=== PATIENT | male | born 1960 | race Caucasian/White ===

== ENCOUNTER → 2017-11-15 10:21 | Outpatient (CLI) | payer BC, SELFPAY ==
--- NOTE | 2017-11-15 10:23 | NM_ITS ---
CLINICAL: 57-year-old male with reported history of apparent pulmonary embolism and suspected pulmonary hypertension. VENTILATION-PERFUSION LUNG SCINTIGRAPHY COMPARISON: CTA of the chest report 09/11/2017, plain film chest radiograph report 11/15/2017 FINDINGS: The patient was administered 49.4 mCi 99m Tc DTPA aerosol. The aerosol ventilation study demonstrates normal ventilation defined in the bilateral lung marino. No segmental or subsegmental ventilatory defects are identified. There is no central clumping of the aerosol visualized. Following the intravenous administration of 5.1 mCi of 99m Tc MAA, the pulmonary perfusion study reveals uniform perfusion throughout both lung marino. There are no segmental or subsegmental perfusion defects consistently identified on review of sequential acquisitions-projections. NM/Lung Scan Vent/Perf IMPRESSION: 1. NORMAL 99m Tc DTPA aerosol ventilation/Tc 99m MAA pulmonary perfusion imaging examination, according to PIOPED II interpretive criteria. (Sojimman et al, Radiology 246: 941, 2008 Sobrit et al, J Nucl Med 49: 1741, 2008). 2. Patients with documented pulmonary hypertension and the presence of low probability, very low probability and normal ventilation-perfusion lung scintigraphy are associated with a low likelihood of thromboembolic pulmonary hypertension. (Mango et al, Chest 84: 679, 1983 Lisbona et al, AJR 144: 27, 1985). Electronically Signed: Tucker Arreguin DO at 8:21 EDT Tel , Service support ,
--- NOTE | 2017-11-15 11:05 | RAD_ITS ---
STUDY: X-RAY CHEST REASON FOR EXAM: Male, 57 years old. Cough and short of breath. TECHNIQUE: Frontal and lateral views of the chest. COMPARISON: 09/11/2017. FINDINGS: The lungs are clear and expanded. There is no demonstrated pleural abnormality. Normal size heart. Normal mediastinum and philomena. Normal visualized pulmonary arteries. Normal visualized aortic arch and descending thoracic aorta. There are diffuse degenerative changes of the visualized thoracic spine. Normal visualized ribs, clavicles, and shoulders. There is no demonstrated abnormality of the visualized soft tissue structures of the upper abdomen. RAD/Chest PA and Lateral IMPRESSION: No acute chest disease. Electronically Signed: Esvin Arnett MD at 16:52 EDT , Service support ,
== END ==
PROVIDERS: Family Provider Family Medicine; PCP Family Medicine; Visit Provider Nurse Practitioner Acute Care
DX: I26.99 Other pulmonary embolism without acute cor pulmonale (principal)
CPT/HCPCS: 71046; 78582; A9540; A9567

== ENCOUNTER → 2017-12-10 06:54 | Outpatient (CLI) | payer OTHER, SELFPAY ==
--- NOTE | 2017-12-11 08:34 | PFT ---
INTRODUCTION: The patient is a 57-year-old male currently under the care of Dr. Doyle that presents for pulmonary function testing secondary to a diagnosis of pulmonary embolism. Respiratory therapy reports good patient effort and reports no other concerns. Bronchodilators were used during testing. INTERPRETATION: Forced expiration spirometry demonstrates no evidence of a large airways obstructive ventilatory defect. There was no significant response to aerosolized bronchodilators, based upon strict ATS criteria. Spirograms are of good quality and plateau normally. The respiratory flow volume loop appears normal. Body plethysmography was performed and reveals lung volumes to be within normal limits. Diffusing capacity by single breath CO is within normal limits at 84% of predicted. IMPRESSION: These pulmonary function studies are essentially within normal limits. There has been little overall change in the patient's PFTs since 2016.
== END ==
PROVIDERS: Family Provider Family Medicine; PCP Family Medicine; Visit Provider Nurse Practitioner Acute Care
DX: I26.99 Other pulmonary embolism without acute cor pulmonale (principal)
CPT/HCPCS: 94060; 94726; 94729

== ENCOUNTER → 2018-01-29 08:58 | Outpatient (CLI) | payer OTHER, SELFPAY ==
[2018-02-01 12:07] LABS: Aspirgillus flavus Negative (Neg:<1:1); Aspirgillus fumigatus Negative (Neg:<1:1); Aspirgillus niger Negative (Neg:<1:1)
[2018-02-02 09:10] LABS: Immunoglobulin E 205 IU/mL (0-100)
[2018-02-13 10:00] LABS: Alternaria alternata <0.10 kU/L (Class 0); Bermuda Grass <0.10 kU/L (Class 0); Bluegrass, Kentucky <0.10 kU/L (Class 0); Cat Hair/Dander, Standard <0.10 kU/L (Class 0); D farinae Mite <0.10 kU/L (Class 0); D pteronyssinus <0.10 kU/L (Class 0); Dog Epithelia <0.10 kU/L (Class 0); Elm, American White <0.10 kU/L (Class 0); Oak, White <0.10 kU/L (Class 0); Plantain, English <0.10 kU/L (Class 0); Ragweed, Short/Common <0.10 kU/L (Class 0)
[2018-02-13 10:39] LABS: Mouse Urine <0.10 kU/L (Class 0)
== END ==
PROVIDERS: Family Provider Family Medicine; PCP Family Medicine; Visit Provider Nurse Practitioner Acute Care
DX: J45.50 Severe persistent asthma, uncomplicated (principal)
CPT/HCPCS: 82785; 86003; 86606

== ENCOUNTER 2018-07-31 14:36 | Emergency (ER) | payer OTHER, SELFPAY ==
[2018-07-21 10:15] VITALS: BMI 34.5
[2018-07-31 14:38] VITALS: BP 137/71; PULSE 72; RESP 18; TEMP 36.4; O2SAT 96; BMI 33.9
--- NOTE | 2018-07-31 14:54 | EKG12_ITS ---
Test Reason : DYSRHYTHMIA Blood Pressure : / mmHG Vent. Rate : 072 BPM Atrial Rate : 072 BPM P-R Int : 134 ms QRS Dur : 084 ms QT Int : 382 ms P-R-T Axes : 032 002 073 degrees QTc Int : 418 ms Normal sinus rhythm Confirmed by TORSTEN HOANG, ROSA MARIA ([id number]), editor managing newspaper SONAM SALAZAR ([id number]) on 08/05/2018 3:35:06 PM Referred By: ELISSA Confirmed By:ROSA MARIA SARMIENTO MD
--- NOTE | 2018-07-31 14:54 | RAD_ITS ---
STUDY: X-RAY CHEST REASON FOR EXAM: Male, 58 years old. Cough, chest pain TECHNIQUE: PA and lateral chest COMPARISON: 11/15/2017 x-ray chest, VQ scan 11/15/2017, CT chest 09/11/2017. FINDINGS: Acutely clear lungs. Hyperlucent features consistent with underlying COPD. Benign calcified granuloma of the right upper lobe. No effusion or pneumothorax. Normal cardiac mediastinal silhouette. No acute osseous process. Mildly prominent loops of small bowel in the upper abdomen, nonspecific. Gas-filled, great is diameter about 3.5 cm. Suspected air-fluid level. RAD/Chest PA and Lateral IMPRESSION: No acute cardiopulmonary process. Mildly conspicuous small bowel pattern in the upper abdomen, incomplete characterized. Follow-up supine and upright KUB is recommended. Electronically Signed: Tucker Hazel MD at 16:10 EST Tel , Service support ,
--- NOTE | 2018-07-31 14:58 | ED.VISSUMM ---
- ER Visit Summary Date of Service: 07/31/18 Chief Complaint: Cough, shortness of breath History of Present Illness: The patient is a 58 M with history of recurrent pneumonia and prior pulmonary embolus presents to the emergency department with cough and shortness of breath. Patient states that he had cough for the past 10 days. He actually saw Dr. Doyle in the office. He felt that was likely viral. He was placed on prednisone burst. He states that he did improve, but over the past 2 days, symptoms worsened. He has had cough, chest pain, productive sputum, nausea, and vomiting. He states this feels very similar to when he had pneumonia before. He states that his called Dr. Doyle's office and he was referred to the emergency department for further evaluation. He has had low-grade fever. He is also had chills. He denies any dysuria. He denies any change in bowel habits. He does have a prior pulmonary embolus in September, but is off anticoagulants. He states that he did have a surgery on his esophagus for reflux at [facility] 3 years ago so he does have pain when he vomits. Physical Examination: Vital signs reviewed General: Well-nourished, well-developed Head: Normocephalic, atraumatic Eyes: Pupils equal and reactive, extraocular muscles intact Neck, supple, no lymphadenopathy Heart: Regular rate and rhythm Respiratory: No distress, clear bilaterally Abdomen: Soft, mildly tender in the midepigastric area without rebound or guarding, softly distended, no peritoneal signs Back: Nontender Extremities: Nontender, no edema, no cords Skin: Normal color no rash Neuro: Alert and oriented, no focal or lateralizing deficits Test Results: [] Emergency Department Course and Treatment: The patient presents with cough, generalized malaise, but also has had nausea and vomiting. His abdomen was mildly distended and minimally tender in the midepigastric area. I initially started with a metabolic workup to rule out pneumonia given the patient's history. I also discussed the patient with Dr. Doyle. His labs are unremarkable except for mild leukocytosis. His chest x-ray shows no infiltrate, but he does had some air-fluid levels within his abdomen. Because of this, I obtained a noncontrast CT of his abdomen. This does demonstrate a small bowel obstruction with ileitis. The patient was covered with broad-spectrum antibiotics. It is not mechanical obstruction. After discussion with the patient and family, they are requesting transfer to [facility] where his surgeon is. The patient was discussed with the transfer line and was accepted by Dr. Culp. He will be transferred for surgical evaluation Treatment Plan: [] Disposition: Transfer Impression: 1. Nausea vomiting 2. Small bowel obstruction This note was generated with [employer] dictation software. It may contain incorrect words, spelling, and punctuation that were not noted in review of the chart prior to signing ED Disposition - Plan for ED Patient: Chief Complaint: General Illness Referrals: Arnulfo Garcia III, MD [Primary Care Provider] -
[2018-07-31 15:23] LABS: Absolute Lymphocyte Count 1.41 X10^3/ul (0.83-4.51); Absolute Neutrophil Count 9.9 X10^3/uL (2.0-7.7); Basophil# 0.06 X10^3/uL; Basophil% 0.5 % (0-1); Eosinophil# 0.13 X10^3/uL; Eosinophils% 1.1 % (0-5); Hematocrit 49.6 % (40-54); Hemoglobin 16.6 g/dl (13.0-16.5); Lymphocyte # 1.41 X10^3/ul (4.0); Lymphocyte % 11.6 % (19-41); Mean Corp Hgb Conc 33.5 g/gl (32-36); Mean Corpuscular Hgb 31.4 pg (27.0-32.0); Mean Corpuscular Volume 93.9 fL (80-94); Mean Platelet Vol. 8.9 fl (6.2-12.0); Monocyte% 5.7 % (0-10); Neutrophil # 9.87 X10^3/uL (2.7-7.7); Neutrophil % 80.9 % (47-70); Platelet Count 375 K/mm3 (150-450); RBC Distribution Width CV 12.4 % (11.6-14.6); RBC Distribution Width SD 42.5 fl (35.1-43.9); Red Blood Count 5.28 M/mm3 (4.6-6.2); White Blood Count 12.2 K/mm3 (4.4-11.0)
[2018-07-31] MEDS: 0.9% Normal Saline 1,000 ML 1000 ML IV (15:33)
[2018-07-31 15:34] VITALS: BP 133/84; PULSE 73; RESP 18; O2SAT 98
[2018-07-31 15:34] LABS: POSITIVE COUNT NO; POSITIVE DIFFERENTIAL NO; POSITIVE MORPHOLOGY NO
[2018-07-31 15:36] LABS: AST(SGOT) 20 U/L (15-37); Alanine Aminotransfer ALT/SGPT 30 U/L (16-61); Albumin, Serum 4.3 g/dL (3.2-5.0); Alkaline Phosphatase 157 U/L (45-117); Anion Gap 5 (5-15); BUN 9 mg/dL (7-18); Calcium,Total 9.2 mg/dL (8.5-10.1); Chloride 105 mmol/L (98-107); Creatinine, Serum 1.13 mg/dL (0.70-1.30); EST Glomerular Filtration Rate 71 mL/min (>60); Est Glom Filt Rate - Afr Amer 85 mL/min (>60); Estimated Creatinine Clearance 74.97 ml/min; Globulin 4.1 g/dL (2.2-4.2); Glucose 118 mg/dL (74-106); Lipase 97 U/L (73-393); Potassium 3.6 mmol/L (3.5-5.1); Protein, Total 8.4 g/dL (6.4-8.2); Sodium Level 140 mmol/L (136-145)
[2018-07-31 15:49] VITALS: O2SAT 95
[2018-07-31 15:50] LABS: Lactic Acid 0.8 mmol/L (0.4-2.0)
--- NOTE | 2018-07-31 16:00 | CT_ITS ---
STUDY: CT ABDOMEN AND PELVIS WITHOUT CONTRAST REASON FOR EXAM: Male, 58 years old. Abdominal pain, nausea, vomiting, diarrhea, body aches. History of appendectomy, cholecystectomy, hypertension. RADIATION DOSAGE (If Supplied By Facility): CTDIvol = ( 18.67 ) mGy, DLP = ( 1077.29 ) mGycm TECHNIQUE: Transaxial images were obtained from the dome of the diaphragm to the symphysis pubis without oral contrast, and without intravenous contrast. Sagittal and coronal images were reconstructed. Individualized dose optimization techniques were used for this CT. COMPARISON: CT abdomen and pelvis 06/17/2015. FINDINGS: Body wall soft tissues: No acute process. Osseous structures: Mild multilevel lumbar spondylosis without significant stenosis. Slight scoliosis. Ankylosis of the right SI joint. No significant degenerative features of the left. Mild hip joint degenerative changes. Inferior chest: Lung bases clear, normal cardiac base with no pericardial effusion. Minimal sliding hiatal hernia. There is mild thickening and fatty infiltration the wall of the distal most esophagus which may be associated with GERD and suggest chronic inflammation. Similar features seen on prior imaging of 2015. Hepatobiliary: Cholecystectomy. Borderline hepatomegaly, craniocaudal right liver 17.9 cm. Nondilated biliary tree. Pancreas: Mild atrophy. Spleen: Normal. Adrenal glands: Normal. Urogenital: There are small low-density cystlike foci of each kidney, the largest in the right renal superior pole, each stable compared to prior imaging of 2015, consistent with benignity. There is minimal chronic perinephric stranding. There is a solitary punctate nonobstructing calyceal calculus of the right renal superior pole measuring less than 2 mm. There are no retained calculi in the left kidney. Normal collecting systems, ureters, urinary bladder, prostate and seminal vesicles. Pelvic floor and sidewalls and retroperitoneum: No mass or adenopathy. Vasculature: No acute process. Stomach: Mild chronic fatty infiltration the wall the distal stomach, stable compared to imaging of 2015. Small bowel and mesentery: Mild chronic fatty infiltration the wall the duodenum without acute inflammatory features stable compared to prior imaging. Normal jejunum. Gradually increasing dilatation of fluid-filled ileum to the level of the distal ileum, where there is mild circumferential fatty infiltration and thickening of the wall of the distal and terminal ileum in a pattern consistent with sequela from prior ileitis, with evidence of very mild induration and hyperemia in the fat adjacent to a few segments, consistent with mild acute ileitis. The maximum caliber of the distal small bowel is 3.8 cm. There is no abrupt transition point. No evidence of mechanical obstruction. Large bowel: The appendix is surgically absent. There is mild fatty infiltration the wall of the ascending colon, hepatic flexure, transverse colon, splenic flexure descending colon and sigmoid, and rectum, suggesting sequela of prior inflammation without evidence of acute colitis at this time. Stable features compared to prior imaging. Free fluid or free air: None. CT/Abdomen/Pelvis without Cont IMPRESSION: Dilated ileum, fluid-filled, air-fluid levels, consistent with a low-grade partial obstruction secondary to acute distal ileitis. No evidence of focal mechanical obstruction. There is fatty infiltration in the wall of the distal stomach, proximal duodenum, distal ileum, terminal ileum and the entirety of the large bowel and rectum. These features have been present since prior imaging of 2014 and typically represents sequela of prior inflammation. The distribution suggests the possibility of underlying Crohn's disease. Electronically Signed: Tucker Hazel MD at 17:23 EST Tel , Service support ,
[2018-07-31] MEDS: Ondansetron 4 MG/2 ML Vial IV ×2 (16:08→17:23)
[2018-07-31 16:22] LABS: Bacteria 0 SEEN /hpf (None Seen); Mucous, Urine 0 SEEN /hpf (<or=2+); White Blood Cells 0 SEEN /hpf (0-5)
[2018-07-31 16:27] LABS: Color, Urine Yellow (Yellow); Glucose, Dipstick Normal (Normal); Ketone-Dipstick Negative (Negative); Leukocyte Esterase-Dipstick Negative /ul (Negative); Nitrite-Dipstick Negative (Negative); Occult Blood-Urine Negative /ul (Negative); Protein-Dipstick 15 mg/dl (Negative); Specific Gravity, Urine 1.005 (1.002-1.030); Urine Bilirubin Dipstick Negative (Negative); Urine Clarity Clear (Clear); Urine Urobilinogen Normal (Normal)
[2018-07-31 16:43] LABS: Red Blood Cells-Urine 0 SEEN /hpf (0-5); Squamous Epithelial Cells - UA 0 SEEN /hpf (0-5)
[2018-07-31] MEDS: Morphine 2 MG/ML Syringe IV ×2 (17:07→18:18)
--- NOTE | 2018-07-31 17:32 | RAD_ITS ---
STUDY: X-RAY - ABDOMEN/PELVIS REASON FOR EXAM: Male, 58 years old. NG placement TECHNIQUE: A single upright portable view of the lower chest and upper abdomen. COMPARISON: CT of the abdomen and pelvis, July 31, 2018. Chest, July 31, 2018. FINDINGS: Normal visualized lung bases. There is now an NG tube with its tip in the distal stomach. There is decompression of the stomach. Is continued distended gas-filled small bowel loops in the upper abdomen. There is no demonstrated free abdominal air. The visualized liver, spleen and kidneys are grossly normal in size and morphology. Cholecystectomy clips are again seen in the right upper quadrant. Normal soft tissue structures. Normal visualized osseous structures. RAD/Abdomen Single View (Portable) IMPRESSION: NG tube with its tip in the distal stomach. Electronically Signed: Marcelino Weeks DO at 19:03 EST Tel [phone], Service support ,
[2018-07-31 17:50] VITALS: PULSE 86; RESP 15
[2018-07-31 18:13] VITALS: BP 118/73; PULSE 85; RESP 14
--- NOTE | 2018-07-31 18:16 | NURSING ---
CALLED [facility] FOR TRANSPORT. ETA 45 MIN
[2018-07-31 18:55] VITALS: BP 127/62; PULSE 83; RESP 21; O2SAT 91
--- OUTSIDE RECORDS SUMMARY | 2018-09-25 21:36 | XMS RPT_ITS ---
:1960 Author Organization OHIP Support Name Relationship Address Phone Kimberly Cao Unavailable Unavailable + Martin Rodrigues Unavailable Unavailable + FAITH CAO Unavailable [address] + [place] [address] UE Unavailable Unavailable Unavailable FAITH CAO Unavailable [address] + [place] [address] UE Unavailable Unavailable Unavailable FAITH CAO Unavailable [address] + [place] [address] UE Unavailable Unavailable Unavailable FAITH CAO Unavailable [address] + [place] [address] UE Unavailable Unavailable Unavailable Kimberly Cao Unavailable Unavailable + Martin Rodrigues Unavailable Unavailable + FAITH CAO Unavailable [address] + [place] [address] UE Unavailable Unavailable Unavailable FAITH CAO Unavailable [address] + [place] [address] UE Unavailable Unavailable Unavailable Kimberly Cao Unavailable Unavailable + Martin Rodrigues Unavailable Unavailable + FAITH CAO Unavailable [address] + [place] [address] UE Unavailable Unavailable Unavailable FAITH CAO Unavailable [address] + [place] [address] SANOIL Unavailable [address] + [place] [address] JILL, FAITH Unavailable [address] + [place] [address] SANOIL Unavailable [address] + [place] [address] JILL FAITH Unavailable [address] + [place] [address] SANOIL Unavailable [address] + [place] [address] JILL FAITH Unavailable [address] + [place] [address] SANOIL Unavailable [address] + [place] [address] JILL FAITH Unavailable [address] + [place] [address] SANOIL Unavailable [address] + [place] [address] JILL FAITH Unavailable [address] + [place] [address] SANOIL Unavailable [address] + [place] [address] JILL FAITH Unavailable [address] + [place] [address] SANOIL Unavailable [address] + [place] [address] JILL FAITH Unavailable [address] + [place] [address] SANOIL Unavailable [address] + [place] [address] JILL FAITH Unavailable [address] + [place] [address] SANOIL Unavailable [address] + [place] [address] JILL FAITH Unavailable [address] [phone] [place] [address] SANOIL Unavailable [address] + [place] [address] JILL FAITH Unavailable [address] [phone] [place] [address] SANOIL Unavailable [address] + [place] [address] JILL FAITH Unavailable [address] [phone] [place] [address] SANOIL Unavailable [address] + [place] [address] JILL, FAITH Unavailable [address] [phone] [place] [address] SANOIL Unavailable [address] + [place] [address] JILL, FAITH Unavailable [address] + [place] [address] SANOIL Unavailable [address] + [place] [address] JILL FAITH Unavailable [address] + [place] [address] SANOIL Unavailable [address] + [place] [address] Care Team Providers Name Role Phone DIOGOBUL III JEANNETTE A Attending Unavailable CEBUL III, JEANNETTE A Referring Unavailable CEBUL III, JEANNETTE A Attending Unavailable CEBUL III, JEANNETTE A Referring Unavailable CEBUL III, JEANNETTE A Attending Unavailable CEBUL III, JEANNETTE A Referring Unavailable CEBUL III, JEANNETTE A Attending Unavailable TAYLORRIVERA MCBRIDE (BILINGUAL LOAN PROCESSOR) Attending Unavailable CHARIS PATRICIA (PA) Referring Unavailable TAYLORRIVERA (BILINGUAL LOAN PROCESSOR) Attending Unavailable CHARIS, PATRICIA (PA) Referring Unavailable TAYLORRIVERA (BILINGUAL LOAN PROCESSOR) Attending Unavailable TAYLORRIVERA (BILINGUAL LOAN PROCESSOR) Referring Unavailable TAYLORRIVERA (BILINGUAL LOAN PROCESSOR) Referring Unavailable CEBUL III, JEANNETTE A Attending Unavailable CEBUL III, JEANNETTE A Referring Unavailable TAYLOR RIVERA (BILINGUAL LOAN PROCESSOR) Attending Unavailable Naveen Lomax Attending Unavailable Cebul III, Jeannette Referring Unavailable Cebul III, Jeannette Primary Care Unavailable Naveen Lomax Attending Unavailable Cebul III, Jeannette Referring Unavailable Cebul III, Jeannette Primary Care Unavailable Cebul III, Jeannette Referring Unavailable Cebul III, Jeannette Primary Care Unavailable Guillermina Lester Attending Unavailable Cebul III, Jeannette Primary Care Unavailable Bubba Arroyo Admitting Unavailable Korey Dunn Attending Unavailable Bubba Arroyo Attending Unavailable Bernardino Armstrong Attending Unavailable Cebul III, Jeannette Referring Unavailable Nancy Morrison Attending Unavailable Bernardino Armstrong Attending Unavailable Cebul III, Jeannette Referring Unavailable Edy Redman Attending Unavailable Bubba Arroyo Referring Unavailable CebuJonnathan shah Attending Unavailable Korey Dunn Referring Unavailable Kyleigh Kelley Attending Unavailable Maribel, Karen Attending Unavailable Cebul III, Jeannette Referring Unavailable López, Karen Attending Unavailable Cebul III, Jeannette Primary Care Unavailable López, Karen Referring Unavailable López, Karen Attending Unavailable López, Karen Referring Unavailable Cebul III, Jeannette Primary Care Unavailable Dewayne Doyle Attending Unavailable Cebul III, Jeannette Referring Unavailable Nishant Combs D.O. Attending Unavailable Karen López Referring Unavailable Dewayne Doyle Attending Unavailable Cebul III, Jeannette Referring Unavailable Maribel, Karen Attending Unavailable Cebul III, Jeannette Referring Unavailable López, Karen Attending Unavailable López, Karen Referring Unavailable Cebul III, Jeannette Primary Care Unavailable Maribel, Karen Attending Unavailable Cebul III, Jeannette Referring Unavailable Cebul III, Jeannette Primary Care Unavailable Fletcher Lara Attending Unavailable Cebul III, Jeannette Referring Unavailable Fletcher Laar Attending Unavailable Cebul III, Jeannette Referring Unavailable Dewayne Doyle Attending Unavailable Cebul III, Jeannette Referring Unavailable Maribel, Karen Attending Unavailable Cebul III, Jeannette Referring Unavailable Cebul III, Jeannette Primary Care Unavailable Campbell Aguilar Attending Unavailable PROBLEMS PROBLEMS DATE TYPE CONDITION / CODE ATTENDING STATUS SOURCE 08/15/2018 Active [place] / NA Active [facility] K92.1(ICD-10) [facility] Main [place] Repository 07/21/2018 Unknown Z23 - Encounter for Maribel Active [place] immunization / Karen Replaced By [facility] Z23(ICD-10) Hospital Repository 05/29/2018 Active Personal history of NA Active [facility] pulmonary embolism / Clinic Main Z86.711(ICD-10) [place] Repository 05/29/2018 Active Severe persistent NA Active [facility] asthma with (acute) Clinic Main exacerbation / [place] J45.51(ICD-10) Repository 05/29/2018 Active Cough / R05(ICD-10) NA Active [facility] Main [place] Repository 05/29/2018 Active Shortness of breath NA Active [facility] / R06.02(ICD-10) Clinic Main [place] Repository 05/14/2018 Unknown J45.50 - Severe Vivek, Dewayne Active [place] persistent asthma, Community uncomplicated / Hospital J45.50(ICD-10) Repository 05/05/2018 Active Unknown / NA Active [facility] UNK(Unknown) Clinic Main [place] Repository 03/17/2018 Admitting Gastro-esophageal Lomax, Active [facility] Diagnosis reflux disease [facility] without esophagitis Repository / K21.9(ICD-10) 03/17/2018 Admitting Encntr for f/u exam Lomax, Active [facility] Diagnosis aft trtmt for cond [facility] oth than malig Repository neoplm / Z09(ICD-10) 03/17/2018 Admitting Disease of stomach Lomax, Active [facility] Diagnosis and duodenum, [facility] unspecified / Repository K31.9(ICD-10) 03/17/2018 Admitting Epigastric pain / [place], Active [facility] Diagnosis R10.13(ICD-10) [facility] Repository 03/17/2018 Admitting Essential (primary) Lomax, Active [facility] Diagnosis hypertension / [facility] I10(ICD-10) Repository 03/17/2018 Admitting Hyperlipidemia, [place], Active [facility] Diagnosis unspecified / [facility] E78.5(ICD-10) Repository 03/17/2018 Admitting Other specified Lomax, Active [facility] Diagnosis postprocedural [facility] states / Repository Z98.890(ICD-10) 03/17/2018 Admitting Acquired absence of Lomax, Active [facility] Diagnosis other specified [facility] parts of digestive Repository tract / Z90.49(ICD-10) 03/17/2018 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, Active [facility] Diagnosis use of [facility] anticoagulants / Repository Z79.01(ICD-10) 03/17/2018 Admitting Allergy status to Lomax, Active [facility] Diagnosis narcotic agent [facility] status / Repository Z88.5(ICD-10) 03/17/2018 Admitting Allergy status to Lomax, Active [facility] Diagnosis analgesic agent [facility] status / Repository Z88.6(ICD-10) 03/17/2018 Admitting Allergy status to Lomax, Active [facility] Diagnosis oth drug/meds/biol [facility] subst status / Repository Z88.8(ICD-10) 03/17/2018 Admitting Allergy status to Monie, Active [facility] Diagnosis other antibiotic [facility] agents status / Repository Z88.1(ICD-10) 03/17/2018 Admitting Latex allergy status Monie, Active [facility] Diagnosis / Z91.040(ICD-10) [facility] Repository 02/20/2018 Active 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 Active [facility] use of [facility] Main anticoagulants / [place] Z79.01(ICD-10) Repository 09/23/2017 Active Other fatigue / NA Active [facility] R53.83(ICD-10) [facility] Main [place] Repository 10/31/2017 Unknown M79.89 - Other Jonnathan Mosqueda Active [place] specified soft Community tissue disorders / Hospital M79.89(ICD-10) Repository 10/10/2017 Unknown R55 - Syncope and Feroz, Sawyer Active [place] collapse / Community R55(ICD-10) Hospital Repository PROCEDURES PROCEDURES No Procedure Records FoundRESULTS RESULTS CNOV Observed: 08/19/2018 Status: COMPLETED Source: [place] 11:00 AM [facility] REPOSITORY Office Visit (FAMPWS) DINESH CAO ([id number]) 1960 M Date Time Provider Department 08/19/18 11:00 AM RIVERA VAZQUEZ (BILINGUAL LOAN PROCESSOR) JAVAD During your visit today, we recorded the following information about you: Temperature Pulse Respiration Blood pressure 97.5 degrees 108/minute 20/minute 118/78 Weight 103.9 kg Rivera Vazquez APRN.CNP 08/19/2018 11:23 AM Signed Chief Complaint Patient presents with: Hospital F/U HPI Dinesh Cao is a 58 year old male who presents here today for Hospital Discharge Follow up. Patient presents to the office today for hospital follow-up. Patient was admitted to [facility] on 08/01/2018 and discharged on 08/12/2018. Reason for admission was small bowel obstruction. Originally presented to the emergency room for nausea, projectile vomiting, abdominal pain. General surgery and gastroenterology was consult. NG tube was placed for decompression and suction. CT scan was concerning for Crohn?s but gastroenterology did not agree as the patient had a colonoscopy 3 years prior without any evidence of Crohn?s disease. MRE showed mural thickening of the long segment of the terminal ileum, submucosal edema. On 08/06/2018 the NG tube was removed due to improvement. Nausea and vomiting returned. On 08/07 patient had an exploratory lap procedure. Diffusely dilated small bowel was found, adhesions were lysed. Patient improved and diet was advanced. Patient then started having nausea and vomiting again. KUB showed SBO. A scheduled colonoscopy was canceled. It was thought that a flexible sigmoidoscopy or colonoscopy would worsen the patient?s condition. There is discussion that this will be performed at a later date after the patient improved. Patient initially had 2 bowel movements and felt improved. Patient?s diet was eventually transitioned to a low fiber diet. TPN was also started throwing central line for nutrition support. Patient tolerated and was discharged in stable condition. C-diff. Patient was scheduled for follow-up with GI, Dr. Mills. He is going to follow up with Dr. Mills in October. He is also saw Dr. Del Valle for surgery follow up yesterday. TPN is completed. At this time, the patient states that the PICC team possibly hit a nerve while inserting the line. Tylenol has taken the edge off. Taking (2) every 8 hours. PICC line was removed prior to discharge. Has some left hand, 1st and 2nd digit numbness. He overall feel better. No abdominal. Nausea has improved. No blood in his stools. No vomiting. Does have increase flatus. Stools have progressed from a liquid to a semi-solid, brown. No fevers or chills. No chest pain or shortness of breath. Was able to tolerate liquids and a plain baked potato last night. Claiming that eating too many radishes on gi caused all these above symptoms. at this time, he is not agitated in any medications for his left finger numbness that would cause drowsiness, weight gain or fatigue. Past medical history, appointments, medications, allergies reviewed. Previous Medical History PAST MEDICAL HISTORY Diagnosis Date - Achilles tendinitis 02/10/2011 - Allergic rhinitis 02/27/2012 - ASHD (arteriosclerotic heart disease) 09/13/2011 - Asthma 11/03/2014 - Chronic cough - Cough syncope syndrome - Esophageal reflux Gastroesophageal reflux - Essential hypertension, benign - GERD (gastroesophageal reflux disease) - Hiatal hernia 06/17/2015 [facility] - see scanned documents - Hyperlipidemia LDL goal < 100 01/21/2013 - Peripheral vascular disease (HCC) - Pulmonary embolus (HCC) 09/23/2017 left - Severe persistent asthma with acute exacerbation - Syncope 11/06/2017 and collapse Previous Surgical History PAST SURGICAL HISTORY Procedure Laterality Date - APPENDECTOMY 1988 - COLONOSCOP W/ OR W/O [facility] SPEC 11/17/14 Colonoscopy - EGD W/O OR W/BRUSH/WASH 11/17/14 EGD - KNEE SCOPE,DIAGNOSTIC 08/31/2009 Arthroscopy, knee right [facility] - LAPAROSCOPIC CHOLEYCYSTECTOMY 1999 Cholecystectomy, lap - NASAL SEPTUM REPOS W STABILIZATION 06/2010 - PAST SURGICAL HISTORY OF ruptured valve on back of right knee - PAST SURGICAL HISTORY OF 08/31/09 repair of a torn mansicus - REVISE SECONDARY VARICOSITY 2003 Varicose Vein Surgery, BLE - VASECTOMY 1999 Family History FAMILY HISTORY Problem Relation Age of Onset - Hypertension Mother - other (renal stones [Other]) Father - Diabetes Son - other (GERD [Other]) Brother Patient Allergies ALLERGIES Allergen Reactions - Propofol (Pf) Other: See Comments Did'nt wake up - Vicodin [Hydrocodon* Other: See Comments Constipation, extreme sleepiness - Adhesive Tape (Georgina* - Claritin [Loratadin* Intolerance did not help with s/s - Latex Itching - Naprosyn [Naproxen] GI Upset - Simvastatin Other: See Comments leg muscle cramping - Tetracycline GI Upset - Vibramycin [Doxycyc* GI Upset Current Medications Current Outpatient Prescriptions on File Prior to Visit: albuterol (PROVENTIL) 2.5 mg /3 mL (0.083 %) nebulizer solution Use 3 mL via nebulizer every 4 hours as needed for Wheezing/Shortness of Breath. Use over 5-15minutes. amLODIPine (NORVASC) 5 mg tablet take 1 tablet by mouth once daily (Patient taking differently: take 2 tablet by mouth once daily) apixaban (ELIQUIS) 5 mg tab tab(s) Take 10 mg by mouth twice daily. atorvastatin (LIPITOR) 20 mg tablet Take 1 tablet by mouth once daily. chlorpheniramine maleate (CHLORPHEN SR) 12 mg TbER Take 12 mg by mouth every 12 hours. fluticasone-vilanterol (BREO ELLIPTA) 200-25 mcg/dose inhaler Inhale 1 Inhalation as instructed once daily. guaifenesin (MUCINEX ORAL) Take by mouth as needed. multivitamin ORAL tablet Take one(1) tablet daily. NYSTATIN ORAL Take 5 mL by mouth three times daily. Omeprazole 40 mg capsule Take 1 capsule by mouth once daily. PROAIR HFA 90 mcg/actuation inhaler triamcinolone acetonide (NASACORT) 55 mcg nasal inhaler Use 2 Sprays in the nose once daily. No current facility-administered medications on file prior to visit. 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 Reviewed relevant PMHx, PSHx, Social Hx, current medications and allergies. EXAM: BP 118/78 Pulse 108 Temp 36.4 ?C (97.5 ?F) (Tympanic) Resp 20 Wt 103.9 kg (229 lb) BMI 31.94 kg/m? General Appearance: Well appearing, alert, in no acute distress, well-hydrated, well nourished. and Overweight. Head: Normocephalic, no masses, lesions, tenderness or abnormalities. Eyes: Anicteric sclera. Pupils are equally round and reactive to light. Extraocular movements are intact. . Ears: External ears normal, canals clear. Nose/Sinuses: Nares normal, septum midline, mucosa normal, no drainage or sinus tenderness. Oropharynx: Lips, mucosa, and tongue normal, teeth and gums normal, oropharynx normal. Neck: Supple, no adenopathy; thyroid symmetric, normal size. Lungs: lungs clear to auscultation. No wheezing, rhonchi, rales. Heart: RRR without murmur, gallop, or rubs. No ectopy. Abdomen: Normal abdominal exam, Abdomen soft, non-tender. No masses, organomegaly. nBowel sounds are present but sluggish. Extremities: No deformities, edema.. Peripheral Pulses: Normal, Pulses: radial=4/4,dorsalis pedis=4/4, posterior tibial=4/4. Neurologic: Gait normal. Reflexes normal and symmetric. Equal chairman & co founder strength, does have a slightly decreased sensation to the 1st and 2nd digit of the left hand to light touch when compared to the right hand. Lymph Nodes: No cervical lymphadenopathy and No supraclavicular lymphadenopathy. Health Maintenance List HEPATITIS C SCREENING due on 2003 STATIN MED ADHERENCE due on 09/02/2018 STEROID INHALER PRESCRIBED due on 09/02/2018 STEROID INHALER ADHERENCE due on 09/02/2018 LDL CHOLESTEROL due on 02/20/2019 ANNUAL PCP TEAM CHRONIC DISEASE VISIT due on 07/01/2019 BP CONTROLLED (<130/80) due on 07/01/2019 DIABETES SCREEN due on 02/20/2021 PROSTATE CANCER SCREENING DISCUSSION due on 07/13/2021 LIPID SCREEN due on 02/20/2023 COLORECTAL CANCER SCREENING,SEE MODIFIER due on 11/17/2024 DTAP,TDAP,TD(3 - Tdap) due on 02/15/2025 INFLUENZA Completed Data reviewed [facility] discharge instructions, MRE results reviewed. ASSESSMENT/PLAN: 1. SBO (small bowel obstruction) (HCC) - ICD9: 560.9, ICD10: K56.609 (primary diagnosis) - resolved, continue follow with GI. 2. Paresthesia - ICD9: 782.0, ICD10: R20.2 - possible trauma from PICC line insertion to the left arm. Does have first and second digit paresthesia. States that Tylenol is taking away the pain. He deferred a prescription of gabapentin as I instructed him on the side effects of weight gain, fatigue, sedation. He would like to monitor this time. 3. Mural thickening of colon - ICD9: 569.89, ICD10: K63.9 - questionable for Crohn's. Did have a normal colonoscopy 3 years ago without evidence of Crohn's disease. Is being followed by a aeronautics commission director in [place] and states that they are thinking of re-performing a colonoscopy in October once he is back to normal bowel health. 4. Hospital discharge follow-up - ICD9: V67.59, ICD10: Z09 - See above. follow-up in 3 months with PCP for routine care. Rivera Vazquez APRN.BILINGUAL LOAN PROCESSOR Referring Provider: SELF [[id number]] Allergies As of Date: 08/19/2018 Noted Allergy Reaction PROPOFOL (PF) 11/17/2014 14 - Other: See Comments Comments: Did'nt wake up VICODIN (HYDROCODONE-ACETAMINOPHE*02/10/2011 14 - Other: See Comments Comments: Constipation, extreme sleepiness ADHESIVE TAPE (ROSINS) 10/28/2009 CLARITIN (LORATADINE) 12/15/2008 5 - Intolerance Comments: did not help with s/s LATEX 09/26/2012 9 - Itching NAPROSYN (NAPROXEN) 11/26/2005 8 - GI Upset SIMVASTATIN 01/13/2013 14 - Other: See Comments Comments: leg muscle cramping TETRACYCLINE 11/26/2005 8 - GI Upset VIBRAMYCIN (DOXYCYCLINE CALCIUM) 11/26/2005 8 - GI Upset Date Reviewed: 08/19/2018 Reviewed by: Ameena Alexander Care Administrative Tech - Fully Assessed Reason for Visit: Hospital F/U [57] Primary Visit Diagnosis:SBO (small bowel obstruction) ([facility]) [K56.609] Other Visit Diagnoses:Paresthesia [R20.2] Mural thickening of colon [K63.9] Hospital discharge follow-up [Z09] Prescriptions as of 08/19/2018 Sig: ALBUTEROL SULFATE 2.5 MG/3 ML* Use 3 mL via nebulizer every * AMLODIPINE 5 MG TABLET take 1 tablet by mouth once d* Patient taking differently: take 2 tablet by mouth once d* APIXABAN 5 MG TABLET Take 10 mg by mouth twice mukund* ATORVASTATIN 20 MG TABLET Take 1 tablet by mouth once d* CHLORPHENIRAMINE ER 12 MG TAB* Take 12 mg by mouth every 12 * FLUTICASONE 200 MCG-VILANTERO* Inhale 1 Inhalation as instru* MUCINEX ORAL Take by mouth as needed. * MULTIVITAMIN TABLET Take one(1) tablet daily. NYSTATIN ORAL Take 5 mL by mouth three time* OMEPRAZOLE 40 MG CAPSULE,RAVEN* Take 1 capsule by mouth once * PROAIR HFA 90 MCG/ACTUATION A* TRIAMCINOLONE ACETONIDE 55 MC* Use 2 Sprays in the nose once* Problem List As Of Date 08/19/2018 Noted Resolved ASTHMA UNSPECIFIED [J45.909] INVALID FOR*10/04/2014 ESOPHAGEAL REFLUX [K21.9] INVALID FOR* Essential Hypertension, Benign [I10] INVALID FOR* Achilles tendinitis [M76.60] INVALID FOR*10/04/2014 ASHD (arteriosclerotic heart disease) [I25.10] INVALID FOR* Allergic rhinitis [J30.9] INVALID FOR* Hyperlipidemia with target LDL less than 100 [E*INVALID FOR* 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 Follow-up and Disposition History Recorded Encounter Status:Closed by RIVERA VAZQUEZ CNP on 08/19/18 PROGRESS Observed: 08/19/2018 Status: COMPLETED Source: [place] 10:58 AM [facility] [place] REPOSITORY HNO ID: [id number] Author: Rivera Vazquez Service: (none) Author Type: Nurse Practitioner Type: Progress Notes Filed: 08/19/2018 11:23 AM Note Text: Chief Complaint Patient presents with: Hospital F/U HPI Dinesh Cao is a 58 year old male who presents here today for Hospital Discharge Follow up. Patient presents to the office today for hospital follow-up. Patient was admitted to [facility] on 08/01/2018 and discharged on 08/12/2018. Reason for admission was small bowel obstruction. Originally presented to the emergency room for nausea, projectile vomiting, abdominal pain. General surgery and gastroenterology was consult. NG tube was placed for decompression and suction. CT scan was concerning for Crohn?s but gastroenterology did not agree as the patient had a colonoscopy 3 years prior without any evidence of Crohn?s disease. MRE showed mural thickening of the long segment of the terminal ileum, submucosal edema. On 08/06/2018 the NG tube was removed due to improvement. Nausea and vomiting returned. On 08/07 patient had an exploratory lap procedure. Diffusely dilated small bowel was found, adhesions were lysed. Patient improved and diet was advanced. Patient then started having nausea and vomiting again. KUB showed SBO. A scheduled colonoscopy was canceled. It was thought that a flexible sigmoidoscopy or colonoscopy would worsen the patient?s condition. There is discussion that this will be performed at a later date after the patient improved. Patient initially had 2 bowel movements and felt improved. Patient?s diet was eventually transitioned to a low fiber diet. TPN was also started throwing central line for nutrition support. Patient tolerated and was discharged in stable condition. C-diff. Patient was scheduled for follow-up with GI, Dr. Mills. He is going to follow up with Dr. Mills in October. He is also saw Dr. Del Valle for surgery follow up yesterday. TPN is completed. At this time, the patient states that the PICC team possibly hit a nerve while inserting the line. Tylenol has taken the edge off. Taking (2) every 8 hours. PICC line was removed prior to discharge. Has some left hand, 1st and 2nd digit numbness. He overall feel better. No abdominal. Nausea has improved. No blood in his stools. No vomiting. Does have increase flatus. Stools have progressed from a liquid to a semi-solid, brown. No fevers or chills. No chest pain or shortness of breath. Was able to tolerate liquids and a plain baked potato last night. Claiming that eating too many radishes on caused all these above symptoms. at this time, he is not agitated in any medications for his left finger numbness that would cause drowsiness, weight gain or fatigue. Past medical history, appointments, medications, allergies reviewed. Previous Medical History PAST MEDICAL HISTORY Diagnosis Date - Achilles tendinitis 02/10/2011 - Allergic rhinitis 02/27/2012 - ASHD (arteriosclerotic heart disease) 09/13/2011 - Asthma 11/03/2014 - Chronic cough - Cough syncope syndrome - Esophageal reflux Gastroesophageal reflux - Essential hypertension, benign - GERD (gastroesophageal reflux disease) - Hiatal hernia 06/17/2015 [facility] - see scanned documents - Hyperlipidemia LDL goal < 100 01/21/2013 - Peripheral vascular disease (HCC) - Pulmonary embolus (HCC) 09/23/2017 left - Severe persistent asthma with acute exacerbation - Syncope 11/06/2017 and collapse Previous Surgical History PAST SURGICAL HISTORY Procedure Laterality Date - APPENDECTOMY 1988 [facility]14 Colonoscopy - EGD W/O OR W/BRUSH/WASH 11/17/14 EGD - KNEE SCOPE,DIAGNOSTIC 08/31/2009 Arthroscopy, knee right [facility] - LAPAROSCOPIC CHOLEYCYSTECTOMY 1999 Cholecystectomy, lap - NASAL SEPTUM REPOS W STABILIZATION 06/2010 - PAST SURGICAL HISTORY OF ruptured valve on back of right knee - PAST SURGICAL HISTORY OF 08/31/09 repair of a torn mansicus - REVISE SECONDARY VARICOSITY 2003 Varicose Vein Surgery, BLE - VASECTOMY 1999 Family History FAMILY HISTORY Problem Relation Age of Onset - Hypertension Mother - other (renal stones [Other]) Father - Diabetes Son - other (GERD [Other]) Brother Patient Allergies ALLERGIES Allergen Reactions - Propofol (Pf) Other: See Comments Did'nt wake up - Vicodin [Hydrocodon* Other: See Comments Constipation, extreme sleepiness - Adhesive Tape (Georgina* - Claritin [Loratadin* Intolerance did not help with s/s - Latex Itching - Naprosyn [Naproxen] GI Upset - Simvastatin Other: See Comments leg muscle cramping - Tetracycline GI Upset - Vibramycin [Doxycyc* GI Upset Current Medications Current Outpatient Prescriptions on File Prior to Visit: albuterol (PROVENTIL) 2.5 mg /3 mL (0.083 %) nebulizer solution Use 3 mL via nebulizer every 4 hours as needed for Wheezing/Shortness of Breath. Use over 5-15minutes. amLODIPine (NORVASC) 5 mg tablet take 1 tablet by mouth once daily (Patient taking differently: take 2 tablet by mouth once daily) apixaban (ELIQUIS) 5 mg tab tab(s) Take 10 mg by mouth twice daily. atorvastatin (LIPITOR) 20 mg tablet Take 1 tablet by mouth once daily. chlorpheniramine maleate (CHLORPHEN SR) 12 mg TbER Take 12 mg by mouth every 12 hours. fluticasone-vilanterol (BREO ELLIPTA) 200-25 mcg/dose inhaler Inhale 1 Inhalation as instructed once daily. guaifenesin (MUCINEX ORAL) Take by mouth as needed. multivitamin ORAL tablet Take one(1) tablet daily. NYSTATIN ORAL Take 5 mL by mouth three times daily. Omeprazole 40 mg capsule Take 1 capsule by mouth once daily. PROAIR HFA 90 mcg/actuation inhaler triamcinolone acetonide (NASACORT) 55 mcg nasal inhaler Use 2 Sprays in the nose once daily. No current facility-administered medications on file prior to visit. 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 Reviewed relevant PMHx, PSHx, Social Hx, current medications and allergies. EXAM: BP 118/78 Pulse 108 Temp 36.4 ?C (97.5 ?F) (Tympanic) Resp 20 Wt 103.9 kg (229 lb) BMI 31.94 kg/m? General Appearance: Well appearing, alert, in no acute distress, well-hydrated, well nourished. and Overweight. Head: Normocephalic, no masses, lesions, tenderness or abnormalities. Eyes: Anicteric sclera. Pupils are equally round and reactive to light. Extraocular movements are intact. . Ears: External ears normal, canals clear. Nose/Sinuses: Nares normal, septum midline, mucosa normal, no drainage or sinus tenderness. Oropharynx: Lips, mucosa, and tongue normal, teeth and gums normal, oropharynx normal. Neck: Supple, no adenopathy; thyroid symmetric, normal size. Lungs: lungs clear to auscultation. No wheezing, rhonchi, rales. Heart: RRR without murmur, gallop, or rubs. No ectopy. Abdomen: Normal abdominal exam, Abdomen soft, non-tender. No masses, organomegaly. nBowel sounds are present but sluggish. Extremities: No deformities, edema.. Peripheral Pulses: Normal, Pulses: radial=4/4,dorsalis pedis=4/4, posterior tibial=4/4. Neurologic: Gait normal. Reflexes normal and symmetric. Equal chairman & co founder strength, does have a slightly decreased sensation to the 1st and 2nd digit of the left hand to light touch when compared to the right hand. Lymph Nodes: No cervical lymphadenopathy and No supraclavicular lymphadenopathy. Health Maintenance List HEPATITIS C SCREENING due on 2003 STATIN MED ADHERENCE due on 09/02/2018 STEROID INHALER PRESCRIBED due on 09/02/2018 STEROID INHALER ADHERENCE due on 09/02/2018 LDL CHOLESTEROL due on 02/20/2019 ANNUAL PCP TEAM CHRONIC DISEASE VISIT due on 07/01/2019 BP CONTROLLED (<130/80) due on 07/01/2019 DIABETES SCREEN due on 02/20/2021 PROSTATE CANCER SCREENING DISCUSSION due on 07/13/2021 LIPID SCREEN due on 02/20/2023 COLORECTAL CANCER SCREENING,SEE MODIFIER due on 11/17/2024 DTAP,TDAP,TD(3 - Tdap) due on 02/15/2025 INFLUENZA Completed Data reviewed [facility] discharge instructions, MRE results reviewed. ASSESSMENT/PLAN: 1. SBO (small bowel obstruction) (HCC) - ICD9: 560.9, ICD10: K56.609 (primary diagnosis) - resolved, continue follow with GI. 2. Paresthesia - ICD9: 782.0, ICD10: R20.2 - possible trauma from PICC line insertion to the left arm. Does have first and second digit paresthesia. States that Tylenol is taking away the pain. He deferred a prescription of gabapentin as I instructed him on the side effects of weight gain, fatigue, sedation. He would like to monitor this time. 3. Mural thickening of colon - ICD9: 569.89, ICD10: K63.9 - questionable for Crohn's. Did have a normal colonoscopy 3 years ago without evidence of Crohn's disease. Is being followed by a aeronautics commission director in [place] and states that they are thinking of re-performing a colonoscopy in October once he is back to normal bowel health. 4. Hospital discharge follow-up - ICD9: V67.59, ICD10: Z09 - See above. follow-up in 3 months with PCP for routine care. Rivera Vazquez APRN.BILINGUAL LOAN PROCESSOR C DIFFICILE PCR Collected: 08/15/2018 Status: F Source: [facility] 4:15 PM [facility] [place] REPOSITORY TYPE CODE TESTS RESULT OUT OF REFERENCE UNITS RANGE LAB CDFRES C difficile PCR Negative for C. difficile toxin by PCR Performed By: #### CDPCR #### [facility] [address] [place], [place] [address] OP NOTE Observed: 08/12/2018 Status: F Source: [facility] 4:53 PM SYSTEM REPOSITORY RYAN DEL VALLE MD , FACS, [facility] ADVANCED LAPAROSCOPY, BARIATRIC AND ROBOTIC SURGERY [facility] OPERATIVE REPORT PATIENT: Dinesh Cao Date of : 1960 Service Date: 08/19/18 PROCEDURE: 1. LAPAROSCOPIC LYSIS OF ADHESIONS SURGEON: Ryan Del Valle MD LIQUIFIED NATURAL GAS TECHNICIAN: Hannah Salmon MD - Dr. Hannah Salmon was requested to assist on this complex laparoscopic procedure as not qualified assistants were available. Amber Sims DO PRE-OPERATIVE DIAGNOSES: 1. Small bowel obstruction POST-OPERATIVE DIAGNOSES: Same plus intestinal adhesions ANESTHESIA: General endotracheal Transverse abdominis plane block FLUIDS: Crystalloid ESTIMATED BLOOD LOSS: Minimal URINE OUTPUT: Not recorded PREOPERATIVE MEDICATIONS: Pre-operative IV antibiotics: 2 gm cefazolin INDICATIONS FOR PROCEDURE: The patient is a 58 y.o. male with several days history of abdominal distention and pain who has been worked up for ileus versus small bowel obstruction. He has undergone several imaging studies and there was concern for possible new presentation of Crohn's disease versus intestinal adhesions from previous surgical intervention. As the patient did not progress we conferred with the gastrointestinal service was also following the patient and a request was made for diagnostic laparoscopy. The patient was evaluated and surgical intervention was recommended. The risks, benefits and options of the procedure and additional possible interventions were reviewed and all questions were answered to the patient's satisfaction. DESCRIPTION OF PROCEDURE: The patient was transported to the operating room and identified by name and number. An operating room team time out was performed confirming the identity of the patient and the planned procedure. The patient was placed on the operating room table in the supine position and general endotracheal anesthesia was administered by members of the anesthesia team. Following placement of sequential compression devices, the patients extremities were positioned and protected. The abdomen was prepped and draped in standard surgical fashion. Access to the abdominal cavity was obtained in the left upper quadrant at Kate's point using an optical trocar. Pneumoperitoneum was established and a brief exploration of the abdominal cavity was performed. Findings included a somewhat injected and dilated small bowel without a clear transition point and evidence of extensive adhesions in the right lower quadrant related to the patient's open appendectomy. Additional 5-mm trocars were carefully placed under direct visualization, one at the umbilicus and one in the suprapubic region . We proceeded with carefully evaluating the bowel and running it towards the terminal ileum. There were extensive adhesions between the loops and to the anterior abdominal wall related to the patient's previous open appendectomy. Extensive adhesio lysis was undertaken taking down the scar tissue and carefully opening up the loops of small bowel. With identified the sail of Treves and subsequently ran the entire bowel back to the ligament of Treitz. We then ran the small bowel antegrade back to the terminal ileum. There were no transition points identified and there was no evidence of Crohn's disease. The bowel was diffusely injected and slightly dilated. The colon was then carefully run along its length and there was no evidence of external pathology. An evaluation of the upper abdomen revealed the stomach to liver and the spleen and there was no evidence of pathology. We also looked into the patient's pelvis and followed the sigmoid colon down to the rectum and no additional pathology was seen. At the end of the operation, the trocars were carefully removed under direct visualization and the pneumoperitoneum was evacuated. The skin incisions were closed using 4-0 Vycril suture in subcuticular fashion. This was followed by steri strips and sterile dressings. The needle, sponge and instrument counts were correct. The patient tolerated the procedure and the anesthesia well without any major complications. The patients was transported to the post-anesthesia care unit in stable condition. I was present for the entire duration of the procedure. HARGE SUMMARY Observed: 08/12/2018 Status: F Source: [facility] 4:52 PM SYSTEM REPOSITORY Discharge instructions given to pt and . Both expressed understanding. Soft diet recommended to pt. DISCHARGE SUMMARY Observed: 08/12/2018 Status: F Source: [facility] 3:10 PM SYSTEM REPOSITORY Discharge Summary Dinesh Cao : 1960 ADMIT DATE: 08/01/2018 DISCHARGE DATE: 08/12/2018 PRIMARY CARE PHYSICIAN: Jonnathan Mosqueda MD VISIT STATUS: Admission CODE STATUS: Full Code DISCHARGE DIAGNOSES: Principal Problem: Small bowel obstruction (HCC) Active Problems: Acute intestinal obstruction (HCC) Hyperlipidemia Hypertension GERD (gastroesophageal reflux disease) Asthma Moderate protein-calorie malnutrition (HCC) Hypokalemia Resolved Problems: * No resolved hospital problems. * HOSPITAL COURSE: Patient is a 58-year-old white male who presented to the emergency department because of severe nausea, vomiting, and abdominal pain beginning one day prior to arrival. Patient noted 2 days of frequent loose stools 3-4 days prior to arrival which since stopped. Patient also noted feeling out of sorts just prior to onset of nausea and vomiting. Emesis was described as projectile. No blood. Green/yellow color. No similar episodes in the past. Patient has no gastrointestinal disease other than GERD. Remote history of cholecystectomy and appendectomy. Imaging studies showed SBO. Please see below for results of study. General surgery was consulted. GI also consulted. NG tube placed. Surgery on board and concern for Crohn's disease based on CT scan, but GI felt this is an unusual presentation of Crohn's disease.?SBFT not diagnostic and ?MRE ordered and GI recommends waiting for results before initiating therapy. GI states If concerns for Crohn's, could consider steroids, but review MRE first. Colonoscopy 3 years ago with no evidence of Crohn's disease.- On 08/04, Patient states abdominal pain and nausea is improving - Patient overall clinically improving, tolerating some PO (popsicles) and passed gas yesterday - MRE showed: Long segment of terminal ileum which demonstrates mural thickening, submucosal edema, restricted diffusion and abnormal enhancement. Findings are concerning for ileitis, which could be infectious or inflammatory etiology, including Crohn's disease. Note however that there is no lymphadenopathy or mesenteric hypervascularity which could typically be seen in acute Crohn's disease - In the setting of patient clinical improvement and no documented hx of Chron's disease, GI recommended holding off on steroids -GI states Surgery following, may consider surgical intervention if patient does not improve. On 08/06, NGT removed due to improvement on KUB however patient got worst again with nausea and vomiting overnight. Less flatus. ?Surgery states that patient Failed trial without NGT. diagnostic laparoscopy today possible bowel resection was recommended. Patient underwent diagnostic lap on 08/07. they found diffusely dilated small bowel without clear transition point. Mild adhesions to omentum lysed. Clear free fluid in pelvis sent for culture. No fat wrapping. Patient kept npo post op and Dr. Kennedy consulted for TPN. Diet was slowly advanced and surgery spoke with GI for colonoscopy. Patient continued to do well post op and was drinking golytely fine however later in the evening started getting severe NV again. Colonoscopy was cancelled per GI as repeat kub showed partial SBO again. Dr. Salazar from GI felt that thescoping can make his symptoms worst and recommended To do this later on maybe 4 weeks out. Patient had 2 bm this am and feels a lot better again. Surgery saw him and states Ileus improving. After discussion with patient, GI and surgery no colonoscopy or flex sig at this time - Advance diet as tolerated from clears to low fiber - Ok for discharge when tolerating a diet. Patient is wanting to go home. This tolerated all his diet this am. Has NO NV. He is passing gas and again had 2 BM this am. Physical exam: Heart: S1S2 heard RRR Lungs: CTAB ABdom: soft mild tenderness from surgery but bs positive although weak/rare. ? SIGNIFICANT DIAGNOSTIC STUDIES: ? IMPRESSION: small bowel follow through ? Mild diffuse distention of small bowel with delayed transit time suggestive of small bowel obstruction. Study was terminated at 9.5 hours. Follow-up abdominal imaging is suggested. IMPRESSION: ?MRI abdomen 1. There is a long segment of terminal ileum which demonstrates mural thickening, submucosal edema, restricted diffusion and abnormal enhancement. Findings are concerning for ileitis, which could be infectious or inflammatory etiology, including Crohn's disease. Note however that there is no lymphadenopathy or mesenteric hypervascularity which could typically be seen in acute Crohn's disease. Consider endoscopy. 2. The above inflammatory changes results in stenosis with small bowel obstruction. 3. Nonloculated fluid in the mid lower abdomen, new from the prior study. Moderate amount of free pelvic fluid. CONSULTANTS: Surgery GI RECOMMENDED NEXT STEPS: DISCHARGE MEDICATIONS: Dinesh Cao Home Medication Instructions TORRI:[id number] Printed on:08/12/18 9039 Medication Information albuterol (PROVENTIL) (2.5 MG/3ML) 0.083% nebulizer solution Take 2.5 mg by nebulization every 6 hours as needed for Wheezing amLODIPine (NORVASC) 5 MG tablet Take 5 mg by mouth daily atorvastatin (LIPITOR) 20 MG tablet Take 20 mg by mouth daily esomeprazole Magnesium (NEXIUM) 40 MG PACK Take 40 mg by mouth daily guaiFENesin 400 MG tablet Take 400 mg by mouth 2 times daily as needed for Cough montelukast (SINGULAIR) 10 MG tablet Take 10 mg by mouth nightly Multiple Vitamins-Minerals (THERAPEUTIC MULTIVITAMIN-MINERALS) tablet Take 1 tablet by mouth daily DIET: PN-Adult 3 IN 1 Central Line (Custom) DIET LOW FIBER; ACTIVITY: No restriction. up with assist COMPLEXITY OF FOLLOW UP: [] Moderate Complexity: follow up within 7-14 calendar days (05361) [] Severe Complexity: follow up within 7 calendar days (66051) FOLLOW UP TESTING, PENDING RESULTS OR REFERRALS AT TRANSITIONAL CARE VISIT: [] Yes [] No PENDING STUDIES: No DISPOSITION: Home FACILITY/HOME CARE AGENCY NAME: Follow up with Jonnathan Mosqueda MD in 1 week Also follow up with Dr. Del Valle in 1 week on a Saturday (like you were already scheduled) Follow up with GI Dr. Mills in [place] INSTRUCTIONS TO MA/SW: Please call patient on day after discharge (must document patient contacted within 2 business days of discharge). FOLLOW UP QUESTIONS FOR MA/SW: 1. Did you get medications filled and taking them as instructed from discharge? 2. Are you following your discharge instructions from your hospital stay? 3. Please confirm patient is scheduled for a follow up appointment within the above time frame. DISCHARGE TIME: > 30 minutes SIGNED: ALEXANDRA GABRIEL MD 08/12/2018, 3:10 PM HEMOGRAM W/ AUTODIFF Collected: 08/12/2018 Status: F Source: [facility] 2:37 AM SYSTEM REPOSITORY TYPE CODE TESTS RESULT OUT OF REFERENCE UNITS RANGE LAB IWBC 3.6-10.7 10*3/uL WBC Normal 7.9 LAB RBC 4.40-5.90 10*6/uL Low RBC 4.18 LAB HGB 13.0-18.0 g/dL Hemoglobin Normal 13.0 LAB HCT 40.0-52.0 % Low Hematocrit 38.7 LAB MCV 80.0-98.0 fL MCV Normal 92.4 LAB MCH 26.0-34.0 pg MCH Normal 31.1 LAB MCHC 32.0-36.0 % MCHC Normal 33.6 LAB RDW 11.5-14.5 % RDW Normal 12.5 LAB PLT 140-440 10*3/uL Platelet Normal 386 LAB MPV 7.4-10.4 fL MPV Normal 7.8 LAB GRAN% 40.0-80.0 % Granulocytes Normal 65.7 LAB LYMP% 20.0-40.0 % Lymphocytes Normal 22.5 LAB MONO% 2.0-10.0 % Monocytes Normal 7.5 LAB EOS% 1.0-6.0 % Eosinophils Normal 3.6 LAB BAS% 0.0-2.0 % Basophils Normal 0.7 LAB ANC 1.8-7.0 10*3/uL Abs Normal Neutrophile Cnt 5.2 LAB ALC 1.0-4.3 10*3/uL Abs Lymph Cnt Normal 1.8 LAB AMC 0.0-0.8 10*3/uL Abs Monocyte Normal Cnt 0.6 LAB AEC 0.0-0.5 10*3/uL Abs Eosin Cnt Normal 0.3 LAB ABC 0.0-0.2 10*3/uL Abs Baso Cnt Normal 0.1 Performed By: #### HEMDF, PHOS3, BMP3, MG3 #### [facility] [address] [place] [id number] PHOSPHORUS Collected: 08/12/2018 Status: F Source: [facility] 2:37 AM SYSTEM REPOSITORY TYPE CODE TESTS RESULT OUT OF RANGE REFERENCE UNITS LAB PHOS3 2.5-4.5 mg/dL Normal Phosphorus 3.6 Performed By: #### HEMDF, PHOS3, BMP3, MG3 #### [facility] [address] [place] [id number] BASIC METABOLIC PANEL Collected: 08/12/2018 Status: F Source: [facility] 2:37 AM SYSTEM REPOSITORY TYPE CODE TESTS RESULT OUT OF RANGE REFERENCE UNITS LAB NA3 135-145 mmol/L Normal Sodium 140 Result Comment: NOTE: New Sodium Reference Range effective 2018 @ 10:00 LAB K3 3.5-5.1 mmol/L Normal Potassium 3.6 LAB CL3 98-107 mmol/L High Chloride 109 LAB CO23 22-30 mmol/L Normal Carbon Dioxide 25 LAB ANIN3 NA Anion Gap 6 LAB GLUC3 70-100 mg/dL Normal Glucose 93 LAB BUN3 7-20 mg/dL Normal Urea Nitrogen 17 LAB CRET3 0.52-1.25 mg/dL Normal Creatinine 0.62 LAB GF3BR >60 mL/min eGFR > 60.0 LAB GF3WR >60 mL/min eGFR OTHER > 60.0 Result Comment: Source- MDRD equation with creatinine calibration to IDMS(NKDEP) eGFR not recommended for drug dose adjustment LAB CA3 8.4-10.4 mg/dL Normal Calcium 8.4 Performed By: #### HEMDF, PHOS3, BMP3, MG3 #### [facility] [address] [id number] MAGNESIUM Collected: 08/12/2018 Status: F Source: [facility] 2:37 AM SYSTEM REPOSITORY TYPE CODE TESTS RESULT OUT OF RANGE REFERENCE UNITS LAB MG3 1.6-2.3 mg/dL Normal Magnesium 2.2 Performed By: #### HEMDF, PHOS3, BMP3, MG3 #### [facility] [address] [phone] CR ABDOMEN AP Observed: 08/11/2018 Status: F Source: [facility] 10:52 AM SYSTEM REPOSITORY Patient Name: DINESH CAO Diagnostic Radiology Exam Date/Time 08/11/2018 10:50:56 EST Exam CR Abdomen AP Ordering Physician [id number] DELACRUZ Accession Number [id number] CPT4 Codes 73664 () Reason For Exam distenion, SBO Report Clinical: 58-year-old male patient on 6 W. with small bowel obstruction, distention, abdominal pain and vomiting. Abdomen, AP, 10:45 AM, 08/11/2018. 2 AP abdominal radiographs are obtained, one centered high to include the upper abdomen, the second centered lower to include the pelvis. Features supporting the possible diagnosis of Crohn's disease have been demonstrated on MRI of the abdomen done on 08/03/2018. The barium administered for a small bowel follow-through on 07/15/2018 has progressed distally into the large bowel, showing that there is partial small bowel obstruction. There remains distended gas-filled small bowel loops in the mid and upper abdomen. The large bowel is not dilated. The small amount of contrast material and air in the ascending colon and sigmoid demonstrate what appear to be superficial ulcerations at the sigmoid, this would further favor the diagnosis of Crohn's disease. There is some residual contrast seen also in the ascending colon. There are surgical clips at the infra inguinal regions on both sides. IMPRESSION: 1. Distended small bowel loops in the mid and upper abdomen, showing persistence of an obstructive pattern. The oral contrast is seen in the colon, indicating this is partial small bowel obstruction. 2. Suggestion of superficial ulcerations the descending and sigmoid colon, this further supports the diagnosis of Crohn's disease. Report Dictated on Final Dictated: 08/11/2018 10:52 am Dictating Physician: MD ORDAZ SHARDUL Signed Date and Time: 08/11/2018 11:07 am Signed by: MD ORDAZ SHARDUL Transcribed Date and Time: 08/11/2018 10:52 ADD ON TEST FROM Collected: 08/11/2018 Status: F Source: [facility] 7:03 AM SYSTEM REPOSITORY TYPE CODE TESTS RESULT OUT OF REFERENCE UNITS RANGE LAB GUCCI NA Add Accepted on test from [facility] Result Comment: Specimen available & acceptable for analysis. Performed By: #### GUCCI #### [facility] [address] [place] [address] HEMOGRAM W/ AUTODIFF Collected: 08/11/2018 Status: F Source: [employer] 3:26 AM SYSTEM REPOSITORY TYPE CODE TESTS RESULT OUT OF REFERENCE UNITS RANGE LAB IWBC 3.6-10.7 10*3/uL WBC Normal 8.6 LAB RBC 4.40-5.90 10*6/uL Low RBC 4.22 LAB HGB 13.0-18.0 g/dL Hemoglobin Normal 13.2 LAB HCT 40.0-52.0 % Low Hematocrit 38.8 LAB MCV 80.0-98.0 fL MCV Normal 92.0 LAB MCH 26.0-34.0 pg MCH Normal 31.4 LAB MCHC 32.0-36.0 % MCHC Normal 34.1 LAB RDW 11.5-14.5 % RDW Normal 12.8 LAB PLT 140-440 10*3/uL Platelet Normal 389 LAB MPV 7.4-10.4 fL MPV Normal 7.8 LAB GRAN% 40.0-80.0 % Granulocytes Normal 69.6 LAB LYMP% 20.0-40.0 % Low Lymphocytes 19.6 LAB MONO% 2.0-10.0 % Monocytes Normal 7.3 LAB EOS% 1.0-6.0 % Eosinophils Normal 2.6 LAB BAS% 0.0-2.0 % Basophils Normal 0.9 LAB ANC 1.8-7.0 10*3/uL Abs Normal Neutrophile Cnt 6.0 LAB ALC 1.0-4.3 10*3/uL Abs Lymph Cnt Normal 1.7 LAB AMC 0.0-0.8 10*3/uL Abs Monocyte Normal Cnt 0.6 LAB AEC 0.0-0.5 10*3/uL Abs Eosin Cnt Normal 0.2 LAB ABC 0.0-0.2 10*3/uL Abs Baso Cnt Normal 0.1 Performed By: #### HEMDF, PHOS3, BMP3, TRIG3, LFT3, MG3 #### [employer] [address] [place] [address] PHOSPHORUS Collected: 08/11/2018 Status: F Source: [employer] 3:26 AM SYSTEM REPOSITORY TYPE CODE TESTS RESULT OUT OF RANGE REFERENCE UNITS LAB PHOS3 2.5-4.5 mg/dL Normal Phosphorus 4.2 Performed By: #### HEMDF, PHOS3, BMP3, TRIG3, LFT3, MG3 #### [employer] [address] [place] [address] BASIC METABOLIC PANEL Collected: 08/11/2018 Status: F Source: [employer] 3:26 AM SYSTEM REPOSITORY TYPE CODE TESTS RESULT OUT OF RANGE REFERENCE UNITS LAB NA3 137-145 mmol/L Sodium Normal 142 LAB K3 3.5-5.1 mmol/L Normal Potassium 3.7 LAB CL3 98-107 mmol/L Chloride Normal 107 LAB CO23 22-30 mmol/L Carbon Normal Dioxide 27 LAB ANIN3 NA Anion Gap 8 LAB GLUC3 70-100 mg/dL Glucose Normal 96 LAB BUN3 7-20 mg/dL Urea Normal Nitrogen 20 LAB CRET3 0.52-1.25 mg/dL Normal Creatinine 0.66 LAB GF3BR >60 mL/min eGFR > 60.0 LAB GF3WR >60 mL/min eGFR OTHER > 60.0 Result Comment: Source- MDRD equation with creatinine calibration to IDMS(NKDEP) eGFR not recommended for drug dose adjustment LAB CA3 8.4-10.4 mg/dL Normal Calcium 8.4 Performed By: #### HEMDF, PHOS3, BMP3, TRIG3, LFT3, MG3 #### [employer] [address] [place] [address] TRIGLYCERIDE Collected: 08/11/2018 Status: F Source: [employer] 3:26 AM SYSTEM REPOSITORY TYPE CODE TESTS RESULT OUT OF RANGE REFERENCE UNITS LAB 3TRIG <150 mg/dL Abnormal Triglyceride 173 Performed By: #### HEMDF, PHOS3, BMP3, TRIG3, LFT3, MG3 #### [employer] [address] [place] [address] HEPATIC FUNCTION Collected: 08/11/2018 Status: F Source: [employer] 3:26 AM SYSTEM REPOSITORY TYPE CODE TESTS RESULT OUT OF RANGE REFERENCE UNITS LAB ALB3 3.5-5.0 g/dL Albumin, Normal Serum 3.5 LAB TP3 6.3-8.2 g/dL Low Total Protein 5.8 LAB BILT3 0.2-1.3 mg/dL Normal Bilirubin,Total 0.4 LAB BILD3 0.0-0.3 mg/dL Normal Bilirubin,Direct 0.0 LAB ALKP3 38-126 U/L Alkaline Normal Phosphatase 89 LAB ALT3 13-69 U/L ALT (SGPT) Normal 68 LAB AST3 15-46 U/L AST (SGOT) Normal 36 Performed By: #### HEMDF, PHOS3, BMP3, TRIG3, LFT3, MG3 #### [employer] [address] [place] [phone] MAGNESIUM Collected: 08/11/2018 Status: F Source: [employer] 3:26 AM SYSTEM REPOSITORY TYPE CODE TESTS RESULT OUT OF RANGE REFERENCE UNITS LAB MG3 1.6-2.3 mg/dL Normal Magnesium 2.2 Performed By: #### HEMDF, PHOS3, BMP3, TRIG3, LFT3, MG3 #### [employer] [address] [place] [address] GLUCOSE,BEDSIDE Collected: 08/10/2018 Status: F Source: [employer] 12:39 PM SYSTEM REPOSITORY TYPE CODE TESTS RESULT OUT OF RANGE REFERENCE UNITS LAB BGLU 70-100 mg/dL Normal 91 Glucose,Beds saba Result Comment: Test performed by glucose meter. Results may be 10%-15% lower than serum/plasma values. (CLIA ID [id number]) Performed By: #### BGLU #### [employer] [address] [address] ADD ON TEST FROM Collected: 08/10/2018 Status: F Source: [employer] HIS 6:22 AM SYSTEM REPOSITORY TYPE CODE TESTS RESULT OUT OF REFERENCE UNITS RANGE LAB ADDON NA Add Accepted on test from HIS Result Comment: Specimen available & acceptable for analysis. Performed By: #### ADDON #### [employer] [address] [address] HEMOGRAM W/ AUTODIFF Collected: 08/10/2018 Status: F Source: [employer] 3:12 AM SYSTEM REPOSITORY TYPE CODE TESTS RESULT OUT OF REFERENCE UNITS RANGE LAB IWBC 3.6-10.7 10*3/uL WBC Normal 7.5 LAB RBC 4.40-5.90 10*6/uL Low RBC 4.23 LAB HGB 13.0-18.0 g/dL Hemoglobin Normal 13.3 LAB HCT 40.0-52.0 % Low Hematocrit 38.7 LAB MCV 80.0-98.0 fL MCV Normal 91.5 LAB MCH 26.0-34.0 pg MCH Normal 31.5 LAB MCHC 32.0-36.0 % MCHC Normal 34.4 LAB RDW 11.5-14.5 % RDW Normal 12.4 LAB PLT 140-440 10*3/uL Platelet Normal 383 LAB MPV 7.4-10.4 fL MPV Normal 7.9 LAB GRAN% 40.0-80.0 % Granulocytes Normal 60.7 LAB LYMP% 20.0-40.0 % Lymphocytes Normal 27.9 LAB MONO% 2.0-10.0 % Monocytes Normal 8.1 LAB EOS% 1.0-6.0 % Eosinophils Normal 2.5 LAB BAS% 0.0-2.0 % Basophils Normal 0.8 LAB ANC 1.8-7.0 10*3/uL Abs Normal Neutrophile Cnt 4.5 LAB ALC 1.0-4.3 10*3/uL Abs Lymph Cnt Normal 2.1 LAB AMC 0.0-0.8 10*3/uL Abs Monocyte Normal Cnt 0.6 LAB AEC 0.0-0.5 10*3/uL Abs Eosin Cnt Normal 0.2 LAB ABC 0.0-0.2 10*3/uL Abs Baso Cnt Normal 0.1 Performed By: #### HEMDF, PHOS3, BMP3, MG3 #### [employer] [address] [place] [phone] PHOSPHORUS Collected: 08/10/2018 Status: F Source: [employer] 3:11 AM SYSTEM REPOSITORY TYPE CODE TESTS RESULT OUT OF REFERENCE UNITS RANGE LAB PHOS3 2.5-4.5 mg/dL High Phosphorus 4.7 Performed By: #### HEMDF, PHOS3, BMP3, MG3 #### [employer] [address] [place] [phone] BASIC METABOLIC PANEL Collected: 08/10/2018 Status: F Source: [employer] 3:11 AM SYSTEM REPOSITORY TYPE CODE TESTS RESULT OUT OF RANGE REFERENCE UNITS LAB NA3 137-145 mmol/L Sodium Normal 142 LAB K3 3.5-5.1 mmol/L Low Potassium 3.2 LAB CL3 98-107 mmol/L Chloride Normal 107 LAB CO23 22-30 mmol/L Carbon Normal Dioxide 28 LAB ANIN3 NA Anion Gap 7 LAB GLUC3 70-100 mg/dL High Glucose 101 LAB BUN3 7-20 mg/dL Urea Normal Nitrogen 14 LAB CRET3 0.52-1.25 mg/dL Normal Creatinine 0.63 LAB GF3BR >60 mL/min eGFR > 60.0 LAB GF3WR >60 mL/min eGFR OTHER > 60.0 Result Comment: Source- MDRD equation with creatinine calibration to IDMS(NKDEP) eGFR not recommended for drug dose adjustment LAB CA3 8.4-10.4 mg/dL Normal Calcium 8.5 Performed By: #### HEMDF, PHOS3, BMP3, MG3 #### [employer] [address] [place] [phone] MAGNESIUM Collected: 08/10/2018 Status: F Source: [employer] 3:11 AM SYSTEM REPOSITORY TYPE CODE TESTS RESULT OUT OF RANGE REFERENCE UNITS LAB MG3 1.6-2.3 mg/dL Normal Magnesium 2.2 Performed By: #### HEMDF, PHOS3, BMP3, MG3 #### [employer] [address] [place] [phone] GLUCOSE,BEDSIDE Collected: 08/09/2018 Status: F Source: [employer] 12:09 PM SYSTEM REPOSITORY TYPE CODE TESTS RESULT OUT OF RANGE REFERENCE UNITS LAB BGLU 70-100 mg/dL Normal 97 Glucose,Beds saba Result Comment: Test performed by glucose meter. Results may be 10%-15% lower than serum/plasma values. (CLIA ID [id number]) Performed By: #### BGLU #### [employer] [address] [place] [phone] CR ABDOMEN AP Observed: 08/09/2018 Status: F Source: [employer] 10:00 AM SYSTEM REPOSITORY Patient Name: DINESH COA Diagnostic Radiology Exam Date/Time 08/09/2018 09:40:42 EST Exam CR Abdomen AP Ordering Physician Guanaco BHARDWAJ, ABHI BERNAL Accession Number [id number] CPT4 Codes 24953 () Reason For Exam ileus Report Examination: Supine abdomen Clinical Indication: Ileus, small bowel obstruction Comparison: 08/08/2018 Findings: Two supine views of the abdomen and pelvis. There is distention of small and large bowel loops slightly less pronounced within the small bowel which is up to 4.5 cm distended and more pronounced within the large bowel distended up to 7.2 cm. There is progression of contrast material from the small bowel to the large mitigating against complete obstruction. Finding likely represents ileus. Surgical clips right upper abdomen. No pathologic calcification is seen. Free air and air-fluid levels incompletely evaluated without upright or decubitus view. Degenerative changes within the spine and hips. 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 Surgical clips seen along the inguinal regions bilaterally. Impression: 1. Colonic ileus slightly improved with progression of contrast mitigating against complete obstruction. Report Dictated on Final Dictated: 08/09/2018 10:00 am Dictating Physician: MD RICARDO ANTHONY J Signed Date and Time: 08/09/2018 10:02 am Signed by: MD RICARDO ANTHONY J Transcribed Date and Time: 08/09/2018 10:00 HEMOGRAM W/ AUTODIFF Collected: 08/09/2018 Status: F [facility] REPOSITORY TYPE CODE TESTS RESULT OUT OF REFERENCE UNITS RANGE LAB IWBC 3.6-10.7 10*3/uL WBC High 11.1 LAB RBC 4.40-5.90 10*6/uL Low RBC 3.99 LAB HGB 13.0-18.0 g/dL Low Hemoglobin 12.4 LAB HCT 40.0-52.0 % Low Hematocrit 36.3 LAB MCV 80.0-98.0 fL MCV Normal 91.2 LAB MCH 26.0-34.0 pg MCH Normal 31.2 LAB MCHC 32.0-36.0 % MCHC Normal 34.2 LAB RDW 11.5-14.5 % RDW Normal 12.5 LAB PLT 140-440 10*3/uL Platelet Normal 363 LAB MPV 7.4-10.4 fL MPV Normal 7.9 LAB GRAN% 40.0-80.0 % Granulocytes Normal 79.1 LAB LYMP% 20.0-40.0 % Low Lymphocytes 14.6 LAB MONO% 2.0-10.0 % Monocytes Normal 5.2 LAB EOS% 1.0-6.0 % Low Eosinophils 0.3 LAB BAS% 0.0-2.0 % Basophils Normal 0.8 LAB ANC 1.8-7.0 10*3/uL Abs High Neutrophile Cnt 8.8 LAB ALC 1.0-4.3 10*3/uL Abs Lymph Cnt Normal 1.6 LAB AMC 0.0-0.8 10*3/uL Abs Monocyte Normal Cnt 0.6 LAB AEC 0.0-0.5 10*3/uL Abs Eosin Cnt Normal 0.0 LAB ABC 0.0-0.2 10*3/uL Abs Baso Cnt Normal 0.1 Performed By: #### HEMDF, PHOS3, BMP3, MG3, LFT3 #### [employer] [address] [place] [phone] PHOSPHORUS Collected: 08/09/2018 Status: F Source: [employer] 3:43 AM SYSTEM REPOSITORY TYPE CODE TESTS RESULT OUT OF RANGE REFERENCE UNITS LAB PHOS3 2.5-4.5 mg/dL Normal Phosphorus 4.0 Performed By: #### HEMDF, PHOS3, BMP3, MG3, LFT3 #### [employer] [address] [place] [phone] BASIC METABOLIC PANEL Collected: 08/09/2018 Status: F Source: [employer] 3:43 AM SYSTEM REPOSITORY TYPE CODE TESTS RESULT OUT OF RANGE REFERENCE UNITS LAB NA3 137-145 mmol/L Sodium Normal 143 LAB K3 3.5-5.1 mmol/L Low Potassium 3.1 LAB CL3 98-107 mmol/L High Chloride 108 LAB CO23 22-30 mmol/L Carbon Normal Dioxide 28 LAB ANIN3 NA Anion Gap 6 LAB GLUC3 70-100 mg/dL High Glucose 115 LAB BUN3 7-20 mg/dL Urea Normal Nitrogen 9 LAB CRET3 0.52-1.25 mg/dL Normal Creatinine 0.61 LAB GF3BR >60 mL/min eGFR > 60.0 LAB GF3WR >60 mL/min eGFR OTHER > 60.0 Result Comment: Source- MDRD equation with creatinine calibration to IDMS(NKDEP) eGFR not recommended for drug dose adjustment LAB CA3 8.4-10.4 mg/dL Normal Calcium 8.4 Performed By: #### HEMDF, PHOS3, BMP3, MG3, LFT3 #### [employer] [address] [place] [phone] MAGNESIUM Collected: 08/09/2018 Status: F Source: [employer] 3:43 AM SYSTEM REPOSITORY TYPE CODE TESTS RESULT OUT OF RANGE REFERENCE UNITS LAB MG3 1.6-2.3 mg/dL Normal Magnesium 2.0 Performed By: #### HEMDF, PHOS3, BMP3, MG3, LFT3 #### [employer] [address] [place] [phone] HEPATIC FUNCTION Collected: 08/09/2018 Status: F Source: [employer] 3:43 AM SYSTEM REPOSITORY TYPE CODE TESTS RESULT OUT OF RANGE REFERENCE UNITS LAB ALB3 3.5-5.0 g/dL Low Albumin, Serum 3.2 LAB TP3 6.3-8.2 g/dL Low Total Protein 5.5 LAB BILT3 0.2-1.3 mg/dL Normal Bilirubin,Total 0.4 LAB BILD3 0.0-0.3 mg/dL Normal Bilirubin,Direct 0.0 LAB ALKP3 38-126 U/L Alkaline Normal Phosphatase 78 LAB ALT3 13-69 U/L High ALT (SGPT) 71 LAB AST3 15-46 U/L High AST (SGOT) 58 Performed By: #### HEMDF, PHOS3, BMP3, MG3, LFT3 #### [employer] [facility] [address] [place] [address] GLUCOSE,BEDSIDE Collected: 08/09/2018 Status: F Source: [employer] 12:31 AM SYSTEM REPOSITORY TYPE CODE TESTS RESULT OUT OF RANGE REFERENCE UNITS LAB BGLU 70-100 mg/dL High 115 Glucose,Beds saba Result Comment: Test performed by glucose meter. Results may be 10%-15% lower than serum/plasma values. (CLIA ID [id number]) Performed By: #### BGLU #### [facility] [address] [address] CR CHEST PORTABLE Observed: 08/08/2018 Status: F Source: [employer] 6:16 PM SYSTEM REPOSITORY Patient Name: DINESH CAO Diagnostic Radiology Exam Date/Time 08/08/2018 17:18:23 EST Exam CR Chest Portable Ordering Physician AGUS KENNEDY Accession Number [id number] CPT4 Codes 43718 () Reason For Exam line placement Report Clinical Indications: Line placement Views: 1 Comparisons: none Heart: Size within normal limits. Mediastinum: Unremarkable. Left upper extremity PICC line is in position. The catheter tip is in the central right atrium. Lungs: No evidence of infiltrate, effusion or acute interstitial process. Osseous and soft tissue structures: Generally intact. Impression: No radiographic evidence of active cardiopulmonary process. Left upper extremity PICC line catheter tip is in the central right atrium. Report Dictated on Final Dictated: 08/08/2018 6:16 pm Dictating Physician: MD CRUZ RUSSELL Signed Date and Time: 08/08/2018 6:19 pm Signed by: MD CRUZ RUSSELL Transcribed Date and Time: 08/08/2018 6:16 GLUCOSE,BEDSIDE Collected: 08/08/2018 Status: F Source: [employer] 4:54 PM SYSTEM REPOSITORY TYPE CODE TESTS RESULT OUT OF RANGE REFERENCE UNITS LAB BGLU 70-100 mg/dL High 121 Glucose,Beds saba Result Comment: Test performed by glucose meter. Results may be 10%-15% lower than serum/plasma values. (CLIA ID [id number]) Performed By: #### BGLU #### [employer] [facility] [address] [place] [phone] CR ABDOMEN 2 VIEWS Observed: 08/08/2018 Status: F Source: [employer] 2:13 PM SYSTEM REPOSITORY Patient Name: DINESH CAO Diagnostic Radiology Exam Date/Time 08/08/2018 14:03:50 EST Exam CR Abdomen 2 Views Complete Ordering Physician AMBER HALE Accession Number [id number] CPT4 Codes 13561 () Reason For Exam pSBO Report HISTORY: Small bowel obstruction partial 4 views the abdomen compared to last exam yesterday FINDINGS: Continued moderate small bowel distention with air-fluid levels compatible with obstruction. There is residual contrast throughout the colon without distention. Prior cholecystectomy, prior surgery region GE junction Report Dictated on Final Dictated: 08/08/2018 2:13 pm Dictating Physician: MD SILVEIRA WILLIAM Signed Date and Time: 08/08/2018 2:16 pm Signed by: MD SILVEIRA WILLIAM Transcribed Date and Time: 08/08/2018 2:13 GLUCOSE,BEDSIDE Collected: 08/08/2018 Status: F Source: [employer] 12:19 PM SYSTEM REPOSITORY TYPE CODE TESTS RESULT OUT OF RANGE REFERENCE UNITS LAB BGLU 70-100 mg/dL High 118 Glucose,Beds saba Result Comment: Test performed by glucose meter. Results may be 10%-15% lower than serum/plasma values. (CLIA ID [id number]) Performed By: #### BGLU #### [employer] [address] [place] [phone] ADD ON TEST FROM Collected: 08/08/2018 Status: F Source: [employer] [facility] 7:16 AM SYSTEM REPOSITORY TYPE CODE TESTS RESULT OUT OF REFERENCE UNITS RANGE LAB ADDON NA Add Accepted on test from HIS Result Comment: Specimen available & acceptable for analysis. Performed By: #### ADDON #### [employer] [address] [place] [phone] HEMOGRAM W/ AUTODIFF Collected: 08/08/2018 Status: F Source: [employer] 4:27 AM SYSTEM REPOSITORY TYPE CODE TESTS RESULT OUT OF REFERENCE UNITS RANGE LAB IWBC 3.6-10.7 10*3/uL WBC Normal 9.0 LAB RBC 4.40-5.90 10*6/uL RBC Normal 4.45 LAB HGB 13.0-18.0 g/dL Hemoglobin Normal 14.1 LAB HCT 40.0-52.0 % Hematocrit Normal 40.6 LAB MCV 80.0-98.0 fL MCV Normal 91.2 LAB MCH 26.0-34.0 pg MCH Normal 31.7 LAB MCHC 32.0-36.0 % MCHC Normal 34.8 LAB RDW 11.5-14.5 % RDW Normal 12.1 LAB PLT 140-440 10*3/uL Platelet Normal 361 LAB MPV 7.4-10.4 fL MPV Normal 7.7 LAB GRAN% 40.0-80.0 % Granulocytes High 95.1 LAB LYMP% 20.0-40.0 % Low Lymphocytes 4.0 LAB MONO% 2.0-10.0 % Low Monocytes 0.6 LAB EOS% 1.0-6.0 % Low Eosinophils 0.0 LAB BAS% 0.0-2.0 % Basophils Normal 0.3 LAB ANC 1.8-7.0 10*3/uL Abs High Neutrophile Cnt 8.5 LAB ALC 1.0-4.3 10*3/uL Low Abs Lymph Cnt 0.4 LAB AMC 0.0-0.8 10*3/uL Abs Monocyte Normal Cnt 0.1 LAB AEC 0.0-0.5 10*3/uL Abs Eosin Cnt Normal 0.0 LAB ABC 0.0-0.2 10*3/uL Abs Baso Cnt Normal 0.0 Performed By: #### HEMDF, BMP3, MG3, PHOS3 #### [employer] [address] [place] [phone] BASIC METABOLIC PANEL Collected: 08/08/2018 Status: F Source: [employer] 4:27 AM SYSTEM REPOSITORY TYPE CODE TESTS RESULT OUT OF RANGE REFERENCE UNITS LAB NA3 137-145 mmol/L Sodium Normal 138 LAB K3 3.5-5.1 mmol/L Normal Potassium 4.1 LAB CL3 98-107 mmol/L Chloride Normal 107 LAB CO23 22-30 mmol/L Carbon Normal Dioxide 23 LAB ANIN3 NA Anion Gap 9 LAB GLUC3 70-100 mg/dL High Glucose 182 LAB BUN3 7-20 mg/dL Low Urea Nitrogen 5 LAB CRET3 0.52-1.25 mg/dL Normal Creatinine 0.60 LAB GF3BR >60 mL/min eGFR > 60.0 LAB GF3WR >60 mL/min eGFR OTHER > 60.0 Result Comment: Source- MDRD equation with creatinine calibration to IDMS(NKDEP) eGFR not recommended for drug dose adjustment LAB CA3 8.4-10.4 mg/dL Normal Calcium 8.7 Performed By: #### HEMDF, BMP3, MG3, PHOS3 #### [facility] [facility] [address] [place] [address] MAGNESIUM Collected: 08/08/2018 Status: F Source: [employer] 4:27 AM SYSTEM REPOSITORY TYPE CODE TESTS RESULT OUT OF RANGE REFERENCE UNITS LAB MG3 1.6-2.3 mg/dL Normal Magnesium 2.0 Performed By: #### HEMDF, BMP3, MG3, PHOS3 #### [employer] [facility] [address] [place] [address] PHOSPHORUS Collected: 08/08/2018 Status: F Source: [employer] 4:27 AM SYSTEM REPOSITORY TYPE CODE TESTS RESULT OUT OF RANGE REFERENCE UNITS LAB PHOS3 2.5-4.5 mg/dL Normal Phosphorus 3.4 Performed By: #### HEMDF, BMP3, MG3, PHOS3 #### [employer] [address] [place] [phone] Observed: 08/07/2018 Status: F Source: [employer] CULTURE AND STAIN - 5:51 PM SYSTEM REPOSITORY FLUID Order Comment: Specimen collected in [facility].R. CULTURE & STAIN - FLUID --> Status: F No growth at 3 days. STAIN GRAM --> Status: F Moderate polymorphonuclear cells/lpf. No organisms seen. No organisms seen. Performed By: #### CXFLD, C/BROOKE #### [employer] [facility] [address] [place] [address] Observed: 08/07/2018 Status: F Source: [employer] CULTURE ANAEROBE 5:51 PM SYSTEM REPOSITORY Order Comment: Specimen collected in O.R. CULTURE ANAEROBE --> Status: F No growth of anaerobes at 5 days. Performed By: #### CXFLD, C/BROOKE #### [facility] [place] [address] CR ABDOMEN 2 VIEWS Observed: 08/07/2018 Status: F Source: [employer] 8:07 AM SYSTEM REPOSITORY Patient Name: DINESH CAO Diagnostic Radiology Exam Date/Time 08/07/2018 07:52:36 EST Exam CR Abdomen 2 Views Complete Ordering Physician DO ALEXIS TAHIRAH A Accession Number [id number] CPT4 Codes 63985 () Reason For Exam pSBO Report Abdomen: 08/07/2018 . Clinical Information: Abdominal pain . Findings: Supine and decubitus views of the abdomen were compared to the prior day's study. There is residual contrast in the colon, slightly less pronounced than the prior day. There are dilated loops of small bowel centrally with some colonic gas. The findings are consistent with at least a partial small bowel obstruction. No free air is identified beneath the diaphragm. The nasogastric tube is not currently identified and may have been removed. Report Dictated on Final Dictated: 08/07/2018 8:07 am Dictating Physician: MD BENTLEY RISA Signed Date and Time: 08/07/2018 8:08 am Signed by: MD BENTLEY RISA Transcribed Date and Time: 08/07/2018 8:07 HEMOGRAM W/ AUTODIFF Collected: 08/07/2018 Status: F Source: [employer] 3:23 AM SYSTEM REPOSITORY TYPE CODE TESTS RESULT OUT OF REFERENCE UNITS RANGE LAB IWBC 3.6-10.7 10*3/uL WBC Normal 10.4 LAB RBC 4.40-5.90 10*6/uL Low RBC 4.03 LAB HGB 13.0-18.0 g/dL Hemoglobin Normal 13.0 LAB HCT 40.0-52.0 % Low Hematocrit 37.1 LAB MCV 80.0-98.0 fL MCV Normal 92.2 LAB MCH 26.0-34.0 pg MCH Normal 32.4 LAB MCHC 32.0-36.0 % MCHC Normal 35.1 LAB RDW 11.5-14.5 % RDW Normal 12.3 LAB PLT 140-440 10*3/uL Platelet Normal 340 LAB MPV 7.4-10.4 fL MPV Normal 7.4 LAB GRAN% 40.0-80.0 % Granulocytes High 83.7 LAB LYMP% 20.0-40.0 % Low Lymphocytes 8.7 LAB MONO% 2.0-10.0 % Monocytes Normal 5.6 LAB EOS% 1.0-6.0 % Eosinophils Normal 1.6 LAB BAS% 0.0-2.0 % Basophils Normal 0.4 LAB ANC 1.8-7.0 10*3/uL Abs High Neutrophile Cnt 8.7 LAB ALC 1.0-4.3 10*3/uL Low Abs Lymph Cnt 0.9 LAB AMC 0.0-0.8 10*3/uL Abs Monocyte Normal Cnt 0.6 LAB AEC 0.0-0.5 10*3/uL Abs Eosin Cnt Normal 0.2 LAB ABC 0.0-0.2 10*3/uL Abs Baso Cnt Normal 0.0 Performed By: #### HEMCORAL, BMP3 #### [facility] [facility] [address] [place] [phone] BASIC METABOLIC PANEL Collected: 08/07/2018 Status: F Source: [employer] 3:23 AM SYSTEM REPOSITORY TYPE CODE TESTS RESULT OUT OF RANGE REFERENCE UNITS LAB NA3 137-145 mmol/L Sodium Normal 139 LAB K3 3.5-5.1 mmol/L Low Potassium 3.3 LAB CL3 98-107 mmol/L High Chloride 110 LAB CO23 22-30 mmol/L Low Carbon Dioxide 20 LAB ANIN3 NA Anion Gap 10 LAB GLUC3 70-100 mg/dL Glucose Normal 73 LAB BUN3 7-20 mg/dL Low Urea Nitrogen 5 LAB CRET3 0.52-1.25 mg/dL Normal Creatinine 0.57 LAB GF3BR >60 mL/min eGFR > 60.0 LAB GF3WR >60 mL/min eGFR OTHER > 60.0 Result Comment: Source- MDRD equation with creatinine calibration to IDMS(NKDEP) eGFR not recommended for drug dose adjustment LAB CA3 8.4-10.4 mg/dL Low Calcium 8.3 Performed By: #### HEMCORAL, BMP3 #### [employer] [address] [address] CR ABDOMEN 2 VIEWS Observed: 08/06/2018 Status: F Source: [employer] 8:54 AM SYSTEM REPOSITORY Patient Name: DINESH CAO Diagnostic Radiology Exam Date/Time 08/06/2018 08:52:46 EST Exam CR Abdomen 2 Views Complete Ordering Physician DO ALEXIS TAHIRAH A Accession Number [id number] CPT4 Codes 03987 () Reason For Exam pSBO Report Abdomen: 08/06/2018 . Clinical Information: Abdominal pain . Findings: Supine and decubitus views of the abdomen were compared to the prior day's study. The nasogastric tube is unchanged. Air continues to be residual contrast throughout the colon. This has progressed distally from small bowel when compared to the prior day. There is however continued dilated loops of small bowel centrally and there may be at least a partial obstruction. No free air is identified beneath the diaphragm. Report Dictated on Final Dictated: 08/06/2018 8:54 am Dictating Physician: MD BENTLEY RISA Signed Date and Time: 08/06/2018 8:54 am Signed by: MD BENTLEY RISA Transcribed Date and Time: 08/06/2018 8:54 HEMOGRAM W/ AUTODIFF Collected: 08/06/2018 Status: F Source: [employer] 5:24 AM SYSTEM REPOSITORY TYPE CODE TESTS RESULT OUT OF REFERENCE UNITS RANGE LAB IWBC 3.6-10.7 10*3/uL WBC Normal 8.0 LAB RBC 4.40-5.90 10*6/uL Low RBC 4.29 LAB HGB 13.0-18.0 g/dL Hemoglobin Normal 13.4 LAB HCT 40.0-52.0 % Low Hematocrit 39.8 LAB MCV 80.0-98.0 fL MCV Normal 92.8 LAB MCH 26.0-34.0 pg MCH Normal 31.3 LAB MCHC 32.0-36.0 % MCHC Normal 33.8 LAB RDW 11.5-14.5 % RDW Normal 12.2 LAB PLT 140-440 10*3/uL Platelet Normal 362 LAB MPV 7.4-10.4 fL MPV Normal 7.7 LAB GRAN% 40.0-80.0 % Granulocytes Normal 77.2 LAB LYMP% 20.0-40.0 % Low Lymphocytes 14.6 LAB MONO% 2.0-10.0 % Monocytes Normal 5.7 LAB EOS% 1.0-6.0 % Eosinophils Normal 1.7 LAB BAS% 0.0-2.0 % Basophils Normal 0.8 LAB ANC 1.8-7.0 10*3/uL Abs Normal Neutrophile Cnt 6.2 LAB ALC 1.0-4.3 10*3/uL Abs Lymph Cnt Normal 1.2 LAB AMC 0.0-0.8 10*3/uL Abs Monocyte Normal Cnt 0.5 LAB AEC 0.0-0.5 10*3/uL Abs Eosin Cnt Normal 0.1 LAB ABC 0.0-0.2 10*3/uL Abs Baso Cnt Normal 0.1 Performed By: #### MEGAN [id number] #### [facility] [employer] [address] [id number] BASIC METABOLIC PANEL Collected: 08/06/2018 Status: F Source: [employer] 5:24 AM SYSTEM REPOSITORY TYPE CODE TESTS RESULT OUT OF RANGE REFERENCE UNITS LAB NA3 137-145 mmol/L Normal Sodium 141 LAB K3 3.5-5.1 mmol/L Normal Potassium 3.7 Result Comment: Slightly hemolysed, interpret with caution. LAB CL3 98-107 mmol/L High Chloride 110 LAB CO23 22-30 mmol/L Low Carbon Dioxide 20 LAB ANIN3 NA Anion Gap 11 LAB GLUC3 70-100 mg/dL Low Glucose 54 LAB BUN3 7-20 mg/dL Normal Urea Nitrogen 8 LAB CRET3 0.52-1.25 mg/dL Normal Creatinine 0.60 LAB GF3BR >60 mL/min eGFR > 60.0 LAB GF3WR >60 mL/min eGFR OTHER > 60.0 Result Comment: Source- MDRD equation with creatinine calibration to IDMS(NKDEP) eGFR not recommended for drug dose adjustment LAB CA3 8.4-10.4 mg/dL Normal Calcium 8.4 Performed By: #### SOTERO GUZMAN3 #### [facility] [employer] [address] [address] 12 LEAD ELECTROCARDIOGRAM Observed: 08/05/2018 Status: F Source: [place] 3:35 PM [facility] Cardi[facility] Services [address] [place] [address] 12 Lead EKG 07/31/18 1501 MR#: [id number] Acct: [id number] Name: DINESH CAO Rep #: [id number] : 1960 58 From: Bernardino Armstrong MD Attending Dr: Status: DEP ER Ordering Dr: Campbell Aguilar MD Date: 07/31/18 Location: ED Sex: M C Admitted: Test Reason : DYSRHYTHMIA Blood Pressure : / mmHG Vent. Rate : 072 BPM Atrial Rate : 072 BPM P-R Int : 134 ms QRS Dur : 084 ms QT Int : 382 ms P-R-T Axes : 032 002 073 degrees QTc Int : 418 ms Normal sinus rhythm Confirmed by TORSTEN HOANG, BERNARDINO ([id number]), marketing editor SONAM SALAZAR ([id number]) on 08/05/2018 3:35:06 PM Referred By: ELISSA Confirmed By:BERNARDINO ARMSTRONG MD 08/05/18 1535 Date Bernardino Armstrong MD CC: Jeannette Mosqueda III, MD; Campbell Aguilar MD Signed CR ABDOMEN 2 VIEWS Observed: 08/05/2018 Status: F Source: [employer] 10:06 AM SYSTEM REPOSITORY Patient Name: DINESH CAO Diagnostic Radiology Exam Date/Time 08/05/2018 08:32:50 EST Exam CR Abdomen 2 Views Complete Ordering Physician DO ALEXIS TAHIRAH A Accession Number [id number] CPT4 Codes 93456 () Reason For Exam pSBO Report Clinical Information: Abdominal distention. Partial small bowel obstruction. Abdomen, two views: AP supine and lateral decubitus views of the abdomen are compared to the examination of earlier the same day at approximately 0537 hours . The endogastric tube has progressed into the distal stomach. There are multiple mildly dilated gas containing loops of mid abdominal small bowel similar to prior examination. Residual barium is again identified in the left-sided and upper pelvic small bowel loops and the right and left colon also similar. No free gas or air-fluid levels are identified. No other changes. Impression: 1. Progression of the endotracheal tube in the distal stomach. 2. Findings consistent with partial small bowel obstruction similar to earlier examination. Report Dictated on Final Dictated: 08/05/2018 10:06 am Dictating Physician: MD WILSON HARLAN Signed Date and Time: 08/05/2018 10:12 am Signed by: MD WILSON HARLAN Transcribed Date and Time: 08/05/2018 10:06 CR ABDOMEN AP Observed: 08/05/2018 Status: F Source: [employer] 7:31 AM SYSTEM REPOSITORY Patient Name: DINESH CAO Diagnostic Radiology Exam Date/Time 08/05/2018 05:49:46 EST Exam CR Abdomen AP Ordering Physician DO ALEXIS TAHIRAH A Accession Number [id number] CPT4 Codes 03721 () Reason For Exam verify NG replacement Report EXAM TYPE: CR Abdomen AP EXAM DATE AND TIME: 08/05/2018 5:49 AM EST INDICATION: 58 years Male with obstruction, enteric tube placement COMPARISON: 08/04/2018 TECHNIQUE: AP supine radiograph of the abdomen and pelvis was obtained. FINDINGS: There has been placement of an enteric tube, which terminates overlying the gastric antrum/proximal duodenum. There is redemonstration of multiple dilated small bowel loops. Residual intraluminal contrast is seen throughout the small bowel as well as within the colon. Limited evaluation for free air or air-fluid levels on supine-only imaging. No abnormal soft tissue calcifications are seen. Degenerative changes are seen in the visualized spine. The visualized lung bases are unremarkable. IMPRESSION: 1. Enteric tube terminates overlying the gastric antrum/proximal duodenum. 2. Dilated small bowel related to known obstruction. 3. Residual intraluminal contrast in the small bowel and colon. Report Dictated on Final Dictated: 08/05/2018 7:31 am Dictating Physician: MD LLANES NICHOLAS Signed Date and Time: 08/05/2018 7:32 am Signed by: MD LLANES NICHOLAS Transcribed Date and Time: 08/05/2018 7:31 HEMOGRAM W/ AUTODIFF Collected: 08/05/2018 Status: F Source: [employer] 5:07 AM SYSTEM REPOSITORY TYPE CODE TESTS RESULT OUT OF REFERENCE UNITS RANGE LAB IWBC 3.6-10.7 10*3/uL WBC Normal 5.5 LAB RBC 4.40-5.90 10*6/uL RBC Normal 4.71 LAB HGB 13.0-18.0 g/dL Hemoglobin Normal 15.0 LAB HCT 40.0-52.0 % Hematocrit Normal 44.8 LAB MCV 80.0-98.0 fL MCV Normal 95.2 LAB MCH 26.0-34.0 pg MCH Normal 31.8 LAB MCHC 32.0-36.0 % MCHC Normal 33.4 LAB RDW 11.5-14.5 % RDW Normal 12.7 LAB PLT 140-440 10*3/uL Platelet Normal 298 LAB MPV 7.4-10.4 fL MPV Normal 7.7 LAB GRAN% 40.0-80.0 % Granulocytes Normal 68.3 LAB LYMP% 20.0-40.0 % Low Lymphocytes 18.9 LAB MONO% 2.0-10.0 % Monocytes Normal 9.2 LAB EOS% 1.0-6.0 % Eosinophils Normal 2.7 LAB BAS% 0.0-2.0 % Basophils Normal 0.9 LAB ANC 1.8-7.0 10*3/uL Abs Normal Neutrophile Cnt 3.7 LAB ALC 1.0-4.3 10*3/uL Abs Lymph Cnt Normal 1.0 LAB AMC 0.0-0.8 10*3/uL Abs Monocyte Normal Cnt 0.5 LAB AEC 0.0-0.5 10*3/uL Abs Eosin Cnt Normal 0.1 LAB ABC 0.0-0.2 10*3/uL Abs Baso Cnt Normal 0.0 Performed By: #### HEMDF, BMP3 #### [employer] [address] [place] [phone] BASIC METABOLIC PANEL Collected: 08/05/2018 Status: F Source: [employer] 5:07 AM SYSTEM REPOSITORY TYPE CODE TESTS RESULT OUT OF RANGE REFERENCE UNITS LAB NA3 137-145 mmol/L Sodium Normal 142 LAB K3 3.5-5.1 mmol/L Normal Potassium 3.6 LAB CL3 98-107 mmol/L Chloride Normal 107 LAB CO23 22-30 mmol/L Carbon Normal Dioxide 23 LAB ANIN3 NA Anion Gap 11 LAB GLUC3 70-100 mg/dL Low Glucose 60 LAB BUN3 7-20 mg/dL Urea Normal Nitrogen 12 LAB CRET3 0.52-1.25 mg/dL Normal Creatinine 0.61 LAB GF3BR >60 mL/min eGFR > 60.0 LAB GF3WR >60 mL/min eGFR OTHER > 60.0 Result Comment: Source- MDRD equation with creatinine calibration to IDMS(NKDEP) eGFR not recommended for drug dose adjustment LAB CA3 8.4-10.4 mg/dL Normal Calcium 8.8 Performed By: #### HEMDF, BMP3 #### [employer] [address] [place] [phone] CR ABDOMEN 2 VIEWS Observed: 08/04/2018 Status: F Source: [employer] 2:46 PM SYSTEM REPOSITORY Patient Name: DINESH CAO Diagnostic Radiology Exam Date/Time 08/04/2018 08:50:41 EST Exam CR Abdomen 2 Views Complete Ordering Physician DO ALEXIS TAHIRAH A Accession Number [id number] CPT4 Codes 92603 () Reason For Exam pSBO Report Abdomen, with lateral decubitus images(s): INDICATION: Partial small bowel obstruction, abdominal distention. COMPARISON: None. Left lateral decubitus and supine images of the abdomen were obtained. There is distention of multiple loops of small bowel with air-fluid levels on lateral decubitus view. This pattern of distention is likely secondary to ileus. There is no evidence of pneumoperitoneum. No abnormal calcifications are identified. There is no appreciable mass effect. Review of the osseous structures demonstrate no gross abnormality. No acute cardiopulmonary process is identified. IMPRESSION: Small bowel ileus versus partial small bowel obstruction. Report Dictated on Final Dictated: 08/04/2018 2:46 pm Dictating Physician: DO MADSEN ALFRED Signed Date and Time: 08/04/2018 2:47 pm Signed by: DO MADSEN ALFRED Transcribed Date and Time: 08/04/2018 2:46 HEMOGRAM W/ AUTODIFF Collected: 08/04/2018 Status: F Source: [employer] 5:40 AM SYSTEM REPOSITORY TYPE CODE TESTS RESULT OUT OF REFERENCE UNITS RANGE LAB IWBC 3.6-10.7 10*3/uL WBC Normal 5.8 LAB RBC 4.40-5.90 10*6/uL RBC Normal 4.79 LAB HGB 13.0-18.0 g/dL Hemoglobin Normal 15.2 LAB HCT 40.0-52.0 % Hematocrit Normal 45.0 LAB MCV 80.0-98.0 fL MCV Normal 93.9 LAB MCH 26.0-34.0 pg MCH Normal 31.8 LAB MCHC 32.0-36.0 % MCHC Normal 33.9 LAB RDW 11.5-14.5 % RDW Normal 12.4 LAB PLT 140-440 10*3/uL Platelet Normal 328 LAB MPV 7.4-10.4 fL Low MPV 7.2 LAB GRAN% 40.0-80.0 % Granulocytes Normal 67.5 LAB LYMP% 20.0-40.0 % Low Lymphocytes 16.9 LAB MONO% 2.0-10.0 % Monocytes High 12.6 LAB EOS% 1.0-6.0 % Eosinophils Normal 2.2 LAB BAS% 0.0-2.0 % Basophils Normal 0.8 LAB ANC 1.8-7.0 10*3/uL Abs Normal Neutrophile Cnt 3.9 LAB ALC 1.0-4.3 10*3/uL Abs Lymph Cnt Normal 1.0 LAB AMC 0.0-0.8 10*3/uL Abs Monocyte Normal Cnt 0.7 LAB AEC 0.0-0.5 10*3/uL Abs Eosin Cnt Normal 0.1 LAB ABC 0.0-0.2 10*3/uL Abs Baso Cnt Normal 0.0 Performed By: #### HEMDF, BMP3, CRP2 #### [employer] [address] [place] [phone] BASIC METABOLIC PANEL Collected: 08/04/2018 Status: F Source: [employer] 5:40 AM SYSTEM REPOSITORY TYPE CODE TESTS RESULT OUT OF RANGE REFERENCE UNITS LAB NA3 137-145 mmol/L Sodium Normal 141 LAB K3 3.5-5.1 mmol/L Normal Potassium 4.2 LAB CL3 98-107 mmol/L Chloride Normal 107 LAB CO23 22-30 mmol/L Carbon Normal Dioxide 25 LAB ANIN3 NA Anion Gap 10 LAB GLUC3 70-100 mg/dL Glucose Normal 78 LAB BUN3 7-20 mg/dL Urea Normal Nitrogen 15 LAB CRET3 0.52-1.25 mg/dL Normal Creatinine 0.67 LAB GF3BR >60 mL/min eGFR > 60.0 LAB GF3WR >60 mL/min eGFR OTHER > 60.0 Result Comment: Source- MDRD equation with creatinine calibration to IDMS(NKDEP) eGFR not recommended for drug dose adjustment LAB CA3 8.4-10.4 mg/dL Normal Calcium 9.2 Performed By: #### HEMDF, BMP3, CRP2 #### [employer] [address] [place] [address] C-REACTIVE PROTEIN Collected: 08/04/2018 Status: F Source: [employer] 5:40 AM SYSTEM REPOSITORY TYPE CODE TESTS RESULT OUT OF REFERENCE UNITS RANGE LAB 2CRP 0.0-6.0 mg/L High C-Reactive 54.9 Protein Result Comment: . Performed By: #### HEMDF, BMP3, CRP2 #### [employer] [address] [place] [address] MRI ABDOMEN W/ + W/O Observed: 08/03/2018 Status: F Source: [employer] CONTRAST 5:07 PM SYSTEM REPOSITORY Patient Name: DINESH CAO MRI Exam Date/Time 08/03/2018 10:24:49 EST Exam MRI Abdomen w/ + w/o Contrast Ordering Physician Guanaco BHARDWAJ JUSTUS VARGHESE Accession Number [id number] CPT4 Codes 40763 () Reason For Exam distal ileitis, possible crohn's, r/o fistula/stricture Report MRI ABDOMEN WITHOUT AND WITH CONTRAST INCLUDING SMALL BOWEL MR ENTEROGRAPHY: CLINICAL INDICATION: Distal ileitis, possible Crohn's disease TECHNIQUE: Following a fast of six hours, the patient ingested three 450 mL bottles of Volumen oral contrast. MRI sequences were performed including transaxial T2 fat suppression and coronal T2 fat suppression along with diffusion-weighted sequences through the abdomen and pelvis. Following administration of 20mL gadolinium contrast, coronal multiphase dynamic T1 and transaxial T1 fat suppression sequences were performed through the abdomen and pelvis as well COMPARISON: Small bowel series from 08/01/2018, CT from an outside hospital dated 07/31/2018 FINDINGS: Bowel findings: There is an approximately 20 to 25 cm long segment of the terminal ileum which demonstrates mural thickening and submucosal edema as well as restricted diffusion and abnormal enhancement. There is a small amount of adjacent free fluid which measures approximately 3.4 x 1.5 cm (series 10, image nine). However, this does not appear well loculated, and does not have an enhancing rim on the postcontrast images. No definite evidence of a fistula. No mesenteric hypervascularity. Proximal to the aforementioned terminal ileum, the small bowel is diffusely dilated up to 2 cm in diameter. The appendix cannot be well identified. Limited evaluation of the large bowel due to the presence of fecal material, however the large bowel is grossly unremarkable, without evidence of pericolonic stranding. Liver: Normal size and contour. No focal lesion. Biliary tree: Surgically absent gallbladder. No biliary dilatation. Spleen: Normal Adrenals:Normal Pancreas: Homogeneous enhancement without mass or peripancreatic fluid. Kidneys: Symmetric contrast enhancement without mass or hydronephrosis Lymphadenopathy: None Aorta: Normal caliber Pelvis:No mass identified. A moderate amount of free pelvic fluid is present. Visualized Osseous structures: Normal IMPRESSION: 1. There is a long segment of terminal ileum which demonstrates mural thickening, submucosal edema, restricted diffusion and abnormal enhancement. Findings are concerning for ileitis, which could be infectious or inflammatory etiology, including Crohn's disease. Note however that there is no lymphadenopathy or mesenteric hypervascularity which could typically be seen in acute Crohn's disease. Consider endoscopy. 2. The above inflammatory changes results in stenosis with small bowel obstruction. 3. Nonloculated fluid in the mid lower abdomen, new from the prior study. Moderate amount of free pelvic fluid. Report Dictated on Final Dictated: 08/03/2018 5:07 pm Dictating Physician: MD LLANES NICHOLAS Signed Date and Time: 08/03/2018 5:29 pm Signed by: MD LLANES NICHOLAS Transcribed Date and Time: 08/03/2018 5:07 HEMOGRAM W/ AUTODIFF Collected: 08/03/2018 Status: F Source: [employer] 5:08 AM SYSTEM REPOSITORY TYPE CODE TESTS RESULT OUT OF REFERENCE UNITS RANGE LAB IWBC 3.6-10.7 10*3/uL WBC Normal 8.1 LAB RBC 4.40-5.90 10*6/uL RBC Normal 5.14 LAB HGB 13.0-18.0 g/dL Hemoglobin Normal 16.4 LAB HCT 40.0-52.0 % Hematocrit Normal 48.5 LAB MCV 80.0-98.0 fL MCV Normal 94.3 LAB MCH 26.0-34.0 pg MCH Normal 32.0 LAB MCHC 32.0-36.0 % MCHC Normal 33.9 LAB RDW 11.5-14.5 % RDW Normal 12.6 LAB PLT 140-440 10*3/uL Platelet Normal 321 LAB MPV 7.4-10.4 fL Low MPV 7.2 LAB GRAN% 40.0-80.0 % Granulocytes Normal 74.7 LAB LYMP% 20.0-40.0 % Low Lymphocytes 11.6 LAB MONO% 2.0-10.0 % Monocytes High 11.7 LAB EOS% 1.0-6.0 % Eosinophils Normal 1.4 LAB BAS% 0.0-2.0 % Basophils Normal 0.6 LAB ANC 1.8-7.0 10*3/uL Abs Normal Neutrophile Cnt 6.0 LAB ALC 1.0-4.3 10*3/uL Low Abs Lymph Cnt 0.9 LAB AMC 0.0-0.8 10*3/uL Abs Monocyte High Cnt 0.9 LAB AEC 0.0-0.5 10*3/uL Abs Eosin Cnt Normal 0.1 LAB ABC 0.0-0.2 10*3/uL Abs Baso Cnt Normal 0.0 Performed By: #### HEMCORAL BMP3 #### [employer] [address] [place] [phone] BASIC METABOLIC PANEL Collected: 08/03/2018 Status: F Source: [employer] 5:08 AM SYSTEM REPOSITORY TYPE CODE TESTS RESULT OUT OF RANGE REFERENCE UNITS LAB NA3 137-145 mmol/L Sodium Normal 142 LAB K3 3.5-5.1 mmol/L Normal Potassium 4.1 LAB CL3 98-107 mmol/L Chloride Normal 107 LAB CO23 22-30 mmol/L Carbon Normal Dioxide 24 LAB ANIN3 NA Anion Gap 10 LAB GLUC3 70-100 mg/dL Glucose Normal 77 LAB BUN3 7-20 mg/dL Urea Normal Nitrogen 18 LAB CRET3 0.52-1.25 mg/dL Normal Creatinine 0.76 LAB GF3BR >60 mL/min eGFR > 60.0 LAB GF3WR >60 mL/min eGFR OTHER > 60.0 Result Comment: Source- MDRD equation with creatinine calibration to IDMS(NKDEP) eGFR not recommended for drug dose adjustment LAB CA3 8.4-10.4 mg/dL Normal Calcium 8.9 Performed By: #### HEMDF BMP3 #### [facility] [facility] [address] [place] [phone] CR CHEST PA/LAT Observed: 08/02/2018 Status: F Source: [employer] 8:44 PM SYSTEM REPOSITORY Patient Name: DINESH CAO Diagnostic Radiology Exam Date/Time 08/02/2018 20:28:20 EST Exam CR Chest PA/LAT Ordering Physician LARA LAKHANI DO, CHARLES R Accession Number [id number] CPT4 Codes 66340 () Reason For Exam right basilar rales Report CHEST: CLINICAL INDICATION: Abnormal breath sounds on the right TECHNIQUE: PA and Lateral COMPARISON: 10/06/2008 FINDINGS: Exam quality: The study is limited due to a poor inspiratory effort. The heart and mediastinum are normal. Atelectasis is noted on the lateral view at the base of the chest, probably in the right lower lobe. There is no other consolidation. Nasogastric tube is noted with its tip in the region of the stomach. There is no evidence for pleural effusion. Minor degenerative change of the thoracic spine is noted. IMPRESSION: Atelectasis probably at the right lung base as noted on the lateral view. Report Dictated on Final Dictated: 08/02/2018 8:44 pm Dictating Physician: MD BHATT JEFFREY Signed Date and Time: 08/02/2018 8:46 pm Signed by: MD BHATT JEFFREY Transcribed Date and Time: 08/02/2018 8:44 RF SMALL BOWEL W/ Observed: 08/02/2018 Status: F Source: [employer] 9:10 AM SYSTEM REPOSITORY Patient Name: DINESH CAO Fluoroscopy Exam Date/Time 08/01/2018 08:14:39 EST Exam RF Small Bowel w/ Serial Films Ordering Physician Guanaco BHARDWAJ JUSTUS VARGHESE Accession Number [id number] CTP4 Codes 37254 () Reason For Exam pSBO Report SMALL BOWEL SERIES: Indication: Small bowel obstruction. Status post esophageal repair. Examination: Small bowel series was performed following ingestion of barium. Fluoroscopy time: None. Comparison: None. Findings: Staff Therapist supine radiograph of the abdomen demonstrates mild distention of small bowel loops. NG tube tip overlies proximal duodenum. No abnormal soft tissue calcifications are noted. Thoracolumbar degenerative spondylosis. Right upper quadrant cholecystectomy clips. Exam was terminated at 9.5 hours. There is delayed transit time through the small bowel. There is mild symmetric distention of proximal small bowel loops. Distal small bowel loops did not opacify with oral contrast. No small bowel mucosal lesion is evident. The colon did not opacify with contrast. IMPRESSION: Mild diffuse distention of small bowel with delayed transit time suggestive of small bowel obstruction. Study was terminated at 9.5 hours. Follow-up abdominal imaging is suggested. Report Dictated on Final Dictated: 08/02/2018 9:10 am Dictating Physician: HAYLEE CORBIN DO, I Signed Date and Time: 08/02/2018 9:14 am Signed by: HAYLEE CORBIN DO, I Transcribed Date and Time: 08/02/2018 9:10 HEMOGRAM W/ AUTODIFF Collected: 08/02/2018 Status: F Source: [employer] 6:20 AM SYSTEM REPOSITORY TYPE CODE TESTS RESULT OUT OF REFERENCE UNITS RANGE LAB IWBC 3.6-10.7 10*3/uL WBC High 11.2 LAB RBC 4.40-5.90 10*6/uL RBC Normal 4.99 LAB HGB 13.0-18.0 g/dL Hemoglobin Normal 15.7 LAB HCT 40.0-52.0 % Hematocrit Normal 46.8 LAB MCV 80.0-98.0 fL MCV Normal 93.8 LAB MCH 26.0-34.0 pg MCH Normal 31.4 LAB MCHC 32.0-36.0 % MCHC Normal 33.5 LAB RDW 11.5-14.5 % RDW Normal 12.9 LAB PLT 140-440 10*3/uL Platelet Normal 352 LAB MPV 7.4-10.4 fL Low MPV 7.1 LAB GRAN% 40.0-80.0 % Granulocytes High 80.5 LAB LYMP% 20.0-40.0 % Low Lymphocytes 8.8 LAB MONO% 2.0-10.0 % Monocytes Normal 9.4 LAB EOS% 1.0-6.0 % Low Eosinophils 0.9 LAB BAS% 0.0-2.0 % Basophils Normal 0.4 LAB ANC 1.8-7.0 10*3/uL Abs High Neutrophile Cnt 9.0 LAB ALC 1.0-4.3 10*3/uL Abs Lymph Cnt Normal 1.0 LAB AMC 0.0-0.8 10*3/uL Abs Monocyte High Cnt 1.1 LAB AEC 0.0-0.5 10*3/uL Abs Eosin Cnt Normal 0.1 LAB ABC 0.0-0.2 10*3/uL Abs Baso Cnt Normal 0.0 Performed By: #### HEMCORAL BMP3 #### [facility] [facility] [address] [place] [phone] BASIC METABOLIC PANEL Collected: 08/02/2018 Status: F Source: [employer] 6:20 AM SYSTEM REPOSITORY TYPE CODE TESTS RESULT OUT OF RANGE REFERENCE UNITS LAB NA3 137-145 mmol/L Sodium Normal 140 LAB K3 3.5-5.1 mmol/L Normal Potassium 4.6 LAB CL3 98-107 mmol/L Chloride Normal 102 LAB CO23 22-30 mmol/L Carbon Normal Dioxide 30 LAB ANIN3 NA Anion Gap 8 LAB GLUC3 70-100 mg/dL Glucose Normal 100 LAB BUN3 7-20 mg/dL High Urea Nitrogen 23 LAB CRET3 0.52-1.25 mg/dL Normal Creatinine 1.00 LAB GF3BR >60 mL/min eGFR > 60.0 LAB GF3WR >60 mL/min eGFR OTHER > 60.0 Result Comment: Source- MDRD equation with creatinine calibration to IDMS(NKDEP) eGFR not recommended for drug dose adjustment LAB CA3 8.4-10.4 mg/dL Normal Calcium 9.3 Performed By: #### HEMCORAL BMP3 #### [facility] [facility] [address] [place] [phone] HEMOGRAM W/ AUTODIFF Collected: 08/01/2018 Status: F Source: [employer] 11:11 AM SYSTEM REPOSITORY TYPE CODE TESTS RESULT OUT OF REFERENCE UNITS RANGE LAB IWBC 3.6-10.7 10*3/uL WBC High 18.0 LAB RBC 4.40-5.90 10*6/uL RBC Normal 4.95 LAB HGB 13.0-18.0 g/dL Hemoglobin Normal 15.6 LAB HCT 40.0-52.0 % Hematocrit Normal 46.1 LAB MCV 80.0-98.0 fL MCV Normal 93.1 LAB MCH 26.0-34.0 pg MCH Normal 31.5 LAB MCHC 32.0-36.0 % MCHC Normal 33.8 LAB RDW 11.5-14.5 % RDW Normal 12.6 LAB PLT 140-440 10*3/uL Platelet Normal 361 LAB MPV 7.4-10.4 fL Low MPV 7.0 LAB GRAN% 40.0-80.0 % Granulocytes High 90.5 LAB LYMP% 20.0-40.0 % Low Lymphocytes 3.1 LAB MONO% 2.0-10.0 % Monocytes Normal 5.6 LAB EOS% 1.0-6.0 % Low Eosinophils 0.1 LAB BAS% 0.0-2.0 % Basophils Normal 0.7 LAB ANC 1.8-7.0 10*3/uL Abs High Neutrophile Cnt 16.3 LAB ALC 1.0-4.3 10*3/uL Low Abs Lymph Cnt 0.6 LAB AMC 0.0-0.8 10*3/uL Abs Monocyte High Cnt 1.0 LAB AEC 0.0-0.5 10*3/uL Abs Eosin Cnt Normal 0.0 LAB ABC 0.0-0.2 10*3/uL Abs Baso Cnt Normal 0.1 Performed By: #### HEMDF, LACT3, CMP3M, LIPA4, CRP2 #### [facility] [address] [place] [phone] LACTIC ACID Collected: 08/01/2018 Status: F Source: [employer] 11:04 AM SYSTEM REPOSITORY TYPE CODE TESTS RESULT OUT OF RANGE REFERENCE UNITS LAB LACT3 0.7-2.0 mmol/L Normal Lactic Acid 0.8 Performed By: #### HEMDF, LACT3, CMP3M, LIPA4, CRP2 #### [facility] [address] [place] [phone] COMP PANEL WITH MG Collected: 08/01/2018 Status: F Source: [employer] REFLEX 11:04 AM SYSTEM REPOSITORY TYPE CODE TESTS RESULT OUT OF RANGE REFERENCE UNITS LAB NA3 137-145 mmol/L Sodium Normal 140 LAB K3 3.5-5.1 mmol/L Normal Potassium 4.1 LAB CL3 98-107 mmol/L Chloride Normal 104 LAB CO23 22-30 mmol/L Carbon Normal Dioxide 26 LAB ANIN3 NA Anion Gap 10 LAB GLUC3 70-100 mg/dL High Glucose 115 LAB BUN3 7-20 mg/dL Urea Normal Nitrogen 16 LAB CRET3 0.52-1.25 mg/dL Normal Creatinine 1.15 LAB GF3BR >60 mL/min eGFR > 60.0 LAB GF3WR >60 mL/min eGFR OTHER > 60.0 Result Comment: Source- MDRD equation with creatinine calibration to IDMS(NKDEP) eGFR not recommended for drug dose adjustment LAB CA3 8.4-10.4 mg/dL Calcium Normal 9.3 LAB ALB3 3.5-5.0 g/dL Albumin, Serum Normal 4.6 LAB TP3 6.3-8.2 g/dL Total Protein Normal 7.4 LAB BILT3 0.2-1.3 mg/dL Normal Bilirubin,Total 0.9 LAB ALKP3 38-126 U/L High Alkaline Phosphatase 137 LAB ALT3 13-69 U/L ALT (SGPT) Normal 65 LAB AST3 15-46 U/L High AST (SGOT) 57 Performed By: #### HEMDF, LACT3, CMP3M, LIPA4, CRP2 #### [facility] [address] [place] [phone] LIPASE Collected: 08/01/2018 Status: F Source: [employer] 11:04 AM SYSTEM REPOSITORY TYPE CODE TESTS RESULT OUT OF RANGE REFERENCE UNITS LAB LIPA4 23-300 U/L Normal Lipase 38 Performed By: #### HEMDF, LACT3, CMP3M, LIPA4, CRP2 #### [facility] [address] [place] [phone] C-REACTIVE PROTEIN Collected: 08/01/2018 Status: F Source: [employer] 11:04 AM SYSTEM REPOSITORY TYPE CODE TESTS RESULT OUT OF REFERENCE UNITS RANGE LAB 2CRP 0.0-6.0 mg/L High C-Reactive 70.9 Protein Result Comment: . Performed By: #### HEMDF, LACT3, CMP3M, LIPA4, CRP2 #### [facility] [address] [place] [phone] ED PROVIDER NOTE Observed: 07/31/2018 Status: F Source: [employer] 8:53 PM SYSTEM REPOSITORY Triage Chief Complaint: Other (small bowel obstruction ) [place]: Dinesh Cao is a 58 y.o. male who presents to the emergency department as a transfer from [place] due to low grade partial small bowel obstruction. The patient has been experiencing abdominal pain, nausea and nonbloody emesis for the past day. The abdominal pain is located mostly over the right side of his abdomen and is intermittent. He describes it as a sharp sensation. He also has associated abdominal distension. He states that he was experiencing diarrhea until last evening and his last bowel movement was at around 10pm. Labs and CT abdomen/pelvis were done at [place] ED which showed possible small bowel obstruction. NG tube was placed as well which has to partially relieve his symptoms. The patient is known to Dr. Dumont and had a Tavo fundoplication performed in 2016, therefore he was transferred for further evaluation and management. ROS: At least 10 systems reviewed and otherwise acutely negative except as in the [place]. Past Medical History: Diagnosis Date ? Asthma ? GERD (gastroesophageal reflux disease) ? Hyperlipidemia ? Hypertension Past Surgical History: Procedure Laterality Date ? ANKLE SURGERY ? APPENDECTOMY ? CHOLECYSTECTOMY ? COLONOSCOPY 10/2014 ? HIATAL HERNIA REPAIR 01/05/[address] DEL VALLE ? SINUS SURGERY ? UPPER GASTROINTESTINAL ENDOSCOPY 10/2014 ? UPPER GASTROINTESTINAL ENDOSCOPY 03/17/2018 biopsies taken; Dr. Del Valle ? VARICOSE VEIN SURGERY ? VASECTOMY Family History Problem Relation Age of Onset ? High Blood Pressure Mother ? Kidney Disease Father ? High Blood Pressure Brother Social History Social History ? Marital status: Spouse name: N/A ? Number of children: N/A ? Years of education: N/A Occupational History ? Not on file. Social History Main Topics ? Smoking status: Never Smoker ? Smokeless tobacco: Never Used ? Alcohol use No ? Drug use: No ? Sexual activity: Not on file Other Topics Concern ? Not on file Social History Narrative ? No narrative on file Current Facility-Administered Medications Medication Dose Route Frequency Provider Last Rate Last Dose ? sodium chloride flush 0.9 % injection 10 mL 10 mL Intravenous 2 times per day Monse Abdur Alexis, DO ? sodium chloride flush 0.9 % injection 10 mL 10 mL Intravenous PRN Monse Abdur Alexis, DO ? ondansetron (ZOFRAN) injection 4 mg 4 mg Intravenous Q6H PRN Monse Rosenur Alexis, DO ? enoxaparin (LOVENOX) injection 40 mg 40 mg Subcutaneous Daily Monse Alexis, DO ? 0.9 % sodium chloride infusion Intravenous Continuous Abhi Bhardwaj MD 100 mL/hr at 08/01/18 0051 Allergies Allergen Reactions ? Latex Rash ? Iodine Hives ? Percocet [Oxycodone-Acetaminophen] CONSTIPATION ? Propofol DIFFICULT TO WAKE UP ? Tetracyclines & Related ? Vibramycin [Doxycycline Calcium] Nursing Notes Reviewed Physical Exam: ED Triage Vitals Enc Vitals Group BP 07/31/182112 132/67 Pulse 07/31/182112 104 Resp 07/31/182112 Temp 07/31/182112 99.4 ?F (37.4 ?C) Temp Source 08/01/18 0045 Oral SpO2 07/31/182112 99 % Weight 07/31/182112 243 lb (110.2 kg) Height 07/31/182112 5' 10 (1.778 m) Head Circumference -- Peak Flow -- Pain Score -- Pain Loc -- Pain Edu? -- Excl. in GC? -- GENERAL APPEARANCE: Awake and alert, resting comfortably in bed at the time of my exam. HEENT: Head is normocephalic and grossly atraumatic. There is no conjunctival pallor. Sclera are anicteric and noninjected. Mucous membranes of the mouth are moist. NECK: Trachea is midline. LUNGS: Clear to auscultation bilaterally without wheezing or rales. Good airflow. HEART: Regular rate and rhythm. S1-S2 noted. No murmurs auscultated. ABDOMEN: Abdomen was soft and mildly distended. There was diffuse tenderness to palpation. There is no guarding or rebound. There is no mass. There is no CVA tenderness to palpation. MSK/EXTREMITIES: No acute deformities. Normal strength bilaterally in upper and lower extremities. Peripheral pulses are present and symmetric bilaterally. There is no peripheral edema. SKIN: Warm and dry. NEUROLOGICAL: Patient is awake, alert and oriented with normal speech and normal hearing. Patient is responding and cooperating appropriately to exam. Face is symmetrical. PSYCHIATRIC: Normal mood and affect. Good judgement. I have reviewed and interpreted all of the currently available lab results from this visit (if applicable): No results found for this visit on 07/31/18. Radiographs: No results found. MDM: Based on the above history and physical exam, I am most concerned about acute small bowel obstruction especially due to the patient's symptoms. Review of the outside labs were within normal limits. CT abdomen/pelvis showed low grade partial obstruction secondary to acute distal ileitis which has been seen on previous exams and is concerning for possible underlying chron's disease. As the patient is known to Dr. Dumont, the surgery service was consulted and the resident telecommunication systems designer has agreed to see and evaluate the patient at bedside. On re-evaluation, the patient has remained stable and denies any new symptoms. Per the general surgery service recommendations, the patient will be admitted to the medical floor with GI consult and they will continue to follow the patient during his hospital admission. The patient was admitted to the hospital in stable condition. Clinical Impression: Abdominal pain, concern for small bowel obstruction Nausea and vomiting Comment: Please note this report has been produced using speech recognition software and may contain errors related to that system including errors in grammar, punctuation, and spelling, as well as words and phrases that may be inappropriate. If there are any questions or concerns please feel free to contact the dictating provider for clarification. Ana Maria Oliva MD 08/01/18 1525 EMERGENCY DEPARTMENT Observed: 07/31/2018 Status: F Source: [place] SUMMARY 7:03 PM [facility] Medical Records Department [address] [place] [address] Emergency Department Summary 07/31/18 1458 MR#: [id number] Acct: [id number] Name: DINESH CAO Rep #: [id number] : 1960 58 From: Campbell Aguilar MD PCP: Jeannette Mosqueda III, MD Status: REG ER - ER Visit Summary Date of Service: 07/31/18 Chief Complaint: Cough, shortness of breath History of Present Illness: The patient is a 58 M with history of recurrent pneumonia and prior pulmonary embolus presents to the emergency department with cough and shortness of breath. Patient states that he had cough for the past 10 days. He actually saw Dr. Doyle in the office. He felt that was likely viral. He was placed on prednisone burst. He states that he did improve, but over the past 2 days, symptoms worsened. He has had cough, chest pain, productive sputum, nausea, and vomiting. He states this feels very similar to when he had pneumonia before. He states that his called Dr. Doyle's office and he was referred to the emergency department for further evaluation. He has had low-grade fever. He is also had chills. He denies any dysuria. He denies any change in bowel habits. He does have a prior pulmonary embolus in September, but is off anticoagulants. He states that he did have a surgery on his esophagus for reflux at [facility] 3 years ago so he does have pain when he vomits. Physical Examination: Vital signs reviewed General: Well-nourished, well-developed Head: Normocephalic, atraumatic Eyes: Pupils equal and reactive, extraocular muscles intact Neck, supple, no lymphadenopathy Heart: Regular rate and rhythm Respiratory: No distress, clear bilaterally Abdomen: Soft, mildly tender in the midepigastric area without rebound or guarding, softly distended, no peritoneal signs Back: Nontender Extremities: Nontender, no edema, no cords Skin: Normal color no rash Neuro: Alert and oriented, no focal or lateralizing deficits Test Results: [] Emergency Department Course and Treatment: The patient presents with cough, generalized malaise, but also has had nausea and vomiting. His abdomen was mildly distended and minimally tender in the midepigastric area. I initially started with a metabolic workup to rule out pneumonia given the patient's history. I also discussed the patient with Dr. Doyle. His labs are unremarkable except for mild leukocytosis. His chest x-ray shows no infiltrate, but he does had some air-fluid levels within his abdomen. Because of this, I obtained a noncontrast CT of his abdomen. This does demonstrate a small bowel obstruction with ileitis. The patient was covered with broad-spectrum antibiotics. It is not mechanical obstruction. After discussion with the patient and family, they are requesting transfer to [facility] where his surgeon is. The patient was discussed with the transfer line and was accepted by Dr. Culp. He will be transferred for surgical evaluation Treatment Plan: [] Disposition: Transfer Impression: 1. Nausea vomiting 2. Small bowel obstruction This note was generated with Loglyation software. It may contain incorrect words, spelling, and punctuation that were not noted in review of the chart prior to signing ED Disposition - Plan for ED Patient: Chief Complaint: General Illness Referrals: Jeannette Mosqueda III, MD [Primary Care Provider] - What to do if you have Problems For any increased pain, shortness of breath, bleeding, nausea or vomiting, chest pain, or any unexpected problems, contact your Primary Care Provider. Call [facility] ([phone]) or report to the closest Emergency Room. Call 911 if necessary. 07/31/18 1903 <Electronically signed by Campbell Aguilar MD> Date Campbell Aguilar MD Cosigner Signature (If Indicated): Date CC: Jeannette Mosqueda III, MD ABDOMEN SINGLE VIEW Observed: 07/31/2018 Status: F Source: [place] (PORTABLE) 5:32 PM [facility] Imaging Services [address] [place] [id number] Abdomen Single View (Portable) MR#: [id number] Acct: [id number] Name: DINESH CAO Rep #: [id number] : 1960 M 58 From: Marcelino Weeks DO PCP: Jeannette Mosqueda III, MD Status: REG ER Study: Abdomen Single View (Portable) Date of Exam: 07/31/18 Exam# [id number] Ordering Dr: Campbell Aguilar MD STUDY: X-RAY - ABDOMEN/PELVIS REASON FOR EXAM: Male, 58 years old. NG placement TECHNIQUE: A single upright portable view of the lower chest and upper abdomen. COMPARISON: CT of the abdomen and pelvis, July 31, 2018. Chest, July 31, 2018. FINDINGS: Normal visualized lung bases. There is now an NG tube with its tip in the distal stomach. There is decompression of the stomach. Is continued distended gas-filled small bowel loops in the upper abdomen. There is no demonstrated free abdominal air. The visualized liver, spleen and kidneys are grossly normal in size and morphology. Cholecystectomy clips are again seen in the right upper quadrant. Normal soft tissue structures. Normal visualized osseous structures. RAD/Abdomen Single View (Portable) IMPRESSION: NG tube with its tip in the distal stomach. Electronically Signed: Marcelino Weeks DO at 19:03 EST Tel [phone], Service support , CC: Jeannette Mosqueda III, MD; Campbell Aguilar MD Digital Marketing Officer: Signed URINALYSIS, COMPLETE Collected: 07/31/2018 Status: F Source: [place] 4:15 PM [facility] Order Comment: Order Date: 07/31/18 How was Urine Obtained? CLEAN CATCH TYPE CODE TESTS RESULT OUT OF RANGE REFERENCE UNITS LAB L400.3000 Yellow COLOR Normal Yellow LAB L400.3050 Clear Normal CLARITY Clear LAB L400.3200 Normal mg/dl Normal GLUCOSE, UR Normal LAB L400.3300 Negative mg/dL Normal BILIRUBIN URINE Negative LAB L400.3400 Negative mg/dl Normal KETONE UR Negative LAB L400.3465 1.002-1.030 Normal SP.GR. DIPSTX 1.005 LAB L400.3550 5.0 - 8.0 pH UR Normal 6.0 LAB L400.3600 Negative mg/dl High PROT 15 DIPSTX LAB L400.3700 Normal mg/dl Normal UROBILI Normal LAB L400.3750 Negative Normal NITRITE UR Negative LAB L400.3780 Negative /ul Normal OCCULT BLOOD-UR Negative LAB L400.3800 Negative /ul LEUK Normal ESTERASE Negative LAB L400.4050 0-5 /hpf WBC 0 Normal SEEN LAB L400.4100 0-5 /hpf 0 Normal RBC-UA SEEN LAB L400.4150 0-5 /hpf SQUAM 0 Normal EPI SEEN LAB L400.4300 None Seen /hpf 0 Normal BACTERIA SEEN LAB L400.4350 <or=2+ /hpf 0 Normal MUCUS, URINE SEEN Performed By: #### L400.0001 #### [facility] [address] [place], [address] ABDOMEN/PELVIS WITHOUT Observed: 07/31/2018 Status: F Source: [place] CONT 4:00 PM [facility] Imaging Services [address] [place] [address] Abdomen/Pelvis without Cont MR#: [id number] Acct: [id number] Name: DINESH CAO Rep #: [id number] : 1960 M 58 From: Tucker Hazel MD PCP: Jeannette Mosqueda III, MD Status: REG ER Study: Abdomen/Pelvis without Cont Date of Exam: 07/31/18 Exam# [id number] Ordering Dr: Campbell Aguilar MD STUDY: CT ABDOMEN AND PELVIS WITHOUT CONTRAST REASON FOR EXAM: Male, 58 years old. Abdominal pain, nausea, vomiting, diarrhea, body aches. History of appendectomy, cholecystectomy, hypertension. RADIATION DOSAGE (If Supplied By Facility): CTDIvol = ( 18.67 ) mGy, DLP = ( 1077.29 ) mGycm TECHNIQUE: Transaxial images were obtained from the dome of the diaphragm to the symphysis pubis without oral contrast, and without intravenous contrast. Sagittal and coronal images were reconstructed. Individualized dose optimization techniques were used for this CT. COMPARISON: CT abdomen and pelvis 06/17/2015. FINDINGS: Body wall soft tissues: No acute process. Osseous structures: Mild multilevel lumbar spondylosis without significant stenosis. Slight scoliosis. Ankylosis of the right SI joint. No significant degenerative features of the left. Mild hip joint degenerative changes. Inferior chest: Lung bases clear, normal cardiac base with no pericardial effusion. Minimal sliding hiatal hernia. There is mild thickening and fatty infiltration the wall of the distal most esophagus which may be associated with GERD and suggest chronic inflammation. Similar features seen on prior imaging of 2014. Hepatobiliary: Cholecystectomy. Borderline hepatomegaly, craniocaudal right liver 17.9 cm. Nondilated biliary tree. Pancreas: Mild atrophy. Spleen: Normal. Adrenal glands: Normal. Urogenital: There are small low-density cystlike foci of each kidney, the largest in the right renal superior pole, each stable compared to prior imaging of 2015, consistent with benignity. There is minimal chronic perinephric stranding. There is a solitary punctate nonobstructing calyceal calculus of the right renal superior pole measuring less than 2 mm. There are no retained calculi in the left kidney. Normal collecting systems, ureters, urinary bladder, prostate and seminal vesicles. Pelvic floor and sidewalls and retroperitoneum: No mass or adenopathy. Vasculature: No acute process. Stomach: Mild chronic fatty infiltration the wall the distal stomach, stable compared to imaging of 2015. Small bowel and mesentery: Mild chronic fatty infiltration the wall the duodenum without acute inflammatory features stable compared to prior imaging. Normal jejunum. Gradually increasing dilatation of fluid-filled ileum to the level of the distal ileum, where there is mild circumferential fatty infiltration and thickening of the wall of the distal and terminal ileum in a pattern consistent with sequela from prior ileitis, with evidence of very mild induration and hyperemia in the fat adjacent to a few segments, consistent with mild acute ileitis. The maximum caliber of the distal small bowel is 3.8 cm. There is no abrupt transition point. No evidence of mechanical obstruction. Large bowel: The appendix is surgically absent. There is mild fatty infiltration the wall of the ascending colon, hepatic flexure, transverse colon, splenic flexure descending colon and sigmoid, and rectum, suggesting sequela of prior inflammation without evidence of acute colitis at this time. Stable features compared to prior imaging. Free fluid or free air: None. CT/Abdomen/Pelvis without Cont IMPRESSION: Dilated ileum, fluid-filled, air-fluid levels, consistent with a low-grade partial obstruction secondary to acute distal ileitis. No evidence of focal mechanical obstruction. There is fatty infiltration in the wall of the distal stomach, proximal duodenum, distal ileum, terminal ileum and the entirety of the large bowel and rectum. These features have been present since prior imaging of 2014 and typically represents sequela of prior inflammation. The distribution suggests the possibility of underlying Crohn's disease. Electronically Signed: Tucker Hazel MD at 17:23 EST Tel , Service support , CC: Jeannette Mosqueda III, MD; Campbell Aguilar MD Digital Marketing Officer: Signed Observed: 07/31/2018 Status: F Source: [place] CULTURE, BLOOD (WB) 3:29 PM [facility] BC No growth in 5 days. Performed By: #### M200.1000 #### [facility] [address] [place], [address] CBC W/DIFF, AUTOMATED Collected: 07/31/2018 Status: F Source: [place] 3:10 PM [facility] TYPE CODE TESTS RESULT OUT OF RANGE REFERENCE UNITS LAB L100.1000 4.4-11.0 K/mm3 High WBC 12.2 LAB L100.1200 4.6-6.2 M/mm3 Normal RBC 5.28 LAB L100.1300 13.0-16.5 g/dl High HGB 16.6 LAB L100.1400 40-54 % Normal HCT 49.6 LAB L100.1500 80-94 fL Normal MCV 93.9 LAB L100.1600 27.0-32.0 pg Normal MCH 31.4 LAB L100.1700 32-36 g/gl Normal MCHC 33.5 LAB L100.1810 11.6-14.6 % Normal RDW CV 12.4 LAB L100.1820 35.1-43.9 fl Normal RDW SD 42.5 LAB L100.1900 150-450 K/mm3 Normal PLT 375 LAB L100.2000 6.2-12.0 fl Normal MPV 8.9 LAB L100.2100 47-70 % High NEUT% 80.9 LAB L100.2200 19-41 % Low LY% 11.6 LAB L100.2300 0-10 % Normal MONO% 5.7 LAB L100.2400 0-5 % Normal EO% 1.1 LAB L100.2500 0-1 % Normal BASO% 0.5 LAB L100.2550 0.0-0.9 % Normal IM GRAN % 0.200 Result Comment: IG% - Immature Granulocytes (promyelocytes, myelocytes and metamyelocytes) > 1% indicates that a LEFT SHIFT is Present. LAB L100.2620 2.0-7.7 X10 3/uL High Absolute Neut 9.9 LAB L100.2720 0.83-4.51 X10 3/ul Normal Absolute Lymph 1.41 Performed By: #### L100.0100 #### [facility] [address] [place], [address] COMPREHENSIVE METABOLIC Collected: 07/31/2018 Status: F Source: [place] [facility] 3:10 PM [facility] TYPE CODE TESTS RESULT OUT OF RANGE REFERENCE UNITS LAB L501.0100 74-106 mg/dL High GLU 118 Result Comment: Fasting Glucose result from 100 to 125 mg/dL suggests IMPAIRED HOMEOSTASIS per A.D.A. criteria. Please note revised GLUCOSE reference range effective 2017. LAB L501.1000 7-18 mg/dL Normal BUN 9 LAB L501.1100 0.70-1.30 mg/dL Normal CREAT,SERUM 1.13 Result Comment: The validity of the calculated GFR AND GFRAA in patients over 70 years has not been determined. Clinical correlation is essential. LAB L501.1110 >60 mL/min Normal EST GFR 71 Result Comment: Non- GFR Calc LAB L501.1115 >60 mL/min Normal EST GFR - AA 85 Result Comment: GFR Calc LAB L501.1255 ml/min Normal Estimated CRCL 74.97 LAB L501.1300 10-20 RATIO Low BUN/CRE 8.0 LAB L501.1500 6.4-8. g/dL High 2 T PROT 8.4 LAB L501.1800 3.2-5. g/dL Normal 0 ALB 4.3 LAB L501.1950 2.2-4. g/dL Normal 2 GLOB 4.1 LAB L501.2000 0.9-2. RATIO Normal 4 A/G 1.0 LAB L501.2200 8.5-10 mg/dL Normal .1 CA 9.2 LAB L501.4100 15-37 U/L Normal AST 20 LAB L501.4305 45-117 U/L High ALK P 157 LAB L501.4405 16-61 U/L Normal ALT 30 LAB L501.4600 0.20-1 mg/dL Normal .00 T BILI 0.80 LAB L501.5300 136-14 mmol/L Normal 5 NA 140 LAB L501.5600 3.5-5. mmol/L Normal 1 K 3.6 LAB L501.5900 98-107 mmol/L Normal CL 105 LAB L501.6100 21.0-3 mmol/L Normal 2.0 CO2 30.0 LAB L501.6200 5-15 Normal GAP 5 Performed By: #### L500.4050, L501.2450, L501.4010 #### [facility] [address] [place], [place], [address] LIPASE Collected: 07/31/2018 Status: F Source: [place] 3:10 PM [facility] TYPE CODE TESTS RESULT OUT OF RANGE REFERENCE UNITS LAB L501.2450 73-393 U/L Normal LIPASE 97 Performed By: #### L500.4050, L501.2450, L501.4010 #### [facility] [address] [place], [place], [address] TROPONIN-I Collected: 07/31/2018 Status: F Source: [place] 3:10 PM [facility] TYPE CODE TESTS RESULT OUT OF RANGE REFERENCE UNITS LAB L501.4010 <0.045 ng/mL Normal < 0.015 TROPONIN-I Result Comment: TROPONIN-I EXPECTED VALUES <0.045 Negative 0.045 - 0.590 Consistent with Cardiac Damage > OR = 0.600 Critical Value Not every elevated troponin is indicative of MT. These values should be used with clinical judgement in examining the patient's clinical picture for diagnosis. To establish a diagnosis of MT versus myocardial injury, there must be a demonstrated rise and/or fall in the troponin values, in addition to ischemic symptoms, EKG changes, new regional wall motion abnormality, and/or angiographical evidence. PLEASE NOTE: REFERENCE RANGES EDITED 18 Performed By: #### L500.4050, L501.2450, L501.4010 #### [facility] [address] [place], [place], [address] LACTIC ACID Collected: 07/31/2018 Status: F Source: [place] 3:10 PM [facility] Order Comment: Yes/No query for Sepsis Lactate Rule Y TYPE CODE TESTS RESULT OUT OF RANGE REFERENCE UNITS LAB L503.6005 0.4-2.0 mmol/L Normal LACTIC ACID 0.8 Performed By: #### L503.6005 #### [facility] [address] [place], [address] Observed: 07/31/2018 Status: F Source: [place] CULTURE, BLOOD (WB) 3:10 PM [facility] BC No growth in 5 days. Performed By: #### M200.1000 #### [facility] [address] [place], [address] CHEST PA AND LATERAL Observed: 07/31/2018 Status: F Source: [place] 2:55 PM [facility] Imaging Services [address] [place] [address] Chest PA and Lateral MR#: [id number] Acct: [id number] Name: DINESH CAO Rep #: [id number] : 1960 M 58 From: Tucker Hazel MD PCP: Jeannette Mosqueda III, MD Status: REG ER Study: Chest PA and Lateral Date of Exam: 07/31/18 Exam# [id number] Ordering Dr: Campbell Aguilar MD STUDY: X-RAY CHEST REASON FOR EXAM: Male, 58 years old. Cough, chest pain TECHNIQUE: PA and lateral chest COMPARISON: 11/15/2017 x-ray chest, VQ scan 11/15/2017, CT chest 09/11/2017. FINDINGS: Acutely clear lungs. Hyperlucent features consistent with underlying COPD. Benign calcified granuloma of the right upper lobe. No effusion or pneumothorax. Normal cardiac mediastinal silhouette. No acute osseous process. Mildly prominent loops of small bowel in the upper abdomen, nonspecific. Gas-filled, great is diameter about 3.5 cm. Suspected air- fluid level. RAD/Chest PA and Lateral IMPRESSION: No acute cardiopulmonary process. Mildly conspicuous small bowel pattern in the upper abdomen, incomplete characterized. Follow-up supine and upright KUB is recommended. Electronically Signed: Tucker Hazel MD at 16:10 EST Tel , Service support , CC: Jeannette Mosqueda III, MD; Campbell Aguilar MD Digital Marketing Officer: Signed PULMONARY VISIT REPORT Observed: 07/21/2018 Status: F Source: [place] 10:48 AM [facility] [address] [place] [address] OFFICE VISIT Date of Service: 07/21/18 MR#: [id number] Acct: [id number] Name: DINESH CAO Rep #: [id number] : 1960 Provider: Karen López Age/Sex: 58/M Location: [facility] Status: Signed Assessment AND Plan 1. Chronic cough R05 Plan Possible viral etiology. Complete prednisone burst. Continue maintenance medications. Continue Mucinex and Delsym as needed to control symptoms. Keep previously scheduled routine follow-up. Influenza vaccination provided today. Discussed the possibility of testing with a respiratory viral panel, given the fact that the treatment would not change the patient has decided not to pursue testing at this time. Plan Detail Other Orders Orders: Other Medications New: Discontinued: prednisone 4 tablet daily for 5 days Discontinued R10 mg PO QDAY 20 tabs 0RF J45.50 kim: Order Completed HPI SOB, Painful sinuses: Chief Complaint: Dry cough HPI Comments Details: This patient presents the office today to follow-up after recently being treated for acute exacerbation of his asthma. He is currently on room air. The patient was placed on a prednisone burst 4 days ago. His symptoms that he called the office reporting was dry persistent cough. And a worsening in shortness of breath. Since starting the prednisone burst he reports that for couple days his symptoms were better but unfortunately they have returned. He is short of breath on exertion. He has a persistent dry cough, denies any sputum production or hemoptysis. His albuterol nebulizer can be helpful for the cough. He denies any wheezing, chest tightness, chest pain or palpitations. She does report a burning sensation in his lungs from the frequent coughing. He has been using Delsym and Mucinex for symptom management, with some good control. He does report chest congestion, somewhat controlled by the Mucinex. He states that the Delsym calms the cough down. He does not identify any new triggers or changes in his home. He reports that recently his is Lara Gaston and it caused him to go into a coughing spell, and being exposed to her for a few also caused a cough. He continues with Brio daily. He rinses his mouth out after each use. He denies any medication side effects such as sore throat or thrush. He continues with Singulair daily he has been using omeprazole 20 mg twice daily. Intake Vital Signs07/21/18 Height 5 ft 11 in 07/21/18 Weight: 248 lb Intake Visit Reasons: SOB, Painful sinuses Accompanied by: Self Allergies povidone-iodine [From Betadine] Adverse Reaction (Severe, Verified 05/14/18 07:42) Hives soap [From Betadine] Adverse Reaction (Severe, Verified 05/14/18 07:42) Hives adhesive tape Adverse Reaction (Verified 05/14/18 07:42) Rash benzoin Adverse Reaction (Verified 05/14/18 07:42) Rash doxycycline calcium [From Vibramycin] Adverse Reaction (Verified 05/14/18 07:42) constipation doxycycline hyclate [From Vibramycin] Adverse Reaction (Verified 05/14/18 07:42) constpation doxycycline monohydrate [From Vibramycin] Adverse Reaction (Verified 05/14/18 07:42) constipation hydrocodone bitartrate [From Vicodin] Adverse Reaction (Verified 05/14/18 07:42) constipation tetracycline [Tetracycline] Adverse Reaction (Verified 05/14/18 07:42) constipation Medications Atorvastatin Calcium [Lipitor] 20 mg PO QHS 06/17/15 [History Confirmed 07/21/18] Multivitamins,Therapeutic [Multivitamin] 1 tab PO DAILY 06/17/15 [History Confirmed 07/21/18] Acetaminophen [Tylenol Extra Strength] 1,000 mg PO BID 09/12/17 [History Confirmed 07/21/18] albuterol sulfate HFA 90 mcg/actuation aerosol inhaler 2 puff INHALATION Q6H PRN 09/25/17 [History Confirmed 07/21/18] omeprazole 20 mg tablet,delayed release 20 mg PO QDAY tab 09/25/17 [History Confirmed 07/21/18] amlodipine 10 mg tablet 10 mg PO QDAY #90 tab 09/27/17 [Rx Confirmed 07/21/18] apixaban 5 mg tablet 5 mg PO BID #180 tab 09/27/17 [Rx Confirmed 07/21/18] albuterol sulfate 2.5 mg/3 mL (0.083 %) solution for nebulization 2.5 mg INHALATION Q4H PRN ml 11/05/17 [History Confirmed 07/21/18] fluticasone 200 mcg-vilanterol 25 mcg/dose powder for inhalation 1 inh INHALATION Q24H #60 ea 11/29/17 [Rx Confirmed 07/21/18] chlorpheniramine 4 mg tablet 4 mg PO Q6H 03/14/18 [History Confirmed 07/21/18] montelukast 10 mg tablet 10 mg PO QPM #30 tab 06/02/18 [Rx Confirmed 07/21/18] prednisone 20 mg tablet 60 mg PO QDAY #15 tab 07/18/18 [Rx Confirmed 07/18/18] PFSH Medical History Pulmonary embolism on left (Chronic) Peripheral vascular disease (Chronic) Asthma, severe persistent (Chronic) GERD (gastroesophageal reflux disease) (Chronic) Aspiration pneumonia of right lower lobe (Acute) Chronic cough (Chronic) Hypersomnia (Acute) PND (paroxysmal nocturnal dyspnea) (Acute) Benign essential hypertension (Chronic) Syncope and collapse (Acute) Acute left lower lobe peripheral PE (Inactive) GERD (gastroesophageal reflux disease) (Inactive) Partially treated aspiration pneumonia (Inactive) 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) Surgical History History of sinus surgery (Resolved) History of vein stripping (Resolved) History of knee surgery (Resolved) History of vasectomy (Resolved) Hx of appendectomy (Resolved) History of cholecystectomy (Resolved) Family History Brother Hypertension Social History Smoking Status: Never smoker second hand exposure: No alcohol intake: never substance use type: does not use Review of Systems Const CONSTITUTIONAL: Positive fatigue; negative anorexia, body ache, chills, daytime sleepiness, fever(s), night sweats, oral thrush, stops breathing during sleep, weight loss, sleeping in chair, weight loss, weight gain, frequent colds, seasonal allergies, other, headache(s) or orthopnea EETM Ear Nose Throat Mouth: Positive hearing normal; negative hard of hearing, hoarseness, dry mouth in morning, change in vision, itchy eyes, eye pain, swallowing Difficulty, ear pain, nose bleed, headache(s), mouth pain, nasal congestion, nasal discharge, post nasal drip, sinus pain, sinus pressure, sore throat or other Cardio Cardiovascular: Negative chest pain, chest pain at rest, chest pain with activity, irregular heart rhythm, edema, shortness of breath when lying down, palpitations, murmur or other Resp Respiratory: Positive as per HPI, shortness of breath shortness of breath: Positive with activity and worsening, pain with cough, cough cough: Positive productive color: Positive thick and clear and chest tightness; negative wheezing, chest congestion, pain on inspiration, inhalers, increase use of rescue inhalers, snoring, apnea or other (chest burning) Gastro Gastrointestional: Negative bloody stools, change in appetite, difficulty swallowing, reflux, hematemesis, melena stool, loose stool, constipation or other Genitourinary: Negative blood in urine, nocturia, pain with urination or other Musc Musculoskeletal: Negative body pain, back pain, neck pain or other Skin/Breast Skin/Breast: Negative dry skin, itching, rash, unusual bruising, breast lump or other Neuro Neurological: Negative restless legs, confusion, weakness or other Psych Psychocological: Negative abnormal sleep pattern, anxiety, thoughts of hurting self/others, hopelessness or other Lymph Lymphatic: Negative easy bleeding, easy bruising, swollen lymph nodes or other Exam Const Constitutional: Positive conversant, cooperative, in no acute respiratory distress, healthy appearing, well developed, well nourished, good hygiene and obese Head Head: Positive normocephalic and atraumatic; negative cyanosis of lips/distal nose Eyes Eye: Positive clear conjunctiva and nystagmus; negative scleral abnormality Ears Ear: Positive hearing normal and external ears normal; negative hard of hearing Nose Nose: Positive external nose normal and no nasal discharge; negative epistaxis Mouth Mouth: Positive oral mucosae normal, no lesions, good dentition and posterior oropharynx is adequate; negative post nasal drip, malodorous breath or oral thrush present Mallampati Score: I: Mallampati Score Neck Neck: Positive normal visual inspection, full ROM and trachea midline; negative lymphadenopathy, JVD or tender Chest Wall Chest: Positive normal inspection of the chest and symmetric chest movement; negative increased A/P diameter Resp lung sounds: Positive clear to auscultation, good air exchange, normal expiratory time and normal respiratory effort; negative diminished, wheezes, rhonchi, rales or dullness to percussion Cardio Cardiac: Positive regular rate, regular rhythm, S1 normal and S2 normal; negative murmur GI GI: Positive normal to inspection and obese; negative distended Genitourinary: Positive deferred Musc Musculoskeletal: Positive steady gait and ROM normal; negative kyphosis or scoliosis Skin Pulmonary Skin Exam: Positive intact; negative rash Pulses Pulse: Yes pulses normal x4 extremities Extremities Extremities: Yes capillary refill normal, No clubbing, No cyanosis, No edema Neuro Neurologic: Yes conversant, Yes no focal neuro deficits, Yes normal concentration, Yes understands questions, Yes cooperative, Yes normal cognition, Yes normal coordination Lymph Lymphatic: No lymphadenopathy Psych Appearance: Positive grossly normal, eye contact and well kempt Mental Status: Positive mental status grossly normal Mood: Positive congruent mood Affect: Positive normal affect Office Meds Flucelvax Quad [id number] (PF) Performing Provider: VINAY Holland Administered by: Kyleigh Kelley on 07/21/18 10:40 Dose Route Admin Location Lot Number Expiration Date NDC Crayon Sawyer 60 mcg IM Lt deltoid [id number] 01/31/19 14657-358-75 SEQIRUS Coding Level of Care Code Off vis,est,level 3 Diagnoses Chronic cough R05 07/21/18 1048 <Electronically signed by Karen MCLEAN> Date Karen MCLEAN Cosigner Signature: Date (if applicable) CC: Jeannette Mosqueda III, MD PROGRESS Observed: 07/01/2018 Status: COMPLETED Source: [place] 2:43 PM [facility] [place] REPOSITORY O ID: [id number] Author: Jeannette Mosqueda III Service: (none) Author Type: Physician Type: Progress Notes Filed: 07/01/2018 6:31 PM Note Text: SUBJECTIVE: This is a 58 year old male that is here today for 2 wk hx of cough that started with head cold. Getting worse with OROZCO. Ear pain resolved. No fever, chills. History of asthma, now on Breo and doing better. States he uses his albuterol inhaler only 3 times per week since on Breo. PAST MEDICAL HISTORY Diagnosis Date - Achilles tendinitis 02/10/2011 - Allergic rhinitis 02/27/2012 - ASHD (arteriosclerotic heart disease) 09/13/2011 - Asthma 11/03/2014 - Chronic cough - Cough syncope syndrome - Esophageal reflux Gastroesophageal reflux - Essential hypertension, benign - GERD (gastroesophageal reflux disease) - Hiatal hernia 06/17/2015 [facility] - see scanned documents - Hyperlipidemia LDL goal < 100 01/21/2013 - Peripheral vascular disease (HCC) - Pulmonary embolus (HCC) 09/23/2017 left - Severe persistent asthma with acute exacerbation - Syncope 11/06/2017 and collapse Current Outpatient Prescriptions on File Prior to Visit: triamcinolone acetonide (NASACORT) 55 mcg nasal inhaler Use 2 Sprays in the nose once daily. atorvastatin (LIPITOR) 20 mg tablet Take 1 tablet by mouth once daily. fluticasone-vilanterol (BREO ELLIPTA) 200-25 mcg/dose inhaler Inhale 1 Inhalation as instructed once daily. Omeprazole 40 mg capsule Take 1 capsule by mouth once daily. albuterol (PROVENTIL) 2.5 mg /3 mL (0.083 %) nebulizer solution Use 3 mL via nebulizer every 4 hours as needed for Wheezing/Shortness of Breath. Use over 5-15minutes. PROAIR HFA 90 mcg/actuation inhaler amLODIPine (NORVASC) 5 mg tablet take 1 tablet by mouth once daily (Patient taking differently: take 2 tablet by mouth once daily) multivitamin ORAL tablet Take one(1) tablet daily. chlorpheniramine maleate (CHLORPHEN SR) 12 mg TbER Take 12 mg by mouth every 12 hours. NYSTATIN ORAL Take 5 mL by mouth three times daily. apixaban (ELIQUIS) 5 mg tab tab(s) Take 10 mg by mouth twice daily. No current facility-administered medications on file prior to visit. FAMILY HISTORY Problem Relation Age of Onset - Hypertension Mother - other (renal stones [Other]) Father - Diabetes Son - other (GERD [Other]) Brother Social History Substance Use Topics - Smoking status: Never Smoker - Smokeless tobacco: Never Used - Alcohol use No BP 119/69 Pulse 68 Resp 18 Wt 111.1 kg (245 lb) BMI 34.17 kg/m? . OBJECTIVE: APPEARANCE Well appearing, alert, in no acute distress, well-hydrated, well nourished. and Obese EYES conjunctivae and sclerae normal, lids and lashes normal and lacrimal apparatus normal EARS External ears normal, canals clear NOSE/SINUS Nares normal. Septum midline. Mucosa normal. No drainage or sinus tenderness. THROAT normal, no erythema NECK Supple, no adenopathy; thyroid symmetric, normal size, no bruits HEART RRR with normal S1 and S2, no murmurs, no gallops, no JVD appreciated LUNG clear to auscultation ASSESSMENT: URI with bronchitis asthma--good control allergic rhinitis PLAN: rest, fluids, advance activity as able same medications mucinex DM 1-2 tsp every 4 hrs as needed for cough allergy referral per pt request. Previous allergy shots worked well. He is now off of singulair which did not seem to have benefit TEO Manjarrez MD, III MD CNOV Observed: 07/01/2018 Status: COMPLETED Source: [place] 2:40 PM [facility] REPOSITORY Office Visit (FAMPWS) DINESH CAO ([id number]) 1960 M Date Time Provider Department 07/01/18 2:40 PM JEANNETTE MOSQUEDA IIIPJANE During your visit today, we recorded the following information about you: Pulse Respiration Blood pressure Weight 68/minute 18/minute 119/69 111.1 kg Jeannette Mosqueda III MD 07/01/2018 6:31 PM Signed SUBJECTIVE: This is a 58 year old male that is here today for 2 wk hx of cough that started with head cold. Getting worse with OROZCO. Ear pain resolved. No fever, chills. History of asthma, now on Breo and doing better. States he uses his albuterol inhaler only 3 times per week since on Breo. PAST MEDICAL HISTORY Diagnosis Date - Achilles tendinitis 02/10/2011 - Allergic rhinitis 02/27/2012 - ASHD (arteriosclerotic heart disease) 09/13/2011 - Asthma 11/03/2014 - Chronic cough - Cough syncope syndrome - Esophageal reflux Gastroesophageal reflux - Essential hypertension, benign - GERD (gastroesophageal reflux disease) - Hiatal hernia 06/17/2015 [facility] - see scanned documents - Hyperlipidemia LDL goal < 100 01/21/2013 - Peripheral vascular disease (HCC) - Pulmonary embolus (HCC) 09/23/2017 left - Severe persistent asthma with acute exacerbation - Syncope 11/06/2017 and collapse Current Outpatient Prescriptions on File Prior to Visit: triamcinolone acetonide (NASACORT) 55 mcg nasal inhaler Use 2 Sprays in the nose once daily. atorvastatin (LIPITOR) 20 mg tablet Take 1 tablet by mouth once daily. fluticasone-vilanterol (BREO ELLIPTA) 200-25 mcg/dose inhaler Inhale 1 Inhalation as instructed once daily. Omeprazole 40 mg capsule Take 1 capsule by mouth once daily. albuterol (PROVENTIL) 2.5 mg /3 mL (0.083 %) nebulizer solution Use 3 mL via nebulizer every 4 hours as needed for Wheezing/Shortness of Breath. Use over 5-15minutes. PROAIR HFA 90 mcg/actuation inhaler amLODIPine (NORVASC) 5 mg tablet take 1 tablet by mouth once daily (Patient taking differently: take 2 tablet by mouth once daily) multivitamin ORAL tablet Take one(1) tablet daily. chlorpheniramine maleate (CHLORPHEN SR) 12 mg TbER Take 12 mg by mouth every 12 hours. NYSTATIN ORAL Take 5 mL by mouth three times daily. apixaban (ELIQUIS) 5 mg tab tab(s) Take 10 mg by mouth twice daily. No current facility-administered medications on file prior to visit. FAMILY HISTORY Problem Relation Age of Onset - Hypertension Mother - other (renal stones [Other]) Father - Diabetes Son - other (GERD [Other]) Brother Social History Substance Use Topics - Smoking status: Never Smoker - Smokeless tobacco: Never Used - Alcohol use No BP 119/69 Pulse 68 Resp 18 Wt 111.1 kg (245 lb) BMI 34.17 kg/m? . OBJECTIVE: APPEARANCE Well appearing, alert, in no acute distress, well- hydrated, well nourished. and Obese EYES conjunctivae and sclerae normal, lids and lashes normal and lacrimal apparatus normal EARS External ears normal, canals clear NOSE/SINUS Nares normal. Septum midline. Mucosa normal. No drainage or sinus tenderness. THROAT normal, no erythema NECK Supple, no adenopathy; thyroid symmetric, normal size, no bruits HEART RRR with normal S1 and S2, no murmurs, no gallops, no JVD appreciated LUNG clear to auscultation ASSESSMENT: URI with bronchitis asthma--good control allergic rhinitis PLAN: rest, fluids, advance activity as able same medications mucinex DM 1-2 tsp every 4 hrs as needed for cough allergy referral per pt request. Previous allergy shots worked well. He is now off of singulair which did not seem to have benefit TEO Manjarrez MD, III MD Frank A Cebul, III MD 07/01/2018 2:59 PM Signed PLAN: rest, fluids, advance activity as able same medications mucinex DM 1-2 tsp every 4 hrs as needed for cough allergy referral Jeannette Mosqueda III MD Referring Provider: SELF [200] Allergies As of Date: 07/01/2018 Noted Allergy Reaction PROPOFOL (PF) 11/17/2014 14 - Other: See Comments Comments: Did'nt wake up VICODIN (HYDROCODONE-ACETAMINOPHE*02/10/2011 14 - Other: See Comments Comments: Constipation, extreme sleepiness ADHESIVE TAPE (ROSINS) 10/28/2009 CLARITIN (LORATADINE) 12/15/2008 5 - Intolerance Comments: did not help with s/s LATEX 09/26/2012 9 - Itching NAPROSYN (NAPROXEN) 11/26/2005 8 - GI Upset SIMVASTATIN 01/13/2013 14 - Other: See Comments Comments: leg muscle cramping TETRACYCLINE 11/26/2005 8 - GI Upset VIBRAMYCIN (DOXYCYCLINE CALCIUM) 11/26/2005 8 - GI Upset Date Reviewed: 07/01/2018 Reviewed by: Giana ([facility]) SARAH Orellana - Fully Assessed Reason for Visit: Chest Congestion [236] Cmt: x2 weeks, clear phlegm, severe headache Finger Pain [1583] Cmt: right pointer, continually getting worse Primary Visit Diagnosis:Viral upper respiratory tract infection [J06.9] Other Visit Diagnoses:Moderate persistent asthma, uncomplicated [J45.40] Seasonal allergic rhinitis due to pollen [J30.1] Order(s):CONSULT TO ALLERGY/IMMUNOLOGY [9426] Order #: [id number]: 1 Prescriptions as of 07/01/2018 Sig: MUCINEX ORAL Take by mouth as needed. TRIAMCINOLONE ACETONIDE 55 MC* Use 2 Sprays in the nose once* ATORVASTATIN 20 MG TABLET Take 1 tablet by mouth once d* FLUTICASONE 200 MCG-VILANTERO* Inhale 1 Inhalation as instru* OMEPRAZOLE 40 MG CAPSULE,RAVEN* Take 1 capsule by mouth once * ALBUTEROL SULFATE 2.5 MG/3 ML* Use 3 mL via nebulizer every * PROAIR HFA 90 MCG/ACTUATION A* AMLODIPINE 5 MG TABLET take 1 tablet by mouth once d* Patient taking differently: take 2 tablet by mouth once d* * MULTIVITAMIN TABLET Take one(1) tablet daily. 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] INVALID FOR*10/04/2014 Asthma [J45.909] INVALID FOR*08/16/2017 Cough syncope [R05] INVALID FOR* Severe persistent asthma without complication [*INVALID FOR*07/01/2018 Pulmonary embolus (HCC) [I26.99] INVALID FOR* 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 *INVALID FOR* Moderate persistent asthma, uncomplicated [J45.*INVALID FOR* Other instructions from your clinician: PLAN: rest, fluids, advance activity as able same medications mucinex DM 1-2 tsp every 4 hrs as needed for cough allergy referral Jeannette Mosqueda III MD Encounter Status:Closed by JEANNETTE MOSQUEDA III, MD on 07/01/18 D DIMER Collected: 05/29/2018 Status: F Source: [place] 2:26 PM [facility] REPOSITORY TYPE CODE TESTS RESULT OUT OF REFERENCE UNITS RANGE LAB DDMER <500 ng/mL FEU D dimer 410 Result Comment: The D-dimer assay can be used to exclude pulmonary embolism (PE) and deep vein thrombosis (DVT) in conjunction with a low pre-test probability. For patients with a suspected DVT, a D Dimer level below 500 ng/mL FEU has a negative predictive value of >=99.0%, a sensitivity of >=97.0%, and a specificity of >=35.8%. For patients with a tinsley spected PE, a D Dimer level below 500 ng/mL FEU has a negative predictive value of >=98.6%, a sensitivity of >=96.6%, and a specificity of >=38.9%. Performed By: #### DDMER #### [facility] [address] [place], [place] [address] XR CHEST 2V FRONTAL/LAT Observed: 05/29/2018 Status: F Source: [place] 9:35 AM [facility] REPOSITORY * * *Final Report* * * DATE OF EXAM: May 29 2018 9:35AM WOX [id number] - XR CHEST 2V FRONTAL/LAT / PROCEDURE REASON: multiple diagnoses * * * * Physician Interpretation * * * * EXAMINATION: CHEST RADIOGRAPH (2 VIEW FRONTAL and LATERAL) CLINICAL HISTORY: Severe persistent asthma with acute exacerbation Cough MQ: XC2_5 Comparison: None RESULT: Lines, tubes, and devices: None. Lungs and pleura: No consolidation. No lung mass. No pleural effusion. Cardiomediastinal silhouette: Normal cardiomediastinal silhouette. Other: None IMPRESSION: No acute radiographic abnormality. Digital Marketing Officer: LIANE Transcribe Date/Time: May 29 2018 9:42A Dictated by : MALGORZATA BUTLER MD This examination was interpreted and the report reviewed and electronically signed by: MALGORZATA BUTLER MD on May 29 2018 9:43AM EST [id number] Observed: 05/29/2018 Status: COMPLETED Source: [place] 9:29 AM [facility] REPOSITORY HNO ID: [id number] Author: Nisreen Tellez (Rt) Geovanny Cam Service: (none) Author Type: Pin Sorter And Bagger Type: Progress Notes Filed: 05/29/2018 9:35 AM Note Text: Radiology Service Progress Note PATIENT NAME: Dinesh Cao DATE OF SERVICE: May 29, 2018 TIME: 9:29 AM PATIENT IDENTITY VERIFICATION COMPLETED USING TWO (2) METHODS: Patient confirmed name verbally and Date of . PATIENT GENDER DATA: Male PATIENT RELEVANT IMPLANT DATA REVIEWED: Not Applicable RADIOLOGY DEPARTMENT: General X-ray: Exam(s) Completed: Chest X-Ray PERIPHERAL IV DATA: Not applicable SIGNED BY: RT Layo May 29, 2018 9:29 AM CNOV Observed: 05/29/2018 Status: COMPLETED Source: [place] 9:00 AM [facility] REPOSITORY Office Visit (FAMPWS) DINESH CAO ([id number]) 1960 M Date Time Provider Department 05/29/18 9:00 AM RIVERA VAZQUEZ ([facility]) FAMPWS During your visit today, we recorded the following information about you: Temperature Pulse Blood pressure Weight 96.1 degrees 68/minute 128/72 110.7 kg Rivera Vazquez APRN.CNP 05/29/2018 9:15 AM Addendum Chief Complaint Patient presents with: Cough: SOB - x 1 week HPI Dinesh Cao is a 58 year old male who presents here today for Above Complaints. Patient presents to the office today for evaluation of cough, shortness of breath. Duration has been 1 week. Patient has severe persistent asthma that is followed by pulmonology at [facility], Dr. Doyle. current asthma regimen includes Nasacort nasal inhaler, brachial lipped 200?25 micrograms/dose inhalation once daily, albuterol nebulizer as needed and pro- air inhaler for rescue. Of note, patient has had multiple urgent care and office visits for complaints of either bacterial sinusitis, severe persistent asthma with exacerbation, persistent cough within the last 2 months. He's been treated with prednisone bursts multiple times. Has had coughing fits that have caused him to be lightheaded. Cough has been productive, mainly last week but has been developed into a dry cough. Some chest tightness with breathing, some shortness of breath. No fevers or chills. Some sinus pressure, but no other eye, ear, nose or throat complaints. Did have a tooth removed last week and states that he got a blood clot last year after ankle surgery. States that symptoms that he is experiencing now is the same as before. Did call the venetian blind washer yesterday, and was instructed to go to the ER for concerns for a PE after the patient stated that he had similar symptoms. Past medical history, appointments, medications, allergies reviewed. Previous Medical History PAST MEDICAL HISTORY Diagnosis Date - Achilles tendinitis 02/10/2011 - Allergic rhinitis 02/27/2012 - ASHD (arteriosclerotic heart disease) 09/13/2011 - Asthma 11/03/2014 - Chronic cough - Cough syncope syndrome - Esophageal reflux Gastroesophageal reflux - Essential hypertension, benign - GERD (gastroesophageal reflux disease) - Hiatal hernia 06/17/2015 [facility] - see scanned documents - Hyperlipidemia LDL goal < 100 01/21/2013 - Peripheral vascular disease (HCC) - Pulmonary embolus (HCC) 09/23/2017 left - Severe persistent asthma with acute exacerbation - Syncope 11/06/2017 and collapse Previous Surgical History PAST SURGICAL HISTORY Procedure Laterality Date - APPENDECTOMY 1988 - COLONOSCOP W/ OR W/O [facility] SPEC 11/17/14 Colonoscopy - EGD W/O OR W/BRUSH/WASH 11/17/14 EGD - KNEE SCOPE,DIAGNOSTIC 08/31/2009 Arthroscopy, knee right [facility]. [facility] - LAPAROSCOPIC CHOLEYCYSTECTOMY 1999 Cholecystectomy, lap - NASAL SEPTUM REPOS W STABILIZATION 06/2010 - PAST SURGICAL HISTORY OF ruptured valve on back of right knee - PAST SURGICAL HISTORY OF 08/31/09 repair of a torn mansicus - REVISE SECONDARY VARICOSITY 2003 Varicose Vein Surgery, BLE - VASECTOMY 1999 Family History FAMILY HISTORY Problem Relation Age of Onset - Hypertension Mother - other (renal stones [Other]) Father - Diabetes Son - other (GERD [Other]) Brother Patient Allergies ALLERGIES Allergen Reactions - Propofol (Pf) Other: See Comments Did'nt wake up - Vicodin [Hydrocodon* Other: See Comments Constipation, extreme sleepiness - Adhesive Tape (Georgina* - Claritin [Loratadin* Intolerance did not help with s/s - Latex Itching - Naprosyn [Naproxen] GI Upset - Simvastatin Other: See Comments leg muscle cramping - Tetracycline GI Upset - Vibramycin [Doxycyc* GI Upset Current Medications Current Outpatient Prescriptions on File Prior to Visit: triamcinolone acetonide (NASACORT) 55 mcg nasal inhaler Use 2 Sprays in the nose once daily. chlorpheniramine maleate (CHLORPHEN SR) 12 mg TbER Take 12 mg by mouth every 12 hours. NYSTATIN ORAL Take 5 mL by mouth three times daily. atorvastatin (LIPITOR) 20 mg tablet Take 1 tablet by mouth once daily. fluticasone-vilanterol (BREO ELLIPTA) 200-25 mcg/dose inhaler Inhale 1 Inhalation as instructed once daily. Omeprazole 40 mg capsule Take 1 capsule by mouth once daily. apixaban (ELIQUIS) 5 mg tab tab(s) Take 10 mg by mouth twice daily. albuterol (PROVENTIL) 2.5 mg /3 mL (0.083 %) nebulizer solution Use 3 mL via nebulizer every 4 hours as needed for Wheezing/Shortness of Breath. Use over 5-15minutes. PROAIR HFA 90 mcg/actuation inhaler amLODIPine (NORVASC) 5 mg tablet take 1 tablet by mouth once daily (Patient taking differently: take 2 tablet by mouth once daily) multivitamin ORAL tablet Take one(1) tablet daily. No current facility-administered medications on file prior to visit. 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 Reviewed relevant PMHx, PSHx, Social Hx, current medications and allergies. EXAM: BP 128/72 Pulse 68 Temp (!) 35.6 ?C (96.1 ?F) (Tympanic) Wt 110.7 kg (244 lb) SpO2 98% BMI 34.03 kg/m? General Appearance: Well appearing, alert, in no acute distress, well-hydrated, well nourished.. Head: Normocephalic, no masses, lesions, tenderness or abnormalities. Eyes: Anicteric sclera. Pupils are equally round and reactive to light. Extraocular movements are intact. . Ears: External ears normal, canals clear. Nose/Sinuses: Nares normal, septum midline, mucosa normal, no drainage or sinus tenderness. Oropharynx: Lips, mucosa, and tongue normal, teeth and gums normal, oropharynx normal. Neck: Supple, no adenopathy; thyroid symmetric, normal size, no bruits. Lungs: Lungs clear to auscultation. No wheezing, rhonchi, rales, Cough is present. Heart: RRR without murmur, gallop, or rubs. No ectopy. Extremities: No deformities, edema. Health Maintenance List HEPATITIS C SCREENING due on 2003 INFLUENZA(1) due on 05/03/2018 STATIN MED ADHERENCE due on 06/02/2018 STEROID INHALER PRESCRIBED due on 06/02/2018 STEROID INHALER ADHERENCE due on 06/02/2018 LDL CHOLESTEROL due on 02/20/2019 ANNUAL PCP TEAM CHRONIC DISEASE VISIT due on 05/09/2019 BP CONTROLLED (<130/80) due on 05/09/2019 DIABETES SCREEN due on 02/20/2021 LIPID SCREEN due on 02/20/2023 COLORECTAL CANCER SCREENING,SEE MODIFIER due on 11/17/2024 DTAP,TDAP,TD(3 - Tdap) due on 02/15/2025 PROSTATE CANCER SCREENING DISCUSSION Completed Data reviewed External encounter with venetian blind washer from May 14, 2018 reviewed. Component Latest Ref Rng AND Units 02/20/2018 Glucose 74 - 99 mg/dL 89 BUN 9 - 24 mg/dL 9 Creatinine 0.73 - 1.22 mg/dL 0.98 Sodium 136 - 144 mmol/L 143 Potassium 3.7 - 5.1 mmol/L 3.9 Chloride 97 - 105 mmol/L 103 CO2 22 - 30 mmol/L 29 Anion Gap 9 - 18 mmol/L 11 Calcium 8.5 - 10.2 mg/dL 9.1 eGFR- >60 eGFR-All Other Races . >60 Cholesterol, Total <200 mg/dL 161 Triglyceride <150 mg/dL 77 HDL Cholesterol >39 mg/dL 52 LDL Cholesterol <100 mg/dL 94 Non HDL Cholesterol <130 mg/dL 109 Fasting Time hrs 10 VLDL Cholesterol <30 mg/dL 15 TC:HDL Ratio <5.10 3.10 LDL:HDL Ratio <2.54 1.81 ASSESSMENT/PLAN: 1. Severe persistent asthma with acute exacerbation - ICD9: 493.92, ICD10: J45.51 (primary diagnosis) Severe persistent Asthma acute excacerbation no respiratory distress - Continue current meds - Begin prednisone burst. - Avoidance of triggers recommended - XR CHEST 2V FRONTAL/LAT - PREDNISONE 20 MG TABLET 2. Cough - ICD9: 786.2, ICD10: R05 - likely related to #1. We will get an x-ray to further investigate. 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 - XR CHEST 2V FRONTAL/LAT 3. SOB (shortness of breath) - ICD9: 786.05, ICD10: R06.02 - likely related to #1. We will get an x-ray to further investigate. - XR CHEST 2V FRONTAL/LAT Patient is afebrile today, not tachycardic or does not have a low-grade temp. We discussed the likely does not have a PE. We'll get a chest x-ray to start with prednisone and I discussed the need for the patient to follow with pulmonary to discuss the knees and start daily prednisone as he has had multiple encounters for asthma exacerbation in this office. I also discussed the need easier to the emergency room if his symptoms get worse in the form of increased shortness of breath, chest tightness, syncope. Patient verbalized understanding. Rivera Vazquez APRN.B[employer]INGUAL LOAN PROCESSOR Referring Provider: SELF [[id number]] Allergies As of Date: 05/29/2018 Noted Allergy Reaction PROPOFOL (PF) 11/17/2014 14 - Other: See Comments Comments: Did'nt wake up VICODIN (HYDROCODONE-ACETAMINOPHE*02/10/2011 14 - Other: See Comments Comments: Constipation, extreme sleepiness ADHESIVE TAPE (ROSINS) 10/28/2009 CLARITIN (LORATADINE) 12/15/2008 5 - Intolerance Comments: did not help with s/s LATEX 09/26/2012 9 - Itching NAPROSYN (NAPROXEN) 11/26/2005 8 - GI Upset SIMVASTATIN 01/13/2013 14 - Other: See Comments Comments: leg muscle cramping TETRACYCLINE 11/26/2005 8 - GI Upset VIBRAMYCIN (DOXYCYCLINE CALCIUM) 11/26/2005 8 - GI Upset Date Reviewed: 05/29/2018 Reviewed by: Ameena Alexander Care Administrative Tech - Fully Assessed Reason for Visit: Cough [28] Cmt: SOB - x 1 week Reason For Visit History Recorded Primary Visit Diagnosis:Severe persistent asthma with acute exacerbation [J45.51] Other Visit Diagnoses:Cough [R05] SOB (shortness of breath) [R06.02] Order(s):XR CHEST 2V FRONTAL/LAT [[id number]] Order #: [id number] FUTURE predniSONE (DELTASONE) 20 mg tabletTake 2 tablets by mouth once daily for 5 days. Take daily with food.Disp: 10 tabletRfl: 0 Prescriptions as of 05/29/2018 Sig: TRIAMCINOLONE ACETONIDE 55 MC* Use 2 Sprays in the nose once* CHLORPHENIRAMINE ER 12 MG TAB* Take 12 mg by mouth every 12 * NYSTATIN ORAL Take 5 mL by mouth three time* ATORVASTATIN 20 MG TABLET Take 1 tablet by mouth once d* FLUTICASONE 200 MCG-VILANTERO* Inhale 1 Inhalation as instru* OMEPRAZOLE 40 MG CAPSULE,RAVEN* Take 1 capsule by mouth once * APIXABAN 5 MG TABLET Take 10 mg by mouth twice mukund* ALBUTEROL SULFATE 2.5 MG/3 ML* Use 3 mL via nebulizer every * PROAIR HFA 90 MCG/ACTUATION A* AMLODIPINE 5 MG TABLET take 1 tablet by mouth once d* Patient taking differently: take 2 tablet by mouth once d* * MULTIVITAMIN TABLET Take one(1) tablet daily. 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 Take daily with food. Disposition: Return if symptoms worsen or fail to improve. Follow-up and Disposition History Recorded Encounter Status:Closed by RIVERA VAZQUEZ CNP on 05/29/18 PROGRESS Observed: 05/29/2018 Status: COMPLETED Source: [place] 8:56 AM [facility] [place] [facility] ID: [id number] Author: Rivera Vazquez Service: (none) Author Type: Nurse Practitioner Type: Progress Notes Filed: 05/29/2018 9:15 AM Note Text: Chief Complaint Patient presents with: Cough: SOB - x 1 week HPI Dinesh Cao is a 58 year old male who presents here today for Above Complaints. Patient presents to the office today for evaluation of cough, shortness of breath. Duration has been 1 week. Patient has severe persistent asthma that is followed by pulmonology at [facility], Dr. Doyle. current asthma regimen includes Nasacort nasal inhaler, brachial lipped 200?25 micrograms/dose inhalation once daily, albuterol nebulizer as needed and pro-air inhaler for rescue. Of note, patient has had multiple urgent care and office visits for complaints of either bacterial sinusitis, severe persistent asthma with exacerbation, persistent cough within the last 2 months. He's been treated with prednisone bursts multiple times. Has had coughing fits that have caused him to be lightheaded. Cough has been productive, mainly last week but has been developed into a dry cough. Some chest tightness with breathing, some shortness of breath. No fevers or chills. Some sinus pressure, but no other eye, ear, nose or throat complaints. Did have a tooth removed last week and states that he got a blood clot last year after ankle surgery. States that symptoms that he is experiencing now is the same as before. Did call the venetian blind washer yesterday, and was instructed to go to the ER for concerns for a PE after the patient stated that he had similar symptoms. Past medical history, appointments, medications, allergies reviewed. Previous Medical History PAST MEDICAL HISTORY Diagnosis Date - Achilles tendinitis 02/10/2011 - Allergic rhinitis 02/27/2012 - ASHD (arteriosclerotic heart disease) 09/13/2011 - Asthma 11/03/2014 - Chronic cough - Cough syncope syndrome - Esophageal reflux Gastroesophageal reflux - Essential hypertension, benign - GERD (gastroesophageal reflux disease) - Hiatal hernia 06/17/2015 [facility] - see scanned documents - Hyperlipidemia LDL goal < 100 01/21/2013 - Peripheral vascular disease (HCC) - Pulmonary embolus (HCC) 09/23/2017 left - Severe persistent asthma with acute exacerbation - Syncope 11/06/2017 and collapse Previous Surgical History PAST SURGICAL HISTORY Procedure Laterality Date - APPENDECTOMY 1988 - COLONOSCOP W/ OR W/O [facility] SPEC 11/17/14 Colonoscopy - EGD W/O OR W/BRUSH/WASH 11/17/14 EGD - KNEE SCOPE,DIAGNOSTIC 08/31/2009 Arthroscopy, knee right [facility] - LAPAROSCOPIC CHOLEYCYSTECTOMY 1999 Cholecystectomy, lap - NASAL SEPTUM REPOS W STABILIZATION 06/2010 - PAST SURGICAL HISTORY OF ruptured valve on back of right knee - PAST SURGICAL HISTORY OF 08/31/09 repair of a torn mansicus - REVISE SECONDARY VARICOSITY 2003 Varicose Vein Surgery, BLE - VASECTOMY 1999 Family History FAMILY HISTORY Problem Relation Age of Onset - Hypertension Mother - other (renal stones [Other]) Father - Diabetes Son - other (GERD [Other]) Brother Patient Allergies ALLERGIES Allergen Reactions - Propofol (Pf) Other: See Comments Did'nt wake up - Vicodin [Hydrocodon* Other: See Comments Constipation, extreme sleepiness - Adhesive Tape (Georgina* - Claritin [Loratadin* Intolerance did not help with s/s - Latex Itching - Naprosyn [Naproxen] GI Upset - Simvastatin Other: See Comments leg muscle cramping - Tetracycline GI Upset - Vibramycin [Doxycyc* GI Upset Current Medications Current Outpatient Prescriptions on File Prior to Visit: triamcinolone acetonide (NASACORT) 55 mcg nasal inhaler Use 2 Sprays in the nose once daily. chlorpheniramine maleate (CHLORPHEN SR) 12 mg TbER Take 12 mg by mouth every 12 hours. NYSTATIN ORAL Take 5 mL by mouth three times daily. atorvastatin (LIPITOR) 20 mg tablet Take 1 tablet by mouth once daily. fluticasone-vilanterol (BREO ELLIPTA) 200-25 mcg/dose inhaler Inhale 1 Inhalation as instructed once daily. Omeprazole 40 mg capsule Take 1 capsule by mouth once daily. apixaban (ELIQUIS) 5 mg tab tab(s) Take 10 mg by mouth twice daily. albuterol (PROVENTIL) 2.5 mg /3 mL (0.083 %) nebulizer solution Use 3 mL via nebulizer every 4 hours as needed for Wheezing/Shortness of Breath. Use over 5-15minutes. PROAIR HFA 90 mcg/actuation inhaler amLODIPine (NORVASC) 5 mg tablet take 1 tablet by mouth once daily (Patient taking differently: take 2 tablet by mouth once daily) multivitamin ORAL tablet Take one(1) tablet daily. No current facility-administered medications on file prior to visit. 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 Reviewed relevant PMHx, PSHx, Social Hx, current medications and allergies. EXAM: BP 128/72 Pulse 68 Temp (!) 35.6 ?C (96.1 ?F) (Tympanic) Wt 110.7 kg (244 lb) SpO2 98% BMI 34.03 kg/m? General Appearance: Well appearing, alert, in no acute distress, well-hydrated, well nourished.. Head: Normocephalic, no masses, lesions, tenderness or abnormalities. Eyes: Anicteric sclera. Pupils are equally round and reactive to light. Extraocular movements are intact. . Ears: External ears normal, canals clear. Nose/Sinuses: Nares normal, septum midline, mucosa normal, no drainage or sinus tenderness. Oropharynx: Lips, mucosa, and tongue normal, teeth and gums normal, oropharynx normal. Neck: Supple, no adenopathy; thyroid symmetric, normal size, no bruits. Lungs: Lungs clear to auscultation. No wheezing, rhonchi, rales, Cough is present. Heart: RRR without murmur, gallop, or rubs. No ectopy. Extremities: No deformities, edema. Health Maintenance List HEPATITIS C SCREENING due on 2003 INFLUENZA(1) due on 05/03/2018 STATIN MED ADHERENCE due on 06/02/2018 STEROID INHALER PRESCRIBED due on 06/02/2018 STEROID INHALER ADHERENCE due on 06/02/2018 LDL CHOLESTEROL due on 02/20/2019 ANNUAL PCP TEAM CHRONIC DISEASE VISIT due on 05/09/2019 BP CONTROLLED (<130/80) due on 05/09/2019 DIABETES SCREEN due on 02/20/2021 LIPID SCREEN due on 02/20/2023 COLORECTAL CANCER SCREENING,SEE MODIFIER due on 11/17/2024 DTAP,TDAP,TD(3 - Tdap) due on 02/15/2025 PROSTATE CANCER SCREENING DISCUSSION Completed Data reviewed External encounter with venetian blind washer from May 14, 2018 reviewed. Component Latest Ref Rng AND Units 02/20/2018 Glucose 74 - 99 mg/dL 89 BUN 9 - 24 mg/dL 9 Creatinine 0.73 - 1.22 mg/dL 0.98 Sodium 136 - 144 mmol/L 143 Potassium 3.7 - 5.1 mmol/L 3.9 Chloride 97 - 105 mmol/L 103 CO2 22 - 30 mmol/L 29 Anion Gap 9 - 18 mmol/L 11 Calcium 8.5 - 10.2 mg/dL 9.1 eGFR- >60 eGFR-All Other Races . >60 Cholesterol, Total <200 mg/dL 161 Triglyceride <150 mg/dL 77 HDL Cholesterol >39 mg/dL 52 LDL Cholesterol <100 mg/dL 94 Non HDL Cholesterol <130 mg/dL 109 Fasting Time hrs 10 VLDL Cholesterol <30 mg/dL 15 TC:HDL Ratio <5.10 3.10 LDL:HDL Ratio <2.54 1.81 ASSESSMENT/PLAN: 1. Severe persistent asthma with acute exacerbation - ICD9: 493.92, ICD10: J45.51 (primary diagnosis) Severe persistent Asthma acute excacerbation no respiratory distress - Continue current meds - Begin prednisone burst. - Avoidance of triggers recommended - XR CHEST 2V FRONTAL/LAT - PREDNISONE 20 MG TABLET 2. Cough - ICD9: 786.2, ICD10: R05 - likely related to #1. We will get an x-ray to further investigate. 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 - XR CHEST 2V FRONTAL/LAT 3. SOB (shortness of breath) - ICD9: 786.05, ICD10: R06.02 - likely related to #1. We will get an x-ray to further investigate. - XR CHEST 2V FRONTAL/LAT Patient is afebrile today, not tachycardic or does not have a low-grade temp. We discussed the likely does not have a PE. We'll get a chest x-ray to start with prednisone and I discussed the need for the patient to follow with pulmonary to discuss the knees and start daily prednisone as he has had multiple encounters for asthma exacerbation in this office. I also discussed the need easier to the emergency room if his symptoms get worse in the form of increased shortness of breath, chest tightness, syncope. Patient verbalized understanding. Rivera Vazquez APRN.[facility] PULMONARY VISIT REPORT Observed: 05/14/2018 Status: F Source: [place] 8:13 AM [facility] of [address] [place] [address] OFFICE VISIT Date of Service: 05/14/18 MR#: [id number] Acct: [id number] Name: DINESH CAO Rep #: [id number] : 1960 Provider: Dewayne Doyle MD Age/Sex: 57/M Location: [facility].PMW Status: Signed Assessment AND Plan Problems 1. Severe persistent asthma with acute exacerbation J45.51 2. Pulmonary embolism on left I26.99 3. Chronic cough R05 Plan Patient appears to be an exacerbation at this time. This is likely secondary to failure to continue with maintenance inhaler. Patient is not to be any signs or symptoms of systemic infection. After review of the risks, benefits alternatives, patient has agreed to a 5 day burst of prednisone. Will hold off on antibiotics unless patient develops constitutional symptoms. Patient will continue with anticoagulation. Patient to call if condition deteriorates further. Prednisone burst. Continue baseline medications. Albuterol as needed. Medications New: Plan Detail Follow Up 3 Months ([facility]) HPI 3 M FU: Chief Complaint: Increased cough Details: There is okay soin and out of the car frquently he had any problems with Brio saw. still using breo. cough much worse off the breo. albuterol daily now. Patient is a 57-year-old male, currently under care of Dr. Mosqueda, who presents for evaluation secondary to increasing cough. Since last visit, patient denies any ER visits, hospitalizations or prednisone burst. Patient feels he is subjectively worse compared to previous. Patient did say that he called [facility] before weekend and was told that his Brio was out of stock. Patient estimates that he was off of medications for 3 days waiting for resupply. Since that time he has noted significant increase in his cough. This is nonproductive in nature, but has been occurring throughout the day. Patient estimates he has been using his albuterol on a daily basis, which is significantly higher than his baseline. Patient has noted some increase in clear to white sputum. Patient is denying any nasal congestion, fever, chills, nausea or vomiting. Patient has not noted any rash. No scleral injection is been reported. Patient denies any cyanosis or syncope. Intake Vital Signs05/14/18 Height 5 ft 11 in 05/14/18 Weight: 111.584 kg Intake Visit Reasons: 3 M FU Accompanied by: Self Allergies povidone-iodine [From Betadine] Adverse Reaction (Severe, Verified 05/14/18 07:42) Hives soap [From Betadine] Adverse Reaction (Severe, Verified 05/14/18 07:42) Hives adhesive tape Adverse Reaction (Verified 05/14/18 07:42) Rash benzoin Adverse Reaction (Verified 05/14/18 07:42) Rash doxycycline calcium [From Vibramycin] Adverse Reaction (Verified 05/14/18 07:42) constipation doxycycline hyclate [From Vibramycin] Adverse Reaction (Verified 05/14/18 07:42) constpation doxycycline monohydrate [From Vibramycin] Adverse Reaction (Verified 05/14/18 07:42) constipation hydrocodone bitartrate [From Vicodin] Adverse Reaction (Verified 05/14/18 07:42) constipation tetracycline [Tetracycline] Adverse Reaction (Verified 05/14/18 07:42) constipation Medications Atorvastatin Calcium [Lipitor] 20 mg PO QHS 06/17/15 [History Confirmed 05/14/18] Multivitamins,Therapeutic [Multivitamin] 1 tab PO DAILY 06/17/15 [History Confirmed 05/14/18] Acetaminophen [Tylenol Extra Strength] 1,000 mg PO BID 09/12/17 [History Confirmed 05/14/18] albuterol sulfate HFA 90 mcg/actuation aerosol inhaler 2 puff INHALATION Q6H PRN 09/25/17 [History Confirmed 05/14/18] omeprazole 20 mg tablet,delayed release 20 mg PO QDAY tab 09/25/17 [History Confirmed 05/14/18] amlodipine 10 mg tablet 10 mg PO QDAY #90 tab 09/27/17 [Rx Confirmed 05/14/18] apixaban 5 mg tablet 5 mg PO BID #180 tab 09/27/17 [Rx Confirmed 05/14/18] albuterol sulfate 2.5 mg/3 mL (0.083 %) solution for nebulization 2.5 mg INHALATION Q4H PRN ml 11/05/17 [History Confirmed 05/14/18] fluticasone 200 mcg-vilanterol 25 mcg/dose powder for inhalation 1 inh INHALATION Q24H #60 ea 11/29/17 [Rx Confirmed 05/14/18] montelukast 10 mg tablet 10 mg PO QPM #30 tab 01/29/18 [Rx Confirmed 05/14/18] chlorpheniramine 4 mg tablet 4 mg PO Q6H 03/14/18 [History Confirmed 05/14/18] prednisone 10 mg tablet 10 mg PO QDAY #20 tab 05/14/18 [Rx Confirmed 05/14/18] [facility] Medical History Pulmonary embolism on left (Chronic) Peripheral vascular disease (Chronic) Asthma, severe persistent (Chronic) GERD (gastroesophageal reflux disease) (Chronic) Aspiration pneumonia of right lower lobe (Acute) Chronic cough (Chronic) Hypersomnia (Acute) PND (paroxysmal nocturnal dyspnea) (Acute) Benign essential hypertension (Chronic) Syncope and collapse (Acute) Acute left lower lobe peripheral PE (Inactive) GERD (gastroesophageal reflux disease) (Inactive) Partially treated aspiration pneumonia (Inactive) 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) Surgical History History of sinus surgery (Resolved) History of vein stripping (Resolved) History of knee surgery (Resolved) History of vasectomy (Resolved) Hx of appendectomy (Resolved) History of cholecystectomy (Resolved) Family History Brother Hypertension Social History Smoking Status: Never smoker second hand exposure: No alcohol intake: never substance use type: does not use Review of Systems Const CONSTITUTIONAL: Negative anorexia, body ache, chills, daytime sleepiness, fever(s), night sweats, oral thrush, stops breathing during sleep, weight loss, sleeping in chair, fatigue, weight loss, weight gain, frequent colds, seasonal allergies, other, headache(s) or orthopnea EETM Ear Nose Throat Mouth: Positive hearing normal; negative hard of hearing, hoarseness, dry mouth in morning, change in vision, itchy eyes, eye pain, swallowing Difficulty, ear pain, nose bleed, headache(s), mouth pain, nasal congestion, nasal discharge, post nasal drip, sinus pain, sinus pressure, sore throat or other Cardio Cardiovascular: Negative chest pain, chest pain at rest, chest pain with activity, irregular heart rhythm, edema, shortness of breath when lying down, palpitations, murmur or other Resp Respiratory: Positive as per HPI, wheezing, cough cough: Positive productive color: Positive thick and clear and chest tightness; negative shortness of breath, pain with cough, chest congestion, pain on inspiration, inhalers, increase use of rescue inhalers, snoring, apnea or other Gastro Gastrointestional: Negative bloody stools, change in appetite, difficulty swallowing, reflux, hematemesis, melena stool, loose stool, constipation or other Genitourinary: Negative blood in urine, nocturia, pain with urination or other Musc Musculoskeletal: Negative body pain, back pain, neck pain or other Skin/Breast Skin/Breast: Negative dry skin, itching, rash, unusual bruising, breast lump or other Neuro Neurological: Negative restless legs, confusion, weakness or other Psych Psychocological: Negative abnormal sleep pattern, anxiety, thoughts of hurting self/others, hopelessness or other Lymph Lymphatic: Negative easy bleeding, easy bruising, swollen lymph nodes or other Exam Const Constitutional: Positive conversant, cooperative, in no acute respiratory distress, healthy appearing, well developed, well nourished, good hygiene and obese; negative wearing supplemental oxygen Head Head: Positive normocephalic and atraumatic; negative cyanosis of lips/distal nose, frontal sinus tenderness or maxillary sinus tenderness Eyes Eye: Positive clear conjunctiva; negative nystagmus, scleral abnormality or cataract present Ears Ear: Positive hearing normal and external ears normal; negative hard of hearing Nose Nose: Positive external nose normal, septum normal and no nasal discharge; negative epistaxis or nasal polyp Mouth Mouth: Positive oral mucosae normal, no lesions and posterior oropharynx is adequate; negative post nasal drip, malodorous breath or oral thrush present Mallampati Score: II: Mallampati Score Neck Neck: Positive normal visual inspection, full ROM and trachea midline; negative lymphadenopathy or JVD Chest Wall Chest: Positive normal inspection of the chest and symmetric chest movement; negative crepitus or tenderness Resp lung sounds: Positive clear to auscultation, good air exchange, wheeze present on forced exhalation and prolonged expiratory time; negative wheezes, rhonchi, rales, use of accessory muscles or dullness to percussion Cardio Cardiac: Positive regular rate, regular rhythm, S1 normal and S2 normal; negative murmur, rub or gallop GI GI: Positive normal to inspection, normal bowel sounds and obese; negative distended, ascites or epigastric tenderness Genitourinary: Positive deferred Musc Musculoskeletal: Positive steady gait; negative using an assistive device for ambulation, kyphosis or scoliosis Skin Pulmonary Skin Exam: Positive intact; negative rash, lesion, ulcers, erythema or dermal atrophy Pulses Pulse: Yes radial pulses present Extremities Extremities: Yes capillary refill normal, No clubbing, No cyanosis, No edema, No stasis dermatitis Neuro Neurologic: Yes conversant, Yes no focal neuro deficits, Yes normal concentration, Yes understands questions, Yes cooperative, Yes normal cognition, Yes normal coordination Lymph Lymphatic: No lymphadenopathy Psych Appearance: Positive grossly normal Mental Status: Positive mental status grossly normal Mood: Positive congruent mood Affect: Positive normal affect Coding Level of Care Code Off vis,est,level 4 Diagnoses Severe persistent asthma with acute exacerbation J45.51 Asthma complication type: with acute exacerbation Pulmonary embolism on left I26.99 Chronic cough R05 05/14/18 0813 <Electronically signed by Dewayne Doyle MD> Date Dewayne Doyle MD Cosigner Signature: Date (if applicable) CC: Jeannette Mosqueda III, MD CNOV Observed: 05/09/2018 Status: COMPLETED Source: [place] 8:00 AM [facility] REPOSITORY Office Visit (FAMPWS) DINESH CAO ([id number]) 1960 M Date Time Provider Department 05/09/18 8:00 AM RIVERA VAZQUEZ ([facility]) FAMWS During your visit today, we recorded the following information about you: Temperature Pulse Blood pressure Weight 96.3 degrees 64/minute 128/68 113.9 kg Rivera Vazquez APRN.CNP 05/09/2018 8:09 AM Addendum Chief Complaint Patient presents with: Cough HPI Dinesh Cao is a 57 year old male who presents here today for Above Complaints. Patient presents to the office for one week follow up from [facility]. Had a persistent cough after being without Breo elliptal inhaler for a few weeks. He was given prednisone burst after he had a normal chest x-ray on 05/05/2018. At this time, he did get his breo elliptal back on Saturday. No fevers or chills. No shortness of breath. No chest pain. At this time, he does not have a cough. States that humidity is his trigger. No eye, ear or throat complaints. Today, he does finish the prednisone taper. Does have some sinus congestion, sinus pressure, headache. Has not taken any mucinex this week. Has been using tylenol as needed. Past medical history, appointments, medications, allergies reviewed. Previous Medical History PAST MEDICAL HISTORY Diagnosis Date - Achilles tendinitis 02/10/2011 - Allergic rhinitis 02/27/2012 - Allergic rhinitis, cause unspecified - ASHD (arteriosclerotic heart disease) 09/13/2011 - Asthma 11/03/2014 - Cough syncope syndrome - Esophageal reflux Gastroesophageal reflux - Essential hypertension, benign - GERD (gastroesophageal reflux disease) - Hiatal hernia 06/17/2015 [facility] - see scanned documents - Hyperlipidemia LDL goal < 100 01/21/2013 - Peripheral vascular disease (HCC) - Pulmonary embolism on left (HCC) - Pulmonary embolus (HCC) 09/23/2017 left - Severe persistent asthma without complication - Severe persistent asthma, uncomplicated - Syncope 11/06/2017 and collapse Previous Surgical History PAST SURGICAL HISTORY Procedure Laterality Date - APPENDECTOMY 1988 - COLONOSCOP W/ OR W/O [facility] SPEC 11/17/14 Colonoscopy - EGD W/O OR W/BRUSH/WASH 11/17/14 EGD - KNEE SCOPE,DIAGNOSTIC 08/31/2009 Arthroscopy, knee right [facility] - LAPAROSCOPIC CHOLEYCYSTECTOMY 1999 Cholecystectomy, lap - NASAL SEPTUM REPOS W STABILIZATION 06/2010 - PAST SURGICAL HISTORY OF ruptured valve on back of right knee - PAST SURGICAL HISTORY OF 08/31/09 repair of a torn mansicus - REVISE SECONDARY VARICOSITY 2003 Varicose Vein Surgery, BLE - VASECTOMY 1999 Family History FAMILY HISTORY Problem Relation Age of Onset - Hypertension Mother - other (renal stones [Other]) Father - Diabetes Son - other (GERD [Other]) Brother Patient Allergies ALLERGIES Allergen Reactions - Propofol (Pf) Other: See Comments Did'nt wake up - Vicodin [Hydrocodon* Other: See Comments Constipation, extreme sleepiness - Adhesive Tape (Georgina* - Claritin [Loratadin* Intolerance did not help with s/s - Latex Itching - Naprosyn [Naproxen] GI Upset - Simvastatin Other: See Comments leg muscle cramping - Tetracycline GI Upset - Vibramycin [Doxycyc* GI Upset Current Medications Current Outpatient Prescriptions on File Prior to Visit: predniSONE (DELTASONE) 20 mg tablet Take 2 tablets by mouth once daily for 5 days. triamcinolone acetonide (NASACORT) 55 mcg nasal inhaler Use 2 Sprays in the nose once daily. chlorpheniramine maleate (CHLORPHEN SR) 12 mg TbER Take 12 mg by mouth every 12 hours. NYSTATIN ORAL Take 5 mL by mouth three times daily. atorvastatin (LIPITOR) 20 mg tablet Take 1 tablet by mouth once daily. fluticasone-vilanterol (BREO ELLIPTA) 200-25 mcg/dose inhaler Inhale 1 Inhalation as instructed once daily. Omeprazole 40 mg capsule Take 1 capsule by mouth once daily. apixaban (ELIQUIS) 5 mg tab tab(s) Take 10 mg by mouth twice daily. albuterol (PROVENTIL) 2.5 mg /3 mL (0.083 %) nebulizer solution Use 3 mL via nebulizer every 4 hours as needed for Wheezing/Shortness of Breath. Use over 5-15minutes. PROAIR HFA 90 mcg/actuation inhaler amLODIPine (NORVASC) 5 mg tablet take 1 tablet by mouth once daily (Patient taking differently: take 2 tablet by mouth once daily) multivitamin ORAL tablet Take one(1) tablet daily. No current facility-administered medications on file prior to visit. 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 Reviewed relevant PMHx, PSHx, Social Hx, current medications and allergies. EXAM: BP 128/68 Pulse 64 Temp (!) 35.7 ?C (96.3 ?F) (Tympanic) Wt 113.9 kg (251 lb) SpO2 98% BMI 35.01 kg/m? General Appearance: Well appearing, alert, in no acute distress, well-hydrated, well nourished.. Head: Normocephalic, no masses, lesions, tenderness or abnormalities. Eyes: Anicteric sclera. Pupils are equally round and reactive to light. Extraocular movements are intact. . Ears: External ears normal, canals clear. Nose/Sinuses: Nares normal, septum midline, mucosa normal, no drainage. Minimal frontal sinus tenderness. Oropharynx: Lips, mucosa, and tongue normal, teeth and gums normal, oropharynx normal. Neck: Supple, no adenopathy; thyroid symmetric, normal size, no bruits. Lungs: Lungs clear to auscultation. No wheezing, rhonchi, rales. Positive for cough. Heart: RRR without murmur, gallop, or rubs. No ectopy. Extremities: No deformities, edema. Health Maintenance List BP CONTROLLED (<130/80) due on 1977 HEPATITIS C SCREENING due on 2003 INFLUENZA(1) due on 05/03/2018 STATIN MED ADHERENCE due on 06/02/2018 STEROID INHALER PRESCRIBED due on 06/02/2018 STEROID INHALER ADHERENCE due on 06/02/2018 LDL CHOLESTEROL due on 02/20/2019 ANNUAL PCP TEAM CHRONIC DISEASE VISIT due on 04/04/2019 DIABETES SCREEN due on 02/20/2021 LIPID SCREEN due on 02/20/2023 COLORECTAL CANCER SCREENING,SEE MODIFIER due on 11/17/2024 DTAP,TDAP,TD(3 - Tdap) due on 02/15/2025 PROSTATE CANCER SCREENING DISCUSSION Completed Data reviewed Impression IMPRESSION: No acute cytopathology technologist: LIANE ? Transcribe Date/Time: May 10:11A Dictated by : ROYAL GARCIA, DO This examination was interpreted and the report reviewed and electronically signed by: ROYAL GARCIA DO on May 10:12AM ?EST Results-Findings Final Report DATE OF EXAM: May 10:05AM ? WOX ? 5291 ?- ?XR CHEST 2V FRONTAL/LAT ?/ PROCEDURE REASON: Cough ?? ? Physician Interpretation ?EXAMINATION: ?CHEST RADIOGRAPH (2 VIEW FRONTAL AND LATERAL) CLINICAL HISTORY: Cough MQ: ?XC2_5 Comparison: ?06/24/2015 RESULTS: 1. Lines, Tubes, and Devices: ?None 2. Lungs and Pleura: ?The lungs are clear. ?No infiltrates, noncalcified ? nodules or pleural effusions are seen. Pulmonary vascularity is unremarkable. 3. Cardiomediastinal silhouette: ?Heart size within normal limits. 4. Other: ?There are extensive degenerative changes in the spine. ASSESSMENT/PLAN: 1. Severe persistent asthma without complication - ICD9: 493.90, ICD10: J45.50 (primary diagnosis) Severe persistent Asthma stable and improved - Continue current meds, He is now back on his Breo, is having improved symptoms. - Avoidance of triggers recommended 2. Sinus congestion - ICD9: 478.19, ICD10: R09.81 - Advised rest, increase fluids and starting regular mucinex otc every 12 hours for the next 7 days. Discussed need to follow up if having fevers, chills, or increase sinus tenderness in the next 3-5 days. Follow up as needed. MAX Sullivan APRN.CNP 05/09/2018 8:03 AM Signed Please start mucinex (regular) today with plenty of water to get sinus cavities draining. Please take every 12 hours for the next few days. If you become feverish, we would want to see you back in the office. Rivera Vazquez APRN.CNP Referring Provider: PATRICIA CHAVIS ([facility]) [[id number]] Allergies As of Date: 05/09/2018 Noted Allergy Reaction PROPOFOL (PF) 11/17/2014 14 - Other: See Comments Comments: Did'nt wake up VICODIN (HYDROCODONE-ACETAMINOPHE*02/10/2011 14 - Other: See Comments Comments: Constipation, extreme sleepiness ADHESIVE TAPE (ROSINS) 10/28/2009 CLARITIN (LORATADINE) 12/15/2008 5 - Intolerance Comments: did not help with s/s LATEX 09/26/2012 9 - Itching NAPROSYN (NAPROXEN) 11/26/2005 8 - GI Upset SIMVASTATIN 01/13/2013 14 - Other: See Comments Comments: leg muscle cramping TETRACYCLINE 11/26/2005 8 - GI Upset VIBRAMYCIN (DOXYCYCLINE CALCIUM) 11/26/2005 8 - GI Upset Date Reviewed: 05/09/2018 Reviewed by: Ameena Alexander Care Administrative Tech - Fully Assessed Reason for Visit: Cough [28] Cmt: possible blood clot Primary Visit Diagnosis:Severe persistent asthma without complication [J45.50] Other Visit Diagnosis:Sinus congestion [R09.81] Prescriptions as of 05/09/2018 Sig: PREDNISONE 20 MG TABLET Take 2 tablets by mouth once * TRIAMCINOLONE ACETONIDE 55 MC* Use 2 Sprays in the nose once* CHLORPHENIRAMINE ER 12 MG TAB* Take 12 mg by mouth every 12 * NYSTATIN ORAL Take 5 mL by mouth three time* ATORVASTATIN 20 MG TABLET Take 1 tablet by mouth once d* FLUTICASONE 200 MCG-VILANTERO* Inhale 1 Inhalation as instru* OMEPRAZOLE 40 MG CAPSULE,RAVEN* Take 1 capsule by mouth once * APIXABAN 5 MG TABLET Take 10 mg by mouth twice mukund* ALBUTEROL SULFATE 2.5 MG/3 ML* Use 3 mL via nebulizer every * PROAIR HFA 90 MCG/ACTUATION A* AMLODIPINE 5 MG TABLET take 1 tablet by mouth once d* Patient taking differently: take 2 tablet by mouth once d* * MULTIVITAMIN TABLET Take one(1) tablet daily. 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 Please take every 12 hours for the next few days. If you become feverish, we would want to see you back in the office. Rivera Vazquez APRN.YEYO Disposition: Return if symptoms worsen or fail to improve. Follow-up and Disposition History Recorded Encounter Status:Closed by RIVERA VAZQUEZ CNP on 05/09/18 PROGRESS Observed: 05/09/2018 Status: COMPLETED Source: [place] 7:55 AM [facility] [place] REPOSITORY HNO ID: [id number] Author: Rivera Vazquez Service: (none) Author Type: Nurse Practitioner Type: Progress Notes Filed: 05/09/2018 8:09 AM Note Text: Chief Complaint Patient presents with: Cough HPI Dinesh Cao is a 57 year old male who presents here today for Above Complaints. Patient presents to the office for one week follow up from [facility]. Had a persistent cough after being without Breo elliptal inhaler for a few weeks. He was given prednisone burst after he had a normal chest x-ray on 05/05/2018. At this time, he did get his breo elliptal back on Saturday. No fevers or chills. No shortness of breath. No chest pain. At this time, he does not have a cough. States that humidity is his trigger. No eye, ear or throat complaints. Today, he does finish the prednisone taper. Does have some sinus congestion, sinus pressure, headache. Has not taken any mucinex this week. Has been using tylenol as needed. Past medical history, appointments, medications, allergies reviewed. Previous Medical History PAST MEDICAL HISTORY Diagnosis Date - Achilles tendinitis 02/10/2011 - Allergic rhinitis 02/27/2012 - Allergic rhinitis, cause unspecified - ASHD (arteriosclerotic heart disease) 09/13/2011 - Asthma 11/03/2014 - Cough syncope syndrome - Esophageal reflux Gastroesophageal reflux - Essential hypertension, benign - GERD (gastroesophageal reflux disease) - Hiatal hernia 06/17/2015 [facility] - see scanned documents - Hyperlipidemia LDL goal < 100 01/21/2013 - Peripheral vascular disease (HCC) - Pulmonary embolism on left (HCC) - Pulmonary embolus (HCC) 09/23/2017 left - Severe persistent asthma without complication - Severe persistent asthma, uncomplicated - Syncope 11/06/2017 and collapse Previous Surgical History PAST SURGICAL HISTORY Procedure Laterality Date - APPENDECTOMY 1988 - COLONOSCOP W/ OR W/O [facility] SPEC 11/17/14 Colonoscopy - EGD W/O OR W/BRUSH/WASH 11/17/14 EGD - KNEE SCOPE,DIAGNOSTIC 08/31/2009 Arthroscopy, knee right [facility] - LAPAROSCOPIC CHOLEYCYSTECTOMY 1999 Cholecystectomy, lap - NASAL SEPTUM REPOS W STABILIZATION 06/2010 - PAST SURGICAL HISTORY OF ruptured valve on back of right knee - PAST SURGICAL HISTORY OF 08/31/09 repair of a torn mansicus - REVISE SECONDARY VARICOSITY 2003 Varicose Vein Surgery, BLE - VASECTOMY 1999 Family History FAMILY HISTORY Problem Relation Age of Onset - Hypertension Mother - other (renal stones [Other]) Father - Diabetes Son - other (GERD [Other]) Brother Patient Allergies ALLERGIES Allergen Reactions - Propofol (Pf) Other: See Comments Did'nt wake up - Vicodin [Hydrocodon* Other: See Comments Constipation, extreme sleepiness - Adhesive Tape (Georgina* - Claritin [Loratadin* Intolerance did not help with s/s - Latex Itching - Naprosyn [Naproxen] GI Upset - Simvastatin Other: See Comments leg muscle cramping - Tetracycline GI Upset - Vibramycin [Doxycyc* GI Upset Current Medications Current Outpatient Prescriptions on File Prior to Visit: predniSONE (DELTASONE) 20 mg tablet Take 2 tablets by mouth once daily for 5 days. triamcinolone acetonide (NASACORT) 55 mcg nasal inhaler Use 2 Sprays in the nose once daily. chlorpheniramine maleate (CHLORPHEN SR) 12 mg TbER Take 12 mg by mouth every 12 hours. NYSTATIN ORAL Take 5 mL by mouth three times daily. atorvastatin (LIPITOR) 20 mg tablet Take 1 tablet by mouth once daily. fluticasone-vilanterol (BREO ELLIPTA) 200-25 mcg/dose inhaler Inhale 1 Inhalation as instructed once daily. Omeprazole 40 mg capsule Take 1 capsule by mouth once daily. apixaban (ELIQUIS) 5 mg tab tab(s) Take 10 mg by mouth twice daily. albuterol (PROVENTIL) 2.5 mg /3 mL (0.083 %) nebulizer solution Use 3 mL via nebulizer every 4 hours as needed for Wheezing/Shortness of Breath. Use over 5-15minutes. PROAIR HFA 90 mcg/actuation inhaler amLODIPine (NORVASC) 5 mg tablet take 1 tablet by mouth once daily (Patient taking differently: take 2 tablet by mouth once daily) multivitamin ORAL tablet Take one(1) tablet daily. No current facility-administered medications on file prior to visit. 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 Reviewed relevant PMHx, PSHx, Social Hx, current medications and allergies. EXAM: BP 128/68 Pulse 64 Temp (!) 35.7 ?C (96.3 ?F) (Tympanic) Wt 113.9 kg (251 lb) SpO2 98% BMI 35.01 kg/m? General Appearance: Well appearing, alert, in no acute distress, well-hydrated, well nourished.. Head: Normocephalic, no masses, lesions, tenderness or abnormalities. Eyes: Anicteric sclera. Pupils are equally round and reactive to light. Extraocular movements are intact. . Ears: External ears normal, canals clear. Nose/Sinuses: Nares normal, septum midline, mucosa normal, no drainage. Minimal frontal sinus tenderness. Oropharynx: Lips, mucosa, and tongue normal, teeth and gums normal, oropharynx normal. Neck: Supple, no adenopathy; thyroid symmetric, normal size, no bruits. Lungs: Lungs clear to auscultation. No wheezing, rhonchi, rales. Positive for cough. Heart: RRR without murmur, gallop, or rubs. No ectopy. Extremities: No deformities, edema. Health Maintenance List BP CONTROLLED (<130/80) due on 1977 HEPATITIS C SCREENING due on 2003 INFLUENZA(1) due on 05/03/2018 STATIN MED ADHERENCE due on 06/02/2018 STEROID INHALER PRESCRIBED due on 06/02/2018 STEROID INHALER ADHERENCE due on 06/02/2018 LDL CHOLESTEROL due on 02/20/2019 ANNUAL PCP TEAM CHRONIC DISEASE VISIT due on 04/04/2019 DIABETES SCREEN due on 02/20/2021 LIPID SCREEN due on 02/20/2023 COLORECTAL CANCER SCREENING,SEE MODIFIER due on 11/17/2024 DTAP,TDAP,TD(3 - Tdap) due on 02/15/2025 PROSTATE CANCER SCREENING DISCUSSION Completed Data reviewed Impression IMPRESSION: No acute cytopathology technologist: LIANE ? Transcribe Date/Time: May 10:11A Dictated by : ROYAL GARCIA, DO This examination was interpreted and the report reviewed and electronically signed by: ROYAL GARCIA, DO on May 10:12AM ?EST Results-Findings Final Report DATE OF EXAM: May 10:05AM ? WOX ? [id number] ?- ?XR CHEST 2V FRONTAL/LAT ?/ PROCEDURE REASON: Cough ?? ? Physician Interpretation ?EXAMINATION: ?CHEST RADIOGRAPH (2 VIEW FRONTAL AND LATERAL) CLINICAL HISTORY: Cough MQ: ?XC2_5 Comparison: ?06/24/2015 RESULTS: 1. Lines, Tubes, and Devices: ?None 2. Lungs and Pleura: ?The lungs are clear. ?No infiltrates, noncalcified ? nodules or pleural effusions are seen. Pulmonary vascularity is unremarkable. 3. Cardiomediastinal silhouette: ?Heart size within normal limits. 4. Other: ?There are extensive degenerative changes in the spine. ASSESSMENT/PLAN: 1. Severe persistent asthma without complication - ICD9: 493.90, ICD10: J45.50 (primary diagnosis) Severe persistent Asthma stable and improved - Continue current meds, He is now back on his Breo, is having improved symptoms. - Avoidance of triggers recommended 2. Sinus congestion - ICD9: 478.19, ICD10: R09.81 - Advised rest, increase fluids and starting regular mucinex otc every 12 hours for the next 7 days. Discussed need to follow up if having fevers, chills, or increase sinus tenderness in the next 3-5 days. Follow up as needed. Rivera Vazquez APRN.BILINGUAL LOAN PROCESSOR XR CHEST 2V FRONTAL/LAT Observed: 05/05/2018 Status: F Source: [place] 10:05 AM [facility] REPOSITORY * * *Final Report* * * DATE OF EXAM: May 05 2018 10:05AM WOX [id number] - XR CHEST 2V FRONTAL/LAT / PROCEDURE REASON: Cough * * * * Physician Interpretation * * * * EXAMINATION: CHEST RADIOGRAPH (2 VIEW FRONTAL and LATERAL) CLINICAL HISTORY: Cough MQ: XC2_5 Comparison: 06/24/2015 RESULTS: 1. Lines, Tubes, and Devices: None 2. Lungs and Pleura: The lungs are clear. No infiltrates, noncalcified nodules or pleural effusions are seen. Pulmonary vascularity is unremarkable. 3. Cardiomediastinal silhouette: Heart size within normal limits. 4. Other: There are extensive degenerative changes in the spine. IMPRESSION: No acute cytopathology technologist: LIANE Transcribe Date/Time: May 05 2018 10:11A Dictated by : ROYAL GARCIA DO This examination was interpreted and the report reviewed and electronically signed by: ROYAL GARCIA DO on May 05 2018 10:12AM EST [id number] PROGRESS Observed: 05/05/2018 Status: COMPLETED Source: [place] 10:00 AM [facility] REPOSITORY HNO ID: [id number] Author: Sue Alston Service: (none) Author Type: (none) Type: Progress Notes Filed: 05/05/2018 10:05 AM Note Text: Radiology Service Progress Note PATIENT NAME: Dinesh Cao DATE OF SERVICE: May 05, 2018 TIME: 10:00 AM PATIENT IDENTITY VERIFICATION COMPLETED USING TWO (2) METHODS: Patient confirmed name verbally and Date of . PATIENT GENDER DATA: Male PATIENT RELEVANT IMPLANT DATA REVIEWED: Not Applicable RADIOLOGY DEPARTMENT: General X-ray: Exam(s) Completed: Chest X-Ray PERIPHERAL IV DATA: Not applicable SIGNED BY: Sue Alston May 05, 2018 10:00 AM PROGRESS Observed: 05/05/2018 Status: COMPLETED Source: [place] 9:43 AM [facility] REPOSITORY HNO ID: [id number] Author: Patricia Chavis Service: (none) Author Type: Nurse Practitioner Type: Progress Notes Filed: 05/05/2018 1:10 PM Note Text: Subjective HPI Dinesh Cao is a 57 year old male who presents today for CC of cough. This started 3 weeks ago. Has tried asthma medicine without relief. Symptoms are worsened by nothing. Risk factors hx of asthma, hx of PE/no longer on anticoag. Has been off breo for few weeks, has been out of stock at pharmacy. .Patient presents with: Cough: productive x 3 weeks PAST MEDICAL HISTORY Diagnosis Date - Achilles tendinitis 02/10/2011 - Allergic rhinitis 02/27/2012 - Allergic rhinitis, cause unspecified - ASHD (arteriosclerotic heart disease) 09/13/2011 - Asthma 11/03/2014 - Cough syncope syndrome - Esophageal reflux Gastroesophageal reflux - Essential hypertension, benign - GERD (gastroesophageal reflux disease) - Hiatal hernia 06/17/2015 [facility] - see scanned documents - Hyperlipidemia LDL goal < 100 01/21/2013 - Peripheral vascular disease (HCC) - Pulmonary embolism on left (HCC) - Pulmonary embolus (HCC) 09/23/2017 left - Severe persistent asthma without complication - Severe persistent asthma, uncomplicated - Syncope 11/06/2017 and collapse PAST SURGICAL HISTORY Procedure Laterality Date - APPENDECTOMY 1988 - COLONOSCOP W/ OR W/O BRSH SPEC 11/17/14 Colonoscopy - EGD W/O OR W/BRUSH/WASH 11/17/14 EGD - KNEE SCOPE,DIAGNOSTIC 08/31/2009 Arthroscopy, knee right [facility] - LAPAROSCOPIC CHOLEYCYSTECTOMY 1999 Cholecystectomy, lap - NASAL SEPTUM REPOS W STABILIZATION 06/2010 - PAST SURGICAL HISTORY OF ruptured valve on back of right knee - PAST SURGICAL HISTORY OF 08/31/09 repair of a torn mansicus - REVISE SECONDARY VARICOSITY 2003 Varicose Vein Surgery, BLE - VASECTOMY 1999 ALLERGIES Propofol (Pf); Vicodin [Hydrocodone-Acetaminophen]; Adhesive Tape (Rosins); Claritin [Loratadine]; Latex; Naprosyn [Naproxen]; Simvastatin; Tetracycline; Vibramycin [Doxycycline Calcium] MEDICATIONS NYSTATIN ORAL Take 5 mL by mouth three times daily. atorvastatin (LIPITOR) 20 mg tablet Take 1 tablet by mouth once daily. fluticasone-vilanterol (BREO ELLIPTA) 200-25 mcg/dose inhaler Inhale 1 Inhalation as instructed once daily. Omeprazole 40 mg capsule Take 1 capsule by mouth once daily. albuterol (PROVENTIL) 2.5 mg /3 mL (0.083 %) nebulizer solution Use 3 mL via nebulizer every 4 hours as needed for Wheezing/Shortness of Breath. Use over 5-15minutes. PROAIR HFA 90 mcg/actuation inhaler amLODIPine (NORVASC) 5 mg tablet take 1 tablet by mouth once daily multivitamin ORAL tablet Take one(1) tablet daily. triamcinolone acetonide (NASACORT) 55 mcg nasal inhaler Use 2 Sprays in the nose once daily. chlorpheniramine maleate (CHLORPHEN SR) 12 mg TbER Take 12 mg by mouth every 12 hours. apixaban (ELIQUIS) 5 mg tab tab(s) Take 10 mg by mouth twice daily. FAMILY HISTORY Problem Relation Age of Onset - Hypertension Mother - other (renal stones [Other]) Father - Diabetes Son - other (GERD [Other]) Brother Social History Substance Use Topics - Smoking status: Never Smoker - Smokeless tobacco: Never Used - Alcohol use No Review of Systems Constitutional: Negative for chills, fever and weight loss. HENT: Negative for congestion, ear pain, nosebleeds and sore throat. Respiratory: Positive for cough. Negative for shortness of breath and wheezing. Cardiovascular: Negative for chest pain. Musculoskeletal: Negative for neck pain. Objective Blood pressure 130/76, pulse 64, temperature 36.1 ?C (96.9 ?F), temperature source Tympanic, resp. rate 16, weight 111.1 kg (245 lb), SpO2 96 %. Physical Exam Constitutional: He is oriented to person, place, and time and well-developed, well-nourished, and in no distress. Non-toxic appearance. He does not have a sickly appearance. No distress. HENT: Head: Normocephalic and atraumatic. Right Ear: Hearing, tympanic membrane, external ear and ear canal normal. Left Ear: Hearing, tympanic membrane, external ear and ear canal normal. Nose: Nose normal. Mouth/Throat: Uvula is midline, oropharynx is clear and moist and mucous membranes are normal. Eyes: Pupils are equal, round, and reactive to light. Conjunctivae and lids are normal. Right eye exhibits no discharge. Left eye exhibits no discharge. No scleral icterus. Neck: Trachea normal and normal range of motion. Neck supple. Cardiovascular: Normal rate, regular rhythm and normal heart sounds. Pulmonary/Chest: Effort normal and breath sounds normal. Lymphadenopathy: He has no cervical adenopathy. Neurological: He is alert and oriented to person, place, and time. Skin: No rash noted. He is not diaphoretic. ASSESSMENT/PLAN: 1. Persistent cough - ICD9: 786.2, ICD10: R05 Xray negative, will order prednisone -has been off breo for few weeks, getting refill tomorrow -will schedule f/u with pcp - XR CHEST 2V FRONTAL/LAT - Dictated by : ROYAL GARCIA DO Impression IMPRESSION: No acute pathology - PREDNISONE 20 MG TABLET Prescription instructions reviewed with patient as applicable. Patient advised if symptoms do not improve or if symptoms worsen sooner, to contact the office for further evaluation by their primary care physician. Potential red flag symptoms discussed with the patient. Reviewed appropriate action plan to take if red flag symptoms occur. Patient agreeable to treatment plan. Patricia Chavis APRN.CNP CNOV Observed: 05/05/2018 Status: COMPLETED Source: [place] 9:30 AM [facility] REPOSITORY Office Visit (WSTR) DINESH CAO ([id number]) 1960 M Date Time Provider Department 05/05/18 9:30 AM PATRICIA CHAVIS (YEYO) [facility] During your visit today, we recorded the following information about you: Temperature Pulse Respiration Blood pressure 96.9 degrees 64/minute 16/minute 130/76 Weight 111.1 kg Patricia Chavis APRN.CNP 05/05/2018 1:10 PM Signed Subjective HPI Dinesh Cao is a 57 year old male who presents today for CC of cough. This started 3 weeks ago. Has tried asthma medicine without relief. Symptoms are worsened by nothing. Risk factors hx of asthma, hx of PE/no longer on anticoag. Has been off breo for few weeks, has been out of stock at pharmacy. .Patient presents with: Cough: productive x 3 weeks PAST MEDICAL HISTORY Diagnosis Date - Achilles tendinitis 02/10/2011 - Allergic rhinitis 02/27/2012 - Allergic rhinitis, cause unspecified - ASHD (arteriosclerotic heart disease) 09/13/2011 - Asthma 11/03/2014 - Cough syncope syndrome - Esophageal reflux Gastroesophageal reflux - Essential hypertension, benign - GERD (gastroesophageal reflux disease) - Hiatal hernia 06/17/2015 [facility] - see scanned documents - Hyperlipidemia LDL goal < 100 01/21/2013 - Peripheral vascular disease (HCC) - Pulmonary embolism on left (HCC) - Pulmonary embolus (HCC) 09/23/2017 left - Severe persistent asthma without complication - Severe persistent asthma, uncomplicated - Syncope 11/06/2017 and collapse PAST SURGICAL HISTORY Procedure Laterality Date - APPENDECTOMY 1988 - COLONOSCOP W/ OR W/O BRSH SPEC 11/17/14 Colonoscopy - EGD W/O OR W/BRUSH/WASH 11/17/14 EGD - KNEE SCOPE,DIAGNOSTIC 08/31/2009 Arthroscopy, knee right [facility] - LAPAROSCOPIC CHOLEYCYSTECTOMY 1999 Cholecystectomy, lap - NASAL SEPTUM REPOS W STABILIZATION 06/2010 - PAST SURGICAL HISTORY OF ruptured valve on back of right knee - PAST SURGICAL HISTORY OF 08/31/09 repair of a torn mansicus - REVISE SECONDARY VARICOSITY 2003 Varicose Vein Surgery, BLE - VASECTOMY 1999 ALLERGIES Propofol (Pf); Vicodin [Hydrocodone-Acetaminophen]; Adhesive Tape (Rosins); Claritin [Loratadine]; Latex; Naprosyn [Naproxen]; Simvastatin; Tetracycline; Vibramycin [Doxycycline Calcium] MEDICATIONS NYSTATIN ORAL Take 5 mL by mouth three times daily. atorvastatin (LIPITOR) 20 mg tablet Take 1 tablet by mouth once daily. fluticasone-vilanterol (BREO ELLIPTA) 200-25 mcg/dose inhaler Inhale 1 Inhalation as instructed once daily. Omeprazole 40 mg capsule Take 1 capsule by mouth once daily. albuterol (PROVENTIL) 2.5 mg /3 mL (0.083 %) nebulizer solution Use 3 mL via nebulizer every 4 hours as needed for Wheezing/Shortness of Breath. Use over 5-15minutes. PROAIR HFA 90 mcg/actuation inhaler amLODIPine (NORVASC) 5 mg tablet take 1 tablet by mouth once daily multivitamin ORAL tablet Take one(1) tablet daily. triamcinolone acetonide (NASACORT) 55 mcg nasal inhaler Use 2 Sprays in the nose once daily. chlorpheniramine maleate (CHLORPHEN SR) 12 mg TbER Take 12 mg by mouth every 12 hours. apixaban (ELIQUIS) 5 mg tab tab(s) Take 10 mg by mouth twice daily. FAMILY HISTORY Problem Relation Age of Onset - Hypertension Mother - other (renal stones [Other]) Father - Diabetes Son - other (GERD [Other]) Brother Social History Substance Use Topics - Smoking status: Never Smoker - Smokeless tobacco: Never Used - Alcohol use No Review of Systems Constitutional: Negative for chills, fever and weight loss. HENT: Negative for congestion, ear pain, nosebleeds and sore throat. Respiratory: Positive for cough. Negative for shortness of breath and wheezing. Cardiovascular: Negative for chest pain. Musculoskeletal: Negative for neck pain. Objective Blood pressure 130/76, pulse 64, temperature 36.1 ?C (96.9 ?F), temperature source Tympanic, resp. rate 16, weight 111.1 kg (245 lb), SpO2 96 %. Physical Exam Constitutional: He is oriented to person, place, and time and well-developed, well-nourished, and in no distress. Non-toxic appearance. He does not have a sickly appearance. No distress. HENT: Head: Normocephalic and atraumatic. Right Ear: Hearing, tympanic membrane, external ear and ear canal normal. Left Ear: Hearing, tympanic membrane, external ear and ear canal normal. Nose: Nose normal. Mouth/Throat: Uvula is midline, oropharynx is clear and moist and mucous membranes are normal. Eyes: Pupils are equal, round, and reactive to light. Conjunctivae and lids are normal. Right eye exhibits no discharge. Left eye exhibits no discharge. No scleral icterus. Neck: Trachea normal and normal range of motion. Neck supple. Cardiovascular: Normal rate, regular rhythm and normal heart sounds. Pulmonary/Chest: Effort normal and breath sounds normal. Lymphadenopathy: He has no cervical adenopathy. Neurological: He is alert and oriented to person, place, and time. Skin: No rash noted. He is not diaphoretic. ASSESSMENT/PLAN: 1. Persistent cough - ICD9: 786.2, ICD10: R05 Xray negative, will order prednisone -has been off breo for few weeks, getting refill tomorrow -will schedule f/u with pcp - XR CHEST 2V FRONTAL/LAT - Dictated by : ROYAL GARCIA DO Impression IMPRESSION: No acute pathology - PREDNISONE 20 MG TABLET Prescription instructions reviewed with patient as applicable. Patient advised if symptoms do not improve or if symptoms worsen sooner, to contact the office for further evaluation by their primary care physician. Potential red flag symptoms discussed with the patient. Reviewed appropriate action plan to take if red flag symptoms occur. Patient agreeable to treatment plan. Patricia Chavis APRN.BILINGUAL LOAN PROCESSOR Referring Provider: SELF [[id number]] Allergies As of Date: 05/05/2018 Noted Allergy Reaction PROPOFOL (PF) 11/17/2014 14 - Other: See Comments Comments: Did'nt wake up VICODIN (HYDROCODONE-ACETAMINOPHE*02/10/2011 14 - Other: See Comments Comments: Constipation, extreme sleepiness ADHESIVE TAPE (ROSINS) 10/28/2009 CLARITIN (LORATADINE) 12/15/2008 5 - Intolerance Comments: did not help with s/s LATEX 09/26/2012 9 - Itching NAPROSYN (NAPROXEN) 11/26/2005 8 - GI Upset SIMVASTATIN 01/13/2013 14 - Other: See Comments Comments: leg muscle cramping TETRACYCLINE 11/26/2005 8 - GI Upset VIBRAMYCIN (DOXYCYCLINE CALCIUM) 11/26/2005 8 - GI Upset Date Reviewed: 05/05/2018 Reviewed by: Patricia ([facility]) - Fully Assessed Reason for Visit: Cough [28] Cmt: productive x 3 weeks Primary Visit Diagnosis:Persistent cough [R05] Order(s):XR CHEST 2V FRONTAL/LAT [[id number]] Order #: [id number] #:[id number] predniSONE (DELTASONE) 20 mg tabletTake 2 tablets by mouth once daily for 5 days.Disp: 10 tabletRfl: 0 Prescriptions as of 05/05/2018 Sig: NYSTATIN ORAL Take 5 mL by mouth three time* ATORVASTATIN 20 MG TABLET Take 1 tablet by mouth once d* FLUTICASONE 200 MCG-VILANTERO* Inhale 1 Inhalation as instru* OMEPRAZOLE 40 MG CAPSULE,RAVEN* Take 1 capsule by mouth once * ALBUTEROL SULFATE 2.5 MG/3 ML* Use 3 mL via nebulizer every * PROAIR HFA 90 MCG/ACTUATION A* AMLODIPINE 5 MG TABLET take 1 tablet by mouth once d* Patient taking differently: take 2 tablet by mouth once d* * MULTIVITAMIN TABLET Take one(1) tablet daily. PREDNISONE 20 MG TABLET Take 2 tablets by mouth once * TRIAMCINOLONE ACETONIDE 55 MC* Use 2 Sprays in the nose once* CHLORPHENIRAMINE ER 12 MG TAB* Take 12 mg by mouth every 12 * APIXABAN 5 MG TABLET Take 10 mg by mouth twice mukund* Problem List As Of Date 05/05/2018 Noted Resolved ASTHMA UNSPECIFIED [J45.909] INVALID FOR*10/04/2014 ESOPHAGEAL REFLUX [K21.9] INVALID FOR* Essential Hypertension, Benign [I10] INVALID FOR* Achilles tendinitis [M76.60] INVALID FOR*10/04/2014 ASHD (arteriosclerotic heart disease) [I25.10] INVALID FOR* Allergic rhinitis [J30.9] INVALID FOR* Hyperlipidemia with target LDL less than 100 [E*INVALID FOR* 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 Encounter Status:Closed by PATRICIA CHAVIS CNP on 05/05/18 RACHELOV Observed: 04/04/2018 Status: COMPLETED Source: [place] 7:40 AM [facility] REPOSITORY Office Visit (FAMPWS) DINESH CAO ([id number]) 1960 M Date Time Provider Department 04/04/18 7:40 AM RIVERA VAZQUEZ) [facility] During your visit today, we recorded the following information about you: Temperature Pulse Blood pressure Weight 97.6 degrees 66/minute 125/69 112 kg Rivera Vazquez APRN.CNP 04/04/2018 8:00 AM Signed Chief Complaint Patient presents with: Sinus Infection,frequent/recurring HPI Dinesh Cao is a 57 year old male who presents here today for Above Complaints. Patient presents to the office for express care follow up. Was there on 03/25/2018 with complaints of cough, congestion, sinus pressure. Was given Augmentin with a post-date written for 4 days later to be filled, but pharmacy allowed him to fill it on 03/26/2018. Also given some prednisone for cough related to asthma. Has been on Augmentin for almost a week. At this time, patient presents due to continued symptoms. Has complaints of sinus pressure. Post-nasal drip is present. No fevers or chills. Cough is present. Some wheezing is present. Has been using his inhaler, approximately 5 times per day. Patient states that he feels about the same as when he went to urgent care, almost worst. Has not been using any mucinex, has been using tylenol. Questions a lesion on his scalp, has been present for a few months. Patient is bald, wears a hat, does not apply sun screen. No drainage. Past medical history, appointments, medications, allergies reviewed. Previous Medical History PAST MEDICAL HISTORY Diagnosis Date - Achilles tendinitis 02/10/2011 - Allergic rhinitis 02/27/2012 - Allergic rhinitis, cause unspecified - ASHD (arteriosclerotic heart disease) 09/13/2011 - Asthma 11/03/2014 - Cough syncope syndrome - Esophageal reflux Gastroesophageal reflux - Essential hypertension, benign - GERD (gastroesophageal reflux disease) - Hiatal hernia 06/17/2015 [facility] - see scanned documents - Hyperlipidemia LDL goal < 100 01/21/2013 - Peripheral vascular disease (HCC) - Pulmonary embolism on left (HCC) - Pulmonary embolus (HCC) 09/23/2017 left - Severe persistent asthma without complication - Severe persistent asthma, uncomplicated - Syncope 11/06/2017 and collapse Previous Surgical History PAST SURGICAL HISTORY Procedure Laterality Date - APPENDECTOMY 1988 - COLONOSCOP W/ OR W/O [facility] SPEC 11/17/14 Colonoscopy - EGD W/O OR W/BRUSH/WASH 11/17/14 EGD - KNEE SCOPE,DIAGNOSTIC 08/31/2009 Arthroscopy, knee right [facility] - LAPAROSCOPIC CHOLEYCYSTECTOMY 1999 Cholecystectomy, lap - NASAL SEPTUM REPOS W STABILIZATION 06/2010 - PAST SURGICAL HISTORY OF ruptured valve on back of right knee - PAST SURGICAL HISTORY OF 08/31/09 repair of a torn mansicus - REVISE SECONDARY VARICOSITY 2003 Varicose Vein Surgery, BLE - VASECTOMY 1999 Family History FAMILY HISTORY Problem Relation Age of Onset - Hypertension Mother - renal stones [Other] [OTHER] Father - Diabetes Son - GERD [Other] [OTHER] Brother Patient Allergies ALLERGIES Allergen Reactions - Propofol (Pf) Other: See Comments Did'nt wake up - Vicodin [Hydrocodon* Other: See Comments Constipation, extreme sleepiness - Adhesive Tape (Georgina* - Claritin [Loratadin* Intolerance did not help with s/s - Latex Itching - Naprosyn [Naproxen] GI Upset - Simvastatin Other: See Comments leg muscle cramping - Tetracycline GI Upset - Vibramycin [Doxycyc* GI Upset Current Medications Current Outpatient Prescriptions on File Prior to Visit: triamcinolone acetonide (NASACORT) 55 mcg nasal inhaler Use 2 Sprays in the nose once daily. chlorpheniramine maleate (CHLORPHEN SR) 12 mg TbER Take 12 mg by mouth every 12 hours. NYSTATIN ORAL Take 5 mL by mouth three times daily. atorvastatin (LIPITOR) 20 mg tablet Take 1 tablet by mouth once daily. fluticasone-vilanterol (BREO ELLIPTA) 200-25 mcg/dose inhaler Inhale 1 Inhalation as instructed once daily. Omeprazole 40 mg capsule Take 1 capsule by mouth once daily. apixaban (ELIQUIS) 5 mg tab tab(s) Take 10 mg by mouth twice daily. albuterol (PROVENTIL) 2.5 mg /3 mL (0.083 %) nebulizer solution Use 3 mL via nebulizer every 4 hours as needed for Wheezing/Shortness of Breath. Use over 5-15minutes. PROAIR HFA 90 mcg/actuation inhaler amLODIPine (NORVASC) 5 mg tablet take 1 tablet by mouth once daily (Patient taking differently: take 2 tablet by mouth once daily) multivitamin ORAL tablet Take one(1) tablet daily. No current facility-administered medications on file prior to visit. 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 Reviewed relevant PMHx, PSHx, Social Hx, current medications and allergies. EXAM: BP 125/69 Pulse 66 Temp 36.4 ?C (97.6 ?F) (Tympanic) Wt 112 kg (247 lb) SpO2 99% BMI 34.45 kg/m? General Appearance: Well appearing, alert, in no acute distress, well-hydrated, well nourished.. Skin: AK present on the left side of the scalp, scaly and red in appearance. Head: Normocephalic, no masses, lesions, tenderness or abnormalities. Eyes: Anicteric sclera. Pupils are equally round and reactive to light. Extraocular movements are intact. . Ears: External ears normal, canals clear. Nose/Sinuses: Positive findings: mucosa erythematous and swollen. Oropharynx: Lips, mucosa, and tongue normal, teeth and gums normal, oropharynx normal and Positive findings: mild oropharyngeal erythema. Lungs: Lungs clear to auscultation. No wheezing, rhonchi, rales. Heart: RRR without murmur, gallop, or rubs. No ectopy. Health Maintenance List BLOOD PRESSURE CONTROLLED due on 1977 HEPATITIS C SCREENING due on 2003 INFLUENZA(1) due on 05/03/2018 STATIN MED ADHERENCE due on 05/03/2018 STEROID INHALER PRESCRIBED due on 05/03/2018 STEROID INHALER ADHERENCE due on 05/03/2018 LDL CHOLESTEROL due on 02/20/2019 ANNUAL PCP TEAM CHRONIC DISEASE VISIT due on 02/26/2019 DIABETES SCREEN due on 02/20/2021 LIPID SCREEN due on 02/20/2023 COLORECTAL CANCER SCREENING,SEE MODIFIER due on 11/17/2024 DTAP,TDAP,TD(3 - Tdap) due on 02/15/2025 PROSTATE CANCER SCREENING DISCUSSION Completed Data reviewed Component Latest Ref Rng AND Units 02/20/2018 Glucose 74 - 99 mg/dL 89 BUN 9 - 24 mg/dL 9 Creatinine 0.73 - 1.22 mg/dL 0.98 Sodium 136 - 144 mmol/L 143 Potassium 3.7 - 5.1 mmol/L 3.9 Chloride 97 - 105 mmol/L 103 CO2 22 - 30 mmol/L 29 Anion Gap 9 - 18 mmol/L 11 Calcium 8.5 - 10.2 mg/dL 9.1 eGFR- >60 eGFR-All Other Races . >60 Cholesterol, Total <200 mg/dL 161 Triglyceride <150 mg/dL 77 HDL Cholesterol >39 mg/dL 52 LDL Cholesterol <100 mg/dL 94 Non HDL Cholesterol <130 mg/dL 109 Fasting Time hrs 10 VLDL Cholesterol <30 mg/dL 15 TC:HDL Ratio <5.10 3.10 LDL:HDL Ratio <2.54 1.81 ASSESSMENT/PLAN: 1. Bacterial sinusitis - ICD9: 473.9, 041.9, ICD10: J32.9, B96.89 (primary diagnosis) - Will begin treatment with Levaquin - The patient should also be given Mucinex with plenty of water for the first 5-7 days of treatment. - Supportive care with plenty of fluids, rest, and analgesia prn. - LEVOFLOXACIN 500 MG TABLET 2. Severe persistent asthma without complication - ICD9: 493.90, ICD10: J45.50 - No exacerbation at this time. 3. AK (actinic keratosis) - ICD9: 702.0, ICD10: L57.0 UNIVERSAL PROTOCOL / SAFETY CHECKLIST Procedure to be performed: Cryotherapy Sign in Communication: Completed Time Out: Team Confirms the Correct Patient, Correct Procedure, Correct Site and Site Marking, Correct Position (if applicable), Prep and Dry Time (if applicable). Time: 0756 Affirmation of Time Out: YES Sign Out Discussion: Completed Liquid nitrogen use was indicated and chosen by the patient. Explained expected blistering and scabbing reaction that is expected. Two rounds of an approximate 5-10 second burst of liquid nitrogen was applied to the one lesion identified as actinic keratosis of the left side of scalp with a 45 second thaw in between applications. Patient tolerated application without any problems. Only minimal discomfort. I do not anticipate needing additional treatments. No questions were verbalized. Advised 4 week follow up if not resolving. Rivera Vazquez APRN.YEYO F/u as needed. Rivera Vazquez APRN.YEYO Vazquez APRN.YEYO 04/04/2018 7:51 AM Signed Please use Mucinex as direct by package twice a day, with lots of water, approximately 2-3 L is essential. Continue use of inhaler as prescribed. Your lungs were normal today, I would not recommend any further prednisone. Rivera Vazquez APRN.YEYO Referring Provider: SELF [200] Allergies As of Date: 04/04/2018 Noted Allergy Reaction PROPOFOL (PF) 11/17/2014 14 - Other: See Comments Comments: Did'nt wake up VICODIN (HYDROCODONE-ACETAMINOPHE*02/10/2011 14 - Other: See Comments Comments: Constipation, extreme sleepiness ADHESIVE TAPE (ROSINS) 10/28/2009 CLARITIN (LORATADINE) 12/15/2008 5 - Intolerance Comments: did not help with s/s LATEX 09/26/2012 9 - Itching NAPROSYN (NAPROXEN) 11/26/2005 8 - GI Upset SIMVASTATIN 01/13/2013 14 - Other: See Comments Comments: leg muscle cramping TETRACYCLINE 11/26/2005 8 - GI Upset VIBRAMYCIN (DOXYCYCLINE CALCIUM) 11/26/2005 8 - GI Upset Date Reviewed: 04/04/2018 Reviewed by: Rivera ([facility]) Taylor - Fully Assessed Reason for Visit: Pain, Sinus [857] Cmt: pressure Reason For Visit History Recorded Primary Visit Diagnosis:Bacterial sinusitis [J32.9, B96.89] Other Visit Diagnoses:Severe persistent asthma without complication [J45.50] AK (actinic keratosis) [L57.0] Order(s):levoFLOXacin (LEVAQUIN) 500 mg tabletTake 1 tablet by mouth once daily for 5 days.Disp: 5 tabletRfl: 0 Prescriptions as of 04/04/2018 Sig: TRIAMCINOLONE ACETONIDE 55 MC* Use 2 Sprays in the nose once* CHLORPHENIRAMINE ER 12 MG TAB* Take 12 mg by mouth every 12 * NYSTATIN ORAL Take 5 mL by mouth three time* ATORVASTATIN 20 MG TABLET Take 1 tablet by mouth once d* FLUTICASONE 200 MCG-VILANTERO* Inhale 1 Inhalation as instru* OMEPRAZOLE 40 MG CAPSULE,RAVEN* Take 1 capsule by mouth once * APIXABAN 5 MG TABLET Take 10 mg by mouth twice mukund* ALBUTEROL SULFATE 2.5 MG/3 ML* Use 3 mL via nebulizer every * PROAIR HFA 90 MCG/ACTUATION A* AMLODIPINE 5 MG TABLET take 1 tablet by mouth once d* Patient taking differently: take 2 tablet by mouth once d* * MULTIVITAMIN TABLET Take one(1) tablet daily. LEVOFLOXACIN 500 MG TABLET Take 1 tablet by mouth once d* Medication notes this encounter AMOXICILLIN 875 MG-POTASSIUM CLAVULANATE 125 MG TABLET >> Ameena Alexander Care Administrative Tech 04/04/2018 7:38 AM caused upset stomach, made symptoms worse Problem List As Of Date 04/04/2018 Noted Resolved ASTHMA UNSPECIFIED [J45.909] INVALID FOR*10/04/2014 ESOPHAGEAL REFLUX [K21.9] INVALID FOR* Essential Hypertension, Benign [I10] INVALID FOR* Achilles tendinitis [M76.60] INVALID FOR*10/04/2014 ASHD (arteriosclerotic heart disease) [I25.10] INVALID FOR* Allergic rhinitis [J30.9] INVALID FOR* Hyperlipidemia with target LDL less than 100 [E*INVALID FOR* 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 Continue use of inhaler as prescribed. Your lungs were normal today, I would not recommend any further prednisone. Rivera Vazquez APRN.YEY[facility] Prescriptions ordered this encounter Disp Refills Start End LEVOFLOXACIN 500 MG TABLET 5 ta* 0 04/04/2018 04/09/2018 Route: ORAL Sig: Take 1 tablet by mouth once daily for 5 days. Medications Discontinued During This Encounter amoxicillin-clavulanic acid (AUGMENT* 20 t* 0 03/29/2018 04/04/2018 Class: Print RX Route: ORAL Sig: Take 1 tablet by mouth twice daily for 10 days. Disc: Discontinued by Patient Encounter Status:Closed by RIVERA VAZQUEZ CNP on 04/04/18 PROGRESS Observed: 04/04/2018 Status: COMPLETED Source: [place] 7:39 AM [facility] REPOSITORY [facility] ID: [id number] Author: Rivera Vazquez Service: (none) Author Type: Nurse Practitioner Type: Progress Notes Filed: 04/04/2018 8:00 AM Note Text: Chief Complaint Patient presents with: Sinus Infection,frequent/recurring HPI Dinesh Cao is a 57 year old male who presents here today for Above Complaints. Patient presents to the office for express care follow up. Was there on 03/25/2018 with complaints of cough, congestion, sinus pressure. Was given Augmentin with a post-date written for 4 days later to be filled, but pharmacy allowed him to fill it on 03/26/2018. Also given some prednisone for cough related to asthma. Has been on Augmentin for almost a week. At this time, patient presents due to continued symptoms. Has complaints of sinus pressure. Post-nasal drip is present. No fevers or chills. Cough is present. Some wheezing is present. Has been using his inhaler, approximately 5 times per day. Patient states that he feels about the same as when he went to urgent care, almost worst. Has not been using any mucinex, has been using tylenol. Questions a lesion on his scalp, has been present for a few months. Patient is bald, wears a hat, does not apply sun screen. No drainage. Past medical history, appointments, medications, allergies reviewed. Previous Medical History PAST MEDICAL HISTORY Diagnosis Date - Achilles tendinitis 02/10/2011 - Allergic rhinitis 02/27/2012 - Allergic rhinitis, cause unspecified - ASHD (arteriosclerotic heart disease) 09/13/2011 - Asthma 11/03/2014 - Cough syncope syndrome - Esophageal reflux Gastroesophageal reflux - Essential hypertension, benign - GERD (gastroesophageal reflux disease) - Hiatal hernia 06/17/2015 [facility] - see scanned documents - Hyperlipidemia LDL goal < 100 01/21/2013 - Peripheral vascular disease (HCC) - Pulmonary embolism on left (HCC) - Pulmonary embolus (HCC) 09/23/2017 left - Severe persistent asthma without complication - Severe persistent asthma, uncomplicated - Syncope 11/06/2017 and collapse Previous Surgical History PAST SURGICAL HISTORY Procedure Laterality Date - APPENDECTOMY 1988 - COLONOSCOP W/ OR W/O [facility] SPEC 11/17/14 Colonoscopy - EGD W/O OR W/BRUSH/WASH 11/17/14 EGD - KNEE SCOPE,DIAGNOSTIC 08/31/2009 Arthroscopy, knee right [facility] - LAPAROSCOPIC CHOLEYCYSTECTOMY 1999 Cholecystectomy, lap - NASAL SEPTUM REPOS W STABILIZATION 06/2010 - PAST SURGICAL HISTORY OF ruptured valve on back of right knee - PAST SURGICAL HISTORY OF 08/31/09 repair of a torn mansicus - REVISE SECONDARY VARICOSITY 2003 Varicose Vein Surgery, BLE - VASECTOMY 1999 Family History FAMILY HISTORY Problem Relation Age of Onset - Hypertension Mother - renal stones [Other] [OTHER] Father - Diabetes Son - GERD [Other] [OTHER] Brother Patient Allergies ALLERGIES Allergen Reactions - Propofol (Pf) Other: See Comments Did'nt wake up - Vicodin [Hydrocodon* Other: See Comments Constipation, extreme sleepiness - Adhesive Tape (Georgina* - Claritin [Loratadin* Intolerance did not help with s/s - Latex Itching - Naprosyn [Naproxen] GI Upset - Simvastatin Other: See Comments leg muscle cramping - Tetracycline GI Upset - Vibramycin [Doxycyc* GI Upset Current Medications Current Outpatient Prescriptions on File Prior to Visit: triamcinolone acetonide (NASACORT) 55 mcg nasal inhaler Use 2 Sprays in the nose once daily. chlorpheniramine maleate (CHLORPHEN SR) 12 mg TbER Take 12 mg by mouth every 12 hours. NYSTATIN ORAL Take 5 mL by mouth three times daily. atorvastatin (LIPITOR) 20 mg tablet Take 1 tablet by mouth once daily. fluticasone-vilanterol (BREO ELLIPTA) 200-25 mcg/dose inhaler Inhale 1 Inhalation as instructed once daily. Omeprazole 40 mg capsule Take 1 capsule by mouth once daily. apixaban (ELIQUIS) 5 mg tab tab(s) Take 10 mg by mouth twice daily. albuterol (PROVENTIL) 2.5 mg /3 mL (0.083 %) nebulizer solution Use 3 mL via nebulizer every 4 hours as needed for Wheezing/Shortness of Breath. Use over 5-15minutes. PROAIR HFA 90 mcg/actuation inhaler amLODIPine (NORVASC) 5 mg tablet take 1 tablet by mouth once daily (Patient taking differently: take 2 tablet by mouth once daily) multivitamin ORAL tablet Take one(1) tablet daily. No current facility-administered medications on file prior to visit. 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 Reviewed relevant PMHx, PSHx, Social Hx, current medications and allergies. EXAM: BP 125/69 Pulse 66 Temp 36.4 ?C (97.6 ?F) (Tympanic) Wt 112 kg (247 lb) SpO2 99% BMI 34.45 kg/m? General Appearance: Well appearing, alert, in no acute distress, well-hydrated, well nourished.. Skin: AK present on the left side of the scalp, scaly and red in appearance. Head: Normocephalic, no masses, lesions, tenderness or abnormalities. Eyes: Anicteric sclera. Pupils are equally round and reactive to light. Extraocular movements are intact. . Ears: External ears normal, canals clear. Nose/Sinuses: Positive findings: mucosa erythematous and swollen. Oropharynx: Lips, mucosa, and tongue normal, teeth and gums normal, oropharynx normal and Positive findings: mild oropharyngeal erythema. Lungs: Lungs clear to auscultation. No wheezing, rhonchi, rales. Heart: RRR without murmur, gallop, or rubs. No ectopy. Health Maintenance List BLOOD PRESSURE CONTROLLED due on 1977 HEPATITIS C SCREENING due on 2003 INFLUENZA(1) due on 05/03/2018 STATIN MED ADHERENCE due on 05/03/2018 STEROID INHALER PRESCRIBED due on 05/03/2018 STEROID INHALER ADHERENCE due on 05/03/2018 LDL CHOLESTEROL due on 02/20/2019 ANNUAL PCP TEAM CHRONIC DISEASE VISIT due on 02/26/2019 DIABETES SCREEN due on 02/20/2021 LIPID SCREEN due on 02/20/2023 COLORECTAL CANCER SCREENING,SEE MODIFIER due on 11/17/2024 DTAP,TDAP,TD(3 - Tdap) due on 02/15/2025 PROSTATE CANCER SCREENING DISCUSSION Completed Data reviewed Component Latest Ref Rng AND Units 02/20/2018 Glucose 74 - 99 mg/dL 89 BUN 9 - 24 mg/dL 9 Creatinine 0.73 - 1.22 mg/dL 0.98 Sodium 136 - 144 mmol/L 143 Potassium 3.7 - 5.1 mmol/L 3.9 Chloride 97 - 105 mmol/L 103 CO2 22 - 30 mmol/L 29 Anion Gap 9 - 18 mmol/L 11 Calcium 8.5 - 10.2 mg/dL 9.1 eGFR- >60 eGFR-All Other Races . >60 Cholesterol, Total <200 mg/dL 161 Triglyceride <150 mg/dL 77 HDL Cholesterol >39 mg/dL 52 LDL Cholesterol <100 mg/dL 94 Non HDL Cholesterol <130 mg/dL 109 Fasting Time hrs 10 VLDL Cholesterol <30 mg/dL 15 TC:HDL Ratio <5.10 3.10 LDL:HDL Ratio <2.54 1.81 ASSESSMENT/PLAN: 1. Bacterial sinusitis - ICD9: 473.9, 041.9, ICD10: J32.9, B96.89 (primary diagnosis) - Will begin treatment with Levaquin - The patient should also be given Mucinex with plenty of water for the first 5-7 days of treatment. - Supportive care with plenty of fluids, rest, and analgesia prn. - LEVOFLOXACIN 500 MG TABLET 2. Severe persistent asthma without complication - ICD9: 493.90, ICD10: J45.50 - No exacerbation at this time. 3. AK (actinic keratosis) - ICD9: 702.0, ICD10: L57.0 UNIVERSAL PROTOCOL / SAFETY CHECKLIST Procedure to be performed: Cryotherapy Sign in Communication: Completed Time Out: Team Confirms the Correct Patient, Correct Procedure, Correct Site and Site Marking, Correct Position (if applicable), Prep and Dry Time (if applicable). Time: 0756 Affirmation of Time Out: YES Sign Out Discussion: Completed Liquid nitrogen use was indicated and chosen by the patient. Explained expected blistering and scabbing reaction that is expected. Two rounds of an approximate 5-10 second burst of liquid nitrogen was applied to the one lesion identified as actinic keratosis of the left side of scalp with a 45 second thaw in between applications. Patient tolerated application without any problems. Only minimal discomfort. I do not anticipate needing additional treatments. No questions were verbalized. Advised 4 week follow up if not resolving. Rivera Vazquez APRN.YEYO F/u as needed. Rivera Vazquez APRN.YEYO PROGRESS Observed: 03/25/2018 Status: COMPLETED Source: [place] 9:13 AM [facility] [place] REPOSITORY [facility] ID: [id number] Author: Myranda Bustos) Mona Service: (none) Author Type: Nurse Practitioner Type: Progress Notes Filed: 03/25/2018 9:50 AM Note Text: Subjective HPI HPI Dinesh Cao is a 57 year old male who presents today for CC of sinus congestion and pressure, he has a history of asthma. This started 5-6 days ago. He is also having post nasal drainage cough, and sore throat. Symptoms are worsened by lying down. He has tried abreo, nasal spray chlorathin Risk factors recent hospital procedure. BP 122/82 Pulse 68 Temp 36.2 ?C (97.2 ?F) Resp 16 Wt 111.1 kg (245 lb) BMI 34.17 kg/m? ALLERGIES Allergen Reactions - Propofol (Pf) Other: See Comments Did'nt wake up - Vicodin [Hydrocodon* Other: See Comments Constipation, extreme sleepiness - Adhesive Tape (Georgina* - Claritin [Loratadin* Intolerance did not help with s/s - Latex Itching - Naprosyn [Naproxen] GI Upset - Simvastatin Other: See Comments leg muscle cramping - Tetracycline GI Upset - Vibramycin [Doxycyc* GI Upset ACTIVE PROBLEM LIST Esophageal Reflux Essential Hypertension, Benign Ashd (Arteriosclerotic Heart Disease) Allergic Rhinitis Hyperlipidemia With Target Ldl Less Than 100 Cough Syncope Severe Persistent Asthma Without Complication Pulmonary Embolus (Hcc) Residential Current Use of Anticoagulant Therapy Family History Problem Relation Age of Onset - Hypertension Mother - renal stones [Other] [OTHER] Father - Diabetes Son - GERD [Other] [OTHER] Brother Social History Marital status: Spouse name: Kimberly Years of education: Number of children: 1 Occupational History Occupation Employer Comment [employer] Social History Main Topics Smoking status: Never Smoker Smokeless tobacco: Never Used Alcohol use: No Drug use: No Sexual activity: Yes Partners with: Female PAST MEDICAL HISTORY Diagnosis Date - Achilles tendinitis 02/10/2011 - Allergic rhinitis 02/27/2012 - Allergic rhinitis, cause unspecified - ASHD (arteriosclerotic heart disease) 09/13/2011 - Asthma 11/03/2014 - Cough syncope syndrome - Esophageal reflux Gastroesophageal reflux - Essential hypertension, benign - GERD (gastroesophageal reflux disease) - Hiatal hernia 06/17/2015 [facility] - see scanned documents - Hyperlipidemia LDL goal < 100 01/21/2013 - Peripheral vascular disease (HCC) - Pulmonary embolism on left (HCC) - Pulmonary embolus (HCC) 09/23/2017 left - Severe persistent asthma without complication - Severe persistent asthma, uncomplicated - Syncope 11/06/2017 and collapse Review of Systems Constitutional: Negative. Negative for chills, fever and malaise/fatigue. HENT: Positive for congestion, ear pain (right), sinus pain and sore throat. Respiratory: Positive for cough. Negative for sputum production, shortness of breath and wheezing. Cardiovascular: Negative for chest pain. Musculoskeletal: Negative for myalgias. Skin: Negative for rash. Neurological: Negative for headaches. Objective Physical Exam Constitutional: He is well-developed, well-nourished, and in no distress. HENT: Head: Normocephalic and atraumatic. Right Ear: Tympanic membrane, external ear and ear canal normal. Tympanic membrane is not injected, not erythematous, not retracted and not bulging. No middle ear effusion. Left Ear: Tympanic membrane, external ear and ear canal normal. Tympanic membrane is not injected, not erythematous, not retracted and not bulging. No middle ear effusion. Nose: Mucosal edema and rhinorrhea present. Right sinus exhibits maxillary sinus tenderness and frontal sinus tenderness. Left sinus exhibits maxillary sinus tenderness and frontal sinus tenderness. Mouth/Throat: Uvula is midline and mucous membranes are normal. Posterior oropharyngeal erythema present. No oropharyngeal exudate, posterior oropharyngeal edema or tonsillar abscesses. Eyes: Conjunctivae and EOM are normal. Pupils are equal, round, and reactive to light. Neck: Normal range of motion. Cardiovascular: Normal rate, regular rhythm and normal heart sounds. Pulmonary/Chest: Effort normal. No respiratory distress. He has no decreased breath sounds. He has wheezes (scattered). He has no rhonchi. He has no rales. A dry hacking cough was noted during this encounter. Talking in full sentences. Handling secretions without drooling. Lips and nailbeds are pink without cyanosis. Lymphadenopathy: Head (right side): No submental, no submandibular, no tonsillar, no preauricular and no posterior auricular adenopathy present. Head (left side): No submental, no submandibular, no tonsillar, no preauricular and no posterior auricular adenopathy present. He has no cervical adenopathy. Right cervical: No posterior cervical adenopathy present. Left cervical: No posterior cervical adenopathy present. Right: No supraclavicular adenopathy present. Left: No supraclavicular adenopathy present. Skin: Skin is warm and dry. Psychiatric: Affect normal. Nursing note and vitals reviewed. ASSESSMENT/PLAN: 1. URI with cough and congestion - ICD9: 465.9, ICD10: J06.9 (primary diagnosis) - Discussed viral etiology and rationale for treatment. You have a viral upper respiratory infection (i.e. Common cold) You need to rest as much as possible. Motrin or Tylenol as needed for fever or pain. Salt water gargles, chloraseptic spray or lozenges as needed for sore throat. Nasal saline irrigation at least 2 x day. Drink at least 8 glasses of fluids per day that aren't caffeinated. Eat a nutritious diet. Use a humidifier in your room at night. Tylenol (generic acetaminophen) 500 mg-2 tabs every 8 hrs. as needed for fever and aches Ibuprofen 600 mg (3-200mg tablets) every 6 hours -Mucinex (generic is fine) 1200 mg twice daily to help with cough and to thin out mucus 2. Moderate persistent asthma with (acute) exacerbation - ICD9: 493.92, ICD10: J45.41 Moderate persistent Asthma acute exacerbation - Avoidance of triggers recommended 3. Wheezing - ICD9: 786.07, ICD10: R06.2 Increase albuterol use to twice a day with nebulizer and inhaler as needed. Patient requesting antibiotic, advise not needed at this time, printed rx given post dated to start on Saturday if not improved Diagnosis and treatment plan were discussed and questions were answered to the patient's satisfaction. Pt acknowledged understanding of concepts and follow up plan. Specific signs and symptoms that would indicate the need for higher level of care were discussed in detail warranting prompt ER evaluation. Myranda Dunn APRN.CNP CNOV Observed: 03/25/2018 Status: COMPLETED Source: [place] 9:00 AM [facility] REPOSITORY Office Visit (WSTR) DINESH CAO ([id number]) 1960 M Date Time Provider Department 03/25/18 9:00 AM MYRANDA DUNN (YEYO) [facility] During your visit today, we recorded the following information about you: Temperature Pulse Respiration Blood pressure 97.2 degrees 68/minute 16/minute 122/82 Weight 111.1 kg Myranda Dunn APRN.CNP 03/25/2018 9:50 AM Signed Subjective HPI HPI Dinesh Cao is a 57 year old male who presents today for CC of sinus congestion and pressure, he has a history of asthma. This started 5-6 days ago. He is also having post nasal drainage cough, and sore throat. Symptoms are worsened by lying down. He has tried abreo, nasal spray chlorathin Risk factors recent hospital procedure. BP 122/82 Pulse 68 Temp 36.2 ?C (97.2 ?F) Resp 16 Wt 111.1 kg (245 lb) BMI 34.17 kg/m? ALLERGIES Allergen Reactions - Propofol (Pf) Other: See Comments Did'nt wake up - Vicodin [Hydrocodon* Other: See Comments Constipation, extreme sleepiness - Adhesive Tape (Georgina* - Claritin [Loratadin* Intolerance did not help with s/s - Latex Itching - Naprosyn [Naproxen] GI Upset - Simvastatin Other: See Comments leg muscle cramping - Tetracycline GI Upset - Vibramycin [Doxycyc* GI Upset ACTIVE PROBLEM LIST Esophageal Reflux Essential Hypertension, Benign Ashd (Arteriosclerotic Heart Disease) Allergic Rhinitis Hyperlipidemia With Target Ldl Less Than 100 Cough Syncope Severe Persistent Asthma Without Complication Pulmonary Embolus (Hcc) [employer] Current Use of Anticoagulant Therapy Family History Problem Relation Age of Onset - Hypertension Mother - renal stones [Other] [OTHER] Father - Diabetes Son - GERD [Other] [OTHER] Brother Social History Marital status: Spouse name: Kimberly Years of education: Number of children: 1 Occupational History Occupation Employer Comment [employer] Social History Main Topics Smoking status: Never Smoker Smokeless tobacco: Never Used Alcohol use: No Drug use: No Sexual activity: Yes Partners with: Female PAST MEDICAL HISTORY Diagnosis Date - Achilles tendinitis 02/10/2011 - Allergic rhinitis 02/27/2012 - Allergic rhinitis, cause unspecified - ASHD (arteriosclerotic heart disease) 09/13/2011 - Asthma 11/03/2014 - Cough syncope syndrome - Esophageal reflux Gastroesophageal reflux - Essential hypertension, benign - GERD (gastroesophageal reflux disease) - Hiatal hernia 06/17/2015 [facility] - see scanned documents - Hyperlipidemia LDL goal < 100 01/21/2013 - Peripheral vascular disease (HCC) - Pulmonary embolism on left (HCC) - Pulmonary embolus (HCC) 09/23/2017 left - Severe persistent asthma without complication - Severe persistent asthma, uncomplicated - Syncope 11/06/2017 and collapse Review of Systems Constitutional: Negative. Negative for chills, fever and malaise/fatigue. HENT: Positive for congestion, ear pain (right), sinus pain and sore throat. Respiratory: Positive for cough. Negative for sputum production, shortness of breath and wheezing. Cardiovascular: Negative for chest pain. Musculoskeletal: Negative for myalgias. Skin: Negative for rash. Neurological: Negative for headaches. Objective Physical Exam Constitutional: He is well-developed, well-nourished, and in no distress. HENT: Head: Normocephalic and atraumatic. Right Ear: Tympanic membrane, external ear and ear canal normal. Tympanic membrane is not injected, not erythematous, not retracted and not bulging. No middle ear effusion. Left Ear: Tympanic membrane, external ear and ear canal normal. Tympanic membrane is not injected, not erythematous, not retracted and not bulging. No middle ear effusion. Nose: Mucosal edema and rhinorrhea present. Right sinus exhibits maxillary sinus tenderness and frontal sinus tenderness. Left sinus exhibits maxillary sinus tenderness and frontal sinus tenderness. Mouth/Throat: Uvula is midline and mucous membranes are normal. Posterior oropharyngeal erythema present. No oropharyngeal exudate, posterior oropharyngeal edema or tonsillar abscesses. Eyes: Conjunctivae and EOM are normal. Pupils are equal, round, and reactive to light. Neck: Normal range of motion. Cardiovascular: Normal rate, regular rhythm and normal heart sounds. Pulmonary/Chest: Effort normal. No respiratory distress. He has no decreased breath sounds. He has wheezes (scattered). He has no rhonchi. He has no rales. A dry hacking cough was noted during this encounter. Talking in full sentences. Handling secretions without drooling. Lips and nailbeds are pink without cyanosis. Lymphadenopathy: Head (right side): No submental, no submandibular, no tonsillar, no preauricular and no posterior auricular adenopathy present. Head (left side): No submental, no submandibular, no tonsillar, no preauricular and no posterior auricular adenopathy present. He has no cervical adenopathy. Right cervical: No posterior cervical adenopathy present. Left cervical: No posterior cervical adenopathy present. Right: No supraclavicular adenopathy present. Left: No supraclavicular adenopathy present. Skin: Skin is warm and dry. Psychiatric: Affect normal. Nursing note and vitals reviewed. ASSESSMENT/PLAN: 1. URI with cough and congestion - ICD9: 465.9, ICD10: J06.9 (primary diagnosis) - Discussed viral etiology and rationale for treatment. You have a viral upper respiratory infection (i.e. Common cold) You need to rest as much as possible. Motrin or Tylenol as needed for fever or pain. Salt water gargles, chloraseptic spray or lozenges as needed for sore throat. Nasal saline irrigation at least 2 x day. Drink at least 8 glasses of fluids per day that aren't caffeinated. Eat a nutritious diet. Use a humidifier in your room at night. Tylenol (generic acetaminophen) 500 mg-2 tabs every 8 hrs. as needed for fever and aches Ibuprofen 600 mg (3-200mg tablets) every 6 hours -Mucinex (generic is fine) 1200 mg twice daily to help with cough and to thin out mucus 2. Moderate persistent asthma with (acute) exacerbation - ICD9: 493.92, ICD10: J45.41 Moderate persistent Asthma acute exacerbation - Avoidance of triggers recommended 3. Wheezing - ICD9: 786.07, ICD10: R06.2 Increase albuterol use to twice a day with nebulizer and inhaler as needed. Patient requesting antibiotic, advise not needed at this time, printed rx given post dated to start on Saturday if not improved Diagnosis and treatment plan were discussed and questions were answered to the patient's satisfaction. Pt acknowledged understanding of concepts and follow up plan. Specific signs and symptoms that would indicate the need for higher level of care were discussed in detail warranting prompt ER evaluation. MAX Franco APRN.CNP 03/25/2018 9:49 AM Addendum ASSESSMENT/PLAN: 1. URI with cough and congestion - ICD9: 465.9, ICD10: J06.9 (primary diagnosis) - Discussed viral etiology and rationale for treatment. You have a viral upper respiratory infection (i.e. Common cold) You need to rest as much as possible. Motrin or Tylenol as needed for fever or pain. Salt water gargles, chloraseptic spray or lozenges as needed for sore throat. Nasal saline irrigation at least 2 x day. Drink at least 8 glasses of fluids per day that aren't caffeinated. Eat a nutritious diet. Use a humidifier in your room at night. Tylenol (generic acetaminophen) 500 mg-2 tabs every 8 hrs. as needed for fever and aches Ibuprofen 600 mg (3-200mg tablets) every 6 hours -Mucinex (generic is fine) 1200 mg twice daily to help with cough and to thin out mucus 2. Moderate persistent asthma with (acute) exacerbation - ICD9: 493.92, ICD10: J45.41 Moderate persistent Asthma acute exacerbation - Avoidance of triggers recommended 3. Wheezing - ICD9: 786.07, ICD10: R06.2 Increase albuterol use to twice a day with nebulizer and inhaler as needed. Referring Provider: SELF [[id number]] Allergies As of Date: 03/25/2018 Noted Allergy Reaction PROPOFOL (PF) 11/17/2014 14 - Other: See Comments Comments: Did'nt wake up VICODIN (HYDROCODONE-ACETAMINOPHE*02/10/2011 14 - Other: See Comments Comments: Constipation, extreme sleepiness ADHESIVE TAPE (ROSINS) 10/28/2009 CLARITIN (LORATADINE) 12/15/2008 5 - Intolerance Comments: did not help with s/s LATEX 09/26/2012 9 - Itching NAPROSYN (NAPROXEN) 11/26/2005 8 - GI Upset SIMVASTATIN 01/13/2013 14 - Other: See Comments Comments: leg muscle cramping TETRACYCLINE 11/26/2005 8 - GI Upset VIBRAMYCIN (DOXYCYCLINE CALCIUM) 11/26/2005 8 - GI Upset Date Reviewed: 03/25/2018 Reviewed by: Sindhu Pereira LPN - Fully Assessed Reason for Visit: Pain, Sinus [857] Cmt: x 5-6 days Primary Visit Diagnosis:URI with cough and congestion [J06.9] Other Visit Diagnoses:Moderate persistent asthma with (acute) exacerbation [J45.41] Wheezing [R06.2] Order(s):predniSONE (DELTASONE) 20 mg tabletTake 2 tablets by mouth once daily for 5 days.Disp: 10 tabletRfl: 0 [START ON 03/29/2018] amoxicillin-clavulanic acid (AUGMENTIN) 875-125 mg per tabletTake 1 tablet by mouth twice daily for 10 days.Disp: 20 tabletRfl: 0 Prescriptions as of 03/25/2018 Sig: TRIAMCINOLONE ACETONIDE 55 MC* Use 2 Sprays in the nose once* CHLORPHENIRAMINE ER 12 MG TAB* Take 12 mg by mouth every 12 * NYSTATIN ORAL Take 5 mL by mouth three time* ATORVASTATIN 20 MG TABLET Take 1 tablet by mouth once d* FLUTICASONE 200 MCG-VILANTERO* Inhale 1 Inhalation as instru* OMEPRAZOLE 40 MG CAPSULE,RAVEN* Take 1 capsule by mouth once * ALBUTEROL SULFATE 2.5 MG/3 ML* Use 3 mL via nebulizer every * PROAIR HFA 90 MCG/ACTUATION A* AMLODIPINE 5 MG TABLET take 1 tablet by mouth once d* Patient taking differently: take 2 tablet by mouth once d* * MULTIVITAMIN TABLET Take one(1) tablet daily. 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 URI with cough and congestion - ICD9: 465.9, ICD10: J06.9 (primary diagnosis) - Discussed viral etiology and rationale for treatment. You have a viral upper respiratory infection (i.e. Common cold) You need to rest as much as possible. Motrin or Tylenol as needed for fever or pain. Salt water gargles, chloraseptic spray or lozenges as needed for sore throat. Nasal saline irrigation at least 2 x day. Drink at least 8 glasses of fluids per day that aren't caffeinated. Eat a nutritious diet. Use a humidifier in your room at night. Tylenol (generic acetaminophen) 500 mg-2 tabs every 8 hrs. as needed for fever and aches Ibuprofen 600 mg (3-200mg tablets) every 6 hours -Mucinex (generic is fine) 1200 mg twice daily to help with cough and to thin out mucus 2. Moderate persistent asthma with (acute) exacerbation - ICD9: 493.92, ICD10: J45.41 Moderate persistent Asthma acute exacerbation - Avoidance of triggers recommended 3. Wheezing - ICD9: 786.07, ICD10: R06.2 Increase albuterol use to twice a day with nebulizer and inhaler as needed. Prescriptions ordered this encounter Disp Refills Start End PREDNISONE 20 MG TABLET 10 t* 0 03/25/2018 03/30/2018 Route: ORAL Sig: Take 2 tablets by mouth once daily for 5 days. AMOXICILLIN 875 MG-POTASSIUM CLAVULA* 20 t* 0 03/29/2018 04/08/2018 Class: Print RX Route: ORAL Sig: Take 1 tablet by mouth twice daily for 10 days. Encounter Status:Closed by MYRANDA DUNN CNP on 03/25/18 Observed: 03/17/2018 Status: F Source: [facility] SURGICAL PATHOLOGY 9:08 AM SYSTEM REPOSITORY [id number] [facility] PATHOLOGY AND LABORATORY MEDICINE [address] [place], [place] [id number] FINAL SURGICAL PATHOLOGY REPORT NAME: DINESH CAO : 1960 57 Y M BILLING NO.: [id number] LOCATION: 1XEO PROCEDURE 03/17/2018 DATE: SURGEON: RYAN DEL VALLE M.D. RECEIVED 03/17/2018 DATE: ATTENDING: RYAN DEL VALLE M.D. REPORT DATE: 03/18/2018 COPIES TO: DIAGNOSIS: STOMACH, ANTRUM, BIOPSY - REACTIVE GASTROPATHY Comment: Evaluation of the H&E-stained sections shows no evidence of Helicobacter pylori or any morphologic features to suggest infection with the organism; as such, further studies for Helicobacter are not indicated. There is no evidence of intestinal metaplasia, dysplasia or malignancy. Reference: Payton KAMARA et al. Appropriate use of special stains for identifying Helicobacter pylori: Recommendations from the [employer] G[employer]. Am J Surg Pathol. 2013 Nov;37(11):e12-22. ASJ/0RW <Sign Out Dr. Morgan> CLEM CRANE M.D. CLINICAL INFORMATION: Gastroesophageal reflux disease SPECIMEN: GASTRIC BIOPSY GROSS DESCRIPTION: Stomach - antrum Received in formalin is one small piece of gonzalez-white soft tissue measuring 2 x 1 x 1 mm. (1 ns, 1) JAW/0RW Disclaimer: The following statement applies to all immunohistochemistry, in situ hybridization, molecular studies, and immunofluorescence testing. The use of one or more reagents in the above tests is regulated as an analyte specific reagent (ASR). These tests were developed and their performance characteristics determined by the clinical laboratories of [facility] [employer] [facility]. They have not been cleared by the US Food and Drug Administration (FDA). The FDA has determined that such clearance or approval is not necessary. All the above immunostains were performed on paraffin embedded tissue. Appropriate positive and negative controls (where applicable) were run in parallel with the patient's specimen; these controls showed expected staining pattern, with acceptable intensity of staining. Immunohistochemical assays have not been validated on decalcified tissues. Results should be interpreted with caution given the raised possibility of false negativity on decalcified specimens. Professional Performing Location: [address] [address]. DEPARTMENT OF PATHOLOGY AND LABORATORY MEDICINE [place], [place] [address] CARDIOLOGY VISIT Observed: 03/14/2018 Status: F Source: [facility] REPORT 4:07 PM [facility] REPOSITORY [facility] [address] [place] [address] OFFICE VISIT Date of Service: 03/14/18 MR#: [id number] Acct: [id number] Name: DINESH CAO Rep #: [id number] : 1960 Provider: GEORGINA Lara Age/Sex: 57/M Location: [facility] Status: Signed HPI HPI Details: DINESH CAO, is a 57 M who presents to the office today for a cardiovascular outpatient follow-up. 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 Since stopping his Eliquis 4 days ago, he states his coughing has been worse since and passed 3 times. These were similar episodes to the past. Pt denies chest, arm, jaw or neck discomfort. His exercise tolerance is stable. Pt denies symptoms of CHF or palpitations. Pt denies claudication issues. Pt. denies orthopnea, PND, blood in urine, blood in stool, fever, or chills, or myalgia. He states intermittent lower extremity edema. Pt. states some lightheadedness/dizziness with coughing episodes. 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 Is patient in pain?: No Allergies povidone-iodine [From Betadine] Adverse Reaction (Severe, Verified 03/14/18 15:19) Hives soap [From Betadine] Adverse Reaction (Severe, Verified 03/14/18 15:19) Hives adhesive tape Adverse Reaction (Verified 03/14/18 15:19) Rash benzoin Adverse Reaction (Verified 03/14/18 15:19) Rash doxycycline calcium [From Vibramycin] Adverse Reaction (Verified 03/14/18 15:19) constipation doxycycline hyclate [From Vibramycin] Adverse Reaction (Verified 03/14/18 15:19) constpation doxycycline monohydrate [From Vibramycin] Adverse Reaction (Verified 03/14/18 15:19) constipation hydrocodone bitartrate [From Vicodin] Adverse Reaction (Verified 03/14/18 15:19) constipation tetracycline [Tetracycline] Adverse Reaction (Verified 03/14/18 15:19) constipation Medications Atorvastatin Calcium [Lipitor] 20 mg PO QHS 06/17/15 [History Confirmed 03/14/18] Multivitamins,Therapeutic [Multivitamin] 1 tab PO DAILY 06/17/15 [History Confirmed 03/14/18] Acetaminophen [Tylenol Extra Strength] 1,000 mg PO BID 09/12/17 [History Confirmed 03/14/18] albuterol sulfate HFA 90 mcg/actuation aerosol inhaler 2 puff INHALATION Q6H PRN 09/25/17 [History Confirmed 03/14/18] omeprazole 20 mg tablet,delayed release 20 mg PO QDAY tab 09/25/17 [History Confirmed 03/14/18] amlodipine 10 mg tablet 10 mg PO QDAY #90 tab 09/27/17 [Rx Confirmed 03/14/18] apixaban 5 mg tablet 5 mg PO BID #180 tab 09/27/17 [Rx Confirmed 03/14/18] albuterol sulfate 2.5 mg/3 mL (0.083 %) solution for nebulization 2.5 mg INHALATION Q4H PRN ml 11/05/17 [History Confirmed 03/14/18] fluticasone 200 mcg-vilanterol 25 mcg/dose powder for inhalation 1 inh INHALATION Q24H #60 ea 11/29/17 [Rx Confirmed 03/14/18] montelukast 10 mg tablet 10 mg PO QPM #30 tab 01/29/18 [Rx Confirmed 03/14/18] chlorpheniramine 4 mg tablet 4 mg PO Q6H 03/14/18 [History Confirmed 03/14/18] PFSH Medical History Pulmonary embolism on left (Chronic) Peripheral vascular disease (Chronic) Asthma, severe persistent (Chronic) GERD (gastroesophageal reflux disease) (Chronic) Aspiration pneumonia of right lower lobe (Acute) Chronic cough (Chronic) Hypersomnia (Acute) PND (paroxysmal nocturnal dyspnea) (Acute) Benign essential hypertension (Chronic) Syncope and collapse (Acute) Acute left lower lobe peripheral PE (Inactive) GERD (gastroesophageal reflux disease) (Inactive) Partially treated aspiration pneumonia (Inactive) 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) Surgical History History of sinus surgery (Resolved) History of vein stripping (Resolved) History of knee surgery (Resolved) History of vasectomy (Resolved) Hx of appendectomy (Resolved) History of cholecystectomy (Resolved) Family History Brother Hypertension Social History Smoking Status: Never smoker second hand exposure: No alcohol intake: never substance use type: does not use ROS Const Const: Negative for weakness, body ache, fever(s), chills or fatigue ENT ENT: Positive for dizziness Cardio Chest Pain: No Palpitations: No Edema: Bilateral Muscle aches with walking: None Resp Respiratory: Positive for Cough; negative for SOB with activity, SOB at rest, SOB orthopnea\SOB lying down or paroxysmal nocturnal dyspnea GI GI: Negative nausea, black,tarry stools, bright, red blood in stools or vomiting blood/hematemesis : Negative for hematuria or frequent nighttime urination/ nocturia Musc Musc: Negative for muscle aches/ myalgia Skin Skin: Negative non-healing lesions or rash Neuro Neuro: Positive for lightheadedness, syncope and dizziness; negative for near syncope, orthostatic symptoms or weakness Endo Endo: Negative for fatigue Allergy Allergy/Immunology: Negative for rash Cardiology Exam Const Appearance: cooperative, healthy appearing, comfortable, no acute distress, well developed and well groomed Nutritional Appearance: average body habitus Orientation: alert, awake and oriented x3 Head Head: normal to inspection, normocephalic and atraumatic Ears: hearing grossly normal bilaterally Nose: external nose normal Face and Sinus: face symmetric Mouth: oral mucosae normal Teeth and gingiva: dentition normal Eyes General: appearance normal, both eyes and all related structures Eyelids: eyelids normal Pupils: PERRL EOM: EOM intact bilaterally Neck Neck: normal visual inspection and full ROM Carotids: normal carotid upstroke Chest Chest inspection: normal inspection of the chest and symmetric chest movement Auscultation: Bilateral: Clear to Auscultation Cardio Palpation: normal PMI Rate: regular rate Heart sounds: S1 normal and S2 normal GI GI: normal to inspection, soft, no hepatosplenomegaly and bowel sounds present Neuro General: alert, awake and oriented x3 Skin Skin: no rashes or lesions noted Extremities Pulses: Normal: Right Femoral Pulse, Left Femoral Pulse, Right Radial Pulse, Left Radial Pulse Lower Extremity Edema: +1: Left Musculoskel Musculoskeletal: joint tenderness (Left Ankle) Psych Psychological: normal affect Supplemental Info Echocardiogram from September 2017 showed normal LV size, estimated ejection fraction of 65%, and pulmonary artery systolic pressure of 43 mmHg, mild pulmonary hypertension. Stress test from October 2009 was negative for myocardial induced ischemia and showed a preserved ejection fraction. Pulmonary function test from December 2017 was essentially within normal limits. Assessment AND Plan 1. Syncope and collapse R55 Plan Patient does acknowledge 3 episodes of syncope. These appear compatible to episodes that he has had in the past that are centered around episodes of coughing. He does have further evaluation of his esophagus to discern if his a surgery in the past needs to be re-done/reevaluated. His blood pressure is well-controlled today in office. He will continue current medications and we will continue to monitor. 2. Benign essential hypertension I10 Plan Patient's blood pressure is well-controlled today in the office. We will continue to monitor this. We will not make any medication regimen changes. 3. Pulmonary embolism on left I26.99 Left Lower Lobe Plan Patient has completed his 6 month course of Eliquis. His VQ lung scan in October 2017 showeda low likelihood of thromboembolic pulmonary hypertension. He will continue to follow-up with pulmonology for this. We will continue to monitor. Plan Detail Other Medications New: Discontinued: triamcinolone acetonide administer into each nostril; wait 302 sprays Intranasal QDAY seconds between sprays Discontinued Reason: Pt no longer silvina chavis Additional Comments Thank you for allowing us to participate in the patients plan of care, if you have any questions please do not hesitate to call. This note was generated using a voice recognition system and there may be incorrect words, spelling or punctuation that were not noted when reviewing the office note prior to saving. Follow Up 12 Months (PFM) 6 Months ([facility]MINISTRATOR/PA) Coding Level of Care Code Off vis,est,level 3 Diagnoses Syncope and collapse R55 Benign essential hypertension I10 Pulmonary embolism on left I26.99 Coding Level of Care Code Off vis,est,level 3 Diagnoses Syncope and collapse R55 Benign essential hypertension I10 Pulmonary embolism on left I26.99 03/14/18 1607 <Electronically signed by Fletcher MCLEAN> Date Fletcher MCLEAN Cosigner Signature: Date (if applicable) CC: Jeannette Mosqueda III, MD PROGRESS Observed: 02/26/2018 Status: COMPLETED Source: [place] 8:35 AM [facility] REPOSITORY [facility] ID: [id number] Author: Jeannette Mosqueda III Service: (none) Author Type: Physician Type: Progress Notes Filed: 02/26/2018 9:58 AM Note Text: SUBJECTIVE: This is a 57 year old male that is here today for Chronic Medical Conditions. 1. Some hypoglycemia episodes, as low as 57 after walking. . Becomes symptomatic <70 2. hypertension 3. hyperlipidemia--lipitor causing cramps 4. GERD s/p fundoplication, but has a dehiscence and may require additional surgery. Must limit carbonated beverages. 5. asthma: breo helping but he has thrush for which he takes nystatin PAST MEDICAL HISTORY Diagnosis Date - Achilles tendinitis 02/10/2011 - Allergic rhinitis 02/27/2012 - Allergic rhinitis, cause unspecified - ASHD (arteriosclerotic heart disease) 09/13/2011 - Asthma 11/03/2014 - Cough syncope syndrome - Esophageal reflux Gastroesophageal reflux - Essential hypertension, benign - GERD (gastroesophageal reflux disease) - Hiatal hernia 06/17/2015 [facility] - see scanned documents - Hyperlipidemia LDL goal < 100 01/21/2013 - Peripheral vascular disease (HCC) - Pulmonary embolism on left (HCC) - Pulmonary embolus (HCC) 09/23/2017 left - Severe persistent asthma without complication - Severe persistent asthma, uncomplicated - Syncope 11/06/2017 and collapse PAST SURGICAL HISTORY Procedure Laterality Date - APPENDECTOMY 1988 - COLONOSCOP W/ OR W/O [facility] SPEC 11/17/14 Colonoscopy - EGD W/O OR W/BRUSH/WASH 11/17/14 EGD - KNEE SCOPE,DIAGNOSTIC 08/31/2009 Arthroscopy, knee right [facility] - LAPAROSCOPIC CHOLEYCYSTECTOMY 1999 Cholecystectomy, lap - NASAL SEPTUM REPOS W STABILIZATION 06/2010 - PAST SURGICAL HISTORY OF ruptured valve on back of right knee - PAST SURGICAL HISTORY OF 08/31/09 repair of a torn mansicus - REVISE SECONDARY VARICOSITY 2003 Varicose Vein Surgery, BLE - VASECTOMY 1999 Current Outpatient Prescriptions on File Prior to Visit: fluticasone-vilanterol (BREO ELLIPTA) 200-25 mcg/dose inhaler Inhale 1 Inhalation as instructed once daily. Omeprazole 40 mg capsule Take 1 capsule by mouth once daily. apixaban (ELIQUIS) 5 mg tab tab(s) Take 10 mg by mouth twice daily. albuterol (PROVENTIL) 2.5 mg /3 mL (0.083 %) nebulizer solution Use 3 mL via nebulizer every 4 hours as needed for Wheezing/Shortness of Breath. Use over 5-15minutes. PROAIR HFA 90 mcg/actuation inhaler amLODIPine (NORVASC) 5 mg tablet take 1 tablet by mouth once daily (Patient taking differently: take 2 tablet by mouth once daily) multivitamin ORAL tablet Take one(1) tablet daily. atorvastatin (LIPITOR) 20 mg tablet take 1 tablet by mouth once daily (Patient not taking: Reported on 02/26/2018 ) No current facility-administered medications on file prior to visit. FAMILY HISTORY Problem Relation Age of Onset - Hypertension Mother - renal stones [Other] [OTHER] Father - Diabetes Son - GERD [Other] [OTHER] Brother Social History Substance Use Topics - Smoking status: Never Smoker - Smokeless tobacco: Never Used - Alcohol use No BP 124/74 Pulse 62 Resp 18 Wt 108.9 kg (240 lb) BMI 33.47 kg/m? . OBJECTIVE: APPEARANCE Well appearing, alert, in no acute distress, well-hydrated, well nourished., Obese Lab Results for DINESH CAO ( ) as of 02/26/2018 08:36 Ref. Range 02/20/2018 08:31 Sodium Latest Ref Range: 136 - 144 mmol/L 143 Potassium Latest Ref Range: 3.7 - 5.1 mmol/L 3.9 Chloride Latest Ref Range: 97 - 105 mmol/L 103 CO2 Latest Ref Range: 22 - 30 mmol/L 29 BUN Latest Ref Range: 9 - 24 mg/dL 9 Creatinine Latest Ref Range: 0.73 - 1.22 mg/dL 0.98 Glucose Latest Ref Range: 74 - 99 mg/dL 89 Calcium Latest Ref Range: 8.5 - 10.2 mg/dL 9.1 Anion Gap Latest Ref Range: 9 - 18 mmol/L 11 eGFR- Unknown >60 eGFR-All Other Races Latest Units: . >60 Cholesterol, Total Latest Ref Range: <200 mg/dL 161 Triglyceride Latest Ref Range: <150 mg/dL 77 Fasting Time Latest Units: hrs 10 HDL Cholesterol Latest Ref Range: >39 mg/dL 52 LDL Cholesterol Latest Ref Range: <100 mg/dL 94 VLDL Cholesterol Latest Ref Range: <30 mg/dL 15 TC:HDL Ratio Latest Ref Range: <5.10 3.10 LDL:HDL Ratio Latest Ref Range: <2.54 1.81 Non HDL Cholesterol Latest Ref Range: <130 mg/dL 109 ASSESSMENT: hypertension--at goal hyperlipidemia--at goal asthma-well controlled thrush due to breo obesity hypoglycemia due to high sugar diet--no evidence of diabetes mellitus hx of PE --on eliquis since end of Sep 2017 PLAN: healthy weight losing diet and regular exercise eat less sugar, bread, potato, pasta, rice, corn, corn syrup, saturated fats same medications follow up with Dr Doyle regarding replacement for breo hold eliquis 24-48 hrs prior to surgeries/procedures plan to stop eliquis end of March TEO Manjarrez MD Observed: 02/26/2018 Status: COMPLETED Source: [place] 8:20 AM [facility] REPOSITORY Office Visit (FAMPWS) JILLJOEN Vivek ([id number]) 1960 M Date Time Provider Department 02/26/18 8:20 AM JEANNETTE MOSQUEDA III During your visit today, we recorded the following information about you: Pulse Respiration Blood pressure Weight 62/minute 18/minute 124/74 108.9 kg Jeannette Mosqueda III MD 02/26/2018 9:58 AM Signed SUBJECTIVE: This is a 57 year old male that is here today for Chronic Medical Conditions. 1. Some hypoglycemia episodes, as low as 57 after walking. . Becomes symptomatic <70 2. hypertension 3. hyperlipidemia--lipitor causing cramps 4. GERD s/p fundoplication, but has a dehiscence and may require additional surgery. Must limit carbonated beverages. 5. asthma: breo helping but he has thrush for which he takes nystatin PAST MEDICAL HISTORY Diagnosis Date - Achilles tendinitis 02/10/2011 - Allergic rhinitis 02/27/2012 - Allergic rhinitis, cause unspecified - ASHD (arteriosclerotic heart disease) 09/13/2011 - Asthma 11/03/2014 - Cough syncope syndrome - Esophageal reflux Gastroesophageal reflux - Essential hypertension, benign - GERD (gastroesophageal reflux disease) - Hiatal hernia 06/17/2015 [facility] - see scanned documents - Hyperlipidemia LDL goal < 100 01/21/2013 - Peripheral vascular disease (HCC) - Pulmonary embolism on left (HCC) - Pulmonary embolus (HCC) 09/23/2017 left - Severe persistent asthma without complication - Severe persistent asthma, uncomplicated - Syncope 11/06/2017 and collapse PAST SURGICAL HISTORY Procedure Laterality Date - APPENDECTOMY 1988 [facility] Colonoscopy - EGD W/O OR W/BRUSH/WASH 11/17/14 EGD - KNEE SCOPE,DIAGNOSTIC 08/31/2009 Arthroscopy, knee right [facility] - LAPAROSCOPIC CHOLEYCYSTECTOMY 1999 Cholecystectomy, lap - NASAL SEPTUM REPOS W STABILIZATION 06/2010 - PAST SURGICAL HISTORY OF ruptured valve on back of right knee - PAST SURGICAL HISTORY OF 08/31/09 repair of a torn mansicus - REVISE SECONDARY VARICOSITY 2003 Varicose Vein Surgery, BLE - VASECTOMY 1999 Current Outpatient Prescriptions on File Prior to Visit: fluticasone-vilanterol (BREO ELLIPTA) 200-25 mcg/dose inhaler Inhale 1 Inhalation as instructed once daily. Omeprazole 40 mg capsule Take 1 capsule by mouth once daily. apixaban (ELIQUIS) 5 mg tab tab(s) Take 10 mg by mouth twice daily. albuterol (PROVENTIL) 2.5 mg /3 mL (0.083 %) nebulizer solution Use 3 mL via nebulizer every 4 hours as needed for Wheezing/Shortness of Breath. Use over 5-15minutes. PROAIR HFA 90 mcg/actuation inhaler amLODIPine (NORVASC) 5 mg tablet take 1 tablet by mouth once daily (Patient taking differently: take 2 tablet by mouth once daily) multivitamin ORAL tablet Take one(1) tablet daily. atorvastatin (LIPITOR) 20 mg tablet take 1 tablet by mouth once daily (Patient not taking: Reported on 02/26/2018 ) No current facility-administered medications on file prior to visit. FAMILY HISTORY Problem Relation Age of Onset - Hypertension Mother - renal stones [Other] [OTHER] Father - Diabetes Son - GERD [Other] [OTHER] Brother Social History Substance Use Topics - Smoking status: Never Smoker - Smokeless tobacco: Never Used - Alcohol use No BP 124/74 Pulse 62 Resp 18 Wt 108.9 kg (240 lb) BMI 33.47 kg/m? . OBJECTIVE: APPEARANCE Well appearing, alert, in no acute distress, well- hydrated, well nourished., Obese Lab Results for DINESH CAO ( ) as of 02/26/2018 08:36 Ref. Range 02/20/2018 08:31 Sodium Latest Ref Range: 136 - 144 mmol/L 143 Potassium Latest Ref Range: 3.7 - 5.1 mmol/L 3.9 Chloride Latest Ref Range: 97 - 105 mmol/L 103 CO2 Latest Ref Range: 22 - 30 mmol/L 29 BUN Latest Ref Range: 9 - 24 mg/dL 9 Creatinine Latest Ref Range: 0.73 - 1.22 mg/dL 0.98 Glucose Latest Ref Range: 74 - 99 mg/dL 89 Calcium Latest Ref Range: 8.5 - 10.2 mg/dL 9.1 Anion Gap Latest Ref Range: 9 - 18 mmol/L 11 eGFR- Unknown >60 eGFR-All Other Races Latest Units: . >60 Cholesterol, Total Latest Ref Range: <200 mg/dL 161 Triglyceride Latest Ref Range: <150 mg/dL 77 Fasting Time Latest Units: hrs 10 HDL Cholesterol Latest Ref Range: >39 mg/dL 52 LDL Cholesterol Latest Ref Range: <100 mg/dL 94 VLDL Cholesterol Latest Ref Range: <30 mg/dL 15 TC:HDL Ratio Latest Ref Range: <5.10 3.10 LDL:HDL Ratio Latest Ref Range: <2.54 1.81 Non HDL Cholesterol Latest Ref Range: <130 mg/dL 109 ASSESSMENT: hypertension--at goal hyperlipidemia--at goal asthma-well controlled thrush due to breo obesity hypoglycemia due to high sugar diet--no evidence of diabetes mellitus hx of PE --on eliquis since end Sep 2017 PLAN: healthy weight losing diet and regular exercise eat less sugar, bread, potato, pasta, rice, corn, corn syrup, saturated fats same medications follow up with Dr Doyle regarding replacement for breo hold eliquis 24-48 hrs prior to surgeries/procedures plan to stop eliquis end march TEO Manjarrez MD, III MD 02/26/2018 8:52 AM Signed PLAN: healthy weight losing diet and regular exercise eat less sugar, bread, potato, pasta, rice, corn, corn syrup, saturated fats same medications follow up with Dr Doyle regarding replacement for breo hold eliquis 24-48 hrs prior to surgeries/procedures plan to stop eliquis end of March Jeannette Mosqueda III MD Referring Provider: SELF [[id number]] Allergies As of Date: 02/26/2018 Noted Allergy Reaction PROPOFOL (PF) 11/17/2014 14 - Other: See Comments Comments: Did'nt wake up VICODIN (HYDROCODONE-ACETAMINOPHE*02/10/2011 14 - Other: See Comments Comments: Constipation, extreme sleepiness ADHESIVE TAPE (ROSINS) 10/28/2009 CLARITIN (LORATADINE) 12/15/2008 5 - Intolerance Comments: did not help with s/s LATEX 09/26/2012 9 - Itching NAPROSYN (NAPROXEN) 11/26/2005 8 - GI Upset SIMVASTATIN 01/13/2013 14 - Other: See Comments Comments: leg muscle cramping TETRACYCLINE 11/26/2005 8 - GI Upset VIBRAMYCIN (DOXYCYCLINE CALCIUM) 11/26/2005 8 - GI Upset Date Reviewed: 02/26/2018 Reviewed by: Giana (Lia) SARAH Orellana - Fully Assessed Reason for Visit: Low blood sugars [Other] Cmt: x3 weeks, lowest was 57, once it gets around 70-starts feeling lethargic Primary Visit Diagnosis:Essential hypertension, benign [I10] Other Visit Diagnoses:Hyperlipidemia with target LDL less than 100 [E78.5] Severe persistent asthma without complication [J45.50] 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 [Z79.01] Hypoglycemia [E16.2] Order(s):atorvastatin (LIPITOR) 20 mg tabletTake 1 tablet by mouth once daily.Disp: 90 tabletRfl: 1 Prescriptions as of 02/26/2018 Sig: TRIAMCINOLONE ACETONIDE 55 MC* Use 2 Sprays in the nose once* CHLORPHENIRAMINE ER 12 MG TAB* Take 12 mg by mouth every 12 * NYSTATIN ORAL Take 5 mL by mouth three time* FLUTICASONE 200 MCG-VILANTERO* Inhale 1 Inhalation as instru* OMEPRAZOLE 40 MG CAPSULE,RAVEN* Take 1 capsule by mouth once * APIXABAN 5 MG TABLET Take 10 mg by mouth twice mukund* ALBUTEROL SULFATE 2.5 MG/3 ML* Use 3 mL via nebulizer every * PROAIR HFA 90 MCG/ACTUATION A* AMLODIPINE 5 MG TABLET take 1 tablet by mouth once d* Patient taking differently: take 2 tablet by mouth once d* * MULTIVITAMIN TABLET Take one(1) tablet daily. 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] INVALID FOR*10/04/2014 Asthma [J45.909] INVALID FOR*08/16/2017 Cough syncope [R05] INVALID FOR* Severe persistent asthma without complication [*INVALID FOR* Pulmonary embolus (HCC) [I26.99] 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 Medications Discontinued During This Encounter meloxicam (MOBIC) 7.5 mg tablet 90 t* 3 09/10/2017 02/26/2018 Route: ORAL Sig: Take 1 tablet by mouth once daily. Take with food. Patient not taking: Reported on 02/26/2018 Disc: Other ipratropium bromide (ATROVENT) 0.06 * 06/12/2017 02/26/2018 Class: Historical Med Sig: Disc: Course of therapy completed Azelastine 0.15 % (205.5 mcg) spry 05/21/2017 02/26/2018 Class: Historical Med Sig: Disc: Course of therapy completed atorvastatin (LIPITOR) 20 mg tablet 90 t* 1 01/23/2018 02/26/2018 Route: ORAL Sig: take 1 tablet by mouth once daily Patient not taking: Reported on 02/26/2018 Disc: Reason for discontinue is not on file. Encounter Status:Closed by JEANNETTE MOSQUEDA III, MD on 02/26/18 PULMONARY VISIT REPORT Observed: 02/24/2018 Status: F Source: [place] 9:05 AM [facility] [place] REPOSITORY [facility] [address] [place] [address] OFFICE VISIT Date of Service: 02/24/18 MR#: [id number] Acct: [id number] Name: DINESH CAO Rep #: [id number] : 1960 Provider: Karen López Age/Sex: 57/M Location: [facility] Status: Signed Assessment AND Plan 1. Severe persistent asthma without complication J45.50 Status Chronic Plan He has responded well to the addition of the Singulair, we will continue the hcay-zyx-umtbley allergy pill in addition to the Nasacort and Breo he was on previously. We will give him 3 months to evaluate his symptom management on the next therapy. He will follow-up with Dr. Doyle in 3 months. No additional testing at this time. We did discuss that his IgE level and previous eosinophil level were both noted to be elevated and Xolair versus Nucala may be appropriate if he has frequent exacerbations or if his symptoms are not managed on maximal therapy. Patient conveys understanding and he is agreeable. He has been encouraged to contact the office with any signs or symptoms of exacerbation in the meantime. Symptoms were reviewed, patient conveys understanding. She does 2. Postnasal drip R09.82 Status Acute Plan Continue Nasacort and Singulair, as well as xlel-wwo-kfwayso allergy pill. No additional testing at this time. 3. Thrush, oral B37.0 Plan New. Will treat with nystatin 5 ml swish and swallow TID x 10 days. Patient has been encouraged to evaluate the thrush that was identified on exam today when he returns home, he is also encouraged to monitor his response to the nystatin over the next 10-14 days. Plan Detail Other Medications New: nystatin swish and swallow 5 cc three times per day for 10 da5 mL Mucous Membrane TID ys Follow Up 3 Months (BWA) HPI HPI Comments Details: Labs prior. Patient reports coughing is better but when he coughs he coughs hard. Stated he can now sleep through the night since the start of montelukast. Has only used his rescue inhaler once since the last visit. Pt reports he has to have surgery again in March on his esophagus it came loose. His dr stated it was probably from the forceful coughing. In turn having difficulty swallowing. Dinesh a 57 year old male presented to office for f/u on Rast test results, cough and reassessment of clear nasal drainage. He has not been seen in the ED/Urgent care since his last office visit. He has not been treated for an exacerbation with antibiotics or prednisone. Patient stated he has been coughing at least 2-4 x/day during eating, drinking and out of the blue. He describes the cough as dry and forceful. He stated montelukast has improved his cough and helped his clear nasal drainage. He only used his ProAIR HFA inhaler x1 from last visit to this office and continues to use his Breo Ellipta daily. He denies any medication side effects such as sore throat or thrush. He does report rinsing his mouth out after each use of Breo. He has not added any bqrm-erf-jmromuo medications. He is compliant with Nasacort, whoo-ail-nvnkmll Claritin (as previously), in addition to the Breo and the Singulair. He recently had a swallowing evaluation completed last week d/t cough that was ordered by Dr. Del Valle from [facility]. He has had a cough for the past 4-5 years. He had a history of esophagus surgery two years prior by Dr. Del Valle and is having a endoscopy on March 17, 2018. He denies fever, chills, n/v, productive cough, chest pain or tightness, wheezing or SOB. He denies any hemoptysis. See complete review of systems. Test results reviewed with the patient: Laboratory Tests Eos % (Auto) 5.3 H Alternar. alternata IgE <0.10 Intake Vital Signs02/24/18 Height 5 ft 11 in 02/24/18 Weight: 246 lb Intake Visit Reasons: 1 M FU Chief Complaint: Cough Accompanied by: Self Allergies povidone-iodine [From Betadine] Adverse Reaction (Severe, Verified 02/24/18 08:07) Hives soap [From Betadine] Adverse Reaction (Severe, Verified 02/24/18 08:07) Hives adhesive tape Adverse Reaction (Verified 02/24/18 08:07) Rash benzoin Adverse Reaction (Verified 02/24/18 08:07) Rash doxycycline calcium [From Vibramycin] Adverse Reaction (Verified 02/24/18 08:07) constipation doxycycline hyclate [From Vibramycin] Adverse Reaction (Verified 02/24/18 08:07) constpation doxycycline monohydrate [From Vibramycin] Adverse Reaction (Verified 02/24/18 08:07) constipation hydrocodone bitartrate [From Vicodin] Adverse Reaction (Verified 02/24/18 08:07) constipation tetracycline [Tetracycline] Adverse Reaction (Verified 02/24/18 08:07) constipation Medications Atorvastatin Calcium [Lipitor] 20 mg PO QHS 06/17/15 [History Confirmed 02/24/18] Multivitamins,Therapeutic [Multivitamin] 1 tab PO DAILY 06/17/15 [History Confirmed 02/24/18] Acetaminophen [Tylenol Extra Strength] 1,000 mg PO BID 09/12/17 [History Confirmed 02/24/18] albuterol sulfate HFA 90 mcg/actuation aerosol inhaler 2 puff INHALATION Q6H PRN 09/25/17 [History Confirmed 02/24/18] omeprazole 20 mg tablet,delayed release 20 mg PO QDAY tab 09/25/17 [History Confirmed 02/24/18] amlodipine 10 mg tablet 10 mg PO QDAY #90 tab 09/27/17 [Rx Confirmed 02/24/18] apixaban 5 mg tablet 5 mg PO BID #180 tab 09/27/17 [Rx Confirmed 02/24/18] albuterol sulfate 2.5 mg/3 mL (0.083 %) solution for nebulization 2.5 mg INHALATION Q4H PRN ml 11/05/17 [History Confirmed 02/24/18] fluticasone 200 mcg-vilanterol 25 mcg/dose powder for inhalation 1 inh INHALATION Q24H #60 ea 11/29/17 [Rx Confirmed 02/24/18] montelukast 10 mg tablet 10 mg PO QPM #30 tab 01/29/18 [Rx Confirmed 02/24/18] triamcinolone acetonide 55 mcg nasal spray aerosol 2 spray INTRANASAL QDAY #16.9 ml 01/29/18 [Rx Confirmed 02/24/18] nystatin 100,000 unit/mL oral suspension 5 ml MUCOUS MEMBRANE TID #250 ml 02/24/18 [Rx Confirmed 02/24/18] PFSH Medical History Pulmonary embolism on left (Chronic) Peripheral vascular disease (Chronic) Asthma, severe persistent (Chronic) GERD (gastroesophageal reflux disease) (Chronic) Aspiration pneumonia of right lower lobe (Acute) Chronic cough (Chronic) Hypersomnia (Acute) PND (paroxysmal nocturnal dyspnea) (Acute) Benign essential hypertension (Chronic) Syncope and collapse (Acute) Acute left lower lobe peripheral PE (Inactive) GERD (gastroesophageal reflux disease) (Inactive) Partially treated aspiration pneumonia (Inactive) 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) Surgical History History of sinus surgery (Resolved) History of vein stripping (Resolved) History of knee surgery (Resolved) History of vasectomy (Resolved) Hx of appendectomy (Resolved) History of cholecystectomy (Resolved) Family History Brother Hypertension Social History Smoking Status: Never smoker second hand exposure: No alcohol intake: never substance use type: does not use Review of Systems Const CONSTITUTIONAL: Negative anorexia, body ache, chills, daytime sleepiness, fever(s), night sweats, oral thrush, stops breathing during sleep, weight loss, sleeping in chair, fatigue, weight loss, weight gain, frequent colds, seasonal allergies, other, headache(s) or orthopnea EETM Ear Nose Throat Mouth: Positive hearing normal and swallowing Difficulty; negative hard of hearing, hoarseness, dry mouth in morning, change in vision, itchy eyes, eye pain, ear pain, nose bleed, headache(s), mouth pain, nasal congestion, nasal discharge, post nasal drip, sinus pain, sinus pressure, sore throat or other Cardio Cardiovascular: Negative chest pain, chest pain at rest, chest pain with activity, irregular heart rhythm, edema, shortness of breath when lying down, palpitations, murmur or other Resp Respiratory: Positive as per HPI, shortness of breath shortness of breath: Positive with activity and cough; negative pain with cough, wheezing, chest congestion, chest tightness, pain on inspiration, inhalers, increase use of rescue inhalers, snoring, apnea or other Gastro Gastrointestional: Positive difficulty swallowing; negative bloody stools, change in appetite, reflux, hematemesis, melena stool, loose stool, constipation or other Genitourinary: Negative blood in urine, nocturia, pain with urination or other Musc Musculoskeletal: Negative body pain, back pain, neck pain or other Skin/Breast Skin/Breast: Negative dry skin, itching, rash, unusual bruising, breast lump or other Neuro Neurological: Negative restless legs, confusion, weakness or other Psych Psychocological: Negative abnormal sleep pattern, anxiety, thoughts of hurting self/others, hopelessness or other Lymph Lymphatic: Negative easy bleeding, easy bruising, swollen lymph nodes or other Exam Const Constitutional: Positive conversant, cooperative, in no acute respiratory distress, healthy appearing, well developed, well nourished, good hygiene and obese Head Head: Positive normocephalic and atraumatic; negative cyanosis of lips/distal nose Eyes Eye: Positive clear conjunctiva; negative nystagmus Ears Ear: Positive hearing normal and external ears normal; negative hard of hearing Nose Nose: Positive external nose normal and no nasal discharge; negative epistaxis Mouth Mouth: Positive oral thrush present, good dentition and posterior oropharynx is adequate; negative post nasal drip or malodorous breath Mallampati Score: II: Mallampati Score post nasal drip; thrush noted to tongue and roof of mouth Neck Neck: Positive normal visual inspection, thick neck, full ROM and trachea midline Chest Wall Chest: Positive normal inspection of the chest and symmetric chest movement Resp lung sounds: Positive clear to auscultation, good air exchange and normal respiratory effort; negative diminished, wheezes, wheeze present on forced exhalation, rhonchi or rales Cardio Cardiac: Positive regular rate, regular rhythm, S1 normal and S2 normal; negative murmur GI GI: Positive obese Genitourinary: Positive deferred Musc Musculoskeletal: Positive steady gait and ROM normal; negative kyphosis or scoliosis Skin Pulmonary Skin Exam: Positive intact; negative rash, lesion, ulcers, erythema, scaly or dermal atrophy Pulses Pulse: Yes pulses normal x4 extremities Extremities Extremities: Yes capillary refill normal, No clubbing, No cyanosis, No edema Neuro Neurologic: Yes conversant, Yes no focal neuro deficits, Yes cooperative, Yes normal cognition, Yes normal coordination, Yes normal concentration, Yes understands questions Lymph Lymphatic: No lymphadenopathy, No tenderness, No cervical adenopathy, No axillary adenopathy Psych Appearance: Positive grossly normal, eye contact and well kempt Mental Status: Positive mental status grossly normal Mood: Positive congruent mood Affect: Positive normal affect Coding Level of Care Code Off vis,est,level 4 Diagnoses Severe persistent asthma without complication J45.50 Asthma complication type: uncomplicated Postnasal drip R09.82 Thrush, oral B37.0 02/24/18 0905 <Electronically signed by Karen MCLEAN> Date Karen MCLEAN Cosigner Signature: Date (if applicable) CC: Jeannette Mosqueda III, MD PROGRESS Observed: 02/20/2018 Status: COMPLETED Source: [place] 6:31 PM [facility] REPOSITORY HNO ID: [id number] Author: Jeannette Mosqueda III Service: (none) Author Type: Physician Type: Progress Notes Filed: 02/20/2018 6:31 PM Note Text: Dinesh, Lab results look fine. We'll discuss in more detail at the upcoming appointment. Jeannette Mosqueda III, MD, [facility] BAS[facility] METABOLIC PANL Collected: 02/20/2018 Status: F Source: [place] 8:31 AM [facility] REPOSITORY TYPE CODE TESTS RESULT OUT OF REFERENCE UNITS RANGE LAB GLU 74-99 mg/dL Glucose 89 Result Comment: The [place] Diabetes Association (ADA) provides guidance for cutoff values for fasting glucose and random glucose. The ADA defines fasting as no caloric intake for at least 8 hours. Fas ting plasma glucose results between 100 to 125 mg/dL indicate increased risk for diabetes (prediabetes). Fasting plasma glucose results greater than or equal to 126 mg/dL meet the criteria for diagnosis of diabetes. In the absence of unequivocal hyperglycemia, results should be confirmed by repeat testing. In a patient with classic symptoms of hyperglycemia or hyperglycemic crisis, random plasma glucose results greater than or equal to 200 mg/dL meet the criteria for diagnosis of diabetes. Reference: Standards of Medical Care in Diabetes 2016, [place] [employer] Association. Diabetes Care. 2016.39(Suppl 1). LAB BUN 9-24 mg/dL BUN 9 LAB CRET 0.73-1.22 mg/dL Creatinine 0.98 LAB NA 136-144 mmol/L Sodium 143 LAB K 3.7-5.1 mmol/L Potassium 3.9 LAB CL 97-105 mmol/L Chloride 103 LAB CO2 22-30 mmol/L CO2 29 LAB AGAP 9-18 mmol/L Anion Gap 11 LAB CA 8.5-10.2 mg/dL Calcium, Total 9.1 LAB GFRAA eGFR- Amer. >60 LAB GFRNAA . eGFR-All Other Races >60 Result Comment: eGFR (Estimated GFR) Units of measure: mL/min/1.73 meters squared eGFR is derived from the reexpressed MDRD Study equation using the following parameters: serum creatinine, age, gender and race. The creatinine assay has been calibrated to be traceable to IDMS. An eGFR <60 mL/min/1.73m2 for >3 months is consistent with chronic kidney disease. Refer to KDOQI guidelines for clinical interpretation. In patients with unstable renal function, e.g. those with acute kidney injury, the eGFR may not accurately reflect actual GFR. Performed By: #### BMP, LIPB #### [facility] [address] [place], [place] [address] LIPID PANEL, BASIC Collected: 02/20/2018 Status: F Source: [place] 8:31 AM [facility] [place] REPOSITORY TYPE CODE TESTS RESULT OUT OF REFERENCE UNITS RANGE LAB CHOL <200 mg/dL Cholesterol 161 Result Comment: <200 mg/dL, Desirable 200-239 mg/dL, Borderline high >239 mg/dL, High LAB TRIGLY <150 mg/dL Triglyceride 77 Result Comment: <150 mg/dL, Normal 150-199 mg/dL, Borderline high 200-499 mg/dL, High >499 mg/dL, Very high LAB HDL >39 mg/dL HDL-Cholesterol 52 Result Comment: 40-59 mg/dL, Acceptable >59 mg/dL, High: Negative risk factor for coronary heart disease <40 mg/dL, Low: Positive risk factor for coronary heart disease LAB LDL <100 mg/dL LDL-Cholesterol 94 Result Comment: <100 mg/dL, Optimal 100-129 mg/dL, Near optimal/above optimal 130-159 mg/dL, Borderline high 160-189 mg/dL, High >189 mg/dL, Very high Secondary prevention optimal LDL Cholesterol levels are recommended to be < 70 mg/dL LAB NONHDL <130 mg/dL Non HDL Cholesterol 109 Result Comment: <130 mg/dL, Optimal 130-159 mg/dL, Near optimal/above optimal 160-189 mg/dL, Borderline high 190-219 mg/dL, High >219 mg/dL, Very high Secondary prevention optimal non HDL Cholesterol levels are recommended to be < 100 mg/dL LAB FT hrs Fasting Time 10 LAB VLDL <30 mg/dL VLDL Cholesterol 15 LAB TCHDL <5.10 TC:HDL Ratio 3.10 LAB LDLHDL <2.54 LDL:HDL Ratio 1.81 Result Comment: Reference: 1. National Cholesterol Education Program ATP III Guideline At-A-Glance Quick Desk Reference: National Heart, Lung, and Blood [place]. National Institutes of Health. 2001: NIH Publication No. 01-3305. 2. An International Atherosclerosis Society position paper: global recommendations for the management of dyslipidemia: executive summary, Atherosclerosis. 2014: 232(2):410-413. Performed By: #### BMP, LIPB #### [facility] [address] [place] [address] RF UGI W/O KUB W/ Observed: 02/19/2018 Status: F Source: [employer] OR W/O DELAY FLM 2:12 PM SYSTEM REPOSITORY Patient Name: DINESH CAO Fluoroscopy Exam Date/Time 02/19/2018 14:06:59 EDT Exam RF UGI w/o KUB and w/ or w/o Delay Flm Ordering Physician ANDREINA GIL HEATHER L Accession Number [id number] [facility] Codes 00202 () Reason For Exam Heartburn Report Upper GI: 02/19/2018. CLINICAL INFORMATION: Heartburn. FINDINGS: Fluoroscopic and image studies of the upper gastrointestinal system were performed. 2.7 minutes of fluoroscopic time was used for the examination. 20 fluoroscopic spot images were obtained. The esophagus is normal in course and caliber. No mucosal ulcerations or mass lesions identified. No areas of stricturing or narrowing were seen. There is some tertiary contractions of the esophagus consistent with dysmotility. There is a small sliding hiatal hernia and a moderate amount of gastroesophageal reflux. The patient swallowed the barium tablet easily without holdup. The stomach is normal in position. There is a smooth impression at the gastroesophageal junction from the prior Tavo fundoplication. No mucosal ulcerations or mass lesions were identified. The duodenal bulb and duodenal C-loop are normal in position without evidence of ulceration or displacement. 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 Mild esophageal dysmotility. No other abnormalities identified. Report Dictated on Final Dictated: 02/19/2018 2:12 pm Dictating Physician: MD BENTLEY RISA Signed Date and Time: 02/19/2018 2:15 pm Signed by: MD BENTLEY RISA Transcribed Date and Time: 02/19/2018 2:12 CNPTOUTREACH Observed: 02/11/2018 Status: COMPLETED Source: [place] 12:00 AM [facility] REPOSITORY Patient Outreach (FAMPST) DINESH CAO ([id number]) 1960 Date Time Provider Department 02/11/18 JE[facility]QU[facility] your visit today, we recorded the following information about you: Allergies As of Date: 02/11/2018 Noted Allergy Reaction PROPOFOL (PF) 11/17/2014 14 - Other: See Comments Comments: Did'nt wake up VICODIN (HYDROCODONE-ACETAMINOPHE*02/10/2011 14 - Other: See Comments Comments: Constipation, extreme sleepiness ADHESIVE TAPE (ROSINS) 10/28/2009 CLARITIN (LORATADINE) 12/15/2008 5 - Intolerance Comments: did not help with s/s LATEX 09/26/2012 9 - Itching NAPROSYN (NAPROXEN) 11/26/2005 8 - GI Upset SIMVASTATIN 01/13/2013 14 - Other: See Comments Comments: leg muscle cramping TETRACYCLINE 11/26/2005 8 - GI Upset VIBRAMYCIN (DOXYCYCLINE CALCIUM) 11/26/2005 8 - GI Upset Date Reviewed: 01/16/2018 Reviewed by: Giana ([facility]) SARAH Orellana - Fully Assessed Visit Diagnosis:Medication management [Z79.899] Order(s):BASIC METABOLIC PNL [SQBMP] Order #: [id number] FUTURE LIPID PANEL BASIC [SQLIPB] Order #: [id number] FUTURE Prescriptions as of 02/11/2018 Sig: X ATORVASTATIN 20 MG TABLET take 1 tablet by mouth once d* Patient not taking: Reported on 02/26/2018 FLUTICASONE 200 MCG-VILANTERO* Inhale 1 Inhalation as instru* OMEPRAZOLE 40 MG CAPSULE,RAVEN* Take 1 capsule by mouth once * APIXABAN 5 MG TABLET Take 10 mg by mouth twice mukund* ALBUTEROL SULFATE 2.5 MG/3 ML* Use 3 mL via nebulizer every * X MELOXICAM 7.5 MG TABLET Take 1 tablet by mouth once d* Patient not taking: Reported on 02/26/2018 PROAIR HFA 90 MCG/ACTUATION A* X IPRATROPIUM BROMIDE 42 MCG (0* X AZELASTINE 0.15 % (205.5 MCG)* AMLODIPINE 5 MG TABLET take 1 tablet by mouth once d* Patient taking differently: take 2 tablet by mouth once d* * MULTIVITAMIN TABLET Take one(1) tablet daily. 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 [place] [address] OFFICE VISIT Date of Service: 01/29/18 MR#: [id number] Acct: [id number] Name: DINESH CAO Rep #: [id number] : 1960 Provider: Karen López Age/Sex: 57/M [facility] Status: Signed Assessment AND Plan 1. Severe persistent asthma without complication J45.50 Status Chronic Plan Deteriorated. Recently had 2 exacerbations and has yet to return to baseline. Adding Singulair with hopes of better control. Continue Breo. Continue mlki-bqn-rtfwmay allergy medication. Obtaining blood work to help direct allergy asthma care. Blood work to be obtained includes mini Rast test, Aspergillus antibodies, as well as an IgE. Sending sputum for a culture to help direct any further antibiotic use. No antibiotics or prednisone ordered today. Follow-up with myself in 1 month to evaluate his response to the newly added medications and to discuss blood work results. Orders Orders: 2. Pulmonary embolism on left I26.99 Status Chronic Plan Continue anticoagulation. Stable. No indication for any further testing. 3. PND (post-nasal drip) R09.82 Status Acute Plan deteriorated. Patient reports that he has Nasacort but only uses occasionally. He has been encouraged to use it daily until his follow-up visit in 1 month. He has been encouraged to contact the office if he develops any new or worsening symptoms in the meantime. Plan Detail Other Medications New: triamcinolone acetonide administer into each nostril; wait 302 sprays Intranasal QDAY seconds between sprays Follow Up 1 Month ([facility]) HPI 2 M FU: Chief Complaint: cough HPI Comments Details: This patient presents to the office today to follow- up after recently having pulmonary function testing completed. He is ambulatory and currently on room air. He reports that he has been treated with Ceftin for an exacerbation of his asthma twice over the past 3 weeks. He also admits that he has not returned to his baseline respiratory functioning. He currently is complaining of a dry cough, wheezing and chest tightness. Occasionally his cough is productive of white sputum. He reports that sometimes his cough is so severe that it causes him to become dizzy. He is now using his pro-air rescue inhaler once every few days, previously was only using it once every other week. He is also complaining of sinus pressure and headaches. He has been using Tylenol [id number]-sktamzu for headaches, which he reports gives him some relief and makes the headache tolerable. His biggest complaint is this deep cough. He denies any chest pain or palpitations. He denies any fever, body aches or chills. He is compliant with an vnbh-aet-oldfnao allergy medication called chlorpheniramine daily. He reports that over the past few weeks he feels that the seasonal allergies have been a trigger, and the hot humid air has caused him more shortness of breath. He continues compliance with Breo daily. Does rinse his mouth out after each use. He denies any medication side effects such as sore throat or thrush. Complete pulmonary function test performed on December 10, 2017 interpreted as showing essentially within normal limits. FVC 93% of predicted, FEV1 105% of predicted, FEV1/FVC 86% predicted, TLC 96% of predicted, RV 85% of predicted and DLCO 84% of predicted. 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 Accompanied by: Self Is patient in pain?: No Allergies povidone-iodine [From Betadine] Adverse Reaction (Severe, Verified 01/29/18 08:22) Hives soap [From Betadine] Adverse Reaction (Severe, Verified 01/29/18 08:22) Hives adhesive tape Adverse Reaction (Verified 01/29/18 08:22) Rash benzoin Adverse Reaction (Verified 01/29/18 08:22) Rash doxycycline calcium [From Vibramycin] Adverse Reaction (Verified 01/29/18 08:22) constipation doxycycline hyclate [From Vibramycin] Adverse Reaction (Verified 01/29/18 08:22) constpation doxycycline monohydrate [From Vibramycin] Adverse Reaction (Verified 01/29/18 08:22) constipation hydrocodone bitartrate [From Vicodin] Adverse Reaction (Verified 01/29/18 08:22) constipation tetracycline [Tetracycline] Adverse Reaction (Verified 01/29/18 08:22) constipation Medications Atorvastatin Calcium [Lipitor] 20 mg PO QHS 06/17/15 [History Confirmed 01/29/18] Multivitamins,Therapeutic [Multivitamin] 1 tab PO DAILY 06/17/15 [History Confirmed 01/29/18] Acetaminophen [Tylenol Extra Strength] 1,000 mg PO BID 09/12/17 [History Confirmed 01/29/18] albuterol sulfate HFA 90 mcg/actuation aerosol inhaler 2 puff INHALATION Q6H PRN 09/25/17 [History Confirmed 01/29/18] omeprazole 20 mg tablet,delayed release 20 mg PO QDAY tab 09/25/17 [History Confirmed 01/29/18] amlodipine 10 mg tablet 10 mg PO QDAY #90 tab 09/27/17 [Rx Confirmed 01/29/18] apixaban 5 mg tablet 5 mg PO BID #180 tab 09/27/17 [Rx Confirmed 01/29/18] albuterol sulfate 2.5 mg/3 mL (0.083 %) solution for nebulization 2.5 mg INHALATION Q4H PRN ml 11/05/17 [History Confirmed 01/29/18] fluticasone 200 mcg-vilanterol 25 mcg/dose powder for inhalation 1 inh INHALATION Q24H #60 ea 11/29/17 [Rx Confirmed 01/29/18] montelukast 10 mg tablet 10 mg PO QPM #30 tab 01/29/18 [Rx Confirmed 01/29/18] triamcinolone acetonide 55 mcg nasal spray aerosol 2 spray INTRANASAL QDAY #16.9 ml 01/29/18 [Rx Confirmed 01/29/18] [facility] Medical History Pulmonary embolism on left (Acute) Peripheral vascular disease (Chronic) Asthma, severe persistent (Chronic) GERD (gastroesophageal reflux disease) (Chronic) Aspiration pneumonia of right lower lobe (Acute) Chronic cough (Chronic) Hypersomnia (Acute) PND (paroxysmal nocturnal dyspnea) (Acute) Benign essential hypertension (Chronic) Syncope and collapse (Acute) Acute left lower lobe peripheral PE (Inactive) GERD (gastroesophageal reflux disease) (Inactive) Partially treated aspiration pneumonia (Inactive) 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) Surgical History History of sinus surgery (Resolved) History of vein stripping (Resolved) History of knee surgery (Resolved) History of vasectomy (Resolved) Hx of appendectomy (Resolved) History of cholecystectomy (Resolved) Family History Brother Hypertension Social History Smoking Status: Never smoker second hand exposure: No alcohol intake: never substance use type: does not use Review of Systems Const CONSTITUTIONAL: Positive fatigue; negative anorexia, body ache, chills, daytime sleepiness, fever(s), night sweats, oral thrush, stops breathing during sleep, weight loss, sleeping in chair, weight loss, weight gain, frequent colds, seasonal allergies, other, headache(s) or orthopnea EETM Ear Nose Throat Mouth: Positive hearing normal and post nasal drip; negative hard of hearing, hoarseness, dry mouth in morning, change in vision, itchy eyes, eye pain, swallowing Difficulty, ear pain, nose bleed, headache(s), mouth pain, nasal congestion, nasal discharge, sinus pain, sinus pressure, sore throat or other Cardio Cardiovascular: Negative chest pain, chest pain at rest, chest pain with activity, irregular heart rhythm, edema, shortness of breath when lying down, palpitations, murmur or other Resp Respiratory: Positive as per HPI, wheezing, cough cough: Positive productive color: Positive white and non-productive, chest tightness and inhalers; negative shortness of breath, pain with cough, chest congestion, pain on inspiration, increase use of rescue inhalers, snoring, apnea or other Gastro Gastrointestional: Negative bloody stools, change in appetite, difficulty swallowing, reflux, hematemesis, melena stool, loose stool, constipation or other Genitourinary: Negative blood in urine, nocturia, pain with urination or other Musc Musculoskeletal: Negative body pain, back pain, neck pain or other Skin/Breast Skin/Breast: Negative dry skin, itching, rash, unusual bruising, breast lump or other Neuro Neurological: Negative restless legs, confusion, weakness or other Psych Psychocological: Negative abnormal sleep pattern, anxiety, thoughts of hurting self/others, hopelessness or other Lymph Lymphatic: Negative easy bleeding, easy bruising, swollen lymph nodes or other Exam Const Constitutional: Positive conversant, cooperative, in no acute respiratory distress, healthy appearing, well developed, well nourished, good hygiene and obese Head Head: Positive normocephalic and atraumatic; negative cyanosis of lips/distal nose Eyes Eye: Positive clear conjunctiva and nystagmus; negative scleral abnormality Ears Ear: Positive hearing normal and external ears normal; negative hard of hearing Nose Nose: Positive external nose normal and no nasal discharge; negative epistaxis Mouth Mouth: Positive post nasal drip, oral mucosae normal, no lesions and crowded posterior oropharynx; negative malodorous breath or oral thrush present Mallampati Score: III: Mallampati Score Neck Neck: Positive normal visual inspection, full ROM, trachea midline and thick neck; negative lymphadenopathy, JVD or tender Chest Wall Chest: Positive normal inspection of the chest and symmetric chest movement; negative increased A/P diameter Resp lung sounds: Positive clear to auscultation, good air exchange, normal expiratory time and normal respiratory effort; negative diminished, wheezes, rhonchi, rales, dullness to percussion or wheeze present on forced exhalation Cardio Cardiac: Positive regular rate, regular rhythm, S1 normal and S2 normal; negative murmur GI GI: Positive normal to inspection, normal bowel sounds and obese; negative distended Genitourinary: Positive deferred Musc Musculoskeletal: Positive steady gait and ROM normal; negative kyphosis or scoliosis Skin Pulmonary Skin Exam: Positive intact; negative rash, lesion, ulcers, erythema, scaly or dermal atrophy Pulses Pulse: Yes pulses normal x4 extremities Extremities Extremities: Yes capillary refill normal, No clubbing, No cyanosis, No edema Neuro Neurologic: Yes conversant, Yes no focal neuro deficits, Yes understands questions, Yes cooperative, Yes normal cognition, Yes normal coordination, Yes normal concentration, No tremor Lymph Lymphatic: No lymphadenopathy, No tenderness, No cervical adenopathy, No axillary adenopathy Psych Appearance: Positive grossly normal, eye contact and well kempt Mental Status: Positive mental status grossly normal Mood: Positive congruent mood Affect: Positive normal affect Coding Level of Care Code Off vis,est,level 4 Diagnoses Severe persistent asthma without complication J45.50 Asthma complication type: uncomplicated Pulmonary embolism on left I26.99 PND (post-nasal drip) R09.82 01/29/18 1632 <Electronically signed by Karen López [facility]ILDCARE CENTER ADMINISTRATORCristianC> Date Karen López [facility] C[facility] ADMINISTRATOR-C Cosigner Signature: Date (if applicable) CC: Jeannette Mosqueda III, MD IMMUNOGLOBULIN E Collected: 01/29/2018 Status: F Source: LIZETTE 9:00 AM [facility] REPOSITORY TYPE CODE TESTS RESULT OUT OF REFERENCE UNITS RANGE LAB L3200.1600 0-100 IU/mL High IMMUNO E 205 Result Comment: Performed at: [address] [id number] Floor Covering Printer: Joshua Carrillo MD, Phone: [phone] Performed By: #### L3200.1600, L3500.3600, L5500.0300 #### [facility] (refer to report for specific site) refer to report for address and phone number ASPERGILLUS ANTIBODIES Collected: 01/29/2018 Status: F Source: LIZETTE 9:00 AM [facility] REPOSITORY TYPE CODE TESTS RESULT OUT OF RANGE REFERENCE UNITS LAB L3500.3700 Neg:<1:1 Asp. Normal fumigatus Negative LAB L3500.3800 Neg:<1:1 Asp. Normal flavus Negative LAB L3500.3900 Neg:<1:1 Asp. Normal niger Negative Performed By: #### L3200.1600, L3500.3600, L5500.0300 #### [facility] (refer to report for specific site) refer to report for address and phone number ALLERGEN, MINI-RAST Collected: 01/29/2018 Status: F Source: LIZETTE 9:00 AM [facility] REPOSITORY TYPE CODE TESTS RESULT OUT OF REFERENCE UNITS RANGE LAB L5500.1001 Class 0 kU/L D PTERONYSSINUS Normal <0.10 LAB L5500.1002 Class 0 kU/L D FARINAE MITE Normal <0.10 LAB L5500.2001 Class 0 kU/L CAT HAIR/DANDER Normal <0.10 LAB L5500.2002 Class 0 kU/L DOG EPITHELIA Normal <0.10 LAB L5500.4002 Class 0 kU/L B[place]MUDA GRASS Normal <0.10 LAB L5500.4008 Class 0 kU/L [place], [place] Normal <0.10 LAB L5500.5006 Class 0 kU/L A. ALTERNATA Normal <0.10 LAB L5500.6007 Class 0 kU/L [place], WHITE Normal <0.10 LAB L5500.6008 Class 0 kU/L [place],AMER WHITE Normal <0.10 LAB L5500.7001 Class 0 kU/L RAG[place] SH/COM Normal <0.10 LAB L5500.7009 Class 0 kU/L PL[place],ENGLSH Normal <0.10 LAB L5500.7150 Class 0 kU/L Mouse Urine Normal <0.10 Result Comment: Performed at: [facility] [id number] Floor Covering Printer: Joshua Carrillo MD, Phone: [phone] LAB L5478.9883 . Normal RAST COMMENT Comment Result Comment: Levels of Specific IgE Class Description of Class ----- < 0.10 0 Negative 0.10 - 0.31 0/I Equivocal/Low 0.32 - 0.55 I Low 0.56 - 1.40 II Moderate 1.41 - 3.90 III High 3.91 - 19.00 IV Very High 19.01 - 100.00 V Very High >100.00 Very High Performed By: #### L3200.1600, L3500.3600, L5500.0300 #### [facility] (refer to report for specific site) refer to report for address and phone number PROGRESS Observed: 01/16/2018 Status: COMPLETED Source: MAUMELLE 9:58 AM [facility] [place] REPOSITORY HNO ID: [id number] Author: Jeannette Mosqueda III Service: (none) Author Type: Physician Type: Progress Notes Filed: 01/16/2018 12:24 PM Note Text: SUBJECTIVE: This is a 57 year old male that is here today for productive cough for past 5 days. PND. Near syncope due to persistent cough. Using albuterol nebulizer at night with benefit. 2. hx of asthma. No wheezing PAST MEDICAL HISTORY Diagnosis Date - Achilles tendinitis 02/10/2011 - Allergic rhinitis 02/27/2012 - Allergic rhinitis, cause unspecified - ASHD (arteriosclerotic heart disease) 09/13/2011 - Asthma 11/03/2014 - Cough syncope syndrome - Esophageal reflux Gastroesophageal reflux - Essential hypertension, benign - GERD (gastroesophageal reflux disease) - Hiatal hernia 06/17/2015 [facility] - see scanned documents - Hyperlipidemia LDL goal < 100 01/21/2013 - Peripheral vascular disease (HCC) - Pulmonary embolus (HCC) 09/23/2017 left - Severe persistent asthma without complication - Syncope 11/06/2017 and collapse Current Outpatient Prescriptions on File Prior to Visit: Omeprazole 40 mg capsule Take 1 capsule by mouth once daily. apixaban (ELIQUIS) 5 mg tab tab(s) Take 10 mg by mouth twice daily. albuterol (PROVENTIL) 2.5 mg /3 mL (0.083 %) nebulizer solution Use 3 mL via nebulizer every 4 hours as needed for Wheezing/Shortness of Breath. Use over 5-15minutes. meloxicam (MOBIC) 7.5 mg tablet Take 1 tablet by mouth once daily. Take with food. (Patient taking differently: Take 15 mg by mouth once daily. Take with food. ) PROAIR HFA 90 mcg/actuation inhaler ipratropium bromide (ATROVENT) 0.06 % nasal spray Azelastine 0.15 % (205.5 mcg) spry amLODIPine (NORVASC) 5 mg tablet take 1 tablet by mouth once daily (Patient taking differently: take 2 tablet by mouth once daily) atorvastatin (LIPITOR) 20 mg tablet Take 1 tablet by mouth once daily. multivitamin ORAL tablet Take one(1) tablet daily. No current facility-administered medications on file prior to visit. FAMILY HISTORY Problem Relation Age of Onset - Hypertension Mother - renal stones [Other] [OTHER] Father - Diabetes Son - GERD [Other] [OTHER] Brother Social History Substance Use Topics - Smoking status: Never Smoker - Smokeless tobacco: Never Used - Alcohol use No BP 121/71 Pulse 72 Resp 18 Wt 112.5 kg (248 lb) BMI 34.59 kg/m? . OBJECTIVE: APPEARANCE Well appearing, alert, in no acute distress, well-hydrated, well nourished. EYES conjunctivae and sclerae normal, lids and lashes normal and lacrimal apparatus normal EARS External ears normal, canals clear NOSE/SINUS Nares normal. Septum midline. Mucosa normal. No drainage or sinus tenderness., mild tenderness L maxillary and L frontal sinus THROAT normal, no erythema NECK Negative findings: no adenopathy, trachea midline and normal to palpitation, thyroid normal to palpation LUNG clear to auscultation ASSESSMENT: hx of asthma sinusitis PLAN: cefdinir 300 twice/day x 10 days same other medications TEO Manjarrez MD, III MD CNOV Observed: 01/16/2018 Status: COMPLETED Source: MAUMELLE 9:40 AM [facility] REPOSIT[facility] DINESH [facility] ([id number]) 1960 M Date Time Provider Department 01/16/18 9:40 AM JEANNETTE MOSQUEDA IIIWS During your visit today, we recorded the following information about you: Pulse Respiration Blood pressure Weight 72/minute 18/minute 121/71 112.5 kg Jeannette Mosqueda III MD 01/16/2018 12:24 PM Signed SUBJECTIVE: This is a 57 year old male that is here today for productive cough for past 5 days. PND. Near syncope due to persistent cough. Using albuterol nebulizer at night with benefit. 2. hx of asthma. No wheezing PAST MEDICAL HISTORY Diagnosis Date - Achilles tendinitis 02/10/2011 - Allergic rhinitis 02/27/2012 - Allergic rhinitis, cause unspecified - ASHD (arteriosclerotic heart disease) 09/13/2011 - Asthma 11/03/2014 - Cough syncope syndrome - Esophageal reflux Gastroesophageal reflux - Essential hypertension, benign - GERD (gastroesophageal reflux disease) - Hiatal hernia 06/17/2015 [facility] - see scanned documents - Hyperlipidemia LDL goal < 100 01/21/2013 - Peripheral vascular disease (HCC) - Pulmonary embolus (HCC) 09/23/2017 left - Severe persistent asthma without complication - Syncope 11/06/2017 and collapse Current Outpatient Prescriptions on File Prior to Visit: Omeprazole 40 mg capsule Take 1 capsule by mouth once daily. apixaban (ELIQUIS) 5 mg tab tab(s) Take 10 mg by mouth twice daily. albuterol (PROVENTIL) 2.5 mg /3 mL (0.083 %) nebulizer solution Use 3 mL via nebulizer every 4 hours as needed for Wheezing/Shortness of Breath. Use over 5-15minutes. meloxicam (MOBIC) 7.5 mg tablet Take 1 tablet by mouth once daily. Take with food. (Patient taking differently: Take 15 mg by mouth once daily. Take with food. ) PROAIR HFA 90 mcg/actuation inhaler ipratropium bromide (ATROVENT) 0.06 % nasal spray Azelastine 0.15 % (205.5 mcg) spry amLODIPine (NORVASC) 5 mg tablet take 1 tablet by mouth once daily (Patient taking differently: take 2 tablet by mouth once daily) atorvastatin (LIPITOR) 20 mg tablet Take 1 tablet by mouth once daily. multivitamin ORAL tablet Take one(1) tablet daily. No current facility-administered medications on file prior to visit. FAMILY HISTORY Problem Relation Age of Onset - Hypertension Mother - renal stones [Other] [OTHER] Father - Diabetes Son - GERD [Other] [OTHER] Brother Social History Substance Use Topics - Smoking status: Never Smoker - Smokeless tobacco: Never Used - Alcohol use No BP 121/71 Pulse 72 Resp 18 Wt 112.5 kg (248 lb) BMI 34.59 kg/m? . OBJECTIVE: APPEARANCE Well appearing, alert, in no acute distress, well- hydrated, well nourished. EYES conjunctivae and sclerae normal, lids and lashes normal and lacrimal apparatus normal EARS External ears normal, canals clear NOSE/SINUS Nares normal. Septum midline. Mucosa normal. No drainage or sinus tenderness., mild tenderness L maxillary and L frontal sinus THROAT normal, no erythema NECK Negative findings: no adenopathy, trachea midline and normal to palpitation, thyroid normal to palpation LUNG clear to auscultation ASSESSMENT: hx of asthma sinusitis PLAN: cefdinir 300 twice/day x 10 days same other medications TEO Manjarrez MD, III MD Frank A Cebul, III MD 01/16/2018 10:11 AM Signed PLAN: cefdinir 300 twice/day x 10 days same other medications Jeannette Mosqueda III MD Referring Provider: SELF [[id number]] Allergies As of Date: 01/16/2018 Noted Allergy Reaction PROPOFOL (PF) 11/17/2014 14 - Other: See Comments Comments: Did'nt wake up VICODIN (HYDROCODONE-ACETAMINOPHE*02/10/2011 14 - Other: See Comments Comments: Constipation, extreme sleepiness ADHESIVE TAPE (ROSINS) 10/28/2009 CLARITIN (LORATADINE) 12/15/2008 5 - Intolerance Comments: did not help with s/s LATEX 09/26/2012 9 - Itching NAPROSYN (NAPROXEN) 11/26/2005 8 - GI Upset SIMVASTATIN 01/13/2013 14 - Other: See Comments Comments: leg muscle cramping TETRACYCLINE 11/26/2005 8 - GI Upset VIBRAMYCIN (DOXYCYCLINE CALCIUM) 11/26/2005 8 - GI Upset Date Reviewed: 01/16/2018 Reviewed by: Giana ([facility]) SARAH Orellana - Fully Assessed Reason for Visit: Productive cough [Other] Cmt: x2 weeks, sometimes yellow, sometimes clear, can't sleep Primary Visit Diagnosis:Bacterial sinusitis [J32.9, B96.89] Order(s):cefdinir (OMNICEF) 300 mg capsuleTake 1 capsule by mouth twice daily for 10 days.Disp: 20 capsuleRfl: 0 Prescriptions as of 01/16/2018 Sig: FLUTICASONE 200 MCG-VILANTERO* Inhale 1 Inhalation as instru* OMEPRAZOLE 40 MG CAPSULE,RAVEN* Take 1 capsule by mouth once * APIXABAN 5 MG TABLET Take 10 mg by mouth twice mukund* ALBUTEROL SULFATE 2.5 MG/3 ML* Use 3 mL via nebulizer every * MELOXICAM 7.5 MG TABLET Take 1 tablet by mouth once d* Patient taking differently: Take 15 mg by mouth once raúl* PROAIR HFA 90 MCG/ACTUATION A* IPRATROPIUM BROMIDE 42 MCG (0* AZELASTINE 0.15 % (205.5 MCG)* AMLODIPINE 5 MG TABLET take 1 tablet by mouth once d* Patient taking differently: take 2 tablet by mouth once d* ATORVASTATIN 20 MG TABLET Take 1 tablet by mouth once d* * MULTIVITAMIN TABLET Take one(1) tablet daily. 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 Encounter Status:Closed by JEANNETTE MOSQUEDA III, MD on 01/16/18 PULMONARY FUNCTION Observed: 12/11/2017 Status: F Source: [place]AS TEST 8:37 AM [facility] REPOSITORY [facility] Pulmonary Services/Neurology [address] [place] [address] MR#: [id number] Acct: [id number] Name: DINESH CAO Rep #: [id number] : 1960 57 From: Nishant Combs DO Referring Dr: Karen López [facility] C[facility] ADMINISTRATOR Status: REG CLI Ordering Dr: Date: Location: PSN Sex: M C INTRODUCTION: The patient is a 57-year-old male currently under the care of Dr. Doyle that presents for pulmonary function testing secondary to a diagnosis of pulmonary embolism. Respiratory therapy reports good patient effort and reports no other concerns. Bronchodilators were used during testing. INTERPRETATION: Forced expiration spirometry demonstrates no evidence of a large airways obstructive ventilatory defect. There was no significant response to aerosolized bronchodilators, based upon strict ATS criteria. Spirograms are of good quality and plateau normally. The respiratory flow volume loop appears normal. Body plethysmography was performed and reveals lung volumes to be within normal limits. Diffusing capacity by single breath CO is within normal limits at 84% of predicted. IMPRESSION: These pulmonary function studies are essentially within normal limits. There has been little overall change in the patient's PFTs since 2015. 12/11/17 0837 <Electronically signed by Nishant Combs DO> Date Nishant Combs DO CC: Karen López; Jeannette Mosqueda III, MD Date Dictated: 12/11/17833 Date Transcribed: 12/11/17833 Digital Marketing Officer: TYRESE Signed PULMONARY VISIT REPORT Observed: 11/29/2017 Status: F Source: [place] 3:53 PM [facility] [place] REPOSITORY Pulmonary Medicine of [address] [place] [address] OFFICE VISIT Date of Service: 11/29/17 MR#: [id number] Acct: [id number] Name: DINESH CAO Rep #: [id number] : 1960 Provider: Dewayne Doyle MD Age/Sex: 57/M Location: [facility] [place].W Status: Signed Assessment AND Plan 1. Severe persistent asthma without complication J45.50 Plan Patient already has a repeat pulmonary function test scheduled from her previous office visit. Patient should be on controller medications. Patient was placed on Breo personally instructed on its use. First dose was administered during the office visit. Patient tolerated it well. Signs and symptoms of exacerbation were reviewed. Patient typically has a sinusitis trigger for his asthma exacerbation. Initiate combination inhaler. Await repeat PFT. Medications New: fluticasone-vilanterol 200-25 mcg/dose (Breo Ellipta) after inha1 inh Inhalation Q24H lation, rinse mouth with water and spit out; do not swallow 2. Syncope and collapse R55 Plan High clinical suspicion for vasovagal response to paroxysmal type coughing leading to a vasovagal response and syncopal episodes. Patient does follow with cardiology. Patient is on no beta-blockers at this time. Would defer to cardiology on whether a Holter monitor would be indicated. Patient's blood pressure is adequate at this time. Patient is on no alpha blockers. No report of seizure activity associated with the events. Initiation of inhaled corticosteroid to avoid paroxysmal type coughing. 3. Pulmonary embolism on left I26.99 Plan Patient currently on anticoagulation and tolerating this well. Patient did have a VQ scan recently that showed low probability before CTEPH. Will continue with anticoagulation for now. Likely repeat echocardiogram per cardiology recommendations. Await cardiology need for echocardiogram. Plan Detail Follow Up 2 Months ([facility]) HPI 6 M FU: Details: back to normal. still with cough intermittently. still light headed. proair only. Patient is a 57-year-old male, currently in the care of Dr. Mosqueda, who presents for evaluation secondary to posttussive syncope and recent exacerbation. Patient reports he is much improved following steroid and Levaquin therapy secondary to reported sinusitis. Patient still has a cough intermittently, but states he has had no syncopal episodes since being placed on prednisone therapy. Patient states he does become lightheaded with coughing episodes. Patient denies any spontaneous syncopal episodes associated with change in position, exertion or without provocation. Patient denies any aura or seizure activity. Patient reports he is currently using no controller medications. Patient does have an albuterol that he uses intermittently. Patient estimates that he uses this 2-3 times per month. Patient does report good response to therapy. Patient states the cough is typically the stimulus leading to his albuterol use. Cough is typically productive of a clear to pale yellow sputum. This is similar to nasal secretions. Testing personally reviewed with the patient VQ scan (11/15/2017): Normal (low likelihood of thromboembolic pulmonary hypertension) Chest x-ray (11/15/2017): No acute infiltrates Intake Vital Signs11/29/17 Height 5 ft 11 in 11/29/17 Weight: 112.491 kg Intake Visit Reasons: 6 M FU Accompanied by: Self Is patient in pain?: No Allergies povidone-iodine [From Betadine] Adverse Reaction (Severe, Verified 11/29/17 09:46) Hives soap [From Betadine] Adverse Reaction (Severe, Verified 11/29/17 09:46) Hives adhesive tape Adverse Reaction (Verified 11/29/17 09:46) Rash benzoin Adverse Reaction (Verified 11/29/17 09:46) Rash doxycycline calcium [From Vibramycin] Adverse Reaction (Verified 11/29/17 09:46) constipation doxycycline hyclate [From Vibramycin] Adverse Reaction (Verified 11/29/17 09:46) constpation doxycycline monohydrate [From Vibramycin] Adverse Reaction (Verified 11/29/17 09:46) constipation hydrocodone bitartrate [From Vicodin] Adverse Reaction (Verified 11/29/17 09:46) constipation tetracycline [Tetracycline] Adverse Reaction (Verified 11/29/17 09:46) constipation Medications Atorvastatin Calcium [Lipitor] 20 mg PO QHS 06/17/15 [History Confirmed 11/29/17] Multivitamins,Therapeutic [Multivitamin] 1 tab PO DAILY 06/17/15 [History Confirmed 11/29/17] Acetaminophen [Tylenol Extra Strength] 1,000 mg PO BID 09/12/17 [History Confirmed 11/29/17] albuterol sulfate HFA 90 mcg/actuation aerosol inhaler 2 puff INHALATION Q6H PRN 09/25/17 [History Confirmed 11/29/17] omeprazole 20 mg tablet,delayed release 20 mg PO QDAY tab 09/25/17 [History Confirmed 11/29/17] amlodipine 10 mg tablet 10 mg PO QDAY #90 tab 09/27/17 [Rx Confirmed 11/29/17] apixaban 5 mg tablet 5 mg PO BID #180 tab 09/27/17 [Rx Confirmed 11/29/17] albuterol sulfate 2.5 mg/3 mL (0.083 %) solution for nebulization 2.5 mg INHALATION Q4H PRN ml 11/05/17 [History Confirmed 11/29/17] fluticasone 200 mcg-vilanterol 25 mcg/dose powder for inhalation 1 inh INHALATION Q24H #60 ea 11/29/17 [Rx Confirmed 11/29/17] PFSH Medical History Pulmonary embolism on left (Acute) Peripheral vascular disease (Chronic) Asthma, severe persistent (Chronic) GERD (gastroesophageal reflux disease) (Chronic) Aspiration pneumonia of right lower lobe (Acute) Chronic cough (Chronic) Hypersomnia (Acute) PND (paroxysmal nocturnal dyspnea) (Acute) Benign essential hypertension (Chronic) Syncope and collapse (Acute) Acute left lower lobe peripheral PE (Inactive) GERD (gastroesophageal reflux disease) (Inactive) Partially treated aspiration pneumonia (Inactive) 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) Surgical History History of sinus surgery (Resolved) History of vein stripping (Resolved) History of knee surgery (Resolved) History of vasectomy (Resolved) Hx of appendectomy (Resolved) History of cholecystectomy (Resolved) Family History Brother Hypertension Social History Smoking Status: Never smoker second hand exposure: No alcohol intake: never substance use type: does not use Review of Systems Const CONSTITUTIONAL: Negative anorexia, body ache, chills, daytime sleepiness, fever(s), night sweats, oral thrush, stops breathing during sleep, weight loss, sleeping in chair, fatigue, weight loss, weight gain, frequent colds, seasonal allergies, other, headache(s) or orthopnea EETM Ear Nose Throat Mouth: Positive hearing normal; negative hard of hearing, hoarseness, dry mouth in morning, change in vision, itchy eyes, eye pain, swallowing Difficulty, ear pain, nose bleed, headache(s), mouth pain, nasal congestion, nasal discharge, post nasal drip, sinus pain, sinus pressure, sore throat or other Cardio Cardiovascular: Negative chest pain, chest pain at rest, chest pain with activity, irregular heart rhythm, edema, shortness of breath when lying down, palpitations, murmur or other Resp Respiratory: Positive as per HPI, shortness of breath shortness of breath: Positive with activity, pain with cough, cough cough: Positive productive color: Positive yellow and clear and chest tightness; negative wheezing, chest congestion, pain on inspiration, inhalers, increase use of rescue inhalers, snoring, apnea or other Gastro Gastrointestional: Negative bloody stools, change in appetite, difficulty swallowing, reflux, hematemesis, melena stool, loose stool, constipation or other Genitourinary: Negative blood in urine, nocturia, pain with urination or other Musc Musculoskeletal: Negative body pain, back pain, neck pain or other Skin/Breast Skin/Breast: Negative dry skin, itching, rash, unusual bruising, breast lump or other Neuro Neurological: Negative restless legs, confusion, weakness or other Psych Psychocological: Negative abnormal sleep pattern, anxiety, thoughts of hurting self/others, hopelessness or other Lymph Lymphatic: Negative easy bleeding, easy bruising, swollen lymph nodes or other Exam Const Constitutional: Positive conversant, cooperative, in no acute respiratory distress, healthy appearing, well developed, well nourished, good hygiene and obese Head Head: Positive normocephalic and atraumatic; negative cyanosis of lips/distal nose, frontal sinus tenderness or maxillary sinus tenderness Eyes Eye: Positive clear conjunctiva; negative scleral abnormality or nystagmus Ears Ear: Positive hearing normal and external ears normal; negative hard of hearing Nose Nose: Positive external nose normal, septum normal and no nasal discharge; negative epistaxis or nasal polyp Mouth Mouth: Positive oral mucosae normal, no lesions, good dentition and posterior oropharynx is adequate; negative post nasal drip or oral thrush present Mallampati Score: II: Mallampati Score Neck Neck: Positive normal visual inspection, full ROM and trachea midline; negative lymphadenopathy or JVD Chest Wall Chest: Positive normal inspection of the chest and symmetric chest movement; negative crepitus or increased A/P diameter Resp lung sounds: Positive clear to auscultation, good air exchange, normal expiratory time and normal respiratory effort; negative wheezes, wheeze present on forced exhalation, rhonchi, rales or dullness to percussion Cardio Cardiac: Positive regular rate, regular rhythm, S1 normal and S2 normal; negative murmur, rub or gallop GI GI: Positive obese, normal to inspection and normal bowel sounds; negative distended, epigastric tenderness, hepatomegaly or splenomegaly Genitourinary: Positive deferred Musc Musculoskeletal: Positive steady gait and ROM normal; negative using an assistive device for ambulation, kyphosis, scoliosis or rheumatoid nodules Skin Pulmonary Skin Exam: Positive intact; negative rash, lesion, ulcers, scaly or dermal atrophy Pulses Pulse: Yes radial pulses present Extremities Extremities: Yes capillary refill normal, No clubbing, No cyanosis, No edema, No stasis dermatitis Neuro Neurologic: Yes conversant, Yes no focal neuro deficits, Yes cooperative, Yes normal cognition, Yes understands questions, Yes normal concentration, Yes normal coordination Lymph Lymphatic: No lymphadenopathy Psych Appearance: Positive grossly normal Mental Status: Positive mental status grossly normal Mood: Positive congruent mood Affect: Positive normal affect Office Procedures Inhaler Training Inhaler Training Procedure performed by: Dewayne Doyle Inhaler Training: Yes personally trained on inhaler use, sample provided, first dose given in the office, expresses understanding and continue to monitor Coding Level of Care Code Off vis,est,level 3 Diagnoses Severe persistent asthma without complication J45.50 Asthma complication type: uncomplicated Syncope and collapse R55 Pulmonary embolism on left I26.99 11/29/17 1553 <Electronically signed by Dewayne Doyle MD> Date Dewayne Doyle MD Cosigner Signature: Date (if applicable) CC: Jeannette Mosqueda III, MD PROGRESS Observed: 11/20/2017 Status: COMPLETED Source: [place] 4:09 PM [facility] [place] REPOSITORY O ID: [id number] Author: Patricia (Data Control Assistant) BROOKE Chavis.[facility] Service: (none) Author Type: Nurse Practitioner Type: Progress Notes Filed: 11/20/2017 4:41 PM Note Text: Subjective HPI HPI Dinesh Cao is a 57 year old male who presents today for CC of cough, sinus pressure. This started 5 weeks ago. Has tried multiple otc medications without relief. Symptoms are worsened by nothing. Risk factors hx of recurrent sinus infections. Just completed a round of augmentin. Asking for levaquin. .Patient presents with: sinus pain and pressure, cough: has had symptoms for over one month and not getting any better PAST MEDICAL HISTORY Diagnosis Date - Achilles tendinitis 02/10/2011 - Allergic rhinitis 02/27/2012 - Allergic rhinitis, cause unspecified - ASHD (arteriosclerotic heart disease) 09/13/2011 - Asthma 11/03/2014 - Cough syncope syndrome - Esophageal reflux Gastroesophageal reflux - Essential hypertension, benign - GERD (gastroesophageal reflux disease) - Hiatal hernia 06/17/2015 [facility] - see scanned documents - Hyperlipidemia LDL goal < 100 01/21/2013 - Peripheral vascular disease (HCC) - Pulmonary embolus (HCC) 09/23/2017 left - Syncope 11/06/2017 and collapse - Unspecified asthma(493.90) 2006 PAST SURGICAL HISTORY Procedure Laterality Date - APPENDECTOMY 1988 - COLONOSCOP W/ OR W/O BRSH SPEC 11/17/14 Colonoscopy - EGD W/O OR W/BRUSH/WASH 11/17/14 EGD - KNEE SCOPE,DIAGNOSTIC 08/31/2009 Arthroscopy, knee right [facility] - LAPAROSCOPIC CHOLEYCYSTECTOMY 1999 Cholecystectomy, lap - NASAL SEPTUM REPOS W STABILIZATION 06/2010 - PAST SURGICAL HISTORY OF ruptured valve on back of right knee - PAST SURGICAL HISTORY OF 08/31/09 repair of a torn mansicus - REVISE SECONDARY VARICOSITY 2003 Varicose Vein Surgery, BLE - VASECTOMY 1999 ALLERGIES Propofol (Pf); Vicodin [Hydrocodone-Acetaminophen]; Adhesive Tape (Rosins); Claritin [Loratadine]; Latex; Naprosyn [Naproxen]; Simvastatin; Tetracycline; Vibramycin [Doxycycline Calcium] MEDICATIONS Omeprazole 40 mg capsule Take 1 capsule by mouth once daily. apixaban (ELIQUIS) 5 mg tab tab(s) Take 10 mg by mouth twice daily. albuterol (PROVENTIL) 2.5 mg /3 mL (0.083 %) nebulizer solution Use 3 mL via nebulizer every 4 hours as needed for Wheezing/Shortness of Breath. Use over 5-15minutes. meloxicam (MOBIC) 7.5 mg tablet Take 1 tablet by mouth once daily. Take with food. PROAIR HFA 90 mcg/actuation inhaler ipratropium bromide (ATROVENT) 0.06 % nasal spray Azelastine 0.15 % (205.5 mcg) spry amLODIPine (NORVASC) 5 mg tablet take 1 tablet by mouth once daily atorvastatin (LIPITOR) 20 mg tablet Take 1 tablet by mouth once daily. multivitamin ORAL tablet Take one(1) tablet daily. FAMILY HISTORY Problem Relation Age of Onset - Hypertension Mother - renal stones [Other] [OTHER] Father - Diabetes Son - GERD [Other] [OTHER] Brother Social History Substance Use Topics - Smoking status: Never Smoker - Smokeless tobacco: Never Used - Alcohol use No Review of Systems Constitutional: Negative for chills, fever and weight loss. HENT: Positive for congestion. Negative for ear pain, nosebleeds and sore throat. Respiratory: Positive for cough. Negative for shortness of breath and wheezing. Musculoskeletal: Negative for neck pain. Skin: Negative for rash. Objective Blood pressure 138/82, pulse 75, temperature 36.4 ?C (97.5 ?F), temperature source Tympanic, resp. rate 16, weight 115.2 kg (254 lb), SpO2 96 %. Physical Exam Constitutional: He is oriented to person, place, and time and well-developed, well-nourished, and in no distress. Non-toxic appearance. He does not have a sickly appearance. No distress. HENT: Head: Normocephalic and atraumatic. Right Ear: Hearing, tympanic membrane, external ear and ear canal normal. Left Ear: Hearing, tympanic membrane, external ear and ear canal normal. Nose: Right sinus exhibits maxillary sinus tenderness. Left sinus exhibits maxillary sinus tenderness. Mouth/Throat: Uvula is midline, oropharynx is clear and moist and mucous membranes are normal. Eyes: Conjunctivae and lids are normal. Pupils are equal, round, and reactive to light. Right eye exhibits no discharge. Left eye exhibits no discharge. No scleral icterus. Neck: Trachea normal and normal range of motion. Neck supple. Cardiovascular: Normal rate, regular rhythm and normal heart sounds. Pulmonary/Chest: Effort normal and breath sounds normal. Lymphadenopathy: He has no cervical adenopathy. Neurological: He is alert and oriented to person, place, and time. Skin: No rash noted. He is not diaphoretic. ASSESSMENT/PLAN: 1. Recurrent sinus infections - ICD9: 473.9, ICD10: J32.9 - Will begin treatment with Levaquin - Supportive care with plenty of fluids, rest, and analgesia prn. - Follow up in 3-5 days if symptoms persist or worsen. - LEVOFLOXACIN 500 MG TABLET Prescription instructions reviewed with patient as applicable. Patient advised if symptoms do not improve or if symptoms worsen sooner, to contact the office for further evaluation by their primary care physician. Potential red flag symptoms discussed with the patient. Reviewed appropriate action plan to take if red flag symptoms occur. Patient agreeable to treatment plan. Patricia Chavis APRN.BILINGUAL LOAN PROCESSOR CNOV Observed: 11/20/2017 Status: COMPLETED Source: [place] 3:45 PM [facility] REPOSITORY Office Visit (WSTR) DINESH CAO ([id number]) 1960 M Date Time Provider Department 11/20/17 3:45 PM PATRICIA CHAVIS (YEYO) [facility] During your visit today, we recorded the following information about you: Temperature Pulse Respiration Blood pressure 97.5 degrees 75/minute 16/minute 138/82 Weight 115.2 kg Patricia Chavis APRN.[facility] 11/20/2017 4:41 PM Signed Subjective HPI HPI Dinesh Cao is a 57 year old male who presents today for CC of cough, sinus pressure. This started 5 weeks ago. Has tried multiple otc medications without relief. Symptoms are worsened by nothing. Risk factors hx of recurrent sinus infections. Just completed a round of augmentin. Asking for levaquin. .Patient presents with: sinus pain and pressure, cough: has had symptoms for over one month and not getting any better PAST MEDICAL HISTORY Diagnosis Date - Achilles tendinitis 02/10/2011 - Allergic rhinitis 02/27/2012 - Allergic rhinitis, cause unspecified - ASHD (arteriosclerotic heart disease) 09/13/2011 - Asthma 11/03/2014 - Cough syncope syndrome - Esophageal reflux Gastroesophageal reflux - Essential hypertension, benign - GERD (gastroesophageal reflux disease) - Hiatal hernia 06/17/2015 [facility] - see scanned documents - Hyperlipidemia LDL goal ANDlt; 100 01/21/2013 - Peripheral vascular disease (HCC) - Pulmonary embolus (HCC) 09/23/2017 left - Syncope 11/06/2017 and collapse - Unspecified asthma(493.90) 2006 PAST SURGICAL HISTORY Procedure Laterality Date - APPENDECTOMY 1988 - COLONOSCOP W/ OR W/O BRSH SPEC 11/17/14 Colonoscopy - EGD W/O OR W/BRUSH/WASH 11/17/14 EGD - KNEE SCOPE,DIAGNOSTIC 08/31/2009 Arthroscopy, knee right [facility] - LAPAROSCOPIC CHOLEYCYSTECTOMY 1999 Cholecystectomy, lap - NASAL SEPTUM REPOS W STABILIZATION 06/2010 - PAST SURGICAL HISTORY OF ruptured valve on back of right knee - PAST SURGICAL HISTORY OF 08/31/09 repair of a torn mansicus - REVISE SECONDARY VARICOSITY 2003 Varicose Vein Surgery, BLE - VASECTOMY 1999 ALLERGIES Propofol (Pf); Vicodin [Hydrocodone-Acetaminophen]; Adhesive Tape (Rosins); Claritin [Loratadine]; Latex; Naprosyn [Naproxen]; Simvastatin; Tetracycline; Vibramycin [Doxycycline Calcium] MEDICATIONS Omeprazole 40 mg capsule Take 1 capsule by mouth once daily. apixaban (ELIQUIS) 5 mg tab tab(s) Take 10 mg by mouth twice daily. albuterol (PROVENTIL) 2.5 mg /3 mL (0.083 %) nebulizer solution Use 3 mL via nebulizer every 4 hours as needed for Wheezing/Shortness of Breath. Use over 5-15minutes. meloxicam (MOBIC) 7.5 mg tablet Take 1 tablet by mouth once daily. Take with food. PROAIR HFA 90 mcg/actuation inhaler ipratropium bromide (ATROVENT) 0.06 % nasal spray Azelastine 0.15 % (205.5 mcg) spry amLODIPine (NORVASC) 5 mg tablet take 1 tablet by mouth once daily atorvastatin (LIPITOR) 20 mg tablet Take 1 tablet by mouth once daily. multivitamin ORAL tablet Take one(1) tablet daily. FAMILY HISTORY Problem Relation Age of Onset - Hypertension Mother - renal stones [Other] [OTHER] Father - Diabetes Son - GERD [Other] [OTHER] Brother Social History Substance Use Topics - Smoking status: Never Smoker - Smokeless tobacco: Never Used - Alcohol use No Review of Systems Constitutional: Negative for chills, fever and weight loss. HENT: Positive for congestion. Negative for ear pain, nosebleeds and sore throat. Respiratory: Positive for cough. Negative for shortness of breath and wheezing. Musculoskeletal: Negative for neck pain. Skin: Negative for rash. Objective Blood pressure 138/82, pulse 75, temperature 36.4 ?C (97.5 ?F), temperature source Tympanic, resp. rate 16, weight 115.2 kg (254 lb), SpO2 96 %. Physical Exam Constitutional: He is oriented to person, place, and time and well-developed, well-nourished, and in no distress. Non-toxic appearance. He does not have a sickly appearance. No distress. HENT: Head: Normocephalic and atraumatic. Right Ear: Hearing, tympanic membrane, external ear and ear canal normal. Left Ear: Hearing, tympanic membrane, external ear and ear canal normal. Nose: Right sinus exhibits maxillary sinus tenderness. Left sinus exhibits maxillary sinus tenderness. Mouth/Throat: Uvula is midline, oropharynx is clear and moist and mucous membranes are normal. Eyes: Conjunctivae and lids are normal. Pupils are equal, round, and reactive to light. Right eye exhibits no discharge. Left eye exhibits no discharge. No scleral icterus. Neck: Trachea normal and normal range of motion. Neck supple. Cardiovascular: Normal rate, regular rhythm and normal heart sounds. Pulmonary/Chest: Effort normal and breath sounds normal. Lymphadenopathy: He has no cervical adenopathy. Neurological: He is alert and oriented to person, place, and time. Skin: No rash noted. He is not diaphoretic. ASSESSMENT/PLAN: 1. Recurrent sinus infections - ICD9: 473.9, ICD10: J32.9 - Will begin treatment with Levaquin - Supportive care with plenty of fluids, rest, and analgesia prn. - Follow up in 3-5 days if symptoms persist or worsen. - LEVOFLOXACIN 500 MG TABLET Prescription instructions reviewed with patient as applicable. Patient advised if symptoms do not improve or if symptoms worsen sooner, to contact the office for further evaluation by their primary care physician. Potential red flag symptoms discussed with the patient. Reviewed appropriate action plan to take if red flag symptoms occur. Patient agreeable to treatment plan. Patricia Chavis APRN.[facility] Chavis APRN.[facility] 11/20/2017 4:25 PM Signed SINUSITIS: You have sinusitis, an infection of the sinus cavities around the nose. This infection usually follows a respiratory illness; it can also be related to allergies, changes in atmospheric pressure (flying, diving), or anything that blocks nasal drainage. Symptoms include: headache, facial pain, a thick nasal discharge, congestion, and cough. The treatment includes antibiotic therapy, increasing oral fluids, and pain medication if needed. Nose spray decongestants (Afrin, Arnaud- Synephrine) and oral decongestants may be needed to reduce congestion and drainage. Rarely the sinus must be irrigated to remove the infected material. Sinusitis can lead to serious complications by spreading to other areas such as the eye or brain. Please call your doctor or return here right away if you have any of the following more serious symptoms: - Unusual swelling around the eye or trouble seeing. - Increasing pain, severe headache, or toothache. - Nausea, vomiting, or unusual drowsiness. Referring Provider: SELF [[id number]] Allergies As of Date: 11/20/2017 Noted Allergy Reaction PROPOFOL (PF) 11/17/2014 14 - Other: See Comments Comments: Did'nt wake up VICODIN (HYDROCODONE-ACETAMINOPHE*02/10/2011 14 - Other: See Comments Comments: Constipation, extreme sleepiness ADHESIVE TAPE (ROSINS) 10/28/2009 CLARITIN (LORATADINE) 12/15/2008 5 - Intolerance Comments: did not help with s/s LATEX 09/26/2012 9 - Itching NAPROSYN (NAPROXEN) 11/26/2005 8 - GI Upset SIMVASTATIN 01/13/2013 14 - Other: See Comments Comments: leg muscle cramping TETRACYCLINE 11/26/2005 8 - GI Upset VIBRAMYCIN (DOXYCYCLINE CALCIUM) 11/26/2005 8 - GI Upset Date Reviewed: 11/20/2017 Reviewed by: Patricia ([facility]) BROOKE Chavis.BILINGUAL LOAN PROCESSOR - Fully Assessed Reason for Visit: sinus pain and pressure, cough [Other] Cmt: has had symptoms for over one month and not getting any better Primary Visit Diagnosis:Recurrent sinus infections [J32.9] Order(s):levoFLOXacin (LEVAQUIN) 500 mg tabletTake 1 tablet by mouth once daily for 7 days.Disp: 7 tabletRfl: 0 Prescriptions as of 11/20/2017 Sig: OMEPRAZOLE 40 MG CAPSULE,RAVEN* Take 1 capsule by mouth once * APIXABAN 5 MG TABLET Take 10 mg by mouth twice mukund* ALBUTEROL SULFATE 2.5 MG/3 ML* Use 3 mL via nebulizer every * MELOXICAM 7.5 MG TABLET Take 1 tablet by mouth once d* Patient taking differently: Take 15 mg by mouth once raúl* PROAIR HFA 90 MCG/ACTUATION A* IPRATROPIUM BROMIDE 42 MCG (0* AZELASTINE 0.15 % (205.5 MCG)* AMLODIPINE 5 MG TABLET take 1 tablet by mouth once d* Patient taking differently: take 2 tablet by mouth once d* ATORVASTATIN 20 MG TABLET Take 1 tablet by mouth once d* * MULTIVITAMIN TABLET Take one(1) tablet daily. 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 This infection usually follows a respiratory illness; it can also be related to allergies, changes in atmospheric pressure (flying, diving), or anything that blocks nasal drainage. Symptoms include: headache, facial pain, a thick nasal discharge, congestion, and cough. The treatment includes antibiotic therapy, increasing oral fluids, and pain medication if needed. Nose spray decongestants (Afrin, Arnaud-Synephrine) and oral decongestants may be needed to reduce congestion and drainage. Rarely the sinus must be irrigated to remove the infected material. Sinusitis can lead to serious complications by spreading to other areas such as the eye or brain. Please call your doctor or return here right away if you have any of the following more serious symptoms: - Unusual swelling around the eye or trouble seeing. - Increasing pain, severe headache, or toothache. - Nausea, vomiting, or unusual drowsiness. Prescriptions ordered this encounter Disp Refills Start End LEVOFLOXACIN 500 MG TABLET 7 ta* 0 11/20/2017 11/27/2017 Route: ORAL Sig: Take 1 tablet by mouth once daily for 7 days. Encounter Status:Closed by PATRICIA CHAVIS YEYO on 11/20/17 CHEST PA AND LATERAL Observed: 11/15/2017 Status: F Source: [place] 11:03 AM [facility] Imaging Services [address] [place] [address] Chest PA and Lateral MR#: [id number] Acct: [id number] Name: DINESH CAO Rep #: [id number] : 1960 M 57 From: Esvin Arnett MD PCP: Jeannette Mosqueda III, MD Status: REG CLI Study: Chest PA and Lateral Date of Exam: 11/15/17 Exam# [id number] Ordering Dr: Karen López STUDY: X-RAY CHEST REASON FOR EXAM: Male, 57 years old. Cough and short of breath. TECHNIQUE: Frontal and lateral views of the chest. COMPARISON: 09/11/2017. FINDINGS: The lungs are clear and expanded. There is no demonstrated pleural abnormality. Normal size heart. Normal mediastinum and philomena. Normal visualized pulmonary arteries. Normal visualized aortic arch and descending thoracic aorta. There are diffuse degenerative changes of the visualized thoracic spine. Normal visualized ribs, clavicles, and shoulders. There is no demonstrated abnormality of the visualized soft tissue structures of the upper abdomen. RAD/Chest PA and Lateral IMPRESSION: No acute chest disease. Electronically Signed: Esvin Arnett MD at 16:52 EDT , Service support , CC: Karen López; Jeannette Mosqueda III, MD Digital Marketing Officer: Signed LUNG SCAN VENT/PERF Observed: 11/15/2017 Status: F Source: [place] 10:23 AM [facility] Imaging Services [address] [place] [address] Lung Scan Vent/Perf MR#: [id number] Acct: [id number] Name: DINESH CAO Rep #: [id number] : 1960 M 57 From: Tucker Arreguin DO PCP: Jeannette Mosqueda III, MD Status: REG CLI Study: Lung Scan Vent/Perf Date of Exam: 11/15/17 Exam# [id number] Ordering Dr: Karen López CLINICAL: 57-year-old male with reported history of apparent pulmonary embolism and suspected pulmonary hypertension. VENTILATION-PERFUSION LUNG SCINTIGRAPHY COMPARISON: CTA of the chest report 09/11/2017, plain film chest radiograph report 11/15/2017 FINDINGS: The patient was administered 49.4 mCi 99m Tc DTPA aerosol. The aerosol ventilation study demonstrates normal ventilation defined in the bilateral lung marino. No segmental or subsegmental ventilatory defects are identified. There is no central clumping of the aerosol visualized. Following the intravenous administration of 5.1 mCi of 99m Tc MAA, the pulmonary perfusion study reveals uniform perfusion throughout both lung marino. There are no segmental or subsegmental perfusion defects consistently identified on review of sequential acquisitions-projections. NM/Lung Scan Vent/Perf IMPRESSION: 1. NORMAL 99m Tc DTPA aerosol ventilation/Tc 99m MAA pulmonary perfusion imaging examination, according to PIOPED II interpretive criteria. (Sotsman et al, Radiology 246: 941, 2008 Sotsman et al, J Nucl Med 49: 1741, 2008). 2. Patients with documented pulmonary hypertension and the presence of low probability, very low probability and normal ventilation-perfusion lung scintigraphy are associated with a low likelihood of thromboembolic pulmonary hypertension. (Mango et al, Chest 84: 679, 1983 Lisbona et al, AJR 144: 27, 1985). Electronically Signed: Tucker Arreguin DO at 8:21 EDT Tel , Service support , CC: Karen López; Jeannette Mosqueda III, MD Digital Marketing Officer: Signed PULMONARY VISIT REPORT Observed: 11/06/2017 Status: F Source: [place] 6:20 PM [facility] [address] [place] [address] OFFICE VISIT Date of Service: 11/06/17 MR#: [id number] Acct: [id number] Name: DINESH CAO Rep #: [id number] : 1960 Provider: Karen López Age/Sex: 57/M Location: [facility] Status: Signed Assessment AND Plan 1. Syncope and collapse R55 Status Acute Plan It is possible that the syncopal episodes occurring with the cough are a vasovagal response. Plan to further workup underlying pulmonary disorders with a VQ scan of the lung to possibly identify chronic thromboembolic pulmonary hypertension. Also plan to repeat complete pulmonary function test to identify any possible changes, which may lead to additional etiologies. 2. Pulmonary embolism on left I26.99 Status Acute Plan Discussed this case with Dr. Doyle. And for VQ scan of the month to evaluate for possible CTEPH. Obtain complete pulmonary function test. Follow-up with Dr. Doyle in 2 months. If test results indicate that further testing is required, patient will be contacted for an earlier appointment or to set up additional testing. Continue current oral anticoagulation. Orders Orders: 3. Chronic cough R05 Status Chronic Plan Deteriorated. Likely a result of an asthma exacerbation secondary to sinusitis. Plan to treat sinusitis with Augmentin for 10 days and a prednisone burst. Patient has been encouraged to contact the office if his symptoms do not show some type of improvement with regard to the cough and wheezing after 48 hours on the medications. Plan Detail Other Medications New: Follow Up 2 Months (BWA) HPI cough syncope: Chief Complaint: Cough HPI Comments Details: Patient presents to the office today for an acute visit regarding cough that is causing a syncopal episodes. The patient reports that his cough has worsened over the past several weeks. He also reports that over the past few days he has coughed so hard he has had multiple syncopal episodes. He reports that Saturday he had 3 episodes, Saturday he did not have any episodes and yesterday he had one episode. He denies any palpitations or chest pain. He is having chest tightness and wheezing. His cough is productive of clear to light yellow sputum. He denies any fever, chills or body aches. He denies any increase in shortness of breath. He currently is using his pro-air rescue inhaler approximately once daily. He is not currently on any maintenance medications. He is on Eliquis twice daily for a pulmonary embolism. With his multiple falls he does note a bruise to the right arm and the left shoulder blade. He has not had any signs of bleeding such as hemoptysis, hematemesis, hematochezia or melena stools. He has not utilized any [id number] medications for this cough. Intake Vital Signs11/06/17 Height 5 ft 11 in 11/06/17 Weight: 252 lb Intake Visit Reasons: cough syncope Accompanied by: Self Is patient in pain?: No Allergies povidone-iodine [From Betadine] Adverse Reaction (Severe, Verified 11/06/17 14:49) Hives soap [From Betadine] Adverse Reaction (Severe, Verified 11/06/17 14:49) Hives adhesive tape Adverse Reaction (Verified 11/06/17 14:49) Rash benzoin Adverse Reaction (Verified 11/06/17 14:49) Rash doxycycline calcium [From Vibramycin] Adverse Reaction (Verified 11/06/17 14:49) constipation doxycycline hyclate [From Vibramycin] Adverse Reaction (Verified 11/06/17 14:49) constpation doxycycline monohydrate [From Vibramycin] Adverse Reaction (Verified 11/06/17 14:49) constipation hydrocodone bitartrate [From Vicodin] Adverse Reaction (Verified 11/06/17 14:49) constipation tetracycline [Tetracycline] Adverse Reaction (Verified 11/06/17 14:49) constipation Medications Atorvastatin Calcium [Lipitor] 20 mg PO QHS 06/17/15 [History Confirmed 11/06/17] Multivitamins,Therapeutic [Multivitamin] 1 tab PO DAILY 06/17/15 [History Confirmed 11/06/17] Acetaminophen [Tylenol Extra Strength] 1,000 mg PO BID 09/12/17 [History Confirmed 11/06/17] albuterol sulfate HFA 90 mcg/actuation aerosol inhaler 2 puff INHALATION Q6H PRN 09/25/17 [History Confirmed 11/06/17] omeprazole 20 mg tablet,delayed release 20 mg PO QDAY tab 09/25/17 [History Confirmed 11/06/17] amlodipine 10 mg tablet 10 mg PO QDAY #90 tab 09/27/17 [Rx Confirmed 11/06/17] apixaban 5 mg tablet 5 mg PO BID #180 tab 09/27/17 [Rx Confirmed 11/06/17] cetirizine 10 mg tablet 10 mg PO QDAY 09/27/17 [History Confirmed 11/06/17] albuterol sulfate 2.5 mg/3 mL (0.083 %) solution for nebulization 2.5 mg INHALATION Q4H PRN ml 11/05/17 [History Confirmed 11/06/17] amoxicillin 875 mg-potassium clavulanate 125 mg tablet 1 tab PO BID #20 tab 11/06/17 [Rx Confirmed 11/06/17] prednisone 20 mg tablet 60 mg PO QDAY #15 tab 11/06/17 [Rx Confirmed 11/06/17] PFSH Medical History Pulmonary embolism on left (Acute) Peripheral vascular disease (Chronic) Asthma, severe persistent (Chronic) GERD (gastroesophageal reflux disease) (Chronic) Aspiration pneumonia of right lower lobe (Acute) Chronic cough (Chronic) Hypersomnia (Acute) PND (paroxysmal nocturnal dyspnea) (Acute) Benign essential hypertension (Chronic) Syncope and collapse (Acute) Acute left lower lobe peripheral PE (Inactive) GERD (gastroesophageal reflux disease) (Inactive) Partially treated aspiration pneumonia (Inactive) 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) Surgical History History of sinus surgery (Resolved) History of vein stripping (Resolved) History of knee surgery (Resolved) History of vasectomy (Resolved) Hx of appendectomy (Resolved) History of cholecystectomy (Resolved) Family History Brother Hypertension Social History Smoking Status: Never smoker second hand exposure: No alcohol intake: never substance use type: does not use Review of Systems Const CONSTITUTIONAL: Positive body ache, sleeping in chair and headache(s); negative anorexia, chills, daytime sleepiness, fever(s), night sweats, oral thrush, stops breathing during sleep, weight loss, fatigue, weight loss, weight gain, frequent colds, seasonal allergies, other or orthopnea EETM Ear Nose Throat Mouth: Positive hearing normal, hoarseness, swallowing Difficulty, headache(s), nasal discharge, sinus pain and sinus pressure; negative hard of hearing, dry mouth in morning, change in vision, itchy eyes, eye pain, ear pain, nose bleed, mouth pain, nasal congestion, post nasal drip, sore throat or other Cardio Cardiovascular: Negative chest pain, chest pain at rest, chest pain with activity, irregular heart rhythm, edema, shortness of breath when lying down, palpitations, murmur or other Resp Respiratory: Positive as per HPI, wheezing, cough cough: Positive productive color: Positive yellow and clear and chest tightness; negative shortness of breath, pain with cough, chest congestion, pain on inspiration, inhalers, increase use of rescue inhalers, snoring, apnea or other Gastro Gastrointestional: Negative bloody stools, change in appetite, difficulty swallowing, reflux, hematemesis, melena stool, loose stool, constipation or other Genitourinary: Positive nocturia; negative blood in urine, pain with urination or other Musc Musculoskeletal: Positive back pain and neck pain; negative body pain or other Skin/Breast Skin/Breast: Positive itching; negative dry skin, rash, unusual bruising, breast lump or other Neuro Neurological: Positive restless legs; negative confusion, weakness or other Psych Psychocological: Negative abnormal sleep pattern, anxiety, thoughts of hurting self/others, hopelessness or other Lymph Lymphatic: Positive easy bruising; negative easy bleeding, swollen lymph nodes or other Exam Const Constitutional: Positive conversant, cooperative, in no acute respiratory distress, healthy appearing, well developed, well nourished, good hygiene and obese Head Head: Positive normocephalic, atraumatic and maxillary sinus tenderness; negative cyanosis of lips/distal nose or frontal sinus tenderness Eyes Eye: Positive clear conjunctiva and nystagmus; negative scleral abnormality Ears Ear: Positive hearing normal and external ears normal; negative hard of hearing Nose Nose: Positive external nose normal and no nasal discharge; negative epistaxis Mouth Mouth: Positive oral mucosae normal, no lesions, good dentition and posterior oropharynx is adequate; negative post nasal drip, malodorous breath or oral thrush present Mallampati Score: II: Mallampati Score Neck Neck: Positive normal visual inspection, full ROM and trachea midline; negative lymphadenopathy, JVD or tender Chest Wall Chest: Positive normal inspection of the chest and symmetric chest movement; negative increased A/P diameter Resp lung sounds: Positive diminished; negative wheezes, wheeze present on forced exhalation, rhonchi, rales or dullness to percussion Cardio Cardiac: Positive S2 normal, S1 normal, regular rhythm and regular rate; negative murmur GI GI: Positive normal to inspection, normal bowel sounds and obese; negative distended Genitourinary: Positive deferred Musc Musculoskeletal: Positive steady gait and ROM normal; negative kyphosis or scoliosis Skin Pulmonary Skin Exam: Positive intact; negative rash, lesion, ulcers, erythema, scaly or dermal atrophy Pulses Pulse: Yes pulses normal x4 extremities Extremities Extremities: No edema, Yes capillary refill normal, No clubbing, No cyanosis, No stasis dermatitis Neuro Neurologic: Yes conversant, Yes no focal neuro deficits, Yes cooperative, Yes normal cognition, Yes normal coordination, Yes normal concentration, Yes understands questions Lymph Lymphatic: No lymphadenopathy, No tenderness, No cervical adenopathy, No axillary adenopathy Psych Appearance: Positive grossly normal, eye contact and well kempt Mental Status: Positive mental status grossly normal Mood: Positive congruent mood Affect: Positive normal affect Coding Level of Care Code Off vis,est,level 4 Diagnoses Syncope and collapse R55 Pulmonary embolism on left I26.99 Chronic cough R05 11/06/17 1820 <Electronically signed by Karen MCLEAN> Date Karen MCLEAN Cosigner Signature: Date (if applicable) CC: Jeannette Mosqueda III, MD PROGRESS Observed: 10/21/2017 Status: COMPLETED Source: [place] 4:12 PM [facility] REPOSITORY HNO ID: [id number] Author: Jeannette Mosqueda III Service: (none) Author Type: Physician Type: Progress Notes Filed: 10/21/2017 4:28 PM Note Text: SUBJECTIVE: This is a 57 year old male that is here today for sinus OROZCO with PND x 10 days. Cough with near syncope. Pressure in R ear. Pro-air inhaler of no benefit (and may worsen). Hx of septoplasty and frontal sinus surgery. PAST MEDICAL HISTORY Diagnosis Date - Achilles tendinitis 02/10/2011 - Allergic rhinitis 02/27/2012 - Allergic rhinitis, cause unspecified - ASHD (arteriosclerotic heart disease) 09/13/2011 - Asthma 11/03/2014 - Cough syncope syndrome - Esophageal reflux Gastroesophageal reflux - Hiatal hernia 06/17/2015 [facility] - see scanned documents - Hyperlipidemia LDL goal < 100 01/21/2013 - Pulmonary embolus (HCC) 09/23/2017 - Unspecified asthma(493.90) 2006 Current Outpatient Prescriptions on File Prior to Visit: Omeprazole 40 mg capsule Take 1 capsule by mouth once daily. apixaban (ELIQUIS) 5 mg tab tab(s) Take 10 mg by mouth twice daily. albuterol (PROVENTIL) 2.5 mg /3 mL (0.083 %) nebulizer solution Use 3 mL via nebulizer every 4 hours as needed for Wheezing/Shortness of Breath. Use over 5-15minutes. meloxicam (MOBIC) 7.5 mg tablet Take 1 tablet by mouth once daily. Take with food. (Patient taking differently: Take 15 mg by mouth once daily. Take with food. ) PROAIR HFA 90 mcg/actuation inhaler ipratropium bromide (ATROVENT) 0.06 % nasal spray Azelastine 0.15 % (205.5 mcg) spry amLODIPine (NORVASC) 5 mg tablet take 1 tablet by mouth once daily (Patient taking differently: take 2 tablet by mouth once daily) atorvastatin (LIPITOR) 20 mg tablet Take 1 tablet by mouth once daily. multivitamin ORAL tablet Take one(1) tablet daily. No current facility-administered medications on file prior to visit. FAMILY HISTORY Problem Relation Age of Onset - Hypertension Mother - renal stones [Other] [OTHER] Father - Diabetes Son - GERD [Other] [OTHER] Brother Social History Substance Use Topics - Smoking status: Never Smoker - Smokeless tobacco: Never Used - Alcohol use No BP 136/77 Pulse 71 Resp 16 Wt 114.3 kg (252 lb) BMI 35.15 kg/m2 . OBJECTIVE: APPEARANCE Well appearing, alert, in no acute distress, well-hydrated, well nourished., Obese EYES conjunctivae and sclerae normal EARS External ears normal, canals clear NOSE/SINUS Nares normal. Septum midline. Mucosa normal. No drainage, positive findings: sinus tenderness frontal bilateral THROAT normal, no erythema NECK Negative findings: no adenopathy, trachea midline and normal to palpitation LUNG clear to auscultation ASSESSMENT: sinusitis, acute PLAN: cefdinir 300mg twice/day same medications TEO Manjarrez MD, III MD PROGRESS Observed: 09/27/2017 Status: COMPLETED Source: [place] 7:19 PM [facility] REPOSITORY O ID: [id number] Author: Jeannette Mosqueda III Service: (none) Author Type: Physician Type: Progress Notes Filed: 09/27/2017 7:19 PM Note Text: Dinesh, The lab results look fine. Jeannette Mosqueda III, MD, FAAFP CARDIOLOGY VISIT Observed: 09/27/2017 Status: F Source: [place] REPORT 10:56 AM [facility] REPOSITORY [facility] [address] [place] [address] OFFICE VISIT Date of Service: 09/27/17 MR#: [id number] Acct: [id number] Name: DINESH CAO Rep #: [id number] : 1960 Provider: Bernardino Armstrong MD Age/Sex: 57/M Location: [facility] Status: Signed HPI High BP: Details: DINESH CAO, is a 57 M who presents to the office today for for outpatient cardiovascular follow-up. He has had intermittent events of near syncope or syncope which again has been attributed to his underlying pulmonary disease process and his cough mediated situational vasovagal mediated syncope. He was recently hospitalized. He was found to have evidence of a left lower lobe pulmonary emboli. He was placed on anticoagulant therapy and released home. He did have a transthoracic echocardiogram performed during his hospitalization. His LV was thought to be normal. His estimated LVEF was 65%. He had mild TR. His estimated RV systolic pressure was 43 mmHg. Since that time he has been concerned of his blood pressures being elevated. He has contacted the office. He was advised on adjustment of his antihypertensive therapy. He does bring with him his blood pressure recordings. His systolic blood pressures have been running between 140 and 1 60 mmHg for the most part with diastolic blood pressures running between 70 and 90 mmHg for the most part. He denies any other acute symptoms of ongoing chest discomfort, orthopnea or PND, worsening peripheral pitting edema, or palpitations. Intake Vital Signs09/27/17 Height 5 ft 11 in 09/27/17 Weight: 250 lb 1 oz 09/27/17 Body Mass Index (BMI) 34.9 09/27/17 Blood Pressure 130/70 Intake Visit Reasons: High BP Allergies povidone-iodine [From Betadine] Adverse Reaction (Severe, Verified 09/27/17 10:08) Hives soap [From Betadine] Adverse Reaction (Severe, Verified 09/27/17 10:08) Hives adhesive tape Adverse Reaction (Verified 09/27/17 10:08) Rash benzoin Adverse Reaction (Verified 09/27/17 10:08) Rash doxycycline calcium [From Vibramycin] Adverse Reaction (Verified 09/27/17 10:08) constipation doxycycline hyclate [From Vibramycin] Adverse Reaction (Verified 09/27/17 10:08) constpation doxycycline monohydrate [From Vibramycin] Adverse Reaction (Verified 09/27/17 10:08) constipation hydrocodone bitartrate [From Vicodin] Adverse Reaction (Verified 09/27/17 10:08) constipation tetracycline [Tetracycline] Adverse Reaction (Verified 09/27/17 10:08) constipation Medications Atorvastatin Calcium [Lipitor] 20 mg PO QHS 06/17/15 [History Confirmed 09/27/17] Multivitamins,Therapeutic [Multivitamin] 1 tab PO DAILY 06/17/15 [History Confirmed 09/27/17] Acetaminophen [Tylenol Extra Strength] 1,000 mg PO BID 09/12/17 [History Confirmed 09/27/17] aclidinium bromide 400 mcg/actuation breath activated powder inhaler 1 inh INHALATION QDAY ea 09/25/17 [History Confirmed 09/27/17] albuterol sulfate HFA 90 mcg/actuation aerosol inhaler 2 puff INHALATION Q6H PRN 09/25/17 [History Confirmed 09/27/17] omeprazole 20 mg tablet,delayed release 20 mg PO QDAY tab 09/25/17 [History Confirmed 09/27/17] amlodipine 10 mg tablet 10 mg PO QDAY #90 tab 09/27/17 [Rx Confirmed 09/27/17] apixaban 5 mg tablet 5 mg PO BID #180 tab 09/27/17 [Rx Confirmed 09/27/17] cetirizine 10 mg tablet 10 mg PO QDAY 09/27/17 [History Confirmed 09/27/17] Nurse's Note: Patient had recent syncopal episode while at Basketball game 09/12/17. Patient states that he doesnt remember what happened. Patient reports that people described him as appearing burks and lost consciousness for about 5 minutes. Patient reports that BP was elevated and continues to be elevated. Patient reports that he had another syncopal episode on Saturday while at the office. Patient stated that he was out for a couple of seconds. 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) Surgical History History of cholecystectomy (Resolved) History of knee surgery (Resolved) History of sinus surgery (Resolved) History of vasectomy (Resolved) History of vein stripping (Resolved) Hx of appendectomy (Resolved) Family History Brother Hypertension Social History Smoking Status: Never smoker alcohol intake: never ROS Const Const: Positive for fatigue (increased since 09/12/17); negative for weakness, weight gain, weight loss, frequent falls or excessive sweating Eyes Eyes: Negative for change in vision, blurry vision or transient loss of vision ENT ENT: Positive for dizziness, Negative for balance problems Cardio Chest Pain: No Palpitations: Positive for No Edema: None Muscle aches with walking: None Resp Respiratory: Negative for SOB with activity or SOB at rest Additional Details: Patient reports lingering dry cough GI GI: Negative vomiting or vomiting blood/hematemesis : Negative for hematuria Musc Musc: Positive for muscle aches/ myalgia (generalized aches and pain) and joint pain (HX arthritis); negative for balance problems or muscle weakness Skin Skin: Negative non-healing lesions or rash Neuro Neuro: Negative for weakness, Negative for blurry vision, Positive for dizziness, Positive for lightheadedness, Negative for frequent falls, Negative for orthostatic symptoms, Positive for syncope (x2 episodes since 09/12/17) Melvin Hematologic/Lymphatic: Negative for easy bleeding Endo Endo: Positive for fatigue (increased since 09/12/17); negative for excessive sweating Psych Psych: Negative for anxiety or depression Allergy Allergy/Immunology: Negative for hives, Negative for rash Cardiology Exam Const Appearance: cooperative, healthy appearing, comfortable, no acute distress, well developed and well groomed Nutritional Appearance: average body habitus Orientation: alert, awake and oriented x3 Head Head: normal to inspection, normocephalic and atraumatic Ears: hearing grossly normal bilaterally Nose: external nose normal Face and Sinus: face symmetric Mouth: oral mucosae normal Teeth and gingiva: dentition normal Eyes General: appearance normal, both eyes and all related structures Eyelids: eyelids normal Pupils: PERRL EOM: EOM intact bilaterally Neck Neck: normal visual inspection and full ROM Carotids: normal carotid upstroke Chest Chest inspection: normal inspection of the chest and symmetric chest movement Auscultation: Bilateral: Clear to Auscultation Cardio Palpation: normal PMI Rate: regular rate Heart sounds: S1 normal and S2 normal GI GI: normal to inspection, soft, no hepatosplenomegaly and bowel sounds present Neuro General: alert, awake and oriented x3 Skin Skin: no rashes or lesions noted Extremities Pulses: Normal: Right Femoral Pulse, Left Femoral Pulse, Right Radial Pulse, Left Radial Pulse Lower Extremity Edema: +1: Left Musculoskel Musculoskeletal: joint tenderness (Left Ankle) Psych Psychological: normal affect Assessment AND Plan 1. Benign essential HTN I10 Plan At the present time his blood pressures have been reviewed. He will increase his amlodipine to 10 mg a day. He will continue to monitor his blood pressure response and keep the office updated. 2. Syncope and collapse R55 Plan He has had a history of syncope. This is thought related to cough mediated vasovagal mediated situational syncope. He will continue as best he can to take care of his underlying pulmonary disease process to minimize the opportunity for these events to occur. 3. Pulmonary embolism I26.99 Plan He was recently diagnosed with left lower lobe pulmonary emboli. He will continue medical management with anticoagulant therapy. He does have a follow- up appointment with Dr. Doyle in the near future. This may be beneficial with respect to the need for further evaluation and care as well as the length of anticoagulant therapy. Plan Detail Other Medications New: Refilled: Discontinued: Additional Comments Otherwise she will continue routine outpatient cardiovascular follow-up. Thank you for allowing me to participate in the care of your patient. Please don't hesitate to call if any issues arise. This note was generated using a voice recognition system and there may be incorrect words, spelling or punctuation that were not noted when reviewing the office note prior to saving. Follow Up 6 Months (PF) Coding Level of Care Code Off vis,est,level 3 Diagnoses Benign essential HTN I10 Syncope and collapse R55 Pulmonary embolism I26.99 Chronicity: acute Pulmonary embolism type: other 09/27/17 1056 <Electronically signed by Bernardino Armstrong MD> Date Bernardino Armstrong MD Cosigner Signature: Date (if applicable) CC: Dewayne Doyle MD; Jeannette Mosqueda III, MD CBC Collected: 09/23/2017 Status: F Source: [place] 3:42 PM [facility] REPOSITORY TYPE CODE TESTS RESULT OUT OF REFERENCE UNITS RANGE LAB WBC 3.70-11.00 k/uL WBC 6.83 LAB RBC 4.20-6.00 m/uL RBC 4.39 LAB HGB 13.0-17.0 g/dL Hemoglobin 13.4 LAB HCT 39.0-51.0 % Hematocrit 41.9 LAB MCV 80.0-100.0 fL MCV 95.4 LAB MCH 26.0-34.0 pG MCH 30.5 LAB MCHC 30.5-36.0 g/dL MCHC 32.0 LAB RDWCV 11.5-15.0 % RDW-CV 12.0 LAB PLTCT 150-400 k/uL Platelet High Count 427 LAB MPV 9.0-12.7 fL MPV 9.1 LAB ABSNUC <0.01 k/uL Absolute nRBC <0.01 Performed By: #### CBC #### [facility] [address] [place], [place] [address] PROGRESS Observed: 09/23/2017 Status: COMPLETED Source: [place] 3:07 PM [facility] [place] REPOSITORY HNO ID: [id number] Author: Jeannette Mosqueda III Service: (none) Author Type: Physician Type: Progress Notes Filed: 09/23/2017 6:49 PM Note Text: Visit for Transitional Care Management CC: Dinesh is a 57 year old male following 11, days after the Hospital/Penitentiary Discharge for evaluation of syncope. Reports reviewed. (14 pages) CTA chest = PE in L lung. MT ruled out. Echocardiogram and chest x-ray negative. He had severe pain lat aspect LLE the week before, and he had venous doppler studies in ER (negative). Pt had ortho surgery in Jun 2017 for repair of L ankle tendon. He had been walking and back to work since Jul. Discharged on eliquis 10mg BID since 09/12. Bruise dorsum R hand--resolved. No gross bleeding. 2. poor night time sleep, but sleepy during the day 3. recurrence of annoying daytime/nighttime constant cough. Known asthma under care of Dr Doyle. HPI: He has been on mobic 7.5 mg daily for awhile even since placed on eliquis. Notes some weakness and some black stool today. No chest pain, angina, pleuritic pain, cough. PAST MEDICAL HISTORY: PAST MEDICAL HISTORY Diagnosis Date - Achilles tendinitis 02/10/2011 - Allergic rhinitis 02/27/2012 - Allergic rhinitis, cause unspecified - ASHD (arteriosclerotic heart disease) 09/13/2011 - Asthma 11/03/2014 - Cough syncope syndrome - Esophageal reflux Gastroesophageal reflux - Hiatal hernia 06/17/2015 [facility] - see scanned documents - Hyperlipidemia LDL goal < 100 01/21/2013 - Unspecified asthma(493.90) 2006 ALLERGIES: ALLERGIES Allergen Reactions - Propofol (Pf) Other: See Comments Did'nt wake up - Vicodin [Hydrocodon* Other: See Comments Constipation, extreme sleepiness - Adhesive Tape (Georgina* - Claritin [Loratadin* Intolerance did not help with s/s - Latex Itching - Naprosyn [Naproxen] GI Upset - Simvastatin Other: See Comments leg muscle cramping - Tetracycline GI Upset - Vibramycin [Doxycyc* GI Upset MEDICATIONS: Current Outpatient Prescriptions: apixaban (ELIQUIS) 5 mg tab tab(s) Take 10 mg by mouth twice daily. meloxicam (MOBIC) 7.5 mg tablet Take 1 tablet by mouth once daily. Take with food. Cfzeeedkypzlneu-Jpvzdjzoe-MB (BROMFED DM) 2-30-10 mg/5 mL syrup Take 5 mL by mouth four times daily as needed. aclidinium bromide (TUDORZA PRESSAIR) 400 mcg/actuation aepb inhaler Inhale 1 Puff as instructed once daily. Indications: CHRONIC OBSTRUCTIVE PULMONARY DISEASE WITH BRONCHOSPASMS PROAIR HFA 90 mcg/actuation inhaler ipratropium bromide (ATROVENT) 0.06 % nasal spray Azelastine 0.15 % (205.5 mcg) spry amLODIPine (NORVASC) 5 mg tablet take 1 tablet by mouth once daily atorvastatin (LIPITOR) 20 mg tablet Take 1 tablet by mouth once daily. albuterol sulfate (PROAIR RESPICLICK) 90 mcg/actuation aepb Inhale 2 Puffs as instructed every 4 hours as needed (wheezing). albuterol 2.5 mg /3 mL (0.083 %) nebulizer solution Use 3 mL via nebulizer every 4 hours as needed for Wheezing/Shortness of Breath. Use over 5-15minutes. multivitamin ORAL tablet Take one(1) tablet daily. No current facility-administered medications for this visit. SOCIAL HISTORY: Social History Substance Use Topics - Smoking status: Never Smoker - Smokeless tobacco: Never Used - Alcohol use No FAMILY HISTORY: FAMILY HISTORY Problem Relation Age of Onset - Hypertension Mother - renal stones [Other] [OTHER] Father - Diabetes Son - GERD [Other] [OTHER] Brother REVIEW OF SYSTEMS: PHYSICAL EXAMINATION BP 138/73 Pulse 66 Resp 16 Wt 245 lb (111.1kg) General appearance: well appearing, alert, in no acute distress, well-hydrated, well nourished Skin: Skin color, texture, turgor normal, no suspicious rashes or lesions, no ecchymoses Head: normal Eyes: Adequate injection of the conjunctival capillaries in no ecchymoses. Ears: Nose/Sinuses: Oropharynx: Neck: Supple, no adenopathy; thyroid symmetric, normal size, no bruits Back: Lungs: clear to auscultation, no wheezing or rhonchi Heart: RRR without murmur, gallop, or rubs. No ectopy Abdomen: Extremities: No lower leg edema. No tenderness of calves or thighs Musculoskeletal: Peripheral pulses: Neuro: IMP: PE.--on eliquis weakness--?nsaid induced GI bleeding/anemia? hypertension-at goal Plan: discontinue meloxicam and all other nsaids(advil,aleve, etc) watch for continued black stool CBC, stool for blood reduce eliquis 5 mg twice/day same other medications Jeannette Mosqueda III MD September 23, 2017 3:07 PM CNOV Observed: 09/23/2017 Status: COMPLETED Source: [place] 3:00 PM [facility] REPOSITORY Office Visit (FAMPWS) DINESH CAO ([id number]) 1960 M Date Time Provider Department 09/23/17 3:00 PM JEANNETTE MOSQUEDA III During your visit today, we recorded the following information about you: Pulse Respiration Blood pressure Weight 66/minute 16/minute 138/73 111.1 kg Jeannette Mosqueda III MD 09/23/2017 6:49 PM Signed Visit for Transitional Care Management CC: Dinesh is a 57 year old male following 11, days after the Hospital/Penitentiary Discharge for evaluation of syncope. Reports reviewed. (14 pages) CTA chest = PE in L lung. MT ruled out. Echocardiogram and chest x-ray negative. He had severe pain lat aspect LLE the week before, and he had venous doppler studies in ER (negative). Pt had ortho surgery in Jun 2017 for repair of L ankle tendon. He had been walking and back to work since Nov. Discharged on eliquis 10mg BID since 09/12. Bruise dorsum R hand--resolved. No gross bleeding. 2. poor night time sleep, but sleepy during the day 3. recurrence of annoying daytime/nighttime constant cough. Known asthma under care of Dr Doyle. HPI: He has been on mobic 7.5 mg daily for awhile even since placed on eliquis. Notes some weakness and some black stool today. No chest pain, angina, pleuritic pain, cough. PAST MEDICAL HISTORY: PAST MEDICAL HISTORY Diagnosis Date - Achilles tendinitis 02/10/2011 - Allergic rhinitis 02/27/2012 - Allergic rhinitis, cause unspecified - ASHD (arteriosclerotic heart disease) 09/13/2011 - Asthma 11/03/2014 - Cough syncope syndrome - Esophageal reflux Gastroesophageal reflux - Hiatal hernia 06/17/2015 [facility] - see scanned documents - Hyperlipidemia LDL goal ANDlt; 100 01/21/2013 - Unspecified asthma(493.90) 2006 ALLERGIES: ALLERGIES Allergen Reactions - Propofol (Pf) Other: See Comments Did'nt wake up - Vicodin [Hydrocodon* Other: See Comments Constipation, extreme sleepiness - Adhesive Tape (Georgina* - Claritin [Loratadin* Intolerance did not help with s/s - Latex Itching - Naprosyn [Naproxen] GI Upset - Simvastatin Other: See Comments leg muscle cramping - Tetracycline GI Upset - Vibramycin [Doxycyc* GI Upset MEDICATIONS: Current Outpatient Prescriptions: apixaban (ELIQUIS) 5 mg tab tab(s) Take 10 mg by mouth twice daily. meloxicam (MOBIC) 7.5 mg tablet Take 1 tablet by mouth once daily. Take with food. Frcqgikmcrtgvdy-Azldpyvcd-FQ (BROMFED DM) 2-30-10 mg/5 mL syrup Take 5 mL by mouth four times daily as needed. aclidinium bromide (TUDORZA PRESSAIR) 400 mcg/actuation aepb inhaler Inhale 1 Puff as instructed once daily. Indications: CHRONIC OBSTRUCTIVE PULMONARY DISEASE WITH BRONCHOSPASMS PROAIR HFA 90 mcg/actuation inhaler ipratropium bromide (ATROVENT) 0.06 % nasal spray Azelastine 0.15 % (205.5 mcg) spry amLODIPine (NORVASC) 5 mg tablet take 1 tablet by mouth once daily atorvastatin (LIPITOR) 20 mg tablet Take 1 tablet by mouth once daily. albuterol sulfate (PROAIR RESPICLICK) 90 mcg/actuation aepb Inhale 2 Puffs as instructed every 4 hours as needed (wheezing). albuterol 2.5 mg /3 mL (0.083 %) nebulizer solution Use 3 mL via nebulizer every 4 hours as needed for Wheezing/Shortness of Breath. Use over 5-15minutes. multivitamin ORAL tablet Take one(1) tablet daily. No current facility-administered medications for this visit. SOCIAL HISTORY: Social History Substance Use Topics - Smoking status: Never Smoker - Smokeless tobacco: Never Used - Alcohol use No FAMILY HISTORY: FAMILY HISTORY Problem Relation Age of Onset - Hypertension Mother - renal stones [Other] [OTHER] Father - Diabetes Son - GERD [Other] [OTHER] Brother REVIEW OF SYSTEMS: PHYSICAL EXAMINATION BP 138/73 Pulse 66 Resp 16 Wt 245 lb (111.1kg) General appearance: well appearing, alert, in no acute distress, well-hydrated, well nourished Skin: Skin color, texture, turgor normal, no suspicious rashes or lesions, no ecchymoses Head: normal Eyes: Adequate injection of the conjunctival capillaries in no ecchymoses. Ears: Nose/Sinuses: Oropharynx: Neck: Supple, no adenopathy; thyroid symmetric, normal size, no bruits Back: Lungs: clear to auscultation, no wheezing or rhonchi Heart: RRR without murmur, gallop, or rubs. No ectopy Abdomen: Extremities: No lower leg edema. No tenderness of calves or thighs Musculoskeletal: Peripheral pulses: Neuro: IMP: PE.--on eliquis weakness--?nsaid induced GI bleeding/anemia? hypertension-at goal Plan: discontinue meloxicam and all other nsaids(advil,aleve, etc) watch for continued black stool CBC, stool for blood reduce eliquis 5 mg twice/day same other medications Jeannette Mosqueda III MD September 23, 2017 3:07 PM Jeannette Mosqueda III MD 09/23/2017 3:33 PM Signed Plan: discontinue meloxicam and all other nsaids(advil,aleve, etc) watch for continued black stool CBC, stool for blood reduce eliquis 5 mg twice/day same other medications Jeannette Mosqueda III MD Referring Provider: SELF [200] Allergies As of Date: 09/23/2017 Noted Allergy Reaction PROPOFOL (PF) 11/17/2014 14 - Other: See Comments Comments: Did'nt wake up VICODIN (HYDROCODONE-ACETAMINOPHE*02/10/2011 14 - Other: See Comments Comments: Constipation, extreme sleepiness ADHESIVE TAPE (ROSINS) 10/28/2009 CLARITIN (LORATADINE) 12/15/2008 5 - Intolerance Comments: did not help with s/s LATEX 09/26/2012 9 - Itching NAPROSYN (NAPROXEN) 11/26/2005 8 - GI Upset SIMVASTATIN 01/13/2013 14 - Other: See Comments Comments: leg muscle cramping TETRACYCLINE 11/26/2005 8 - GI Upset VIBRAMYCIN (DOXYCYCLINE CALCIUM) 11/26/2005 8 - GI Upset Date Reviewed: 09/23/2017 Reviewed by: Giana ([facility]) SARAH Orellana - Fully Assessed Reason for Visit: Hospital Follow Up [177] Primary Visit Diagnosis:Hospital discharge follow-up [Z09] Other Visit Diagnoses:Essential hypertension, benign [I10] Other acute pulmonary embolism without acute cor pulmonale (HCC) [I26.99] Fatigue, unspecified type [R53.83] Black stool [K92.1] correction current use of anticoagulant therapy [Z79.01] Order(s):albuterol (PROVENTIL) 2.5 mg /3 mL (0.083 %) nebulizer solutionUse 3 mL via nebulizer every 4 hours as needed for Wheezing/Shortness of Breath. Use over 5-15minutes.Disp: 60 VialRfl: 3 FECAL OCCULT BLOOD TEST [SQIFOBT] Order #: [id number] FUTURE CBC [SQCBC] Order #: [id number] FUTURE Prescriptions as of 09/23/2017 Sig: APIXABAN 5 MG TABLET Take 10 mg by mouth twice mukund* ALBUTEROL SULFATE 2.5 MG/3 ML* Use 3 mL via nebulizer every * MELOXICAM 7.5 MG TABLET Take 1 tablet by mouth once d* BROMPHENIRAMINE-PSEUDOEPHEDRI* Take 5 mL by mouth four times* ACLIDINIUM BROMIDE 400 MCG/AC* Inhale 1 Puff as instructed o* PROAIR HFA 90 MCG/ACTUATION A* IPRATROPIUM BROMIDE 42 MCG (0* AZELASTINE 0.15 % (205.5 MCG)* AMLODIPINE 5 MG TABLET take 1 tablet by mouth once d* ATORVASTATIN 20 MG TABLET Take 1 tablet by mouth once d* ALBUTEROL SULFATE 90 MCG/ACTU* Inhale 2 Puffs as instructed * * MULTIVITAMIN TABLET Take one(1) tablet daily. 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] INVALID FOR*10/04/2014 Asthma [J45.909] INVALID FOR*08/16/2017 Cough syncope [R05] INVALID FOR* Severe persistent asthma without complication [*INVALID FOR* Pulmonary embolus (HCC) [I26.99] 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 Use over 5-15minutes. Medications Discontinued During This Encounter codeine-guaiFENesin (GUAIFENESIN AC)* 240 * 0 04/13/2017 09/23/2017 Class: Print RX Route: ORAL Sig: Take 10 mL by mouth four times daily as needed. Disc: Course of therapy completed esomeprazole (NEXIUM) 40 mg capsule 0 04/21/2015 09/23/2017 Class: Historical Med Route: ORAL Sig: Take 1 capsule by mouth daily before breakfast. 1/2 hr before meal. Disc: Discontinued by Patient guaiFENesin (MUCINEX) 600 mg 12 hr t* 30 t* 0 08/11/2017 09/23/2017 Route: ORAL Sig: Take 2 tablets by mouth twice daily. Disc: Course of therapy completed albuterol 2.5 mg /3 mL (0.083 %) neb* 60 V* 3 04/15/2014 09/23/2017 Route: NEBULIZATION -UNSPEC Sig: Use 3 mL via nebulizer every 4 hours as needed for Wheezing/Shortness of Breath. Use over 5-15minutes. Disc: Reason for discontinue is not on file. Encounter Status:Closed by JEANNETTE MOSQUEDA III, MD on 09/23/17 DISCHARGE SUMMARY Observed: 09/13/2017 Status: F Source: [place] 2:52 PM [facility] Medical Records Department [address] [place] [address] Discharge Summary 09/12/17 1421 MR#: [id number] Acct: [id number] Name: DINESH CAO Rep #: [id number] : 1960 57 From: [facility] PCP: Jeannette Mosqueda III, MD Status: DIS GUNNAR Y [id number] <Ozzie Driscoll - Last Filed: 09/12/17 14:21> Discharge Date and Diagnosis Date of Admission: 09/12/17 Date of Discharge: 09/12/17 - Primary Discharge Diagnosis Active and Suspected Problems Acute left lower lobe peripheral PE (Acute) Syncope and collapse (Acute) - Secondary Discharge Diagnosis Chronic Problems Benign essential hypertension (Chronic) 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 CT/CTA Chest W/WO Contrast IMPRESSION: Single small filling defect consistent with small pulmonary embolism in a proximal peripheral branch of left lower lobe pulmonary artery. No other pulmonary emboli are seen. No infiltrate is seen. Small hiatal hernia. 09/12/17 05:55 Echo Complete [ECHO] AM (NON MEDS) Interpretation Summary Normal LV size. Left ventricular systolic function is normal. The estimated ejection fraction is 65 %. Pulmonary artery systolic pressure is 43 mmHg. Mild pulmonary hypertension. Operations: None Procedures: 2-D Echocardiogram Summary of Care Provided: Physical exam on day of discharge: General: Resting comfortably NAD Psych: A/Ox3 normal affect HEENT: [place] AT NC Neck: Supple NT CV: RRR no m/t/r/g/h Resp: CTA Abd: [id number] Soft NT no guarding or rigidity Ext: DP2+= no edema Skin: W/D normal turgor Lymph/Heme: No active bleeding or adenopathy Neuro: CN2-12 intact Hospital course: The patient is a 57 year old M who became dizzy lightheaded and collapsed, losing consciousness at a basketball game prior to admission. He was brought to the emergency room by squad. He had a CTA of the chest which demonstrated pulmonary embolism. He was admitted to telemetry unit and placed on Eliquis. He underwent an echocardiogram which was unremarkable. We check orthostatic vitals on him which were negative. He had no change in his EKG or telemetry and had a negative troponin 4. LDL was normal at 65. Orthostatic vitals were checked and were negative. It was felt that his syncopal episode was secondary to the pulmonary embolism. He had no prior history of blood clots. We also checked an ultrasound of his lower extremities to assess for source of the emboli as he had surgery on his left lower extremity last June, tendon repair, however this was negative. He remained in stable condition and was discharged home on Eliquis. This patient was seen by Ozzie Driscoll PA-C under the supervision of Doctor Dunn. [] Discharge Diet: Low fat/ Low Cholesterol, 4000 mg Sodium Diet Discharge Activity: Return to Normal Activity Home Medications: Medications to take at Discharge Albuterol Inhaler [Ventolin Hfa] 1 puff INHALATION Q6H PRN PRN 08/26/13 Amlodipine [Norvasc] 5 mg PO DAILY 06/17/15 Atorvastatin Calcium [Lipitor] 20 mg PO QHS 06/17/15 Esomeprazole Mag Trihydrate [Nexium] 40 mg PO DAILY 06/17/15 Meloxicam [Mobic] 15 mg PO DAILY 06/17/15 Multivitamins,Therapeutic [Multivitamin] 1 tablet PO DAILY 06/17/15 Acetaminophen [Tylenol Extra Strength] 1,000 mg PO BID 09/12/17 Apixaban [Eliquis] 5 mg PO BID #68 tab 09/12/17 Following Prescrptions Were Given to Patient: Apixaban [Eliquis] 5 mg PO BID #68 tab Primary Care Physician: Jeannette Mosqueda III, MD [Primary Care Provider] - Please follow up with your Primary Care Physician in: 1-2 weeks Disposition: Home Minutes spent on discharge:: 40 Patient Condition:: Stable Meaningful Use Info Meaningful Use Diagnoses (Choose all that apply): VTE - VTE Anticoag overlap given w/in hospital stay or rx'd at dc?: No Pt receive overlap for 5 days?: No Reason overlap not ordered, prescribed, or given for 5 days: Procedure Not Indicated <Korey Dunn - Last Filed: 09/13/17 14:51> Discharge Date and Diagnosis - Secondary Discharge Diagnosis Chronic Problems Benign essential hypertension (Chronic) 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 He had a history of left ankle surgery couple of months ago and according to his , he remained an active most of his time during the first month. He was treated with Eliquis for anticoagulation. 2D echocardiogram revealed ejection fraction of 65%, mild pulmonary hypertension. His other routine blood work was unremarkable. His EKG showed no evidence of acute ischemic changes. Troponin was negative 4. Respiratory status remained stable. Venous Doppler of the left lower extremity showed no evidence of acute DVT. This pulmonary embolism considered provoked due to recent surgery of left ankle with prolonged inactivity although patient has been active for the last month. Eliquis patient discharged home in a stable medical condition, discharged on Eliquis loading dose followed by maintenance dose for 3 months, discharged on his other chronic pain medication without any changes, recommended follow-up with PCP in 1-2 weeks. . Minutes spent on discharge:: 26 Meaningful Use Info Meaningful Use Diagnoses (Choose all that apply): None applicable Code Visit OBSV Augusto HERNANDEZ M: [id number] Observation care discharge 09/12/17 1427 <Electronically signed by Ozzie HDZ> Date Ozzie HDZ 09/13/17 1452<Electronically signed by Korey Dunn MD> Cosigner Signature (if applicable): Date Korey Dunn MD CC: ANDREINA Driscoll; Jeannette Mosqueda III, MD; Korey Dunn Signed 12 LEAD ELECTROCARDIOGRAM Observed: 09/13/2017 Status: F Source: [place] 1:20 PM [facility] Cardiovascular Services [address] [place] [address] [place] [address] 12 Lead EKG 09/11/171941 MR#: [id number] Acct: [id number] Name: DINESH CAO Rep #: [id number] : 1960 57 From: Edy Redman MD Attending Dr: Korey Dunn Status: DIS GUNNAR Ordering Dr: Clem Solomon MD Date: 09/11/17 Location: [facility] Sex: M C Admitted: 09/12/17 Test Reason : SYNCOPE Blood Pressure : / mmHG Vent. Rate : 071 BPM Atrial Rate : 071 BPM P-R Int : 136 ms QRS Dur : 094 ms QT Int : 408 ms P-R-T Axes : 021 020 032 degrees QTc Int : 443 ms Poor data quality, interpretation may be adversely affected Normal sinus rhythm Normal ECG Confirmed by EDY REDMAN MD ([id number]), marketing editor SONAM SALAZAR ([id number]) on 09/13/2017 1:20:20 PM Referred By: Confirmed By:EDY REDMAN MD 09/13/17 1320 Date Edy Redman MD CC: Jeannette Mosqueda III, MD Signed VENOUS DUPLEX LOWER Observed: 09/12/2017 Status: F Source: [place] EXTREMITY 2:36 PM [facility] Cardiovascular Services [address] [place] [address] Venous Duplex US - Jaciel Extrem 09/12/17 1216 MR#: [id number] Acct: [id number] Name: DINESH CAO Rep #: [id number] : 1960 57 From: Jonnathan Mosqueda MD Attending Dr: Korey Dunn Status: ADM GUNNAR Ordering Dr: Ozzie Driscoll Date: 09/12/17 Location: [facility] Sex: M C Admitted: 09/12/17 Reason For Study: PE RIGHT LEFT CFV is compressible, spontaneous, phasic, CFV is compressible, spontaneous, phasic, competent and demonstrates normal competent, and demonstrates normal augmentation. augmentation. FV is compressible, spontaneous, phasic, FV is compressible, spontaneous, phasic, competent and demonstrates normal competent and demonstrates normal augmentation. augmentation. POP V is compressible, spontaneous, phasic, POP V is compressible, spontaneous, phasic, competent and demonstrates normal competent and demonstrates normal augmentation. augmentation. T/P Trunk is compressible. T/P Trunk is compressible. PTV is compressible. PTV is compressible. RT PerV is compressible. LT PerV is compressible. GSV is harvested. GSV is harvested. Procedure Exam performed portable in patient room. The exam was diagnostic. A preliminary report was called and/or faxed to Dr. Dunn and Arlette MORALES. Interpretation Summary No evidence for acute deep venous thrombosis bilateral lower extremities with surgically harvested bilateral great saphenous veins. Ordering Physician: Ozzie Driscoll Performed By: Thien Morrison, RVT 09/12/17 1435 Date Jonnathan Mosqueda MD CC: ANDREINA Driscoll; Jeannette Mosqueda III, MD Date Dictated: 09/12/17 1216 Date Transcribed: 09/12/17 1435 Digital Marketing Officer: Signed DISCHARGE INSTRUCTION Observed: 09/12/2017 Status: F Source: [place] 2:21 PM [facility] Medical Records Department [address] [place] [address] [place] [address] Instructions for Home/Discharge Instructions 09/12/17 1420 MR#: [id number] Acct: [id number] Name: DINESH CAO Rep #: [id number] : 1960 57 From: Ozzie HDZ PCP: Jeannette Mosqueda III, MD Status: ADM GUNNAR - Discharge Diagnoses Current Active Problems: Current Active and Chronic Problems Acute left lower lobe peripheral PE (Acute) Syncope and collapse (Acute) You will use the following diet at home:: Cardiac Your food should be the consistency of: Regular Your liquids should be the consistency of: Regular/Thin Discharge Activity: Return to Normal Activity Allergies/Adverse Reactions: Allergies adhesive tape Adverse Reaction (Verified 09/11/17 19:46) Rash benzoin Adverse Reaction (Verified 09/11/17 19:46) Rash doxycycline calcium [From Vibramycin] Adverse Reaction (Verified 09/11/17 19:46) constipation doxycycline hyclate [From Vibramycin] Adverse Reaction (Verified 09/11/17 19:46) constpation doxycycline monohydrate [From Vibramycin] Adverse Reaction (Verified 09/11/17 19:46) constipation hydrocodone bitartrate [From Vicodin] Adverse Reaction (Verified 09/11/17 19:46) constipation tetracycline [Tetracycline] Adverse Reaction (Verified 09/11/17 19:46) constipation Medications to take at Discharge Albuterol Inhaler [Ventolin Hfa] 1 puff INHALATION Q6H PRN PRN 08/26/13 Amlodipine [Norvasc] 5 mg PO DAILY 06/17/15 Atorvastatin Calcium [Lipitor] 20 mg PO QHS 06/17/15 Esomeprazole Mag Trihydrate [Nexium] 40 mg PO DAILY 06/17/15 Meloxicam [Mobic] 15 mg PO DAILY 06/17/15 Multivitamins,Therapeutic [Multivitamin] 1 tablet PO DAILY 06/17/15 Acetaminophen [Tylenol Extra Strength] 1,000 mg PO BID 09/12/17 Apixaban [Eliquis] 5 mg PO BID #68 tab 09/12/17 The following prescriptions were given: Apixaban [Eliquis] 5 mg PO BID #68 tab Primary Care Physician: Jeannette Mosqueda III, MD [Primary Care Provider] - Please follow up with your Primary Care Physician in: 1-2 weeks Proposed Discharge Date: 09/12/17 09/12/17 1421 <Electronically signed by Ozzie HDZ> Date Ozzie HDZ CC: Jeannette Mosqueda III, MD ECHOCARDIOGRAM COMPLETE Observed: 09/12/2017 Status: F Source: [place] 2:11 PM [facility] Cardiovascular Services [address] [place] [id number] Echo Complete 09/12/17 1020 MR#: [id number] Acct: [id number] Name: DINESH CAO Rep #: [id number] : 1960 57 From: Edy Redman MD Attending Dr: Korey Dunn Status: ADM GUNNAR Ordering Dr: Bubba Arroyo MD Date: 09/12/17 Location: [facility] Sex: M C Admitted: 09/12/17 Reason For Study: SYNCOPE Procedure This was a 2D Doppler, Color Flow transthoracic echocardiogram. Exam performed portable in patient room. Left Ventricle Normal LV size. Left ventricular systolic function is normal. The estimated ejection fraction is 65 %. No regional wall motion abnormalities noted. Right Ventricle Normal RV size. Normal systolic function. Atria Normal left atrium. Normal right atrium. Mitral Valve Normal mitral valve. Tricuspid Valve Normal tricuspid valve. Mild (1+) tricuspid valve insufficiency. Pulmonary artery systolic pressure is 43 mmHg. Mild pulmonary hypertension. Aortic Valve Normal aortic valve. Trisinus/trileaflet aortic valve. Pulmonic Valve Normal pulmonic valve. Great Vessels Normal aortic root. The pulmonary artery is normal size. Normal inferior vena cava. Pericardium/Pleural No pericardial effusion. MMode/2D Measurements AND Calculations LVIDd: 4.8 cm IVSd: 0.95 cm Ao root diam: 3.5 cm LVIDs: 3.3 cm LVPWd: 0.96 cm LA dimension: 3.7 cm RVDd: 4.6 cm FS: 31.0 % LAV(MOD-bp): 42.6 ml LA A4 area: 14.0 cm2 RA A4 area: 12.8 cm2 LAV(MOD-bp) Indexed: 18.6 ml/m2 LAV(MOD-sp2): 39.4 ml LAV(MOD-sp4): 36.1 ml Doppler Measurements AND Calculations MV E max zaida: 86.1 cm/sec Lat Peak E' Zaida: 9.6 cm/sec Med Peak E' Zaida: 10.3 cm/sec MV A max zaida: 74.7 cm/sec E/E' lat: 9.0 E/E' med: 8.3 MV E/A: 1.2 Ao V2 max: 156.0 cm/sec LV V1 max: 101.7 cm/sec PA V2 max: 125.8 cm/sec Ao max P.7 mmHg LV V1 max P.1 mmHg TR max zaida: 307.4 cm/sec TR max P.0 mmHg Interpretation Summary Normal LV size. Left ventricular systolic function is normal. The estimated ejection fraction is 65 %. Pulmonary artery systolic pressure is 43 mmHg. Mild pulmonary hypertension. Ordering Physician: Bubba Arroyo Referring Physician: JEANNETTE MOSQUEDA Performed By: Sanna Rojo, KALPESH, RVT 09/12/17 1410 Date Edy Redman MD CC: Jeannette Mosqueda III, MD; Bubba Arroyo MD Date Dictated: 09/12/17 1020 Date Transcribed: 09/12/17 1410 Digital Marketing Officer: Signed TROPONIN-I Collected: 09/12/2017 Status: F Source: [place] 10:20 AM [facility] REPOSITORY Order Comment: 'TROP' Serial specimen #1, #2, #3, or #4: 3 TYPE CODE TESTS RESULT OUT OF RANGE REFERENCE UNITS LAB L501.4010 <0.045 ng/mL Normal < 0.015 TROPONIN-I Result Comment: TROPONIN-I EXPECTED VALUES <0.045 NEGATIVE 0.045 - 0.590 AT RISK OF MT > OR = 0.600 SUGGEST MT PLEASE NOTE: REFERENCE RANGES EDITED 17 Performed By: #### L501.4010 #### [place] [facility] [address] [place], [address] BASIC METABOLIC Collected: 09/12/2017 Status: F Source: [place] PROFILE (BMP) 6:40 AM [facility] REPOSITORY Order Comment: 'TROP' Serial specimen #1, #2, #3, or #4: 2 TYPE CODE TESTS RESULT OUT OF RANGE REFERENCE UNITS LAB L501.0100 70-110 mg/dL Normal GLU 96 LAB L501.1000 7-18 mg/dL Low BUN 4 LAB L501.1100 0.70-1.30 mg/dL Normal 0.83 CREAT,SERUM Result Comment: The validity of the calculated GFR AND GFRAA in patients over 70 years has not been determined. Clinical correlation is essential. LAB L501.1110 >60 mL/min Normal EST GFR 101 Result Comment: Non- GFR Calc LAB L501.1115 >60 mL/min Normal EST GFR - AA 122 Result Comment: GFR Calc LAB L501.1255 ml/min Normal Estimated CRCL 103.32 LAB L501.1300 10-20 RATIO Low BUN/CRE 4.8 LAB L501.2200 8.5-10 mg/dL .1 CA Normal 8.5 LAB L501.5300 136-14 mmol/L 5 NA Normal 144 LAB L501.5600 3.5-5. mmol/L 1 K Normal 3.7 LAB L501.5900 98-107 mmol/L High CL 110 LAB L501.6100 21.0-3 mmol/L 2.0 CO2 Normal 29.0 LAB L501.6200 5-15 GAP Normal 5 Performed By: #### L500.2500, L500.4100, L501.4010 #### [facility] [address] [place], [place], [address] LIPID PROFILE Collected: 09/12/2017 Status: F Source: [place] 6:40 AM [facility] REPOS[facility]ORY Order Comment: 'TROP' Serial specimen #1, #2, #3, or #4: 2 TYPE CODE TESTS RESULT OUT OF RANGE REFERENCE UNITS LAB L501.4900 200 mg/dL Normal CHOL 127 Result Comment: <200 mg/dL Desirable 200-240 mg/dL Borderline >240 mg/dL High Risk LAB L501.5000 mg/dL Normal TRIG 98 Result Comment: The drugs N-Acetylcysteine and Metamizole may falsely depress this assay. Serum Triglycerides Reference Interval Normal <150 mg/dL Borderline high 150 - 199 mg/dL High 200 - 499 mg/dL Very High > or = 500 mg/dL LAB L501.6400 mg/dL Normal HDL 42 Result Comment: The drugs N-Acetylcysteine and Metamizole may falsely depress this assay. Reference Range HDL <40 mg/dL Low HDL Cholesterol HDL >or= 60 mg/dL High HDL Cholesterol LAB L501.6500 0-130 mg/dL Normal LDL 65 LAB L501.6600 5-40 mg/dL Normal VLDL 20 Performed By: #### L500.2500, L500.4100, L501.4010 #### [facility] [address] [place], [address] TROPONIN-I Collected: 09/12/2017 Status: F Source: [place] 6:40 AM [facility] Order Comment: 'TROP' Serial specimen #1, #2, #3, or #4: 2 TYPE CODE TESTS RESULT OUT OF RANGE REFERENCE UNITS LAB L501.4010 <0.045 ng/mL Normal < 0.015 TROPONIN-I Result Comment: TROPONIN-I EXPECTED VALUES <0.045 NEGATIVE 0.045 - 0.590 AT RISK OF MT > OR = 0.600 SUGGEST MT PLEASE NOTE: REFERENCE RANGES EDITED 17 Performed By: #### L500.2500, L500.4100, L501.4010 #### [facility] [address] [place], [address] TROPONIN-I Collected: 09/12/2017 Status: F Source: [place] 3:05 AM [facility] Order Comment: 'TROP' Serial specimen #1, #2, #3, or #4: 1 TYPE CODE TESTS RESULT OUT OF RANGE REFERENCE UNITS LAB L501.4010 <0.045 ng/mL Normal < 0.015 TROPONIN-I Result Comment: TROPONIN-I EXPECTED VALUES <0.045 NEGATIVE 0.045 - 0.590 AT RISK OF MT > OR = 0.600 SUGGEST MT PLEASE NOTE: REFERENCE RANGES EDITED 17 Performed By: #### L501.4010 #### [facility] [address] [place], [address] HISTORY AND PHYSICAL Observed: 09/12/2017 Status: F Source: [place] EXAM 1:44 AM [facility] Medical Records Department [address] [place] [address] History and Physical 09/12/17 0026 MR#: [id number] Acct: [id number] Name: DINESH CAO Rep #: [id number] : 1960 57 From: Bubba Arroyo MD PCP: Jeannette Mosqueda III, MD Status: REG ER Y Location: ED Problem List (1) Acute left lower lobe peripheral PE Status: Acute (2) Syncope and collapse Status: Acute (3) Partially treated aspiration pneumonia Status: Resolved (4) Benign essential hypertension Status: Chronic (5) GERD (gastroesophageal reflux disease) Status: Chronic (6) 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 This happened while the patient was watching basketball in [employer]. Nearby sports physician Dr. Longo assessed him and found bradycardia, heart rate 44/min, diaphoretic but he woke up with no postictal symptoms. In ER, he had EKG which shows normal sinus rhythm at 71 bpm orthostatic vital signs are negative. Prior to that he had ankle fracture in June 2017 for which he wears brace. He also has bronchitis for which he took 10 days of Augmentin PCP and just completed it but he still has cough. On further workup, chest CTA was done which showed single small pulmonary embolism and proximal peripheral branch of left lower lobe pulmonary artery. No infiltrate seen. No other pulmonary emboli. 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 (Chronic) GERD (gastroesophageal reflux disease) (Chronic) Allergies adhesive tape Adverse Reaction (Verified 09/11/17 19:46) Rash benzoin Adverse Reaction (Verified 09/11/17 19:46) Rash doxycycline calcium [From Vibramycin] Adverse Reaction (Verified 09/11/17 19:46) constipation doxycycline hyclate [From Vibramycin] Adverse Reaction (Verified 09/11/17 19:46) constpation doxycycline monohydrate [From Vibramycin] Adverse Reaction (Verified 09/11/17 19:46) constipation hydrocodone bitartrate [From Vicodin] Adverse Reaction (Verified 09/11/17 19:46) constipation tetracycline [Tetracycline] Adverse Reaction (Verified 09/11/17 19:46) constipation Home Medications: Ambulatory Orders Medication Instructions Recorded Albuterol Inhaler [Ventolin Hfa] 1 puff INHALATION Q6H PRN PRN 08/26/13 Amlodipine [Norvasc] 5 mg PO DAILY 06/17/15 Atorvastatin Calcium [Lipitor] 20 mg PO QHS 06/17/15 Surgical History: appendectomy, cholecystectomy, - - artificial veins in legs, sinus surgery Psychiatric History: No pertinent psych hx Smoking Status: Never smoker - *Family History Maternal History Items: - - htn Paternal History Items: - - poor veins, bad circulation Review of Systems Constitutional: Denies: Chills, Fever, Weight Change HEENT: Denies: Head Aches, Sinus Congestion, Sinus Drainage Cardiovascular: Reports: Syncope. Denies: Chest Pain, Palpitations Respiratory: Reports: Cough - Cough for more than 10 days's acute bronchitis. Denies: Shortness of Breath, Shortness of breath at rest, Sputum production Gastrointestinal: Denies: Abdominal Pain, Nausea, Vomiting Genitourinary: Denies: Dysuria Musculoskeletal: Denies: Joint Pain, Joint Tenderness Skin: Denies: Rash, Wounds Neurological: Denies: Numbness, Tingling, Focal weakness Psychiatric: Denies: Anxiety, Depression, Homicidal Ideations, Suicidal Ideations Hematologic/ Lymphatic: Denies: Easy Bruising, Easy Bleeding VTE Information - Inpt Only VTE Present on Admission: Yes VTE Mechan Device Prophylaxis: SCD's, None VTE Pharm Prophylaxis ordered?: Yes Patient Problems: Active and Suspected Problems Acute left lower lobe peripheral PE (Acute) Syncope and collapse (Acute) - Physical Exam General: Alert, Oriented x3, Cooperative HEENT: Atraumatic, PERRLA, EOMI, Normocephalic Neck: Supple, No JVD, Negative Carotid Bruits Lungs: Clear to auscultation, Normal air movement, No rhonchi, No wheeze, No rales Cardiovascular: Regular rate, Regular Rhythm, Normal S1, Normal S2, No murmurs Abdomen: Bowel Sounds Present, Soft, Non Tender, Non-Distended Extremities: No edema, Capillary Refill Less than 3 Seconds Skin: No rashes, No breakdown Musculoskeletal: No Tenderness to Palpation of Joints or Extremities Neurological: Cranial nerves II-XII grossly intact Psych/Mental Status: Normal Affect, Appropriate Vital Signs Temp Pulse Resp BP Pulse Ox 98.9 F 74 17 148/76 H 94 09/11/17 19:41 09/11/17 23:04 09/11/17 23:04 09/11/17 23:04 09/11/17 23:04 Oxygen Delivery Method Room Air Weight: 240 lb Body Mass Index (BMI) 33.5 Laboratory Tests Past 24 Hrs WBC 6.6 RBC 4.25 L Hgb 13.1 Hct 39.7 L MCV 93.4 MCH 30.8 MCHC 33.0 RDW 12.3 POC Glucose POC Glucose 89 Assessment/Plan Active and Suspected Problems Acute left lower lobe peripheral PE (Acute) Syncope and collapse (Acute) The patient is a 57 year old M with history of cough syncope in the past, hypertension, GERD, bilateral venous incompetence status post bilateral GS V removal was brought in by EMS after he passed out for about 4-5 minutes. This happened while the patient was watching basketball in [employer]. Nearby sports physician Dr. Longo assessed him and found bradycardia, heart rate 44/min, diaphoretic but he woke up with no postictal symptoms. In ER, he had EKG which shows normal sinus rhythm at 71 bpm orthostatic vital signs are negative. Prior to that he had ankle fracture in June 2017 for which he wears brace. He also has bronchitis for which he took 10 days of Augmentin PCP and just completed it but he still has cough. On further workup, chest CTA was done which showed single small pulmonary embolism and proximal peripheral branch of left lower lobe pulmonary artery. No infiltrate seen. No other pulmonary emboli. 1. Syncope most probably vasovagal: Patient is being admitted on the PCU. Cardiac monitoring. Serial cardiac enzymes. BNP ordered. 2D echo tomorrow morning. Last echo in November 2015 reported EF 60% with no regional wall motion abnormality. Patient has good exercise capacity. Patient follows Dr. Armstrong for history of syncope in the past and was told that she has cough syncope. 2. Acute left lower lobe pulmonary artery peripheral pulmonary embolism: I think this is a reversible cause as the patient had left ankle fracture and was in cast and was not moving in for 2-3 months. The patient received 1 dose of Lovenox 1 mg/kg body weight in ER. Switch to Eliquis 10 mg p.o. twice daily. 3. Other chronic comorbidities include hypertension, GERD and bilateral venous incompetence: Stable. Medication reconciliation done. DVT prophylaxis: Patient already on Lovenox. Code Visit Inpatient E AND M: 18070 Init Hosp L2 09/12/17 0144 <Electronically signed by Bubba Arroyo MD> Date Bubba Arroyo MD Cosigner Signature: Date (if applicable) CC: Jeannette Mosqueda III, MD; Bubba Arroyo MD Signed EMERGENCY DEPARTMENT Observed: 09/12/2017 Status: F Source: [place] SUMMARY 12:33 AM [facility] Medical Records Department [address] [place] [address] Emergency Department Summary 09/12/17 0031 MR#: [id number] Acct: [id number] Name: DINESH CAO Rep #: [id number] : 1960 57 From: Clem Solomon MD PCP: Jeannette Mosqueda III, MD Status: REG ER - ER Visit Summary Date of Service: 09/12/17 Chief Complaint: Syncope History of Present Illness: The patient is a 57 M who presents with syncope. He states he has had syncopal episodes previously but was associated with coughing. He was not coughing today. He was sitting in the stands at a basketball game when he began to feel lightheaded and then lost consciousness. A physician bystander had stated that he was unconscious for 3-4 minutes. He does note that he did not eat or drink much today. He also had a recent bronchitis about 10 days ago and recently completed antibiotics. He denies any chest pain or shortness of breath. Did have ankle surgery in late June. Physical Examination: Afebrile hypertensive on initial presentation which improved with observation. Moist mucous membranes Heart regular rate and rhythm Lungs clear Abdomen soft Extremities nontender Test Results: EKG shows normal sinus rhythm at a rate of 71. CBC BMP troponin unremarkable. With static vital signs negative. Chest x-ray shows no acute process. CTA of the chest does show a small left lower pulmonary embolism. Emergency Department Course and Treatment: I am concerned given the duration of the patient's syncope and the fact that it occurred while sitting. His pulmonary embolism is small but I do feel he needs cardiac monitoring and initiation of anticoagulation and repeat enzymes. He was given Lovenox here. He was discussed with hospitalist and admitted. Treatment Plan: [] Disposition: Admit Impression: Pulmonary embolism This note was generated with Watchfinder dictation software. It may contain incorrect words, spelling, and punctuation that were not noted in review of the chart prior to signing ED Disposition - Plan for ED Patient: Chief Complaint: Syncope Referrals: Jeannette Mosqueda III, MD [Primary Care Provider] - What to do if you have Problems For any increased pain, shortness of breath, bleeding, nausea or vomiting, chest pain, or any unexpected problems, contact your Primary Care Provider. Call [facility] ([phone]) or report to the closest Emergency Room. Call 911 if necessary. 09/12/17 0033 <Electronically signed by Clem Solomon MD> Date Clem Solomon MD Cosigner Signature (If Indicated): Date CC: Jeannette Mosqueda III, MD CTA CHEST W/WO Observed: 09/11/2017 Status: F Source: [place] CONTRAST 10:59 PM [facility] Imaging Services [address] [place] [address] CTA Chest W/WO Contrast MR#: [id number] Acct: [id number] Name: DINESH CAO Rep #: [id number] : 1960 M 57 From: Stephan Roca MD PCP: Jeannette Mosqueda III, MD Status: REG ER Study: CTA Chest W/WO Contrast Date of Exam: 09/11/17 Exam# [id number] Ordering Dr: Clem Solomon MD STUDY: CTA CHEST REASON FOR EXAM: Male, 57 years old. Syncope. Possible pulmonary embolism. RADIATION DOSAGE (If Supplied By Facility): CTDIvol = ( 18.11 ) mGy, DLP = ( 723.08 ) mGycm TECHNIQUE: The examination was performed with the intravenous administration of 100ML ml of Isovue 370 contrast material. Post-processing of the angiographic images was performed, with multiplanar reformation. Individualized dose optimization techniques were used for this CT. COMPARISON: 06/24/2015. FINDINGS: Normal enhancement of the main pulmonary artery and right and left pulmonary arteries. There is a small filling defects in the proximal branch of left lower lobe pulmonary artery best seen on axial image 120 series 2 and coronal image 181 series 601. There is otherwise no demonstrated pulmonary embolism. Normal thoracic aorta and visualized great vessels. There is no demonstrated aortic dissection. Normal heart and pericardium. Normal mediastinum. Normal hilar regions. Normal visualized trachea and bronchi. The lungs are well expanded. There are no pulmonary infiltrates. The previously noted patchy bilateral infiltrates have cleared. There is a small calcified granuloma in the right upper lobe. There is minimal stranding/scarring in the left lower lobe. There are no pleural effusions. Normal chest wall structures. There are degenerative changes of thoracic spine. The visualized portions of the upper abdomen demonstrate small hiatal hernia. The patient is status post cholecystectomy. CT/CTA Chest W/WO Contrast IMPRESSION: Single small filling defect consistent with small pulmonary embolism in a proximal peripheral branch of left lower lobe pulmonary artery. No other pulmonary emboli are seen. No infiltrate is seen. Small hiatal hernia. N.B. : The above information has been verbally conveyed by Stephan Roca MD to Clem Solomon MD, Covering Physician, on 09/12/2017 00:19:58 (ET). Electronically Signed: Stephan Roca MD at 0:01 EST Tel , Service support , N.B. : The above information has been verbally conveyed by Stephan Roca MD to Clem Solomon MD, Covering Physician, on 09/12/2017 00:19:58 (ET). CC: Jeannette Mosqueda III, MD; Clem Solomon MD Digital Marketing Officer: Signed CBC W/DIFF, AUTOMATED Collected: 09/11/2017 Status: F Source: [place] 8:22 PM [facility] [place] REPOSITORY TYPE CODE TESTS RESULT OUT OF RANGE REFERENCE UNITS LAB L100.1000 4.4-11.0 K/mm3 Normal WBC 6.6 LAB L100.1200 4.6-6.2 M/mm3 Low RBC 4.25 LAB L100.1300 13.0-16.5 g/dl Normal HGB 13.1 LAB L100.1400 40-54 % Low HCT 39.7 LAB L100.1500 80-94 fL Normal MCV 93.4 LAB L100.1600 27.0-32.0 pg Normal MCH 30.8 LAB L100.1700 32-36 g/gl Normal MCHC 33.0 LAB L100.1810 11.6-14.6 % Normal RDW CV 12.3 LAB L100.1820 35.1-43.9 fl Normal RDW SD 41.6 LAB L100.1900 150-450 K/mm3 Normal PLT 342 LAB L100.2000 6.2-12.0 fl Normal MPV 8.8 LAB L100.2100 47-70 % Normal NEUT% 60.3 LAB L100.2200 19-41 % Normal LY% 23.8 LAB L100.2300 0-10 % Normal MONO% 9.8 LAB L100.2400 0-5 % High EO% 5.3 LAB L100.2500 0-1 % Normal BASO% 0.6 LAB L100.2550 0.0-0.9 % Normal IM GRAN % 0.200 Result Comment: IG% - Immature Granulocytes (promyelocytes, myelocytes and metamyelocytes) > 1% indicates that a LEFT SHIFT is Present. LAB L100.2620 2.0-7.7 X10 3/uL Normal Absolute Neut 4.0 LAB L100.2720 0.83-4.51 X10 3/ul Normal Absolute Lymph 1.57 Performed By: #### L100.0100 #### [facility] [address]. [place], [place], [address] BASIC METABOLIC Collected: 09/11/2017 Status: F Source: [place] PROFILE (BMP) 8:22 PM [facility] REPOSITORY Order Comment: 'TROP' Serial specimen #1, #2, #3, or #4: 1 TYPE CODE TESTS RESULT OUT OF RANGE REFERENCE UNITS LAB L501.0100 70-110 mg/dL Normal GLU 109 LAB L501.1000 7-18 mg/dL Low BUN 4 LAB L501.1100 0.70-1.30 mg/dL Normal 0.92 CREAT,SERUM Result Comment: The validity of the calculated GFR AND GFRAA in patients over 70 years has not been determined. Clinical correlation is essential. LAB L501.1110 >60 mL/min Normal EST GFR 89 Result Comment: Non- GFR Calc LAB L501.1115 >60 mL/min Normal EST GFR - AA 108 Result Comment: GFR Calc LAB L501.1255 ml/min Normal Estimated CRCL 93.22 LAB L501.1300 10-20 RATIO Low BUN/CRE 4.3 LAB L501.2200 8.5-10 mg/dL Normal .1 CA 8.8 LAB L501.5300 136-14 mmol/L Normal 5 NA 143 LAB L501.5600 3.5-5. mmol/L Normal 1 K 3.6 LAB L501.5900 98-107 mmol/L Normal CL 106 LAB L501.6100 21.0-3 mmol/L Normal 2.0 CO2 30.0 LAB L501.6200 5-15 Normal GAP 7 Performed By: #### L500.2500, L501.4010 #### [facility] [address] [place], [place], [address] TROPONIN-I Collected: 09/11/2017 Status: F Source: [place] 8:22 PM [facility] REPOSITORY Order Comment: 'TROP' Serial specimen #1, #2, #3, or #4: 1 TYPE CODE TESTS RESULT OUT OF RANGE REFERENCE UNITS LAB L501.4010 <0.045 ng/mL Normal < 0.015 TROPONIN-I Result Comment: TROPONIN-I EXPECTED VALUES <0.045 NEGATIVE 0.045 - 0.590 AT RISK OF MT > OR = 0.600 SUGGEST MT PLEASE NOTE: REFERENCE RANGES EDITED 17 Performed By: #### L500.2500, L501.4010 #### [facility] [address] [place], [address] BNP,B-TYPE NATRIURETIC Collected: 09/11/2017 Status: F Source: [place] PEPTIDE 8:22 PM [facility] REPOSITORY TYPE CODE TESTS RESULT OUT OF RANGE REFERENCE UNITS LAB L503.6620 0-100 pg/mL Normal B-TYPE 4.8 ALEJANDRA PEP Performed By: #### L503.6620 #### [facility] [address] [place], [address] CHEST PA AND LATERAL Observed: 09/11/2017 Status: F Source: LIZETTE 8:13 PM [facility] REPOSITORY [facility] Imaging Services [address] [place] [address] Chest PA and Lateral MR#: [id number] Acct: [id number] Name: DINESH CAO Rep #: [id number] : 1960 M 57 From: Don Jose MD PCP: Jeannette Mosqueda III, MD Status: REG ER Study: Chest PA and Lateral Date of Exam: 09/11/17 Exam# [id number] Ordering Dr: Clem Solomon MD STUDY: X-RAY CHEST REASON FOR EXAM: Male, 57 years old. Syncopal episode TECHNIQUE: PA and lateral views of the chest. COMPARISON: June 12, 2016 FINDINGS: EKG leads project over the chest. The lungs are clear and expanded. There is no demonstrated pleural abnormality. Normal size heart. Normal mediastinum and philomena. Normal visualized pulmonary arteries. Normal visualized aortic arch and descending thoracic aorta. There are diffuse degenerative changes of the visualized thoracic spine. Normal visualized ribs, clavicles, and shoulders. Cholecystectomy surgical clips are present. RAD/Chest PA and Lateral IMPRESSION: Stable, nonacute x-ray examination of the chest. Electronically Signed: Don Jose MD at 21:15 EST , Service support , CC: Jeannette Mosqueda III, MD; Clem Solomon MD Digital Marketing Officer: Signed BEDSIDE GLUCOSE Collected: 09/11/2017 Status: F Source: DOU[place]AS 7:46 PM [facility] REPOSITORY TYPE CODE TESTS RESULT OUT OF RANGE REFERENCE UNITS LAB L501.080 70-110 mg/dL Normal BEDSIDE GLU 89 Result Comment: MANAGEMENT OF PATIENT CARE PER NURSING PROTOCOL Performed By: #### L501.080 #### [facility] Point of Care [address] [facility]. [place], [place] [address] PROGRESS Observed: 09/01/2017 Status: COMPLETED Source: [place] 12:55 PM [facility] REPOSITORY HNO ID: [id number] Author: Patricia Chavis Service: (none) Author Type: Nurse Practitioner Type: Progress Notes Filed: 09/01/2017 1:26 PM Note Text: HPI HPI Dinesh Cao is a 57 year old male who presents today for CC of cough, chest congestion This started 20 days. Has tried prednisone, inhalers. Symptoms are made relieved by nothing. Symptoms are worsened by nothing. Risk factors has asthma. Cough keeping awake at night. Review of Systems Constitutional: Positive for malaise/fatigue. Negative for chills, fever and weight loss. HENT: Positive for congestion. Negative for ear pain, nosebleeds and sore throat. Respiratory: Positive for cough. Negative for shortness of breath and wheezing. Musculoskeletal: Negative for neck pain. PAST MEDICAL HISTORY Diagnosis Date - Achilles tendinitis 02/10/2011 - Allergic rhinitis 02/27/2012 - Allergic rhinitis, cause unspecified - ASHD (arteriosclerotic heart disease) 09/13/2011 - Asthma 11/03/2014 - Cough syncope syndrome - Esophageal reflux Gastroesophageal reflux - Hiatal hernia 06/17/2015 [facility] - see scanned documents - Hyperlipidemia LDL goal < 100 01/21/2013 - Unspecified asthma(493.90) 2006 PAST SURGICAL HISTORY Procedure Laterality Date - APPENDECTOMY 1988 [facility] Colonoscopy - EGD W/O OR W/BRUSH/WASH 11/17/14 EGD - KNEE SCOPE,DIAGNOSTIC 08/31/2009 Arthroscopy, knee right [facility] - LAPAROSCOPIC CHOLEYCYSTECTOMY 1999 Cholecystectomy, lap - NASAL SEPTUM REPOS W STABILIZATION 06/2010 - PAST SURGICAL HISTORY OF ruptured valve on back of right knee - PAST SURGICAL HISTORY OF 08/31/09 repair of a torn mansicus - REVISE SECONDARY VARICOSITY 2003 Varicose Vein Surgery, BLE - VASECTOMY 1999 ALLERGIES Propofol (Pf); Vicodin [Hydrocodone-Acetaminophen]; Adhesive Tape (Rosins); Claritin [Loratadine]; Latex; Naprosyn [Naproxen]; Simvastatin; Tetracycline; Vibramycin [Doxycycline Calcium] MEDICATIONS aclidinium bromide (TUDORZA PRESSAIR) 400 mcg/actuation aepb inhaler Inhale 1 Puff as instructed once daily. Indications: CHRONIC OBSTRUCTIVE PULMONARY DISEASE WITH BRONCHOSPASMS guaiFENesin (MUCINEX) 600 mg 12 hr tablet Take 2 tablets by mouth twice daily. PROAIR HFA 90 mcg/actuation inhaler ipratropium bromide (ATROVENT) 0.06 % nasal spray Azelastine 0.15 % (205.5 mcg) spry amLODIPine (NORVASC) 5 mg tablet take 1 tablet by mouth once daily codeine-guaiFENesin (GUAIFENESIN AC) 10-100 mg/5 mL syrup Take 10 mL by mouth four times daily as needed. atorvastatin (LIPITOR) 20 mg tablet Take 1 tablet by mouth once daily. meloxicam (MOBIC) 7.5 mg tablet Take 1 tablet by mouth once daily. Take with food. albuterol sulfate (PROAIR RESPICLICK) 90 mcg/actuation aepb Inhale 2 Puffs as instructed every 4 hours as needed (wheezing). esomeprazole (NEXIUM) 40 mg capsule Take 1 capsule by mouth daily before breakfast. 1/2 hr before meal. albuterol 2.5 mg /3 mL (0.083 %) nebulizer solution Use 3 mL via nebulizer every 4 hours as needed for Wheezing/Shortness of Breath. Use over 5-15minutes. multivitamin ORAL tablet Take one(1) tablet daily. FAMILY HISTORY Problem Relation Age of Onset - Hypertension Mother - renal stones [Other] [OTHER] Father - Diabetes Son - GERD [Other] [OTHER] Brother Social History Substance Use Topics - Smoking status: Never Smoker - Smokeless tobacco: Never Used - Alcohol use No Blood pressure 122/60, pulse 61, temperature 36.1 ?C (96.9 ?F), temperature source Tympanic, resp. rate 18, weight 115.7 kg (255 lb), SpO2 100 %. Physical Exam Constitutional: He is oriented to person, place, and time and well-developed, well-nourished, and in no distress. Non-toxic appearance. He does not have a sickly appearance. No distress. HENT: Head: Normocephalic and atraumatic. Right Ear: Hearing, tympanic membrane, external ear and ear canal normal. Left Ear: Hearing, tympanic membrane, external ear and ear canal normal. Nose: Nose normal. Mouth/Throat: Uvula is midline, oropharynx is clear and moist and mucous membranes are normal. Eyes: Conjunctivae and lids are normal. Pupils are equal, round, and reactive to light. Right eye exhibits no discharge. Left eye exhibits no discharge. No scleral icterus. Neck: Trachea normal and normal range of motion. Neck supple. Cardiovascular: Normal rate, regular rhythm and normal heart sounds. Pulmonary/Chest: Effort normal and breath sounds normal. Loose cough during exam Lymphadenopathy: He has no cervical adenopathy. Neurological: He is alert and oriented to person, place, and time. Skin: No rash noted. He is not diaphoretic. ASSESSMENT/PLAN: 1. Sinobronchitis - ICD9: 473.9, 490, ICD10: J32.9, J40 - Will begin treatment with Augmentin 875 mg PO BID for 10 days - Supportive care with plenty of fluids, rest, and analgesia prn. - Follow up in 3-5 days if symptoms persist or worsen. -if chest pain/shortness of breath, go to ER - AMOXICILLIN 875 MG-POTASSIUM CLAVULANATE 125 MG TABLET - [id number]-[id number] 2 MG-30 MG-10 MG/5 ML SYRUP Prescription instructions reviewed with patient as applicable. Patient advised if symptoms do not improve or if symptoms worsen sooner, to contact the office for further evaluation by their primary care physician. Potential red flag symptoms discussed with the patient. Reviewed appropriate action plan to take if red flag symptoms occur. Patient agreeable to treatment plan. Patricia Chavis CNP CNOV Observed: 09/01/2017 Status: COMPLETED Source: [place]UMELLE 11:45 AM [facility] REPOSITORY Office Visit (WSTR) DINESH CAO ([id number]) 1960 M Date Time Provider Department 09/01/17 11:45 AM PATRICIA CHAVIS (YEYO) [facility] During your visit today, we recorded the following information about you: Temperature Pulse Respiration Blood pressure 96.9 degrees 61/minute 18/minute 122/60 Weight 115.7 kg Patricia Chavis CNP 09/01/2017 1:26 PM Signed HPI HPI Dinesh Cao is a 57 year old male who presents today for CC of cough, chest congestion This started 20 days. Has tried prednisone, inhalers. Symptoms are made relieved by nothing. Symptoms are worsened by nothing. Risk factors has asthma. Cough keeping awake at night. Review of Systems Constitutional: Positive for malaise/fatigue. Negative for chills, fever and weight loss. HENT: Positive for congestion. Negative for ear pain, nosebleeds and sore throat. Respiratory: Positive for cough. Negative for shortness of breath and wheezing. Musculoskeletal: Negative for neck pain. PAST MEDICAL HISTORY Diagnosis Date - Achilles tendinitis 02/10/2011 - Allergic rhinitis 02/27/2012 - Allergic rhinitis, cause unspecified - ASHD (arteriosclerotic heart disease) 09/13/2011 - Asthma 11/03/2014 - Cough syncope syndrome - Esophageal reflux Gastroesophageal reflux - Hiatal hernia 06/17/2015 [facility] - see scanned documents - Hyperlipidemia LDL goal ANDlt; 100 01/21/2013 - Unspecified asthma(493.90) 2006 PAST SURGICAL HISTORY Procedure Laterality Date - APPENDECTOMY 1988 - COLONOSCOP W/ OR W/O [facility] SPEC 11/17/14 Colonoscopy - EGD W/O OR W/BRUSH/WASH 11/17/14 EGD - KNEE SCOPE,DIAGNOSTIC 08/31/2009 Arthroscopy, knee right [facility] - LAPAROSCOPIC CHOLEYCYSTECTOMY 1999 Cholecystectomy, lap - NASAL SEPTUM REPOS W STABILIZATION 06/2010 - PAST SURGICAL HISTORY OF ruptured valve on back of right knee - PAST SURGICAL HISTORY OF 08/31/09 repair of a torn mansicus - REVISE SECONDARY VARICOSITY 2003 Varicose Vein Surgery, BLE - VASECTOMY 1999 ALLERGIES Propofol (Pf); Vicodin [Hydrocodone-Acetaminophen]; Adhesive Tape (Rosins); Claritin [Loratadine]; Latex; Naprosyn [Naproxen]; Simvastatin; Tetracycline; Vibramycin [Doxycycline Calcium] MEDICATIONS aclidinium bromide (TUDORZA PRESSAIR) 400 mcg/actuation aepb inhaler Inhale 1 Puff as instructed once daily. Indications: CHRONIC OBSTRUCTIVE PULMONARY DISEASE WITH BRONCHOSPASMS guaiFENesin (MUCINEX) 600 mg 12 hr tablet Take 2 tablets by mouth twice daily. PROAIR HFA 90 mcg/actuation inhaler ipratropium bromide (ATROVENT) 0.06 % nasal spray Azelastine 0.15 % (205.5 mcg) spry amLODIPine (NORVASC) 5 mg tablet take 1 tablet by mouth once daily codeine-guaiFENesin (GUAIFENESIN AC) 10-100 mg/5 mL syrup Take 10 mL by mouth four times daily as needed. atorvastatin (LIPITOR) 20 mg tablet Take 1 tablet by mouth once daily. meloxicam (MOBIC) 7.5 mg tablet Take 1 tablet by mouth once daily. Take with food. albuterol sulfate (PROAIR RESPICLICK) 90 mcg/actuation aepb Inhale 2 Puffs as instructed every 4 hours as needed (wheezing). esomeprazole (NEXIUM) 40 mg capsule Take 1 capsule by mouth daily before breakfast. 1/2 hr before meal. albuterol 2.5 mg /3 mL (0.083 %) nebulizer solution Use 3 mL via nebulizer every 4 hours as needed for Wheezing/Shortness of Breath. Use over 5-15minutes. multivitamin ORAL tablet Take one(1) tablet daily. FAMILY HISTORY Problem Relation Age of Onset - Hypertension Mother - renal stones [Other] [OTHER] Father - Diabetes Son - GERD [Other] [OTHER] Brother Social History Substance Use Topics - Smoking status: Never Smoker - Smokeless tobacco: Never Used - Alcohol use No Blood pressure 122/60, pulse 61, temperature 36.1 ?C (96.9 ?F), temperature source Tympanic, resp. rate 18, weight 115.7 kg (255 lb), SpO2 100 %. Physical Exam Constitutional: He is oriented to person, place, and time and well-developed, well-nourished, and in no distress. Non-toxic appearance. He does not have a sickly appearance. No distress. HENT: Head: Normocephalic and atraumatic. Right Ear: Hearing, tympanic membrane, external ear and ear canal normal. Left Ear: Hearing, tympanic membrane, external ear and ear canal normal. Nose: Nose normal. Mouth/Throat: Uvula is midline, oropharynx is clear and moist and mucous membranes are normal. Eyes: Conjunctivae and lids are normal. Pupils are equal, round, and reactive to light. Right eye exhibits no discharge. Left eye exhibits no discharge. No scleral icterus. Neck: Trachea normal and normal range of motion. Neck supple. Cardiovascular: Normal rate, regular rhythm and normal heart sounds. Pulmonary/Chest: Effort normal and breath sounds normal. Loose cough during exam Lymphadenopathy: He has no cervical adenopathy. Neurological: He is alert and oriented to person, place, and time. Skin: No rash noted. He is not diaphoretic. ASSESSMENT/PLAN: 1. Sinobronchitis - ICD9: 473.9, 490, ICD10: J32.9, J40 - Will begin treatment with Augmentin 875 mg PO BID for 10 days - Supportive care with plenty of fluids, rest, and analgesia prn. - Follow up in 3-5 days if symptoms persist or worsen. -if chest pain/shortness of breath, go to ER - AMOXICILLIN 875 MG-POTASSIUM CLAVULANATE 125 MG TABLET - [id number] 2 MG-30 MG-10 MG/5 ML SYRUP Prescription instructions reviewed with patient as applicable. Patient advised if symptoms do not improve or if symptoms worsen sooner, to contact the office for further evaluation by their primary care physician. Potential red flag symptoms discussed with the patient. Reviewed appropriate action plan to take if red flag symptoms occur. Patient agreeable to treatment plan. YEYO Dennis CNP 09/01/2017 1:06 PM Signed ASSESSMENT/PLAN: 1. Sinobronchitis - ICD9: 473.9, 490, ICD10: J32.9, J40 - Will begin treatment with Augmentin 875 mg PO BID for 10 days - Supportive care with plenty of fluids, rest, and analgesia prn. - Follow up in 3-5 days if symptoms persist or worsen. - AMOXICILLIN 875 MG-POTASSIUM CLAVULANATE 125 MG TABLET - [id number] 2 MG-30 MG-10 MG/5 ML SYRUP Referring Provider: SELF [200] Allergies As of Date: 09/01/2017 Noted Allergy Reaction PROPOFOL (PF) 11/17/2014 14 - Other: See Comments Comments: Did'nt wake up VICODIN (HYDROCODONE-ACETAMINOPHE*02/10/2011 14 - Other: See Comments Comments: Constipation, extreme sleepiness ADHESIVE TAPE (ROSINS) 10/28/2009 CLARITIN (LORATADINE) 12/15/2008 5 - Intolerance Comments: did not help with s/s LATEX 09/26/2012 9 - Itching NAPROSYN (NAPROXEN) 11/26/2005 8 - GI Upset SIMVASTATIN 01/13/2013 14 - Other: See Comments Comments: leg muscle cramping TETRACYCLINE 11/26/2005 8 - GI Upset VIBRAMYCIN (DOXYCYCLINE CALCIUM) 11/26/2005 8 - GI Upset Date Reviewed: 09/01/2017 Reviewed by: Patricia Chavis - Fully Assessed Reason for Visit: Cough [28] Cmt: with congestion x 2 weeks Primary Visit Diagnosis:Sinobronchitis [J32.9, J40] Order(s):amoxicillin-clavulanic acid (AUGMENTIN) 875-125 mg per tabletTake 1 tablet by mouth twice daily for 10 days.Disp: 20 tabletRfl: 0 Pkmqhmwypwnmjgg-Yyrxnpisz-VG (BROMFED DM) 2-30-10 mg/5 mL syrupTake 5 mL by mouth four times daily as needed.Disp: 120 mLRfl: 0 Prescriptions as of 09/01/2017 Sig: ACLIDINIUM BROMIDE 400 MCG/AC* Inhale 1 Puff as instructed o* GUAIFENESIN ER 600 MG TABLET,* Take 2 tablets by mouth twice* PROAIR HFA 90 MCG/ACTUATION A* IPRATROPIUM BROMIDE 42 MCG (0* AZELASTINE 0.15 % (205.5 MCG)* AMLODIPINE 5 MG TABLET take 1 tablet by mouth once d* CODEINE 10 MG-GUAIFENESIN 100* Take 10 mL by mouth four time* ATORVASTATIN 20 MG TABLET Take 1 tablet by mouth once d* MELOXICAM 7.5 MG TABLET Take 1 tablet by mouth once d* ALBUTEROL SULFATE 90 MCG/ACTU* Inhale 2 Puffs as instructed * ESOMEPRAZOLE MAGNESIUM 40 MG * Take 1 capsule by mouth daily* ALBUTEROL SULFATE 2.5 MG/3 ML* Use 3 mL via nebulizer every * * MULTIVITAMIN TABLET Take one(1) tablet daily. AMOXICILLIN 875 MG-POTASSIUM * Take 1 tablet by mouth twice * BROMPHENIRAMINE-PSEUDOEPHEDRI* Take 5 mL by mouth four times* Medication notes this encounter GUAIFENESIN ER 600 MG TABLET, EXTENDED RELEASE 12 HR >> Bita Bartlett LPN 09/01/2017 12:46 PM >> BITA BARTLETT LPN SatSep 01, 2017 12:46 PM Not taking Problem List As Of Date 09/01/2017 Noted Resolved ASTHMA UNSPECIFIED [J45.909] INVALID FOR*10/04/2014 ESOPHAGEAL REFLUX [K21.9] INVALID FOR* Essential Hypertension, Benign [I10] INVALID FOR* Achilles tendinitis [M76.60] INVALID FOR*10/04/2014 ASHD (arteriosclerotic heart disease) [I25.10] INVALID FOR* Allergic rhinitis [J30.9] INVALID FOR* Hyperlipidemia with target LDL less than 100 [E*INVALID FOR* 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 Sinobronchitis - ICD9: 473.9, 490, ICD10: J32.9, J40 - Will begin treatment with Augmentin 875 mg PO BID for 10 days - Supportive care with plenty of fluids, rest, and analgesia prn. - Follow up in 3-5 days if symptoms persist or worsen. - AMOXICILLIN 875 MG-POTASSIUM CLAVULANATE 125 MG TABLET - [id number]-[id number] 2 MG-30 MG-10 MG/5 ML SYRUP Prescriptions ordered this encounter Disp Refills Start End AMOXICILLIN 875 MG-POTASSIUM CLAVULA* 20 t* 0 09/01/2017 09/11/2017 Route: ORAL Sig: Take 1 tablet by mouth twice daily for 10 days. HOLBFECHXFVGDPT-EMBDFRCYUFLQNQL-SK 2* 120 * 0 09/01/2017 Route: ORAL Sig: Take 5 mL by mouth four times daily as needed. Encounter Status:Closed by PATRICIA CHAVIS CNP on 09/01/17 ALLERGIES ALLERGIES DATE TYPE / NAME / CODE REACTION SEVERITY SOURCE CODE 07/31/2018 Drug hydrocodone CONSTIPATION Unknown [place] Allergy/41 bitartrate/[id number] Replaced By [facility] [id number]( [facility]) Repository 07/31/2018 Drug doxycycline CONSTIPATION Unknown [place] Allergy/41 calcium/[id number] Replaced By [facility] [id number]([facility]) Repository 07/31/2018 Drug doxycycline constpation Unknown [place] Allergy/41 hyclate/[id number] Replaced By [facility] [phone]([facility]) Repository 07/31/2018 Drug doxycycline CONSTIPATION Unknown [place] Allergy/41 monohydrate/[id number] Replaced By [facility] [phone]( [facility]) Repository 07/31/2018 Drug benzoin/[id number] Rash Unknown [place] Allergy/41 (RXNORM) Replaced By [facility] [phone]([facility]) Repository 07/31/2018 Drug tetracycline/F0060 CONSTIPATION Unknown [place] Allergy/41 76071(RXNORM) Replaced By [facility] [id number]([facility]) Repository 07/31/2018 Drug adhesive Rash Unknown [place] Allergy/41 tape/[id number](RX [facility] [id number](SN NORM) [facility] OMED [facility]) Repository 07/31/2018 Drug soap/[id number](RX Hives [place] Allergy/41 NORM) Community [id number]([facility] OME CT) Repository 07/31/2018 Drug povidone-iodine/F0 Hives SV [place] Allergy/41 [id number](RXNORM) Community [id number]([facility] OME [facility]) Repository 11/17/2014 DRUG/71366 PROPOFOL (PF) OTHER: SEE C [facility] 1003([facility] Main D [facility]) [place] Repository 01/13/2013 DRUG SIMVASTATIN OTHER: SEE C [address] Main [id number]([facility] OMED CT) Repository 09/26/2012 DRUG LATEX ITCHING [address] Main [id number]([facility] OMED CT) Repository 02/10/2011 DRUG/67613 HYDROCODONE-ACETAM OTHER: SEE C [facility] 1003([facility] INOPHEN [facility] Main D CT) [place] Repository 10/28/2009 Chemical/4 ADHESIVE TAPE [place] [phone](S (ROSINS) [facility] Main NOMED CT) [place] Repository 12/15/2008 [facility] [address] [facility] [id number]([facility] O[address] [facility]) Repository 11/26/2005 DRUG NAPROXEN GI UPSET [facility] Main [id number]([facility] OMED CT) Repository 11/26/2005 DRUG [facility]CLINE [facility] [id number]([facility] OMED CT) Repository 11/26/2005 DRUG DOXYCYCLINE GI UPSET [place] [address] CALCIUM Clinic Main [id number]([facility] OMED CT) Repository ENCOUNTERS ENCOUNTERS ADMIT/DISCHARGE ACCOUNT NUMBER ADMITTING ENCOUNTER LOCATION SOURCE CLASS 08/19/2018/08/19/20 [id number] Ambulatory [address] Main [place] Repository 08/15/2018/08/16/20 [id number] Ambulatory [address] Main [place] Repository 08/01/2018 [id number] Inpatient [address]in[address] [place] [address] Encounter 6WRoom: System [id number]: Repository [id number] 07/31/2018/07/31/20 [id number] Emergency Lizette Lizette 18 [facility] ding:ED Repository 07/21/2018/07/21/20 [id number] Ambulatory BMSBuilding: Lizette 18 BMS.[facility] Repository 07/01/2018/07/02/20 [id number] Ambulatory [address] Repository 05/29/2018/05/29/20 [id number] Ambulatory [address] Repository 05/29/2018/05/29/20 [id number] Ambulatory [address] Repository 05/29/2018/05/30/20 [id number] Ambulatory [address] Repository 05/14/2018/05/14/20 [id number] Ambulatory BMSBuilding: Lizette 18 BMS.[facility] Repository 05/09/2018/05/12/20 [id number] Ambulatory [address] Repository 05/05/2018/05/05/20 [id number] Ambulatory [address] Repository 05/05/2018/05/07/20 [id number] Ambulatory [address] Repository 04/07/2018 [id number] Ambulatory BMSBuilding: Lizette BMS.[facility] Repository 04/04/2018/04/07/20 [id number] Ambulatory [address] Repository 03/25/2018/03/26/20 [id number] Ambulatory [address] Repository 03/17/2018 [id number] Ambulatory [facility] Repository 03/14/2018/03/14/20 [id number] Ambulatory BMSBuilding: Lizette 18 BMS.[facility] Repository 02/26/2018/02/28/20 [id number] Ambulatory [address] Repository 02/24/2018/02/25/20 [id number] Ambulatory BMSBuilding: Lizette 18 BMS.[facility] Repository 02/20/2018/02/21/20 [id number] Ambulatory [address] Repository 02/19/2018 [id number] Ambulatory [facility] Repository 01/29/2018 [id number] Ambulatory [place] [facility] ding:PAVLAB Repository 01/29/2018/01/30/20 [id number] Ambulatory BMSBuilding: Lizette 18 BMS.[facility] Repository 01/22/2018 [id number] Ambulatory BMSBuilding: Lizette BMS.[facility] Repository 01/16/2018/01/18/20 [id number] Ambulatory [address] Repository 12/11/2017 [id number] Ambulatory BMSBuilding: [place] [facility] Repository 12/10/2017 [id number] Ambulatory [facility] ding:PSN Repository 11/29/2017/11/30/19 [id number] Ambulatory BMSBuilding: Lizette 18 BMS.[facility] Repository 11/20/2017/11/22/19 [id number] Ambulatory [address] Repository 11/15/2017 [id number] Ambulatory [facility] ding:[place] Repository 11/06/2017/11/07/19 [id number] Ambulatory BMSBuilding: [place] 18 BMS.[facility] Repository 11/05/[id number] [facility] Repository 10/21/2017/10/21/19 [id number] Ambulatory [address] Repository 09/27/2017/09/27/19 [id number] Ambulatory BMSBuilding: Lizette 18 BMS.[facility] Repository 09/26/2017 [id number] Ambulatory BMSBuilding: Lizette BMS.[facility] Repository 09/25/2017 [id number] Ambulatory BMSBuilding: Lizette BMS.[facility] Repository 09/23/2017/09/23/19 [id number] Ambulatory [address] Repository 09/23/2017/09/25/19 [id number] Ambulatory [address] Repository 09/12/2017 [id number] Ambulatory BMSBuilding: Lizette BMS.[facility] Repository 09/12/2017/09/12/19 [id number] [place], Ambulatory Lizette Lizette 18 [facility] ding:PCURoom Repository : JIV534Xbs: 1 09/12/2017/09/12/19 [id number] Ambulatory BMSBuilding: Lizette 18 BMS.CF.[facility] Repository 09/12/2017/09/12/19 [id number] Ambulatory BMSBuilding: [place] 18 [facility] Repository 09/01/2017/09/01/20 [id number] Ambulatory [address] Repository PAYERS PAYERS ENCOUNTER GUARANTOR PAYER SUBSCRIBER SOURCE 08/01/2018 Dinesh Rojo [facility]: Insurance:AetnaPolkiahy GiacomotDOB: System Number: Effective [id number] Repository Doris Young, Date: [place] [address]Jlx: () 07/31/2018 DINESH Rojo FAITH Shah Lizette [id number] Insurance:AETNAPolicy MARYTDOB: Replaced By [facility] DORIS YOUNG, Number: [id number] Hospital of [facility] [place] [address]Rsq: [id number] Repository Date:3165-20-04XP [address] () [address], [place] [address]RT: 07/31/2018 Secondary NOT GIVENUNK Lizette Insurance:SELF PAY [facility] Number: Effective Repository Date:2018-07-31 07/21/2018 DINESH Vivek Shah Lizette [id number] Insurance:AETNAPolicy EngbarryhardtDOB: Replaced By [facility] DORIS YOUNG, Number: [id number] Hospital of [facility] [place] [address]Akx: [id number] Repository Date:6544-28-80BA [address] () [address], [place] [address]MQ: 07/21/2018 Secondary NOT GIVENUNK [place] Insurance:SELF PAY [facility] Number: Effective Repository Date:2018-07-18 05/14/2018 DINESH Shah Lizette [id number] Insurance:AETNAPolicy EngelhardtDOB: Replaced By [facility] DORIS YOUNG, Number: [id number] Hospital of [facility] [place] [address]Kyp: [id number] Repository Date:5878-69-02AC [address] () [id number] KIANANRAMO [place] [address]XQ: 05/14/2018 Secondary NOT GIVENUNK [place] Insurance:SELF PAY [facility] Number: Effective Repository Date:2018-05-06 04/07/2018 DINESH J Primary Faith L [place] [id number] Insurance:AETNAPolicy EngelhardtDOB: Replaced By [facility] DORIS YOUNG, Number: [id number] Hospital of [facility] [place] [address]Xpv: [id number] Repository Date:2330-74-48RN [address] () [address] [address]OW: 04/07/2018 Secondary NOT GIVENUNK [place] Insurance:SELF PAY [facility] Number: Effective Repository Date:2018-03-03 03/17/[address] [facility] EngelhardtDOB: Insurance:AetnaPolicy EngelhardtDOB: System Number: Effective [id number] Repository Doris Young, Date: [place] [address]Sqq: () 03/14/2018 DINESH J Primary Faith L Lizette [id number] Insurance:AETNAPolicy EngelhardtDOB: Replaced By [facility] DORIS YOUNG, Number: [id number] Hospital of [facility] [place] [address]Rdr: [id number] Repository Date:6664-67-37VO [address] () [id number] [address]NM: 03/14/2018 Secondary NOT GIVENUNK Lizette Insurance:SELF PAY [facility] Number: Effective Repository Date:2018-03-14 02/24/2018 DINESH J Primary Faith L [place] [id number] Insurance:AETNAPolicy EngelhardtDOB: [facility] Health[facility], Number: [id number] Hospital of [facility] [place] [address]Xlr: [id number] Repository Date:6696-56-76VA BOX (HP) [address]67[address]LF RAMO BALLESTEROS [address]CF: 02/24/2018 Secondary NOT GIVENUNK Liz[place] Insurance:SELF PAY [facility] Number: Effective Repository Date:2018-02-18 02/19/2018 [facility]h [facility] EngelhardtDOB: Insurance:AetnaPolicy EngelhardtDOB: System Number: Effective [id number] Repository Doris Young, Date: [place] [address]Tkp: (AF) 02/19/2018 Secondary [facility] Insurance:AetnaPolicy EngelhardtDOB: System Number: Effective [id number] Repository Date: 01/29/2018 DINESH J Primary Faith L Lizette [id number] Insurance:AETNAPolicy EngelhardtDOB: Community DORIS YOUNG, Number: [id number] Hospital of [facility] [place] [address]Tdu: [id number] Repository [phone] Date:7982-33-10LV [address] (HP) 081378FJ RAMO BALLESTEROS [address]TL: 01/29/2018 Secondary NOT GIVENUNK [place] Insurance:SELF PAY [facility] Number: Effective Repository Date:2018-01-29 01/29/2018 DINESH J Primary Faith L [place] [id number] Insurance:AETNAPolicy EngelhardtDOB: Community DORIS YOUNG, Number: [id number] Hospital of [facility] [place] [address]Sfz: [id number] Repository [phone] Date:1868-47-49TZ [address] -[address] (HP) 624818LY RAMO BALLESTEROS [address]ZC: 01/29/2018 Secondary NOT GIVENUNK Lizette Insurance:SELF PAY [facility] Number: Effective Repository Date:2018-01-28 01/22/2018 DINESH J Primary DINESH Vivek Lziette [id number] Insurance:ANTHEMPolic ENGELHARDTDOB: Replaced By [facility] DORIS YOUNG, y Number: [id number] Hospital of Southern [place] [address]Jtn: [id number] Repository [phone] Date:2667-70-42BZ [address] () [place], [place] [address]MB: 01/22/2018 Secondary NOT GIVENUNK [place] Insurance:SELF PAY [facility] Number: Effective Repository Date:2018-01-20 12/11/2017 DINESH Doyle Primary Faith Shah Lizette [id number] Insurance:AETNAPolicy EngelhardtDOB: Replaced By [facility] DORIS YOUNG, Number: [id number] Hospital of [facility] [place] [address]Lbh: [id number] Repository [phone] Date:9114-71-96IO [address] -[address] () 467157QX RAMO BALLESTEROS [address]BT: 12/11/2017 Secondary NOT GIVENUNK Lizette Insurance:SELF PAY [facility] Number: Effective Repository Date:2017-12-11 12/10/2017 DINESH Doyle Primary Faith L Lizette [id number] Insurance:AETNAPolicy EngelhardtDOB: Replaced By [facility] DORIS YOUNG, Number: [id number] Hospital of [facility] [place] [address]Dqe: [id number] Repository [phone] Date:9707-69-86QK [address] -[address] () [id number] RAMO BALLESTEROS [address]GM: 12/10/2017 Secondary NOT GIVENUNK [place] Insurance:SELF PAY [facility] Number: Effective Repository Date:2017-11-06 11/29/2017 DINESH J Primary DINESH Vivek JamesLizette [id number] Insurance:ANTHEMPolic ENGELHARDTDOB: Community DORIS YOUNG, y Number: [id number] Hospital of [facility] [place] [address]Ukb: [id number] Repository [phone] Date:9751-29-41XH [address] () [id number] [place] [address]XH: 11/29/2017 Secondary NOT GIVENUNK Lizette Insurance:SELF PAY [facility] Number: Effective Repository Date:2017-08-12 11/15/2017 DINESH J Primary DINESH J Liz[place] [id number] Insurance:ANTHEMPolic ENGELHARDTDOB: Replaced By [facility] DORIS YOUNG, y Number: [id number] Hospital of [facility] [place] [address]Gwb: [id number] Repository [phone] Date:5930-15-60HW [address] () [id number] [place] [address]ML: 11/15/2017 Secondary NOT GIVENUNK [place] Insurance:SELF PAY [facility] Number: Effective Repository Date:2017-11-06 11/06/2017 DINESH J Primary DINESH J [place] [id number] Insurance:ANTHEMPolic ENGELHARDTDOB: Community DORIS YOUNG, y Number: [id number] Hospital of [facility] [place] [address]Mcv: [id number] Repository [phone] Date:9873-08-87CI [address] () [id number] [place] [address]UR: 11/06/2017 Secondary NOT GIVENUNK [place] Insurance:SELF PAY [facility] Number: Effective Repository Date:2017-11-05 11/05/2017 DINESH J Primary DINESH J Lizette [id number] Insurance:ANTHEMPolic ENGELHARDTDOB: Community DORIS YOUNG, y Number: [id number] Hospital of Southern [place] [address]Zar: [id number] Repository [phone] Date:5040-17-36LA [address] -[address] () [id number] [place] [address]TI: 11/05/2017 Secondary NOT GIVENUNK [place] Insurance:SELF PAY [facility] Number: Effective Repository Date:2017-11-05 09/27/2017 DINESH J Primary DINESH J [place] [id number] Insurance:ANTHEMPolic ENGELHARDTDOB: Replaced By [facility] DORIS YOUNG, y Number: [id number] Hospital of [facility] [place] [address]Qvt: [id number] Repository [phone] Date:7852-51-65TU [address] -[address] () [place], [place] [address]JL: 09/27/2017 Secondary NOT GIVENUNK [place] Insurance:SELF PAY [facility] Number: Effective Repository Date:2017-09-25 09/26/2017 DINESH J Primary DINESH J [place] [id number] Insurance:ANTHEMPolic ENGELHARDTDOB: Replaced By [facility] DORIS YOUNG, y Number: [id number] Hospital of [facility] [place] [address]Bbo: [id number] Repository [phone] Date:0053-00-22BJ [address] -[address] () [id number], [place] [address]KJ: 09/26/2017 Secondary NOT GIVENUNK [place] Insurance:SELF PAY [facility] Number: Effective Repository Date:2017-09-25 09/25/2017 DINESH J Primary DINESH J Lizette [id number] Insurance:ANTHEMPolic ENGELHARDTDOB: Replaced By [facility] DORIS YOUNG, y Number: [id number] Hospital of Southern [place] [address]Dyy: [id number] Repository [phone] Date:1682-72-13KM [address] -[address] ) [place]CC[place], [place] [address]OW: 09/25/2017 Secondary NOT GIVENUNK Liz[place] Insurance:SELF PAY [facility] Number: Effective Repository Date:2017-09-25 09/12/2017 DINESH J Primary DINESH J Liz[place] [id number] Insurance:ANTHEMPolic ENGELHARDTDOB: Community DORIS YOUNG, y Number: [id number] [place] [address]Wjn: [id number] Repository [phone] Date:5813-84-47DJ [address] -[address] () [id number] [place] [address]LX: 09/12/2017 Secondary NOT GIVENUNK Liz[place] Insurance:SELF PAY [facility] Number: Effective Repository Date:2017-09-12 09/12/2017 DINESH J Primary DINESH J Liz[place] [id number] Insurance:ANTHEMPolic ENGELHARDTDOB: Replaced By [facility] DORIS YOUNG, y Number: [id number] Hospital of [facility] [place] [address]Www: [id number] Repository [phone] Date:0972-34-47IV [address] -[address] () [id number] [place] [address]PZ: 09/12/2017 Secondary NOT GIVENUNK [place] Insurance:SELF PAY [facility] Number: Effective Repository Date:2017-09-11 09/12/2017 DINESH J Primary DINESH J [place] [id number] Insurance:ANTHEMPolic ENGELHARDTDOB: Community DORIS YOUNG, y Number: [id number] Hospital of [facility] [place] [address]Ozq: [id number] Repository [phone] Date:4781-33-51BT [address] -[address] () [id number] [place] [address]KL: 09/12/2017 Secondary NOT GIVENUNK Liz[place] Insurance:SELF PAY [facility] Number: Effective Repository Date:2017-09-12 09/12/2017 DINESH J Primary DINESH J [place] [id number] Insurance:ANTHEMPolic ENGELHARDTDOB: Community DORIS YOUNG, y Number: [id number] Hospital [place] [address]Icl: [id number] Repository [phone] Date:1274-32-41XF [address] -[address] () [id number] [place] [address]EM: 09/12/2017 Secondary NOT GIVENUNK Lizette Insurance:SELF PAY Replaced By [facility]ANCEChan [facility] Number: Effective Repository Date:2017-09-12
== END 2018-07-31 19:32 | disposition home or self-care (01) ==
PROVIDERS: Emergency Provider Emergency Medicine; Family Provider Family Medicine; PCP Family Medicine
DX: K56.609 Unspecified intestinal obstruction, unspecified as to partial versus complete obstruction (principal); R11.2 Nausea with vomiting, unspecified; I10 Essential (primary) hypertension; K21.9 Gastro-esophageal reflux disease without esophagitis; I73.9 Peripheral vascular disease, unspecified; Z86.711 Personal history of pulmonary embolism; Z79.51 Long term (current) use of inhaled steroids; Z79.899 Other long term (current) drug therapy
CPT/HCPCS: 71046; 74018; 74176; 80053; 81001; 83605; 83690; 84484; 85025; 87040; 93005; 94640; 96365; 96375; 96376; 99285; J7030; A4216; J2405

== ENCOUNTER 2018-09-01 10:55 | Inpatient (IN) | payer OTHER, BC, SELFPAY ==
[2018-08-20 09:42] VITALS: BMI 31.9
[2018-09-01 10:57] VITALS: BP 137/62; PULSE 77; RESP 16; TEMP 36.4; O2SAT 97; BMI 30.5
--- NOTE | 2018-09-01 11:09 | VDUE_ITS ---
Reason For Study: LUE swelling/pain Left Proximal Left jugular vein is spontaneous, widely patent, phasic, with no intraluminal echogenicity noted. Subclavian V and Axillary V are dilated and non-compressible with intraluminal echoes and absent color flow and doppler signal. Left Arm Left brachial vein is compressible. Cephalic V is dilated and non-compressible from origin to antecubital space. Basilic V is non-compressible. Left Lower Arm Left radial vein is compressible. Left ulnar vein is compressible. Interpretation Summary Acute deep venous thrombosis left subclavian and axillary veins. Superficial thrombophlebitis left cephalic and basilic veins. Ordering Physician: Mark Spears Referring Physician: TEO Garcia M.D. Performed By: Mary Nance RVT ?
--- NOTE | 2018-09-01 11:13 | ED.DCSUM_ITS ---
- ER Visit Summary Date of Service: 09/01/18 Chief Complaint: Left arm swelling and pain History of Present Illness: The patient is a 58 M who presents with left arm swelling and pain. He woke up today and his arm was swollen. It tender in the upper part. It radiates to his shoulder. He had a PICC in that upper arm that was removed on August 12. He was admitted to [facility] for a small bowel obstruction. He states his arm feels warm. He denies a fever. He does have a history of pulmonary embolism in September 2017. He was on Eliquis but is currently off of them. Physical Examination: Vital signs are reviewed. HEENT exam unremarkable. Heart is regular rate and rhythm. Lungs are clear to auscultation. Abdomen soft nontender. Left upper arm reveals tenderness on the medial side from the elbow up to the axilla. There is erythema on the medial side. He does have swelling of the upper arm. He does have 2+ radial pulses Test Results: Laboratory studies reveal hemoglobin of 12. Sodium 146. Ultrasound reveals blood clots in the subclavian, axillary and cephalic veins Emergency Department Course and Treatment: Patient does have cellulitic changes over top of these new DVTs. I will give him a dose of Lovenox here. I will give him Ancef. I feel he requires admission for this. I spoke with Dr. Oscar and patient will be admitted Treatment Plan: [] Disposition: Admit Impression: Left upper extremity DVT Left arm cellulitis This note was generated with [employer] dictation software. It may contain incorrect words, spelling, and punctuation that were not noted in review of the chart prior to signing ED Disposition - Plan for ED Patient: Chief Complaint: Upper Extremity Injury Referrals: Arnulfo Garcia III, MD [Primary Care Provider] -
[2018-09-01 12:08] LABS: Absolute Lymphocyte Count 1.62 X10^3/ul (0.83-4.51); Absolute Neutrophil Count 6.1 X10^3/uL (2.0-7.7); Basophil# 0.04 X10^3/uL; Basophil% 0.5 % (0-1); Eosinophil# 0.21 X10^3/uL; Eosinophils% 2.4 % (0-5); Hematocrit 36.8 % (40-54); Lymphocyte # 1.62 X10^3/ul (4.0); Lymphocyte % 18.5 % (19-41); Mean Corp Hgb Conc 32.6 g/gl (32-36); Mean Corpuscular Hgb 30.3 pg (27.0-32.0); Mean Corpuscular Volume 92.9 fL (80-94); Mean Platelet Vol. 8.9 fl (6.2-12.0); Monocyte# 0.82 X10^3/uL; Monocyte% 9.3 % (0-10); Neutrophil # 6.08 X10^3/uL (2.7-7.7); Neutrophil % 69.2 % (47-70); POSITIVE COUNT NO; POSITIVE DIFFERENTIAL NO; POSITIVE MORPHOLOGY NO; Platelet Count 541 K/mm3 (150-450); RBC Distribution Width CV 12.3 % (11.6-14.6); RBC Distribution Width SD 41.6 fl (35.1-43.9); Red Blood Count 3.96 M/mm3 (4.6-6.2); White Blood Count 8.8 K/mm3 (4.4-11.0)
[2018-09-01 12:09] LABS: Anion Gap 9 (5-15); BUN 5 mg/dL (7-18); Chloride 106 mmol/L (98-107); Creatinine, Serum 0.83 mg/dL (0.70-1.30); EST Glomerular Filtration Rate 101 mL/min (>60); Est Glom Filt Rate - Afr Amer 122 mL/min (>60); Estimated Creatinine Clearance 102.06 ml/min; Glucose 92 mg/dL (74-106); Potassium 3.2 mmol/L (3.5-5.1); Sodium Level 146 mmol/L (136-145)
--- NOTE | 2018-09-01 13:07 | PCM.HP.STD ---
Problem List (1) Deep vein thrombosis (DVT) of left upper extremity Status: Acute Qualifiers: Affected thrombotic vein of extremity: unspecified vein of extremity Chronicity: acute Qualified Code(s): I82.622 - Acute embolism and thrombosis of deep veins of left upper extremity (2) Cellulitis of left upper extremity Status: Acute (3) Obesity Status: Chronic Qualifiers: Obesity type: due to excess calories Obesity classification: adult class 1 (BMI 30 - 34.9) Serious obesity comorbidity presence: without serious comorbidity (4) HLD (hyperlipidemia) Status: Chronic Qualifiers: Hyperlipidemia type: unspecified Qualified Code(s): E78.5 - Hyperlipidemia, unspecified (5) Allergic rhinitis Status: Chronic Qualifiers: Allergic rhinitis trigger: unspecified Allergic rhinitis seasonality: unspecified Qualified Code(s): J30.9 - Allergic rhinitis, unspecified (6) Peripheral vascular disease Status: Chronic (7) Asthma, severe persistent Status: Chronic Qualifiers: Asthma complication type: with acute exacerbation Qualified Code(s): J45.51 - Severe persistent asthma with (acute) exacerbation (8) GERD (gastroesophageal reflux disease) Status: Chronic (9) Chronic cough Status: Chronic (10) Benign essential hypertension Status: Chronic History of Present Illness Date of Admission: 09/01/18 Chief Complaint: LUE pain, redness, edema. The patient is a 58 y/o M w/ PMHx: GERD, Obesity, Asthma/COPD, PVD w/ history of artificial veins, History of LLL PE 09/2017 treated x 6 months w/ Eliquis, HTN, HLD, Allergic rhinitis, recent history of recent [facility] admission x 11 days discharged on 08/12/18 w/ SBO requiring ex lap w/ TAURUS on 08/08/18 with usage of PICC line x 3 days for TPN w/ removal on day of discharge who now presents to the [facility] ED on 09/01/18 with history of onset LUE pain, severe, 10/10 radiating from his mid bicep region to his shoulder x 6 days with onset on day of ED presentation LUE edema, redness primarily in the mid bicep region near PICC line insertion region without fever or chills. Workup in the ED included T 97.5, heart rate 77, BP 137/62, respiratory rate 16, 97% on room air, CBC with W BC 8.8, hemoglobin 12, platelet 541 without market shift, BMP with sodium 146, potassium 3.2, DVT LUE present, cephalic, subclavian and axillary veins, cellulitis medial biceps.. In the ED patient administered Rocephin and therapeutic lovenox. Past Medical History Past Medical History (Chronic Problems): Chronic Problems (Last Reviewed 08/20/18 @ 06:15 by Kyleigh Kelley) Obesity (Chronic) HLD (hyperlipidemia) (Chronic) Allergic rhinitis (Chronic) Pulmonary embolism on left (Chronic) Left Lower Lobe Peripheral vascular disease (Chronic) Asthma, severe persistent (Chronic) GERD (gastroesophageal reflux disease) (Chronic) Chronic cough (Chronic) Benign essential hypertension (Chronic) Medical History: Medical History (Last Reviewed 08/20/18 @ 06:15 by Kyleigh Kelley) Pulmonary embolism on left (Chronic) I26.99 Left Lower Lobe Peripheral vascular disease (Chronic) I73.9 Asthma, severe persistent (Chronic) J45.50 GERD (gastroesophageal reflux disease) (Chronic) K21.9 Aspiration pneumonia of right lower lobe (Acute) J69.0 Chronic cough (Chronic) R05 Hypersomnia (Acute) G47.10 PND (paroxysmal nocturnal dyspnea) (Acute) R06.00 Benign essential hypertension (Chronic) I10 Syncope and collapse (Acute) R55 Acute left lower lobe peripheral PE (Inactive) GERD (gastroesophageal reflux disease) (Inactive) K21.9 Partially treated aspiration pneumonia (Inactive) 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) Allergies povidone-iodine [From Betadine] Adverse Reaction (Severe, Verified 08/20/18 06:14) Hives soap [From Betadine] Adverse Reaction (Severe, Verified 08/20/18 06:14) Hives adhesive tape Adverse Reaction (Verified 08/20/18 06:14) Rash benzoin Adverse Reaction (Verified 08/20/18 06:14) Rash doxycycline calcium [From Vibramycin] Adverse Reaction (Verified 08/20/18 06:14) constipation doxycycline hyclate [From Vibramycin] Adverse Reaction (Verified 08/20/18 06:14) constpation doxycycline monohydrate [From Vibramycin] Adverse Reaction (Verified 08/20/18 06:14) constipation hydrocodone bitartrate [From Vicodin] Adverse Reaction (Verified 08/20/18 06:14) constipation tetracycline [Tetracycline] Adverse Reaction (Verified 12/19/18 06:14) constipation Home Medications: Ambulatory Orders Medication Instructions Recorded Atorvastatin Calcium [Lipitor] 20 mg PO QHS 06/17/15 Multivitamins,Therapeutic 1 tab PO DAILY 06/17/15 [Multivitamin] montelukast 10 mg tablet 10 mg PO QPM #30 tab 06/02/18 Guaifenesin [Mucinex] 600 mg PO BID 07/31/18 fluticasone 50 mcg/actuation nasal 2 spray INTRANASAL DAILY #16 g 08/20/18 spray,suspension mometasone-formoterol HFA 200 2 puff INHALATION BID #13 g 08/20/18 mcg-5 mcg/actuation aerosol inhaler Albuterol Sulfate [Proair Hfa] 1 puff INHALATION Q6H PRN PRN 09/01/18 Amlodipine Besylate [Norvasc] 10 mg PO DAILY 09/01/18 Naproxen 500 mg PO PRN PRN 09/01/18 Omeprazole 40 mg PO DAILY 09/01/18 Surgical History: Surgical History (Last Reviewed 08/20/18 @ 06:15 by Kyleigh Kelley) History of sinus surgery (Resolved) Z98.890 History of vein stripping (Resolved) Z98.890 bilateral History of knee surgery (Resolved) Z98.890 History of vasectomy (Resolved) Z98.52 Hx of appendectomy (Resolved) Z98.890, Z90.49 History of cholecystectomy (Resolved) Z98.890, Z90.49 Surgical History: appendectomy, cholecystectomy, - - artificial veins in legs, sinus surgery, BL ankle surgery. Psychiatric History: No pertinent psych hx Lives: Spouse/ Significant Other Smoking Status: Never smoker Tobacco Use: Non-smoker Alcohol: None Drugs: None - *Family History Maternal Family History: Family History (Last Reviewed 08/20/18 @ 06:15 by Kyleigh Kelley) Brother Hypertension History Items: - - Patient notes a maternal family history of hypertension. Paternal Family History: Family History (Last Reviewed 08/20/18 @ 06:15 by Kyleigh Kelley) Brother Hypertension History Items: - - Patient notes a paternal family history of peripheral vascular disease. Review of Systems Constitutional: Reports: Malaise, Weakness, Fatigue. Denies: Chills, Fever, Weight Change HEENT: Denies: Head Aches, Sinus Congestion, Sinus Drainage Cardiovascular: Reports: Edema. Denies: Chest Pain, Palpitations Respiratory: Denies: Cough, Shortness of breath at rest, Sputum production Gastrointestinal: Denies: Abdominal Pain, Constipation, Diarrhea, Nausea, Vomiting Genitourinary: Denies: Dysuria Musculoskeletal: Reports: Arm Pain. Denies: Joint Pain, Joint Tenderness Skin: Reports: Skin Changes. Denies: Rash, Wounds Neurological: Denies: Numbness, Tingling, Focal weakness Psychiatric: Denies: Anxiety, Depression, Homicidal Ideations, Suicidal Ideations Hematologic/ Lymphatic: Reports: Easy Bruising, Easy Bleeding VTE Information - Inpt Only VTE Present on Admission: Yes VTE Mechan Device Prophylaxis: None VTE Pharm Prophylaxis ordered?: Yes Patient Problems: Active and Suspected Problems (Last Reviewed 08/20/18 @ 06:15 by Kyleigh Kelley) Deep vein thrombosis (DVT) of left upper extremity (Acute) Cellulitis of left upper extremity (Acute) Subjective: Seated upright in ED bed, notes ongoing discomfort of left upper extremity. Objective: Physical Examination: General: awake, alert, oriented x 3 and cooperative, seated upright in bed in the ED no apparent distress, is ongoing discomfort to the left upper extremity. Skin: normal color, turgor, no icterus, cyanosis except noted left upper extremity with erythema primarily to the mid bicep region near the prior insertion site of the PICC line, edema, TTP, increased warmth, recent ex lap w/ incisions C/D/I. HEENT: AT/NC, EOMI, PERRLA, MMM, no carotid bruits or JVD noted. Lungs: CTA bilaterally, moderate effort, mild decrease BL bases, no rales, ronchi or wheezing. Heart: Regular rate and rhythm; no gallop, rub audible. Abdomen: soft, obese, NTTP, ND, normal BS, no HSM. Extremities: no cyanosis, clubbing, see skin, peripheral pulses including LUE intact. Neurological: patient awake, alert, oriented x 3; cognitive function intact; pupils equally reactive to light and accomodation; cranial nerves II-XII grossly normal, moving all 4 extremities despite LUE findings, no focal deficits, strength moderately globally decreased secondary to acute presentation. Psychiatric: affect appears normal, no acute evidence of depressive or anxiety feelings. - Physical Exam Vital Signs Temp Pulse Resp BP Pulse Ox 97.5 F L 77 16 137/62 H 97 09/01/18 10:57 09/01/18 10:57 09/01/18 10:57 09/01/18 10:57 09/01/18 10:57 Oxygen Delivery Method Room Air Weight: 219 lb Body Mass Index (BMI) 30.5 Laboratory Tests Past 24 Hrs 09/01/18 09/01/18 11:40 11:40 WBC 8.8 RBC 3.96 L Hgb 12.0 L Hct 36.8 L MCV 92.9 MCH 30.3 MCHC 32.6 RDW 12.3 RDW Differential 41.6 Plt Count 541 H MPV 8.9 Immature Gran % (Auto) 0.100 Neut % (Auto) 69.2 Lymph % (Auto) 18.5 L [place] % (Auto) 9.3 Eos % (Auto) 2.4 Baso % (Auto) 0.5 Absolute Neuts (auto) 6.1 Absolute Lymphs (auto) 1.62 Total Counted Not Reportable Sodium 146 H Potassium 3.2 L Chloride 106 Carbon Dioxide 31.0 Anion Gap 9 BUN 5 L Creatinine 0.83 Estim Creat Clear Calc 102.06 Est GFR (MDRD) Af Amer 122 Est GFR (MDRD) Non-Af 101 BUN/Creatinine Ratio 6.0 L Glucose 92 Calcium 9.0 Assessment/Plan All Active Problems (Last Reviewed 08/20/18 @ 06:15 by Kyleigh Kelley) Deep vein thrombosis (DVT) of left upper extremity (Acute) Cellulitis of left upper extremity (Acute) PND (post-nasal drip) (Acute) History of sinus surgery (Resolved) History of vein stripping (Resolved) History of knee surgery (Resolved) History of vasectomy (Resolved) Hx of appendectomy (Resolved) History of cholecystectomy (Resolved) Aspiration pneumonia of right lower lobe (Acute) Hypersomnia (Acute) PND (paroxysmal nocturnal dyspnea) (Acute) Syncope and collapse (Acute) History of asthma (Ruled-out) The patient is a 58 y/o M w/ PMHx: GERD, Obesity, Asthma/COPD, PVD w/ history of artificial veins, History of LLL PE 09/2017 treated x 6 months w/ Eliquis, HTN, HLD, Allergic rhinitis, recent history of recent [facility] admission x 11 days discharged on 08/12/18 w/ SBO requiring ex lap w/ TAURUS on 08/08/18 with usage of PICC line x 3 days for TPN w/ removal on day of discharge who now presents to the [facility] ED on 09/01/18 with history of onset LUE pain, severe, 10/10 radiating from his mid bicep region to his shoulder x 6 days with onset on day of ED presentation LUE edema, redness primarily in the mid bicep region near PICC line insertion region without fever or chills. (1) LUE Extremity Cellulitis complicated by #2, Acute LUE DVT as noted: Admission CBC w/ WBC 8.8 without marked shift, afebrile. Will admit to [facility], maintain on IV ancef with pending MRSA screen given recent admission, continue affected extremity elevation above heart when seated and in bed, monitor erythema outline with VS checks, continue therapeutic lovenox regimen as noted #2. (2) LUE DVT w/ history of recent PE w/ ? Artificial Veins BL LE History: Treated x 6 months, history of PICC line LUE removed 08/12/18, likely provoked given this history and prior intervention with initial, continue therapeutic lovenox pending AM case management/social work oral therapy assessment. (3) Chronic Asthma/COPD w/ Allergic Rhinitis: Continue home dulera and breo regimen, PRN albuterol, HOB, IS parameters, continue home fluticasone and montelukast. (4) Obesity: Weight loss and lifestyle changes encouraged. (5) Hypertension: Continue home regimen including Norvasc, PRN hydralazine. (6) Hyperlipidemia: Continue home statin therapy. (7) Hypokalemia: Admission K+ 3.2, supplementation given, repeat level in AM. (8) Recent SBO s/p Ex Lap: 08/12/18 discharge, noted 08/08/18 TAURUS w/ ex lap, notes completely resolved, incisions C/D/I. (9) GERD: PPI. (10) DVT Prophylaxis: AVOID SCDs/TEDs secondary to history of ? artificial veins, therapeutic lovenox. Code Visit Inpatient E&M: 22828 Init Hosp L3
[2018-09-01] MEDS: Enoxaparin 100 MG/ML Syringe SC ×2 (13:43→21:56)
[2018-09-01] MEDS: Cefazolin 1 GM/50 ML BAG IV ×2 (13:56→21:55)
[2018-09-01 15:15] VITALS: BMI 31.6
[2018-09-01 15:17] VITALS: BMI 31.7
[2018-09-01 15:36] VITALS: BP 122/65; PULSE 66; RESP 16; TEMP 36.6; O2SAT 93
[2018-09-01 15:47] LABS: Magnesium 1.6 mg/dL (1.6-2.6)
[2018-09-01 16:04] VITALS: PULSE 66; RESP 18; O2SAT 93
[2018-09-01] MEDS: Albuterol 2.5 MG/3 ML VIAL.NEB. INHALATION (16:04)
[2018-09-01] MEDS: HYDROcodone Bitartrate/Apap 5/325 Tablet PO ×2 (16:04→22:50)
[2018-09-01] MEDS: 0.9% Normal Saline 1,000 ML 100 ML IV (16:04)
[2018-09-01] MEDS: Budesonide Respules 0.5 MG/2 ML AMPUL.NEB. INHALATION (16:09)
[2018-09-01 20:36] LABS: M R Staph aureus DNA By PCR Negative (Negative); Probe Check PASS; Specimen Processing Control PASS
[2018-09-01] MEDS: Montelukast 10 MG Tablet PO (21:55)
[2018-09-01] MEDS: Atorvastatin Calcium 20 MG Tablet PO (21:55)
[2018-09-01] MEDS: guaiFENesin 600 MG Tablet PO (21:56)
[2018-09-01 22:34] VITALS: BP 128/62; PULSE 68; RESP 16; TEMP 36.8; O2SAT 94
[2018-09-02] VITALS (8 sets, daily range): BP systolic 106–124; BP diastolic 50–64; PULSE 60–68; RESP 16–18; TEMP 36.4–36.9; O2SAT 93–98
[2018-09-02] MEDS: HYDROcodone Bitartrate/Apap 5/325 Tablet PO ×3 (05:15→22:21)
[2018-09-02] MEDS: Cefazolin 1 GM/50 ML BAG IV (05:15)
[2018-09-02] MEDS: 0.9% NaCl Peripheral Flush Adult/Peds IV (05:16)
[2018-09-02] MEDS: Budesonide Respules 0.5 MG/2 ML AMPUL.NEB. INHALATION ×2 (06:38→19:20)
[2018-09-02] MEDS: Albuterol 2.5 MG/3 ML VIAL.NEB. INHALATION ×3 (06:38→19:20)
[2018-09-02 07:07] LABS: Absolute Lymphocyte Count 2.11 X10^3/ul (0.83-4.51); Absolute Neutrophil Count 3.7 X10^3/uL (2.0-7.7); Basophil# 0.05 X10^3/uL; Basophil% 0.7 % (0-1); Eosinophil# 0.26 X10^3/uL; Eosinophils% 3.8 % (0-5); Hematocrit 35.2 % (40-54); Hemoglobin 11.4 g/dl (13.0-16.5); Lymphocyte # 2.11 X10^3/ul (4.0); Mean Corp Hgb Conc 32.4 g/gl (32-36); Mean Corpuscular Hgb 30.7 pg (27.0-32.0); Mean Corpuscular Volume 94.9 fL (80-94); Mean Platelet Vol. 9.3 fl (6.2-12.0); Monocyte# 0.71 X10^3/uL; Monocyte% 10.4 % (0-10); Neutrophil # 3.67 X10^3/uL (2.7-7.7); Platelet Count 533 K/mm3 (150-450); RBC Distribution Width CV 12.2 % (11.6-14.6); RBC Distribution Width SD 40.9 fl (35.1-43.9); Red Blood Count 3.71 M/mm3 (4.6-6.2); White Blood Count 6.8 K/mm3 (4.4-11.0)
[2018-09-02 07:16] LABS: POSITIVE COUNT NO; POSITIVE DIFFERENTIAL NO; POSITIVE MORPHOLOGY NO
[2018-09-02 07:38] LABS: Anion Gap 8 (5-15); BUN 4 mg/dL (7-18); BUN/Creat Ratio 5.5 RATIO (10-20); Calcium,Total 8.1 mg/dL (8.5-10.1); Chloride 109 mmol/L (98-107); Creatinine, Serum 0.72 mg/dL (0.70-1.30); EST Glomerular Filtration Rate 118 mL/min (>60); Est Glom Filt Rate - Afr Amer 142 mL/min (>60); Estimated Creatinine Clearance 117.66 ml/min; Glucose 87 mg/dL (74-106); Potassium 3.2 mmol/L (3.5-5.1); Sodium Level 143 mmol/L (136-145)
[2018-09-02] MEDS: Fluticasone 0.05% 1 SPRAY NASAL.SRY 2 SPRAY NASAL (08:18)
[2018-09-02] MEDS: Pantoprazole Sodium 40 MG Tablet PO (08:19)
[2018-09-02] MEDS: guaiFENesin 600 MG Tablet PO ×2 (08:19→22:16)
[2018-09-02] MEDS: amLODIPine 10 MG Tablet PO (08:19)
[2018-09-02] MEDS: Enoxaparin 100 MG/ML Syringe SC ×2 (08:19→22:16)
[2018-09-02] MEDS: Senna/Docusate Sodium 1 Tablet 2 TABLET PO (11:53)
--- NOTE | 2018-09-02 13:08 | PCM.PROGNOTE ---
Patient Problems: Active and Suspected Problems (Last Reviewed 08/20/18 @ 06:15 by Kyleigh Kelley) Deep vein thrombosis (DVT) of left upper extremity (Acute) Cellulitis of left upper extremity (Acute) Subjective: The patient is a 58-year-old male with a past medical history of GERD, obesity, asthma/COPD, peripheral vascular disease with history of artificial veins, history of left lower extremity DVT with pulmonary emboli in September 2017 3 months after surgery on his L ankle, hypertension, hyperlipidemia, allergic rhinitis, recent admission to [facility] for 11 days due to small bowel obstruction requiring exploratory laparotomy with lysis of adhesions on 08/08/2018. He had a PICC line for TPN during that admission. He presented to the emergency department at [facility] on 09/01/2018 complaining of swelling and pain in his left upper extremity. He denied fever or chills. White blood cell count was 8.8 with a normal differential at admission. Potassium was low at 3.2 and is still low at 3.2. Hemoglobin is low at 12 with normochromic normocytic indices. Platelets are increased at 541,000. Creatinine is 0.83. Magnesium was borderline low at 1.6. Ultrasound of the left upper extremity showed subclavian vein and axillary vein on the left to be dilated and noncompressible with intraluminal echoes and absent color flow and Doppler signal. The left cephalic vein was also dilated and noncompressible and so was the basilic vein. He was admitted to the hospital and placed on therapeutic Lovenox and Ancef for suspected cellulitis. Afebrile since admission Repeat CBC today again showed a normal white blood cell count at 6.8 with an unremarkable differential. Potassium is still low at 3.2 He denies any personal or family history of hypercoagulable disorders. Denies any recent unexplained weight loss. No history of CA. Denies CP and also denies SOB and hemoptysis. No hypercoagulable workup has ever been done at [facility]. Objective: PHYSICAL EXAM: GENERAL: alert, oriented X 3, Cooperative, NAD ORAL: moist mucosa, no mucosal lesions NECK: No JVD, supple, trachea midline LUNGS: CTA, symmetric chest expansion HEART: RRR, Normal S1 and S2, no rub, no gallop ABDOMEN: soft, NT, ND, BS present, no guarding with palpation EXTREMITIES: The left upper extremity is edematous and there is an area of erythema over the biceps area in the proximal arm. It is warm to touch. There are no openings in the skin. No calf tenderness. SKIN: No rashes, no breakdown NEUROLOGIC: no focal neurologic deficits PSYCH: appropriate, normal affect, pleasant - Physical Exam Vital Signs Temp Pulse Resp BP Pulse Ox 98.5 F 68 18 119/57 L 96 09/02/18 08:03 09/02/18 08:14 09/02/18 08:03 09/02/18 08:03 09/02/18 08:03 Oxygen Delivery Method Room Air Weight: 227 lb 4.745 oz Body Mass Index (BMI) 31.6 Intake and Output for Last 24 Hours 08/31/18 09/01/18 09/02/18 23:59 23:59 23:59 Intake Total 1623 / 1623 Balance 1623 / 1623 Laboratory Tests Past 24 Hrs 09/01/18 09/01/18 09/02/18 11:40 17:55 06:24 WBC RBC Hgb Hct MCV MCH MCHC RDW RDW Differential Plt Count MPV Immature Gran % (Auto) Neut % (Auto) Lymph % (Auto) [place] % (Auto) Eos % (Auto) Baso % (Auto) Absolute Neuts (auto) Absolute Lymphs (auto) Total Counted Sodium 143 Potassium 3.2 L Chloride 109 H Carbon Dioxide 26.0 Anion Gap 8 BUN 4 L Creatinine 0.72 Estim Creat Clear Calc 117.66 Est GFR (MDRD) Af Amer 142 Est GFR (MDRD) Non-Af 118 BUN/Creatinine Ratio 5.5 L Glucose 87 Calcium 8.1 L Magnesium 1.6 MRSA (PCR) Negative 09/02/18 06:24 WBC 6.8 RBC 3.71 L Hgb 11.4 L Hct 35.2 L MCV 94.9 H MCH 30.7 MCHC 32.4 RDW 12.2 RDW Differential 40.9 Plt Count 533 H MPV 9.3 Immature Gran % (Auto) 0.100 Neut % (Auto) 54.0 Lymph % (Auto) 31.0 [place] % (Auto) 10.4 H Eos % (Auto) 3.8 Baso % (Auto) 0.7 Absolute Neuts (auto) 3.7 Absolute Lymphs (auto) 2.11 Total Counted Not Reportable Sodium Potassium Chloride Carbon Dioxide Anion Gap BUN Creatinine Estim Creat Clear Calc Est GFR (MDRD) Af Amer Est GFR (MDRD) Non-Af BUN/Creatinine Ratio Glucose Calcium Magnesium MRSA (PCR) Medical Necessity - Tobacco Use Smoking Status: Never smoker Tobacco Use: Non-smoker Assessment/Plan All Active Problems (Last Reviewed 08/20/18 @ 06:15 by Kyleigh Kelley) Deep vein thrombosis (DVT) of left upper extremity (Acute) Cellulitis of left upper extremity (Acute) PND (post-nasal drip) (Acute) History of sinus surgery (Resolved) History of vein stripping (Resolved) History of knee surgery (Resolved) History of vasectomy (Resolved) Hx of appendectomy (Resolved) History of cholecystectomy (Resolved) Aspiration pneumonia of right lower lobe (Acute) Hypersomnia (Acute) PND (paroxysmal nocturnal dyspnea) (Acute) Syncope and collapse (Acute) History of asthma (Ruled-out) Impressions 1. Deep vein thrombosis left upper extremity likely related to a recent PICC line. Previous history of DVT left lower extremity that occurred 3 months after a surgery on the left ankle. I am concerned he may have a hypercoagulable disorder but he is already on Lovenox and the tests are invalidated if ordered while on anticoagulation. 2. Previous history of DVT left lower extremity and pulmonary emboli 3. GERD 4. Obesity 5. Asthma/COPD 6. Hypertension 7. Hyperlipidemia 8. Recent exploratory laparotomy for lysis of adhesions 9. Normochromic normocytic anemia of unexplained etiology in association with thrombocytosis - may be related to recent surgery CTA scan of the chest - to help determine the length of anticoagulation Hemoccult stool Check iron studies I advised him to follow-up with a geology professor 2 weeks after he concludes anticoagulation therapy for a hypercoagulable workup He has Eliquis at home from the last time he had VTE Continue the Lovenox for now and check to see if his insurance will cover Eliquis DC the Anc - I feel that the redness in the LUE is due to the DVT and not due to cellulitis....he is AF with a normal WBC and normal diff. Code Visit Inpatient E&M: 43847 Subs Hosp L2
--- NOTE | 2018-09-02 13:19 | CT_ITS ---
STUDY: CTA CHEST REASON FOR EXAM: Male, 58 years old. History of pulmonary embolus and deep vein thrombosis in the upper extremity. RADIATION DOSAGE (If Supplied By Facility): CTDIvol = ( 14.77 ) mGy, DLP = ( 745.49 ) mGycm TECHNIQUE: The examination was performed with the intravenous administration of 100 ml of Isovue 370 contrast material. Post-processing of the angiographic images was performed, with multiplanar reformation and 3D reconstruction. Individualized dose optimization techniques were used for this CT. COMPARISON: CTA chest 09/11/2017, 06/24/2015. FINDINGS: Supraclavicular: No acute process. Upper extremities: There is induration in the fat of the left axilla, induration in the left upper arm overlying the deltoid. Induration in the deep subcutaneous fat lateral to the margin of the left pectoralis. Uncertain etiology. Possibly associated with acute left upper extremity deep vein thrombosis, based on the clinical history provided. Thoracic body wall soft tissues: Otherwise unremarkable. Upper abdomen: Cholecystectomy, mild pancreatic atrophy. No acute process. Osseous structures: No acute process. Mediastinum: Normal esophagus. No mass or lymphadenopathy. Minimal sliding hiatal hernia. Lungs: There is a pattern of minimal tree-in-bud nodular opacities left infrahilar, associated with very slight focus of groundglass opacity. No other defined infiltrate Probably chronic. Difficult to exclude the possibility of an acute inflammatory/infectious process. Cardiovascular: Normal cardiac size without pericardial effusion. No visible coronary calcifications. Normal aorta. Normal central pulmonary arteries. No evidence of large central embolus. No evidence of peripheral pulmonary embolus. CT/CTA Chest W/WO Contrast IMPRESSION: No evidence of peripheral pulmonary embolus. Abnormal views of the left thoracic wall, axilla and proximal left upper extremities may be associated with left upper extremity DVT. Subtle ground glass opacity and tree-in-bud nodular opacities left infrahilar, lower lobe medial basilar segment. Differential considerations include both chronic and acute pneumonitis. Electronically Signed: Tucker Hazel MD at 15:50 EST Tel , Service support ,
[2018-09-02] MEDS: Magnesium Sulfate 4gm/100mL 4 GM/100 ML IV.SOLN. IV (14:29)
[2018-09-02 14:40] LABS: Ferritin 205 ng/mL (26-388); Iron 24 ug/dL (65-175); Iron Binding Capacity,Total 191 ug/dL (250-450); PERCENT IRON SATURATION 12.6 % (15.0-55.0)
[2018-09-02] MEDS: Atorvastatin Calcium 20 MG Tablet PO (22:16)
[2018-09-02] MEDS: Montelukast 10 MG Tablet PO (22:16)
[2018-09-03 04:02] VITALS: BP 120/57; PULSE 68; RESP 18; TEMP 36.7; O2SAT 97
[2018-09-03 06:14] LABS: Hematocrit 35.9 % (40-54); Hemoglobin 11.6 g/dl (13.0-16.5); Mean Corp Hgb Conc 32.3 g/gl (32-36); Mean Corpuscular Hgb 30.9 pg (27.0-32.0); Mean Corpuscular Volume 95.5 fL (80-94); Mean Platelet Vol. 9.3 fl (6.2-12.0); Platelet Count 504 K/mm3 (150-450); RBC Distribution Width CV 12.1 % (11.6-14.6); Red Blood Count 3.76 M/mm3 (4.6-6.2); White Blood Count 6.1 K/mm3 (4.4-11.0)
[2018-09-03 06:15] LABS: Scan Indicated on CBC? Y/N NO
[2018-09-03 06:32] LABS: ALB/GLOB Ratio 0.8 RATIO (0.9-2.4); AST(SGOT) 16 U/L (15-37); Alanine Aminotransfer ALT/SGPT 20 U/L (16-61); Albumin, Serum 2.7 g/dL (3.2-5.0); Alkaline Phosphatase 137 U/L (45-117); Anion Gap 9 (5-15); BUN 5 mg/dL (7-18); BUN/Creat Ratio 7.3 RATIO (10-20); Calcium,Total 8.4 mg/dL (8.5-10.1); Chloride 108 mmol/L (98-107); Creatinine, Serum 0.69 mg/dL (0.70-1.30); EST Glomerular Filtration Rate 125 mL/min (>60); Est Glom Filt Rate - Afr Amer 151 mL/min (>60); Estimated Creatinine Clearance 122.77 ml/min; Globulin 3.5 g/dL (2.2-4.2); Glucose 84 mg/dL (74-106); Magnesium 2.3 mg/dL (1.6-2.6); Potassium 4.1 mmol/L (3.5-5.1); Protein, Total 6.2 g/dL (6.4-8.2); Sodium Level 144 mmol/L (136-145)
[2018-09-03] MEDS: Albuterol 2.5 MG/3 ML VIAL.NEB. INHALATION ×2 (07:55→13:39)
[2018-09-03] MEDS: Budesonide Respules 0.5 MG/2 ML AMPUL.NEB. INHALATION (07:55)
[2018-09-03 07:56] VITALS: PULSE 64; RESP 18; O2SAT 96
[2018-09-03] MEDS: guaiFENesin 600 MG Tablet PO (08:38)
[2018-09-03] MEDS: Enoxaparin 100 MG/ML Syringe SC (08:38)
[2018-09-03] MEDS: Fluticasone 0.05% 1 SPRAY NASAL.SRY 2 SPRAY NASAL (08:38)
[2018-09-03] MEDS: amLODIPine 10 MG Tablet PO (08:38)
[2018-09-03] MEDS: Pantoprazole Sodium 40 MG Tablet PO (08:38)
[2018-09-03 08:40] VITALS: BP 117/59; PULSE 70; RESP 16; TEMP 36.7; O2SAT 95
--- NOTE | 2018-09-03 10:05 | CASEMGMT ---
CARMEN MONTIEL ASSESSMENT To room to talk with patient for initial transition planning/care coordination assessment. CARMEN MONTIEL introduced self and role at [facility]. Pt voices understanding and consents to assessment at this time. Pt sitting up in recliner chair, in no distress at this time. Pt is A/O at this time and answers all questions appropriately. Care providers, pharmacy, and demographics verified/updated at this time. PCP: Nimco Alegria Pharmacy: [facility] Insurance: 2018: [employer] 2019: [place]. Pt states will contact his to bring in new Insurance Card. Pt had questions about ER visit and discount. Pt provided with [employer] Customer Service phone number and instructed him to contact them. Prescription Benefit: Yes. States if he would discharge home on Eliquis, that he has 2 months supply of Eliquis @ home. Pt made aware that if he does get discharged on Eliquis, to notify PCP if [id number] expense for refills is too high to discuss this with PCP about alternatives or financial assistance. Unable to determine pt's co-pay for Eliquis until new Insurance Card available. Pt voiced understanding. Living Will/HPOA: Does not have LW or HCPOA and is not interested in any further information. Living Arrangements: Lives with . Is independent @ home and requires no assistance. Transportation: Pt states drives self and states no transportation concerns at this time. DME/HHC: Denies using any DME and denies needs. States has the following DME: Pt states no need for further DME at this time. Pt wishes to return home and states has no concerns with going home at time of discharge. Pt states does not smoke or drink ETOH. CM to follow for home oxygen needs and any further discharge planning/needs. Pt voices no further concerns/needs at this time. Advised pt to ask for CM if any further questions/concerns/needs arise. Voices understanding. Plan: Home Qing KNAPP RN, CM
[2018-09-03 13:39] VITALS: PULSE 70; RESP 18
[2018-09-03 15:35] VITALS: BP 113/55; PULSE 77; RESP 18; TEMP 36.8; O2SAT 96
--- NOTE | 2018-09-03 16:10 | DCINST_ITS ---
- Discharge Diagnoses Current Active Problems: Current Active and Chronic Problems (Last Reviewed 08/20/18 @ 06:15 by Kyleigh Kelley) Deep vein thrombosis (DVT) of left upper extremity (Acute) Cellulitis of left upper extremity (Acute) Obesity (Chronic) HLD (hyperlipidemia) (Chronic) Allergic rhinitis (Chronic) You will use the following diet at home:: No restrictions Your food should be the consistency of: Regular Your liquids should be the consistency of: Regular/Thin Discharge Activity: - - no contact sports Keep extremity elevated above heart level: Left Arm Call your doctor if you observe: Fever of 101 or Higher, Shortness of breath, Chest pain, Uncontrolled pain Additional Instructions: 1. The chest CT was negative for pulmonary emboli. The stool was negative for blood. 2. You have to load Eliquis to get it therapeutic. Take 10 mg every 12 hours for 1 week and then decrease to 5 mg every 12 hours. You will need to take at least 3 months of Eliquis. 3. You seem to form clots easily and this is your second episode of venous thromboembolism. I am concerned you may have a hypercoagulable disorder that makes your blood clot easier than normal. You can not be tested for these disorders until you have been off the anticoagulants for 2 weeks. You can follow up with either Dr. Mcmanus or Dr. Whaley in 3 months and 2 weeks. There office [facility] [place] [facility] [place]. Allergies/Adverse Reactions: Allergies povidone-iodine [From Betadine] Adverse Reaction (Severe, Verified 08/20/18 06:14) Hives soap [From Betadine] Adverse Reaction (Severe, Verified 08/20/18 06:14) Hives adhesive tape Adverse Reaction (Verified 08/20/18 06:14) Rash benzoin Adverse Reaction (Verified 08/20/18 06:14) Rash doxycycline calcium [From Vibramycin] Adverse Reaction (Verified 08/20/18 06:14) constipation doxycycline hyclate [From Vibramycin] Adverse Reaction (Verified 08/20/18 06:14) constpation doxycycline monohydrate [From Vibramycin] Adverse Reaction (Verified 08/20/18 06:14) constipation hydrocodone bitartrate [From Vicodin] Adverse Reaction (Verified 08/20/18 06:14) constipation tetracycline [Tetracycline] Adverse Reaction (Verified 08/20/18 06:14) constipation Medications to take at Discharge Atorvastatin Calcium [Lipitor] 20 mg PO QHS 06/17/15 Multivitamins,Therapeutic [Multivitamin] 1 tab PO DAILY 06/17/15 montelukast 10 mg tablet 10 mg PO QPM #30 tab 06/02/18 Guaifenesin [Mucinex] 600 mg PO BID 07/31/18 fluticasone 50 mcg/actuation nasal spray,suspension 2 spray INTRANASAL DAILY #16 g 08/20/18 mometasone-formoterol HFA 200 mcg-5 mcg/actuation aerosol inhaler 2 puff INHALATION BID #13 g 08/20/18 Albuterol Sulfate [Proair Hfa] 1 puff INHALATION Q6H PRN PRN 09/01/18 Amlodipine Besylate [Norvasc] 10 mg PO DAILY 09/01/18 Naproxen 500 mg PO PRN PRN 09/01/18 Omeprazole 40 mg PO DAILY 09/01/18 Amlodipine [Norvasc] 10 mg PO DAILY tablet 09/03/18 Apixaban [Eliquis] 5 mg PO Q12H #60 tab 09/03/18 The following prescriptions were given: Apixaban [Eliquis] 5 mg PO Q12H #60 tab Primary Care Physician: Arnulfo Garcia III, MD [Primary Care Provider] - Please follow up with your Primary Care Physician in: 5-7 days Test Results: Test results from this visit will be discussed in further detail at your follow- up appointment, if applicable. Please Follow Up With: Kiran Whaley MD When: 3 months.....2 weeks after the Eliquis has been stopped Proposed Discharge Date: 09/03/18
--- NOTE | 2018-09-03 16:36 | DS.PCM_ITS ---
Discharge Date and Diagnosis - Problem List Patient Problems: Active and Suspected Problems (Last Reviewed 08/20/18 @ 06:15 by Kyleigh Kelley) Normochromic normocytic anemia (Acute) Asthma (Acute) Deep vein thrombosis (DVT) of left upper extremity (Acute) Date of Admission: 09/01/18 Date of Discharge: 09/03/18 - Primary Discharge Diagnosis Active and Suspected Problems (Last Reviewed 08/20/18 @ 06:15 by Kyleigh Kelley) Deep vein thrombosis (DVT) of left upper extremity (Acute) Cellulitis - ruled out Normochromic normocytic anemia (Acute) - Secondary Discharge Diagnosis Chronic Problems (Last Reviewed 08/20/18 @ 06:15 by Kyleigh Kelley) Obesity (Chronic) HLD (hyperlipidemia) (Chronic) Allergic rhinitis (Chronic) Pulmonary embolism on left (Chronic)- past, resolved Peripheral vascular disease (Chronic) Asthma, severe persistent (Chronic) GERD (gastroesophageal reflux disease) (Chronic) Chronic cough (Chronic) Benign essential hypertension (Chronic) Hospital Course and Treatment Imaging Results: Clinical Impression(s) from Imaging Studies Chest CTA 09/02/18 13:19 IMPRESSION: No evidence of peripheral pulmonary embolus. Abnormal views of the left thoracic wall, axilla and proximal left upper extremities may be associated with left upper extremity DVT. Subtle ground glass opacity and tree-in-bud nodular opacities left infrahilar, lower lobe medial basilar segment. Differential considerations include both chronic and acute pneumonitis. Electronically Signed: Tucker Hazel MD at 15:50 EST Tel , Service support , Laboratory Results - last 24 hr 09/03/18 09/03/18 05:54 05:54 WBC 6.1 RBC 3.76 L Hgb 11.6 L Hct 35.9 L MCV 95.5 H MCH 30.9 MCHC 32.3 RDW 12.1 RDW Differential 41.0 Plt Count 504 H MPV 9.3 Sodium 144 Potassium 4.1 Chloride 108 H Carbon Dioxide 27.0 Anion Gap 9 BUN 5 L Creatinine 0.69 L Estim Creat Clear Calc 122.77 Est GFR (MDRD) Af Amer 151 Est GFR (MDRD) Non-Af 125 BUN/Creatinine Ratio 7.3 L Glucose 84 Calcium 8.4 L Magnesium 2.3 Total Bilirubin 0.40 AST 16 ALT 20 Alkaline Phosphatase 137 H Total Protein 6.2 L Albumin 2.7 L Globulin 3.5 Albumin/Globulin Ratio 0.8 L none Operations: None Procedures: None Summary of Care Provided: The patient is a 58-year-old male with a past medical history of GERD, obesity, asthma/COPD, peripheral vascular disease with history of artificial veins, history of left lower extremity DVT with pulmonary emboli in September 2017 3 months after surgery on his L ankle, hypertension, hyperlipidemia, allergic rhinitis, recent admission to [facility] for 11 days due to small bowel obstruction requiring exploratory laparotomy with lysis of adhesions on 08/08/2018. He had a PICC line for TPN during that admission. He presented to the emergency department at [facility] on 09/01/2018 complaining of swelling and pain in his left upper extremity. He denied fever or chills. White blood cell count was 8.8 with a normal differential at admission. Potassium was low at 3.2 and on the day of DC it was 4.1 following supplementation. Hemoglobin was low at 12 with normochromic normocytic indices(possibly related to recent ex-lap). Platelets were increased at 541,000. Creatinine was 0.83. Magnesium was borderline low at 1.6. Ultrasound of the left upper extremity showed subclavian vein and axillary vein on the left to be dilated and noncompressible with intraluminal echoes and absent color flow and Doppler signal. The left cephalic vein was also dilated and noncompressible and so was the basilic vein. He was admitted to the hospital and placed on therapeutic Lovenox and Ancef for suspected cellulitis. Cellulitis was ruled out as he was afebrile with normal WBC and diff. Ancef was discontinued. The erythema and warmth were felt to be due to DVT. A CTA of the chest was done and was negative for PE's. A hemoccult stool was negative. He was discharged home on Elquis 10 mg Q 12H for 1 week and then he will decrease to 5 mg q 12H. He should be anticoagulated for 3 months. I am concerned since he has now had 2 episodes of venous thromboembolism that he may have a hypercoagulable disorder. I recommended to him that he follow up with hematology 2 weeks after he concludes treatment with Eliquis for W/U for hypercoagulable disorders. PHYSICAL EXAM: GENERAL: alert, oriented X 3, Cooperative, NAD ORAL: moist mucosa, no mucosal lesions NECK: No JVD, supple, trachea midline LUNGS: CTA, symmetric chest expansion HEART: RRR, Normal S1 and S2, no rub, no gallop ABDOMEN: soft, NT, ND, BS present, no guarding with palpation EXTREMITIES: The left upper extremity is edematous and there is an area of erythema over the biceps area in the proximal arm. It is warm to touch. There are no openings in the skin. No calf tenderness. The erythema of the LUE has decreased since admission and the pain is better SKIN: No rashes, no breakdown NEUROLOGIC: no focal neurologic deficits PSYCH: appropriate, normal affect, pleasant This note was generated with [employer] dictation software. It may contain incorrect words, spelling, and punctuation that were not noted in checking the note before signing. Patient Problems: Active and Suspected Problems (Last Reviewed 08/20/18 @ 06:15 by Kyleigh Kelley) Normochromic normocytic anemia (Acute) Asthma (Acute) Deep vein thrombosis (DVT) of left upper extremity (Acute) - Physical Exam Vital Signs Temp Pulse Resp BP Pulse Ox 98.2 F 77 18 113/55 L 96 09/03/18 15:35 09/03/18 15:35 09/03/18 15:35 09/03/18 15:35 09/03/18 15:35 Oxygen Delivery Method Room Air Weight: 227 lb 4.745 oz Body Mass Index (BMI) 31.6 Intake and Output for Last 24 Hours 09/01/18 09/02/18 09/03/18 23:59 23:59 23:59 Intake Total 2122 / 2122 760 / 760 Balance 2122 / 2122 760 / 760 Microbiology Past 72 Hours 09/03/18 11:50 Stool Occult Blood (LAURA) - Final Stool Laboratory Tests Past 24 Hrs 09/03/18 09/03/18 05:54 05:54 WBC 6.1 RBC 3.76 L Hgb 11.6 L Hct 35.9 L MCV 95.5 H MCH 30.9 MCHC 32.3 RDW 12.1 RDW Differential 41.0 Plt Count 504 H MPV 9.3 Sodium 144 Potassium 4.1 Chloride 108 H Carbon Dioxide 27.0 Anion Gap 9 BUN 5 L Creatinine 0.69 L Estim Creat Clear Calc 122.77 Est GFR (MDRD) Af Amer 151 Est GFR (MDRD) Non-Af 125 BUN/Creatinine Ratio 7.3 L Glucose 84 Calcium 8.4 L Magnesium 2.3 Total Bilirubin 0.40 AST 16 ALT 20 Alkaline Phosphatase 137 H Total Protein 6.2 L Albumin 2.7 L Globulin 3.5 Albumin/Globulin Ratio 0.8 L Discharge Activity: - - no contact sports Keep extremity elevated above heart level: Left Arm Call your doctor if you observe: Fever of 101 or Higher, Shortness of breath, Chest pain, Uncontrolled pain Home Medications: Medications to take at Discharge Atorvastatin Calcium [Lipitor] 20 mg PO QHS 06/17/15 Multivitamins,Therapeutic [Multivitamin] 1 tab PO DAILY 06/17/15 montelukast 10 mg tablet 10 mg PO QPM #30 tab 06/02/18 Guaifenesin [Mucinex] 600 mg PO BID 07/31/18 fluticasone 50 mcg/actuation nasal spray,suspension 2 spray INTRANASAL DAILY #16 g 08/20/18 mometasone-formoterol HFA 200 mcg-5 mcg/actuation aerosol inhaler 2 puff INHALATION BID #13 g 08/20/18 Albuterol Sulfate [Proair Hfa] 1 puff INHALATION Q6H PRN PRN 09/01/18 Amlodipine Besylate [Norvasc] 10 mg PO DAILY 09/01/18 Naproxen 500 mg PO PRN PRN 09/01/18 Omeprazole 40 mg PO DAILY 09/01/18 Amlodipine [Norvasc] 10 mg PO DAILY tablet 09/03/18 Apixaban [Eliquis] 5 mg PO Q12H #60 tab 09/03/18 Following Prescrptions Were Given to Patient: Apixaban [Eliquis] 5 mg PO Q12H #60 tab Primary Care Physician: Arnulfo Garcia III, MD [Primary Care Provider] - Please follow up with your Primary Care Physician in: 5-7 days Please Follow Up With: Kiran Whaley MD When: 3 months.....2 weeks after the Eliquis has been stopped Disposition: Home Minutes spent on discharge:: 30 Patient Condition:: Good Medical Necessity - Tobacco Use Smoking Status: Never smoker Tobacco Use: Non-smoker Meaningful Use Info Meaningful Use Diagnoses (Choose all that apply): VTE - VTE Anticoag overlap given w/in hospital stay or rx'd at dc?: No Pt receive overlap for 5 days?: No Reason overlap not ordered, prescribed, or given for 5 days: Treatment Not Indicated - discharged on Eliquis Code Visit Inpatient E&M: 65660 Disch Hosp
[2018-09-03] MEDS: APIXABAN 5 MG TABLET 10 MG PO (16:54)
--- NOTE | 2018-09-04 13:07 | CASEMGMT ---
CARMEN MONTIEL Discharge Follow-Up Phone Call. ALISA: 11 Strata: 3 Discharge Date: 09/03/18 Adm Dx: Cellulitis LUE, LUE DVT Call placed to Mr Cao to inquire how he has been doing since he was discharged from the hospital. He states he is doing much better. He states Things are going pretty good. I slept well last night and I haven't needed any pain medicine since I've been home. States he has an appt with his PCP Dr Miramontes for 09/11/18 [address] an appt with Dr Whaley December 15. He states the Elliquis he has at home is 5 mg tablets and that he has been taking 2 tabs twice a day to equal 10 mg twice a day for the 1st week and he is aware he is to take just 5 mg twice a day thereafter for a total of 3 months. Mr Cao states that he had 2 bottles of Eliquis 5 mg at home with 60 tablets in each bottle. Prescription sent home for Eliquis was a total of 60 tablets. Pt would need a total of 70 tablets for the 1st month d/t taking 10 mg BID x 1 week, so would not have enough tablets to complete the 3 months total. Advised pt to discuss this with Dr Garcia when he goes in for his appt next week about his supply and total amt needed and pt stated he would do this. Pt states he has no further questions or concerns about discharge instructions. Thanked Mr Cao for choosing [facility]. Qing KNAPP RN, CM
== END 2018-09-03 17:22 | disposition home or self-care (01) | DRG 301 ==
LOC: ED 11:52 → MS3 14:27
PROVIDERS: Admitting Provider Family Medicine; Emergency Provider Emergency Medicine; Family Provider Family Medicine; PCP Family Medicine; Visit Provider Internal Medicine
DX: I82.622 Acute embolism and thrombosis of deep veins of left upper extremity (principal); J44.9 Chronic obstructive pulmonary disease, unspecified; E66.9 Obesity, unspecified; E78.5 Hyperlipidemia, unspecified; E87.6 Hypokalemia; I10 Essential (primary) hypertension; K21.9 Gastro-esophageal reflux disease without esophagitis; D64.9 Anemia, unspecified; Z68.31 Body mass index [BMI] 31.0-31.9, adult; Z86.711 Personal history of pulmonary embolism; Z86.718 Personal history of other venous thrombosis and embolism; I73.9 Peripheral vascular disease, unspecified
CPT/HCPCS: 36415; 71275; 80048; 80053; 82274; 82728; 83540; 83550; 83735; 85025; 85027; 87641; 93971; 94640; 99283; J7030; J7050; Q9967; A4216

== ENCOUNTER → 2018-09-29 08:09 | Outpatient (CLI) | payer BC, SELFPAY ==
[2018-09-15 15:53] VITALS: BMI 31.6
[2018-09-29 10:01] LABS: AST(SGOT) 16 U/L (15-37); Alanine Aminotransfer ALT/SGPT 20 U/L (16-61); Albumin, Serum 3.6 g/dL (3.2-5.0); Alkaline Phosphatase 124 U/L (45-117); Bilirubin, Direct 0.12 mg/dL (0.00-0.30); Cholesterol 139 mg/dL (200); Globulin 3.4 g/dL (2.2-4.2); High Density Lipoprotein 48 mg/dL; Triglycerides 109 mg/dL; Very Low Density Lipoprotein 22 mg/dL (5-40)
== END ==
PROVIDERS: Family Provider Family Medicine; PCP Family Medicine; Referring Provider Nurse Practitioner Family; Visit Provider Nurse Practitioner Family
DX: E78.5 Hyperlipidemia, unspecified (principal)
CPT/HCPCS: 36415; 80061; 80076

== ENCOUNTER 2018-10-18 20:18 | Emergency (ER) | payer BC, SELFPAY ==
[2018-09-15 15:53] VITALS: BMI 31.6
[2018-10-18 20:19] VITALS: BP 142/72; PULSE 83; RESP 16; TEMP 36.9; O2SAT 100; BMI 32.5
[2018-10-18 20:57] VITALS: O2SAT 97
--- NOTE | 2018-10-18 21:12 | RAD_ITS ---
STUDY: X-RAY CHEST REASON FOR EXAM: Male, 58 years old. Cough TECHNIQUE: PA and lateral views of the chest. COMPARISON: None. FINDINGS: The lungs are clear and expanded. There is no demonstrated pleural abnormality. Normal size heart. Normal mediastinum and phiolmena. Normal visualized pulmonary arteries. Normal visualized aortic arch and descending thoracic aorta. There are diffuse degenerative changes of the visualized thoracic spine. Normal visualized ribs, clavicles, and shoulders. There is no demonstrated abnormality of the visualized soft tissue structures of the upper abdomen. RAD/Chest PA and Lateral IMPRESSION: No airspace consolidation or pleural effusion. Electronically Signed: Don Jose MD at 22:06 EST , Service support ,
[2018-10-18] MEDS: Ipratropium/Albuterol Sulfate 3 ML AMPUL.NEB INHALATION (21:18)
[2018-10-18 21:22] VITALS: BP 125/64; PULSE 76; RESP 23; TEMP 37.1; O2SAT 94
[2018-10-18 21:31] VITALS: PULSE 83; RESP 18
[2018-10-18 22:00] VITALS: BP 128/73; PULSE 68; RESP 24; TEMP 37; O2SAT 95
--- NOTE | 2018-10-18 22:50 | ED.DCSUM_ITS ---
- ER Visit Summary Date of Service: 10/18/18 Chief Complaint: [] History of Present Illness: The patient is a 58 M [] Physical Examination: [] Test Results: [] Emergency Department Course and Treatment: [] Treatment Plan: [] Disposition: [] Impression: [] This note was generated with [employer]marks dictation software. It may contain incorrect words, spelling, and punctuation that were not noted in review of the chart prior to signing ED Disposition - Plan for ED Patient: Disposition: Home or Assisted Living Instructions: ED Upper Resp Infec Abx Tx Prescriptions: Azithromycin [Zithromax] 250 mg PO DAILY #4 tablet Referrals: Arnulfo Garcia III, MD [Primary Care Provider] - 1 Week
[2018-10-18] MEDS: Azithromycin 250 MG Tablet 500 MG PO (22:56)
[2018-10-18 22:57] VITALS: BP 126/94; PULSE 66; RESP 18; O2SAT 95
--- NOTE | 2018-10-19 00:41 | ED.VISSUMM ---
- ER Visit Summary Date of Service: 10/19/18 Chief Complaint: Short of breath, cough History of Present Illness: The patient is a 58 M who is on Levaquin for sinusitis. Patient is states he has had increased shortness of breath and cough over the past 2 days. He states his been using his rescue inhaler every 2-3 hours. Patient has 1 day of Levaquin remaining and 3 days of prednisone. Past history is significant for asthma, high cholesterol, hypertension, reflux disease, DVT/PE, aspiration pneumonia. Patient is currently on Xarelto. Physical Examination: Vital signs are unremarkable. Patient sitting upright in bed no acute distress. He is nontoxic appearing. Head neck examination is unremarkable. Heart is regular rate and rhythm. Lungs sounds are slightly diminished throughout, but overall good air movement and no wheezing noted. Abdomen is soft nontender. Test Results: Two-view chest x-ray shows no focal airspace consolidation or pleural effusion. Emergency Department Course and Treatment: Patient is given a DuoNeb treatment here. On repeat evaluation he does feel improved. We discussed the possibility of this all being viral in nature. With him worsening the past 2 days in spite of Levaquin we also discussed the possibility of an atypical bacteria causing his recent worsening. He will be treated with a course of Zithromax, first dose given here. Treatment Plan: [] Disposition: Discharge Impression: Bronchitis This note was generated with [employer] dictation software. It may contain incorrect words, spelling, and punctuation that were not noted in review of the chart prior to signing ED Disposition - Plan for ED Patient: Disposition: Home or Assisted Living Instructions: ED Upper Resp Infec Abx Tx Prescriptions: Azithromycin [Zithromax] 250 mg PO DAILY #4 tablet Referrals: Arnulfo Garcia III, MD [Primary Care Provider] - 1 Week
== END 2018-10-18 22:57 | disposition home or self-care (01) ==
PROVIDERS: Emergency Provider Emergency Medicine; Family Provider Family Medicine; PCP Family Medicine
DX: J40 Bronchitis, not specified as acute or chronic (principal); J32.9 Chronic sinusitis, unspecified; Z86.718 Personal history of other venous thrombosis and embolism; Z86.711 Personal history of pulmonary embolism; Z79.2 Long term (current) use of antibiotics; Z79.52 Long term (current) use of systemic steroids; Z79.02 Long term (current) use of antithrombotics/antiplatelets
CPT/HCPCS: 71046; 94640; 99283

== ENCOUNTER → 2018-12-22 | Outpatient (CLI) | payer BC, SELFPAY ==
[2018-12-22 12:02] VITALS: BMI 32.5
--- NOTE | 2018-12-22 14:09 | VDLE_ITS ---
Reason For Study: LEG PAIN RIGHT LEFT GSV is normal. CFV is compressible, spontaneous, phasic, CFV is compressible, spontaneous, phasic, competent, and demonstrates normal competent and demonstrates normal augmentation. augmentation. FV is compressible, spontaneous, phasic, competent and demonstrates normal augmentation. POP V is compressible, spontaneous, phasic, competent and demonstrates normal augmentation. T/P Trunk is compressible. PTV is compressible. RT PerV is compressible. Procedure Exam performed in department. A preliminary report was called and/or faxed to Simran Finch. Interpretation Summary There is no evidence of right lower extremity deep vein thrombosis. Right greater saphenous vein appears patent and compressible segmentally. Normal flow patterns left common femoral vein. Ordering Physician: Marisa Finch Referring Physician: Marisa Finch Performed By: Mary Nance RVT
== END | disposition home or self-care (01) ==
PROVIDERS: Family Provider Family Medicine; PCP Family Medicine; Referring Provider Nurse Practitioner Family; Visit Provider Nurse Practitioner Family
DX: M79.604 Pain in right leg (principal); Z86.718 Personal history of other venous thrombosis and embolism
CPT/HCPCS: 93971

== ENCOUNTER → 2019-03-24 | Outpatient (CLI) | payer BC, SELFPAY ==
[2019-03-10 07:37] VITALS: BMI 32.8
[2019-03-24 09:20] LABS: Absolute Lymphocyte Count 1.59 X10^3/uL (0.83-4.51); Absolute Neutrophil Count 3.7 X10^3/uL (2.0-7.7); Basophil# 0.06 X10^3/uL; Eosinophil# 0.23 X10^3/uL; Eosinophils% 3.8 % (0-5); Hematocrit 42.7 % (40-54); Hemoglobin 14.2 g/dL (13.0-16.5); Lymphocyte # 1.59 X10^3/ul (4.0); Lymphocyte % 26.3 % (19-41); Mean Corp Hgb Conc 33.3 g/dL (32-36); Mean Corpuscular Hgb 31.1 pg (27.0-32.0); Mean Corpuscular Volume 93.4 fL (80-94); Mean Platelet Vol. 8.6 fl (6.2-12.0); Monocyte# 0.44 X10^3/uL; Monocyte% 7.3 % (0-10); NRBC Flagged by Analyzer 0 % (0-5); Neutrophil # 3.71 X10^3/uL (2.7-7.7); Neutrophil % 61.4 % (47-70); Platelet Count 324 K/mm3 (150-450); RBC Distribution Width CV 11.9 % (11.6-14.6); Red Blood Count 4.57 M/mm3 (4.6-6.2)
[2019-03-24 09:27] LABS: AST(SGOT) 19 U/L (15-37); Alanine Aminotransfer ALT/SGPT 27 U/L (16-61); Albumin, Serum 3.9 g/dL (3.2-5.0); Alkaline Phosphatase 141 U/L (45-117); Bilirubin, Direct 0.22 mg/dL (0.00-0.30); Cholesterol 166 mg/dL (200); Globulin 3.2 g/dL (2.2-4.2); High Density Lipoprotein 46 mg/dL; Protein, Total 7.1 g/dL (6.4-8.2); Triglycerides 93 mg/dL; Very Low Density Lipoprotein 19 mg/dL (5-40)
== END | disposition home or self-care (01) ==
LOC: PAVLAB 08:49
PROVIDERS: Nurse Practitioner Acute Care; Nurse Practitioner Family; Family Provider Family Medicine; PCP Family Medicine; Referring Provider Internal Medicine Critical Care Medicine; Visit Provider Internal Medicine Critical Care Medicine
DX: J45.50 Severe persistent asthma, uncomplicated (principal); E78.5 Hyperlipidemia, unspecified
CPT/HCPCS: 36415; 80061; 80076; 85025

== ENCOUNTER 2019-04-03 18:35 | Emergency (ER) | payer BC, SELFPAY ==
[2019-04-03 18:35] VITALS: BMI 33.2
[2019-04-03 18:36] VITALS: BP 141/69; PULSE 73; RESP 18; TEMP 36.6; O2SAT 99; BMI 31.2
--- NOTE | 2019-04-03 20:02 | EKG12_ITS ---
Test Reason : Blood Pressure : / mmHG Vent. Rate : 069 BPM Atrial Rate : 069 BPM P-R Int : 140 ms QRS Dur : 086 ms QT Int : 418 ms P-R-T Axes : 028 013 042 degrees QTc Int : 447 ms Normal sinus rhythm Normal ECG Confirmed by TORSTEN HOANG, ROSA MARIA ([id number]), editor school photograph SONAM SALAZAR ([id number]) on 04/06/2019 11:47:45 AM Referred By: DC Confirmed By:ROSA MARIA SARMIENTO MD
--- NOTE | 2019-04-03 20:02 | CT_ITS ---
STUDY: CTA CHEST REASON FOR EXAM: Male, 58 years old. History of pulmonary embolus, positive Leiden factor RADIATION DOSAGE (If Supplied By Facility): CTDIvol = ( 13.67 ) mGy, DLP = ( 541.88 ) mGycm TECHNIQUE: The examination was performed with the intravenous administration of 100ML IV Isovue 370. Post-processing of the angiographic images was performed, with multiplanar reformation and 3D reconstruction. Individualized dose optimization techniques were used for this CT. COMPARISON: September 02, 2018 FINDINGS: Normal enhancement of the main pulmonary artery and right and left pulmonary arteries. Normal enhancement of the bilateral peripheral pulmonary arteries. There is no demonstrated pulmonary embolism. Normal thoracic aorta and visualized great vessels. There is no demonstrated aortic dissection. Normal heart and pericardium. Normal mediastinum. Normal hilar regions. Normal visualized trachea and bronchi. The lungs are well expanded. No evidence for acute infiltration. Tiny calcified granuloma in right lower lobe. Normal pleura. Postop change status post left mastectomy and axillary resection Dorsal spine demonstrates spondylosis Postop changes at the gastroesophageal junction. Small hiatal hernia is present Gallbladder has been removed surgically. CT/CTA Chest W/WO Contrast IMPRESSION: No acute abnormalities. Specifically no evidence for pulmonary embolus aortic aneurysm, periaortic leak or dissection Other findings as above Electronically Signed: Naldo Arroyo MD at 21:32 EDT , Service support ,
--- NOTE | 2019-04-03 20:02 | CT_ITS ---
STUDY: CT BRAIN WITHOUT CONTRAST REASON FOR EXAM: Male, 58 years old. Posttraumatic syncope RADIATION DOSAGE (If Supplied By Facility): CTDIvol = ( 44.99 ) mGy, DLP = ( 812.98 ) mGycm TECHNIQUE: Transaxial CT imaging of the brain was performed without administration of intravenous contrast material. Individualized dose optimization techniques were used for this CT. COMPARISON: September 04, 2010 FINDINGS: Normal soft tissue structures. Normal calvarium. Normal size ventricles and extra-axial spaces for the patient's age. Normal white matter tracts of the cerebral hemispheres. Normal basal ganglia and thalami. Normal brainstem. Normal cerebellum. There is no intracranial hemorrhage. There are no findings of an acute ischemic infarction. Normal visualized paranasal sinuses. No significant change since prior exam CT/Brain/Head without Contrast IMPRESSION: Normal unenhanced CT scan of the brain. Electronically Signed: Naldo Arroyo MD at 21:27 EDT , Service support ,
[2019-04-03 20:11] VITALS: O2SAT 96
[2019-04-03 20:17] LABS: Absolute Lymphocyte Count 1.29 X10^3/uL (0.83-4.51); Absolute Neutrophil Count 6.7 X10^3/uL (2.0-7.7); Basophil# 0.03 X10^3/uL; Basophil% 0.3 % (0-1); Eosinophil# 0.01 X10^3/uL; Eosinophils% 0.1 % (0-5); Hematocrit 42.7 % (40-54); Hemoglobin 14.5 g/dL (13.0-16.5); Lymphocyte # 1.29 X10^3/ul (4.0); Lymphocyte % 14.8 % (19-41); Mean Corpuscular Hgb 31.3 pg (27.0-32.0); Mean Corpuscular Volume 92.2 fL (80-94); Mean Platelet Vol. 8.3 fl (6.2-12.0); Monocyte# 0.65 X10^3/uL; Monocyte% 7.5 % (0-10); NRBC Flagged by Analyzer 0 % (0-5); Neutrophil # 6.71 X10^3/uL (2.7-7.7); Neutrophil % 77.1 % (47-70); Platelet Count 364 K/mm3 (150-450); RBC Distribution Width CV 11.7 % (11.6-14.6); RBC Distribution Width SD 39.6 fl (35.1-43.9); Red Blood Count 4.63 M/mm3 (4.6-6.2); White Blood Count 8.7 K/mm3 (4.4-11.0)
[2019-04-03 20:24] VITALS: BP 134/82; PULSE 70; RESP 18; O2SAT 97
[2019-04-03 20:25] LABS: Prothrombin Time (Protime)PT. 13.2 SECONDS (11.7-14.9)
[2019-04-03 20:26] LABS: Partial Thromboplast Time 29.7 Seconds (24.1-36.2)
[2019-04-03 20:34] LABS: Anion Gap 3 (5-15); BUN 8 mg/dL (7-18); BUN/Creat Ratio 7.8 RATIO (10-20); Calcium,Total 9.1 mg/dL (8.5-10.1); Chloride 106 mmol/L (98-107); Creatinine, Serum 1.02 mg/dL (0.70-1.30); EST Glomerular Filtration Rate 79 mL/min (>60); Est Glom Filt Rate - Afr Amer 96 mL/min (>60); Estimated Creatinine Clearance 83.05 ml/min; Glucose 102 mg/dL (74-106); Potassium 3.9 mmol/L (3.5-5.1); Sodium Level 140 mmol/L (136-145)
--- NOTE | 2019-04-03 21:10 | RAD_ITS ---
STUDY: X-RAY - RIGHT SHOULDER REASON FOR EXAM: Male, 58 years old. Posttraumatic pain TECHNIQUE: 3 view(s) of the shoulder. COMPARISON: None. FINDINGS: Narrowed glenohumeral articulation and subacromial space. Arthrosis of the acromioclavicular joint. Normal acromion. Normal humeral head and visualized proximal humerus. The soft tissue structures are unremarkable. Normal visualized pulmonary apex. RAD/Shoulder min 2 Views IMPRESSION: Degenerative changes. No evidence for acute fracture Electronically Signed: Naldo Arroyo MD at 21:33 EDT , Service support ,
[2019-04-03 21:24] VITALS: BP 144/77; PULSE 67; RESP 15; O2SAT 99
[2019-04-03 22:04] VITALS: BP 125/78; PULSE 69; RESP 21; O2SAT 95
--- NOTE | 2019-04-03 22:15 | ED.DCSUM_ITS ---
- ER Visit Summary Date of Service: 04/03/19 Chief Complaint: Syncope History of Present Illness: The patient is a 58 M who was at work. He had a syncopal episode. He had been coughing. He has a history of cough syncope. He was not having chest pain or shortness of breath. Patient is having upcoming va scular surgery and has not been on his normal blood thinners. He does have a history of venous thromboembolism. He hit his head and has an abrasion to his occipital scalp. He also hit his right shoulder and sustained an abrasion to his right lower leg. Physical Examination: Afebrile and vital signs unremarkable. He has a occipital abrasion and small hematoma. Otherwise head and neck atraumatic. Heart regular. Lungs clear. Skin appears unremarkable except for a right aguayo abrasion. He has right shoulder tenderness. Neurovascular intact distally. Moves all extremities. Test Results: EKG showed sinus rhythm at a rate of 69. CBC, BMP, troponin unremarkable. Shoulder x-ray unremarkable. Brain CT showed no acute findings. CTA chest showed no evidence of PE or other acute findings. Emergency Department Course and Treatment: Patient's syncopal episode was likely a result of coughing. He has a history of this. His work-up here was unremarkable. I did not find any explanation otherwise for his syncope. He did not sustain any significant trauma from the fall. He was treated with bacitrac in for his abrasions. He will follow-up with his vascular surgeon on Saturday to see if he can continue with surgery as planned. Treatment Plan: As above Disposition: Discharge Impression: 1. Syncope 2. Right shoulder pain 3. Abrasions This note was generated with [employer] dictation software. It may contain incorrect words, spelling, and punctuation that were not noted in review of the chart prior to signing ED Disposition - Plan for ED Patient: Referrals: Arnulfo Garcia III, MD [Primary Care Provider] -
--- NOTE | 2019-04-03 22:18 | ED.DEP ---
ED Disposition - Plan for ED Patient: Instructions: SYNCOPE, Unk Cause Referrals: Arnulfo Garcia III, MD [Primary Care Provider] -
[2019-04-03] MEDS: BACITRACIN 15 GM Tube 1 APPLIC TOPICAL (22:36)
[2019-04-03 22:47] VITALS: BP 144/81; PULSE 73; RESP 18; O2SAT 94
== END 2019-04-03 22:48 | disposition home or self-care (01) ==
LOC: ED 20:03
PROVIDERS: Emergency Provider Emergency Medicine; Family Provider Family Medicine; PCP Family Medicine
DX: R55 Syncope and collapse (principal); M25.511 Pain in right shoulder; S00.01XA Abrasion of scalp, initial encounter; S80.811A Abrasion, right lower leg, initial encounter; K21.9 Gastro-esophageal reflux disease without esophagitis; I10 Essential (primary) hypertension; E78.00 Pure hypercholesterolemia, unspecified; Z86.711 Personal history of pulmonary embolism; Z79.899 Other long term (current) drug therapy; Z86.718 Personal history of other venous thrombosis and embolism; W18.30XA Fall on same level, unspecified, initial encounter; Y93.89 Activity, other specified; Y92.89 Other specified places as the place of occurrence of the external cause; Y99.8 Other external cause status
CPT/HCPCS: 70450; 71275; 73030; 80048; 84484; 85025; 85610; 85730; 93005; 99285; Q9967; A4216

== ENCOUNTER → 2019-08-03 08:59 | Outpatient (CLI) | payer BC, SELFPAY ==
[2019-08-03 08:04] VITALS: BMI 33.9
== END ==
PROVIDERS: Family Provider Family Medicine; PCP Family Medicine; Referring Provider Nurse Practitioner Acute Care; Visit Provider Nurse Practitioner Acute Care
DX: R05 Cough (principal)
CPT/HCPCS: 87070; 87205; 87449; 87633

== ENCOUNTER → 2019-11-12 | Outpatient (CLI) | payer BC, SELFPAY ==
[2019-06-29 08:18] VITALS: BMI 34.0
[2019-10-22 16:04] VITALS: BMI 32.9
[2019-11-12 10:12] LABS: Absolute Lymphocyte Count 1.51 X10^3/uL (0.83-4.51); Absolute Neutrophil Count 7.6 X10^3/uL (2.0-7.7); Basophil# 0.02 X10^3/uL; Basophil% 0.2 % (0-1); Hemoglobin 12.4 g/dL (13.0-16.5); Lymphocyte # 1.51 X10^3/ul (4.0); Lymphocyte % 15.2 % (19-41); Mean Corp Hgb Conc 32.6 g/dL (32-36); Mean Corpuscular Hgb 29.6 pg (27.0-32.0); Mean Corpuscular Volume 90.7 fL (80-94); Mean Platelet Vol. 8.9 fl (6.2-12.0); Monocyte# 0.76 X10^3/uL; Monocyte% 7.6 % (0-10); NRBC Flagged by Analyzer 0 % (0-5); Neutrophil # 7.61 X10^3/uL (2.7-7.7); Neutrophil % 76.6 % (47-70); Platelet Count 409 K/mm3 (150-450); RBC Distribution Width CV 13.2 % (11.6-14.6); RBC Distribution Width SD 43.1 fl (35.1-43.9); Red Blood Count 4.19 M/mm3 (4.6-6.2); White Blood Count 9.9 K/mm3 (4.4-11.0)
[2019-11-12 10:22] LABS: AST(SGOT) 13 U/L (15-37); Alanine Aminotransfer ALT/SGPT 21 U/L (16-61); Albumin, Serum 3.6 g/dL (3.2-5.0); Alkaline Phosphatase 118 U/L (45-117); Bilirubin, Direct 0.26 mg/dL (0.00-0.30); Cholesterol 139 mg/dL (200); Globulin 3.3 g/dL (2.2-4.2); High Density Lipoprotein 44 mg/dL; Protein, Total 6.9 g/dL (6.4-8.2); Triglycerides 94 mg/dL; Very Low Density Lipoprotein 19 mg/dL (5-40)
== END | disposition home or self-care (01) ==
PROVIDERS: Internal Medicine Cardiovascular Disease; Family Provider Family Medicine; PCP Family Medicine; Referring Provider Internal Medicine Critical Care Medicine; Visit Provider Internal Medicine Critical Care Medicine
DX: J45.50 Severe persistent asthma, uncomplicated (principal); E78.00 Pure hypercholesterolemia, unspecified
CPT/HCPCS: 36415; 80061; 80076; 85025

== ENCOUNTER → 2019-12-25 | Outpatient (CLI) | payer BC, SELFPAY ==
[2019-10-22 16:04] VITALS: BMI 32.9
--- NOTE | 2019-12-25 07:47 | VDLE_ITS ---
Reason For Study: swelling RIGHT LEFT CFV is compressible, spontaneous, phasic, CFV is compressible, spontaneous, phasic, competent and demonstrates normal competent, and demonstrates normal augmentation. augmentation. FV is compressible, spontaneous, phasic, FV is compressible, spontaneous, phasic, competent and demonstrates normal competent and demonstrates normal augmentation. augmentation. POP V is compressible, spontaneous, phasic, POP V is compressible, spontaneous, phasic, competent and demonstrates normal competent and demonstrates normal augmentation. augmentation. T/P Trunk is compressible. T/P Trunk is compressible. PTV is compressible. PTV is compressible. RT PerV is compressible. LT PerV is compressible. GSV is harvested. GSV is harvested. Procedure Exam performed in department. The exam was diagnostic. A preliminary report was called and/or faxed to Nancy Reinoso. Interpretation Summary No evidence for acute deep venous thrombosis bilateral lower extremities. Surgically removed bilateral great saphenous veins. Ordering Physician: Nancy Reinoso Performed By: Thien Morrison RVT
== END | disposition home or self-care (01) ==
PROVIDERS: PCP Family Medicine; Referring Provider Physician Assistant Medical; Visit Provider Physician Assistant Medical
DX: R60.0 Localized edema (principal); D68.51 Activated protein C resistance; Z86.711 Personal history of pulmonary embolism; Z86.718 Personal history of other venous thrombosis and embolism
CPT/HCPCS: 93970

== ENCOUNTER → 2020-03-15 | Outpatient (CLI) | payer BC, SELFPAY ==
[2020-03-15 13:03] VITALS: BMI 32.9
== END | disposition home or self-care (01) ==
LOC: PSN 14:02
PROVIDERS: PCP Family Medicine; Referring Provider Internal Medicine Critical Care Medicine; Visit Provider Internal Medicine Critical Care Medicine
DX: J47.9 Bronchiectasis, uncomplicated (principal)
CPT/HCPCS: 94667

== ENCOUNTER → 2020-04-12 18:17 | Outpatient (CLI) | payer BC, SELFPAY ==
[2020-03-24 13:56] VITALS: BMI 32.8
== END ==
PROVIDERS: PCP Family Medicine; Referring Provider Internal Medicine Critical Care Medicine; Visit Provider Internal Medicine Critical Care Medicine
DX: J45.50 Severe persistent asthma, uncomplicated (principal)
CPT/HCPCS: 87635; U0003

== ENCOUNTER → 2021-03-22 09:31 | Outpatient (CLI) | payer BC, SELFPAY ==
[2021-03-17 14:32] VITALS: BMI 32.2
[2021-03-22 11:02] LABS: AST(SGOT) 18 U/L (15-37); Alanine Aminotransfer ALT/SGPT 30 U/L (16-61); Albumin, Serum 3.9 g/dL (3.2-5.0); Alkaline Phosphatase 117 U/L (45-117); Bilirubin, Direct 0.17 mg/dL (0.00-0.30); Cholesterol 143 mg/dL (200); Globulin 3.2 g/dL (2.2-4.2); High Density Lipoprotein 54 mg/dL; Protein, Total 7.1 g/dL (6.4-8.2); Triglycerides 82 mg/dL; Very Low Density Lipoprotein 16 mg/dL (5-40)
== END ==
PROVIDERS: PCP Nurse Practitioner Family; Referring Provider Internal Medicine Cardiovascular Disease; Visit Provider Internal Medicine Cardiovascular Disease
DX: E78.00 Pure hypercholesterolemia, unspecified (principal)
CPT/HCPCS: 36415; 80061; 80076

== ENCOUNTER 2021-05-02 14:19 | Emergency (ER) | payer OTHER, SELFPAY ==
[2021-05-02 14:20] VITALS: BP 156/78; PULSE 77; RESP 16; TEMP 36.3; O2SAT 100; BMI 32.5
--- NOTE | 2021-05-02 14:46 | VDUE_ITS ---
Reason For Study: Pain Right Proximal Right jugular vein is spontaneous, widely patent, phasic, with no intraluminal echogenicity noted. Right subclavian vein is spontaneous, widely patent, phasic, with no intraluminal echogenicity noted. Right Lower Arm Right radial vein is compressible. Right ulnar vein is compressible. Right Arm Right axillary vein is spontaneous, patent, phasic, competent, compressible and demonstrates augmentation. Right brachial vein is compressible. Right cephalic vein is compressible. Acute superficial vein thrombosis is noted in the right Basilic vein from mid forearm to antecube. Patient Safety Prelim to Steven. VL/Venous Duplex US, Unilateral Interpretation Summary No evidence for acute deep venous thrombosis right upper extremity Superficial thrombophlebitis right basilic vein from the mid forearm to the ant ecubital space Patent and compressible right cephalic vein Ordering Physician: Karthik Harris Referring Physician: Boone Heaton Performed By: Ana Maria Ba RVT ?
--- NOTE | 2021-05-02 14:51 | EDS_ITS ---
HPI History of Present Illness Chief Complaint: Upper Extremity Injury Narrative Narrative: Patient presenting with right forearm pain is current for DVT. Patient states he has a history of DVT and PE in the past. He was acutely treated with Eliquis. He followed up with Dr. Whaley who did blood testing and states there is no autogenic component to this. He is unsure why he had a DVT/PE. He states that DVT was in his left upper extremity and his right long. Patient states that last week he got his shingles vaccine and thought maybe he was having an allergic reaction. He went to [facility] where they did blood work and this was normal. He states he was not treated for any allergic reaction. Patient states he has been fine except for what they put an IV in the right forearm and now he has pain and swelling in the right forearm. He is concerned he is developed a DVT. [facility] Medical History Acute left lower lobe peripheral PE Aspiration pneumonia of right lower lobe Asthma Asthma, severe persistent Benign essential hypertension Cellulitis of left upper extremity Chronic cough Deep vein thrombosis (DVT) of left upper extremity Factor 5 Leiden mutation, heterozygous GERD (gastroesophageal reflux disease) GERD (gastroesophageal reflux disease) History of pulmonary embolus (PE) History of venous thromboembolism Hypersomnia Normochromic normocytic anemia Partially treated aspiration pneumonia Peripheral vascular disease PND (paroxysmal nocturnal dyspnea) 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 Pulmonary embolism on left Right thigh pain Syncope and collapse Home Medications atorvastatin 20 mg PO QHS 06/17/15 [History Last Taken 08/31/18] multivitamin with folic acid 1 tab PO DAILY 06/17/15 [History Last Taken 09/01/18] omeprazole 40 mg PO DAILY 09/01/18 [History Last Taken 09/01/18] acetaminophen 325 mg capsule 325 mg PO ONCE PRN 02/23/20 [History Last Taken Unknown] benralizumab 30 mg/mL subcutaneous syringe 30 mg SC Q8W ml 04/27/20 [History Last Taken Unknown] albuterol sulfate 90 mcg/actuation breath activated powder inhaler 2 inh INHALATION Q6H PRN #1 ea 08/31/20 [Rx Last Taken Unknown] montelukast 10 mg tablet 10 mg PO QPM #30 tab 10/25/20 [Rx Last Taken Unknown] fluticasone 500 mcg-salmeterol 50 mcg/dose blistr powdr for inhalation 1 inh INHALATION BID #60 each 11/29/20 [Rx Last Taken Unknown] amlodipine 5 mg tablet 5 mg PO DAILY #90 tab 03/17/21 [Rx Last Taken Unknown] chlorpheniramine maleate 12 mg tablet,extended release 12 mg PO Q12H 03/17/21 [History Last Taken Unknown] Allergy/AdvReac Type Severity Reaction Status Date / Time amoxicillin [From Augmentin] Allergy Intermediate Rash/hives Verified 05/02/21 14:19 clavulanic acid Allergy Intermediate Rash/hives Verified 05/02/21 14:19 [From Augmentin] povidone-iodine AdvReac Severe Hives Verified 05/02/21 14:19 [From Betadine] soap [From Betadine] AdvReac Severe Hives Verified 05/02/21 14:19 budesonide [From Symbicort] AdvReac Intermediate Severe Verified 05/02/21 14:19 stomach cramps, diarrhea and upset stomach. formoterol [From Symbicort] AdvReac Intermediate Severe Verified 05/02/21 14:19 stomach cramps, diarrhea and upset stomach. adhesive tape AdvReac Rash Verified 05/02/21 14:19 benzoin AdvReac Rash Verified 05/02/21 14:19 doxycycline calcium AdvReac constipatio Verified 05/02/21 14:19 [From Vibramycin] n doxycycline hyclate AdvReac constpation Verified 05/02/21 14:19 [From Vibramycin] doxycycline monohydrate AdvReac constipatio Verified 05/02/21 14:19 [From Vibramycin] n hydrocodone bitartrate AdvReac constipatio Verified 05/02/21 14:19 [From Vicodin] n tetracycline [Tetracycline] AdvReac constipatio Verified 05/02/21 14:19 n Family History Brother Hypertension Surgical History History of cholecystectomy History of knee surgery History of sinus surgery History of vasectomy History of vein stripping Hx of appendectomy Social History Smoking Status: Never smoker second hand exposure: No alcohol intake: never substance use type: does not use caffeine: Yes Type: carbonated beverages Number of servings: 4 ROS ROS ED Constitutional Constitutional ED: Denies chills or sweats Eyes Eyes: Denies blurry vision or diplopia ENT ENT ED: Denies rhinorrhea or sore throat Cardiovascular Cardiovascular: Denies chest pain, palpitations or racing heartbeat Respiratory/Chest Respiratory/Chest: Denies cough or dyspnea Gastrointestinal Gastrointestinal: Denies abdominal pain, nausea or vomiting Genitourinary Genitourinary ED: Denies dysuria or hematuria Musculoskeletal Musculoskeletal: Reports other Details: Right forearm pain Integumentary Denies Abrasions or rash Neurologic Neurologic: Denies headache(s) or paresthesias EXAM Physical Exam Const Vital Signs: 05/02/21 14:20 Temperature 97.3 F L Temperature Source Temporal Pulse Rate 77 Respiratory Rate 16 Blood Pressure 156/78 H Blood Pressure Mean 104 Pulse Ox 100 Oxygen Delivery Method Room Air General Appearance ED: Negative for pallor HEENT Reports normocephalic, head/scalp atraumatic and moist mucous membranes Eyes PERRL and EOMs intact bilaterally Neck no lymphadenopathy Resp normal respiratory effort and clear to auscultation bilaterally Auscultation: Negative for rales, rhonchi or wheezes Cardio regular rate and regular rhythm GI normal to inspection, nondistended, normoactive bowel sounds Narrative: Deferred Extremity Extremity Narrative: Tenderness to palpation over the volar right forearm on the medial aspect. There are no signs of cellulitis, infection. Compartments are soft. Right hand neurovascular intact brisk refill to all 5 fingers. General Extremety ED: Yes tenderness Neuro oriented x3, CN's II-XII intact bilaterally and no sensory deficits noted Sensorium / Orientation: alert Motor Exam: strength 5/5 throughout Psych mental status grossly normal Attitude: No agitated Skin no rashes or lesions noted and no wounds General Skin Exam: Negative for jaundice or pallor Lesions: no lesions Rashes: no rashes MDM MDM MDM Narrative Medical decision making narrative: Patient presenting with right forearm pain is concerned for DVT. Duplex of the right upper extremity shows a superficial thrombophlebitis in the right basilic vein from mid forearm to the antecubital fossa. Patient counseled on findings. He is counseled to use aspirin and ibuprofen. I did review the medical record it does appear that he has factor V Leiden which would be a risk factor for blood clots. He is to follow-up to ensure resolution with his primary care doctor. If it is worsening symptoms or develops chest pain or shortness of breath he should return to the ED. Impression: 1. Superficial thrombophlebitis Discharge Plan Triage Chief Complaint: Upper Extremity Injury ED Provider: Karthik Harris Dx/Rx/DC Orders Instructions: ED Thrombophlebitis, Superficial Prescriptions: No Action acetaminophen [Tylenol] 325 mg capsule 325 mg PO ONCE PRN (Reason: Pain Or Fever) RF: 0 chlorpheniramine maleate 12 mg tablet extended release 12 mg PO Q12H RF: 0 amlodipine 5 mg tablet 5 mg PO DAILY Qty: 90 RF: 3 atorvastatin 20 MG tablet 20 mg PO QHS RF: 0 multivitamin with folic acid 1 TABLET tablet 1 tab PO DAILY RF: 0 omeprazole 40 MG capsule,delayed release(DR/EC) 40 mg PO DAILY RF: 0 benralizumab 30 mg/mL syringe 30 mg SC Q8W RF: 0 albuterol sulfate 90 mcg/actuation aerosol powdr breath activated 2 inh INHALATION Q6H PRN (Reason: shortness of breath or wheezing) Qty: 1 RF: 6 montelukast 10 mg tablet 10 mg PO QPM Qty: 30 RF: 3 fluticasone propion-salmeterol [Wixela Inhub] 500-50 mcg/dose blister with device 1 inh INHALATION BID Qty: 60 RF: 3 Primary Care Provider: Boone Heaton NP Referrals: Boone Heaton NP, [employer] [Primary Care Provider] - Disposition Disposition: Home, Self Care
== END 2021-05-02 15:54 | disposition home or self-care (01) ==
LOC: ED 15:42
PROVIDERS: Emergency Provider Student in an Organized Health Care Education/Training Program; PCP Nurse Practitioner Family
DX: I80.8 Phlebitis and thrombophlebitis of other sites (principal); J45.50 Severe persistent asthma, uncomplicated; I10 Essential (primary) hypertension; K21.9 Gastro-esophageal reflux disease without esophagitis; D68.51 Activated protein C resistance; Z86.718 Personal history of other venous thrombosis and embolism; Z86.711 Personal history of pulmonary embolism; Z79.51 Long term (current) use of inhaled steroids; Z79.899 Other long term (current) drug therapy
CPT/HCPCS: 93971; 99282

== ENCOUNTER 2021-05-08 14:39 | Emergency (ER) | payer OTHER, SELFPAY ==
[2021-05-08 14:40] VITALS: BP 126/70; PULSE 82; RESP 20; TEMP 37.4; O2SAT 97; BMI 32.8
[2021-05-08 15:56] VITALS: BP 140/74; PULSE 76; RESP 20; TEMP 36.7; O2SAT 93; O2SAT 94
--- NOTE | 2021-05-08 15:56 | RAD_ITS ---
STUDY: X-RAY CHEST REASON FOR EXAM: Male, 60 years old. cough TECHNIQUE: Single AP portable view of the chest. COMPARISON: October 18, 2018 FINDINGS: The lungs are clear and expanded. There is no demonstrated pleural abnormality. Normal size heart. Normal mediastinum and philomena. Normal visualized pulmonary arteries. Normal visualized aortic arch and descending thoracic aorta. There are diffuse degenerative changes of the visualized thoracic spine. Normal visualized ribs, clavicles, and shoulders. There is no demonstrated abnormality of the visualized soft tissue structures of the upper abdomen. RAD/Chest 1 View (Portable) IMPRESSION: No acute process Electronically Signed: Tr Snow MD at 17:23 EDT , Service support ,
--- NOTE | 2021-05-08 16:09 | ED.VIS.DYS ---
HPI History of Present Illness Chief Complaint: Cough Informant: patient and spouse/S.O. Onset/Context/Timing Onset: Days Context: gradual Timing: Continuous Current Severity: Mild Maximum Severity: Mild Worsened by: Not Worsened By Nothing Relieved by: Not Relieved By Nothing Associated Symptoms sore throat Chest Pain: Positive for None Narrative Narrative: 60-year-old male history of cough syncope and hypertension high cholesterol. Patient's has been coughing for the last 5 to 6 days. He was seen at another hospital earlier in the week developed superficial thrombophlebitis in his right arm from the IV. Splenic cough with clear white phlegm. No fever. No hemoptysis. He was Covid vaccinated in December and December. PE Risk Factors: Negative for Cancer, OCP + Smoking + > 35, Prior DVT or PE, Recent immobilization, Recent surgery and Recent travel Prior similar symptoms: Yes Recent Illness/Hospitalization: No [facility] Medical History (Updated 05/08/21 @ 17:[address] Shaq James MD) Acute left lower lobe peripheral PE Aspiration pneumonia of right lower lobe Asthma Asthma, severe persistent Benign essential hypertension Cellulitis of left upper extremity Chronic cough Deep vein thrombosis (DVT) of left upper extremity Factor 5 Leiden mutation, heterozygous GERD (gastroesophageal reflux disease) GERD (gastroesophageal reflux disease) History of pulmonary embolus (PE) History of venous thromboembolism Hypersomnia Normochromic normocytic anemia Partially treated aspiration pneumonia Peripheral vascular disease PND (paroxysmal nocturnal dyspnea) 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 Pulmonary embolism on left Right thigh pain Syncope and collapse Home Medications atorvastatin 20 mg PO QHS 06/17/15 [History Last Taken 08/31/18] multivitamin with folic acid 1 tab PO DAILY 06/17/15 [History Last Taken 09/01/18] omeprazole 40 mg PO DAILY 09/01/18 [History Last Taken 09/01/18] acetaminophen 325 mg capsule 325 mg PO ONCE PRN 02/23/20 [History Last Taken Unknown] benralizumab 30 mg/mL subcutaneous syringe 30 mg SC Q8W ml 04/27/20 [History Last Taken Unknown] albuterol sulfate 90 mcg/actuation breath activated powder inhaler 2 inh INHALATION Q6H PRN #1 ea 08/31/20 [Rx Last Taken Unknown] montelukast 10 mg tablet 10 mg PO QPM #30 tab 10/25/20 [Rx Last Taken Unknown] fluticasone 500 mcg-salmeterol 50 mcg/dose blistr powdr for inhalation 1 inh INHALATION BID #60 each 11/29/20 [Rx Last Taken Unknown] amlodipine 5 mg tablet 5 mg PO DAILY #90 tab 03/17/21 [Rx Last Taken Unknown] chlorpheniramine maleate 12 mg tablet,extended release 12 mg PO Q12H 03/17/21 [History Last Taken Unknown] Allergy/AdvReac Type Severity Reaction Status Date / Time amoxicillin [From Augmentin] Allergy Intermediate Rash/hives Verified 05/08/21 15:56 clavulanic acid Allergy Intermediate Rash/hives Verified 05/08/21 15:56 [From Augmentin] povidone-iodine AdvReac Severe Hives Verified 05/08/21 15:56 [From Betadine] soap [From Betadine] AdvReac Severe Hives Verified 05/08/21 15:56 budesonide [From Symbicort] AdvReac Intermediate Severe Verified 05/08/21 15:56 stomach cramps, diarrhea and upset stomach. formoterol [From Symbicort] AdvReac Intermediate Severe Verified 05/08/21 15:56 stomach cramps, diarrhea and upset stomach. adhesive tape AdvReac Rash Verified 05/08/21 15:56 benzoin AdvReac Rash Verified 05/08/21 15:56 doxycycline calcium AdvReac constipatio Verified 05/08/21 15:56 [From Vibramycin] n doxycycline hyclate AdvReac constpation Verified 05/08/21 15:56 [From Vibramycin] doxycycline monohydrate AdvReac constipatio Verified 05/08/21 15:56 [From Vibramycin] n hydrocodone bitartrate AdvReac constipatio Verified 05/08/21 15:56 [From Vicodin] n tetracycline [Tetracycline] AdvReac constipatio Verified 05/08/21 15:56 n Family History Brother Hypertension Surgical History History of cholecystectomy History of knee surgery History of sinus surgery History of vasectomy History of vein stripping Hx of appendectomy Social History Smoking Status: Never smoker second hand exposure: No alcohol intake: never substance use type: does not use caffeine: Yes Type: carbonated beverages Number of servings: 4 ROS ROS ED ROS Narrative Denies recent illness. Other than the cough. Constitutional Constitutional ED: Denies chills or fever(s) Eyes Eyes: Denies change in vision ENT ENT ED: Reports sore throat; Denies ear pain Cardiovascular Cardiovascular: Denies chest pain or palpitations Respiratory/Chest Respiratory/Chest: Reports cough, dyspnea and sputum Gastrointestinal Gastrointestinal: Denies abdominal pain, constipation, diarrhea, melena, nausea or vomiting Genitourinary Genitourinary ED: Denies dysuria or hematuria Musculoskeletal Musculoskeletal: Denies myalgias Integumentary Denies rash Neurologic Neurologic: Denies headache(s) Psychiatric Psychiatric: Denies depression Endocrine Endocrinology: Denies polyuria Hematologic/Lymphatic Hematologic/Lymphatic: Denies easy bruising Allergic/Immunologic Allergic/Immunologic ED: Denies urticaria EXAM Physical Exam Narrative Exam Narrative: 1-year-old male no acute distress. Vital signs stable afebrile does not look septic toxic. H EENT exam unremarkable. Neck nontender no lymphadenopathy. No JVD. Lungs dry cough no rales, rhonchi or wheezing. Equal symmetrical. Heart regular rhythm rate about 80 no murmur. Abdomen soft nontender. Patient moving all 4 extremities. Calves nontender without edema or cords. Back nontender. Neurologically awake and alert. No focal motor deficits. Const Vital Signs: 05/08/21 14:40 05/08/21 15:56 Temperature 99.3 F H 98.1 F Temperature Source Temporal Oral Pulse Rate 82 76 Respiratory Rate 20 H 20 H Respiratory Effort Short of Breath Labored Respiratory Depth Normal Respiratory Pattern Tachypnea Blood Pressure 126/70 H 140/74 H Blood Pressure Mean 88 96 Pulse Ox 97 94 Oxygen Delivery Method Room Air Room Air Positive well nourished and well developed; Negative for obese, cachectic, contractures or unkempt General Appearance ED: well developed and NAD; Negative for unkempt, cachectic, contractures or pallor Nutritional Appearance: Negative for cachectic or obese HEENT Reports moist mucous membranes atraumatic; Negative for trauma or tenderness Eyes PERRL and EOMs intact bilaterally Neck no lymphadenopathy, supple, no meningeal signs and no JVD General: Negative for tenderness Resp normal respiratory effort and clear to auscultation bilaterally Auscultation: Negative for rales, rhonchi or wheezes Cardio regular rate, regular rhythm, S1 normal heart sound, S2 normal heart sound and no murmurs GI non-tender, non-distended and no masses Auscultation: normoactive bowel sounds Palpation: soft; Negative for tender, guarding or rebound tenderness present Back/Spine no CVA tenderness and normal to inspection General Back: Negative for CVA tenderness Extremity normal to inspection General Extremety ED: Negative for edema or tenderness General Extremity: Negative for edema Neuro oriented x3 Sensorium / Orientation: alert, oriented to person, oriented to place and oriented to time; Negative for confused, lethargic or stuporous Motor Exam: strength 5/5 throughout Psych mental status grossly normal Appearance: Negative for unkempt Thought Process: normal thought process Skin no wounds General Skin Exam: Negative for jaundice or pallor Lesions: no lesions Rashes: no rashes MDM MDM MDM Narrative Medical decision making narrative: 60-year-old male with a cough. Was Covid vaccination in December and December. Covid test and chest x-ray. Repeat exam patient doing well at 5:03 PM will be discharged home. I did go over test results with him family. Lab Data Attestation: I reviewed the patient's lab results. Lab results narrative: COVID-19 rapid test negative. Chest x-ray negative. Radiography Chest X-Ray - ED: 1 View, Read by ED Physician, Normal, Heart, Lungs, Mediastinum, Bony Structures, No Acute Disease and Chronic Changes Diagnostic Testing: Single view chest x-ray no acute abnormality interpreted by myself. Discharge Plan Triage Chief Complaint: Cough ED Provider: Shaq James Dx/Rx/DC Orders Clinical Impression: URI, acute Instructions: ED URI, Viral, No Abx (Adult) Prescriptions: No Action acetaminophen [Tylenol] 325 mg capsule 325 mg PO ONCE PRN (Reason: Pain Or Fever) RF: 0 chlorpheniramine maleate 12 mg tablet extended release 12 mg PO Q12H RF: 0 amlodipine 5 mg tablet 5 mg PO DAILY Qty: 90 RF: 3 atorvastatin 20 MG tablet 20 mg PO QHS RF: 0 multivitamin with folic acid 1 TABLET tablet 1 tab PO DAILY RF: 0 omeprazole 40 MG capsule,delayed release(DR/EC) 40 mg PO DAILY RF: 0 benralizumab 30 mg/mL syringe 30 mg SC Q8W RF: 0 albuterol sulfate 90 mcg/actuation aerosol powdr breath activated 2 inh INHALATION Q6H PRN (Reason: shortness of breath or wheezing) Qty: 1 RF: 6 montelukast 10 mg tablet 10 mg PO QPM Qty: 30 RF: 3 fluticasone propion-salmeterol [Wixela Inhub] 500-50 mcg/dose blister with device 1 inh INHALATION BID Qty: 60 RF: 3 Primary Care Provider: Boone Heaton NP Referrals: Boone Heaton NP, [employer] W[employer]-[facility] [Primary Care Provider] - 1 Week if not improving Activity Restrictions/Additional Instructions: Plenty of fluids and rest. Follow-up if not improving. Disposition Disposition: Home, Self Care
[2021-05-08 17:15] VITALS: BP 135/70; PULSE 74; PULSE 78; RESP 16; RESP 19; TEMP 36.9; O2SAT 98
== END 2021-05-08 17:17 | disposition home or self-care (01) ==
PROVIDERS: Emergency Provider Emergency Medicine; PCP Nurse Practitioner Family
DX: J06.9 Acute upper respiratory infection, unspecified (principal); J45.50 Severe persistent asthma, uncomplicated; I10 Essential (primary) hypertension; K21.9 Gastro-esophageal reflux disease without esophagitis; I73.9 Peripheral vascular disease, unspecified; Z86.718 Personal history of other venous thrombosis and embolism; Z79.51 Long term (current) use of inhaled steroids; Z79.899 Other long term (current) drug therapy
CPT/HCPCS: 71045; 87426; 99282

== ENCOUNTER → 2021-08-07 | Outpatient (CLI) | payer OTHER, SELFPAY | END | disposition home or self-care (01) | LOC: LABSPEC 16:25 | PROVIDERS: PCP Nurse Practitioner Family; Visit Provider Otolaryngology | DX: J32.9 Chronic sinusitis, unspecified (principal) | CPT/HCPCS: 87070; 87205 ==

== ENCOUNTER 2021-10-12 14:44 | Outpatient (CLI) | payer OTHER, SELFPAY ==
[2021-10-12 15:18] LABS: Anion Gap 4 (5-15); BUN 5 mg/dL (7-18); BUN/Creat Ratio 6.4 RATIO (10-20); Calcium,Total 8.8 mg/dL (8.5-10.1); Chloride 110 mmol/L (98-107); Creatinine, Serum 0.78 mg/dL (0.70-1.30); EST Glomerular Filtration Rate 106 mL/min (>60); Est Glom Filt Rate - Afr Amer 129 mL/min (>60); Glucose 98 mg/dL (74-106); Potassium 3.4 mmol/L (3.5-5.1); Sodium Level 142 mmol/L (136-145)
== END 2021-10-12 23:59 | disposition home or self-care (01) ==
LOC: PAVLAB 14:46
PROVIDERS: Physician Assistant Medical; PCP Nurse Practitioner Family; Referring Provider Internal Medicine Cardiovascular Disease; Visit Provider Internal Medicine Cardiovascular Disease
DX: I10 Essential (primary) hypertension (principal)
CPT/HCPCS: 36415; 80048

== ENCOUNTER 2021-11-23 07:31 | Outpatient (CLI) | payer BC, SELFPAY ==
[2021-11-23 08:05] LABS: AST(SGOT) 17 U/L (15-37); Alanine Aminotransfer ALT/SGPT 22 U/L (16-61); Albumin, Serum 3.7 g/dL (3.2-5.0); Alkaline Phosphatase 105 U/L (45-117); Anion Gap 3 (5-15); BUN 8 mg/dL (7-18); BUN/Creat Ratio 8.7 RATIO (10-20); Calcium,Total 8.8 mg/dL (8.5-10.1); Chloride 110 mmol/L (98-107); Cholesterol 153 mg/dL (200); Creatinine, Serum 0.92 mg/dL (0.70-1.30); EST Glomerular Filtration Rate 89 mL/min (>60); Est Glom Filt Rate - Afr Amer 108 mL/min (>60); Glucose 98 mg/dL (74-106); High Density Lipoprotein 47 mg/dL; Potassium 3.8 mmol/L (3.5-5.1); Protein, Total 6.7 g/dL (6.4-8.2); Sodium Level 143 mmol/L (136-145); Triglycerides 101 mg/dL; Very Low Density Lipoprotein 20 mg/dL (5-40)
== END 2021-11-23 23:59 | disposition home or self-care (01) ==
LOC: PAVLAB 07:32
PROVIDERS: PCP Nurse Practitioner Family; Referring Provider Internal Medicine Cardiovascular Disease; Visit Provider Internal Medicine Cardiovascular Disease
DX: I10 Essential (primary) hypertension (principal); E78.00 Pure hypercholesterolemia, unspecified; E78.5 Hyperlipidemia, unspecified
CPT/HCPCS: 36415; 80048; 80061; 80076

== ENCOUNTER → 2022-03-29 | Outpatient (CLI) | payer OTHER, SELFPAY | END | disposition home or self-care (01) | LOC: LABSPEC 15:09 | PROVIDERS: PCP Nurse Practitioner Family; Visit Provider Otolaryngology | DX: J32.9 Chronic sinusitis, unspecified (principal) | CPT/HCPCS: 87070; 87205 ==

== ENCOUNTER 2023-06-26 19:51 | Emergency (ER) | payer OTHER, SELFPAY ==
[2023-06-26 19:51] VITALS: BP 120/59; PULSE 60; RESP 18; TEMP 36.4; O2SAT 98; BMI 34.8
[2023-06-26 20:51] VITALS: O2SAT 98
[2023-06-26 20:59] LABS: Absolute Lymphocyte Count 1.59 X10^3/uL (0.83-4.51); Absolute Neutrophil Count 12.3 X10^3/uL (2.0-7.7); Basophil# 0.09 X10^3/uL; Basophil% 0.6 % (0-1); Hematocrit 37.6 % (40-54); Hemoglobin 12.7 g/dL (13.0-16.5); Lymphocyte # 1.59 X10^3/ul (0.83-4.51); Lymphocyte % 10.5 % (19-41); Mean Corp Hgb Conc 33.8 g/dL (32-36); Mean Corpuscular Hgb 30.8 pg (27.0-32.0); Mean Platelet Vol. 8.5 fl (6.2-12.0); Monocyte# 1.07 X10^3/uL; Monocyte% 7.1 % (0-10); NRBC Flagged by Analyzer 0 % (0-5); Neutrophil # 12.26 X10^3/uL (2.7-7.7); Neutrophil % 81.3 % (47-70); Platelet Count 374 K/mm3 (150-450); RBC Distribution Width CV 11.8 % (11.6-14.6); RBC Distribution Width SD 39.3 fl (35.1-43.9); Red Blood Count 4.13 M/mm3 (4.6-6.2); White Blood Count 15.1 K/mm3 (4.4-11.0)
--- NOTE | 2023-06-26 21:02 | EDS_ITS ---
HPI History of Present Illness Chief Complaint: Syncope Narrative Narrative: 63-year-old male presenting with syncope. He states he has cough syncope and coughed tonight and fainted. He states he was try to get to a chair before he did. He states he fainted and hit his head on the cabinet has mild headache. No visual complaints. No nausea or vomiting. No neck pain. His states he was unconscious for a few seconds. No loss of bladder or bowel control. He woke up and he was awake alert. No postictal state. No seizure PFSH PFSH Medical History Acute left lower lobe peripheral PE Aspiration pneumonia of right lower lobe Asthma Asthma, severe persistent Benign essential hypertension Cellulitis of left upper extremity Chronic cough Deep vein thrombosis (DVT) of left upper extremity Factor 5 Leiden mutation, heterozygous GERD (gastroesophageal reflux disease) GERD (gastroesophageal reflux disease) History of pulmonary embolus (PE) History of venous thromboembolism Hypersomnia Normochromic normocytic anemia Partially treated aspiration pneumonia Peripheral vascular disease PND (paroxysmal nocturnal dyspnea) 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 Pulmonary embolism on left Right thigh pain Syncope and collapse Home Medications atorvastatin 20 mg tablet 20 mg PO QHS Cholesterol 06/17/15 [History Last Taken 08/31/18] multivitamin with folic acid 400 mcg tablet 1 tab PO DAILY Supplement 06/17/15 [History Last Taken 09/01/18] omeprazole 40 mg capsule,delayed release 40 mg PO DAILY 09/01/18 [History Last Taken 09/01/18] acetaminophen 325 mg capsule (Tylenol) 325 mg PO ONCE PRN Pain Or Fever 02/23/20 [History Last Taken Unknown] albuterol sulfate 90 mcg/actuation breath activated powder inhaler 2 inh inhalation Q6H PRN shortness of breath or wheezing #1 ea 08/31/20 [Rx Last Taken Unknown] montelukast 10 mg tablet 10 mg PO QPM #30 tabs 10/25/20 [Rx Last Taken Unknown] dextromethorphan-guaifenesin 30 mg-600 mg tablet extended [id number] hr (Mucinex DM) 1 tab PO Q12H 10/31/22 [History Last Taken Unknown] benralizumab 30 mg/mL subcutaneous auto-injector (Fasenra Pen) 30 mg subcut Q8W #1 mL 01/23/23 [Rx Last Taken Unknown] fluticasone fur. 200 mcg-umeclid 62.5 mcg-vilant 25 mcg inhalat.powder (Trelegy Ellipta) 1 inh inhalation DAILY #60 ea 01/23/23 [Rx Last Taken Unknown] naproxen sodium 220 mg tablet (Aleve) 220 mg PO BID 01/23/23 [History Last Taken Unknown] amlodipine 10 mg tablet 10 mg PO BID #90 tabs 05/08/23 [Rx Last Taken Unknown] lisinopril 5 mg tablet 10 mg PO DAILY 05/08/23 [History Last Taken Unknown] Allergy/AdvReac Type Severity Reaction Status Date / Time amoxicillin [From Augmentin] Allergy Intermediate Rash/hives Verified 05/08/23 14:33 clavulanic acid Allergy Intermediate Rash/hives Verified 05/08/23 14:33 [From Augmentin] spironolactone Allergy Intermediate Rash and Verified 05/08/23 14:33 itching povidone-iodine AdvReac Severe Hives Verified 05/08/23 14:33 [From Betadine] soap [From Betadine] AdvReac Severe Hives Verified 05/08/23 14:33 budesonide [From Symbicort] AdvReac Intermediate Severe Verified 05/08/23 14:33 stomach cramps, diarrhea and upset stomach. formoterol [From Symbicort] AdvReac Intermediate Severe Verified 05/08/23 14:33 stomach cramps, diarrhea and upset stomach. losartan AdvReac Intermediate Persistent Verified 05/08/23 14:33 dry cough adhesive tape AdvReac Rash Verified 05/08/23 14:33 benzoin AdvReac Rash Verified 05/08/23 14:33 doxycycline calcium AdvReac constipatio Verified 05/08/23 14:33 [From Vibramycin] n doxycycline hyclate AdvReac constpation Verified 05/08/23 14:33 [From Vibramycin] doxycycline monohydrate AdvReac constipatio Verified 05/08/23 14:33 [From Vibramycin] n hydrocodone bitartrate AdvReac constipatio Verified 05/08/23 14:33 [From Vicodin] n tetracycline [Tetracycline] AdvReac constipatio Verified 05/08/23 14:33 n Family History Brother Hypertension Surgical History History of cholecystectomy History of knee surgery History of sinus surgery History of vasectomy History of vein stripping Hx of appendectomy Social History Smoking Status: Never smoker second hand exposure: No alcohol intake: never substance use type: does not use caffeine: Yes Type: carbonated beverages Number of servings: 4 ROS ROS ED Constitutional Constitutional ED: Denies chills, fever(s) or sweats Eyes Eyes: Denies blurry vision or change in vision ENT ENT ED: Denies ear pain or sore throat Cardiovascular Cardiovascular: Denies chest pain, palpitations or racing heartbeat Respiratory/Chest Respiratory/Chest: Denies cough, dyspnea or sputum Gastrointestinal Gastrointestinal: Denies abdominal pain, constipation, diarrhea, nausea or vomiting Genitourinary Genitourinary ED: Denies dysuria, hematuria or urinary frequency Musculoskeletal Musculoskeletal: Denies arthralgias, myalgias or neck pain Integumentary Denies abscess, Abrasions or rash Neurologic Neurologic: Denies headache(s), paresthesias or weakness Psychiatric Psychiatric: Denies anxiety, depression, suicidal ideation or suicidal thoughts Endocrine Endocrinology: Denies polydipsia or polyuria EXAM Physical Exam Const Vital Signs: 06/26/23 19:51 06/26/23 20:51 Temperature 97.5 F L Temperature Source Temporal Pulse Rate 60 Respiratory Rate 18 Blood Pressure 120/59 L Blood Pressure Mean 79 Pulse Ox 98 98 Oxygen Delivery Method Room Air Room Air Positive well nourished General Appearance ED: NAD; Negative for pallor HEENT Reports moist mucous membranes trauma Eyes PERRL and EOMs intact bilaterally Chest Wall inspection of chest normal Resp normal respiratory effort and clear to auscultation bilaterally Auscultation: Negative for rales, rhonchi or wheezes Cardio regular rate and regular rhythm GI normal to inspection, nondistended, normoactive bowel sounds Neuro oriented x3 and CN's II-XII intact bilaterally Sensorium / Orientation: alert Motor Exam: strength 5/5 throughout Psych mental status grossly normal Skin no rashes or lesions noted General Skin Exam: Negative for jaundice or pallor MDM MDM MDM Narrative Medical decision making narrative: Patient had a cough today and had an episode of syncope. He has a history of cough related syncope. He states he was trying to get to a chair but could not make it. He does have on the cabinet and then lost consciousness. Denies any chest pain or shortness of breath. He felt otherwise well prior to this. Differential includes intracranial hemorrhage, skull fracture, C-spine fracture, syncope, dysrhythmia, electrode normalities, dehydration, acute coronary syndrome. CBC will be obtained to assess white blood cell count, hemoglobin, platelets. BMP to assess renal function electrolytes. High-sensitivity troponin and EKG to assess for ischemia. Brain and cervical spine will be obtained due to hitting his head and falling to the ground. CBC shows white blood cell count of 15.1. I suspect this is reactive. Hemoglobin stable at 12.7. Platelets are normal at 374. Renal function and electrolytes within normal limits. High-sensitivity troponin is 6. EKG shows a sinus rhythm with ventricular rate of 60 bpm without sign of ischemic change or ectopy on my interpretation. Chest x-ray shows no acute process on my interpretation the radiologist services and agrees. BNP is 11.6. Brain, cervical spine interpreted as negative by the radiologist. Patient counseled negative work-up. I suspect he likely had an episode of syncope and he admits to having history of cough induced syncope. Feel he stable for discharge and he was able to ambulate in the emergency room with stable gait. Return precautions were discussed. Impression: 1. Syncope 2. leukocytosis Lab Data Attestation: I reviewed the patient's lab results. Labs: Laboratory Results - last 24 hr 06/26/23 20:50 WBC 15.1 H RBC 4.13 L Hgb 12.7 L Hct 37.6 L MCV 91.0 MCH 30.8 MCHC 33.8 RDW Std Deviation 39.3 RDW Coeff of Joanie 11.8 Plt Count 374 MPV 8.5 Immature Gran % (Auto) 0.500 Neut % (Auto) 81.3 H Lymph % (Auto) 10.5 L [place] % (Auto) 7.1 Eos % (Auto) 0.0 Baso % (Auto) 0.6 Absolute Neuts (auto) 12.3 H Absolute Lymphs (auto) 1.59 Nucleated RBC % 0 Sodium 138 Potassium 3.5 Chloride 103 Carbon Dioxide 31.0 Anion Gap 4 L BUN 14 Creatinine 1.26 Estim Creat Clear Calc 63.08 Est GFR (MDRD) Af Amer 74 Est GFR (MDRD) Non-Af 61 BUN/Creatinine Ratio 11.1 Glucose 135 H Calcium 8.9 Troponin I High Sens 6 B-Natriuretic Peptide 11.6 Radiography Diagnostic Testing: Clinical Impression(s) from Imaging Studies Brain CT 06/26/23 21:15 IMPRESSION: undefined Cervical Spine CT 06/26/23 21:15 IMPRESSION: undefined Chest X-Ray 06/26/23 21:24 IMPRESSION: No acute pulmonary disease. Electronically Signed: Chi Andrews MD at 22:04 EDT , Discharge Plan Triage Chief Complaint: Syncope ED Provider: Karthik Harris Dx/Rx/DC Orders Instructions: ED Fainting, Vagal Reaction Prescriptions: No Action acetaminophen [Tylenol] 325 mg capsule 325 mg PO ONCE PRN (Reason: Pain Or Fever) naproxen sodium [Aleve] 220 mg tablet 220 mg PO BID Trelegy Ellipta 200-62.5-25 mcg blister with device 1 inh inhalation DAILY Qty: 60 12RF Fasenra Pen 30 mg/mL auto-injector 30 mg subcut Q8W Qty: 1 6RF Mucinex DM 30-600 mg tablet extended release 12 hr 1 tab PO Q12H lisinopril 5 mg tablet 10 mg PO DAILY amlodipine 10 mg tablet 10 mg PO BID Qty: 90 3RF atorvastatin 20 MG tablet 20 mg PO QHS Patient Comments: cholesterol multivitamin with folic acid 1 TABLET tablet 1 tab PO DAILY Patient Comments: supplement omeprazole 40 MG capsule,delayed release(DR/EC) 40 mg PO DAILY albuterol sulfate 90 mcg/actuation aerosol powdr breath activated 2 inh INHALATION Q6H PRN (Reason: shortness of breath or wheezing) Qty: 1 6RF montelukast 10 mg tablet 10 mg PO QPM Qty: 30 3RF Primary Care Provider: Shad Llamas Referrals: Shad Llamas MD [Primary Care Provider] - Disposition Disposition: Home, Self Care
--- NOTE | 2023-06-26 21:15 | CT_ITS ---
EXAM: CT brain without contrast HISTORY: headache TECHNIQUE: No intravenous contrast. A radiation dose optimization technique was used for this scan. COMPARISON: Head CT April 03, 2019. LIMITATIONS: None. BRAIN: Normal burks/white matter differentiation. VENTRICLES: No hydrocephalus. EXTRA-AXIAL SPACES: No acute hemorrhage. CALVARIUM/SKULL BASE: No acute fracture. FACE/SINUSES: No significant abnormality. SOFT TISSUES: Normal. OTHER: None. CONCLUSION: No acute intracranial abnormality. Electronically Signed: Chi Andrews MD at 21:41 EDT , CT/Brain/Head without Contrast IMPRESSION: undefined
--- NOTE | 2023-06-26 21:15 | CT_ITS ---
EXAM: CT cervical spine. HISTORY: trauma TECHNIQUE: No intravenous contrast. A radiation dose optimization technique was used for this scan. COMPARISON: None. LIMITATIONS: None. FRACTURES: None. SPINAL CANAL: Mild central canal stenosis at C4-5 and C5-6. DEGENERATIVE CHANGE: Moderate degenerative change including large anterior osteophytes at C4-5, C5-6 and C6-7. ALIGNMENT: Loss of the cervical lordosis is likely secondary to patient positioning or muscle spasm. SOFT TISSUE: Normal. OTHER: None. CONCLUSION: No acute fracture. Electronically Signed: Chi Andrews MD at 21:48 EDT , CT/Spine Cervical without Contras IMPRESSION: undefined
--- NOTE | 2023-06-26 21:24 | RAD_ITS ---
INDICATION: chest pain EXAMINATION: Frontal view of the chest COMPARISON: Chest x-ray May 08, 2021. FINDINGS: Frontal view of the chest was obtained. The cardiac silhouette is not enlarged. No confluent airspace disease. No pneumothorax. No acute fracture identified. RAD/Chest 1 View (Portable) IMPRESSION: No acute pulmonary disease. Electronically Signed: Chi Andrews MD at 22:04 EDT ,
[2023-06-26 21:28] LABS: BNP,B-Type NATRIURETIC PEPTIDE 11.6 pg/mL (0-100)
[2023-06-26 21:35] LABS: Anion Gap 4 (5-15); BUN 14 mg/dL (7-18); BUN/Creat Ratio 11.1 RATIO (10-20); Calcium,Total 8.9 mg/dL (8.5-10.1); Chloride 103 mmol/L (98-107); Creatinine, Serum 1.26 mg/dL (0.70-1.30); EST Glomerular Filtration Rate 61 mL/min (>60); Est Glom Filt Rate - Afr Amer 74 mL/min (>60); Estimated Creatinine Clearance 63.08 ml/min; Glucose 135 mg/dL (74-106); Potassium 3.5 mmol/L (3.5-5.1); Sodium Level 138 mmol/L (136-145); Troponin-I HS (w/2H Reflex) 6 pg/mL (3.0-78.0)
[2023-06-26 22:56] LABS: Reflex Troponin-HS? (from REC) Y
[2023-06-26 23:39] VITALS: RESP 16
== END 2023-06-26 23:40 | disposition home or self-care (01) ==
PROVIDERS: Emergency Provider Student in an Organized Health Care Education/Training Program; PCP Family Medicine; Visit Provider Student in an Organized Health Care Education/Training Program
DX: R55 Syncope and collapse (principal); I10 Essential (primary) hypertension; D72.829 Elevated white blood cell count, unspecified; J45.909 Unspecified asthma, uncomplicated; R05.9 Cough, unspecified; W22.09XA Striking against other stationary object, initial encounter; W19.XXXA Unspecified fall, initial encounter
CPT/HCPCS: 70450; 71045; 72125; 80048; 83880; 84484; 85025; 93005; 99285

== ENCOUNTER → 2023-09-06 | Outpatient (CLI) | payer OTHER, SELFPAY ==
--- OUTSIDE RECORDS SUMMARY | 2023-09-06 12:48 | XMS RPT_ITS | CCD ---
Author Name Unknown Address [id number] [place] [address] Organization [facility] Care Team Providers Care 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 Converter Helper Name Role Phone Arnulfo Garcia Primary Care Provider [phone] CARROL NUNEZ Attending Unavailab BOONE Cr Primary Care Unavailable Malgorzata Sanchez Primary Care Provider Florina PAVING INSPECTOR.CARLENE ORONA Daniel Primary Care Provider Florina PAVING INSPECTOR.YEYO, [place] CONCEPCION Primary Care Provider Paula Liu MD Primary Care Provider Paula Liu MD Primary Care Provider Paula Liu MD Primary Care Provider Paula Liu MD Primary Care Provider PAULA LIU Referring Unavailab PAULA Jernigan Primary Care Unavailab JOSE Ochoa Attending Unavailable PAULA LIU Attending Unavailab PAULA Jernigan Primary Care Unavailab PAULA Jernigan Primary Care Unavailab PAULA Jernigan Primary Care Unavailab PAULA Jernigan Primary Care Unavailab PAULA Jernigan Referring Unavailab PAULA Jernigan Attending Unavailab PAULA Jernigan Primary Care Unavailab PAULA Jernigan Attending Unavailab PAULA Jernigan Primary Care Unavailab PAULA Jernigan Referring Unavailab PAULA Jernigan Primary Care Unavailab PAULA Jernigan Primary Care Unavailab jes BOYER, JOSE Attending Unavailable PAULA LIU Referring Unavailab PAULA Jernigan Primary Care Unavailab PAULA Jernigan Attending Unavailab PAULA Jernigan Primary Care Unavailab PAULA Jernigan Referring Unavailab PAULA Jernigan Primary Care Unavailab jes HoweMalgorzata pendleton Primary Care Provider GALE VIOLET Referring Unavailable SARITAMALGORZATA PENDLETON Primary Care Unavailable GALE, VIOLET Attending Unavailable MALGORZATA SANCHEZ Primary Care Unavailable Allergies Allergy Classification Reported Allergen(s) Allergy Type Date of Onset Reaction(s) Facility (5 sources) Acetaminophen / oxyCODONE Drug Allergy 6 [place], [place] (20 sources) Doxycycline; Translations: [DOXYCYCLINE CALCIUM] Drug Allergy 6 Other (See Comments), GI Upset [place] (5 sources) Iodine Drug Allergy 6 Hives [place] (20 sources) Latex; Translations: [LATEX] Propensity to adverse reactions to drug 3 Rash, Itching [place] (20 sources) Propofol Drug Allergy 5 Other: See Comments [place] (5 sources) Tetracyclines & Related Propensity to adverse reactions to drug 6 Other (See Comments) [place] (3 sources) oxyCODONE Drug Allergy 6 [place] (2 sources) Adhesive Tape Propensity to adverse reactions to drug 6 [facility] (2 sources) benzoin resin Drug Allergy 0 [facility] (2 sources) Clavulanate Drug Allergy 0 [facility] (20 sources) Acetaminophen / HYDROcodone; Translations: [HYDROCODONE-ACET AMINOPHEN] Drug Allergy 1 Other: See Comments [facility] (20 sources) Adhesive Tape; Translations: [ADHESIVE TAPE (ROSINS)] Propensity to adverse reactions 0 [facility] Work Phone: (20 sources) Loratadine; Translations: [LORATADINE] Drug Allergy 9 Intolerance [facility] Work Phone: (20 sources) Naproxen; Translations: [NAPROXEN] Drug Allergy 6 GI Upset [facility] Work Phone: (20 sources) Simvastatin; Translations: [SIMVASTATIN] Drug Allergy 3 Other: See Comments [facility] (20 sources) Tetracycline; Translations: [TETRACYCLINE] Drug Allergy 6 GI Upset [facility] Work Phone: (8 sources) Spironolactone; Translations: [SPIRONOLACTONE] Drug Allergy 2 Rash [facility] Work Phone: (1 source) Propofol; Translations: [PROPOFOL (PF)] Drug Allergy 5 [facility] Repository Medications Current Medications Medication Drug Class(es) Dates Sig (Normalized) Sig (Original) acetaminophen 325 mg / HYDROcodone bitartrate 5 mg oral tablet (1 source) Opioid Agonist Start: 2019 End: 05-22-2019 take 1 tablet by mouth every six hours as needed for pain, then take 1 tablet by mouth as needed for pain HYDROcodone-acetami nophen (NORCO) 5-325 MG per tablet Indications: Varicose veins of left lower extremity with pain Take 1 tablet by mouth every 6 hours as needed for Pain for up to 3 days. Intended supply: 3 days. Take lowest dose possible to manage pain 10 tablet 0 2019 05/22/2019 Active ALPRAZolam 0.25 mg disintegrating oral tablet (1 source) Benzodiazepine Start: 2019 ALPRAZolam (NIRAVAM) dissolvable tablet 0.25 mg amoxicillin 500 mg oral capsule (2 sources) Penicillin-class Antibacterial Start: 06-24-2021 take 2 capsules by mouth three times daily amoxicillin (AMOXIL) 500 MG capsule take 2 capsules by mouth three times a day for 5 days 0 06/24/2021 Active amoxicillin 875 mg / clavulanate 125 mg oral tablet (1 source) Penicillin-class Antibacterial Start: 04-29-2022 End: 05-06-2022 take 1 tablet by mouth twice daily amoxicillin-clavula lali acid (AUGMENTIN) 875-125 mg per tablet Indications: Sinobronchitis Take 1 tablet by mouth twice daily for 7 days. 14 tablet 0 04/29/2022 05/06/2022 Active Completed/Discontinued Medications Medication Drug Class(es) Dates Sig (Normalized) Sig (Original) acetaminophen 500 mg oral tablet (1 source) Start: 2019 End: 2019 acetaminophen (TYLENOL) tablet 1,000 mg [id number] 200 actuat albuterol 0.09 mg/actuat metered dose inhaler (20 sources) beta2-Adrenergic Agonist Start: 10-28-2018 take 2 puff(s) by inhalation every four hours as needed for wheezing PROAIR HFA 90 mcg/actuation inhaler Inhale 2 Puffs as instructed every 4 hours as needed for Wheezing/Shortness of Breath. 1 Inhaler 11 10/28/2018 Active Problems Active Problems Problem Classification Problem Date Documented Da te Episodic/Chronic Abdominal pain (2 sources) Right upper quadrant pain; Translations: [Right upper quadrant pain] Episodic Asthma (20 sources) Asthma; Translations: [Uncomplicated moderate persistent asthma] Onset: 8 08-01-2018 Chronic Coronary atherosclerosis and other heart disease (20 sources) Coronary arteriosclerosis; Translations: [Atherosclerotic heart disease of [place] coronary artery without angina pectoris] Onset: 2 02-23-2019 Chronic Disorders of lipid metabolism (20 sources) Hyperlipidemia; Translations: [Hyperlipidemia, unspecified] Onset: 3 Resolved: 0 02-23-2019 Chronic Esophageal disorders (20 sources) Gastroesophageal reflux disease; Translations: [Gastro-esophageal reflux disease without esophagitis] Onset: 6 Resolved: 0 08-01-2018 Chronic Essential hypertension (20 sources) Hypertensive disorder; Translations: [Benign essential hypertension] Onset: 0 Resolved: 0 08-01-2018 Chronic Immunizations and screening for infectious disease (2 sources) Suspected disease caused by 2019-nCoV; Translations: [Suspected COVID-19 virus infection] Episodic Nutritional deficiencies (9 sources) Moderate protein energy malnutrition; Translations: [Moderate protein-calorie malnutrition] Onset: 8 08-09-2018 Chronic Other connective tissue disease (1 source) Pain in right lower limb; Translations: [Leg pain, posterior, right] Episodic Other nutritional; endocrine; and metabolic disorders (20 sources) Obese class I; Translations: [Obesity, unspecified] Onset: 1 04-26-2021 Chronic Other nutritional; endocrine; and metabolic disorders (1 source) Obesity, unspecified; Translations: [Obesity, Class I, BMI 30-34.9] Onset: 1 Chronic Other upper respiratory disease (20 sources) Allergic rhinitis; Translations: [Allergic rhinitis, unspecified] Onset: 2 02-23-2019 Chronic Other upper respiratory infections (1 source) Chronic sinusitis; Translations: [Chronic sinusitis, unspecified] Chronic Peripheral and visceral atherosclerosis (20 sources) Peripheral vascular disease; Translations: [Peripheral vascular disease, unspecified] 04-26-2021 Chronic Phlebitis; thrombophlebitis and thromboembolism (3 sources) Acute deep venous thrombosis of left axillary vein; Translations: [DVT of axillary vein, acute left] Onset: 9 02-23-2019 Residual codes; unclassified (3 sources) Edema of left lower limb; Translations: [Localized edema] Episodic Residual codes; unclassified (2 sources) Localized edema; Translations: [Localized edema] Onset: 3 Episodic Skin and subcutaneous tissue infections (1 source) Paronychia of toe of left foot; Translations: [Cellulitis of left toe] Episodic Spondylosis; intervertebral disc disorders; other back problems (20 sources) Degeneration of lumbar intervertebral disc; Translations: [Other intervertebral disc degeneration, lumbar region] Onset: 0 08-05-2020 Chronic Varicose veins of lower extremity (5 sources) Pain co-occurrent and due to varicose veins of left leg; Translations: [Pain co-occurrent and due to varicose veins of right leg] Onset: 6 08-07-2016 Past or Other Problems Problem Classification Problem Date Documented Da te Episodic/Chronic Fluid and electrolyte disorders (9 sources) Hypokalemia; Translations: [Hypokalemia] Onset: 08-09-2018 08-09-2018 Episodic Intestinal obstruction without hernia (18 sources) Acute intestinal obstruction; Translations: [Small bowel obstruction] Onset: 07-31-2018 08-01-2018 Episodic Other aftercare (20 sources) Long-term current use of anticoagulant; 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] Onset: 09-23-2017 02-23-2019 Episodic Other connective tissue disease (9 sources) Pain in left lower limb; Translations: [Pain in left leg] Onset: 08-20-2016 08-20-2016 Episodic Other gastrointestinal disorders (9 sources) Adhesion of intestine; Translations: [Peritoneal adhesions (postprocedural) (postinfection)] Onset: 08-19-2018 08-19-2018 Episodic Other lower respiratory disease (20 sources) Tussive syncope; Translations: [Cough syncope] Onset: 12-19-2015 08-20-2016 Episodic Other non-traumatic joint disorders (2 sources) Pain in right knee; Translations: [Pain in joint, lower leg] Onset: 03-15-2022 Episodic Other skin disorders (20 sources) Actinic keratosis; Translations: [Actinic keratosis] Onset: 09-11-2018 02-23-2019 Episodic Other upper respiratory infections (2 sources) Viral upper respiratory tract infection; Translations: [Acute upper respiratory infection, unspecified] Onset: 06-04-2022 Episodic Phlebitis; thrombophlebitis and thromboembolism (20 sources) Acute deep venous thrombosis of left axillary vein; Translations: [Acute embolism and thrombosis of left axillary vein] Onset: 09-11-2018 02-23-2019 Episodic Pulmonary heart disease (20 sources) Pulmonary embolism; Translations: [Other pulmonary embolism without acute cor pulmonale] Onset: 09-23-2017 02-23-2019 Episodic Residual codes; unclassified (9 sources) History of fundoplication; Translations: [Other specified postprocedural states] Onset: 03-17-2018 03-17-2018 Episodic Spondylosis; intervertebral disc disorders; other back problems (20 sources) Lumbar radiculopathy; Translations: [Radiculopathy, lumbar region] Onset: 08-05-2020 08-05-2020 Episodic Varicose veins of lower extremity (14 sources) Pain co-occurrent and due to varicose veins of left leg; Translations: [Varicose veins of left lower extremity with pain] Onset: 08-07-2016 Episodic Results Test Name Value Interpretation Reference Range Facil ity Vital Signs Date Time Vital Sign Value Performing Clinician Faci lity 01-09-2023 16:49-0400 Body weight 115.67 kg Jose Podlogar PAVING INSPECTOR.GOSPEL SINGER Work Phone: [facility] 01-09-2023 16:49-0400 Diastolic blood pressure 64 mm[Hg] Jose Podlogar PAVING INSPECTOR.GOSPEL SINGER Work Phone: [facility] 01-09-2023 16:49-0400 Heart rate 61 /min Jose Podlogar PAVING INSPECTOR.GOSPEL SINGER Work Phone: [facility] 01-09-2023 16:49-0400 Respiratory rate 16 /min Jose Podlogar PAVING INSPECTOR.GOSPEL SINGER Work Phone: [facility] 01-09-2023 16:49-0400 SaO2% (BldA) [Mass fraction] 98 % Jose Podlogar PAVING INSPECTOR.GOSPEL SINGER Work Phone: [facility] 01-09-2023 16:49-0400 Systolic blood pressure 132 mm[Hg] Jose Podlogar PAVING INSPECTOR.GOSPEL SINGER Work Phone: [facility] 06-27-2022 15:35-0400 Body weight 110.95 kg Paula Liu MD Work Phone: [facility] 06-27-2022 15:35-0400 Diastolic blood pressure 74 mm[Hg] Paula Liu MD Work Phone: [facility] 06-27-2022 15:35-0400 Heart rate 68 /min Paula Liu MD Work Phone: [facility] 06-27-2022 15:35-0400 Respiratory rate 16 /min Paula Liu MD Work Phone: [facility] 06-27-2022 15:35-0400 Systolic blood pressure 136 mm[Hg] Paula Liu MD Work Phone: [facility] 06-04-2022 16:18-0400 Body temperature 97.39 [degF] Paula Liu MD Work Phone: [facility] 06-04-2022 16:18-0400 Body weight 112.04 kg Paula Liu MD Work Phone: [facility] 06-04-2022 16:18-0400 Diastolic blood pressure 82 mm[Hg] Paula Liu MD Work Phone: [facility] 06-04-2022 16:18-0400 Heart rate 82 /min Paula Liu MD Work Phone: [facility] 06-04-2022 16:18-0400 Respiratory rate 16 /min Paula Liu MD Work Phone: [facility] 06-04-2022 16:18-0400 SaO2% (BldA) [Mass fraction] 97 % Paula Liu MD Work Phone: [facility] 06-04-2022 16:18-0400 Systolic blood pressure 140 mm[Hg] Paula Liu MD Work Phone: [facility] 04-29-2022 10:41-0400 Body temperature 97.39 [degF] Wesly Partha PAVING INSPECTOR.GOSPEL SINGER Work Phone: [facility] 04-29-2022 10:41-0400 Body weight 111.4 kg Wesly Partha PAVING INSPECTOR.GOSPEL SINGER Work Phone: [facility] 04-29-2022 10:41-0400 Diastolic blood pressure 82 mm[Hg] Wesly Partha PAVING INSPECTOR.GOSPEL SINGER Work Phone: [facility] 04-29-2022 10:41-0400 Heart rate 61 /min Wesly Partha PAVING INSPECTOR.GOSPEL SINGER Work Phone: [facility] 04-29-2022 10:41-0400 Respiratory rate 16 /min Wesly Partha PAVING INSPECTOR.GOSPEL SINGER Work Phone: [facility] 04-29-2022 10:41-0400 SaO2% (BldA) [Mass fraction] 99 % Wesly Partha PAVING INSPECTOR.GOSPEL SINGER Work Phone: [facility] 04-29-2022 10:41-0400 Systolic blood pressure 136 mm[Hg] Wesly Partha PAVING INSPECTOR.GOSPEL SINGER Work Phone: [facility] 03-15-2022 16:23-0400 Body weight 111.68 kg Paula Liu MD Work Phone: [facility] 03-15-2022 16:23-0400 Diastolic blood pressure 76 mm[Hg] Paula Liu MD Work Phone: [facility] 03-15-2022 16:23-0400 Heart rate 65 /min Paula Liu MD Work Phone: [facility] 03-15-2022 16:23-0400 Respiratory rate 16 /min Paula Liu MD Work Phone: [facility] 03-15-2022 16:23-0400 SaO2% (BldA) [Mass fraction] 97 % Paula Liu MD Work Phone: [facility] 03-15-2022 16:23-0400 Systolic blood pressure 132 mm[Hg] Paula Liu MD Work Phone: [facility] 01-17-2022 13:24-0400 Diastolic blood pressure 74 mm[Hg] Mi Nurse Work Phone: [facility] 01-17-2022 13:24-0400 Heart rate 76 /min Mi Nurse Work Phone: [facility] 01-17-2022 13:24-0400 Systolic blood pressure 130 mm[Hg] Mi Nurse Work Phone: [facility] 01-11-2022 19:05-0400 Body temperature 97.81 [degF] Myranda Dunn PAVING INSPECTOR.GOSPEL SINGER Work Phone: [facility] 01-11-2022 19:05-0400 Body weight 108.41 kg Myranda Dunn PAVING INSPECTOR.GOSPEL SINGER Work Phone: [facility] 01-11-2022 19:05-0400 Diastolic blood pressure 82 mm[Hg] Myranda Mona PAVING INSPECTOR.GOSPEL SINGER Work Phone: [facility] 01-11-2022 19:05-0400 Heart rate 86 /min Myranda Mona PAVING INSPECTOR.GOSPEL SINGER Work Phone: [facility] 01-11-2022 19:05-0400 Respiratory rate 16 /min Myranda Mona PAVING INSPECTOR.GOSPEL SINGER Work Phone: [facility] 01-11-2022 19:05-0400 SaO2% (BldA) [Mass fraction] 98 % Myranda Mona PAVING INSPECTOR.GOSPEL SINGER Work Phone: [facility] 01-11-2022 19:05-0400 Systolic blood pressure 132 mm[Hg] Myranda Mona PAVING INSPECTOR.GOSPEL SINGER Work Phone: [facility] 2019 16:15-0400 BP Diastolic 73 mm[Hg] Emily [facility] , [place] 2019 16:15-0400 BP Systolic 114 mm[Hg] Emily [facility] [place] 2019 16:15-0400 Pulse (Heart Rate) 75 /min [facility], [place] 2019 16:15-0400 Respiratory Rate 16 /min [facility], [place] 2019 16:01-0400 Pulse Oximetry 100 % rolan [facility] [place] 2019 15:15-0400 Body Temperature 98.91 [degF] Emily [facility], [place] 2019 10:02-0400 BMI (Body Mass Index) 33.75 kg/m2 Emily [facility] [place] 2019 10:02-0400 Body weight 109.77 kg Emily [facility] [place] 2019 10:02-0400 Height 180.3 cm Emily [facility] [place] 05-11-2019 11:12-0400 BMI (Body Mass Index) 33.75 kg/m2 Emily [facility] 05-11-2019 11:12-0400 Body Temperature 97.81 [degF] Emily [facility], [place] 05-11-2019 11:12-0400 Body weight 109.77 kg [facility] [place] 05-11-2019 11:12-0400 BP Diastolic 70 mm[Hg] [facility] [place] 05-11-2019 11:12-0400 BP Systolic 121 mm[Hg] [facility] [place] 05-11-2019 11:12-0400 Height 180.3 cm [facility] [place] 05-11-2019 11:12-0400 Pulse (Heart Rate) 64 /min [facility] [place] 05-11-2019 11:12-0400 Pulse Oximetry 96 % [facility] [place] 05-11-2019 11:12-0400 Respiratory Rate 16 /min [facility] [place] Encounters Encounter Date Encounter Type Care Provider Facility Start: 02-11-2023 End: 02-11-2023 ambulatory [facility] Start: 01-30-2023 End: 01-31-2023 ambulatory [facility] Start: 01-30-2023 End: 01-30-2023 Subsequent hospital visit by physician [facility] Us Exam Room 2 [facility] US Procedures Date Procedure Procedure Detail Performing Clinician Start: 02-11-2023 Follow-up visit Follow-up VIOLET ACEVEDO Start: 01-30-2023 Dup-scan xtr veins unilateral/limited study Violet Lacy PA-C Work Phone: Start: 06-27-2022 INFLUENZA VACCINE QUADRIVALENT 6 MO - 64 YRS IM Paula Liu MD Work Phone: Start: 01-01-2022 Us abdominal real ti me w/image limited Paula Liu MD Work Phone: Start: 08-30-2021 Dup-scan xtr veins unilateral/limited study Violet HDZ Work Phone: Start: 07-06-2021 Dup-scan xtr veins complete bilateral study Roxann Ramirez PAVING INSPECTOR - GOSPEL SINGER Work Phone: Start: 10-27-2019 Adult depression scr eening assessment Jeronimo Longo V, DO Work Phone: Start: 06-08-2019 Dup-scan xtr veins unilateral/limited study Cony James Work Phone: Start: 11-17-2014 Colonoscopy Jeronimo Adonay fraire V, DO Work Phone: Plan of Treatment Date Care Activity Detail Author Start: 12-13-2027 LIPID SCREEN LIPID SCREEN [facility] Start: 01-01-2027 LIPID SCREEN LIPID SCREEN [facility] Start: 12-12-2025 DIABETES SCREEN DIABETES SCREEN [facility] Start: 02-15-2025 DTaP/Tdap/Td vaccine (3 - Tdap) DTaP/Tdap/Td vaccine (3 - Tdap) [facility] Start: 02-15-2025 DTaP/Tdap/Td Vaccine s (3 - Tdap) DTaP/Tdap/Td Vaccines (3 - Tdap) [facility] Start: 02-15-2025 Urine microalbumin profile DTAP,TDAP,TD (3 - Tdap) [facility] Start: 01-01-2025 DIABETES SCREEN DIABETES SCREEN [facility] Start: 11-17-2024 Colonoscopy COLONOSCOPY [facility] Start: 11-17-2024 COLORECTAL CANCER SCREENING COLORECTAL CANCER SCREENING [facility] Start: 11-17-2024 Screening for malign ant neoplasm of colon Colon cancer screen colonoscopy [facility] Start: 2024 Pneumococcal 0-64 ye ars Vaccine (2 of 2 - PPSV23) Pneumococcal 0-64 years Vaccine (2 of 2 - PPSV23) [facility] Start: 03-24-2024 LIPID SCREEN LIPID SCREEN [facility] Start: 01-10-2024 ANNUAL PCP TEAM CHEMICAL CELL CHANGER LALI DISEASE VISIT ANNUAL PCP TEAM CHRONIC DISEASE VISIT [facility] Start: 01-10-2024 BP CONTROLLED (<130/80) BP CONTROLLE D (<130/80) [facility] Start: 12-27-2023 ANNUAL PCP TEAM CHEMICAL CELL CHANGER LALI DISEASE VISIT ANNUAL PCP TEAM CHRONIC DISEASE VISIT [facility] Start: 12-13-2023 Hepatitis B surface antibody level LDL CHOLESTEROL [facility] Start: 08-05-2023 DIABETES SCREEN DIABETES SCREEN [facility] Start: 07-11-2023 ANNUAL PCP TEAM CHEMICAL CELL CHANGER LALI DISEASE VISIT ANNUAL PCP TEAM CHRONIC DISEASE VISIT [facility] Start: 06-27-2023 ANNUAL PCP TEAM CHEMICAL CELL CHANGER LALI DISEASE VISIT ANNUAL PCP TEAM CHRONIC DISEASE VISIT [facility] Start: 06-27-2023 COVID-19 VACCINE (4 - Booster for Moderna series) COVID-19 VACCINE (4 - Booster for Moderna series) [facility] Immunizations Immunization Date Immunization Notes Care Provider Anuj wyman 06-27-2022 influenza, injectabl e, quadrivalent, contains preservative Paula Liu MD Work Phone: [facility] 06-24-2021 influenza, injectabl e, quadrivalent, contains preservative Jeronimo Donta V, DO Work Phone: [facility] Work Phone: 04-26-2021 zoster vaccine recombinant Jeronimo Donta V, DO Work Phone: [facility] 06-11-2020 influenza, injectabl e, quadrivalent, contains preservative Jeronimo Donta V, DO Work Phone: [facility] 06-19-2019 influenza, injectabl e, quadrivalent, contains preservative Jeronimo Donta V, DO Work Phone: [facility] 07-21-2018 influenza virus vaccine, unspecified formulation [facility], [place] 07-21-2018 influenza, injectabl e, quadrivalent, contains preservative [facility] 06-03-2017 Influenza, injectabl e, Madin Roxanne Canine Kidney, preservative free, quadrivalent [facility], [place] 06-03-2017 influenza, injectabl e, quadrivalent, contains preservative Jeronimo Donta V, DO Work Phone: [facility] 02-15-2015 Td, unspecified formulation [facility] 02-15-2015 tetanus and diphther ia toxoids, adsorbed, preservative free, for adult use (5 Lf of tetanus toxoid and 2 Lf of diphtheria toxoid) [facility] 08-24-2014 Influenza Vaccine, unspecified formulation [facility] , [place] 08-24-2014 influenza virus vaccine, unspecified formulation [facility] 08-24-2014 influenza, seasonal, injectable Jeronimo Longo V, Work Phone: [facility] Work Phone: 09-14-2013 influenza virus vaccine, unspecified formulation [facility] 08-20-2012 influenza virus vaccine, unspecified formulation [facility] 09-20-2011 influenza virus vaccine, unspecified formulation [facility] 09-20-2011 pneumococcal polysaccharide vaccine, 23 valent [facility] 08-09-2009 novel [id number], preservative-free, injectable [facility] 06-16-2009 influenza virus vaccine, unspecified formulation [facility] 11-27-2005 hepatitis B vaccine, adult dosage [facility] 11-26-2005 pneumococcal polysaccharide vaccine, 23 valent [facility], [place] 07-13-2005 influenza virus vaccine, whole virus [facility] 02-17-2005 hepatitis B vaccine, adult dosage [facility] 01-20-2005 hepatitis B vaccine, adult dosage [facility] 12-31-2004 diphtheria and tetan us toxoids, adsorbed for pediatric use [place], [place] Payers Date Payer Category Payer Unknown [id number] 2021 Unknown [id number] 2021 Unknown [id number] 2021 Unknown [id number] 2021 Unknown [id number] 2018 Unknown BCBS [place] P PO xxxxxxxxxxxx 2018-Present [address] [place] [address] xxxxxxxxxxxx [id number] 1960 Unknown [id number] Social History Date Type Detail Facility Start: 05-11-2019 End: 04-29-2022 Tobacco smoking status WIIS Never smoker [facility] Start: 05-11-2019 End: [facility] 1960 Sex Assigned At Not on file M [facility] Start: 06-26-2021 End: 04-29-2022 Tobacco use and exposure Never used [facility] Start: 06-26-2021 End: 08-30-2021 Alcohol intake Current non-drinker of alcohol (finding) [facility] Work Phone: Start: 06-26-2021 End: 08-30-2021 Alcohol intake [facility] Work Phone: Start: 12-17-2021 End: 01-30-2023 Exposure to SARS-CoV-2 (event) Not sure [facility] Start: 09-30-2021 End: 01-09-2023 History SDOH Alcohol Frequency 1 [facility] Start: 09-30-2021 End: 01-09-2023 History SDOH Alcohol Std Drinks 98 [facility] Start: 09-30-2021 End: 01-09-2023 History SDOH Social Connections Living 3 [facility] Start: 09-30-2021 End: 01-09-2023 History SDOH Financial 5 [facility] Start: 09-30-2021 End: 01-09-2023 History SDOH Transport Med 2 [facility] Start: 08-04-2020 Education 17 [facility] Start: 1960 Sex Assigned At Male C [facility] Work Phone: Start: 01-09-2023 History SDOH Alcohol Std Drinks 0 [facility] Clinical Notes 08-16-2017 to 01-29-2023 Telephone Encounter - [place] - 01/29/2023 8:11 AM EDTTelephone Encounter - [place] - 01/29/2023 8:11 AM EDTJose Boyer APRN.CNP - 01/09/2023 4:48 PM EDTPatient Instructions Note Date & Type Note Facility 01-29-2023 Telephone encounter Note Pt calls in stating he is concerned about L leg swelling from his foot up to the knee. This has been going on for 2-3 weeks. He is NOT wearing his compression stockings Last seen by Violet DÍAZ 08/30/21. He states he has had multiple VV surgeries with Dr. Dave. First one bilaterally and stab phlebectomies of R leg in 2019. Chronic SVT in R on duplex 08/2021. Never had anything on left. [facility] 01-29-2023 Miscellaneous Notes Pt calls in stating he is concerned about L leg swelling from his foot up to the knee. This has been going on for 2-3 weeks. He is NOT wearing his compression stockings Last seen by Violet HOUGH. 08/30/21. He states he has had multiple VV surgeries with Dr. Dave. First one bilaterally and stab phlebectomies of R leg in 2019. Chronic SVT in R on duplex 08/2021. Never had anything on left. documented in this encounter [facility] 01-09-2023 Note HNO ID: [id number] Author: Jose Boyer APRN.YEYO Service: ? Author Type: Nurse Practitioner Type: Progress Notes Filed: 01/09/2023 5:24 PM Note Text: 01/09/2023 Patient presents with: Results SUBJECTIVE: This is a 62 year old that is here today for Above Complaints. Since last office HTN: Patient is compliant with meds Yes Monitors bp at home: No. Denies side effects: No. Chest pain: No. Dyspnea: No. Edema: Yes. Palpitations: No. Syncope: No. Headache: No. Dizziness: No. HYPERLIPIDEMIA: Patient is taking medications: Yes. Patient is watching diet: No. Patient denies myalgias: Yes. Patient denies gi upset: Yes ASTHMA: follows with Dr. Doyle. Has upcoming appointment in 2 weeks. Notes persistent cough. No recent hospitalizations. Denies SOB, dyspnea,or wheezing. No currently using any inhalers ASHD: follows with [facility]. Last office visit on 10/31/2022. Patient reports was taken off losartan. PAST MEDICAL HISTORY Diagnosis Date Achilles tendinitis 02/10/2011 Actinic keratosis Allergic rhinitis 02/27/2012 Dr. Lew-ENT ASHD (arteriosclerotic heart disease) 09/13/2011 Dr. Armstrong Asthma 11/03/2014 Dr. Doyle Chronic cough Class 1 obesity due to excess calories with body mass index (BMI) of 33.0 to 33.9 in adult Cough syncope syndrome DVT of axillary vein, acute left (HCC) 09/11/2018 Essential hypertension, benign GERD (gastroesophageal reflux disease) Hiatal hernia 06/17/2015 [facility] - see scanned documents Hyperlipidemia LDL goal < 100 01/21/2013 Lumbar radiculopathy Peripheral vascular disease (HCC) Primary osteoarthritis of both knees Pulmonary embolus (HCC) 09/23/2017 left Severe persistent asthma with acute exacerbation Syncope 11/06/2017 and collapse Tear of left rotator cuff [facility] Varicose veins of both lower extremities with pain Dr. Robles ALLERGIES Propofol (Pf), Vicodin [Hydrocodone-Acetaminophen], Adhesive Tape (Rosins), Aldactone [Spironolactone], Claritin [Loratadine], Latex, Naprosyn [Naproxen], Simvastatin, Tetracycline, and Vibramycin [Doxycycline Calcium] MEDICATIONS Current Outpatient Medications Medication Sig omeprazole (PRILOSEC) 40 mg capsule Take 1 capsule by mouth once daily. atorvastatin (LIPITOR) 20 mg tablet take 1 tablet by mouth once daily amLODIPine (NORVASC) 5 mg tablet Take 1 tablet by mouth once daily. losartan (COZAAR) 100 mg tablet Take 1 tablet by mouth once daily. BENRALIZUMAB SUBCUTANEOUS Every 2 months fluticasone (FLONASE) 50 mcg/actuation nasal spray Use 2 Sprays in each nostril once daily. Rinse mouth after use. montelukast (SINGULAIR) 10 mg tablet Take 1 tablet by mouth daily at bedtime. chlorpheniramine maleate (CHLORPHEN SR) 12 mg TbER Take 12 mg by mouth every 12 hours. multivitamin ORAL tablet Take one(1) tablet daily. No current facility-administered medications for this visit. Medications and allergies reviewed by this provider. SOCIAL HISTORY Social History Tobacco Use Smoking status: Never Smokeless tobacco: Never Vaping Use Vaping Use: Never used Substance Use Topics Alcohol use: No Drug use: No REVIEW OF SYSTEMS All other reviewed and negative other than HPI. OBJECTIVE: BP 132/64 Pulse 61 Resp 16 Wt 115.7 kg (255 lb) SpO2 98% BMI 35.57 kg/m? . Vital signs reviewed by this provider. APPEARANCE Well appearing, alert, in no acute distress, well-hydrated, well nourished. EYES conjunctiva and sclera normal. HEART RRR with normal S1 and S2, no murmurs, no gallops, no JVD appreciated LUNG clear to auscultation. No wheezes, rhonchi or rales EXTREMITIES Extremities normal, No deformities, No skin discoloration, and No edema SKIN Skin color, texture, turgor normal, no suspicious rashes or lesions to exposed skin Component Latest Ref Rng AND Units 12/12/2022 WBC 3.70 - 11.00 k/uL 4.97 RBC 4.20 - 6.00 m/uL 4.46 Hemoglobin 13.0 - 17.0 g/dL 13.9 Hematocrit 39.0 - 51.0 % 41.6 MCV 80.0 - 100.0 fL 93.3 MCH 26.0 - 34.0 pg 31.2 MCHC 30.5 - 36.0 g/dL 33.4 RDW-CV 11.5 - 15.0 % 11.9 Platelet Count 150 - 400 k/uL 410 (H) MPV 9.0 - 12.7 fL 8.9 (L) Neut% % 52.7 Abs Neut (ANC) 1.45 - 7.50 k/uL 2.62 Lymph% % 36.2 Abs Lymph 1.00 - 4.00 k/uL 1.80 Richmond% % 9.9 Abs Richmond <0.87 k/uL 0.49 Eosin% % 0.0 Abs Eosin <0.46 k/uL <0.03 Baso% % 1.0 Abs Baso <0.11 k/uL 0.05 Immature Gran % % 0.2 IMMATURE GRANS (ABS) <0.10 k/uL <0.03 NRBC /100 WBC 0.0 Absolute nRBC <0.01 k/uL <0.01 DTYPE Auto Protein, Total 6.3 - 8.0 g/dL 7.4 Albumin 3.9 - 4.9 g/dL 4.5 Calcium 8.5 - 10.2 mg/dL 9.7 Bilirubin, Total 0.2 - 1.3 mg/dL 0.4 Alkaline Phosphatase 38 - 113 U/L 105 AST 14 - 40 U/L 25 ALT 10 - 54 U/L 19 Glucose 74 - 99 mg/dL 96 BUN 9 - 24 mg/dL 7 (L) Creatinine 0.73 - 1.22 mg/dL 0.87 Sodium 136 - 144 mmol/L 143 Potassium 3.7 - 5.1 mmol/L 4.1 Chloride 97 - 105 mmol/L 106 (H) CO2 2 (more content not included)... [facility] 01-09-2023 History of Presen t illness Narrative 01/09/2023 Patient presents with: Results SUBJECTIVE: This is a 62 year old that is here today for Above Complaints. Since last office HTN: Patient is compliant with meds Yes Monitors bp at home: No. Denies side effects: No. Chest pain: No. Dyspnea: No. Edema: Yes. Palpitations: No. Syncope: No. Headache: No. Dizziness: No. HYPERLIPIDEMIA: Patient is taking medications: Yes. Patient is watching diet: No. Patient denies myalgias: Yes. Patient denies gi upset: Yes ASTHMA: follows with Dr. Doyle. Has upcoming appointment in 2 weeks. Notes persistent cough. No recent hospitalizations. Denies SOB, dyspnea,or wheezing. No currently using any inhalers ASHD: follows with [facility]. Last office visit on 10/31/2022. Patient reports was taken off losartan. PAST MEDICAL HISTORY Diagnosis Date Achilles tendinitis 02/10/2011 Actinic keratosis Allergic rhinitis 02/27/2012 Dr. Lew-ENT ASHD (arteriosclerotic heart disease) 09/13/2011 Dr. Armstrong Asthma 11/03/2014 Dr. Doyle Chronic cough Class 1 obesity due to excess calories with body mass index (BMI) of 33.0 to 33.9 in adult Cough syncope syndrome DVT of axillary vein, acute left (HCC) 09/11/2018 Essential hypertension, benign GERD (gastroesophageal reflux disease) Hiatal hernia 06/17/2015 [facility] - see scanned documents Hyperlipidemia LDL goal < 100 01/21/2013 Lumbar radiculopathy Peripheral vascular disease (HCC) Primary osteoarthritis of both knees Pulmonary embolus (HCC) 09/23/2017 left Severe persistent asthma with acute exacerbation Syncope 11/06/2017 and collapse Tear of left rotator cuff [facility] Varicose veins of both lower extremities with pain Dr. Robles ALLERGIES Propofol (Pf), Vicodin [Hydrocodone-Acetaminophen], Adhesive Tape (Rosins), Aldactone [Spironolactone], Claritin [Loratadine], Latex, Naprosyn [Naproxen], Simvastatin, Tetracycline, and Vibramycin [Doxycycline Calcium] MEDICATIONS Current Outpatient Medications Medication Sig omeprazole (PRILOSEC) 40 mg capsule Take 1 capsule by mouth once daily. atorvastatin (LIPITOR) 20 mg tablet take 1 tablet by mouth once daily amLODIPine (NORVASC) 5 mg tablet Take 1 tablet by mouth once daily. losartan (COZAAR) 100 mg tablet Take 1 tablet by mouth once daily. BENRALIZUMAB SUBCUTANEOUS Every 2 months fluticasone (FLONASE) 50 mcg/actuation nasal spray Use 2 Sprays in each nostril once daily. Rinse mouth after use. montelukast (SINGULAIR) 10 mg tablet Take 1 tablet by mouth daily at bedtime. chlorpheniramine maleate (CHLORPHEN SR) 12 mg TbER Take 12 mg by mouth every 12 hours. multivitamin ORAL tablet Take one(1) tablet daily. No current facility-administered medications for this visit. Medications and allergies reviewed by this provider. SOCIAL HISTORY Social History Tobacco Use Smoking status: Never Smokeless tobacco: Never Vaping Use Vaping Use: Never used Substance Use Topics Alcohol use: No Drug use: No REVIEW OF SYSTEMS All other reviewed and negative other than HPI. OBJECTIVE: BP 132/64 Pulse 61 Resp 16 Wt 115.7 kg (255 lb) SpO2 98% BMI 35.57 kg/m . Vital signs reviewed by this provider. APPEARANCE Well appearing, alert, in no acute distress, well-hydrated, well nourished. EYES conjunctiva and sclera normal. HEART RRR with normal S1 and S2, no murmurs, no gallops, no JVD appreciated LUNG clear to auscultation. No wheezes, rhonchi or rales EXTREMITIES Extremities normal, No deformities, No skin discoloration, and No edema SKIN Skin color, texture, turgor normal, no suspicious rashes or lesions to exposed skin Component Latest Ref Rng & Units 12/12/2022 WBC 3.70 - 11.00 k/uL 4.97 RBC 4.20 - 6.00 m/uL 4.46 Hemoglobin 13.0 - 17.0 g/dL 13.9 Hematocrit 39.0 - 51.0 % 41.6 MCV 80.0 - 100.0 fL 93.3 MCH 26.0 - 34.0 pg 31.2 MCHC 30.5 - 36.0 g/dL 33.4 RDW-CV 11.5 - 15.0 % 11.9 Platelet Count 150 - 400 k/uL 410 (H) MPV 9.0 - 12.7 fL 8.9 (L) Neut% % 52.7 Abs Neut (ANC) 1.45 - 7.50 k/uL 2.62 Lymph% % 36.2 Abs Lymph 1.00 - 4.00 k/uL 1.80 Richmond% % 9.9 Abs Richmond <0.87 k/uL 0.49 Eosin% % 0.0 Abs Eosin <0.46 k/uL <0.03 Baso% % 1.0 Abs Baso <0.11 k/uL 0.05 Immature Gran % % 0.2 IMMATURE GRANS (ABS) <0.10 k/uL <0.03 NRBC /100 WBC 0.0 Absolute nRBC <0.01 k/uL <0.01 DTYPE Auto Protein, Total 6.3 - 8.0 g/dL 7.4 Albumin 3.9 - 4.9 g/dL 4.5 Calcium 8.5 - 10.2 mg/dL 9.7 Bilirubin, Total 0.2 - 1.3 mg/dL 0.4 Alkaline Phosphatase 38 - 113 U/L 105 AST 14 - 40 U/L 25 ALT 10 - 54 U/L 19 Glucose 74 - 99 mg/dL 96 BUN 9 - 24 mg/dL 7 (L) Creatinine 0.73 - 1.22 mg/dL 0.87 Sodium 136 - 144 mmol/L 143 Potassium 3.7 - 5.1 mmol/L 4.1 Chloride 97 - 105 mmol/L 106 (H) CO2 22 - 30 mmol/L 28 Anion Gap 9 - 18 mmol/L 9 eGFR >=60 mL/min/1.73m 97 Cholesterol, Total <200 mg/dL 172 Triglyceride <150 mg/dL 108 HDL Cholesterol >39 mg/dL 44 Non HDL Cholesterol <130 mg/dL 128 Fasting Time hrs 12 VLDL Cholesterol <30 mg/dL 22 TC:HDL Ratio <5.10 3.91 LDL Cholesterol <100 mg/dL 106 (H) LDL:HDL Ratio <2.54 2.41 Hemoglobin A1C 4.3 - 5.6 % 5.5 Estimated Average Glucose mg/dL 111 SPIROMETRY Never done SHINGRIX VACCINE(2 of 2) due on 06/21/2021 DEPRESSION ASSESSMENT due on 09/02/2022 PROSTATE CANCER SCREENING DISCUSSION due on 06/27/2023 HEPATITIS C SCREENING due on 06/27/2023 COVID-19 VACCINE(4 - Booster for Moderna series) due on 06/27/2023 PNEUMOCOCCAL(2 - PCV) due on 06/27/2023 LDL CHOLESTEROL due on 12/13/2023 ANNUAL PCP TEAM CHRONIC DISEASE VISIT due on 12/27/2023 BP CONTROLLED (<130/80) due on 01/10/2024 COLORECTAL CANCER SCREENING due on 11/17/2024 DTAP,TDAP,TD(3 - Tdap) due on 02/15/2025 DIABETES SCREEN due on 12/12/2025 LIPID SCREEN due on 12/13/2027 INFLUENZA Completed HIV SCREENING Discontinued ASSESSMENT/PLAN: 1. Essential hypertension, benign - ICD9: 401.1, ICD10: I10 (primary diagnosis) - good control - Continue current medication(s) - Encouraged dietary sodium restriction/DASH diet - Recommended regular aerobic exercise. - Recommend home blood pressure monitoring, to bring results in on next visit - Discussed need and benefit for weight loss. - Recheck in 6 months, sooner should new symptoms or problems arise. - Goal of BP <130/80 - Recommended no refined sugar, low refined starch, healthy oil intake (olive oil), healthy protein (fish) along the lines of the Mediterranean diet. 2. ASHD (arteriosclerotic heart disease) - ICD9: 414.00, ICD10: I25.10 - stable - follow-up with cardiology as recommended 3. Hyperlipidemia with target LDL less than 100 - ICD9: 272.4, ICD10: E78.5 - good control - Continue current medication. - Encouraged following a low fat, low cholesterol diet. - Discussed the benefits of regular aerobic exercise and weight loss. - Follow up in 6 months. - Encouraged following a low carbohydrate, healthy oil intake diet. 4. Moderate persistent asthma, uncomplicated - ICD9: 493.90, ICD10: J45.40 - follow-up with pulmonology as scheduled Jose Boyer APRN.GOSPEL SINGER Prescription instructions reviewed with patient as applicable. Patient advised if symptoms do not improve or if symptoms worsen sooner, to contact their primary care physician. Potential red flag symptoms discussed with the patient. Reviewed appropriate action plan to take if red flag symptoms occur. Patient agreeable to treatment plan. I spent a total of 25 minutes on the date of the service which included preparing to see the patient, [id number] patient care, completing clinical documentation, obtaining and/or reviewing separately obtained history, performing a medically appropriate examination, and counseling and educating the patient/family/caregiver. documented in this encounter [facility] 12-27-2022 Miscellaneous Notes Detailed message left on secure VM for patient. Advised for him to return call if any questions or concerns. ----- Message from Paula Liu MD sent at 12/27/2022 8:41 AM EDT ----- Normal chest xray. Continue supportive care as discussed. documented in this encounter [facility] 12-26-2022 Note HNO ID: [id number] Author: RT Trey(R) Service: ? Author Type: Airplane Pilot Crop Dusting Type: Progress Notes Filed: 12/26/2022 4:05 PM Note Text: Radiology Service Progress Note PATIENT NAME: Dinesh Melchor DATE OF SERVICE: December 26, 2022 TIME: 3:57 PM PATIENT IDENTITY VERIFICATION COMPLETED USING TWO (2) IDENTIFIERS: Name and Date of confirmed by patient verbally. FALL SCREENING: Has the patient had 2 falls in the last year or 1 fall with injury or currently using an Ambulatory Assistive Device (Walker, Cane, Wheelchair, Crutches, etc.)? No PATIENT GENDER DATA: Male PATIENT RELEVANT IMPLANT DATA REVIEWED: Yes RADIOLOGY DEPARTMENT: General X-ray: Exam(s) Completed: Chest X-Ray PERIPHERAL IV DATA: Not applicable SIGNED BY: RT Trey(R) December 26, 2022 3:57 PM [facility] 12-26-2022 Note HNO ID: [id number] Author: Paula Liu MD Service: ? Author Type: Physician Type: Progress Notes Filed: 12/27/2022 9:07 AM Note Text: Chief Complaint Patient presents with: F/U 6 Month: Has had head and chest congestion that's been going on for 2 months. Patient states he is coughing up yellow/green phlegm. Moist cough. No noted fevers recently. HPI Dinesh Melchor is a 62 year old male who presents here today for Evaluation of cough and cold symptoms. Patient states that he developed productive cough about 7-8 days ago with yellow green sputum. Admits to wheezing, headache, ear pain, sore throat, hoarse voice, fatigue. Treating with Delsym and Mucinex OTC along with albuterol 3-4 times per day which works short term for wheezing. Denies fever/chills, SOB, myalgias, new loss of taste/smell, nasal congestion, rhinorrhea, nausea, vomiting, diarrhea. Feels like symptoms are gradually worsening. No sick contacts with COVID or similar symptoms. Has history of asthma and has been hospitalized for asthma exacerbation in the past. Past medical history, appointments, medications, allergies reviewed. Previous Medical History PAST MEDICAL HISTORY Diagnosis Date Achilles tendinitis 02/10/2011 Actinic keratosis Allergic rhinitis 02/27/2012 Dr. Lew-ENT ASHD (arteriosclerotic heart disease) 09/13/2011 Dr. Armstrong Asthma 11/03/2014 Dr. Doyle Chronic cough Class 1 obesity due to excess calories with body mass index (BMI) of 33.0 to 33.9 in adult Cough syncope syndrome DVT of axillary vein, acute left (HCC) 09/11/2018 Essential hypertension, benign GERD (gastroesophageal reflux disease) Hiatal hernia 06/17/2015 [facility] - see scanned documents Hyperlipidemia LDL goal < 100 01/21/2013 Lumbar radiculopathy Peripheral vascular disease (HCC) Primary osteoarthritis of both knees Pulmonary embolus (HCC) 09/23/2017 left Severe persistent asthma with acute exacerbation Syncope 11/06/2017 and collapse Tear of left rotator cuff [facility] Varicose veins of both lower extremities with pain Dr. Robles Previous Surgical History PAST SURGICAL HISTORY Procedure Laterality Date APPENDECTOMY 09/02/1988 ARTHROSCOPY KNEE DIAGNOSTIC W/WO SYNOVIAL BX SPX 08/31/2009 Arthroscopy, knee right Dr. [facility] COLONOSCOPY FLX DX W/COLLJ SPEC WHEN PFRMD 11/17/2014 Colonoscopy ESOPHAGOGASTRODUODENOSCOPY TRANSORAL DIAGNOSTIC 11/17/2014 EGD LAPAROSCOPY SURG CHOLECYSTECTOMY 09/02/1999 Cholecystectomy, lap LIGJ DIVJ AND/EXCJ VARICOSE VEIN CLUSTER 1 LEG 09/02/2003 Varicose Vein Surgery, BLE NASAL SEPTUM REPOS W STABILIZATION 06/02/2010 PAST SURGICAL HISTORY OF 05/22/2009 ruptured valve on back of right knee PAST SURGICAL HISTORY OF 08/31/2009 repair of a torn mansicus PAST SURGICAL HISTORY OF 2014 esophageal surgery VASECTOMY UNI/BI SPX W/POSTOP SEMEN EXAMS 09/02/1999 Family History FAMILY HISTORY Problem Relation Age of Onset Hypertension Mother other (renal stones [Other]) Father GERD Brother Hypertension Brother Diabetes Son Patient Allergies ALLERGIES Allergen Reactions Propofol (Pf) Other: See Comments Did'nt wake up Vicodin [Hydrocodon* Other: See Comments Constipation, extreme sleepiness Adhesive Tape (Georgina* Aldactone [Spironol* Rash Claritin [Loratadin* Intolerance did not help with s/s Latex Itching Naprosyn [Naproxen] GI Upset Simvastatin Other: See Comments leg muscle cramping Tetracycline GI Upset Vibramycin [Doxycyc* GI Upset Current Medications Current Outpatient Medications on File Prior to Visit Medication Sig atorvastatin (LIPITOR) 20 mg tablet take 1 tablet by mouth once daily amLODIPine (NORVASC) 5 mg tablet Take 1 tablet by mouth once daily. predniSONE (DELTASONE) 10 mg tablet take FOUR tabs for three days, then 3 (THREE) tabs for three days, then 2 (TWO) tabs for three days, then 1 (ONE) tab for 3 (THREE) days losartan (COZAAR) 100 mg tablet Take 1 tablet by mouth once daily. omeprazole (PRILOSEC) 40 mg capsule Take 1 capsule by mouth once daily. BENRALIZUMAB SUBCUTANEOUS Every 2 months fluticasone (FLONASE) 50 mcg/actuation nasal spray Use 2 Sprays in each nostril once daily. Rinse mouth after use. montelukast (SINGULAIR) 10 mg tablet Take 1 tablet by mouth daily at bedtime. chlorpheniramine maleate (CHLORPHEN SR) 12 mg TbER Take 12 mg by mouth every 12 hours. multivitamin ORAL tablet Take one(1) tablet daily. No current facility-administered medications on file prior to visit. Social History Social History Tobacco Use Smoking status: Never Smokeless tobacco: Never Vaping Use Vaping Use: Never used Substance Use Topics Alcohol use: No Drug use: No Review of Symptoms REVIEW OF SYSTEMS See HPI EXAM: BP 126/80 Pulse 70 Temp 36.3 ?C (97.4 ?F) Resp 16 Wt 111.3 kg (245 lb 6.4 oz) SpO2 94% BMI 34.23 kg/m? General Ap (more content not included)... [facility] 12-26-2022 Miscellaneous Notes TC to patient who verbalized understanding of providers message and has no questions at this time. GERMAIN Aly ----- Message from Paula Liu MD sent at 12/26/2022 4:53 PM EDT ----- Overall his labs look good. His platelet count was slightly high which may be related to inflammation from recent illness. Will discuss further at repeat OV in 2 weeks. documented in this encounter [place] [id number] Note Patient Outreach ([place] [facility]) JILLDINESH ([id number]) 1960 M Date Time Provider Department 12/25/22 MARICHUY BENITEZRITG During your visit today, we recorded the following information about you: Marichuy Benitez MD 12/25/2022 9:57 AM Signed Virtualist Progress Note Triage Call Triage source: Triage Call (Nurse Software Sales Manager, [facility] Triage, [facility] Phone Triage) History/Physical Exam: 62 yo man called in for earlier appointment for evaluation of symptoms and refused to speak with me. Nurse Triage Disposition (If call is from Home Care, Home Care nurse triage, or an [facility] Care, the disposition is Go to ED Now ): Go to ED Now Signed in as Primary Virtualist, Secondary Virtualist, or [facility] Telehealth provider: Secondary SIGNATURE: Marichuy Benitez MD PATIENT NAME: Dinesh Melchor DATE: December 25, 2022 Allergies As of Date: 12/25/2022 Noted Allergy Reaction PROPOFOL (PF) 11/17/2014 14 - Other: See Comments Comments: Did'nt wake up VICODIN (HYDROCODONE-ACETAMINOPHE*2010 14 - Other: See Comments Comments: Constipation, extreme sleepiness ADHESIVE TAPE (ROSINS) 10/28/2009 ALDACTONE (SPIRONOLACTONE) 07/20/2022 2 - Rash CLARITIN (LORATADINE) 12/15/2008 5 - Intolerance Comments: did not help with s/s LATEX 09/26/2012 9 - Itching NAPROSYN (NAPROXEN) 11/26/2005 8 - GI Upset SIMVASTATIN 01/13/2013 14 - Other: See Comments Comments: leg muscle cramping TETRACYCLINE 11/26/2005 8 - GI Upset VIBRAMYCIN (DOXYCYCLINE CALCIUM) 11/26/2005 8 - GI Upset Date Reviewed: 07/11/2022 Reviewed by: Nancy Goyal LPN - Fully Assessed Prescriptions as of 12/25/2022 - atorvastatin (LIPITOR) 20 mg tablet take 1 tablet by mouth once daily - amLODIPine (NORVASC) 5 mg tablet Take 1 tablet by mouth once daily. - predniSONE (DELTASONE) 10 mg tablet take FOUR tabs for three days, then 3 (THREE) tabs for three days, then 2 (TWO) tabs for three days, then 1 (ONE) tab for 3 (THREE) days - losartan (COZAAR) 100 mg tablet Take 1 tablet by mouth once daily. - omeprazole (PRILOSEC) 40 mg capsule Take 1 capsule by mouth once daily. - BENRALIZUMAB SUBCUTANEOUS Every 2 months - fluticasone (FLONASE) 50 mcg/actuation nasal spray Use 2 Sprays in each nostril once daily. Rinse mouth after use. - montelukast (SINGULAIR) 10 mg tablet Take 1 tablet by mouth daily at bedtime. - chlorpheniramine maleate (CHLORPHEN SR) 12 mg TbER Take 12 mg by mouth every 12 hours. - multivitamin ORAL tablet Take one(1) tablet daily. 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 10/04/2014 Asthma [J45.909] 11/03/2014 08/16/2017 Cough syncope [R55, R05.4] 12/19/2015 Severe persistent asthma without complication [*08/16/2017 07/01/2018 Pulmonary embolus (HCC) [I26.99] 09/23/2017 senior care current use of anticoagulant therapy *09/23/2017 Moderate persistent asthma, uncomplicated [J45.*07/01/2018 DVT of axillary vein, acute left (HCC) [I82.A12]09/11/2018 Actinic keratosis [L57.0] 09/11/2018 Lumbar radiculopathy [M54.16] 08/05/2020 DDD (degenerative disc disease), lumbar [M51.36]08/05/2020 Peripheral vascular disease (HCC) [I73.9] Obesity, Class I, BMI 30-34.9 [E66.9] 04/26/2021 Encounter Status:Closed by MARICHUY BENITEZ on 12/25/22 [facility] 12-25-2022 Note HNO ID: [id number] Author: Marichuy Benitez MD Service: ? Author Type: Physician Type: Progress Notes Filed: 12/25/2022 9:57 AM Note Text: Virtualist Progress Note Triage Call Triage source: Triage Call (Nurse Software Sales Manager, [facility] Triage, [facility] Phone Triage) History/Physical Exam: 62 yo man called in for earlier appointment for evaluation of symptoms and refused to speak with me. Nurse Triage Disposition (If call is from [facility], [facility] nurse triage, or an Express Care, the disposition is Go to ED Now ): Go to ED Now Signed in as Primary Virtualist, Secondary Virtualist, or [facility] Telehealth provider: Secondary SIGNATURE: Marichuy Benitez MD PATIENT NAME: Dinesh Nobleselhardt DATE: December 25, 2022 [facility] 12-25-2022 History of Presen t illness Narrative Virtualist Progress Note Triage Call Triage source: Triage Call (Nurse Software Sales Manager, [facility] Triage, [facility] Phone Triage) History/Physical Exam: 62 yo man called in for earlier appointment for evaluation of symptoms and refused to speak with me. Nurse Triage Disposition (If call is from [facility], [facility] nurse triage, or an Express Care, the disposition is Go to ED Now ): Go to ED Now Signed in as Primary Virtualist, Secondary Virtualist, or [facility] Telehealth provider: Secondary SIGNATURE: Marichuy Benitez MD PATIENT NAME: Dinesh Melchor DATE: December 25, 2022 documented in this encounter [facility] 12-06-2022 Miscellaneous Notes Fasting labs ordered. To be completed at least 3 days prior to OV. documented in this encounter [facility] 07-20-2022 Miscellaneous Notes TE opened. 07/20/22. Nancy Goyal LPN documented in this encounter [facility] 07-20-2022 Miscellaneous Notes TC to patient, made aware. Voices understanding. Nancy Goyal LPN I sent over prescription for amlodipine. Have him update me next week with blood pressures. Jose Boyer APRN.YEYO TC to patient. Has taken amlodipine in the past. Doesn't remember why it was stopped. Would be ok with going back on the amlodipine again. Nancy Goyal LPN I would find it odd when he has been on this medication that an increase would give him a rash. We can change to something else. He has taken amlodipine in the past- is there a reason this medication was stopped? Jose Boyer APRN.YEYO Images from the original note were not included. Patient calling to ensure provider receives his condition update as documented in [facility]. Pt's [facility] message from today copied below. Patient denies chest pain, chest tightness, trouble breathing, dizziness, throat tightness or swallowing difficulties. Reports he has had a headache related to cold symptoms. Red flag symptoms reviewed as to when to seek ER. Please advise patient. Thank you. COPIED FROM : July 20, 2022 Dinesh Melchor P [facility] My Chart Rx Pool (supporting Pod[employer], BROOKE Rivera.GOSPEL SINGER) AE 10:33 AM Jose, My pressure readings are still high, can t get below 161/72 and the medicine is making me break out in a rash on my chest, back and head. Maybe we need to try a different medication all together. The rash is getting uncomfortable and is starting to get heads on it like pimples. I am open to trying something else. Please let me know how you want to proceed. Thank you Dinesh Melchor documented in this encounter [facility] 07-11-2022 Note HNO ID: [id number] Author: Jose Boyer APRN.CNP Service: ? Author Type: Nurse Practitioner Type: Progress Notes Filed: 07/11/2022 4:13 PM Note Text: 07/11/2022 Patient presents with: Recheck: Blood pressure SUBJECTIVE: This is a 62 year old that is here today for Above Complaints. BP elevated above goal at last office appointment. Had not been taking his aldactone. Restarted aldactone and tolerating without side effects. Has not checked his blood pressure at home. Denies visual changes, slurred speech, headaches, dizziness, lightheadedness, extremity numbness, tingling or weakness PAST MEDICAL HISTORY Diagnosis Date Achilles tendinitis 02/10/2011 Actinic keratosis Allergic rhinitis 02/27/2012 Dr. Lew-ENT ASHD (arteriosclerotic heart disease) 09/13/2011 Dr. Armstrong Asthma 11/03/2014 Dr. Doyle Chronic cough Class 1 obesity due to excess calories with body mass index (BMI) of 33.0 to 33.9 in adult Cough syncope syndrome DVT of axillary vein, acute left (HCC) 09/11/2018 Essential hypertension, benign GERD (gastroesophageal reflux disease) Hiatal hernia 06/17/2015 [facility] - see scanned documents Hyperlipidemia LDL goal < 100 01/21/2013 Lumbar radiculopathy Peripheral vascular disease (HCC) Primary osteoarthritis of both knees Pulmonary embolus (HCC) 09/23/2017 left Severe persistent asthma with acute exacerbation Syncope 11/06/2017 and collapse Tear of left rotator cuff [facility] Varicose veins of both lower extremities with pain Dr. Robles ALLERGIES Propofol (Pf), Vicodin [Hydrocodone-Acetaminophen], Adhesive Tape (Rosins), Claritin [Loratadine], Latex, Naprosyn [Naproxen], Simvastatin, Tetracycline, and Vibramycin [Doxycycline Calcium] MEDICATIONS Current Outpatient Medications Medication Sig predniSONE (DELTASONE) 10 mg tablet take FOUR tabs for three days, then 3 (THREE) tabs for three days, then 2 (TWO) tabs for three days, then 1 (ONE) tab for 3 (THREE) days spironolactone (ALDACTONE) 25 mg tablet Take 1 tablet by mouth once daily. losartan (COZAAR) 100 mg tablet Take 1 tablet by mouth once daily. omeprazole (PRILOSEC) 40 mg capsule Take 1 capsule by mouth once daily. atorvastatin (LIPITOR) 20 mg tablet take 1 tablet by mouth once daily BENRALIZUMAB SUBCUTANEOUS Every 2 months PROAIR HFA 90 mcg/actuation inhaler Inhale 2 Puffs as instructed every 4 hours as needed for Wheezing/Shortness of Breath. fluticasone (FLONASE) 50 mcg/actuation nasal spray Use 2 Sprays in each nostril once daily. Rinse mouth after use. montelukast (SINGULAIR) 10 mg tablet Take 1 tablet by mouth daily at bedtime. chlorpheniramine maleate (CHLORPHEN SR) 12 mg TbER Take 12 mg by mouth every 12 hours. multivitamin ORAL tablet Take one(1) tablet daily. No current facility-administered medications for this visit. Medications and allergies reviewed by this provider. SOCIAL HISTORY Social History Tobacco Use Smoking status: Never Smokeless tobacco: Never Vaping Use Vaping Use: Never used Substance Use Topics Alcohol use: No Drug use: No REVIEW OF SYSTEMS All other reviewed and negative other than HPI. OBJECTIVE: BP 142/76 Pulse 62 Resp 16 Wt 109.9 kg (242 lb 3.2 oz) SpO2 98% BMI 33.78 kg/m? . Vital signs reviewed by this provider. APPEARANCE Well appearing, alert, in no acute distress, well-hydrated, well nourished. EYES conjunctiva and sclera normal. HEART RRR with normal S1 and S2, no murmurs, no gallops, no JVD appreciated LUNG clear to auscultation. No wheezes, rhonchi, or rales SKIN Skin color, texture, turgor normal, no suspicious rashes or lesions SPIROMETRY Never done SHINGRIX VACCINE(2 of 2) due on 06/21/2021 BP CONTROLLED (<130/80) due on 04/26/2022 PROSTATE CANCER SCREENING DISCUSSION due on 06/27/2023 HEPATITIS C SCREENING due on 06/27/2023 COVID-19 VACCINE(4 - Booster for Moderna series) due on 06/27/2023 PNEUMOCOCCAL(2 - PCV) due on 06/27/2023 LDL CHOLESTEROL due on 01/01/2023 ANNUAL PCP TEAM CHRONIC DISEASE VISIT due on 07/11/2023 COLORECTAL CANCER SCREENING due on 11/17/2024 DIABETES SCREEN due on 01/01/2025 DTAP,TDAP,TD(3 - Tdap) due on 02/15/2025 LIPID SCREEN due on 01/01/2027 INFLUENZA Completed DEPRESSION ASSESSMENT Completed HIV SCREENING Discontinued ASSESSMENT/PLAN: 1. Essential hypertension, benign - ICD9: 401.1, ICD10: I10 - just barely above goal at <140/90 - will have him continue current medications - he will check BP at home daily for two weeks then update me with readings - if above goal will increase aldactone - Encouraged dietary sodium restriction/DASH diet - Recommended regular aerobic exercise. - Recommend home blood pressure monitoring, to bring results in on next visit - Goal of BP <140/90 - Recommended no refined sugar, low refined starch, healthy oil intake (olive oil), healthy protein (fish) along the lines of the Mediter (more content not included)... [facility] 06-27-2022 Note HNO ID: [id number] Author: Paula Liu MD Service: ? Author Type: Physician Type: Progress Notes Filed: 06/28/2022 12:10 PM Note Text: Chief Complaint Patient presents with: F/U 6 Month HPI Dinesh Melchor is a 62 year old male who presents here today for 6 month follow up. Denies any bowel, Gi, or urinary issues. HTN: taking Losartan 100 mg daily but not his Aldactone. Checks BP occasionally, BP ranging from 137-138/72. Denies any chest pains, dizziness, or SOB. Has not been adhering to low sodium diet or exercising regularly. Lipid: Taking Lipitor 20 mg daily. Tolerates well, no myalgia or gi upset. Admits that his diet could improve. Exercise could as well. GERD: Sx controlled with use of Prilosec 40 mg daily. Asthma: Taking Singulair 10 mg daily at bedtime and using inhaler and nebulizer prn. Needing his albuterol about 1-2 times per week for cough/SOB/wheezing. Receives allergy shot weekly and Benralizumab every 56 days, will receive in 1 week. Has follow up appointment with Dr. Doyle next week. ASHD: managed by Dr. Armstrong. Asymptomatic on medical management. Recommended f/u in 1 year. - Declines Hep C screening. Declines depression symptoms. Agrees to flu shot. Will not receive another Shingrix vaccine due to syncopal episode. Will receive Pneumonia at another time. Prefers to have one vaccine at at time, receives allergy shots Saturday. Will receive Moderna Bivalent through [facility]. Past medical history, appointments, medications, allergies reviewed. Previous Medical History PAST MEDICAL HISTORY Diagnosis Date Achilles tendinitis 02/10/2011 Actinic keratosis Allergic rhinitis 02/27/2012 Dr. Lew-ENT ASHD (arteriosclerotic heart disease) 09/13/2011 Dr. Armstrong Asthma 11/03/2014 Dr. Doyle Chronic cough Class 1 obesity due to excess calories with body mass index (BMI) of 33.0 to 33.9 in adult Cough syncope syndrome DVT of axillary vein, acute left (HCC) 09/11/2018 Essential hypertension, benign GERD (gastroesophageal reflux disease) Hiatal hernia 06/17/2015 [facility] - see scanned documents Hyperlipidemia LDL goal < 100 01/21/2013 Lumbar radiculopathy Peripheral vascular disease (HCC) Primary osteoarthritis of both knees Pulmonary embolus (HCC) 09/23/2017 left Severe persistent asthma with acute exacerbation Syncope 11/06/2017 and collapse Tear of left rotator cuff [facility] Varicose veins of both lower extremities with pain Dr. Petranic-Summa Previous Surgical History PAST SURGICAL HISTORY Procedure Laterality Date APPENDECTOMY 09/02/1988 ARTHROSCOPY KNEE DIAGNOSTIC W/WO SYNOVIAL BX SPX 08/31/2009 Arthroscopy, knee right Dr. [facility] COLONOSCOPY FLX DX W/COLLJ SPEC WHEN PFRMD 11/17/2014 Colonoscopy ESOPHAGOGASTRODUODENOSCOPY TRANSORAL DIAGNOSTIC 11/17/2014 EGD LAPAROSCOPY SURG CHOLECYSTECTOMY 09/02/1999 Cholecystectomy, lap LIGJ DIVJ AND/EXCJ VARICOSE VEIN CLUSTER 1 LEG 09/02/2003 Varicose Vein Surgery, BLE NASAL SEPTUM REPOS W STABILIZATION 06/02/2010 PAST SURGICAL HISTORY OF 05/22/2009 ruptured valve on back of right knee PAST SURGICAL HISTORY OF 08/31/2009 repair of a torn mansicus PAST SURGICAL HISTORY OF 2014 esophageal surgery VASECTOMY UNI/BI SPX W/POSTOP SEMEN EXAMS 09/02/1999 Family History FAMILY HISTORY Problem Relation Age of Onset Hypertension Mother other (renal stones [Other]) Father GERD Brother Hypertension Brother Diabetes Son Patient Allergies ALLERGIES Allergen Reactions Propofol (Pf) Other: See Comments Did'nt wake up Vicodin [Hydrocodon* Other: See Comments Constipation, extreme sleepiness Adhesive Tape (Georgina* Claritin [Loratadin* Intolerance did not help with s/s Latex Itching Naprosyn [Naproxen] GI Upset Simvastatin Other: See Comments leg muscle cramping Tetracycline GI Upset Vibramycin [Doxycyc* GI Upset Current Medications Current Outpatient Medications on File Prior to Visit Medication Sig losartan (COZAAR) 100 mg tablet Take 1 tablet by mouth once daily. spironolactone (ALDACTONE) 25 mg tablet Take 1 tablet by mouth once daily. omeprazole (PRILOSEC) 40 mg capsule Take 1 capsule by mouth once daily. atorvastatin (LIPITOR) 20 mg tablet take 1 tablet by mouth once daily BENRALIZUMAB SUBCUTANEOUS Every 2 months PROAIR HFA 90 mcg/actuation inhaler Inhale 2 Puffs as instructed every 4 hours as needed for Wheezing/Shortness of Breath. fluticasone (FLONASE) 50 mcg/actuation nasal spray Use 2 Sprays in each nostril once daily. Rinse mouth after use. (Patient not taking: Reported on 03/15/2022 ) montelukast (SINGULAIR) 10 mg tablet Take 1 tablet by mouth daily at bedtime. chlorpheniramine maleate (CHLORPHEN SR) 12 mg TbER Take 12 mg by mouth every 12 hours. albuterol (PROVENTIL) 2.5 mg /3 mL (0.083 %) nebulizer solution Use 3 mL via nebulizer every 4 hours as needed for Wheezing/Sh (more content not included)... [facility] 06-27-2022 History of Presen t illness Narrative Chief Complaint Patient presents with: F/U 6 Month HPI Dinesh Melchor is a 62 year old male who presents here today for 6 month follow up. Denies any bowel, Gi, or urinary issues. HTN: taking Losartan 100 mg daily but not his Aldactone. Checks BP occasionally, BP ranging from 137-138/72. Denies any chest pains, dizziness, or SOB. Has not been adhering to low sodium diet or exercising regularly. Lipid: Taking Lipitor 20 mg daily. Tolerates well, no myalgia or gi upset. Admits that his diet could improve. Exercise could as well. GERD: Sx controlled with use of Prilosec 40 mg daily. Asthma: Taking Singulair 10 mg daily at bedtime and using inhaler and nebulizer prn. Needing his albuterol about 1-2 times per week for cough/SOB/wheezing. Receives allergy shot weekly and Benralizumab every 56 days, will receive in 1 week. Has follow up appointment with Dr. Doyle next week. ASHD: managed by Dr. Armstrong. Asymptomatic on medical management. Recommended f/u in 1 year. HM - Declines Hep C screening. Declines depression symptoms. Agrees to flu shot. Will not receive another Shingrix vaccine due to syncopal episode. Will receive Pneumonia at another time. Prefers to have one vaccine at at time, receives allergy shots Saturday. Will receive Moderna Bivalent through [facility]. Past medical history, appointments, medications, allergies reviewed. Previous Medical History PAST MEDICAL HISTORY Diagnosis Date Achilles tendinitis 02/10/2011 Actinic keratosis Allergic rhinitis 02/27/2012 Dr. Lew-ENT ASHD (arteriosclerotic heart disease) 09/13/2011 Dr. Armstrong Asthma 11/03/2014 Dr. Doyle Chronic cough Class 1 obesity due to excess calories with body mass index (BMI) of 33.0 to 33.9 in adult Cough syncope syndrome DVT of axillary vein, acute left (HCC) 09/11/2018 Essential hypertension, benign GERD (gastroesophageal reflux disease) Hiatal hernia 06/17/2015 [facility] - see scanned documents Hyperlipidemia LDL goal < 100 01/21/2013 Lumbar radiculopathy Peripheral vascular disease (HCC) Primary osteoarthritis of both knees Pulmonary embolus (HCC) 09/23/2017 left Severe persistent asthma with acute exacerbation Syncope 11/06/2017 and collapse Tear of left rotator cuff [facility] Varicose veins of both lower extremities with pain Dr. Robles Previous Surgical History PAST SURGICAL HISTORY Procedure Laterality Date APPENDECTOMY 09/02/1988 ARTHROSCOPY KNEE DIAGNOSTIC W/WO SYNOVIAL BX SPX 08/31/2009 Arthroscopy, knee right Dr[facility] COLONOSCOPY FLX DX W/COLLJ SPEC WHEN PFRMD 11/17/2014 Colonoscopy ESOPHAGOGASTRODUODENOSCOPY TRANSORAL DIAGNOSTIC 11/17/2014 EGD LAPAROSCOPY SURG CHOLECYSTECTOMY 09/02/1999 Cholecystectomy, lap LIGJ DIVJ &/EXCJ VARICOSE VEIN CLUSTER 1 LEG 09/02/2003 Varicose Vein Surgery, BLE NASAL SEPTUM REPOS W STABILIZATION 06/02/2010 PAST SURGICAL HISTORY OF 05/22/2009 ruptured valve on back of right knee PAST SURGICAL HISTORY OF 08/31/2009 repair of a torn mansicus PAST SURGICAL HISTORY OF 2014 esophageal surgery VASECTOMY UNI/BI SPX W/POSTOP SEMEN EXAMS 09/02/1999 Family History FAMILY HISTORY Problem Relation Age of Onset Hypertension Mother other (renal stones [Other]) Father GERD Brother Hypertension Brother Diabetes Son Patient Allergies ALLERGIES Allergen Reactions Propofol (Pf) Other: See Comments Did'nt wake up Vicodin [Hydrocodon* Other: See Comments Constipation, extreme sleepiness Adhesive Tape (Georgina* Claritin [Loratadin* Intolerance did not help with s/s Latex Itching Naprosyn [Naproxen] GI Upset Simvastatin Other: See Comments leg muscle cramping Tetracycline GI Upset Vibramycin [Doxycyc* GI Upset Current Medications Current Outpatient Medications on File Prior to Visit Medication Sig losartan (COZAAR) 100 mg tablet Take 1 tablet by mouth once daily. spironolactone (ALDACTONE) 25 mg tablet Take 1 tablet by mouth once daily. omeprazole (PRILOSEC) 40 mg capsule Take 1 capsule by mouth once daily. atorvastatin (LIPITOR) 20 mg tablet take 1 tablet by mouth once daily BENRALIZUMAB SUBCUTANEOUS Every 2 months PROAIR HFA 90 mcg/actuation inhaler Inhale 2 Puffs as instructed every 4 hours as needed for Wheezing/Shortness of Breath. fluticasone (FLONASE) 50 mcg/actuation nasal spray Use 2 Sprays in each nostril once daily. Rinse mouth after use. (Patient not taking: Reported on 03/15/2022 ) montelukast (SINGULAIR) 10 mg tablet Take 1 tablet by mouth daily at bedtime. chlorpheniramine maleate (CHLORPHEN SR) 12 mg TbER Take 12 mg by mouth every 12 hours. albuterol (PROVENTIL) 2.5 mg /3 mL (0.083 %) nebulizer solution Use 3 mL via nebulizer every 4 hours as needed for Wheezing/Shortness of Breath. Use over 5-15minutes. (Patient not taking: Reported on 01/11/2022 ) multivitamin ORAL tablet Take one(1) tablet daily. No current facility-administered medications on file prior to visit. Social History Social History Tobacco Use Smoking status: Never Smokeless tobacco: Never Vaping Use Vaping Use: Never used Substance Use Topics Alcohol use: No Drug use: No Review of Symptoms REVIEW OF SYSTEMS GENERAL: No weight loss, malaise or fevers RESPIRATORY: See HPI CARDIOVASCULAR: Negative for chest pain, leg swelling, hypertension, CHF or palpitations GI: No nausea, vomiting, or diarrhea : No history of dysuria, frequency or incontinence, No difficulty urinating, nocturia > 1 time per night or hematuria SKIN: Negative for lesions, rash, and itching EXAM: BP 136/74 (BP Site: Right Arm, BP Position: Sitting, BP Cuff Size: Large Adult) Pulse 68 Resp 16 Wt 110.9 kg (244 lb 9.6 oz) BMI 34.11 kg/m General Appearance: Well appearing, alert, in no acute distress, well-hydrated, well nourished.. Skin: Skin color, texture, turgor normal, no suspicious rashes or lesions. Lungs: Lungs clear to auscultation. No wheezing, rhonchi, rales.. Heart: RRR without murmur, gallop, or rubs. No ectopy. Abdomen: Normal abdominal exam, Abdomen soft, non-tender. Bowel sounds normal. No masses, organomegaly. Extremities: No deformities, edema, skin discoloration, clubbing or cyanosis. Good capillary refill. . Health Maintenance List SPIROMETRY Never done HEPATITIS C SCREENING Never done PNEUMOCOCCAL(2 - PCV) due on 09/20/2012 SHINGRIX VACCINE(2 of 2) due on 06/21/2021 PROSTATE CANCER SCREENING DISCUSSION due on 07/13/2021 DEPRESSION ASSESSMENT Never done COVID-19 VACCINE(4 - Booster for Moderna series) due on 10/05/2021 BP CONTROLLED (<130/80) due on 04/26/2022 INFLUENZA(1) due on 05/03/2022 LDL CHOLESTEROL due on 01/01/2023 ANNUAL PCP TEAM CHRONIC DISEASE VISIT due on 06/04/2023 COLORECTAL CANCER SCREENING due on 11/17/2024 DIABETES SCREEN due on 01/01/2025 DTAP,TDAP,TD(3 - Tdap) due on 02/15/2025 LIPID SCREEN due on 01/01/2027 HIV SCREENING Discontinued Data reviewed Component Latest Ref Rng & Units 01/01/2022 WBC 3.70 - 11.00 k/uL 5.12 RBC 4.20 - 6.00 m/uL 4.26 Hemoglobin 13.0 - 17.0 g/dL 13.3 Hematocrit 39.0 - 51.0 % 39.2 MCV 80.0 - 100.0 fL 92.0 MCH 26.0 - 34.0 pg 31.2 MCHC 30.5 - 36.0 g/dL 33.9 RDW-CV 11.5 - 15.0 % 11.6 Platelet Count 150 - 400 k/uL 333 MPV 9.0 - 12.7 fL 8.6 (L) Neut% % 60.9 Abs Neut (ANC) 1.45 - 7.50 k/uL 3.12 Lymph% % 30.3 Abs Lymph 1.00 - 4.00 k/uL 1.55 Richmond% % 8.2 Abs [place] <0.87 k/uL 0.42 Eosin% % 0.0 Abs Eosin <0.46 k/uL <0.03 Baso% % 0.4 Abs Baso <0.11 k/uL <0.03 Immature Gran % % 0.2 IMMATURE GRANS (ABS) <0.10 k/uL <0.03 NRBC /100 WBC 0.0 Absolute nRBC <0.01 k/uL <0.01 DTYPE Auto Protein, Total 6.3 - 8.0 g/dL 6.8 Albumin 3.9 - 4.9 g/dL 4.4 Calcium 8.5 - 10.2 mg/dL 8.9 Bilirubin, Total 0.2 - 1.3 mg/dL 0.3 Alkaline Phosphatase 38 - 113 U/L 99 AST 14 - 40 U/L 18 ALT 10 - 54 U/L 14 Glucose 74 - 99 mg/dL 95 BUN 9 - 24 mg/dL 10 Creatinine 0.73 - 1.22 mg/dL 0.99 Sodium 136 - 144 mmol/L 140 Potassium 3.7 - 5.1 mmol/L 4.0 Chloride 97 - 105 mmol/L 103 CO2 22 - 30 mmol/L 29 Anion Gap 9 - 18 mmol/L 8 (L) eGFR >=60 mL/min/1.73m 86 Total Cholesterol, Nonfasting <200 mg/dL 151 Triglycerides, Nonfasting <150 mg/dL 101 HDL Cholesterol, Nonfasting >39 mg/dL 41 LDL Cholesterol, Nonfasting <100 mg/dL 90 Non HDL Cholesterol, Nonfasting <130 mg/dL 110 VLDL Cholesterol, Nonfasting <30 mg/dL 20 Total Chol/HDL Ratio, Nonfasting <5.10 mg/dL 3.68 LDL/HDL Ratio, Nonfasting <2.54 mg/dL 2.20 ASSESSMENT/PLAN: 1. Essential hypertension, benign - ICD9: 401.1, ICD10: I10 (primary diagnosis) - good control - Continue current medication(s) - Encouraged dietary sodium restriction/DASH diet - Recommended regular aerobic exercise. - Reviewed risks of HTN and principles of treatment - Goal of BP <140/90 - SPIRONOLACTONE 25 MG TABLET 2. ASHD (arteriosclerotic heart disease) - ICD9: 414.00, ICD10: I25.10 Controlled on current regimen. F/u with cardiology. 3. Hyperlipidemia with target LDL less than 100 - ICD9: 272.4, ICD10: E78.5 - good control - Continue current medication. 4. Obesity, Class I, BMI 30-34.9 - ICD9: 278.00, ICD10: E66.9 Weight increasing - Behavioral intervention 5. Gastroesophageal reflux disease without esophagitis - ICD9: 530.81, ICD10: K21.9 - Discussed lifestyle modifications including losing weight, limiting caffeine, no meals three hours before sleep, and head of bed elevation - Continue treatment with Prilosec 40 mg QD 6. Moderate persistent asthma, uncomplicated - ICD9: 493.90, ICD10: J45.40 Moderate persistent Asthma stable - Continue current meds - Avoidance of triggers recommended 7. Need for influenza vaccination - ICD9: V04.81, ICD10: Z23 - INFLUENZA VACCINE QUADRIVALENT 6 MO - 64 YRS IM Paula Liu MD documented in this encounter [facility] 06-04-2022 Note HNO ID: [id number] Author: RT Layo(R) Service: Nuclear Medicine Author Type: Technologist Type: Progress Notes Filed: 06/04/2022 4:50 PM Note Text: Radiology Service Progress Note PATIENT NAME: Dinesh Melchor DATE OF SERVICE: June 04, 2022 TIME: 4:44 PM PATIENT IDENTITY VERIFICATION COMPLETED USING TWO (2) IDENTIFIERS: Name and Date of confirmed by patient verbally. FALL SCREENING: Has the patient had 2 falls in the last year or 1 fall with injury or currently using an Ambulatory Assistive Device (Walker, Cane, Wheelchair, Crutches, etc.)? No PATIENT GENDER DATA: Male PATIENT RELEVANT IMPLANT DATA REVIEWED: Not Applicable RADIOLOGY DEPARTMENT: General X-ray: Exam(s) Completed: Chest X-Ray PERIPHERAL IV DATA: Not applicable SIGNED BY: RT Layo(R) June 04, 2022 4:44 PM [facility] 06-04-2022 Influenza virus A and B RNA and SARS-CoV-2 (COVID-19) N gene panel VERONIQUE+probe (Resp) COVID 19 RESULT: SARS-CoV-2 (Agent of COVID-19) Not Detected by RT-PCR or equivalent method. lisette [id number] (ERICH)_EUA This test was developed and its performance characteristics determined by [facility]'s [facility]. This test has been authorized by FDA under an Emergency Use Authorization (EUA). This test has been validated in accordance with the FDA's Guidance Document Policy for Diagnostics Testing in Laboratories Certified to Perform High Complexity Testing under CLIA prior to Emergency use Authorization for Coronavirus Disease 2019 during the Public Health Emergency issued on October 31, 2019. Test performed by [facility], Jonnathan Bills [facility], [address], [place] [address]. 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 Achilles tendinitis 02/10/2011 10/04/2014 ASTHMA UNSPECIFIED 11/26/2005 10/04/2014 documented as of this encounter (statuses as of 12/29/2021) [facility] History of Past illness Narrative* Problem Noted Date Resolved Date Severe persistent asthma without complication 07/01/2018 Asthma 11/03/2014 08/16/2017 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 Achilles tendinitis 02/10/2011 10/04/2014 ASTHMA UNSPECIFIED 11/26/2005 10/04/2014 documented as of this encounter (statuses as of 01/02/2022) [facility] History of Past illness Narrative* Problem Noted Date Resolved Date Severe persistent asthma without complication 07/01/2018 Asthma 11/03/2014 08/16/2017 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 Achilles tendinitis 02/10/2011 10/04/2014 ASTHMA UNSPECIFIED 11/26/2005 10/04/2014 documented as of this encounter (statuses as of 01/12/2022) [facility] History of Past illness Narrative* Problem Noted Date Resolved Date Severe persistent asthma without complication 07/01/2018 Asthma 11/03/2014 08/16/2017 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 Achilles tendinitis 02/10/2011 10/04/2014 ASTHMA UNSPECIFIED 11/26/2005 10/04/2014 documented as of this encounter (statuses as of 01/17/2022) [facility] History of Past illness Narrative* Problem Noted Date Resolved Date Severe persistent asthma without complication 07/01/2018 Asthma 11/03/2014 08/16/2017 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 Achilles tendinitis 02/10/2011 10/04/2014 ASTHMA UNSPECIFIED 11/26/2005 10/04/2014 documented as of this encounter (statuses as of 01/20/2022) [facility] History of Past illness Narrative* Problem Noted Date Resolved Date Severe persistent asthma without complication 07/01/2018 Asthma 11/03/2014 08/16/2017 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 Achilles tendinitis 02/10/2011 10/04/2014 ASTHMA UNSPECIFIED 11/26/2005 10/04/2014 documented as of this encounter (statuses as of 03/15/2022) [facility] History of Past illness Narrative* Problem Noted Date Resolved Date Severe persistent asthma without complication 07/01/2018 Asthma 11/03/2014 08/16/2017 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 Achilles tendinitis 02/10/2011 10/04/2014 ASTHMA UNSPECIFIED 11/26/2005 10/04/2014 documented as of this encounter (statuses as of 03/22/2022) [facility] History of Past illness Narrative* Problem Noted Date Resolved Date Severe persistent asthma without complication 07/01/2018 Asthma 11/03/2014 08/16/2017 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 Achilles tendinitis 02/10/2011 10/04/2014 ASTHMA UNSPECIFIED 11/26/2005 10/04/2014 documented as of this encounter (statuses as of 04/29/2022) [facility] History of Past illness Narrative* Problem Noted Date Resolved Date Severe persistent asthma without complication 07/01/2018 Asthma 11/03/2014 08/16/2017 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 Achilles tendinitis 02/10/2011 10/04/2014 ASTHMA UNSPECIFIED 11/26/2005 10/04/2014 documented as of this encounter (statuses as of 06/04/2022) [facility] History of Past illness Narrative* Problem Noted Date Resolved Date Severe persistent asthma without complication 07/01/2018 Asthma 11/03/2014 08/16/2017 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 Achilles tendinitis 02/10/2011 10/04/2014 ASTHMA UNSPECIFIED 11/26/2005 10/04/2014 documented as of this encounter (statuses as of 06/05/2022) [facility] History of Past illness Narrative* Problem Noted Date Resolved Date Severe persistent asthma without complication 07/01/2018 Asthma 11/03/2014 08/16/2017 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 Achilles tendinitis 02/10/2011 10/04/2014 ASTHMA UNSPECIFIED 11/26/2005 10/04/2014 documented as of this encounter (statuses as of 06/28/2022) [facility] History of Past illness Narrative* Problem Noted Date Resolved Date Severe persistent asthma without complication 07/01/2018 Asthma 11/03/2014 08/16/2017 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 Achilles tendinitis 02/10/2011 10/04/2014 ASTHMA UNSPECIFIED 11/26/2005 10/04/2014 documented as of this encounter (statuses as of 07/17/2022) [facility] History of Past illness Narrative* Problem Noted Date Resolved Date Severe persistent asthma without complication 07/01/2018 Asthma 11/03/2014 08/16/2017 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 Achilles tendinitis 02/10/2011 10/04/2014 ASTHMA UNSPECIFIED 11/26/2005 10/04/2014 documented as of this encounter (statuses as of 07/20/2022) [facility] History of Past illness Narrative* Problem Noted Date Resolved Date Severe persistent asthma without complication 07/01/2018 Asthma 11/03/2014 08/16/2017 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 Achilles tendinitis 02/10/2011 10/04/2014 ASTHMA UNSPECIFIED 11/26/2005 10/04/2014 documented as of this encounter (statuses as of 07/20/2022) [facility] History of Past illness Narrative* Problem Noted Date Resolved Date Severe persistent asthma without complication 07/01/2018 Asthma 11/03/2014 08/16/2017 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 Achilles tendinitis 02/10/2011 10/04/2014 ASTHMA UNSPECIFIED 11/26/2005 10/04/2014 documented as of this encounter (statuses as of 12/06/2022) [facility] History of Past illness Narrative* Problem Noted Date Resolved Date Severe persistent asthma without complication 07/01/2018 Asthma 11/03/2014 08/16/2017 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 Achilles tendinitis 02/10/2011 10/04/2014 ASTHMA UNSPECIFIED 11/26/2005 10/04/2014 documented as of this encounter (statuses as of 12/25/2022) [facility] of Past illness Narrative* Problem Noted Date Resolved Date Severe persistent asthma without complication 07/01/2018 Asthma 11/03/2014 08/16/2017 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 Achilles tendinitis 02/10/2011 10/04/2014 ASTHMA UNSPECIFIED 11/26/2005 10/04/2014 documented as of this encounter (statuses as of 12/27/2022) [facility] History of Past illness Narrative* Problem Noted Date Resolved Date Severe persistent asthma without complication 07/01/2018 Asthma 11/03/2014 08/16/2017 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 Achilles tendinitis 02/10/2011 10/04/2014 ASTHMA UNSPECIFIED 11/26/2005 10/04/2014 documented as of this encounter (statuses as of 01/10/2023) [facility] Varicose veins of left lower extremity with pain Varicose veins of lower extremities with other complications documented in this encounter [facility] Work Phone: Evaluation note* Diagnosis Varicose veins of leg with edema, right documented in this encounter [facility] Work Phone: Evaluation note* Diagnosis RUQ abdominal pain- Primary Abdominal pain, right upper quadrant Gastroesophageal reflux disease Esophageal reflux Essential hypertension, benign Hyperlipidemia with target LDL less than 100 Other and unspecified hyperlipidemia Severe persistent asthma, unspecified whether complicated Gastroesophageal reflux disease without esophagitis Esophageal reflux documented in this encounter [facility] note* Diagnosis RUQ abdominal pain Abdominal pain, right upper quadrant documented in this encounter [facility] note* Diagnosis Paronychia of great toe, left- Primary Onychia and paronychia of toe documented in this encounter [facility] note* Diagnosis Essential hypertension, benign- Primary documented in this encounter [facility] note* Diagnosis Sciatica, right side- Primary Acute pain of right knee documented in this encounter [facility] note* Diagnosis Sinobronchitis- Primary Unspecified sinusitis (chronic) documented in this encounter [facility] note* Diagnosis Viral URI with cough- Primary Acute upper respiratory infections of unspecified site Suspected COVID-19 virus infection documented in this encounter [facility] note* Diagnosis Essential hypertension, benign- Primary ASHD (arteriosclerotic heart disease) Coronary atherosclerosis of unspecified type of vessel, [place] or graft Hyperlipidemia with target LDL less than 100 Other and unspecified hyperlipidemia Obesity, Class I, BMI 30-34.9 Obesity, unspecified Gastroesophageal reflux disease without esophagitis Esophageal reflux Moderate persistent asthma, uncomplicated Unspecified asthma Need for influenza vaccination Need for prophylactic vaccination and inoculation against influenza documented in this encounter [facility] note* Diagnosis Essential hypertension, benign- Primary ASHD (arteriosclerotic heart disease) Coronary atherosclerosis of unspecified type of vessel, [place] or graft Obesity, Class I, BMI 30-34.9 Obesity, unspecified documented in this encounter [facility] note* Diagnosis Essential hypertension, benign- Primary ASHD (arteriosclerotic heart disease) Coronary atherosclerosis of unspecified type of vessel, [place] or graft Hyperlipidemia with target LDL less than 100 Other and unspecified hyperlipidemia Moderate persistent asthma, uncomplicated Unspecified asthma documented in this encounter [facility] note* Diagnosis Edema of left lower extremity- Primary [facility] Diagnosis Edema of left lower extremity documented in this encounter [facility] for referral (narrative)* Diagnostic Procedure Only (Urgent) - Authorized Specialty Diagnoses / Procedures Referred By Paul borjas Referred To Contact US IMAGING Diagnoses RUQ abdominal pain Procedures US ABD RT UPPER QUADRANT US ABDOMINAL REAL TIME W/IMAGE LIMITED Paula Liu MD [address] [place] [address] Us Imaging Referral ID Status Reason Start Date Expiration Date Visits Requested Visits Authorized [id number] Authorized Auto-Generat ed Referral 12/27/2021 01/26/2023 1 1 [facility] Diagnostic Procedure Only (Urgent) - Closed Specialty Diagnoses / Procedures Referred By Paul borjas Referred To Contact US IMAGING Diagnoses RUQ abdominal pain Procedures US ABD RT UPPER QUADRANT US ABDOMINAL REAL TIME W/IMAGE LIMITED Paula Liu MD [address] [place] [address] Us Imaging Referral ID Status Reason Start Date Expiration Date V isits Requested Visits Authorized [id number] Closed Auto-Generate d Referral 12/27/2021 01/26/2023 1 1 [facility] Discharge Instructions * Instructions* Bita Rao RN - 05/11/2019 Do NOT take the following medications on the morning of surgery-vitamin. TAKE the following medications the morning of your surgery-Dulera, Amlodipine, Chlorpheniramine/Acetaminophen, Omeprazole, Flonase. You may take your Albuterol Nebulizer if needed. You may take Tylenol (Acetaminophen) if needed for pain. No Motrin, Ibuprofen, or Advil 24 hours prior to surgery, or longer if instructed by your surgeon. No Aleve or Naprosyn 3 days prior to surgery, or longer if instructed by your surgeon. You will receive a reminder call the day before surgery with your Same Day Surgery arrival time. If you have specific questions, please call your surgeon. Please bring your [employer] Surgical Information folder on the day of surgery. Please malgorzata the last dose taken (date and time ) on your Daily Medications List provided in your After Visit Summary. Please bring a photo ID and insurance information * Attachments The following attachments cannot be sent through Care Everywhere. * Varicose Veins: Endovenous Ablation: Pre-op (Peruvian) * Vein Ligation and Stripping: Pre-op (Peruvian) documented in this encounter* Instructions* Edy Sommer MD - 2019 Discharge Instructions Call your surgeon in 1 to 2 days to schedule a follow-up appointment in 1-2 weeks. OK to shower after 2 days. OK for activity as tolerated. No lifting over 15 pounds. Wound Care: keep wound clean and dry for 2 days. Then MAYRA wrap and underlying bandages can come off. If you have steri-strips, you may remove them 5 days after your surgery. If your steri-strips fall off sooner, you may leave them off. No driving while taking narcotic pain medications. You may take an over the counter stool softener while on narcotics for constipation as needed (colace, miralax, etc). Call your Physician or return to the Emergency Room if you experience: -New or increased pain. -New or increased bleeding. -Nausea & vomitting. -Fever & chills. -Shortness of breath. -Chest pain. -Abdominal distention. documented in this encounter History of Present Illness * Biat Rao RN - 05/11/2019 11:58 AM EDT Jade in Surgery scheduling notified latex allergy. documented in this encounter* Karen Luna RN - 2019 4:36 PM EDT Pt. Instructed to call Dr. Dave's office in the AM to ask about when to resume blood thinner med. Pt. Verbalizes understanding. * Karen Luna RN - 2019 4:30 PM EDT Discharge information given to the patient. Patient and family verbalized understanding of information. All questions were answered before discharge. Patient ambulated, denies dizziness or nausea. Tolerating PO fluids and crackers. Vital signs are stable. Patient has changed and is being discharged home in a wheelchair with valuables. * Tracey Begum, RN - 2019 2:55 PM EDT Spoke with pts Kimberly and updates given; Pt having mild tolerable discomfort with right leg butjust still very sleepy documented in this encounter Advance Directives No Advanced Directives Records FoundDocuments on File Type Date Recorded Patient Broker Expl anation Advance Directives and Living Will Power of Fire Supervisor Latest Code Status on File Code Status Date Activated Date Inactivated Comments Full Code 08/11/2018 10:03 AM 08/12/2018 6:54 PM Full Code 08/01/2018 12:47 AM 08/11/2018 10:03 AM Documents on File Type Date Recorded Patient Broker Expl anation Advance Directives and Living Will Power of Fire Supervisor Latest Code Status on File Code Status Date Activated Date Inactivated Comments Full Code 08/11/2018 10:03 AM 08/12/2018 6:54 PM Full Code 08/01/2018 12:47 AM 08/11/2018 10:03 AM Documents on File Type Date Recorded Patient Broker Expl anation ACP-Advance Directive ACP-Power of Fire Supervisor Documents on File Type Date Recorded Patient Broker Expl anation ACP-Advance Directive ACP-Power of Fire Supervisor Reason for Referral Status Reason Specialty Diagnoses / Procedures Referre d By Contact Referred To Contact [facility] Diagnoses Leg pain, posterior, right Procedures VL DUP LOWER EXTREMITY VENOUS RIGHT Cony James, PA-C [address] [address] Status Reason Specialty Diagnoses / Procedures Referre d By Contact Referred To Contact [facility] Diagnoses Varicose veins of left lower extremity with pain Procedures VL Venous Reflux US Lower Ext Bilateral Roxann Ramirez APRN - GOSPEL SINGER [address] [facility] [address] [place] [address] Specialty Diagnoses / Procedures Referred By Paul borjas Referred To Contact XR IMAGING Diagnoses Acute pain of right knee Procedures XR KNEE GENERAL 4V AP BOTH/PA BOTH/LAT/MERC RIGHT RADIOLOGIC EXAM KNEE COMPLETE 4/MORE VIEWS Paula Liu MD [address] [place] [address] Xr Imaging Referral ID Status Reason Start Date Expiration Date Visits Re quested Visits Authorized [id number] Closed 03/15/2022 09/01/2022 1 1 Specialty Diagnoses / Procedures Referred By Paul borjas Referred To Contact Cardiology Diagnoses Edema of left lower extremity Procedures Vascular US lower extremity venous duplex left Violet Lacy PA-C [address] [place] [address] Referral ID Status Reason Start Date Expiration Date Visits Requested Visits Authorized [id number] Pending Review Perform Procedure 01/29/2023 07/28/2023 1 1 Assessments Diagnosis Leg pain, posterior, right Diagnosis Varicose veins of left lower extremity with pain- Primary Varicose veins of lower extremities with other complications Summary Purpose Family History No Family History Records FoundNo Family History Records FoundNo Family History Records FoundNo Family History Records Found Additional Source Comments (unrecognized sect ion and content) No Status Records FoundNo Status Records FoundNo Status Records FoundNo Status Records Found INFORMATION SOURCE (unrecogn ized section and content) DATE CREATED AUTHOR AUTHOR'S ORGANIZ ATION 09/06/2021 [facility] DATE CREATED AUTHOR AUTHOR'S ORGANIZ ATION 01/14/2023 [facility] DATE CREATED AUTHOR AUTHOR'S ORGANIZ ATION 02/13/2023 [facility] Care Teams (unrecognized sec tion and content) 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 Specialty Start Date End Date Boone Heaton APRN.CNP, DNP [address] [place], [place] [address] PCP - General Family Practice 12/29/20 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 Specialty Start Date End Date Boone Heaton APRN.CNP, DNP [address] [place], [place] [id number] PCP - General Family Practice 12/29/20 12/28/21 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 Specialty Start Date End Date Paula Liu MD [address] [place], [place] [id number] PCP - General Family Practice 12/29/21 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 Specialty Start Date End Date Paula Liu MD [address] [place] [place] [address] PCP - General Family Practice 12/29/21 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 Specialty Start Date End Date Paula Liu MD [address] [place] [place] [address] PCP - General Family Practice 12/29/21 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 Specialty Start Date End Date Paula Liu MD [address] [place] [address] PCP - General Family Practice 12/29/21 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 Specialty Start Date End Date Paula Liu MD [address] [place] [address] PCP - General Family Practice 12/29/21 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 Specialty Start Date End Date Paula Liu MD [address] [place] [address] PCP - General Family Practice 12/29/21 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 Specialty Start Date End Date Paula Liu MD [address] [place] [address] PCP - General Family Medicine 12/29/21 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 Specialty Start Date End Date Paula Liu MD [address] [place] [address] PCP - General Family Medicine 12/29/21 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 Specialty Start Date End Date Paula Liu MD [address] [place] [address] PCP - General Family Medicine 12/29/21 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 Specialty Start Date End Date Paula Liu MD [address] [place] [address] PCP - General Family Medicine 12/29/21 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 Specialty Start Date End Date Paula Liu MD [address] [place] [address] PCP - General Family Medicine 12/29/21 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 Specialty Start Date End Date Paula Liu MD [address] [place] [address] PCP - General Family Medicine 12/29/21 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 Specialty Start Date End Date Paula Liu MD [address] [place] [address] PCP - General Family Medicine 12/29/21 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 Specialty Start Date End Date Malgorzata Sanchez [address] [place] [address] PCP - General 06/26/21 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 Specialty Start Date End Date Malgorzata Sanchez [address] [place] [address] PCP - General 06/26/21 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 Specialty Start Date End Date Malgorzata Sanchez [address] [place] [address] PCP - General 06/26/21 Source Comments (unrecognize d section and content) In the event this informatio n is protected by the Federal Confidentiality of Alcohol and Drug Abuse Patient Records regulations: The Federal rules restrict any use of the information to criminally investigate or prosecute any alcohol or drug abuse patient.[facility] the event this information is protected by the Federal Confidentiality of Alcohol and Drug Abuse Patient Records regulations: The Federal rules restrict any use of the information to criminally investigate or prosecute any alcohol or drug abuse patient.[facility] the event this information is protected by the Federal Confidentiality of Alcohol and Drug Abuse Patient Records regulations: The Federal rules restrict any use of the information to criminally investigate or prosecute any alcohol or drug abuse patient.[facility] the event this information is protected by the Federal Confidentiality of Alcohol and Drug Abuse Patient Records regulations: The Federal rules restrict any use of the information to criminally investigate or prosecute any alcohol or drug abuse patient.[facility] the event this information is protected by the Federal Confidentiality of Alcohol and Drug Abuse Patient Records regulations: The Federal rules restrict any use of the information to criminally investigate or prosecute any alcohol or drug abuse patient.[facility] the event this information is protected by the Federal Confidentiality of Alcohol and Drug Abuse Patient Records regulations: The Federal rules restrict any use of the information to criminally investigate or prosecute any alcohol or drug abuse patient.[facility] the event this information is protected by the Federal Confidentiality of Alcohol and Drug Abuse Patient Records regulations: The Federal rules restrict any use of the information to criminally investigate or prosecute any alcohol or drug abuse patient.[facility] the event this information is protected by the Federal Confidentiality of Alcohol and Drug Abuse Patient Records regulations: The Federal rules restrict any use of the information to criminally investigate or prosecute any alcohol or drug abuse patient.[facility] the event this information is protected by the Federal Confidentiality of Alcohol and Drug Abuse Patient Records regulations: The Federal rules restrict any use of the information to criminally investigate or prosecute any alcohol or drug abuse patient.[facility] the event this information is protected by the Federal Confidentiality of Alcohol and Drug Abuse Patient Records regulations: The Federal rules restrict any use of the information to criminally investigate or prosecute any alcohol or drug abuse patient.[facility] the event this information is protected by the Federal Confidentiality of Alcohol and Drug Abuse Patient Records regulations: The Federal rules restrict any use of the information to criminally investigate or prosecute any alcohol or drug abuse patient.[facility] the event this information is protected by the Federal Confidentiality of Alcohol and Drug Abuse Patient Records regulations: The Federal rules restrict any use of the information to criminally investigate or prosecute any alcohol or drug abuse patient.[facility] HospitalIn the event this information is protected by the Federal Confidentiality of Alcohol and Drug Abuse Patient Records regulations: The Federal rules restrict any use of the information to criminally investigate or prosecute any alcohol or drug abuse patient.[facility]In the event this information is protected by the Federal Confidentiality of Alcohol and Drug Abuse Patient Records regulations: The Federal rules restrict any use of the information to criminally investigate or prosecute any alcohol or drug abuse patient.[facility]In the event this information is protected by the Federal Confidentiality of Alcohol and Drug Abuse Patient Records regulations: The Federal rules restrict any use of the information to criminally investigate or prosecute any alcohol or drug abuse patient.[facility]In the event this information is protected by the Federal Confidentiality of Alcohol and Drug Abuse Patient Records regulations: The Federal rules restrict any use of the information to criminally investigate or prosecute any alcohol or drug abuse patient.[facility] HospitalIn the event this information is protected by the Federal Confidentiality of Alcohol and Drug Abuse Patient Records regulations: The Federal rules restrict any use of the information to criminally investigate or prosecute any alcohol or drug abuse patient.[facility]In the event this information is protected by the Federal Confidentiality of Alcohol and Drug Abuse Patient Records regulations: The Federal rules restrict any use of the information to criminally investigate or prosecute any alcohol or drug abuse patient.[facility] HospitalIn the event this information is protected by the Federal Confidentiality of Alcohol and Drug Abuse Patient Records regulations: The Federal rules restrict any use of the information to criminally investigate or prosecute any alcohol or drug abuse patient.[facility] HospitalIn the event this information is protected by the Federal Confidentiality of Alcohol and Drug Abuse Patient Records regulations: The Federal rules restrict any use of the information to criminally investigate or prosecute any alcohol or drug abuse patient.[facility] Reason for Visit (unrecogniz ed section and content) Specialty Diagnoses / Procedures Referred By Paul t Referred To Contact Family Practice / FAMILY MEDICINE Diagnoses Est care / Cebul Transfer Procedures OFFICE/OUTPATIENT ESTABLISHED MOD MDM 30-39 MIN 4C EST Self Paula Liu MD [address] [place] [address] Referral ID Status Reason Start Date Expiration Date Visits Re quested Visits Authorized [id number] Closed 12/27/2021 09/01/2022 1 1 Reason Comments Radiology US Specialty Diagnoses / Procedures Referred By Contac t Referred To Contact US IMAGING Diagnoses RUQ abdominal pain Procedures US ABD RT UPPER QUADRANT US ABDOMINAL REAL TIME W/IMAGE LIMITED Paula Liu MD [address] [place] [address] Us Imaging Referral ID Status Reason Start Date Expiration Date V isits Requested Visits Authorized [id number] Closed Auto-Generate d Referral 12/27/2021 01/26/2023 1 1 Reason Comments Toe Pain (Big) left, red and swolle n x 10 days Reason Comments Blood Pressure Check Reason Comments Pain right knee Specialty Diagnoses / Procedures Referred By Contac t Referred To Contact Family Practice / FAMILY MEDICINE Diagnoses Need for shingles vaccine Shingles shot follow up Procedures EST PATIENT VISIT LEVEL 2 4C EST Self, Boone Gudino, PAVING INSPECTOR.[employer]ER, DNP [address] [place] [id number] Referral ID Status Reason Start Date Expiration Date V isits Requested Visits Authorized [id number] Authorized 07/24/2021 07/24/2022 99 99 Reason Comments Patient Update Appointment Reason Comments Cough Cough, runny nose an d OROZCO x 3 weeks Reason Comments Chest Pain Appointment Reason Comments Cough Head Congestion Specialty Diagnoses / Procedures Referred By Contac t Referred To Contact Family Medicine / FAMILY MEDICINE Diagnoses Chest pain Headache Chest pain and headache Procedures OFFICE/OUTPATIENT ESTABLISHED MOD MDM 30-39 MIN 4C EST Self Paula Liu MD [address] [place] [address] Referral ID Status Reason Start Date Expiration Date Visits Re quested Visits Authorized [id number] Closed 06/04/2022 09/01/2022 1 1 Reason Onset Date Comments F/U 6 Month Immunizations 06/27/2022 Flu vaccination Specialty Diagnoses / Procedures Referred By Contac t Referred To Contact Family Medicine / FAMILY MEDICINE Diagnoses Follow-up exam 6 month follow up Procedures 4C EST Self Paula Liu MD [address] [place] [address] Referral ID Status Reason Start Date Expiration Date Visits Re quested Visits Authorized [id number] Closed 06/27/2022 09/01/2022 1 1 Reason Comments Patient Update Reason Comments Results Specialty Diagnoses / Procedures Referred By Contac t Referred To Contact Family Medicine / FAMILY MEDICINE Diagnoses Follow-up exam Follow up test results Procedures OFFICE/OUTPATIENT ESTABLISHED MOD MDM 30-39 MIN 4C EST Self Jose Boyer APRN.CNP [address] [place] [address] Referral ID Status Reason Start Date Expiration Date Visits Re quested Visits Authorized [id number] Closed 01/07/2023 09/01/2023 1 1 Reason Onset Date Comments Advice Only 01/29/2023 Test Scheduling 01/29/2023 Stat US 3, OV 02/11/2023 E[facility] Specialty Diagnoses / Procedures Referred By Contac t Referred To Contact Cardiology Diagnoses Edema of left lower extremity Procedures Vascular US lower extremity venous duplex left Violet Lacy PA-C [address] [place] [address] Referral ID Status Reason Start Date Expiration Date Visits Requested Visits Authorized [id number] Pending Review Perform Procedure 01/29/2023 07/28/2023 1 1 FOR RECORDS PERTAINING TO PATIENTS WHO ARE OR HAVE BEEN ENROLLED IN A CHEMICAL DEPENDENCY/SUBSTANCEABUSE PROGRAM, SOME INFORMATION MAY BE OMITTED. This clinical summary was aggregated from multiple sources. Caution should be exercised in using it in the provision of clinical care. This summary normalizes information from multiple sources, and as a consequence, information in this document may materially change the coding, format and clinical context of patient data. In addition, data may be omitted in some cases. CLINICAL DECISIONS SHOULD BE BASED ON THE PRIMARY CLINICAL RECORDS. [facility]. provides no warranty or guarantee of the accuracy or completeness of information in this document.
--- NOTE | 2023-09-06 12:50 | RAD_ITS ---
STUDY: X-RAY CHEST REASON FOR EXAM: Male, 63 years old. Syncope and collapse. TECHNIQUE: Frontal and lateral views of the chest. COMPARISON: June 26, 2023 FINDINGS: The lungs are clear and expanded. There is no demonstrated pleural abnormality. Normal size heart. Normal mediastinum and philomena. Normal visualized pulmonary arteries. Normal visualized aortic arch and descending thoracic aorta. Diffuse thoracic spondylosis. Normal visualized ribs, clavicles, and shoulders. There is no demonstrated abnormality of the visualized soft tissue structures of the upper abdomen. RAD/Chest PA and Lateral IMPRESSION: No interval change. No active or acute cardiopulmonary disease. Electronically Signed: Feliciano Mitchell MD at 13:36 EST ,
[2023-09-06 15:22] LABS: Absolute Lymphocyte Count 1.95 X10^3/uL (0.83-4.51); Absolute Neutrophil Count 3.8 X10^3/uL (2.0-7.7); Basophil# 0.03 X10^3/uL; Basophil% 0.5 % (0-1); Hematocrit 42.2 % (40-54); Hemoglobin 13.4 g/dL (13.0-16.5); Lymphocyte # 1.95 X10^3/ul (0.83-4.51); Lymphocyte % 31.2 % (19-41); Mean Corp Hgb Conc 31.8 g/dL (32-36); Mean Corpuscular Hgb 30.2 pg (27.0-32.0); Mean Platelet Vol. 9.2 fl (6.2-12.0); Monocyte# 0.52 X10^3/uL; Monocyte% 8.3 % (0-10); NRBC Flagged by Analyzer 0 % (0-5); Neutrophil # 3.75 X10^3/uL (2.7-7.7); Neutrophil % 59.8 % (47-70); Platelet Count 336 K/mm3 (150-450); RBC Distribution Width CV 12.5 % (11.6-14.6); RBC Distribution Width SD 43.5 fl (35.1-43.9); Red Blood Count 4.44 M/mm3 (4.6-6.2); White Blood Count 6.3 K/mm3 (4.4-11.0)
[2023-09-06 15:57] LABS: ALB/GLOB Ratio 1.2 RATIO (0.9-2.4); AST(SGOT) 24 U/L (15-37); Alanine Aminotransfer ALT/SGPT 24 U/L (16-61); Albumin, Serum 3.7 g/dL (3.2-5.0); Alkaline Phosphatase 102 U/L (45-117); Anion Gap 6 (5-15); BUN 11 mg/dL (7-18); BUN/Creat Ratio 10.5 RATIO (10-20); Calcium,Total 8.7 mg/dL (8.5-10.1); Chloride 111 mmol/L (98-107); Creatinine, Serum 1.05 mg/dL (0.70-1.30); EST Glomerular Filtration Rate 76 mL/min (>60); Est Glom Filt Rate - Afr Amer 91 mL/min (>60); Globulin 3.1 g/dL (2.2-4.2); Glucose 107 mg/dL (74-106); Potassium 3.2 mmol/L (3.5-5.1); Protein, Total 6.8 g/dL (6.4-8.2); Sodium Level 144 mmol/L (136-145); Thyroid Stim Hormone (TSH) 0.88 uIU/mL (0.358-3.74)
== END | disposition home or self-care (01) ==
PROVIDERS: PCP Family Medicine; Referring Provider Family Medicine; Visit Provider Family Medicine
DX: I10 Essential (primary) hypertension (principal)
CPT/HCPCS: 36415; 71046; 80053; 84443; 85025

== ENCOUNTER → 2023-09-13 | Outpatient (CLI) | payer OTHER, SELFPAY ==
--- OUTSIDE RECORDS SUMMARY | 2023-09-13 12:20 | XMS RPT_ITS | CCD ---
Author Name Unknown Address [address] [place] [address] Organization [facility] Care Team Providers Care Validation Analyst Name Role Phone Arnulfo Garcia Primary Care Provider [phone] CARROL NUNEZ Attending Unavailab BOONE Cr Primary Care Unavailable Malgorzata Sanchez Primary Care Provider Florina UR COORDINATOR.CARLENE ORONA Daniel Primary Care Provider Florina UR COORDINATOR.YEYO, [place] CONCEPCION Primary Care Provider Paula Liu [...] sources) Acetaminophen / oxyCODONE Drug Allergy 6 [place] (20 sources) Doxycycline; Translations: [DOXYCYCLINE CALCIUM] Drug Allergy 6 Other (See Comments), GI Upset [place] (5 sources) Iodine Drug Allergy 6 Hives [place] (20 sources) Latex; Translations: [LATEX] Propensity to adverse reactions to drug 3 Rash, Itching [place] (20 sources) Propofol Drug Allergy 5 Other: See Comments [place] (5 sources) Tetracyclines & Related Propensity to adverse reactions to drug 6 Other (See Comments) [place] (3 sources) oxyCODONE Drug Allergy 6 [place] (2 sources) Adhesive Tape Propensity to adverse reactions to drug 6 [facility] (2 sources) benzoin resin Drug Allergy 0 [facility] (2 sources) Clavulanate Drug Allergy 0 [facility] (20 sources) Acetaminophen / HYDROcodone; Translations: [HYDROCODONE-ACET AMINOPHEN] Drug Allergy 1 Other: See Comments [facility] (20 sources) Adhesive Tape; Translations: [ADHESIVE TAPE (ROSINS)] Propensity to adverse reactions 0 [facility] Work Phone: (20 sources) Loratadine; Translations: [LORATADINE] Drug Allergy 9 Intolerance [facility] Work Phone: (20 sources) Naproxen; Translations: [NAPROXEN] Drug Allergy 6 GI Upset [facility] Work Phone: (20 sources) Simvastatin; Translations: [SIMVASTATIN] Drug Allergy 3 Other: See Comments [facility] (20 sources) Tetracycline; Translations: [TETRACYCLINE] Drug Allergy 6 GI Upset [facility] Work Phone: (8 sources) Spironolactone; Translations: [SPIRONOLACTONE] Drug Allergy 2 Rash [facility] Work Phone: (1 source) Propofol; Translations: [PROPOFOL (PF)] Drug Allergy 5 [facility] Medications Current Medications Medication Drug Class(es) [...] End: 2019 acetaminophen (TYLENOL) tablet 1,000 mg [id number] 200 actuat albuterol 0.09 mg/actuat metered dose [...] Coronary arteriosclerosis; Translations: [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] Onset: 2 [...] sources) Long-term current use of anticoagulant; Translations: [assisted (current) use of anticoagulants] Onset: 09-23-2017 02-23-2019 [...] 16:49-0400 Body weight 115.67 kg Jose Podlogar UR COORDINATOR.POWER SUPERINTENDENT Work Phone: [facility] 01-09-2023 16:49-0400 Diastolic blood pressure 64 mm[Hg] Jose Podlogar UR COORDINATOR.POWER SUPERINTENDENT Work Phone: [facility] 01-09-2023 16:49-0400 Heart rate 61 /min Jose Podlogar UR COORDINATOR.POWER SUPERINTENDENT Work Phone: [facility] 01-09-2023 16:49-0400 Respiratory rate 16 /min Jose Podlogar UR COORDINATOR.POWER SUPERINTENDENT Work Phone: [facility] 01-09-2023 16:49-0400 SaO2% (BldA) [Mass fraction] 98 % Jose Podlogar UR COORDINATOR.POWER SUPERINTENDENT Work Phone: [facility] 01-09-2023 16:49-0400 Systolic blood pressure 132 mm[Hg] Jose Podlogar UR COORDINATOR.POWER SUPERINTENDENT Work Phone: [facility] 06-27-2022 15:35-0400 Body weight 110.95 kg Paula Liu MD Work Phone: [facility] 06-27-2022 15:35-0400 Diastolic blood pressure 74 mm[Hg] Paula Liu MD Work Phone: [facility] 06-27-2022 15:35-0400 Heart rate 68 /min Paula Liu MD Work Phone: [facility] 06-27-2022 15:35-0400 Respiratory rate 16 /min Paula Liu MD Work Phone: [facility] 06-27-2022 15:35-0400 Systolic blood pressure 136 mm[Hg] Paula Liu MD Work Phone: [facility] 06-04-2022 16:18-0400 Body temperature 97.39 [degF] Paula Liu MD Work Phone: [facility] 06-04-2022 16:18-0400 Body weight 112.04 kg Paula Liu MD Work Phone: [facility] 06-04-2022 16:18-0400 Diastolic blood pressure 82 mm[Hg] Paula Liu MD Work Phone: [facility] 06-04-2022 16:18-0400 Heart rate 82 /min Paula Liu MD Work Phone: [facility] 06-04-2022 16:18-0400 Respiratory rate 16 /min Paula Liu MD Work Phone: [facility] 06-04-2022 16:18-0400 SaO2% (BldA) [Mass fraction] 97 % Paula Liu MD Work Phone: [facility] 06-04-2022 16:18-0400 Systolic blood pressure 140 mm[Hg] Paula Liu MD Work Phone: [facility] 04-29-2022 10:41-0400 Body temperature 97.39 [degF] Wesly Partha UR COORDINATOR.POWER SUPERINTENDENT Work Phone: [facility] 04-29-2022 10:41-0400 Body weight 111.4 kg Wesly Partha UR COORDINATOR.POWER SUPERINTENDENT Work Phone: [facility] 04-29-2022 10:41-0400 Diastolic blood pressure 82 mm[Hg] Wesly Partha UR COORDINATOR.POWER SUPERINTENDENT Work Phone: [facility] 04-29-2022 10:41-0400 Heart rate 61 /min Wesly Partha UR COORDINATOR.POWER SUPERINTENDENT Work Phone: [facility] 04-29-2022 10:41-0400 Respiratory rate 16 /min Wesly Partha UR COORDINATOR.POWER SUPERINTENDENT Work Phone: [facility] 04-29-2022 10:41-0400 SaO2% (BldA) [Mass fraction] 99 % Wesly Partha UR COORDINATOR.POWER SUPERINTENDENT Work Phone: [facility] 04-29-2022 10:41-0400 Systolic blood pressure 136 mm[Hg] Wesly Partha UR COORDINATOR.POWER SUPERINTENDENT Work Phone: [facility] 03-15-2022 16:23-0400 Body weight 111.68 kg Paula Liu MD Work Phone: [facility] 03-15-2022 16:23-0400 Diastolic blood pressure 76 mm[Hg] Paula Liu MD Work Phone: [facility] 03-15-2022 16:23-0400 Heart rate 65 /min Paula Liu MD Work Phone: [facility] 03-15-2022 16:23-0400 Respiratory rate 16 /min Paula Liu MD Work Phone: [facility] 03-15-2022 16:23-0400 SaO2% (BldA) [Mass fraction] 97 % Paula Liu MD Work Phone: [facility] 03-15-2022 16:23-0400 Systolic blood pressure 132 mm[Hg] Paula Liu MD Work Phone: [facility] 01-17-2022 13:24-0400 Diastolic blood pressure 74 mm[Hg] Mi Nurse Work Phone: [facility] 01-17-2022 13:24-0400 Heart rate 76 /min Mi Nurse Work Phone: [facility] 01-17-2022 13:24-0400 Systolic blood pressure 130 mm[Hg] Mi Nurse Work Phone: [facility] 01-11-2022 19:05-0400 Body temperature 97.81 [degF] Myranda Dunn UR COORDINATOR.POWER SUPERINTENDENT Work Phone: [facility] 01-11-2022 19:05-0400 Body weight 108.41 kg Myranda Dunn UR COORDINATOR.POWER SUPERINTENDENT Work Phone: [facility] 01-11-2022 19:05-0400 Diastolic blood pressure 82 mm[Hg] Myranda Moan UR COORDINATOR.POWER SUPERINTENDENT Work Phone: [facility] 01-11-2022 19:05-0400 Heart rate 86 /min Myranda Mona UR COORDINATOR.POWER SUPERINTENDENT Work Phone: [facility] 01-11-2022 19:05-0400 Respiratory rate 16 /min Myranda Mona UR COORDINATOR.POWER SUPERINTENDENT Work Phone: [facility] 01-11-2022 19:05-0400 SaO2% (BldA) [Mass fraction] 98 % Myranda Mona UR COORDINATOR.POWER SUPERINTENDENT Work Phone: [facility] 01-11-2022 19:05-0400 Systolic blood pressure 132 mm[Hg] Myranda Mona UR COORDINATOR.POWER SUPERINTENDENT Work Phone: [facility] 2019 16:15-0400 BP Diastolic 73 mm[Hg] [facility] [place] 2019 16:15-0400 BP Systolic 114 mm[Hg] [facility] [place] 2019 16:15-0400 Pulse (Heart Rate) 75 /min [facility] 2019 16:15-0400 Respiratory Rate 16 /min [facility] 16:01-0400 Pulse Oximetry 100 % rolan [facility] [place] 2019 15:15-0400 Body Temperature 98.91 [degF] [facility] 2019 10:02-0400 BMI (Body Mass Index) 33.75 kg/m2 [facility] 2019 10:02-0400 Body weight 109.77 kg Emily [facility] [place] 2019 10:02-0400 Height 180.3 cm Emily [facility] [place] 05-11-2019 11:12-0400 BMI (Body Mass Index) 33.75 kg/m2 [facility] 05-11-2019 11:12-0400 Body Temperature 97.81 [degF] [facility] 05-11-2019 11:12-0400 Body weight 109.77 kg [facility] [place] 05-11-2019 11:12-0400 BP Diastolic 70 mm[Hg] [facility] [place] 05-11-2019 11:12-0400 BP Systolic 121 mm[Hg] [facility] [place] 05-11-2019 11:12-0400 Height 180.3 cm [facility] [place] 05-11-2019 11:12-0400 Pulse (Heart Rate) 64 /min [facility] [place] 05-11-2019 11:12-0400 Pulse Oximetry 96 % [facility] [place] 05-11-2019 11:12-0400 Respiratory Rate 16 /min [facility] [place] Encounters Encounter Date Encounter Type Care Provider Facility Start: 02-11-2023 End: 02-11-2023 ambulatory [facility] Start: 01-30-2023 End: 01-31-2023 ambulatory [facility] Start: 01-30-2023 End: 01-30-2023 Subsequent hospital visit by physician [facility] Us Exam Room 2 [facility] US Procedures Date Procedure Procedure Detail Performing [...] xtr veins complete bilateral study Roxann Ramirez UR COORDINATOR - POWER SUPERINTENDENT Work Phone: Start: 10-27-2019 Adult depression scr eening assessment Jeronimo Longo V, DO Work Phone: Start: 06-08-2019 Dup-scan xtr veins unilateral/limited study Cony James Work Phone: Start: 11-17-2014 Colonoscopy Jeronimo Adonay fraire V, DO Work Phone: Plan of Treatment Date Care Activity Detail Author Start: 12-13-2027 LIPID SCREEN LIPID SCREEN [facility] Start: 01-01-2027 LIPID SCREEN LIPID SCREEN [facility] Start: 12-12-2025 DIABETES SCREEN DIABETES SCREEN [facility] Start: 02-15-2025 DTaP/Tdap/Td vaccine (3 - Tdap) DTaP/Tdap/Td vaccine (3 - Tdap) [facility] Start: 02-15-2025 DTaP/Tdap/Td Vaccine s (3 - Tdap) DTaP/Tdap/Td Vaccines (3 - Tdap) [facility] Start: 02-15-2025 Urine microalbumin profile DTAP,TDAP,TD (3 - Tdap) [facility] Start: 01-01-2025 DIABETES SCREEN DIABETES SCREEN [facility] Start: 11-17-2024 Colonoscopy COLONOSCOPY [facility] Start: 11-17-2024 COLORECTAL CANCER SCREENING COLORECTAL CANCER SCREENING [facility] Start: 11-17-2024 Screening for malign ant neoplasm of colon Colon cancer screen colonoscopy [facility] Start: 2024 Pneumococcal 0-64 ye ars Vaccine (2 of 2 - PPSV23) Pneumococcal 0-64 years Vaccine (2 of 2 - PPSV23) [facility] Start: 03-24-2024 LIPID SCREEN LIPID SCREEN [facility] Start: 01-10-2024 ANNUAL PCP TEAM ADJUNCT NURSING FACULTY LALI DISEASE VISIT ANNUAL PCP TEAM CHRONIC DISEASE VISIT [facility] Start: 01-10-2024 BP CONTROLLED (<130/80) BP CONTROLLE D (<130/80) [facility] Start: 12-27-2023 ANNUAL PCP TEAM ADJUNCT NURSING FACULTY LALI DISEASE VISIT ANNUAL PCP TEAM CHRONIC DISEASE VISIT [facility] Start: 12-13-2023 Hepatitis B surface antibody level LDL CHOLESTEROL [facility] Start: 08-05-2023 DIABETES SCREEN DIABETES SCREEN [facility] Start: 07-11-2023 ANNUAL PCP TEAM ADJUNCT NURSING FACULTY LALI DISEASE VISIT ANNUAL PCP TEAM CHRONIC DISEASE VISIT [facility] Start: 06-27-2023 ANNUAL PCP TEAM ADJUNCT NURSING FACULTY LALI DISEASE VISIT ANNUAL PCP TEAM CHRONIC DISEASE VISIT [facility] Start: 06-27-2023 COVID-19 VACCINE (4 - Booster for Moderna series) COVID-19 VACCINE (4 - Booster for Moderna series) [facility] Immunizations Immunization Date Immunization Notes Care Provider Anuj wyman 06-27-2022 influenza, injectabl e, quadrivalent, contains preservative Paula Liu MD Work Phone: [facility] 06-24-2021 influenza, injectabl e, quadrivalent, contains preservative Jeronimo Donta V, DO Work Phone: [facility] Work Phone: 04-26-2021 zoster vaccine recombinant Jeronimo Donta V, DO Work Phone: [facility] 06-11-2020 influenza, injectabl e, quadrivalent, contains preservative Jernoimo Donta V, DO Work Phone: [facility] 06-19-2019 influenza, injectabl e, quadrivalent, contains preservative Jeronimo Donta V, DO Work Phone: [facility] 07-21-2018 influenza virus vaccine, unspecified formulation [facility] 07-21-2018 influenza, injectabl e, quadrivalent, contains preservative [facility] [place] 06-03-2017 Influenza, injectabl e, Madin Soso Canine Kidney, preservative free, quadrivalent [facility] 06-03-2017 influenza, injectabl e, quadrivalent, contains preservative Jeronimo Donta V, DO Work Phone: [facility] 02-15-2015 Td, unspecified formulation [facility] 02-15-2015 tetanus and diphther ia toxoids, adsorbed, preservative free, for adult use (5 Lf of tetanus toxoid and 2 Lf of diphtheria toxoid) [facility] 08-24-2014 Influenza Vaccine, unspecified formulation [facility] [place] 08-24-2014 influenza virus vaccine, unspecified formulation [facility] 08-24-2014 influenza, seasonal, injectable Jeronimo Longo V, Work Phone: [facility] Work Phone: 09-14-2013 influenza virus vaccine, unspecified formulation [facility] 08-20-2012 influenza virus vaccine, unspecified formulation [facility] 09-20-2011 influenza virus vaccine, unspecified formulation [facility] 09-20-2011 pneumococcal polysaccharide vaccine, 23 valent [facility] 08-09-2009 novel [id number], preservative-free, injectable [facility] 06-16-2009 influenza virus vaccine, unspecified formulation [facility] 11-27-2005 hepatitis B vaccine, adult dosage [facility] 11-26-2005 pneumococcal polysaccharide vaccine, 23 valent [facility] 07-13-2005 influenza virus vaccine, whole virus [facility] 02-17-2005 hepatitis B vaccine, adult dosage [facility] 01-20-2005 hepatitis B vaccine, adult dosage [facility] 12-31-2004 diphtheria and tetan [place] toxoids, adsorbed for pediatric use [place], [place] Payers Date Payer Category Payer Unknown ..[id number] 2021 Unknown [id number] 2021 Unknown [id number] 2021 Unknown [id number] 2021 Unknown [id number] 2018 Unknown BCBS [place] P PO xxxxxxxxxxxx 2018-Present [address] [place] [address] xxxxxxxxxxxx [id number] 1960 Unknown [id number] Social History Date Type Detail Facility Start: 05-11-2019 End: 04-29-2022 Tobacco smoking status ARIS Never smoker [facility] Start: 05-11-2019 End: 2019 [facility] Start: 1960 Sex Assigned At Not on file [facility] [place] Start: 06-26-2021 End: 04-29-2022 Tobacco use and exposure Never used [facility] Start: 06-26-2021 End: 08-30-2021 Alcohol intake Current non-drinker of alcohol (finding) [facility] Work Phone: Start: 06-26-2021 End: 08-30-2021 Alcohol intake [facility] Work Phone: Start: 12-17-2021 End: 01-30-2023 Exposure to SARS-CoV-2 (event) Not sure [facility] Start: 09-30-2021 End: 01-09-2023 History SDOH Alcohol Frequency 1 [facility] Start: 09-30-2021 End: 01-09-2023 History SDOH Alcohol Std Drinks 98 [facility] Start: 09-30-2021 End: 01-09-2023 History SDOH Social Connections Living 3 [facility] Start: 09-30-2021 End: 01-09-2023 History SDOH Financial 5 [facility] Start: 09-30-2021 End: 01-09-2023 History SDOH Transport Med 2 [facility] Start: 08-04-2020 Education 17 [facility] Start: 1960 Sex Assigned At Male C [facility] Work Phone: Start: 01-09-2023 History SDOH Alcohol Std Drinks 0 [facility] Clinical Notes 08-16-2017 to 01-29-2023 Telephone [...] duplex 08/2021. Never had anything on left. [facility] 01-29-2023 Miscellaneous Notes Pt calls in stating [...] anything on left. documented in this encounter [facility] 01-09-2023 Note HNO ID: [id number] Author: Jose Boyer APRN.YEYO Service: ? Author [...] currently using any inhalers ASHD: follows with [facility]. Last office visit on 10/31/2022. Patient [...] GERD (gastroesophageal reflux disease) Hiatal hernia 06/17/2015 [facility] - see scanned documents Hyperlipidemia LDL goal < 100 01/21/2013 Lumbar radiculopathy Peripheral vascular disease (HCC) Primary osteoarthritis of both knees Pulmonary embolus (HCC) 09/23/2017 left Severe persistent asthma with acute exacerbation Syncope 11/06/2017 and collapse Tear of left rotator cuff [facility] Varicose veins of both lower extremities [...] Abs Lymph 1.00 - 4.00 k/uL 1.80 [place]% % 9.9 Abs [place] <0.87 k/uL 0.49 Eosin% % 0.0 Abs [...] (H) CO2 2 (more content not included)... [facility] 01-09-2023 History of Presen t illness [...] currently using any inhalers ASHD: follows with [facility]. Last office visit on 10/31/2022. Patient [...] GERD (gastroesophageal reflux disease) Hiatal hernia 06/17/2015 [facility] - see scanned documents Hyperlipidemia LDL [...] Abs Lymph 1.00 - 4.00 k/uL 1.80 [place]% % 9.9 Abs [place] <0.87 k/uL 0.49 Eosin% % 0.0 Abs [...] follow-up with pulmonology as scheduled Jose Boyer APRN.POWER SUPERINTENDENT Prescription instructions reviewed with patient as applicable. [...] which included preparing to see the patient, [id number] patient care, completing clinical documentation, obtaining and/or reviewing separately obtained history, performing a medically appropriate examination, and counseling and educating the patient/family/caregiver. documented in this encounter [facility] 12-27-2022 Miscellaneous Notes Detailed message left on secure VM for patient. Advised for him to return call if any questions or concerns. ----- Message from Paula Liu MD sent at 12/27/2022 8:41 AM EDT ----- Normal chest xray. Continue supportive care as discussed. documented in this encounter [facility] 12-26-2022 Note HNO ID: [id number] Author: RT Trey(R) Service: ? Author Type: V Block Saw Operator Type: Progress Notes Filed: 12/26/2022 4:05 PM [...] RT Trey(R) December 26, 2022 3:57 PM [facility] 12-26-2022 Note HNO ID: [id number] Author: Paula Liu MD Service: ? Author [...] GERD (gastroesophageal reflux disease) Hiatal hernia 06/17/2015 [facility] - see scanned documents Hyperlipidemia LDL goal < 100 01/21/2013 Lumbar radiculopathy Peripheral vascular disease (HCC) Primary osteoarthritis of both knees Pulmonary embolus (HCC) 09/23/2017 left Severe persistent asthma with acute exacerbation Syncope 11/06/2017 and collapse Tear of left rotator cuff [facility] Varicose veins of both lower extremities [...] kg/m? General Ap (more content not included)... [facility] 12-26-2022 Miscellaneous Notes TC to patient [...] in 2 weeks. documented in this encounter [place] [id number] Note Patient Outreach ([place] [facility]) JILLDINESH ([id number]) 1960 M Date Time Provider Department 12/25/22 MARICHUY BENITEZRITG During your visit today, we recorded the following information about you: Marichuy Benitez MD 12/25/2022 9:57 AM Signed Virtualist Progress Note Triage Call Triage source: Triage Call (Nurse Patient Care Director, [facility] Triage, [facility] Phone Triage) History/Physical Exam: 62 yo man called in for earlier appointment for evaluation of symptoms and refused to speak with me. Nurse Triage Disposition (If call is from Home Care, Home Care nurse triage, or an [facility] Care, the disposition is Go to ED Now ): Go to ED Now Signed in as Primary Virtualist, Secondary Virtualist, or [facility] Telehealth provider: Secondary SIGNATURE: Marichuy Benitez [...] [*08/16/2017 07/01/2018 Pulmonary embolus (HCC) [I26.99] 09/23/2017 assisted current use of anticoagulant therapy *09/23/2017 Moderate persistent asthma, uncomplicated [J45.*07/01/2018 DVT of axillary vein, acute left (HCC) [I82.A12]09/11/2018 Actinic keratosis [L57.0] 09/11/2018 Lumbar radiculopathy [M54.16] 08/05/2020 DDD (degenerative disc disease), lumbar [M51.36]08/05/2020 Peripheral vascular disease (HCC) [I73.9] Obesity, Class I, BMI 30-34.9 [E66.9] 04/26/2021 Encounter Status:Closed by MARICHUY BENITEZ on 12/25/22 [facility] 12-25-2022 Note HNO ID: [id number] Author: Marichuy Benitez MD Service: ? Author Type: Physician Type: Progress Notes Filed: 12/25/2022 9:57 AM Note Text: Virtualist Progress Note Triage Call Triage source: Triage Call (Nurse Patient Care Director, [facility] Triage, [facility] Phone Triage) History/Physical Exam: 62 yo man called in for earlier appointment for evaluation of symptoms and refused to speak with me. Nurse Triage Disposition (If call is from [facility], [facility] nurse triage, or an Express Care, the disposition is Go to ED Now ): Go to ED Now Signed in as Primary Virtualist, Secondary Virtualist, or [facility] Telehealth provider: Secondary SIGNATURE: Marichuy Benitez MD PATIENT NAME: Dinesh Nobleselhardt DATE: December 25, 2022 [facility] 12-25-2022 History of Presen t illness Narrative Virtualist Progress Note Triage Call Triage source: Triage Call (Nurse Patient Care Director, [facility] Triage, [facility] Phone Triage) History/Physical Exam: 62 yo man called in for earlier appointment for evaluation of symptoms and refused to speak with me. Nurse Triage Disposition (If call is from [facility], [facility] nurse triage, or an Express Care, the disposition is Go to ED Now ): Go to ED Now Signed in as Primary Virtualist, Secondary Virtualist, or [facility] Telehealth provider: Secondary SIGNATURE: Marichuy Benitez MD PATIENT NAME: Dinesh Melchor DATE: December 25, 2022 documented in this encounter [facility] 12-06-2022 Miscellaneous Notes Fasting labs ordered. To be completed at least 3 days prior to OV. documented in this encounter [facility] 07-20-2022 Miscellaneous Notes TE opened. 07/20/22. Nancy Goyal LPN documented in this encounter [facility] 07-20-2022 Miscellaneous Notes TC to patient, [...] My Chart Rx Pool (supporting Podlogar, BROOKE Rivera.POWER SUPERINTENDENT) AE 10:33 AM Jose, My pressure readings [...] you Dinesh Melchor documented in this encounter [facility] 07-11-2022 Note HNO ID: [id number] Author: Jose Boyer APRN.CNP Service: ? Author [...] GERD (gastroesophageal reflux disease) Hiatal hernia 06/17/2015 [facility] - see scanned documents Hyperlipidemia LDL goal < 100 01/21/2013 Lumbar radiculopathy Peripheral vascular disease (HCC) Primary osteoarthritis of both knees Pulmonary embolus (HCC) 09/23/2017 left Severe persistent asthma with acute exacerbation Syncope 11/06/2017 and collapse Tear of left rotator cuff [facility] Varicose veins of both lower extremities [...] of the Mediter (more content not included)... [facility] 06-27-2022 Note HNO ID: [id number] Author: Paula Liu MD Service: ? Author [...] GERD (gastroesophageal reflux disease) Hiatal hernia 06/17/2015 [facility] - see scanned documents Hyperlipidemia LDL goal < 100 01/21/2013 [facility] radiculopathy Peripheral vascular disease (HCC) Primary osteoarthritis of both knees Pulmonary embolus (HCC) 09/23/2017 left Severe persistent asthma with acute exacerbation Syncope 11/06/2017 and collapse Tear of left rotator cuff [facility] Varicose veins of both lower extremities [...] needed for Wheezing/Sh (more content not included)... [facility] 06-27-2022 History of Presen t illness [...] GERD (gastroesophageal reflux disease) Hiatal hernia 06/17/2015 [facility] - see scanned documents Hyperlipidemia LDL [...] Abs Lymph 1.00 - 4.00 k/uL 1.55 [place]% % 8.2 Abs [place] <0.87 k/uL 0.42 [place]% % 0.0 Abs [...] Paula Liu MD documented in this encounter [facility] 06-04-2022 Note HNO ID: [id number] Author: RT Layo(R) Service: Nuclear Medicine Author [...] RT Layo(R) June 04, 2022 4:44 PM [facility] 06-04-2022 Influenza virus A and B RNA and SARS-CoV-2 (COVID-19) N gene panel VERONIQUE+probe (Resp) COVID 19 RESULT: SARS-CoV-2 (Agent of COVID-19) Not Detected by RT-PCR or equivalent method. lisette [id number] [employer] (ERICH)_EUA This test was developed and its performance characteristics determined by [facility] [place]. This test has been authorized by FDA under an Emergency Use Authorization (EUA). This test has been validated in accordance with the FDA's Guidance Document Policy for Diagnostics Testing in Laboratories Certified to Perform High Complexity Testing under CLIA prior to Emergency use Authorization for Coronavirus Disease 2019 during the Public Health Emergency issued on October 31, 2019. Test performed by [facility], [facility] [place], [address], [place] [address]. 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 Achilles tendinitis 02/10/2011 10/04/2014 ASTHMA UNSPECIFIED 11/26/2005 10/04/2014 documented as of this encounter (statuses as of 12/29/2021) [facility] History of Past illness Narrative* Problem Noted Date Resolved Date Severe persistent asthma without complication 07/01/2018 Asthma 11/03/2014 08/16/2017 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 Achilles tendinitis 02/10/2011 10/04/2014 ASTHMA UNSPECIFIED 11/26/2005 10/04/2014 documented as of this encounter (statuses as of 01/02/2022) [facility] History of Past illness Narrative* Problem Noted Date Resolved Date Severe persistent asthma without complication 07/01/2018 Asthma 11/03/2014 08/16/2017 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 Achilles tendinitis 02/10/2011 10/04/2014 ASTHMA UNSPECIFIED 11/26/2005 10/04/2014 documented as of this encounter (statuses as of 01/12/2022) [facility] History of Past illness Narrative* Problem Noted Date Resolved Date Severe persistent asthma without complication 07/01/2018 Asthma 11/03/2014 08/16/2017 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 Achilles tendinitis 02/10/2011 10/04/2014 ASTHMA UNSPECIFIED 11/26/2005 10/04/2014 documented as of this encounter (statuses as of 01/17/2022) [facility] History of Past illness Narrative* Problem Noted Date Resolved Date Severe persistent asthma without complication 07/01/2018 Asthma 11/03/2014 08/16/2017 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 Achilles tendinitis 02/10/2011 10/04/2014 ASTHMA UNSPECIFIED 11/26/2005 10/04/2014 documented as of this encounter (statuses as of 01/20/2022) [facility] History of Past illness Narrative* Problem Noted Date Resolved Date Severe persistent asthma without complication 07/01/2018 Asthma 11/03/2014 08/16/2017 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 Achilles tendinitis 02/10/2011 10/04/2014 ASTHMA UNSPECIFIED 11/26/2005 10/04/2014 documented as of this encounter (statuses as of 03/15/2022) [facility] History of Past illness Narrative* Problem Noted Date Resolved Date Severe persistent asthma without complication 07/01/2018 Asthma 11/03/2014 08/16/2017 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 Achilles tendinitis 02/10/2011 10/04/2014 ASTHMA UNSPECIFIED 11/26/2005 10/04/2014 documented as of this encounter (statuses as of 03/22/2022) [facility] History of Past illness Narrative* Problem Noted Date Resolved Date Severe persistent asthma without complication 07/01/2018 Asthma 11/03/2014 08/16/2017 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 Achilles tendinitis 02/10/2011 10/04/2014 ASTHMA UNSPECIFIED 11/26/2005 10/04/2014 documented as of this encounter (statuses as of 04/29/2022) [facility] History of Past illness Narrative* Problem Noted Date Resolved Date Severe persistent asthma without complication 07/01/2018 Asthma 11/03/2014 08/16/2017 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 Achilles tendinitis 02/10/2011 10/04/2014 ASTHMA UNSPECIFIED 11/26/2005 10/04/2014 documented as of this encounter (statuses as of 06/04/2022) [facility] History of Past illness Narrative* Problem Noted Date Resolved Date Severe persistent asthma without complication 07/01/2018 Asthma 11/03/2014 08/16/2017 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 Achilles tendinitis 02/10/2011 10/04/2014 ASTHMA UNSPECIFIED 11/26/2005 10/04/2014 documented as of this encounter (statuses as of 06/05/2022) [facility] History of Past illness Narrative* Problem Noted Date Resolved Date Severe persistent asthma without complication 07/01/2018 Asthma 11/03/2014 08/16/2017 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 Achilles tendinitis 02/10/2011 10/04/2014 ASTHMA UNSPECIFIED 11/26/2005 10/04/2014 documented as of this encounter (statuses as of 06/28/2022) [facility] History of Past illness Narrative* Problem Noted Date Resolved Date Severe persistent asthma without complication 07/01/2018 Asthma 11/03/2014 08/16/2017 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 Achilles tendinitis 02/10/2011 10/04/2014 ASTHMA UNSPECIFIED 11/26/2005 10/04/2014 documented as of this encounter (statuses as of 07/17/2022) [facility] History of Past illness Narrative* Problem Noted Date Resolved Date Severe persistent asthma without complication 07/01/2018 Asthma 11/03/2014 08/16/2017 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 Achilles tendinitis 02/10/2011 10/04/2014 ASTHMA UNSPECIFIED 11/26/2005 10/04/2014 documented as of this encounter (statuses as of 07/20/2022) [facility] History of Past illness Narrative* Problem Noted Date Resolved Date Severe persistent asthma without complication 07/01/2018 Asthma 11/03/2014 08/16/2017 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 Achilles tendinitis 02/10/2011 10/04/2014 ASTHMA UNSPECIFIED 11/26/2005 10/04/2014 documented as of this encounter (statuses as of 07/20/2022) [facility] History of Past illness Narrative* Problem Noted Date Resolved Date Severe persistent asthma without complication 07/01/2018 Asthma 11/03/2014 08/16/2017 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 Achilles tendinitis 02/10/2011 10/04/2014 ASTHMA UNSPECIFIED 11/26/2005 10/04/2014 documented as of this encounter (statuses as of 12/06/2022) [facility] History of Past illness Narrative* Problem Noted Date Resolved Date Severe persistent asthma without complication 07/01/2018 Asthma 11/03/2014 08/16/2017 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 Achilles tendinitis 02/10/2011 10/04/2014 ASTHMA UNSPECIFIED 11/26/2005 10/04/2014 documented as of this encounter (statuses as of 12/25/2022) [facility] History of Past illness Narrative* Problem Noted Date Resolved Date Severe persistent asthma without complication 07/01/2018 Asthma 11/03/2014 08/16/2017 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 Achilles tendinitis 02/10/2011 10/04/2014 ASTHMA UNSPECIFIED 11/26/2005 10/04/2014 documented as of this encounter (statuses as of 12/27/2022) [facility] History of Past illness Narrative* Problem Noted Date Resolved Date Severe persistent asthma without complication 07/01/2018 Asthma 11/03/2014 08/16/2017 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 Achilles tendinitis 02/10/2011 10/04/2014 ASTHMA UNSPECIFIED 11/26/2005 10/04/2014 documented as of this encounter (statuses as of 01/10/2023) [facility] Varicose veins of left [...] esophagitis Esophageal reflux documented in this encounter [facility] note* Diagnosis RUQ abdominal pain Abdominal pain, right upper quadrant documented in this encounter [facility] note* Diagnosis Paronychia of great toe, left- Primary Onychia and paronychia of toe documented in this encounter [facility] note* Diagnosis Essential hypertension, benign- Primary documented in this encounter [facility] note* Diagnosis Sciatica, right side- Primary Acute pain of right knee documented in this encounter [facility] note* Diagnosis Sinobronchitis- Primary Unspecified sinusitis (chronic) documented in this encounter [facility] note* Diagnosis Viral URI with cough- Primary Acute upper respiratory infections of unspecified site Suspected COVID-19 virus infection documented in this encounter [facility] note* Diagnosis Essential hypertension, benign- Primary ASHD (arteriosclerotic heart disease) Coronary atherosclerosis of unspecified type of vessel, wiyot or graft Hyperlipidemia with target LDL less than 100 Other and unspecified hyperlipidemia Obesity, Class I, BMI 30-34.9 Obesity, unspecified Gastroesophageal reflux disease without esophagitis Esophageal reflux Moderate persistent asthma, uncomplicated Unspecified asthma Need for influenza vaccination Need for prophylactic vaccination and inoculation against influenza documented in this encounter [facility] note* Diagnosis Essential hypertension, benign- Primary ASHD (arteriosclerotic heart disease) Coronary atherosclerosis of unspecified type of vessel, wiyot or graft Obesity, Class I, BMI 30-34.9 Obesity, unspecified documented in this encounter [facility] note* Diagnosis Essential hypertension, benign- Primary ASHD (arteriosclerotic heart disease) Coronary atherosclerosis of unspecified type of vessel, wiyot or graft Hyperlipidemia with target LDL less than 100 Other and unspecified hyperlipidemia Moderate persistent asthma, uncomplicated Unspecified asthma documented in this encounter [facility] note* Diagnosis Edema of left lower extremity- Primary [facility] Diagnosis Edema of left lower extremity documented in this encounter [facility] for referral (narrative)* Diagnostic Procedure Only (Urgent) - Authorized Specialty Diagnoses / Procedures Referred By Paul borjas Referred To Contact US IMAGING Diagnoses RUQ abdominal pain Procedures US ABD RT UPPER QUADRANT US ABDOMINAL REAL TIME W/IMAGE LIMITED Paula Liu MD [address] [place] [address] Us Imaging Referral ID Status Reason Start Date Expiration Date Visits Requested Visits Authorized [id number] Authorized Auto-Generat ed Referral 12/27/2021 01/26/2023 1 [facility] Diagnostic Procedure Only (Urgent) - Closed Specialty Diagnoses / Procedures Referred By Paul borjas Referred To Contact US IMAGING Diagnoses RUQ abdominal pain Procedures US ABD RT UPPER QUADRANT US ABDOMINAL REAL TIME W/IMAGE LIMITED Paula Liu MD [address] [place] [address] Us Imaging Referral ID Status Reason Start Date Expiration Date V isits Requested Visits Authorized [id number] Closed Auto-Generate d Referral 12/27/2021 01/26/2023 1 1 [facility] Discharge Instructions * Instructions* Bita Rao [...] please call your surgeon. Please bring your [employer] [facility] Information folder on the day of surgery. Please malgorzata the last dose taken (date and time ) on your Daily Medications List provided in your After Visit Summary. Please bring a photo ID and insurance information * Attachments The following attachments cannot be sent through Care Everywhere. * Varicose Veins: Endovenous Ablation: Pre-op (Congolese) * Vein Ligation and Stripping: Pre-op (Congolese) documented in this encounter* Instructions* Edy Sommer [...] this encounter History of Present Illness * Bita Rao RN - 05/11/2019 11:58 AM EDT Jaed in Surgery scheduling notified latex allergy. documented [...] FoundDocuments on File Type Date Recorded Patient Systems Integration Manager Expl anation Advance Directives and Living Will Power of Wood Grinder Latest Code Status on File Code Status Date Activated Date Inactivated Comments Full Code 08/11/2018 10:03 AM 08/12/2018 6:54 PM Full Code 08/01/2018 12:47 AM 08/11/2018 10:03 AM Documents on File Type Date Recorded Patient Systems Integration Manager Expl anation Advance Directives and Living Will Power of Wood Grinder Latest Code Status on File Code Status Date Activated Date Inactivated Comments Full Code 08/11/2018 10:03 AM 08/12/2018 6:54 PM Full Code 08/01/2018 12:47 AM 08/11/2018 10:03 AM Documents on File Type Date Recorded Patient Systems Integration Manager Expl anation ACP-Advance Directive ACP-Power of Wood Grinder Documents on File Type Date Recorded Patient Systems Integration Manager Expl anation ACP-Advance Directive ACP-Power of Wood Grinder Reason for Referral Status Reason Specialty Diagnoses / Procedures Referre d By Contact Referred To Contact Open Radiology Diagnoses Leg pain, posterior, right Procedures VL DUP LOWER EXTREMITY VENOUS RIGHT Cony James, PA-C [address] [address] Status Reason Specialty Diagnoses / Procedures Referre d By Contact Referred To Contact Open Radiology Diagnoses Varicose veins of left lower extremity with pain Procedures VL Venous Reflux US Lower Ext Bilateral Roxann Ramirez APRN - POWER SUPERINTENDENT [address] [facility] [address] [place] [address] Specialty Diagnoses / Procedures Referred By Paul borjas Referred To Contact XR IMAGING Diagnoses Acute pain of right knee Procedures XR KNEE GENERAL 4V AP BOTH/PA BOTH/LAT/MERC RIGHT RADIOLOGIC EXAM KNEE COMPLETE 4/MORE VIEWS Paula Liu MD [address] [place] [address] Xr Imaging Referral ID Status Reason Start Date Expiration Date Visits Re quested Visits Authorized [id number] Closed 03/15/2022 09/01/2022 1 1 Specialty Diagnoses / Procedures Referred By Paul borjas Referred To Contact Cardiology Diagnoses Edema of left lower extremity Procedures Vascular US lower extremity venous duplex left Violet Lacy PA-C [address] [place] [address] Referral ID Status Reason Start Date Expiration Date Visits Requested Visits Authorized [id number] Pending Review Perform Procedure 01/29/2023 07/28/2023 1 [...] DATE CREATED AUTHOR AUTHOR'S ORGANIZ ATION 09/06/2021 [facility] DATE CREATED AUTHOR AUTHOR'S ORGANIZ ATION 01/14/2023 [facility] DATE CREATED AUTHOR AUTHOR'S ORGANIZ ATION 02/13/2023 [facility] Care Teams (unrecognized sec tion and content) Validation Analyst Relationship Specialty Start Date End Date Boone Heaton APRN.CNP, DNP [address], [place] [address] PCP - General Family Practice 12/29/20 Validation Analyst Relationship Specialty Start Date End Date Boone Heaton APRN.CNP, DNP [address], [place] [id number] PCP - General Family Practice 12/29/20 12/28/21 Validation Analyst Relationship Specialty Start Date End Date Paula Liu MD [address] [place], [place] [id number] PCP - General Family Practice 12/29/21 Validation Analyst Relationship Specialty Start Date End Date Paula Liu MD [address] [place] [address] PCP - General Family Practice 12/29/21 Validation Analyst Relationship Specialty Start Date End Date Paula Liu MD [address] [place] [address] PCP - General Family Practice 12/29/21 Validation Analyst Relationship Specialty Start Date End Date Paula Liu MD [address] [place] [address] PCP - General Family Practice 12/29/21 Validation Analyst Relationship Specialty Start Date End Date Paula Liu MD [address] [place] [address] PCP - General Family Practice 12/29/21 Validation Analyst Relationship Specialty Start Date End Date Paula Liu MD [address] [place] [address] PCP - General Family Practice 12/29/21 Validation Analyst Relationship Specialty Start Date End Date Paula Liu MD [address] [place] [address] PCP - General Family Medicine 12/29/21 Validation Analyst Relationship Specialty Start Date End Date Paula Liu MD [address] [place] [address] PCP - General Family Medicine 12/29/21 Validation Analyst Relationship Specialty Start Date End Date Paula Liu MD [address] [place] [address] PCP - General Family Medicine 12/29/21 Validation Analyst Relationship Specialty Start Date End Date Paula Liu MD [address] [place] [address] PCP - General Family Medicine 12/29/21 Validation Analyst Relationship Specialty Start Date End Date Paula Liu MD [address] [place] [address] PCP - General Family Medicine 12/29/21 Validation Analyst Relationship Specialty Start Date End Date Paula Liu MD [address] [place] [address] PCP - General Family Medicine 12/29/21 Validation Analyst Relationship Specialty Start Date End Date Paula Liu MD [address] [place] [address] PCP - General Family Medicine 12/29/21 Validation Analyst Relationship Specialty Start Date End Date Malgorzata Sanchez [address] [place] [address] PCP - General 06/26/21 Validation Analyst Relationship Specialty Start Date End Date Malgorzata Sanchez [address] [place] [address] PCP - General 06/26/21 Validation Analyst Relationship Specialty Start Date End Date Malgorzata Sanchez [address] [place] [address] PCP - General 06/26/21 Source Comments (unrecognize d section and content) In the event this informatio n is protected by the Federal Confidentiality of Alcohol and Drug Abuse Patient Records regulations: The Federal rules restrict any use of the information to criminally investigate or prosecute any alcohol or drug abuse patient.[facility] the event this information is protected by the Federal Confidentiality of Alcohol and Drug Abuse Patient Records regulations: The Federal rules restrict any use of the information to criminally investigate or prosecute any alcohol or drug abuse patient.[facility] the event this information is protected by the Federal Confidentiality of Alcohol and Drug Abuse Patient Records regulations: The Federal rules restrict any use of the information to criminally investigate or prosecute any alcohol or drug abuse patient.[facility] the event this information is protected by the Federal Confidentiality of Alcohol and Drug Abuse Patient Records regulations: The Federal rules restrict any use of the information to criminally investigate or prosecute any alcohol or drug abuse patient.[facility] the event this information is protected by the Federal Confidentiality of Alcohol and Drug Abuse Patient Records regulations: The Federal rules restrict any use of the information to criminally investigate or prosecute any alcohol or drug abuse patient.[facility] the event this information is protected by the Federal Confidentiality of Alcohol and Drug Abuse Patient Records regulations: The Federal rules restrict any use of the information to criminally investigate or prosecute any alcohol or drug abuse patient.[facility] the event this information is protected by the Federal Confidentiality of Alcohol and Drug Abuse Patient Records regulations: The Federal rules restrict any use of the information to criminally investigate or prosecute any alcohol or drug abuse patient.[facility] the event this information is protected by the Federal Confidentiality of Alcohol and Drug Abuse Patient Records regulations: The Federal rules restrict any use of the information to criminally investigate or prosecute any alcohol or drug abuse patient.[facility] the event this information is protected by the Federal Confidentiality of Alcohol and Drug Abuse Patient Records regulations: The Federal rules restrict any use of the information to criminally investigate or prosecute any alcohol or drug abuse patient.[facility] the event this information is protected by the Federal Confidentiality of Alcohol and Drug Abuse Patient Records regulations: The Federal rules restrict any use of the information to criminally investigate or prosecute any alcohol or drug abuse patient.[facility] the event this information is protected by the Federal Confidentiality of Alcohol and Drug Abuse Patient Records regulations: The Federal rules restrict any use of the information to criminally investigate or prosecute any alcohol or drug abuse patient.[facility] the event this information is protected by the Federal Confidentiality of Alcohol and Drug Abuse Patient Records regulations: The Federal rules restrict any use of the information to criminally investigate or prosecute any alcohol or drug abuse patient.[facility] the event this information is protected by the Federal Confidentiality of Alcohol and Drug Abuse Patient Records regulations: The Federal rules restrict any use of the information to criminally investigate or prosecute any alcohol or drug abuse patient.[facility] the event this information is protected by the Federal Confidentiality of Alcohol and Drug Abuse Patient Records regulations: The Federal rules restrict any use of the information to criminally investigate or prosecute any alcohol or drug abuse patient.[facility]In the event this information is protected by the Federal Confidentiality of Alcohol and Drug Abuse Patient Records regulations: The Federal rules restrict any use of the information to criminally investigate or prosecute any alcohol or drug abuse patient.[facility]In the event this information is protected by the Federal Confidentiality of Alcohol and Drug Abuse Patient Records regulations: The Federal rules restrict any use of the information to criminally investigate or prosecute any alcohol or drug abuse patient.[facility]In the event this information is protected by the Federal Confidentiality of Alcohol and Drug Abuse Patient Records regulations: The Federal rules restrict any use of the information to criminally investigate or prosecute any alcohol or drug abuse patient.[facility]In the event this information is protected by the Federal Confidentiality of Alcohol and Drug Abuse Patient Records regulations: The Federal rules restrict any use of the information to criminally investigate or prosecute any alcohol or drug abuse patient.[facility]In the event this information is protected by the Federal Confidentiality of Alcohol and Drug Abuse Patient Records regulations: The Federal rules restrict any use of the information to criminally investigate or prosecute any alcohol or drug abuse patient.[facility]In the event this information is protected by the Federal Confidentiality of Alcohol and Drug Abuse Patient Records regulations: The Federal rules restrict any use of the information to criminally investigate or prosecute any alcohol or drug abuse patient.[facility] Reason for Visit (unrecogniz ed section and content) Specialty Diagnoses / Procedures Referred By Paul t Referred To Contact Family Practice / FAMILY MEDICINE Diagnoses Est care / Cebul Transfer Procedures OFFICE/OUTPATIENT ESTABLISHED MOD MDM 30-39 MIN 4C EST Self Paula Liu MD [address] [place] [address] Referral ID Status Reason Start Date Expiration Date Visits Re quested Visits Authorized [id number] Closed 12/27/2021 09/01/2022 1 1 Reason Comments Radiology US Specialty Diagnoses / Procedures Referred By Contac t Referred To Contact US IMAGING Diagnoses RUQ abdominal pain Procedures US ABD RT UPPER QUADRANT US ABDOMINAL REAL TIME W/IMAGE LIMITED Paula Liu MD [address] [place] [address] Us Imaging Referral ID Status Reason Start Date Expiration Date V isits Requested Visits Authorized [id number] Closed Auto-Generate d Referral 12/27/2021 01/26/2023 1 [...] LEVEL 2 4C EST Self, Boone Gudino, UR COORDINATOR.POWER SUPERINTENDENT, DNP [address] [place] [id number] Referral ID Status Reason Start Date Expiration Date V isits Requested Visits Authorized [id number] Authorized 07/24/2021 07/24/2022 99 99 Reason Comments [...] 4C EST Self Paula Liu MD [address] [place] [address] Referral ID Status Reason Start Date Expiration Date Visits Re quested Visits Authorized [id number] Closed 06/04/2022 09/01/2022 1 1 Reason Onset Date Comments F/U 6 Month Immunizations 06/27/2022 Flu vaccination Specialty Diagnoses / Procedures Referred By Contac t Referred To Contact Family Medicine / FAMILY MEDICINE Diagnoses Follow-up exam 6 month follow up Procedures 4C EST Self Paula Liu MD [address] [place] [address] Referral ID Status Reason Start Date Expiration Date Visits Re quested Visits Authorized [id number] Closed 06/27/2022 09/01/2022 1 1 Reason Comments Patient Update Reason Comments Results Specialty Diagnoses / Procedures Referred By Contac t Referred To Contact Family Medicine / FAMILY MEDICINE Diagnoses Follow-up exam Follow up test results Procedures OFFICE/OUTPATIENT ESTABLISHED MOD MDM 30-39 MIN 4C EST Self Jose Boyer APRN.CNP [address] [place] [address] Referral ID Status Reason Start Date Expiration Date Visits Re quested Visits Authorized [id number] Closed 01/07/2023 09/01/2023 1 1 Reason Onset Date Comments Advice Only 01/29/2023 Test Scheduling 01/29/2023 Stat US 3, OV 02/11/2023 E[facility] Specialty Diagnoses / Procedures Referred By Contac t Referred To Contact Cardiology Diagnoses Edema of left lower extremity Procedures Vascular US lower extremity venous duplex left Violet Lacy PA-C [address] [place] [address] Referral ID Status Reason Start Date Expiration Date Visits Requested Visits Authorized [id number] Pending Review Perform Procedure 01/29/2023 07/28/2023 1 [...] BE BASED ON THE PRIMARY CLINICAL RECORDS. [facility]. provides no warranty or guarantee of the accuracy or completeness of information in this document.
== END | disposition home or self-care (01) ==
LOC: MFPLAB 11:58
PROVIDERS: PCP Family Medicine; Visit Provider Family Medicine
DX: E87.6 Hypokalemia (principal)
CPT/HCPCS: 36415; 84132

== ENCOUNTER → 2023-11-06 | Outpatient (CLI) | payer OTHER, SELFPAY ==
--- NOTE | 2023-11-06 12:52 | CDU_ITS ---
Reason For Study: Syncope and Collape Rt. Velocities/BP Lt. Velocities/BP Prox CCA 86.4/22.5 cm/sec. Prox CCA 116.2/23.0 cm/sec. Mid CCA 91.9/26.1 cm/sec. Mid CCA 121.6/24.8 cm/sec. Dist CCA 77.3/21.2 cm/sec. Dist CCA 99.7/24.8 cm/sec. Prox ICA 66.3/21.2 cm/sec. Prox ICA 94.2/30.3 cm/sec. Mid ICA 67.4/24.5 cm/sec. Mid ICA 114.0/24.8 cm/sec. Dist ICA 92.1/30.0 cm/sec. Dist ICA 83.3/28.5 cm/sec. Rt. ICA/CCA = 1.0. Lt. ICA/CCA = 0.9. Prox ECA 74.0/10.7 cm/sec. Prox ECA 92.4/13.9 cm/sec. Rt. Vert. 32.5/9.9 cm/sec. Lt. Vert. 38.0/6.6 cm/sec. Right Extracranial There is homogeneous, smooth atherosclerotic plaque noted in the right common carotid artery. There is intimal thickening but no significant atherosclerotic plaque noted in the right internal carotid artery. There is heterogeneous, irregular atherosclerotic plaque noted in the right external carotid artery. Antegrade flow is noted in the right vertebral artery. Left Extracranial There is homogeneous, smooth atherosclerotic plaque noted in the left common carotid artery. There is intimal thickening but no significant atherosclerotic plaque noted in the left internal carotid artery. There is intimal thickening but no significant atherosclerotic plaque noted in the left external carotid artery. Antegrade flow is noted in the left vertebral artery. Procedure Carotid Duplex [id number]. This is a Carotid Duplex examination using B-mode, color flow and specral Doppler. The exam was diagnostic. Exam performed in department. VL/Carotid Duplex Ultrasound Interpretation Summary Normal right extracranial internal carotid. Normal left extracranial internal carotid. Patent and antegrade vertebrals bilaterally. Ordering Physician: Shad Llamas Referring Physician: Shad Llamas Performed By: Bao Riddle RVT
== END | disposition home or self-care (01) ==
LOC: CVS 12:52
PROVIDERS: PCP Family Medicine; Referring Provider Family Medicine; Visit Provider Family Medicine
DX: R55 Syncope and collapse (principal)
CPT/HCPCS: 93880

== ENCOUNTER 2024-02-06 10:46 | Outpatient (CLI) | payer OTHER, SELFPAY ==
--- NOTE | 2024-02-06 10:47 | VDLE_ITS ---
Reason For Study: Rt leg pain RIGHT LEFT GSV is normal. CFV is compressible, spontaneous, phasic, CFV is compressible, spontaneous, phasic, competent, and demonstrates normal competent and demonstrates normal augmentation. augmentation. FV is compressible, spontaneous, phasic, competent and demonstrates normal augmentation. POP V is compressible, spontaneous, phasic, competent and demonstrates normal augmentation. T/P Trunk is compressible. PTV is compressible. RT PerV is compressible. Procedure This is a venous duplex using B-mode, color flow and spectral Doppler. Exam performed in department. A preliminary report was called and/or faxed to Dr. Llamas. VL/Venous Duplex US, Unilateral Interpretation Summary Deep veins of the right lower extremity are patent and compressible segmentally . There is no evidence of right lower extremity deep vein thrombosis. Valvular competence gallo ears intact within the proximal deep venous system on the right . The right great saphenous vein a ppears patent and compressible segmentally. The left common femoral vein is patent and compressib le . Ordering Physician: Shad Llamas Referring Physician: Shad Llamas Performed By: Ana Maria Ba RVT and Student
== END 2024-02-06 23:59 | disposition home or self-care (01) ==
LOC: CVS 10:47
PROVIDERS: PCP Family Medicine; Referring Provider Family Medicine; Visit Provider Family Medicine
DX: M79.606 Pain in leg, unspecified (principal)
CPT/HCPCS: 93971

== ENCOUNTER → 2024-02-10 | Outpatient (CLI) | payer OTHER, SELFPAY ==
[2024-02-14 02:07] LABS: Alternaria alternata <0.10 kU/L (Class 0); Ash, White <0.10 kU/L (Class 0); Aspergillus fumigatus <0.10 kU/L (Class 0); Bahia Grass <0.10 kU/L (Class 0); Beef <0.10 kU/L (Class 0); Bermuda Grass <0.10 kU/L (Class 0); Birch <0.10 kU/L (Class 0); Black Walnut <0.10 kU/L (Class 0); Bluegrass, Kentucky <0.10 kU/L (Class 0); Cat Hair/Dander, Standard <0.10 kU/L (Class 0); Cedar, Mountain <0.10 kU/L (Class 0); Chocolate <0.10 kU/L (Class 0); Cladosporium herbarum <0.10 kU/L (Class 0); Cockroach, American <0.10 kU/L (Class 0); Codfish <0.10 kU/L (Class 0); Corn <0.10 kU/L (Class 0); Cottonwood <0.10 kU/L (Class 0); D farinae Mite <0.10 kU/L (Class 0); D pteronyssinus <0.10 kU/L (Class 0); Dog Epithelia <0.10 kU/L (Class 0); Egg, Whole <0.10 kU/L (Class 0); Elm, American White <0.10 kU/L (Class 0); Hazelnut Tree <0.10 kU/L (Class 0); Hickory, White <0.10 kU/L (Class 0); Immunoglobulin E 174 IU/mL (6-495); Johnson Grass <0.10 kU/L (Class 0); Maple/Box Elder <0.10 kU/L (Class 0); Milk (Cow) <0.10 kU/L (Class 0); Mouse Urine <0.10 kU/L (Class 0); Mucor racemosus <0.10 kU/L (Class 0); Mugwort <0.10 kU/L (Class 0); Mulberry, White <0.10 kU/L (Class 0); Mussels <0.10 kU/L (Class 0); Nettle <0.10 kU/L (Class 0); Oak, White <0.10 kU/L (Class 0); Peanut <0.10 kU/L (Class 0); Pecan <0.10 kU/L (Class 0); Penicillium chrysogen <0.10 kU/L (Class 0); Pigweed, Rough <0.10 kU/L (Class 0); Plantain, English <0.10 kU/L (Class 0); Pork <0.10 kU/L (Class 0); Ragweed, Short/Common <0.10 kU/L (Class 0); Russian Thistle <0.10 kU/L (Class 0); Salmon <0.10 kU/L (Class 0); Sheep Sorrel(Dock) <0.10 kU/L (Class 0); Shrimp <0.10 kU/L (Class 0); Soybean <0.10 kU/L (Class 0); Stemphylium herbarum <0.10 kU/L (Class 0); Sweet Gum <0.10 kU/L (Class 0); Sycamore, American <0.10 kU/L (Class 0); Timothy Grass <0.10 kU/L (Class 0); Tuna <0.10 kU/L (Class 0); Wheat <0.10 kU/L (Class 0)
== END | disposition home or self-care (01) ==
LOC: MTLAB 07:34
PROVIDERS: PCP Family Medicine; Referring Provider Family Medicine; Visit Provider Family Medicine
DX: J30.9 Allergic rhinitis, unspecified (principal)
CPT/HCPCS: 36415; 82785; 86003; 86005

== ENCOUNTER → 2024-03-19 | Outpatient (CLI) | payer OTHER, SELFPAY ==
[2024-03-19 11:06] LABS: Anion Gap 8 (5-15); BUN 9 mg/dL (7-18); BUN/Creat Ratio 9.7 RATIO (10-20); Calcium,Total 9.6 mg/dL (8.5-10.1); Chloride 99 mmol/L (98-107); Cholesterol 144 mg/dL (200); Creatinine, Serum 0.93 mg/dL (0.70-1.30); EST Glomerular Filtration Rate 87 mL/min (>60); Est Glom Filt Rate - Afr Amer 105 mL/min (>60); Glucose 115 mg/dL (74-106); High Density Lipoprotein 57 mg/dL; Potassium 4.1 mmol/L (3.5-5.1); Sodium Level 132 mmol/L (136-145); Triglycerides 68 mg/dL; Very Low Density Lipoprotein 14 mg/dL (5-40)
== END | disposition home or self-care (01) ==
LOC: MFPLAB 08:23
PROVIDERS: PCP Family Medicine; Visit Provider Family Medicine
DX: I10 Essential (primary) hypertension (principal)
CPT/HCPCS: 36415; 80048; 80061

== ENCOUNTER → 2024-05-19 | Outpatient (CLI) | payer OTHER, SELFPAY ==
--- NOTE | 2024-05-19 10:45 | RAD_ITS ---
STUDY: X-RAY CHEST REASON FOR EXAM: Male, 64 years old. Cough. TECHNIQUE: Frontal and lateral views of the chest. COMPARISON: September 06, 2023 FINDINGS: Stable mild hyperinflation. There is no demonstrated pleural abnormality. Cardiomegaly unchanged. Normal mediastinum and philomena. Normal visualized pulmonary arteries. Mild aortic tortuosity unchanged. Mild thoracic spondylosis unchanged. Normal visualized ribs, clavicles, and shoulders. No abnormality of the visualized soft tissue structures of the upper abdomen. RAD/Chest PA and Lateral IMPRESSION: Stable chest with no acute finding. Electronically Signed: Feliciano Mitchell MD at 12:54 EDT ,
== END | disposition home or self-care (01) ==
LOC: MTRAD 10:44
PROVIDERS: PCP Family Medicine; Referring Provider Family Medicine; Visit Provider Family Medicine
DX: R05.8 Other specified cough (principal)
CPT/HCPCS: 71046

== ENCOUNTER → 2024-06-12 | Outpatient (CLI) | payer OTHER, SELFPAY ==
[2024-06-12 15:35] LABS: Anion Gap 4 (5-15); BUN 8 mg/dL (7-18); BUN/Creat Ratio 8.1 RATIO (10-20); Calcium,Total 9.4 mg/dL (8.5-10.1); Chloride 107 mmol/L (98-107); Creatinine, Serum 0.98 mg/dL (0.70-1.30); EST Glomerular Filtration Rate 81 mL/min (>60); Est Glom Filt Rate - Afr Amer 98 mL/min (>60); Glucose 87 mg/dL (74-106); Sodium Level 140 mmol/L (136-145)
== END | disposition home or self-care (01) ==
LOC: MTLAB 11:43
PROVIDERS: PCP Family Medicine; Referring Provider Family Medicine; Visit Provider Family Medicine
DX: I10 Essential (primary) hypertension (principal)
CPT/HCPCS: 36415; 80048

== ENCOUNTER → 2024-08-05 | Outpatient (CLI) | payer OTHER, SELFPAY | END | disposition home or self-care (01) | LOC: PSN 07:10 | PROVIDERS: PCP Family Medicine; Referring Provider Nurse Practitioner Acute Care; Visit Provider Nurse Practitioner Acute Care | DX: J45.51 Severe persistent asthma with (acute) exacerbation (principal) | CPT/HCPCS: 94060; 94726; 94729 ==

== ENCOUNTER → 2025-01-05 | Outpatient (CLI) | payer OTHER, SELFPAY ==
--- NOTE | 2025-01-05 15:41 | RAD_ITS ---
PROCEDURE: FOOT MIN 3 VIEWS 01/05/2025 REASON FOR EXAM: FOOT INJURY TECHNIQUE: 3 view(s) of the left foot. COMPARISON: None FINDINGS: Diffuse osteopenia. Moderate-severe multifocal osteoarthritis, most prominent of the 1st MTP. No acute fracture or dislocation. No significant soft tissue swelling. Moderate posterior and plantar calcaneal enthesophytes. No acute fracture or dislocation. RAD/Foot min 3 Views IMPRESSION: Severe osteoarthritis. No acute findings. Reading Location: [facility]
--- NOTE | 2025-01-05 15:41 | RAD_ITS ---
PROCEDURE: ANKLE MIN 3 VIEWS 01/05/2025 REASON FOR EXAM: ANKLE INJURY TECHNIQUE: 3 views of the left ankle COMPARISON: None FINDINGS: No acute fracture or dislocation. Ankle mortise and joint spaces are maintained. Small osseous fragment along the lateral malleolus, likely from prior fracture. No significant soft tissue swelling. Moderate posterior and plantar calcaneal enthesophyte. RAD/Ankle min 3 Views IMPRESSION: Osseous fragment along the lateral malleolus, from prior fracture. Reading Location: [facility]
== END | disposition home or self-care (01) ==
LOC: MTRAD 15:41
PROVIDERS: PCP Family Medicine; Referring Provider Family Medicine; Visit Provider Family Medicine
DX: M25.572 Pain in left ankle and joints of left foot (principal); S99.922A Unspecified injury of left foot, initial encounter; X58.XXXA Exposure to other specified factors, initial encounter
CPT/HCPCS: 73610; 73630

== ENCOUNTER 2025-02-19 16:47 | Emergency (ER) | payer OTHER, SELFPAY ==
[2025-02-19] VITALS (7 sets, daily range): BP systolic 116–148; BP diastolic 59–76; PULSE 57–67; RESP 16–18; TEMP 36–36.9; O2SAT 95–100; BMI 36.4
--- NOTE | 2025-02-19 17:46 | EDS_ITS ---
HPI History of Present Illness Chief Complaint: Syncope Informant: patient and spouse/S.O. Onset/Context/Timing Onset: Today Context: Sudden Onset Timing: Lasts (2 to 3 minutes) Quality: Lightheaded Location: Generalized Worsened by: Nothing Relieved by: Nothing Narrative Narrative: Patient presents with a syncopal episode that occurred today. Patient states that he actually passed out 3-4 times today. Patient states he gets lightheaded. Patient states that he was on his lawnmower mowing a neighbors yard when he passed out. Patient states he remembers mowing the yard and then remembers waking up laying next to the mower on the ground. Patient thinks he was only out for approximately 2 to 3 minutes. states his blood pressure was 127/66 and his blood sugar was 127 at home. Patient denies any chest pain. Patient states he did have a cough and has had 1 episode of posttussive syncope this morning. [facility] Medical History Acute bronchitis, unspecified Sinusitis Acute sinus infection Factor 5 Leiden mutation, heterozygous Right thigh pain History of venous thromboembolism History of pulmonary embolus (PE) Normochromic normocytic anemia Asthma Cellulitis of left upper extremity Deep vein thrombosis (DVT) of left upper extremity Pulmonary embolism on left Peripheral vascular disease Asthma, severe persistent GERD (gastroesophageal reflux disease) Aspiration pneumonia of right lower lobe Chronic cough Hypersomnia PND (paroxysmal nocturnal dyspnea) Syncope and collapse Acute left lower lobe peripheral PE Partially treated aspiration pneumonia GERD (gastroesophageal reflux disease) 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 Benign essential hypertension Home Medications ?Medication ?Instructions ?Recorded ?Last Taken ?Type atorvastatin 20 mg tablet 20 mg PO QHS Cholesterol 08/31/18 History multivitamin with folic acid 400 1 tab PO DAILY Supple ment 06/17/15 09/01/18 History mcg tablet omeprazole 40 mg capsule,delayed 40 mg PO DAILY 09/01/18 History release acetaminophen 325 mg capsule 325 mg PO ONCE PRN Pain O r Fever 02/23/20 Unknown History (Tylenol) albuterol sulfate 90 mcg/actuation 2 inh inhalation Q6 H PRN shortness 08/31/20 Unknown Rx breath activated powder inhaler of breath or wheezing #1 ea montelukast 10 mg tablet 10 mg PO QPM #30 tabs Unknown Rx spacer #1 ea 01/01/24 Unknown Rx benralizumab 30 mg/mL subcutaneous 30 mg subcut Q8W #1 mL 03/30/24 Unknown Rx auto-injector (Fasenra Pen) losartan 50 mg tablet 50 mg PO QDAY 07/08/24 Unkno wn History budesonide 0.5 mg/2 mL suspension 0.5 mg (2 mL) inhala tion BID #60 mL 08/19/24 Unknown Rx for nebulization formoterol fumarate 20 mcg/2 mL 2 ml inhalation BID #6 0 mL 08/19/24 Unknown Rx solution for nebulization Allergy/AdvReac Type Severity Reaction Status Date / Time amoxicillin (From Augmentin) Allergy Intermediate Rash/hives Verified 02/19/25 16:52 clavulanic acid (From Allergy Intermediate Rash/hives Verified 02/19/25 16:52 Augmentin) spironolactone Allergy Intermediate Rash and Verified 02/19/25 16:52 itching povidone-iodine (From AdvReac Severe Hives Verified 02/19/25 16:52 Betadine) soap (From Betadine) AdvReac Severe Hives Verified 02/19/25 16:52 losartan AdvReac Intermediate Persistent Verified 02/19/25 16:52 dry cough adhesive tape AdvReac Rash Verified 02/19/25 16:52 benzoin AdvReac Rash Verified 02/19/25 16:52 doxycycline calcium (From AdvReac constipatio Verified 02/19/25 16:52 Vibramycin) n doxycycline hyclate (From AdvReac constpation Verified 02/19/25 16:52 Vibramycin) doxycycline monohydrate AdvReac constipatio Verified 02/19/25 16:52 (From Vibramycin) n hydrocodone bitartrate (From AdvReac constipatio Verified 02/19/25 16:52 Vicodin) n tetracycline (Tetracycline) AdvReac constipatio Verified 02/19/25 16:52 n Family History Brother Hypertension Surgical History History of hand surgery History of sinus surgery History of vein stripping History of knee surgery History of vasectomy Hx of appendectomy History of cholecystectomy Social History Smoking Status: Never smoker second hand exposure: No alcohol intake: never substance use type: does not use caffeine: Yes Type: carbonated beverages Number of servings: 4 ROS ROS ED Constitutional Constitutional ED: Denies chills or fever(s) Eyes Eyes: Denies blurry vision or change in vision ENT ENT ED: Denies rhinorrhea or sore throat Cardiovascular Cardiovascular: Denies chest pain or palpitations Respiratory/Chest Respiratory/Chest: Reports cough; Denies dyspnea Gastrointestinal Gastrointestinal: Denies nausea or vomiting Genitourinary Genitourinary ED: Denies dysuria or hematuria Musculoskeletal Musculoskeletal: Denies back pain or neck pain Integumentary Denies abscess or rash Neurologic Neurologic: Denies headache(s) or weakness Allergic/Immunologic Allergic/Immunologic ED: Denies mouth swelling or urticaria EXAM Physical Exam Const Vital Signs: 02/19/25 16:48 02/19/25 18:14 02/19/25 18:16 Temperature 96.8 F L Temperature Source Temporal Pulse Rate 57 L 67 Pulse Rate [Lying] Pulse Rate [Sitting (for 1 minute prior to obtaining)] Pulse Rate [Standing (for 1 minute prior to obtaining)] Respiratory Rate 16 18 Respiratory Effort Normal Non-Labored Respiratory Pattern Normal Blood Pressure 116/59 L 131/66 H Blood Pressure [Lying] Blood Pressure [Sitting (for 1 minute prior to obtaining)] Blood Pressure [Standing (for 1 minute prior to obtaining)] Blood Pressure Mean 78 87 Blood Pressure Mean [Lying] Blood Pressure Mean [Sitting (for 1 minute prior to obtaining)] Blood Pressure Mean [Standing (for 1 minute prior to obtaining)] Pulse Ox 96 95 Oxygen Delivery Method Room Air 02/19/25 19:00 02/19/25 19:32 02/19/25 20:00 Temperature Temperature Source Pulse Rate 65 58 L Pulse Rate [Lying] 59 L Pulse Rate [Sitting (for 1 minute prior to obtaining)] 61 Pulse Rate [Standing (for 1 minute prior to obtaining)] 66 Respiratory Rate 18 18 Respiratory Effort Respiratory Pattern Blood Pressure 135/68 H 123/62 H Blood Pressure [Lying] 148/71 H Blood Pressure [Sitting (for 1 minute prior to obtaining)] 137/76 H Blood Pressure [Standing (for 1 minute prior to obtaining)] 146/74 H Blood Pressure Mean 90 82 Blood Pressure Mean [Lying] 96 Blood Pressure Mean [Sitting (for 1 minute prior to obtaining)] 96 Blood Pressure Mean [Standing (for 1 minute prior to obtaining)] 98 Pulse Ox 100 98 Oxygen Delivery Method Room Air Room Air Positive well nourished and well developed General Appearance ED: well developed and NAD HEENT Reports moist mucous membranes Neck supple and no JVD Resp normal respiratory effort and clear to auscultation bilaterally Cardio regular rate and regular rhythm GI non-tender and non-distended Palpation: soft Extremity normal to inspection General Extremety ED: Negative for edema or tenderness General Extremity: Negative for edema Neuro oriented x3, CN's II-XII intact bilaterally and no sensory deficits noted Sensorium / Orientation: alert Motor Exam: strength 5/5 throughout Psych mental status grossly normal MDM MDM MDM Narrative Medical decision making narrative: Differential diagnosis includes cardiac dysrhythmia, cardiac ischemia, pneumonia, electrolyte abnormality, vasovagal syncope, dehydration, and anxiety. EKG will be obtained to assess for cardiac dysrhythmia and cardiac ischemia. Chest x-ray will be obtained to assess for pneumonia and bronchitis. CBC will be obtained to assess for leukocytosis and anemia. Basic metabolic profile will be obtained to assess for electrolyte abnormality and renal function. D-dimer will be obtained to assess for pulmonary embolism. High-sensitivity troponin will be obtained to assess for cardiac ischemia. 2-hour repeat high-sensitivity troponin will be obtained to assess for ongoing cardiac ischemia. Lab Data Attestation: I reviewed the patient's lab results. Lab results narrative: CBC was reviewed. There is a mild leukocytosis of 14.1. The remainder is within normal limits. Basic metabolic profile was reviewed. Creatinine was slightly elevated 1.29. The remainder is within normal limits. PT with INR and PTT were reviewed and were within normal limits. D-dimer was reviewed and was normal at 0.40. High-sensitivity troponin was reviewed and was normal at 14. Labs: Laboratory Results - last 24 hr 02/19/25 19:05 WBC 14.1 H RBC 4.39 L Hgb 13.8 Hct 40.5 MCV 92.3 MCH 31.4 MCHC 34.1 RDW Std Deviation 39.4 RDW Coeff of Joanie 11.6 Plt Count 365 MPV 8.7 Immature Gran % (Auto) 0.400 Neut % (Auto) 82.9 H Lymph % (Auto) 9.2 L [place] % (Auto) 7.4 Eos % (Auto) 0.0 Baso % (Auto) 0.1 Absolute Neuts (auto) 11.7 H Absolute Lymphs (auto) 1.30 Nucleated RBC % 0 PT 13.2 INR 1.0 APTT 25.8 D-Dimer Quant (PE/DVT) 0.40 Sodium 138 Potassium 3.5 Chloride 99 Carbon Dioxide 26.8 Anion Gap 12 BUN 12 Creatinine 1.29 H Estim Creat Clear Calc 74.76 Est GFR (MDRD) Non-Af 62 BUN/Creatinine Ratio 9.1 L Glucose 139 H Calcium 9.6 Troponin T High Sens 14 Radiography Chest X-Ray - ED: 2 View, Read by ED Physician, Read by Radiologist and No Acute Disease Diagnostic Testing: Clinical Impression(s) from Imaging Studies Chest X-Ray 02/19/25 19:21 IMPRESSION: No acute cardiopulmonary process. Reading Location: [facility] [place] and lateral chest x-ray was obtained. There are 2 views. On my independent interpretation, lung marino are clear. There is normal cardiac silhouette. Bony thorax is normal. There is no acute process noted. Radiologist also interpreted the x-ray and agrees. EKG Initial EKG: Attestation: I personally reviewed and interpreted this EKG as follows: Interpretation: Sinus Bradycardia (58) Comments: EKG was obtained. On my independent interpretation, it showed a sinus bradycardia with a rate of 58. WI interval, QRS interval, and QTc intervals were all normal. [place] was normal. There are no acute ST or T wave changes. Prior EKG tracings: available for review Prior: Unchanged (06/26/2023) Treatment and Re-Evaluation :: Patient was given IV fluids. Patient was advised of his findings. Patient was instructed to drink plenty of fluids. Patient was instructed to follow-up with his primary care physician in 5 to 7 days. Patient was instructed to return if worse in any way. Patient understood and was agreeable plan. All questions were answered. Discharge Plan Triage Chief Complaint: Syncope ED Provider: Mynor Hall Dx/Rx/DC Orders Clinical Impression: Syncope and collapse, Benign essential hypertension Instructions: ED Fainting, Uncertain Cause Prescriptions: No Action acetaminophen [Tylenol] 325 mg capsule 325 mg PO ONCE PRN (Reason: Pain Or Fever) (DME) spacer See Rx Instructions .ROUTE .MEDSUPPLY Qty: 1 0RF Rx Instructions: As directed losartan 50 mg tablet 50 mg PO QDAY budesonide 0.5 mg/2 mL suspension for nebulization 0.5 mg inhalation BID Qty: 60 2RF formoterol fumarate 20 mcg/2 mL solution for nebulization 2 ml inhalation BID Qty: 60 2RF atorvastatin 20 MG tablet 20 mg PO QHS Patient Comments: cholesterol multivitamin with folic acid 1 TABLET tablet 1 tab PO DAILY Patient Comments: supplement omeprazole 40 MG capsule,delayed release(DR/EC) 40 mg PO DAILY albuterol sulfate 90 mcg/actuation aerosol powdr breath activated 2 inh INHALATION Q6H PRN (Reason: shortness of breath or wheezing) Qty: 1 6RF montelukast 10 mg tablet 10 mg PO QPM Qty: 30 3RF Fasenra Pen 30 mg/mL auto-injector 30 mg subcut Q8W Qty: 1 6RF Primary Care Provider: Shad Llamas Referrals: Shad Llamas MD [Primary Care Provider] - 3-5 Days Print Language: Vietnamese Disposition Disposition: Home, Self Care
--- NOTE | 2025-02-19 18:16 | EKG12_ITS ---
Test Reason : SYNCOPE Blood Pressure : */* mmHG Vent. Rate : 58 BPM Atrial Rate : 58 BPM P-R Int : 144 ms QRS Dur : 94 ms QT Int : 428 ms P-R-T Axes : 40 9 47 degrees QTcB Int : 420 ms Sinus bradycardia Possible Inferior infarct (cited on or before 26-Jun-2023) Abnormal ECG Confirmed by Campbell Kennedy ([id number]), restaurant expeditor MCKAYLA LERMA ([id number]) on 02/23/2025 11:43:05 AM Referred By: Confirmed By: Campbell Kennedy
--- NOTE | 2025-02-19 19:21 | RAD_ITS ---
EXAM: XR Chest, 2 Views CLINICAL INDICATION: SYNCOPE TECHNIQUE: Frontal and lateral views of the chest. COMPARISON: No relevant prior studies available. FINDINGS: LUNGS AND PLEURAL SPACES: Unremarkable. No consolidation. No pneumothorax. HEART: Unremarkable. No cardiomegaly. MEDIASTINUM: Unremarkable. Normal mediastinal contour. BONES/JOINTS: Unremarkable. No acute fracture. RAD/Chest PA and Lateral IMPRESSION: No acute cardiopulmonary process. Reading Location: [id number]
[2025-02-19 19:26] LABS: Absolute Neutrophil Count 11.7 X10^3/uL (2.0-7.7); Basophil# 0.01 X10^3/uL; Basophil% 0.1 % (0-1); Hematocrit 40.5 % (40-54); Hemoglobin 13.8 g/dL (13.0-16.5); Lymphocyte % 9.2 % (19-41); Mean Corp Hgb Conc 34.1 g/dL (32-36); Mean Corpuscular Hgb 31.4 pg (27.0-32.0); Mean Corpuscular Volume 92.3 fL (80-94); Mean Platelet Vol. 8.7 fl (6.2-12.0); Monocyte# 1.05 X10^3/uL; Monocyte% 7.4 % (0-10); NRBC Flagged by Analyzer 0 % (0-5); Neutrophil # 11.69 X10^3/uL (2.7-7.7); Neutrophil % 82.9 % (47-70); Platelet Count 365 K/mm3 (150-450); RBC Distribution Width CV 11.6 % (11.6-14.6); RBC Distribution Width SD 39.4 fl (35.1-43.9); Red Blood Count 4.39 M/mm3 (4.6-6.2); White Blood Count 14.1 K/mm3 (4.4-11.0)
[2025-02-19] MEDS: 0.9% Normal Saline (1000mL) 1,000 ML 1000 ML IV (19:31)
[2025-02-19 19:45] LABS: Anion Gap 12 (5-15); BUN 12 mg/dL (4-19); BUN/Creat Ratio 9.1 RATIO (10-20); Calcium,Total 9.6 mg/dL (7.6-11.0); Carbon Dioxide 26.8 mmol/L (21.0-32.0); Chloride 99 mmol/L (98-108); Creatinine, Serum 1.29 mg/dL (0.70-1.20); EST Glomerular Filtration Rate 62 (>60); Estimated Creatinine Clearance 74.76 ml/min (50-250); Glucose 139 mg/dL (70-99); Potassium 3.5 mmol/L (3.3-5.1); Sodium Level 138 mmol/L (133-145)
[2025-02-19 19:51] LABS: Prothrombin Time (Protime)PT. 13.2 SECONDS (11.7-14.9)
[2025-02-19 19:52] LABS: Partial Thromboplast Time 25.8 Seconds (24.1-36.2)
[2025-02-19 19:58] LABS: Troponin T High Sensitivity 14 ng/L (<=22)
== END 2025-02-19 21:08 | disposition home or self-care (01) ==
PROVIDERS: Emergency Provider Emergency Medicine; PCP Family Medicine; Visit Provider Emergency Medicine
DX: R55 Syncope and collapse (principal); I10 Essential (primary) hypertension; J45.909 Unspecified asthma, uncomplicated; K21.9 Gastro-esophageal reflux disease without esophagitis; D72.829 Elevated white blood cell count, unspecified
CPT/HCPCS: 71046; 80048; 84484; 85025; 85379; 85610; 85730; 93005; 96360; 99285; A4216

== ENCOUNTER → 2025-03-22 | Outpatient (CLI) | payer MEDICARE, SELFPAY ==
--- NOTE | 2025-03-22 14:45 | VDLE_ITS ---
Reason For Study Reason For Study: Left leg pain RIGHT LEFT CFV is compressible, spontaneous, phasic, competent CFV is compressible, spontaneous, phasic, competent, and demonstrates normal augmentation. and demonstrates normal augmentation. Procedure FV is compressible, spontaneous, phasic, competent This is a venous duplex using B-mode, color flow and and demonstrates normal augmentation. spectral Doppler. POP V is compressible, spontaneous, phasic, competent Exam performed in department. and demonstrates normal augmentation. A preliminary report was called and/or faxed to T/P Trunk is compressible. Debra. PTV is compressible. LT PerV is compressible. GSV is absent. VL/Venous Duplex US, Unilateral Interpretation Summary Deep veins of the left lower extremity are patent and compressible segmentally. There is no evidence of left lower extremity deep vein thrombosis. Valvular competence appears intact within the p roximal deep venous system on the left . The left great saphenous vein is absent. The right common femoral vein is paten t and compressible . Ordering Physician: Bernardino Richardson Referring Physician: Shad Llamas Performed By: Ana Maria Ba RVT
== END | disposition home or self-care (01) ==
LOC: CVS 14:44
PROVIDERS: PCP Family Medicine; Referring Provider Family Medicine; Visit Provider Family Medicine
DX: M79.605 Pain in left leg (principal)
CPT/HCPCS: 93971

== ENCOUNTER → 2025-07-22 | Outpatient (CLI) | payer MEDICARE, OTHER, SELFPAY | END | disposition home or self-care (01) | LOC: LABSPEC 15:18 | PROVIDERS: PCP Family Medicine; Referring Provider Otolaryngology; Visit Provider Otolaryngology | DX: J32.9 Chronic sinusitis, unspecified (principal) | CPT/HCPCS: 87070; 87205 ==